=== PATIENT | female | born 1940 | race Caucasian/White ===

== ENCOUNTER → 2017-12-28 10:22 | Outpatient (CLI) | payer MEDICARE, OTHER, SELFPAY ==
[2017-12-28 10:35] VITALS: BP 131/82; PULSE 82; RESP 16; TEMP 36.4; O2SAT 94; BMI 23.0
[2017-12-28] MEDS: DENOSUMAB 60 MG/ML ML SQ (10:52)
== END ==
PROVIDERS: Family Provider Internal Medicine; PCP Internal Medicine; Visit Provider Internal Medicine
DX: M81.0 Age-related osteoporosis without current pathological fracture (principal)
CPT/HCPCS: 96372

== ENCOUNTER → 2018-03-17 06:08 | Outpatient (CLI) | payer MEDICARE, OTHER, SELFPAY ==
--- NOTE | 2018-03-17 06:12 | ECHOD_ITS ---
Reason For Study: CAD/ASHD Procedure This was a 2D Doppler, Color Flow transthoracic echocardiogram. The exam was of adequate technical quality. Exam performed in department. Left Ventricle Normal LV size. Left ventricular systolic function is normal. The estimated ejection fraction is 70 %. Normal diastology for age. No regional wall motion abnormalities noted. Right Ventricle Normal RV size. Normal systolic function. Atria Borderline to mildly enlarged left atrium. Normal right atrium. No doppler evidence for ASD. Mitral Valve There is mild mitral annular calcification. Normal mitral valve. Trivial mitral valve insufficiency. Tricuspid Valve Normal tricuspid valve. Trivial tricuspid valve insufficiency. Right ventricular systolic pressure estimated to be 29 mmHg. Aortic Valve Trisinus/trileaflet aortic valve. Mild focal aortic valve thickening. Pulmonic Valve The pulmonic valve is not well visualized. Great Vessels Normal sized aortic root. Pericardium/Pleural No pericardial effusion. MMode/2D Measurements & Calculations LVIDd: 3.6 cm IVSd: 0.97 cm Ao root diam: 3.0 cm LVIDs: 2.3 cm LVPWd: 0.93 cm LA dimension: 2.8 cm RVDd: 2.2 cm FS: 36.6 % LAV(MOD-bp): 38.2 ml EDV(MOD-sp4): 62.9 ml EDV(MOD-sp2): 64.9 ml LAV(MOD-bp) Indexed: 23.6 ml/m2 ESV(MOD-sp4): 28.2 ml EF(MOD-sp2): 63.6 % LAV(MOD-sp2): 40.3 ml EF(MOD-sp4): 55.1 % LAV(MOD-sp4): 35.1 ml SV(MOD-sp4): 34.7 ml SV(MOD-sp2): 41.3 ml LA A4 area: 14.3 cm2 RA A4 area: 10.1 cm2 Time Measurements MV dec time: 0.28 sec Doppler Measurements & Calculations MV E max arden: 93.7 cm/sec Lat Peak E' Arden: 7.5 cm/sec Med Peak E' Arden: 8.3 cm/sec MV A max arden: 110.7 cm/sec E/E' lat: 12.5 E/E' med: 11.3 MV E/A: 0.85 Ao V2 max: 151.8 cm/sec LV V1 max: 116.2 cm/sec PA V2 max: 95.1 cm/sec Ao max P.2 mmHg LV V1 max P.4 mmHg TR max arden: 255.6 cm/sec TR max P.2 mmHg Interpretation Summary Left ventricular systolic function is normal. The estimated ejection fraction is 70 %. Borderline to mildly enlarged left atrium. There is mild mitral annular calcification. Trivial mitral valve insufficiency. Trivial tricuspid valve insufficiency. Mild focal aortic valve thickening. Right ventricular systolic pressure estimated to be 29 mmHg. Normal diastology for age. Ordering Physician: Amol Lara Referring Physician: BHAVNA SANTAMARIA Performed By: Kira Noguera RDCS
--- NOTE | 2018-03-17 09:11 | STRESSREP ---
Stress Test Report Date: 03/17/2018 Procedure: Pharmacologic stress nuclear imaging study Indications: CAD Consent: Per the patient Procedure: The patient underwent pharmacologic (Regadenoson) evaluation with a peak heart rate of 96 beats per minute (68 predicted maximal heart rate) and a peak blood pressure of 142/100 mmHg. The baseline ECG demonstrated normal sinus rhythm. The peak pharmacologic ECG demonstrated no obvious ECG changes. [There were no cardiac dysrhythmias pretest, during pharmacologic infusion, or recovery]. [There was no complaint of chest discomfort during pharmacologic infusion or recovery]. The examination was discontinued secondary to completion of protocol. Impression: 1. Pharmacologic (Regadenoson) evaluation 2. Peak pharmacologic ECG with no obvious ECG changes. 3. There were no cardiac dysrhythmias pretest, during pharmacologic infusion, or recovery 4. Nuclear images pending Myocardial perfusion imaging study: Technique: The patient was injected with 11.6 millicuries of technetium 99m Cardiolite and subsequently rest SPECT Cardiolite nuclear imaging was obtained in the horizontal long, vertical long, and short axis views. The patient underwent pharmacologic (Regadenoson) evaluation with a peak heart rate of 96 beats per minute (68% percent predicted maximal heart rate) and a peak blood pressure of 142/100 mmHg. The patient was injected with 33.7 millicuries of technetium 99m Cardiolite and subsequently stress SPECT Cardiolite nuclear imaging was obtained in the horizontal long, vertical long, and short axis views. A gated Cardiolite study at peak stress was obtained. Interpretation: Rest and stress SPECT Cardiolite nuclear imaging status post realignment, normalization, and attenuation correction demonstrate relative uniform tracer uptake and myocardial perfusion appearing within normal limits. There is end systolic thickening and brightening. The gated Cardiolite study demonstrates myocardial thickening and inward wall motion. The reported LVEF is 83%. Impression: 1. Rest and stress SPECT Cardiolite nuclear imaging demonstrate relative uniform tracer uptake and myocardial perfusion appearing within normal limits. 2. The gated Cardiolite study reports an LVEF 83%. This note was generated with [employer] software. It may contain incorrect words, spelling, and punctuation that were not noted in checking the note before signing.
== END ==
PROVIDERS: Family Provider Internal Medicine; PCP Internal Medicine; Visit Provider Internal Medicine Cardiovascular Disease
DX: I25.10 Atherosclerotic heart disease of native coronary artery without angina pectoris (principal)
CPT/HCPCS: 78452; 93017; 93306; A9500; A4216; J2785

== ENCOUNTER → 2018-06-30 10:30 | Outpatient (CLI) | payer MEDICARE, OTHER, SELFPAY ==
[2018-06-30 10:36] VITALS: BP 130/80; PULSE 89; RESP 18; TEMP 36.3; O2SAT 95; BMI 23.0
[2018-06-30] MEDS: DENOSUMAB 60 MG/ML ML SQ (10:44)
== END ==
PROVIDERS: Family Provider Internal Medicine; PCP Internal Medicine; Visit Provider Internal Medicine
DX: M81.0 Age-related osteoporosis without current pathological fracture (principal)
CPT/HCPCS: 96372; J0897

== ENCOUNTER → 2018-09-13 15:27 | Outpatient (CLI) | payer MEDICARE, OTHER, SELFPAY ==
[2018-06-30 10:36] VITALS: BMI 23.0
--- NOTE | 2018-09-13 15:32 | BI_ITS ---
MAMMOGRAPHY - BILATERAL SCREENING REASON FOR EXAM: Female, 77 years old. Routine annual screening examination. PERTINENT HISTORY: Non-contributory. TECHNIQUE: Digital bilateral breast sinai (3D mammographic acquisition) in the CC and MLO projections. 2-D mediolateral oblique (MLO) and craniocaudad (CC) views of both breasts were obtained. CAD: Full Field Digital Mammography with Computer Added Detection was performed. COMPARISON: Comparison is made with prior study dated November 16, 2016 and November 14, 2015. FINDINGS: Breast Composition: There are scattered areas of fibroglandular density. There are no dominant masses or suspicious calcifications. No other significant abnormalities are identified. There has been no significant change since the prior study. BI/SCREENING MAMM (CAD), BILAT IMPRESSION: Stable bilateral screening mammogram. Yearly follow-up mammogram recommended. (A) ASSESSMENT CATEGORY: BIRADS Category 1: Negative. A letter regarding these results will be sent to the patient by the facility within 30 days. Approximately 10% of breast cancers are not detected by mammography. A normal mammogram should not delay biopsy of a clinically suspicious abnormality. [id number] Electronically Signed: Shreyas Westbrook MD at 9:34 EST Tel [phone], Service support ,
--- NOTE | 2018-09-13 15:36 | BD_ITS ---
STUDY: DUAL ENERGY X-RAY ABSORPTIOMETRY / DXA REASON FOR EXAM: Female, 77 years old. The patient is postmenopausal. Loss of height. TECHNIQUE: Bone Mineral Density (BMD) measurements of lumbar spine and bilateral hips were obtained. COMPARISON: Comparison is made with prior study dated November 14, 2015. FINDINGS: Lumbar Spine (L1-L4): g/cm2 (0.853) / T-score (-2.6) / Z-score (-0.8) Findings are suggestive of osteoporosis with a high fracture risk. Left Femur Total: g/cm2 (0.683) / T-score (-2.6) / Z-score (-0.6) Left Femoral Neck: g/cm2 (0.659) / T-score (-2.7) / Z-score (-0.6) Right Femur Total: g/cm2 (0.595) / T-score (-3.3) / Z-score (-1.3) Right Femoral Neck: g/cm2 (0.624) / T-score (-3.0) / Z-score (-0.8) The T-Scores on the most recent prior examination were: Lumbar Spine (L1-L4): There has been improvement of bone density since the previous examination. Left Femur Total: which represents an improvement of 1.8%. Right Femur Total: which represents an improvement of 5.7%. BD/Dexa Bone Density Study IMPRESSION: The patient is considered osteoporotic as outlined below according to World Ernesto Organization (WHO) criteria with a high fracture risk. There has been improvement of bone density since the previous examination. Reference Information: The T-score is the number of standard deviations above or below the standard which is normal for young adults at their peak bone mineral density. The World Health Organization (WHO) interprets the T-scores as follows: Above -1 Normal bone density Between -1 and -2.5 Osteopenia Equal to / or below -2.5 Osteoporosis As a practical clinical guideline, osteopenia may be graded as follows: Mild -1 through -1.5 Moderate -1.6 through -2.0 Severe -2.1 through -2.4 The Z-score is the number of standard deviations above or below age-matched controls. A Z-score of less than -1.5 would be considered abnormal. References: 1. NIH Osteoporosis and Related Bone Diseases http://www.osteo.org 2. International Society for Clinical Densitometry http://www.iscd.org 3. National Osteoporosis Foundation http://www.nof.org Electronically Signed: Shreyas Westbrook MD at 10:59 EST Tel [phone], Service support ,
== END ==
PROVIDERS: Family Provider Internal Medicine; PCP Internal Medicine; Referring Provider Internal Medicine; Visit Provider Internal Medicine
DX: Z12.31 Encounter for screening mammogram for malignant neoplasm of breast (principal); Z78.0 Asymptomatic menopausal state
CPT/HCPCS: 77063; 77067; 77080

== ENCOUNTER → 2018-10-18 11:24 | Outpatient (CLI) | payer MEDICARE, OTHER, SELFPAY ==
[2018-10-18 10:57] VITALS: BMI 23.0
--- NOTE | 2018-10-18 11:35 | RAD_ITS ---
STUDY: X-RAY CHEST REASON FOR EXAM: Female, 77 years old. Preprocedure chest radiograph TECHNIQUE: 2 views COMPARISON: None. FINDINGS: There are emphysematous changes in both upper lobes, flattening of the hemidiaphragms and blunting of the costophrenic angle. The heart is normal. There is colonic interposition between the right hemidiaphragm and the liver. Normal visualized thoracic spine. Normal visualized ribs, clavicles, and shoulders. There is no demonstrated abnormality of the visualized soft tissue structures of the upper abdomen. 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 No acute findings in the lungs Electronically Signed: Odell Soler MD at 3:45 EST Tel , Service support ,
[2018-10-18 12:29] LABS: Absolute Lymphocyte Count 1.67 X10^3/ul (0.83-4.51); Absolute Neutrophil Count 7.9 X10^3/uL (2.0-7.7); Basophil# 0.04 X10^3/uL; Basophil% 0.4 % (0-1); Eosinophil# 0.16 X10^3/uL; Eosinophils% 1.5 % (0-5); Hematocrit 38.7 % (37-47); Hemoglobin 12.5 g/dl (12.0-15.0); Lymphocyte # 1.67 X10^3/ul (4.0); Lymphocyte % 15.5 % (19-41); Mean Corp Hgb Conc 32.3 g/gl (32-36); Mean Corpuscular Hgb 33.5 pg (27.0-32.0); Mean Corpuscular Volume 103.8 fL (81-99); Mean Platelet Vol. 11.4 fl (6.2-12.0); Monocyte# 0.91 X10^3/uL; Monocyte% 8.5 % (0-10); Neutrophil # 7.94 X10^3/uL (2.7-7.7); Neutrophil % 73.8 % (47-70); Platelet Count 212 K/mm3 (150-450); RBC Distribution Width CV 13.3 % (11.6-14.6); RBC Distribution Width SD 49.2 fl (35.1-43.9); Red Blood Count 3.73 M/mm3 (4.2-5.4); White Blood Count 10.8 K/mm3 (4.4-11.0)
[2018-10-18 12:38] LABS: POSITIVE COUNT NO; POSITIVE DIFFERENTIAL NO; POSITIVE MORPHOLOGY NO; Prothrombin Time (Protime)PT. 13.3 SECONDS (11.7-14.9)
[2018-10-18 13:11] LABS: Anion Gap 5 (5-15); BUN 20 mg/dL (7-18); BUN/Creat Ratio 16.5 RATIO (10-20); Calcium,Total 9.9 mg/dL (8.5-10.1); Chloride 107 mmol/L (98-107); Creatinine, Serum 1.21 mg/dL (0.55-1.02); EST Glomerular Filtration Rate 46 mL/min (>60); Est Glom Filt Rate - Afr Amer 55 mL/min (>60); Glucose 94 mg/dL (74-106); Potassium 4.1 mmol/L (3.5-5.1); Sodium Level 141 mmol/L (136-145)
== END ==
PROVIDERS: Family Provider Internal Medicine; PCP Internal Medicine; Referring Provider Nurse Practitioner Family; Visit Provider Nurse Practitioner Family
DX: I25.10 Atherosclerotic heart disease of native coronary artery without angina pectoris (principal); R06.09 Other forms of dyspnea; I10 Essential (primary) hypertension; E78.5 Hyperlipidemia, unspecified; J44.9 Chronic obstructive pulmonary disease, unspecified
CPT/HCPCS: 36415; 71046; 80048; 85025; 85610

== ENCOUNTER 2018-10-25 07:42 | Day surgery (SDC) | payer MEDICARE, OTHER, SELFPAY ==
[2018-09-22 13:02] VITALS: BMI 22.8
[2018-10-18 10:57] VITALS: BMI 23.0
[2018-10-24 13:33] VITALS: BMI 23.0
--- NOTE | 2018-10-25 10:55 | CL.D_ITS ---
Patient Name: ZAHIDA FRYE Study Date: 10/25/2018 Performing: Amol Lara MD Ht: 62.99 inches 160 cm : 1940 Wt: 130.07 lbs 59 kg Age: 77 Gender: female BSA: 1.61 PROCEDURE(S) PERFORMED ZB30-VWB/LHC/COR/LV CLINICAL PROFILE AND INDICATIONS Indications: shortness of breath, Suspected CAD Heart Failure: None Stress/Imaging Date: 03/17/2018Stress Test with SPECT MPI: Negative Angina Classification Anginal Classification w/in 2 Weeks: No symptoms CAD Presentations: Other: shortness of breath CONCLUSIONS Elevated Left Ventricular End Diastolic Pressure (mild) Right heart pressures - Normal Intracardiac shunting: None Normal LV size, wall motion,and systolic function LVEF: by LV gram 65 % Triple vessel CAD of the LAD/LCX: mild luminal irregularities and DX1: proximal eccentric 25% stenosi s Mitral Valve Insufficiency Trace RECOMMENDATIONS Risk factor modification Medical therapy Consider pulmonology consult for shortness of breath DESCRIPTION OF PROCEDURE The patient arrived to the procedure lab. The risks and benefits of the procedure as well as a full d escription of our services here and current unavailability of surgical backup were fully explained to the patient and/or their significant other prior to the catheterization. The Timeout was completed, verifying the correct patient and procedure. The patient's procedural site was prepped and draped in the usual fashion. Local anesthetic was given subcutaneously to right groin region with Lidocaine 2%. Using a modified Seldinger technique, arterial access was obtained via the right femoral artery, a 4 Fr sheath was inserted Venous access was obtained via the right femoral vein, a 7Fr sheath was insert ed. A 7Fr thermal dilution catheter was inserted and right heart pressures were recorded, it was then advanced to PA position for cardiac outputs. Thermal dilution cardiac outputs were then recorded. O2 saturations were then obtained. Left Ventriculography was performed in PERRY projection using a 4 Fr. Pigtail catheter. Simultaneous pressures were then recorded. LV to AO pullback pressure s were then recorded. The Thermal dilution catheter was then removed. Left Coronary Artery selective angiography was performed in multiple views using a 4 Fr. JL5 catheter. Right Coronary Artery selecti ve angiography was then performed in multiple views using a 4 Fr. 3DRC catheter. CORONARY ANGIOGRAPHY DOMINANCE: Left Dominant LEFT HEART ASSESSMENT Left Ventricular Ejection Fraction: by LV Gram 65 % Normal LV wall motion Elevated Left Ventricular End Diastolic Pressure LVEDP: 15 mmHg RIGHT HEART ASSESSMENT Thermal CO: 4.09 Thermal CI: 2.54 [place] CO: 7 [place] CI: 4.35 PW: 17/16 14 PA: 28/8 16 RV: 26/0 4 RA: 5/3 2 PVR: 39 SVR: 2191 Right Heart pressures - normal Intracardiac shunting: None LEFT MAIN: Angiographically normal LEFT ANTERIOR DECENDING ARTERY: Mild luminal irregularities DIAGONAL 1: Proximal - Eccentric: 25 % Stenosis CIRCUMFLEX ARTERY: Mild luminal irregularities RIGHT CORONARY ARTERY: Angiographically normal VALVE FINDINGS: Normal Aortic Valve function Mitral Valve Insufficiency - Trace AORTIC ROOT: Angiographically normal COMPLICATIONS No Complications PROCEDURE MEDICATIONS Versed 1 mg IV Oxygen: 2 L/min via nasal cannula SUMMARY OF HEMODYNAMIC DATA Time AIR REST ECG 08:17:38 RA 5/3 (2) SV 10:03:31 RV 26/0, 4 10:04:05 PA 28/8 (16) PA 10:05:19 PW 17/16 (14) PV 10:06:33 LV 128/-1, 11 10:11:56 LV 160/-3, 15 10:12:05 LV 152/-3, 12 10:12:34 PW / (13) 10:12:34 LV 159/3, 23 10:13:44 PW 17/11 (13) 10:13:44 LVp 163/3, 23 10:14:02 AOp 160/80 (114) 10:14:07 PA 35/13 (23) 10:14:30 RV 34/0, 7 10:14:44 RA 7/6 (4) 10:14:58 AO 143/92 (114) SA 10:17:30 Type SV CO (l/m) CI (l/m/ HR Time AIR REST Thermal 52.40 4.09 2.54 78 08:17:38 [place] 89.70 7.00 4.35 78 08:17:38 Label % O2 Pres/Loc Time AIR REST IVC 81 SV 10:37:29 SVC 74 10:37:34 PA 75 PA 10:37:40 AO 99 PV 10:39:00 Signed By Amol Lara MD On 10/25/2018 10:54:03 AM Amol Lara MD
[2018-10-25 13:22] LABS: Base Excess 1 mmol/L (-2 to +2); Bicarbonate 25.8 mmol/L (22-26); Blood Gas Specimen Type ART; PO2 150 mmHG (75-100); SO2 99 % (95-99); Total Carbon Dioxide 27 mmol/L; pCO2 42.3 mmHg (35-45); pH 7.39 (7.35-7.45)
[2018-10-25 13:22] LABS: Blood Gas Specimen Type VEN; VBG BASE EXCESS 1 mmol/L (-1.0-3.5); VBG Bicarbonate 26 mmol/L (22-26); VBG Oxygen Content 28 mmol/L (23-33); VBG PO2 46 mmHg (25-40); VBG SO2 81 % (50-70); VBG pCO2 43.9 mmHg (41-51); VBG pH 7.39 (7.32-7.42)
[2018-10-25 13:22] LABS: Blood Gas Specimen Type VEN; VBG BASE EXCESS 2 mmol/L (-1.0-3.5); VBG Bicarbonate 27 mmol/L (22-26); VBG Oxygen Content 28 mmol/L (23-33); VBG PO2 41 mmHg (25-40); VBG SO2 74 % (50-70); VBG pCO2 45.8 mmHg (41-51); VBG pH 7.37 (7.32-7.42)
[2018-10-25 13:22] LABS: Blood Gas Specimen Type VEN; VBG BASE EXCESS 1 mmol/L (-1.0-3.5); VBG Bicarbonate 26 mmol/L (22-26); VBG Oxygen Content 27 mmol/L (23-33); VBG PO2 42 mmHg (25-40); VBG SO2 75 % (50-70); VBG pCO2 45.1 mmHg (41-51); VBG pH 7.37 (7.32-7.42)
== END 2018-10-25 15:43 | disposition home or self-care (01) ==
LOC: CLSP 07:43
PROVIDERS: Family Provider Internal Medicine; PCP Internal Medicine; Referring Provider Internal Medicine Cardiovascular Disease; Visit Provider Internal Medicine Cardiovascular Disease
DX: I25.10 Atherosclerotic heart disease of native coronary artery without angina pectoris (principal); I34.0 Nonrheumatic mitral (valve) insufficiency; I10 Essential (primary) hypertension; E78.00 Pure hypercholesterolemia, unspecified; J44.9 Chronic obstructive pulmonary disease, unspecified; F32.9 Major depressive disorder, single episode, unspecified; Z79.82 Long term (current) use of aspirin; Z79.899 Other long term (current) drug therapy; Z87.891 Personal history of nicotine dependence
CPT/HCPCS: 82803; 93460; 99152; 99153; J7040; C1751; C1769; C1894; Q9967

== ENCOUNTER → 2018-12-29 | Outpatient (CLI) | payer MEDICARE, OTHER, SELFPAY ==
[2018-10-24 13:33] VITALS: BMI 23.0
[2018-12-29 10:19] VITALS: BP 129/75; PULSE 78; RESP 16; TEMP 36.4; O2SAT 99; BMI 22.4
[2018-12-29] MEDS: DENOSUMAB 60 MG/ML ML SQ (10:22)
== END | disposition home or self-care (01) ==
PROVIDERS: Family Provider Internal Medicine; PCP Internal Medicine; Referring Provider Internal Medicine; Visit Provider Internal Medicine
DX: M81.0 Age-related osteoporosis without current pathological fracture (principal)
CPT/HCPCS: 96372; J0897

== ENCOUNTER → 2019-04-11 | Outpatient (CLI) | payer MEDICARE, OTHER, SELFPAY ==
[2019-03-15 10:34] VITALS: BMI 22.3
--- NOTE | 2019-04-11 12:53 | CDU_ITS ---
Reason For Study: word finding difficulty Rt. Velocities/BP Lt. Velocities/BP Prox CCA 63.0/14.7 cm/sec. Prox CCA 84.9/19.0 cm/sec. Mid CCA 42.1/10.8 cm/sec. Mid CCA 55.2/12.4 cm/sec. Dist CCA 49.9/13.4 cm/sec. Dist CCA 68.4/15.7 cm/sec. Prox ICA 45.4/11.3 cm/sec. Prox ICA 50.8/16.8 cm/sec. Mid ICA 26.5/9.1 cm/sec. Mid ICA 38.0/13.3 cm/sec. Dist ICA 56.4/20.1 cm/sec. Dist ICA 49.0/19.5 cm/sec. Rt. ICA/CCA = 1.3. Lt. ICA/CCA = .9. Prox ECA 63.0/13.4 cm/sec. Prox ECA 69.5/17.9 cm/sec. Rt. Vert. 36.6/10.2 cm/sec. Lt. Vert. 27.8/9.1 cm/sec. Right Extracranial There is homogeneous, smooth atherosclerotic plaque noted in the right common carotid artery. There is heterogeneous, irregular atherosclerotic plaque noted in the right internal carotid artery. The right internal carotid artery is very tortuous. There is homogeneous, smooth atherosclerotic plaque noted in the right external carotid artery. Antegrade flow is noted in the right vertebral artery. Left Extracranial There is heterogeneous, irregular atherosclerotic plaque noted in the left common carotid artery. There is heterogeneous, irregular atherosclerotic plaque noted in the left internal carotid artery. The left internal carotid artery is very tortuous. There is intimal thickening but no significant atherosclerotic plaque noted in the left external carotid artery. Antegrade flow is noted in the left vertebral artery. Procedure Carotid Duplex 43165. The exam was diagnostic. Exam performed in department. Interpretation Summary Mild (<50%) stenosis right extracranial internal carotid. Mild (<50%) stenosis left extracranial internal carotid. Flow within the vertebral arteries is antegrade bilaterally. Ordering Physician: Nicci King Performed By: Guevara Oneill RVT
--- NOTE | 2019-04-11 13:13 | CT_ITS ---
STUDY: CT BRAIN WITHOUT CONTRAST REASON FOR EXAM: Female, 78 years old. Difficulty speaking RADIATION DOSAGE (If Supplied By Facility): CTDIvol = ( 44.99 ) mGy, DLP = ( 779.24 ) mGycm TECHNIQUE: Transaxial CT imaging of the brain was performed without administration of intravenous contrast material. Individualized dose optimization techniques were used for this CT. COMPARISON: No relevant priors. FINDINGS: Normal soft tissue structures. Normal calvarium. Calcification of the cavernous carotids Normal size ventricles and extra-axial spaces for the patient's age. Mild periventricular white matter ischemic changes. Normal basal ganglia and thalami. Normal brainstem. Normal cerebellum. There is no intracranial hemorrhage. There are no findings of an acute ischemic infarction. Normal visualized paranasal sinuses. CT/Brain/Head without Contrast IMPRESSION: Mild periventricular white matter ischemic changes. No evidence for acute bleed. If concern for acute infarct MRI recommended. Electronically Signed: Rl Babcock MD at 17:06 EDT , Service support ,
== END | disposition home or self-care (01) ==
LOC: CVS 12:37
PROVIDERS: Family Provider Internal Medicine; PCP Internal Medicine; Referring Provider Internal Medicine; Visit Provider Internal Medicine
DX: R47.89 Other speech disturbances (principal)
CPT/HCPCS: 70450; 93880

== ENCOUNTER → 2019-07-03 11:43 | Outpatient (CLI) | payer MEDICARE, OTHER, SELFPAY ==
[2019-03-15 10:34] VITALS: BMI 22.3
--- NOTE | 2019-07-03 11:45 | CT_ITS ---
STUDY: CT ABDOMEN AND PELVIS WITHOUT CONTRAST REASON FOR EXAM: Female, 78 years old. Abdominal pain, hematuria RADIATION DOSAGE (If Supplied By Facility): CTDIvol = ( 6.38 ) mGy, DLP = ( 248.56 ) mGycm TECHNIQUE: Transaxial images were obtained from the dome of the diaphragm to the symphysis pubis without oral contrast, and without intravenous contrast. Sagittal and coronal images were reconstructed. Individualized dose optimization techniques were used for this CT. COMPARISON: None. FINDINGS: Moderate emphysematous changes. The visualized portions of the heart are within normal limits. Normal liver. There is non-visualization of the gallbladder, which may be secondary to either contraction or a prior cholecystectomy. Normal spleen. Normal pancreas. Normal bilateral adrenal glands. Normal right kidney. Normal left kidney. Normal visualized stomach. Normal small intestine. There are multiple colonic diverticula consistent with diverticulosis. The appendix is visualized and appears normal. There is diffuse atherosclerotic calcification of the abdominal aorta, without a demonstrated aneurysm. Normal inferior vena cava. Normal retroperitoneum. Normal urinary bladder. Normal abdominal wall. Normal osseous structures. CT/Abdomen/Pelvis without Cont IMPRESSION: No acute abnormality. Electronically Signed: Osmin Lind MD at 12:26 EDT Tel , Service support ,
== END ==
PROVIDERS: Family Provider Internal Medicine; PCP Internal Medicine; Referring Provider Nurse Practitioner; Visit Provider Nurse Practitioner
DX: R31.9 Hematuria, unspecified (principal)
CPT/HCPCS: 74176

== ENCOUNTER → 2019-09-08 11:07 | Outpatient (CLI) | payer MEDICARE, OTHER, SELFPAY ==
[2019-03-15 10:34] VITALS: BMI 22.3
--- NOTE | 2019-09-08 11:11 | RAD_ITS ---
STUDY: X-RAY - LUMBAR SPINE REASON FOR EXAM: Female, 78 years old. LBP TECHNIQUE: 5 view(s) of the lumbar spine were obtained. COMPARISON: None FINDINGS: Normal lumbar lordosis. There is a dextroscoliosis of the lumbar spine. There is grade 1 spinal listhesis of L3-L4 and L4-L5 likely due to facet arthropathy. There is diffuse demineralization with multi-level endplate spondylosis. Disc heights are relatively preserved. There is moderate facet arthropathy at multiple mid and lower lower levels. There is no demonstrated fracture. There is no demonstrated spondylolysis of the pars interarticulares. There is atherosclerotic calcification of the abdominal aorta without a demonstrated aneurysm. RAD/L/S Spine Min 4 Views IMPRESSION: 1. Facet degenerative changes, as above. Electronically Signed: Gonzalo Strauss MD ([place]) at 15:29 EST , Service support ,
== END ==
PROVIDERS: Family Provider Internal Medicine; PCP Internal Medicine; Referring Provider Internal Medicine; Visit Provider Internal Medicine
DX: M54.5 Low back pain (principal)
CPT/HCPCS: 72110

== ENCOUNTER 2020-05-13 17:00 | Emergency (ER) | payer MEDICARE, OTHER, SELFPAY ==
[2019-10-02 10:48] VITALS: BMI 22.3
[2020-05-13 17:00] VITALS: BP 141/75; PULSE 87; RESP 16; TEMP 36.2; O2SAT 94; BMI 20.7
--- NOTE | 2020-05-13 17:11 | ED.VIS.GEN ---
History of Present Illness Chief Complaint: Complaint Informant: Patient Onset: Today Current Severity: Moderate Maximum Severity: Moderate Narrative: Patient presents with what she believes is a bladder infection. Today she noted significant dysuria. She reports pain to the perineum. No discharge. No obvious blood with urination. She denies back pain, fever, or chills. 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 (2) Essential hypertension Status: Chronic (3) Pure hypercholesterolemia Status: Chronic Past Medical History - Allergies and Home Meds Allergies/Adverse Reactions: Allergies cefaclor [From Ceclor] Allergy (Verified 05/13/20 17:02) Hives Primary Care Physician: Nicci King DO [Primary Care Provider] - Prior records reviewed: Yes Smoking Status: Former smoker Review of Systems General: Denies: Chills, Fever Eyes: Denies: Visual changes - bilaterally ENT: Denies: Bilateral ear pain Cardiovascular: Denies: Chest pain Respiratory: Denies: Dyspnea, Cough Gastrointestinal: Denies: Abdominal pain, Nausea, Vomiting Genitourinary: Reports: Dysuria, Frequency, - - Perineal pain Musculoskeletal: Denies: Swelling, Extremity Pain Skin: Denies: Rash Hematologic: Denies: Easy bruising, Easy bleeding Allergy: Denies: Uticaria Physical Exam Vital Signs/Narrative: Vital Signs Temp Pulse Resp BP Pulse Ox 05/13/20 17:00 97.1 F L 87 16 141/75 H 94 Inital Vital Signs reviewed: Yes General: Well nourished, Well developed Head: Normocephalic ENT: Moist mucous membranes Neck: Supple Cardiovascular: Regular rate, Regular rhythm Respiratory: No distress, CTA bilaterally Abdomen: Soft, Nontender, Hypoactive bowel sounds Back: Negative for: CVA tenderness Extremities: Nontender Skin: Normal color, No rash Neurological: Alert, Oriented x3 Psychological: Normal affect Diagnostic/Tx/Re-eval Laboratory Results 05/13/20 17:00 Urine Color Yellow Urine Clarity Cloudy Urine pH 8.0 Ur Specific [place] 1.015 Urine Protein 30 H Urine Glucose (UA) Normal Urine Ketones Negative Urine Occult Blood 250 H Urine Nitrite Negative Urine Bilirubin Negative Urine Urobilinogen Normal Ur Leukocyte Esterase 500 H Urine RBC 50-100 SEEN Urine WBC 50-100 SEEN Ur Squamous Epith Cells 0 SEEN Amorphous Sediment 2+ Urine Bacteria 1+ Urine Mucus 0 SEEN - Medical Decision Making Urine culture was sent. Patient will be treated with a course of Macrobid. ED Disposition - Plan for ED Patient: Disposition: Home or Assisted Living Diagnosis: Cystitis Instructions: ED CYSTITIS Female Adult Prescriptions: Nitrofurantoin Macrocrystals [Macrobid] 100 mg PO Q12 #14 cap Transmission Status: Pending to [id number] Referrals: Nicci King DO [Primary Care Provider] - 3-5 Days if not improving
[2020-05-13 17:18] LABS: Mucous, Urine 0 SEEN /hpf (<or=2+); Squamous Epithelial Cells - UA 0 SEEN /hpf (5-10)
[2020-05-13 17:47] LABS: Color, Urine Yellow (Yellow); Glucose, Dipstick Normal (Normal); Ketone-Dipstick Negative (Negative); Leukocyte Esterase-Dipstick 500 /ul (Negative); Nitrite-Dipstick Negative (Negative); Occult Blood-Urine 250 /ul (Negative); Protein-Dipstick 30 mg/dl (Negative); Specific Gravity, Urine 1.015 (1.002-1.030); Urine Bilirubin Dipstick Negative (Negative); Urine Clarity Cloudy (Clear); Urine Urobilinogen Normal (Normal)
[2020-05-13 17:55] LABS: Amorphous Sediment 2+; Bacteria 1+ /hpf (None Seen); Red Blood Cells-Urine 50-100 SEEN /hpf (0-5); White Blood Cells 50-100 SEEN /hpf (0-5)
[2020-05-13] MEDS: Nitrofurantoin Macrocrystals 100 MG Capsule PO (18:04)
== END 2020-05-13 18:06 | disposition home or self-care (01) ==
PROVIDERS: Emergency Provider Emergency Medicine; PCP Internal Medicine
DX: N30.90 Cystitis, unspecified without hematuria (principal); I10 Essential (primary) hypertension; E78.00 Pure hypercholesterolemia, unspecified; I25.10 Atherosclerotic heart disease of native coronary artery without angina pectoris; Z79.82 Long term (current) use of aspirin; Z79.899 Other long term (current) drug therapy; Z87.891 Personal history of nicotine dependence
CPT/HCPCS: 81001; 87077; 87086; 87088; 87186; 99281; 99283

== ENCOUNTER → 2020-07-19 08:26 | Outpatient (CLI) | payer MEDICARE, OTHER, SELFPAY ==
--- NOTE | 2020-07-19 08:28 | BI_ITS ---
MAMMOGRAPHY - BILATERAL SCREENING REASON FOR EXAM: Female, 79 years old. Routine annual screening examination. PERTINENT HISTORY: Non-contributory. TECHNIQUE: Digital bilateral breast guero (3D mammographic acquisition) in the CC and MLO projections. 2-D mediolateral oblique (MLO) and craniocaudad (CC) views of both breasts were obtained. CAD: Full Field Digital Mammography with Computer Added Detection was performed. COMPARISON: Comparison is made with prior study dated 09/13/2018 and 11/16/2016. FINDINGS: Breast Composition: The breasts are heterogeneously dense, which may obscure small masses. There are no dominant masses or suspicious calcifications. No other significant abnormalities are identified. There has been no significant change since the prior study. BI/SCREEN MAMM (CAD) W/GUERO BILAT IMPRESSION: Stable bilateral screening mammogram. Yearly follow-up mammogram recommended. (A) ASSESSMENT CATEGORY: BIRADS Category 1: Negative. A letter regarding these results will be sent to the patient by the facility within 30 days. Approximately 10% of breast cancers are not detected by mammography. A normal mammogram should not delay biopsy of a clinically suspicious abnormality. [id number] Electronically Signed: Shreyas Westbrook, at 10:06 EST , Service support ,
== END ==
PROVIDERS: PCP Internal Medicine; Referring Provider Internal Medicine; Visit Provider Internal Medicine
DX: Z12.31 Encounter for screening mammogram for malignant neoplasm of breast (principal)
CPT/HCPCS: 77063; 77067

== ENCOUNTER 2020-09-07 17:36 | Inpatient (IN) | payer MEDICARE, OTHER, SELFPAY ==
[2020-09-07 17:37] VITALS: BP 160/92; PULSE 85; RESP 16; TEMP 36.5; O2SAT 95; BMI 20.9
--- NOTE | 2020-09-07 18:23 | ED.VISSUMM ---
- ER Visit Summary Date of Service: 09/07/20 Chief Complaint: Right hip and right buttock pain History of Present Illness: The patient is a 79 F she fell about a month ago. Injuring her right buttock and right hip. Had x-rays about 10 days ago which showed arthritis but no acute fracture. States the pain is getting worse. It appears now is more in her right posterior buttock going down her hamstring. She denies any other injuries. Physical Examination: Older female no acute distress. Vital signs stable afebrile. H EENT exam unremarkable atraumatic. Pupils round reactive light. No signs of trauma to his face or scalp. Neck nontender. Trachea midline. Lungs clear to auscultation bilaterally. Chest nontender. Heart regular rate and rhythm no murmur. Abdomen soft nontender normal bowel sounds no peritoneal signs. Pelvic girdle intact. Back spine nontender. Right SI tenderness. Left unremarkable. Hip minimal tenderness. She is able do flexion-extension of the right hip knee ankle and foot. Straight leg raise is positive on the right about 30 degrees. Normal dorsi plantarflexion. Left lower extremity unremarkable. There is no shortening or rotation of the right lower extremity. Neurologically she is awake alert with no focal motor deficits. Test Results: Right hip x-ray interpreted by myself 2 views shows a right femoral neck fracture. This is new from the prior film about 2 weeks ago. This was also read by the radiologist. Due to the hip fracture labs are being obtained for preop along with a chest x-ray and EKG. EKG done for preop purposes shows normal sinus rhythm rate of 73 with no acute abnormality. No PR or ischemia. No dysrhythmia. CBC white count of 13. Hemoglobin 11 previously was 12. Chemistries unremarkable potassium 3.2. Normal gap. Creatinine of 1. PT/INR normal. Preop chest x-ray portable 1 view read by myself shows no acute abnormality. Chronic changes. No infiltrate. Normal cardiac silhouette mediastinum. Covid rapid antigen pending. Emergency Department Course and Treatment: [place] for pain. Clinically this is not a dislocation she has range of motion. I will get a repeat x-ray due to the fall a month ago. Treatment Plan: I spoke to the hospitalist Dr. Fabienne Rosas to admit the patient. 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 Disposition: Discharge Impression: Status post fall Acute right hip femoral neck fracture History of hypertension and COPD. This note was generated with [employer] dictation software. It may contain incorrect words, spelling, and punctuation that were not noted in review of the chart prior to signing ED Disposition - Plan for ED Patient: Referrals: Nicci King DO [Primary Care Provider] -
[2020-09-07] MEDS: HYDROcodone Bitartrate/Apap 5/325 Tablet PO (18:29)
--- NOTE | 2020-09-07 18:36 | RAD_ITS ---
STUDY: X-RAY - PELVIS AND RIGHT HIP REASON FOR EXAM: Female, 79 years old. pt fell 4 weeks ago and c/o worsening pain in right hip. had xrays done that showed mild arthritis about 1.5weeks ago TECHNIQUE: 3 views of the pelvis and hip. COMPARISON: 08/22/2020 FINDINGS: There is a non-specific bowel gas pattern. Normal visualized soft tissue structures. There are atherosclerotic vascular calcifications. Normal bilateral iliac wings, sacroiliac joints and visualized sacrum. Normal bilateral superior and inferior pubic rami. Normal pubic symphysis. Normal bilateral ischial tuberosities. Right femoral neck fracture with proximal femoral subsidence and varus deformity. Normal acetabulum. Normal hip joint. RAD/HIP, UNI W/ Pelvis 2-3 Views IMPRESSION: Right femoral neck fracture (new). Electronically Signed: Gonzalo Strauss MD ([place]) at 18:52 EST , Service support ,
--- NOTE | 2020-09-07 20:19 | HP.PCM_ITS ---
Problem List (1) Closed right hip fracture Status: Acute Qualifiers: Encounter type: initial encounter Qualified Code(s): S72.001A - Fracture of unspecified part of neck of right femur, initial encounter for closed fracture (2) Former tobacco use Status: Chronic (3) COPD (chronic obstructive pulmonary disease) Status: Chronic Qualifiers: COPD type: unspecified COPD Qualified Code(s): J44.9 - Chronic obstructive pulmonary disease, unspecified (4) Anxiety and depression Status: Chronic (5) Pure hypercholesterolemia Status: Chronic (6) Essential hypertension Status: Chronic (7) Atherosclerotic heart disease of [place] coronary artery without angina pectoris Status: Chronic Qualifiers: [place] vs. 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 Patient notes pain ongoing, constant, worsening, severe to the right hip, worse with any ambulation or weightbearing status, currently rated 3-4 out of 10 in severity. Work-up in the ED included T 97.7, heart rate 85, BP 160/92, respiratory rate 16, 95% on room air, CBC with WC 13.3, hemoglobin 11.3, platelet 220 without shift performed, coags unremarkable, chemistry with potassium 3.2, BUN/creatinine 25/1.08 pending type and screen per ED, plain film of the hip and pelvis with evident right femoral neck fracture, chest x-ray with chronic interstitial changes with no acute cardiopulmonary findings, EKG with sinus rhythm with no acute evidence of ischemia. ED physician did discuss case with Dr. Arreaga, orthopedic surgeon. Dr. Arreaga did request CT of the hip as he noted findings on film suspicious despite recent plain film previously normal as noted possible pathologic fx. 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 Nonrheumatic mitral valve regurgitation (Chronic) Medical History: Medical History (Last Reviewed 10/02/19 @ 10:51 by Brianna Muñoz) Pure hypercholesterolemia (Chronic) E78.00 Essential hypertension (Chronic) I10 Atherosclerotic heart disease of [place] coronary artery without angina pectoris (Chronic) I25.10 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 Nonrheumatic mitral valve regurgitation (Chronic) I34.0 Depression F32.9 COPD (chronic obstructive pulmonary disease) J44.9 Allergies cefaclor [From Ceclor] Allergy (Verified 09/07/20 17:37) Hives Home Medications: Ambulatory Orders Medication Instructions Recorded Aspirin [Aspir-Low] 81 mg PO DAILY 12/28/17 Atorvastatin Calcium 40 mg PO DAILY 12/28/17 Cranberry Fruit Extract [Cranberry] 500 mg PO DAILY 12/28/17 Isosorbide Mononitrate [Imdur] 30 mg PO DAILY 12/28/17 Multivitamin [Daily Multiple 1 tab PO DAILY 12/28/17 Vitamin] Paroxetine HCl [Paxil Cr] 37.5 mg PO DAILY 12/28/17 Ramipril [Altace] 10 mg PO DAILY 12/28/17 calcium carbonate 600 mg calcium 600 mg PO QDAY tab 12/30/17 (1,500 mg) tablet cholecalciferol (vitamin D3) 10 400 unit PO QDAY 12/30/17 mcg (400 unit) capsule lactobacillus combination no.8 3 3,000 mmu cells PO QDAY 12/30/17 billion cell capsule magnesium oxide 400 mg (241.3 mg 400 mg PO QDAY tab 12/30/17 magnesium) tablet omega-3 fatty acids 1,000 mg 1,000 mg PO QDAY 12/30/17 capsule buspirone 15 mg tablet 15 mg PO DAILY 30 Days #60 tab 01/17/19 Fluticasone/Umeclidin/Vilanter 1 puff INHALATION DAILY 09/07/20 [Lamar Burt 100-62.5-25] Surgical History: Surgical History (Last Reviewed 10/02/19 @ 10:51 by Brianna Muñoz) History of cholecystectomy Z90.49 Surgical History: - - Cholecystectomy, tonsillectomy. Psychiatric History: Anxiety, Depression MANAGER SECURITY History: No pertinent MANAGER SECURITY history Lives: Alone Smoking Status: Former smoker - Patient quit cigarette tobacco usage in 1994 with prior to this approximately 3 pack/day starting when she was a teenager. Tobacco Use: Non-smoker Alcohol: Occasional Drugs: None - *Family History Maternal Family History: Family History (Last Reviewed 10/02/19 @ 10:51 by Brianna Muñoz) Father Myocardial infarction, Onset Age: 43 Brother Myocardial infarction, Onset Age: 52 Brother CAD (coronary artery disease) History Items: Cancer - Mother with history of pancreatic cancer. Paternal Family History: Family History (Last Reviewed 10/02/19 @ 10:51 by Brianna Muñoz) Father Myocardial infarction, Onset Age: 43 Brother Myocardial infarction, Onset Age: 52 Brother CAD (coronary artery disease) History Items: High Cholesterol, Heart Disease, Hypertension Review of Systems Constitutional: Reports: Malaise, Weakness, Fatigue. Denies: Chills, Fever, Weight Change HEENT: Denies: Head Aches, Sinus Congestion, Sinus Drainage Cardiovascular: Denies: Chest Pain, Palpitations Respiratory: Denies: Cough, Shortness of breath at rest, Sputum production Gastrointestinal: Denies: Abdominal Pain, Nausea, Vomiting Genitourinary: Denies: Dysuria Musculoskeletal: Reports: Joint Pain, Joint stiffness, Joint swelling, Joint Tenderness, Leg Pain Skin: Denies: Rash, Wounds Neurological: Denies: Numbness, Tingling, Focal weakness Psychiatric: Reports: Anxiety, Depression. Denies: Homicidal Ideations, Suicidal Ideations Hematologic/ Lymphatic: Reports: Easy Bruising, Easy Bleeding VTE Information - Inpt Only VTE Present on Admission: No VTE Mechan Device Prophylaxis: SCD's VTE Pharm Prophylaxis ordered?: No Reason prophylaxis not ordered:: Medical Contraindication Subjective: Patient laying in the ED bed, fatigued appearance, notes pain improved to the right hip. Objective: Physical Examination: General: awake, alert, oriented x 3 and cooperative, laying in the ED bed, fatigued, notes improved discomfort of the right hip. Skin: normal color, turgor, no icterus, cyanosis, staged ecchymoses otherwise normal. HEENT: AT/NC, EOMI, PERRLA, mildly dry MM, no carotid bruits or JVD noted. Lungs: Diminished breath sounds, greater bases, moderate effort, no rales, ronchi or wheezing. Heart: Regular rate and rhythm; no gallop, rub audible. Abdomen: soft, thin habitus, NTTP, ND, normal BS, no HSM. Extremities: no cyanosis or clubbing, no edema, peripheral pulses intact, no specific deformity or shortening of right lower extremity. Neurological: patient awake, alert, oriented x 3; cognitive function intact; pupils equally reactive to light and accomodation; cranial nerves II-XII grossly normal, moving all 4 extremities with pain elicited to the right lower extremity with any movement, no focal deficits, strength severely global decrease secondary to acute presentation. Psychiatric: affect appears fatigued, mildly uncomfortable otherwise normal, no acute evidence of depressive or anxiety feelings. 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 1. General debility, right hip pain s/p mechanical fall w/ right femoral neck fracture: Plain film noting right femoral neck fracture. Orthopedic surgery consulted from ED. Will admit to MS, maintain NPO after midnight in case of operative intervention in a.m., pending CT of the hip per discussion with orthopedic surgery, continue gentle IVFs, obtain TSH, Mag level, UA, UCx, jenkins placement, monitor I/Os, frequent positioning, fall precautions, type and screen pending per ED, pain, anti-emetic regimen. PT/OT following operative intervention. CM consulted for discharge planning. Per NSQIP patient to risk average therefore will plan admission to medical surgical floor, EKG with sinus rhythm with no acute evidence of ischemia, rest x-ray with chronic changes, awaiting CT hip per discussion with Orthopedic surgery otherwise agree with progression to OR. 2. Hypokalemia: Admission K+ 3.2, magnesium level requested, supplementation given, repeat level in AM. 3. Nonobstructive CAD: We will temporarily hold patient aspirin, resume once cleared, continue statin, not on beta-dixie therapy possibly secondary to underlying COPD, continue VIKY inhibitor. 4. Hypertension: Continue home regimen including ramipril, isosorbide, PRN hydralazine. 5. Hyperlipidemia: Continue home statin regimen. 6. Anxiety and depression: We will continue patient home BuSpar and paroxetine regimen. 7. Chronic COPD: We will continue patient home Trelegy with as needed albuterol, encourage head of bed, I-S. Chest x-ray as noted above. 8. Chronic Kidney Disease Stage III: Admission BUN/Cr 25/1.08, baseline renal function 1.0-1.2, repeat BMP in AM. 9. Anemia, macrocytic: Prior labs noted 12 range, current admission 09/07/2020 with hemoglobin 11.3, MCV elevated, will obtain vitamin B12, folic acid, iron panel. 10. DVT prophylaxis: SCDs, defer chemoprophylaxis for planned a.m. OR potentially as noted. 11. CODE status: Patient DENISE is her daughter Piper Peña and living will is currently in place. Discussed CODE status at length including difference between FULL code, DNR-CCA and DNR-CC status. Following discussions about the differences in these status, requested Full Code. Advanced Care Planning Face to Face Time: 16 minutes. Inpatient E&M: 52197 Init Hosp L3 Procedures: 98785 Advncd Care Plan 30 Min
--- NOTE | 2020-09-07 20:24 | EKG12_ITS ---
Test Reason : DYSRYTHMIA Blood Pressure : / mmHG Vent. Rate : 073 BPM Atrial Rate : 073 BPM P-R Int : 150 ms QRS Dur : 088 ms QT Int : 376 ms P-R-T Axes : 070 056 040 degrees QTc Int : 414 ms Normal sinus rhythm Normal ECG Confirmed by ROSETTA VALERO, LEANA ([id number]), deputy editor in chief ARIADNE GOLD ([id number]) on 09/09/2020 8:51:06 AM Referred By: YAAKOV Confirmed By:LEANA SARGENT MD
--- NOTE | 2020-09-07 20:40 | RAD_ITS ---
HISTORY: pre op EXAM: XR Chest 1 View COMPARISON: October 18, 2018 FINDINGS: LINES/DEVICES: None. LUNGS: There are chronic interstitial changes. No pneumothorax. No consolidation or effusion. MEDIASTINUM AND CARDIOVASCULAR STRUCTURES: Cardiac silhouette not enlarged. Central airways and mediastinal contour are unremarkable. Athersclerotic plaque within the aortic arch. BONES AND SOFT TISSUES: Thoracic spondylosis. RAD/Chest 1 View (Portable) IMPRESSION: Chronic interestitial changes. No radiographic evidence of acute cardiopulmonary disease. at 2118 Reported and signed by: Aneesh Green MD Electronically Signed: Aneesh Green MD at 21:17 EST Tel , Service support ,
[2020-09-07 20:43] LABS: Hematocrit 34.3 % (37-47); Hemoglobin 11.3 g/dL (12.0-15.0); Mean Corp Hgb Conc 32.9 g/dL (32-36); Mean Corpuscular Hgb 33.4 pg (27.0-32.0); Mean Corpuscular Volume 101.5 fL (81-99); Mean Platelet Vol. 11.1 fl (6.2-12.0); Platelet Count 220 K/mm3 (150-450); RBC Distribution Width CV 12.9 % (11.6-14.6); RBC Distribution Width SD 47.5 fl (35.1-43.9); Red Blood Count 3.38 M/mm3 (4.2-5.4); White Blood Count 13.3 K/mm3 (4.4-11.0)
[2020-09-07 20:55] LABS: International Normalized Ratio 1.1; Prothrombin Time (Protime)PT. 13.7 SECONDS (11.7-14.9)
[2020-09-07 21:01] LABS: Anion Gap 4 (5-15); BUN 25 mg/dL (7-18); BUN/Creat Ratio 23.1 RATIO (10-20); Calcium,Total 9.6 mg/dL (8.5-10.1); Chloride 106 mmol/L (98-107); Creatinine, Serum 1.08 mg/dL (0.55-1.02); EST Glomerular Filtration Rate 52 mL/min (>60); Est Glom Filt Rate - Afr Amer 63 mL/min (>60); Estimated Creatinine Clearance 33.79 ml/min; Glucose 96 mg/dL (74-106); Potassium 3.2 mmol/L (3.5-5.1); Sodium Level 142 mmol/L (136-145)
[2020-09-07 21:44] VITALS: BP 158/77; PULSE 76; RESP 18; TEMP 36.1; O2SAT 89; O2SAT 94
--- NOTE | 2020-09-07 21:54 | CT_ITS ---
HISTORY: Fell one month ago. Hip pain. Comparison studies are an x-ray from 3 hours earlier, and an x-ray from August 22, 2020 Technique: Contiguous helical images were obtained from above the iliac crest to below the lesser trochanters. 2-D reformats. 512 images. Findings: A right subcapital humeral neck fracture is present. A right hip effusion is present. No expansile lesions are perceived. No soft tissue masses are demonstrated. No additional fractures are perceived. Facet arthropathy within the lower lumbar spine. The bladder is adequately distended. Bowel gas pattern is normal. No hydronephrosis to the left kidney. Severe atherosclerosis of the abdominal aorta. This atherosclerotic disease continues into the iliac arteries. The uterus remains. Diverticulosis within the descending and sigmoid colon. No ascites. No adenopathy. CT/Pelvis without IV Contrast IMPRESSION: Right subcapital femoral neck fracture with right hip effusion. No associated soft tissue masses or osseous erosions. Individualized dose optimization techniques were used for this CT. at 2235 Reported and signed by: Aneesh Green MD Electronically Signed: Aneesh Green MD at 22:34 EST Tel , Service support ,
--- NOTE | 2020-09-07 22:36 | ED.RN ---
PT'S DAUGHTER, CYDNEY, WAS UPDATED THROUGHOUT PT'S STAY IN THE E.D. AND GIVEN TO PHONE NUMBER TO [facility] FOR UPDATES.
[2020-09-07 23:07] VITALS: BMI 20.6
[2020-09-07 23:23] LABS: Magnesium 2.2 mg/dL (1.6-2.6)
[2020-09-07 23:33] VITALS: RESP 18; O2SAT 98
[2020-09-07 23:49] VITALS: BP 129/71; PULSE 70; RESP 16; TEMP 36.8; O2SAT 99
[2020-09-07 23:50] VITALS: PULSE 70
[2020-09-08] VITALS (28 sets, daily range): BP systolic 102–163; BP diastolic 49–84; PULSE 77–109; RESP 12–26; TEMP 36.3–37.1; O2SAT 45–99; BMI 20.6
--- NOTE | 2020-09-08 | HIP_PTH ---
PATIENT: ZAHIDA FRYE LOC: [facility] U#:[id number] AGE/SX: 79/F ROOM: [facility] RE09/07/[address]: Dr. Rakesh Sol DO : 1940 BED: 1 DIS: 09/09/2020 SPEC #: [id number] RECD: 09/09/20 08:00 STATUS: BABAK REQ #: [id number] RANDY: 09/08/20 00:[address]: Agusto Arreaga DEPT: SURGICAL PATHOLOGY RECD BY: Clarke Bernard ENTERED: 09/09/20 08:00 SP TYPE: TOTAL HIP OTHR DR: MD Dr. Nicci Shelton DO Dr. Mark Tereletsky, DO Dr. Steven Widmer, MD Tissues: Hip, NOS Procedures: Decalcification bone/plaque Surgery Specimen Level IV Comments: @ Ordering doctor for DEC edited from to @ oralia FARRELL at 09/09/20 1242 @ Ordering doctor for SUIV edited from to @ by JAMI at 09/09/20 1242 @ Submitting doctor edited from to @ by JAMI at 09/09/20 1242 HEADER OPERATION: Total right hip, anterior approach PRE-OP DIAGNOSIS: Total right hip fracture TISSUE SUBMITTED: Femoral head MICROSCOPIC DIAGNOSIS Right hip, total hip resection: Consistent with organizing fracture site. AM:dulce maria 09/12/2020 MICROSCOPIC DESCRIPTION Slides are reviewed. GROSS DESCRIPTION Received is one container labeled with the patient's name and designated right femoral head. The specimen consists of a femoral head measuring 4 x 4 x 4.5 cm. A piece of soft tissue is attached on the top of femoral head measuring 3.5 x 0.5 x 0.3 cm. The articular surface of the femoral head is smooth. Resection margin is irregular and hemorrhagic. Also present in the specimen container are detached pieces of bone including bone reaming measuring in aggregate 8 x 8 x 3 cm. Sulfonation Equipment Operator sections are submitted in three cassettes as follows: 1 - soft tissue, 2 - detached pieces of bone, 3 - femoral head. Cassettes 2 & 3 are submitted after decalcification. / SJ:dulce maria 09/09/20 TC:5 CPT: 89486, 80153
[2020-09-08] MEDS: 0.9% Normal Saline 1,000 ML 100 ML IV ×3 (00:07→13:13)
[2020-09-08 01:01] LABS: Mucous, Urine 0 SEEN /hpf (<or=2+); Red Blood Cells-Urine 0 SEEN /hpf (0-5); Squamous Epithelial Cells - UA 0 SEEN /hpf (5-10)
[2020-09-08 01:15] LABS: Color, Urine Yellow (Yellow); Glucose, Dipstick Normal (Normal); Ketone-Dipstick Negative (Negative); Leukocyte Esterase-Dipstick Negative /ul (Negative); Nitrite-Dipstick Negative (Negative); Occult Blood-Urine Negative /ul (Negative); Protein-Dipstick 15 mg/dl (Negative); Specific Gravity, Urine 1.015 (1.002-1.030); Urine Bilirubin Dipstick Negative (Negative); Urine Clarity Clear (Clear); Urine Urobilinogen Normal (Normal); Urine pH 6.5 (5.0 - 8.0)
[2020-09-08 01:30] LABS: Amorphous Sediment RARE; Bacteria 1+ /hpf (None Seen); Hyaline Cast 0-5 SEEN /lpf (0-5); White Blood Cells 0-5 SEEN /hpf (0-5)
[2020-09-08] MEDS: hydrALAZINE 20 MG/ML Vial 10 MG IV (05:30)
[2020-09-08 06:30] LABS: Absolute Lymphocyte Count 1.37 X10^3/uL (0.83-4.51); Absolute Neutrophil Count 6.6 X10^3/uL (2.0-7.7); Basophil# 0.06 X10^3/uL; Basophil% 0.7 % (0-1); Eosinophil# 0.24 X10^3/uL; Eosinophils% 2.6 % (0-5); Hemoglobin 10.8 g/dL (12.0-15.0); Lymphocyte # 1.37 X10^3/ul (4.0); Mean Corp Hgb Conc 32.7 g/dL (32-36); Mean Corpuscular Hgb 33.3 pg (27.0-32.0); Mean Corpuscular Volume 101.9 fL (81-99); Mean Platelet Vol. 11.4 fl (6.2-12.0); Monocyte# 0.81 X10^3/uL; Monocyte% 8.9 % (0-10); NRBC Flagged by Analyzer 0 % (0-5); Neutrophil # 6.62 X10^3/uL (2.7-7.7); Neutrophil % 72.4 % (47-70); Platelet Count 213 K/mm3 (150-450); RBC Distribution Width CV 12.8 % (11.6-14.6); RBC Distribution Width SD 47.6 fl (35.1-43.9); Red Blood Count 3.24 M/mm3 (4.2-5.4); White Blood Count 9.1 K/mm3 (4.4-11.0)
--- NOTE | 2020-09-08 06:55 | PCM.CONS.GEN ---
Problem List (1) Former tobacco use Status: Chronic (2) COPD (chronic obstructive pulmonary disease) Status: Chronic Qualifiers: COPD type: unspecified COPD Qualified Code(s): J44.9 - Chronic obstructive pulmonary disease, unspecified (3) Anxiety and depression Status: Chronic (4) Pure hypercholesterolemia Status: Chronic (5) Essential hypertension Status: Chronic (6) Atherosclerotic heart disease of [place] coronary artery without angina pectoris Status: Chronic Qualifiers: [place] vs. transplanted heart: [place] heart Qualified Code(s): I25.10 - Atherosclerotic heart disease of [place] coronary artery without angina pectoris Comment: 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 (7) CKD (chronic kidney disease) Status: Chronic Qualifiers: Chronic kidney disease stage: stage 3 (moderate) Reason for Consult Date of Consultation: 09/08/20 Reason for Consultation: Right hip pain. Requested by Dr. Rosas History of Present Illness: The patient is a 79 year old F with history of previous tobacco use and associated COPD anxiety and depression hypercholesterolemia, hypertension and atherosclerotic heart disease presents today after a fall. She also has history of chronic kidney disease stage III. Patient reports a mechanical fall when she tripped over her cat 4 weeks ago she presented to her PCP on August 22 with a normal-appearing x-ray was treated symptomatically. She continued to have ongoing hip pain continued she is worsening pain brought her to the emergency department last evening. She has continued difficulty with bearing weight. Pain is worse with ambulation. Better with immobilization. Rated at a 4 out of 10. Denies any associated numbness and tingling. Patient lives at home independently with her cat. She does not use a walker or cane prior to her fall. She does not report previous history of hip pain. 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 Nonrheumatic mitral valve regurgitation (Chronic) Medical History: Medical History (Last Reviewed 10/02/19 @ 10:51 by Brianna Muñoz) Pure hypercholesterolemia (Chronic) E78.00 Essential hypertension (Chronic) I10 Atherosclerotic heart disease of [place] coronary artery without angina pectoris (Chronic) I25.10 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 Nonrheumatic mitral valve regurgitation (Chronic) I34.0 Depression F32.9 COPD (chronic obstructive pulmonary disease) J44.9 Allergies cefaclor [From Ceclor] Allergy (Verified 09/07/20 17:37) Hives Home Medications: Ambulatory Orders Medication Instructions Recorded Aspirin [Aspir-Low] 81 mg PO DAILY 12/28/17 Atorvastatin Calcium 40 mg PO DAILY 12/28/17 Cranberry Fruit Extract [Cranberry] 500 mg PO DAILY 12/28/17 Isosorbide Mononitrate [Imdur] 30 mg PO DAILY 12/28/17 Multivitamin [Daily Multiple 1 tab PO DAILY 12/28/17 Vitamin] Paroxetine HCl [Paxil Cr] 37.5 mg PO DAILY 12/28/17 Ramipril [Altace] 10 mg PO DAILY 12/28/17 calcium carbonate 600 mg calcium 600 mg PO BID tab 12/30/17 (1,500 mg) tablet cholecalciferol (vitamin D3) 10 400 unit PO QDAY 12/30/17 mcg (400 unit) capsule lactobacillus combination no.8 3 3,000 mmu cells PO QDAY 12/30/17 billion cell capsule magnesium oxide 400 mg (241.3 mg 400 mg PO QDAY tab 12/30/17 magnesium) tablet omega-3 fatty acids 1,000 mg 1,000 mg PO QDAY 12/30/17 capsule buspirone 15 mg tablet 15 mg PO DAILY 30 Days #60 tab 09/22/18 Fluticasone/Umeclidin/Vilanter 1 puff INHALATION DAILY 09/07/20 [Trelegy Ellipta 100-62.5-25] Surgical History: Surgical History (Last Reviewed 10/02/19 @ 10:51 by Brianna Muñoz) History of cholecystectomy Z90.49 Surgical History: - - Cholecystectomy, tonsillectomy. Psychiatric History: Anxiety, Depression [employer] History: No pertinent [employer] history Lives: Alone Smoking Status: Former smoker Tobacco Use: Cigarettes Alcohol: Occasional Drugs: None - *Family History Maternal Family History: Family History (Last Reviewed 10/02/19 @ 10:51 by Brianna Muñoz) Father Myocardial infarction, Onset Age: 43 Brother Myocardial infarction, Onset Age: 52 Brother CAD (coronary artery disease) History Items: Cancer - Mother with history of pancreatic cancer. Paternal Family History: Family History (Last Reviewed 10/02/19 @ 10:51 by Brianna Muñoz) Father Myocardial infarction, Onset Age: 43 Brother Myocardial infarction, Onset Age: 52 Brother CAD (coronary artery disease) History Items: High Cholesterol, Heart Disease, Hypertension Review of Systems Constitutional: Denies: Chills, Fever, Weight Change HEENT: Denies: Head Aches, Sinus Congestion, Sinus Drainage Cardiovascular: Denies: Chest Pain, Palpitations Respiratory: Reports: Shortness of breath upon exertion - Chronic due to COPD. Denies: Cough, Shortness of breath at rest, Sputum production Gastrointestinal: Denies: Abdominal Pain, Nausea, Vomiting Genitourinary: Denies: Dysuria Musculoskeletal: Reports: Joint Pain, Joint Tenderness Skin: Denies: Rash, Wounds Neurological: Denies: Numbness, Tingling, Focal weakness Psychiatric: Denies: Anxiety, Depression, Homicidal Ideations, Suicidal Ideations Hematologic/ Lymphatic: Denies: Easy Bruising, Easy Bleeding Patient Problems: Active and Suspected Problems (Last Reviewed 10/02/19 @ 10:51 by Brianna Muñoz) Closed right hip fracture (Acute) Objective: X-rays from August 22 were reviewed. There does not appear to be significant evidence of a fracture. X-rays from last evening were also reviewed showing a displaced femoral neck fracture. There was a lucency in the femoral neck and with the history of the fracture I did want to rule out a pathologic fracture. CT scan was performed did not reveal any pathology in the femoral neck but there is a displaced femoral neck fracture. There is also associated arthrosis of the joint with severe joint space narrowing in the weightbearing surface and subchondral cyst. - Physical Exam Vitals/I&O's: Vital Signs Temp Pulse Resp BP Pulse Ox 98.3 F 79 16 134/59 H 99 09/08/20 05:23 09/08/20 05:47 09/08/20 05:23 09/08/20 05:47 09/08/20 05:23 Oxygen Flow Rate (L/min) 3 Oxygen Delivery Method Nasal Cannula Weight: 116 lb 6.465 oz Body Mass Index (BMI) 20.6 Intake and Output for Last 24 Hours 09/06/20 09/07/20 09/08/20 23:59 23:59 23:59 Output Total 550 / 550 Balance -550 / -550 General: Alert, Oriented x3, Cooperative HEENT: Atraumatic Neck: No JVD Lungs: - - Nonlabored breathing Cardiovascular: - - Regular pulse Abdomen: Non-Distended Extremities: - - Right lower extremity: Skin clean, dry, and intact. Limb is shortened and externally rotated Motor is intact dorsiflexion, EHL and plantar flexion. Sensation is intact to light touch saphenous, jorge,l superficial peroneal, deep peroneal and tibial distributions. Calves are soft and supple. Neurological: Cranial nerves II-XII grossly intact Psych/Mental Status: Normal Affect Microbiology Past 72 Hours 09/07/20 21:40 Mucosa - Nose SARS-CoV-2 Antigen (Rapid) - Final Laboratory Results 09/07/20 20:32: WBC 13.3 H, RBC 3.38 L, Hgb 11.3 L, Hct 34.3 L, MCV 101.5 H, MCH 33.4 H, MCHC 32.9, RDW Std Deviation 47.5 H, RDW Coeff of [place] 12.9, Plt Count 220, MPV 11.1 09/07/20 20:32: PT 13.7, INR 1.1 09/07/20 20:32: Sodium 142, Potassium 3.2 L, Chloride 106, Carbon Dioxide 32.0, Anion Gap 4 L, BUN 25 H, Creatinine 1.08 H, Estim Creat Clear Calc 33.79, Est GFR (MDRD) Af Amer 63, Est GFR (MDRD) Non-Af 52 L, BUN/Creatinine Ratio 23.1 H, Glucose 96, Calcium 9.6 09/07/20 20:32: Blood Type B POSITIVE, Antibody Screen NEGATIVE 09/07/20 20:32: Magnesium 2.2 09/08/20 00:50: Urine Color Yellow, Urine Clarity Clear, Urine pH 6.5, Ur Specific [place] 1.015, Urine Protein 15 H, Urine Glucose (UA) Normal, Urine Ketones Negative, Urine Occult Blood Negative, Urine Nitrite Negative, Urine Bilirubin Negative, Urine Urobilinogen Normal, Ur Leukocyte Esterase Negative, Urine RBC 0 SEEN, Urine WBC 0-5 SEEN, Ur Squamous Epith Cells 0 SEEN, Amorphous Sediment RARE, Urine Bacteria 1+, Hyaline Casts 0-5 SEEN, Urine Mucus 0 SEEN 09/08/20 05:37: WBC 9.1, RBC 3.24 L, Hgb 10.8 L, Hct 33.0 L, MCV 101.9 H, MCH 33.3 H, MCHC 32.7, RDW Std Deviation 47.6 H, RDW Coeff of [place] 12.8, Plt Count 213, MPV 11.4, Immature Gran % (Auto) 0.400, Neut % (Auto) 72.4 H, Lymph % (Auto) 15.0 L, [place] % (Auto) 8.9, Eos % (Auto) 2.6, Baso % (Auto) 0.7, Absolute Neuts (auto) 6.6, Absolute Lymphs (auto) 1.37, Nucleated RBC % 0 09/08/20 05:37: Sodium Pending, Potassium Pending, Chloride Pending, Carbon Dioxide Pending, Anion Gap Pending, BUN Pending, Creatinine Pending, Est GFR (MDRD) Af Amer Pending, Est GFR (MDRD) Non-Af Pending, BUN/Creatinine Ratio Pending, Glucose Pending, Calcium Pending, Iron Pending, TIBC Pending, Iron Saturation Pending, Ferritin Pending, Total Bilirubin Pending, AST Pending, ALT Pending, Alkaline Phosphatase Pending, Total Protein Pending, Albumin Pending, Folate Pending, TSH Pending 09/08/20 05:37: Vitamin B12 Pending Current Medications Acetaminophen (Acetaminophen 325 Mg Tablet) 650 mg PO Q6H PRN PRN PRN Reason: Pain Score 1-10/Temp > 100.7 F Al Hydroxide/Mg Hydroxide (Mag Hydrox/Al Hydrox/Simeth 30 Ml Udc) 30 ml PO Q6H PRN PRN PRN Reason: Gastric Burning Albuterol Sulfate (Albuterol 2.5 Mg/3 Ml Vial.Neb.) 2.5 mg INHALATION Q2H PRN PRN PRN Reason: Dyspnea, wheezing Albuterol/Ipratropium (Ipratropium/Albuterol Sulfate 3 Ml Ampul.Neb) 3 ml INHALATION Q6HWA.RT HAN Atorvastatin Calcium (Atorvastatin Calcium 40 Mg Tablet) 40 mg PO QHS HAN Budesonide (Budesonide Respules 0.5 Mg/2 Ml Ampul.Neb.) 0.5 mg INHALATION Q12H.RT [facility] Buspirone HCl (Buspirone 15 Mg Tablet) 15 mg PO DAILY [facility] Calcium Carbonate (Calcium (Elemental) 500 Mg Tablet) 500 mg PO DAILY [facility] Calcium Carbonate (Calcium Carbonate 500 Mg Tablet) [facility] Famotidine (Famotidine 20 Mg Tablet) 20 mg PO BID [facility] Last Admin: 09/08/20 01:08 Dose: Not Given Documented by: Guaifenesin (Guaifenesin 10 Ml Udc (200mg/10ml)) 20 ml PO Q4H PRN PRN PRN Reason: COUGH Hydralazine HCl (Hydralazine 20 Mg/Ml Vial) 10 mg IV Q4H PRN PRN PRN Reason: SBP > 160 Last Admin: 09/08/20 05:30 Dose: 10 mg Documented by: Sodium Chloride () 1,000 mls @ 100 mls/hr IV .Q10H [facility] Last Admin: 09/08/20 00:07 Dose: 100 mls/hr Documented by: Cefazolin Sodium 2 gm/ Sodium (Chloride) 110 mls @ 150 mls/hr IV X1 ONE Stop: 09/08/20 07:43 Isosorbide Mononitrate (Isosorbide Mononitrate 30 Mg Tablet) 30 mg PO DAILY [facility] Lactobacillus Acidophilus (Lactobacillus Acidophilus) 1 tablet PO BID [facility] Last Admin: 09/08/20 00:27 Dose: Not Given Documented by: Magnesium Chloride (Magnesium Chloride 64 Mg Delay Rel.Tablet) 128 mg PO DAILY [facility] Magnesium Hydroxide (Magnesium Hydroxide 30 Ml Udc) 30 ml PO DAILY PRN PRN PRN Reason: Constipation Melatonin (Melatonin 3 Mg Tablet) 3 mg PO QHS PRN PRN PRN Reason: INSOMNIA Morphine Sulfate (Morphine 2 Mg/Ml Syringe) 2 mg IV Q3H PRN PRN PRN Reason: Pain Score 6-10 Multivitamins (Multivitamins,Therapeutic Tablet) [facility] Nitroglycerin (Nitroglycerin (Inpatient Use) 0.4 Mg Tab.Subl) 0.4 mg SUBLINGUAL Q5M PRN PRN Reason: CARDIAC/CHEST PAIN Ondansetron HCl (Ondansetron 4 Mg/2 Ml Vial) 4 mg IV Q8H PRN PRN PRN Reason: NAUSEA/VOMITING Oxycodone HCl (Oxycodone 5 Mg Tablet) 5 mg PO Q4H PRN PRN PRN Reason: Pain Score 4-5 Paroxetine HCl (Paroxetine Cr 12.5 Mg Tablet) 37.5 mg PO DAILY [facility] Prochlorperazine Edisylate (Prochlorperazine 10 Mg/2 Ml Vial) 5 mg IV Q4H PRN PRN PRN Reason: Breakthrough nausea/vomiting Psyllium Hydrophilic Mucilloid (Psyllium 1 Packet) 1 packet PO DAILY PRN PRN PRN Reason: Constipation Ramipril (Ramipril 10 Mg Capsule) 10 mg PO DAILY [facility] Senna/Docusate Sodium (Senna/Docusate Sodium 1 Tablet) 2 tablet PO BID PRN PRN PRN Reason: Constipation Sodium Chloride (0.9% Saline Lock 10 Ml Syringe) 10 - 40 ml IV UD PRN PRN Reason: SALINE FLUSH Throat Lozenges (Benzocaine/Menthol 1 Lozenge) 1 lozenge MUCOUS MEM Q2H PRN PRN PRN Reason: SORE THROAT Assessment/Plan All Active Problems (Last Reviewed 10/02/19 @ 10:51 by Brianna Muñoz) Closed right hip fracture (Acute) Patient has multiple medical comorbidities including chronic kidney disease, COPD, hypertension hyperlipidemia and depression and anxiety as well as atherosclerotic heart disease. Chronically she has evidence of right hip osteoarthritis, acutely she has a displaced right femoral neck fracture without evidence of pathologic fracture. Certainly this is a fragility fracture. Natural history of the disease process and treatment options were discussed the patient including close reduction percutaneous pinning, right hip hemiarthroplasty and right total hip replacement. Based on patient's health activity level and concurrent osteoarthritis of the hip we have elected to proceed with a right total hip replacement. Risks benefits of the procedure were discussed the patient including but not limited to blood loss, DVTs, PEs, nervous damage, infection, the risk of anesthesia, dislocations and leg length discrepancies. Patient demonstrates an understanding and does wish to proceed. Antibiotics ordered on-call to the operating room. Patient is currently n.p.o. We plan to proceed with surgery this morning. KHUSHI FreedmanAmb[facility] Office:
[2020-09-08] MEDS: Ipratropium/Albuterol Sulfate 3 ML AMPUL.NEB INHALATION ×2 (07:22→12:08)
[2020-09-08] MEDS: Budesonide Respules 0.5 MG/2 ML AMPUL.NEB. INHALATION (07:22)
--- NOTE | 2020-09-08 07:35 | PCM.PN.HOSP ---
Patient Problems: Active and Suspected Problems (Last Reviewed 10/02/19 @ 10:51 by Brianna Muñoz) Closed right hip fracture (Acute) Reason for Visit: Follow-up for right hip fracture. Objective: Seen and examined. Patient complained of pain over right hip joint. Had a fall yesterday when she stepped back, lost her control/balance and fell down. Heart rate and blood pressure are normal. Twelve-lead EKG reviewed normal sinus rhythm at [address] Lara for history of atherosclerotic heart disease moderate in nature. Physical exam General: Alert, Oriented x3, Cooperative HEENT: Atraumatic, PERRLA, EOMI, Normocephalic Oral: No Gingival or Mucosal Lesions/ Ulcerations Neck: Supple, No JVD, Negative Carotid Bruits Lungs: Air entry diminished in bilateral lung bases. No crepitation/rhonchi. No tachypnea or hypoxia Cardiovascular: Regular rate, Regular Rhythm, Normal S1, Normal S2, No murmurs Abdomen: Bowel Sounds Present, Soft, Non Tender, Non-Distended : No renal angle tenderness. No suprapubic tenderness. Extremities: Tenderness over right groin/hip joint. Right lower extremity is externally rotated. no edema, Capillary Refill Less than 3 Seconds Skin: No rashes, No breakdown Musculoskeletal: No Tenderness to Palpation of other joints or Extremities Neurological: Cranial nerves II-XII grossly intact, Deep Tendon Reflexes 2+/4 and Symmetrical, Neuro grossly intact Psych/Mental Status: Normal Affect, Appropriate. Vitals/I&O's: Vital Signs Temp Pulse Resp BP Pulse Ox 98.3 F 77 20 H 134/59 H 96 09/08/20 05:23 09/08/20 07:23 09/08/20 07:23 09/08/20 05:47 09/08/20 07:21 Oxygen Flow Rate (L/min) 3 Oxygen Delivery Method Nasal Cannula Weight: 116 lb 6.465 oz Body Mass Index (BMI) 20.6 Intake and Output for Last 24 Hours 09/06/20 09/07/20 09/08/20 23:59 23:59 23:59 Output Total 550 / 550 Balance -550 / -550 Microbiology Past 72 Hours 09/07/20 21:40 Mucosa - Nose SARS-CoV-2 Antigen (Rapid) - Final Laboratory Results 09/07/20 20:32: WBC 13.3 H, RBC 3.38 L, Hgb 11.3 L, Hct 34.3 L, MCV 101.5 H, MCH 33.4 H, MCHC 32.9, RDW Std Deviation 47.5 H, RDW Coeff of Linette 12.9, Plt Count 220, MPV 11.1 09/07/20 20:32: PT 13.7, INR 1.1 09/07/20 20:32: Sodium 142, Potassium 3.2 L, Chloride 106, Carbon Dioxide 32.0, Anion Gap 4 L, BUN 25 H, Creatinine 1.08 H, Estim Creat Clear Calc 33.79, Est GFR (MDRD) Af Amer 63, Est GFR (MDRD) Non-Af 52 L, BUN/Creatinine Ratio 23.1 H, Glucose 96, Calcium 9.6 09/07/20 20:32: Blood Type B POSITIVE, Antibody Screen NEGATIVE 09/07/20 20:32: Magnesium 2.2 09/08/20 00:50: Urine Color Yellow, Urine Clarity Clear, Urine pH 6.5, Ur Specific [place] 1.015, Urine Protein 15 H, Urine Glucose (UA) Normal, Urine Ketones Negative, Urine Occult Blood Negative, Urine Nitrite Negative, Urine Bilirubin Negative, Urine Urobilinogen Normal, Ur Leukocyte Esterase Negative, Urine RBC 0 SEEN, Urine WBC 0-5 SEEN, Ur Squamous Epith Cells 0 SEEN, Amorphous Sediment RARE, Urine Bacteria 1+, Hyaline Casts 0-5 SEEN, Urine Mucus 0 SEEN 09/08/20 05:37: WBC 9.1, RBC 3.24 L, Hgb 10.8 L, Hct 33.0 L, MCV 101.9 H, MCH 33.3 H, MCHC 32.7, RDW Std Deviation 47.6 H, RDW Coeff of Linette 12.8, Plt Count 213, MPV 11.4, Immature Gran % (Auto) 0.400, Neut % (Auto) 72.4 H, Lymph % (Auto) 15.0 L, [place] % (Auto) 8.9, Eos % (Auto) 2.6, Baso % (Auto) 0.7, Absolute Neuts (auto) 6.6, Absolute Lymphs (auto) 1.37, Nucleated RBC % 0 09/08/20 05:37: Sodium Pending, Potassium Pending, Chloride Pending, Carbon Dioxide Pending, Anion Gap Pending, BUN Pending, Creatinine Pending, Est GFR (MDRD) Af Amer Pending, Est GFR (MDRD) Non-Af Pending, BUN/Creatinine Ratio Pending, Glucose Pending, Calcium Pending, Iron Pending, TIBC Pending, Iron Saturation Pending, Ferritin Pending, Total Bilirubin Pending, AST Pending, ALT Pending, Alkaline Phosphatase Pending, Total Protein Pending, Albumin Pending, Folate Pending, TSH Pending 09/08/20 05:37: Vitamin B12 Pending Current Medications Acetaminophen (Acetaminophen 325 Mg Tablet) 650 mg PO Q6H PRN PRN PRN Reason: Pain Score 1-10/Temp > 100.7 F Al Hydroxide/Mg Hydroxide (Mag Hydrox/Al Hydrox/Simeth 30 Ml Udc) 30 ml PO Q6H PRN PRN PRN Reason: Gastric Burning Albuterol Sulfate (Albuterol 2.5 Mg/3 Ml Vial.Neb.) 2.5 mg INHALATION Q2H PRN PRN PRN Reason: Dyspnea, wheezing Albuterol/Ipratropium (Ipratropium/Albuterol Sulfate 3 Ml Ampul.Neb) 3 ml INHALATION Q6HWA.RT [facility] Last Admin: 09/08/20 07:22 Dose: 3 ml Documented by: Atorvastatin Calcium (Atorvastatin Calcium 40 Mg Tablet) 40 mg PO QHS [facility] Budesonide (Budesonide Respules 0.5 Mg/2 Ml Ampul.Neb.) 0.5 mg INHALATION Q12H.RT [facility] Last Admin: 09/08/20 07:22 Dose: 0.5 mg Documented by: Buspirone HCl (Buspirone 15 Mg Tablet) 15 mg PO DAILY [facility] Calcium Carbonate (Calcium (Elemental) 500 Mg Tablet) 500 mg PO DAILY [facility] Calcium Carbonate (Calcium Carbonate 500 Mg Tablet) 600 [facility] Famotidine (Famotidine 20 Mg Tablet) 20 mg PO BID [facility] Last Admin: 09/08/20 01:08 Dose: Not Given Documented by: Guaifenesin (Guaifenesin 10 Ml Udc (200mg/10ml)) 20 ml PO Q4H PRN PRN PRN Reason: COUGH Hydralazine HCl (Hydralazine 20 Mg/Ml Vial) 10 mg IV Q4H PRN PRN PRN Reason: SBP > 160 Last Admin: 09/08/20 05:30 Dose: 10 mg Documented by: Sodium Chloride () 1,000 mls @ 100 mls/hr IV .Q10H HAN Last Admin: 09/08/20 00:07 Dose: 100 mls/hr Documented by: Cefazolin Sodium 2 gm/ Sodium (Chloride) 110 mls @ 150 mls/hr IV X1 ONE Stop: 09/08/20 07:43 Isosorbide Mononitrate (Isosorbide Mononitrate 30 Mg Tablet) 30 mg PO DAILY [facility] Lactobacillus Acidophilus (Lactobacillus Acidophilus) 1 tablet PO BID [facility] Last Admin: 09/08/20 00:27 Dose: Not Given Documented by: Magnesium Chloride (Magnesium Chloride 64 Mg Delay Rel.Tablet) 128 mg PO DAILY [facility] Magnesium Hydroxide (Magnesium Hydroxide 30 Ml Udc) 30 ml PO DAILY PRN PRN PRN Reason: Constipation Melatonin (Melatonin 3 Mg Tablet) 3 mg PO QHS PRN PRN PRN Reason: INSOMNIA Morphine Sulfate (Morphine 2 Mg/Ml Syringe) 2 mg IV Q3H PRN PRN PRN Reason: Pain Score 6-10 Multivitamins (Multivitamins,Therapeutic Tablet) 1 tablet [facility] Nitroglycerin (Nitroglycerin (Inpatient Use) 0.4 Mg Tab.Subl) 0.4 mg SUBLINGUAL Q5M PRN PRN Reason: CARDIAC/CHEST PAIN Ondansetron HCl (Ondansetron 4 Mg/2 Ml Vial) 4 mg IV Q8H PRN PRN PRN Reason: NAUSEA/VOMITING Oxycodone HCl (Oxycodone 5 Mg Tablet) 5 mg PO Q4H PRN PRN PRN Reason: Pain Score 4-5 Paroxetine HCl (Paroxetine Cr 12.5 Mg Tablet) 37.5 mg PO DAILY [facility] Prochlorperazine Edisylate (Prochlorperazine 10 Mg/2 Ml Vial) 5 mg IV Q4H PRN PRN PRN Reason: Breakthrough nausea/vomiting Psyllium Hydrophilic Mucilloid (Psyllium 1 Packet) 1 packet PO DAILY PRN PRN PRN Reason: Constipation Ramipril (Ramipril 10 Mg Capsule) 10 mg PO DAILY [facility] Senna/Docusate Sodium (Senna/Docusate Sodium 1 Tablet) 2 tablet PO BID PRN PRN PRN Reason: Constipation Sodium Chloride (0.9% Saline Lock 10 Ml Syringe) 10 - 40 ml IV UD PRN PRN Reason: SALINE FLUSH Throat Lozenges (Benzocaine/Menthol 1 Lozenge) 1 lozenge MUCOUS MEM Q2H PRN PRN PRN Reason: SORE THROAT STROKE Vital Signs/Narrative: Vital Signs Temp Pulse Resp BP BP Pulse Ox 09/08/20 07:23 77 20 H 09/08/20 07:21 96 09/08/20 05:47 79 134/59 H 09/08/20 05:30 82 163/84 H 09/08/20 05:23 98.3 F 82 16 163/84 H 99 Medical Necessity - Tobacco Use Smoking Status: Former smoker Tobacco Use: Cigarettes Assessment/Plan All Active Problems (Last Reviewed 10/02/19 @ 10:51 by Brianna Muñoz) Closed right hip fracture (Acute) The patient is a 79 y/o F WITH HISTORY OF CKD stage III, Nonobstructive CAD, COPD, who presents to the [facility] ED on 09/07/20 with history of mechanical fall approximately 4 weeks prior to current presentation, excellently stepping backwards onto her cat with immediate fall onto her right hip with ongoing pain. 1. Debility secondary to right subcapital right femoral neck fracture with right hip effusion, traumatic fracture: Patient had right hip pelvis x-ray followed by pelvis CT which showed the above findings. No associated soft tissue mass or osseous erosion. Patient was seen by orthopedic surgeon Dr. Arreaga and taken for OR today. NSQIP calculated risk assessment found to be average. Twelve-lead EKG shows sinus rhythm with QTC 440 ms. Chest x-ray shows chronic interstitial changes but no acute cardiopulmonary disease. TSH normal. Folate high. Magnesium 2.2. BUN/creatinine 19/0.96. UA negative for pyuria or hematuria. Urine culture is pending. Patient has Cardona catheter 2. Hypokalemia: Potassium replaced. Repeat potassium 3.8. Magnesium level normal. 3. Nonobstructive mild triple-vessel CAD: Patient had cardiac cath, RHC, LHC in October 2018. Triple-vessel coronary artery disease of LAD, left circumflex mild and diagonal 1 eccentric 25%. Elevated LVEDP. Right heart pressure normal. continue statin, not on beta-dixie therapy possibly secondary to underlying COPD, continue VIKY inhibitor. 4. Hypertension: Continue home regimen including ramipril, isosorbide, PRN hydralazine. 5. Hyperlipidemia: Continue home statin regimen. 6. Anxiety and depression: \continue patient home BuSpar and paroxetine regimen. 7. COPD: continue patient home Trelegy with as needed albuterol. Incentive spirometry. 8. Chronic Kidney Disease Stage III: Admission BUN/Cr 25/1.08, baseline renal function 1.0-1.2, repeat BUN/creatinine 19/0.96 9. Tonic anemia, macrocytic: MCV is elevated 802. MCH 33. Folic acid high. Vitamin B12 pending. 10. DVT prophylaxis: SCDs, defer chemoprophylaxis for planned a.m. OR potentially as noted. 11. CODE status: Full code. Discussed with the patient's daughter near the bedside. Clinical Impression(s) from Imaging Studies Hip/Pelvis X-Ray 09/07/20 18:36 IMPRESSION: Right femoral neck fracture (new). Chest X-Ray 09/07/20 20:40 IMPRESSION: Chronic interestitial changes. No radiographic evidence of acute cardiopulmonary disease. Pelvis CT 09/07/20 21:54 IMPRESSION: Right subcapital femoral neck fracture with right hip effusion. No associated soft tissue masses or osseous erosions. Individualized dose optimization techniques were used for this CT. Inpatient E&M: 70036 [facility] Hosp L2
[2020-09-08] MEDS: Morphine 2 MG/ML Syringe IV (07:49)
[2020-09-08 08:14] LABS: ALB/GLOB Ratio 0.9 RATIO (0.9-2.4); AST(SGOT) 17 U/L (15-37); Alanine Aminotransfer ALT/SGPT 16 U/L (13-56); Albumin, Serum 2.9 g/dL (3.2-5.0); Alkaline Phosphatase 78 U/L (45-117); Anion Gap 4 (5-15); BUN 19 mg/dL (7-18); BUN/Creat Ratio 19.9 RATIO (10-20); Calcium,Total 8.4 mg/dL (8.5-10.1); Chloride 112 mmol/L (98-107); Creatinine, Serum 0.96 mg/dL (0.55-1.02); EST Glomerular Filtration Rate 60 mL/min (>60); Est Glom Filt Rate - Afr Amer 72 mL/min (>60); Estimated Creatinine Clearance 38.02 ml/min; Ferritin 153 ng/mL (8-252); Globulin 3.4 g/dL (2.2-4.2); Glucose 83 mg/dL (74-106); Iron 40 ug/dL (50-170); Iron Binding Capacity,Total 255 ug/dL (250-450); PERCENT IRON SATURATION 15.7 % (15.0-55.0); Potassium 3.8 mmol/L (3.5-5.1); Protein, Total 6.3 g/dL (6.4-8.2); Sodium Level 144 mmol/L (136-145)
--- NOTE | 2020-09-08 09:30 | RAD_ITS ---
STUDY: X-RAY - PELVIS AND RIGHT HIP REASON FOR EXAM: Female, 79 years old. RIGHT HIP REPLACEMENT D/T FRACTURE TECHNIQUE: 2 views of the pelvis and hip. Dose area product: 0.02 mGycm2 COMPARISON: Yesterday FINDINGS: Right hip replacement is in radiographic alignment. No periimplant fracture. RAD/Hip Min 2 Views (Portable) IMPRESSION: Fluoroscopic guidance for right hip replacement Electronically Signed: Gonzalo Strauss MD ([place]) at 14:00 EST , Service support ,
[2020-09-08] MEDS: Cefazolin 2 GM in 0.9% Normal Saline 100 ML IV (09:47)
--- NOTE | 2020-09-08 10:53 | NURSING ---
Patient off floor in surgery.
--- NOTE | 2020-09-08 10:55 | PCM.OPRPT ---
Problem List (1) Former tobacco use Status: Chronic (2) COPD (chronic obstructive pulmonary disease) Status: Chronic Qualifiers: COPD type: unspecified COPD Qualified Code(s): J44.9 - Chronic obstructive pulmonary disease, unspecified (3) Anxiety and depression Status: Chronic (4) Pure hypercholesterolemia Status: Chronic (5) Essential hypertension Status: Chronic (6) Atherosclerotic heart disease of [place] coronary artery without angina pectoris Status: Chronic Qualifiers: [place] vs. 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 Right hip primary osteoarthritis. 2. Right hip subcapital femoral neck fracture Post-Operative Diagnosis: 1. Right hip primary osteoarthritis. 2. Right hip subcapital femoral neck fracture Surgery/Procedure Performed:: Right direct anterior total hip replacement Description of Surgical Findings:: Stable hip with equal leg lengths. Acetabulum was inspected to have sclerotic bone with minimal residual cartilage. supervisor of guidance and testing: Yunior Siegel Type of Anesthesia:: General Anesthesiologist: Jean-Paul Henderson Special Medications: 2 g Ancef, joint cocktail (5 mg Duramorph, 30 mL of 0.5% Ropivicaine, 1000 units of epinephrine, 30 mg of Toradol) Specimen's removed: Femoral head and neck cut Estimated Blood Loss (mL): 400 Fluids Replaced: 700 mL crystalloid Description of Procedure: Components used: 1. [place] femoral stem size 3, 37.5 2. [place] trident 2 acetabular shell size 50 mm 3. [place] X3 polyethylene D 4. Jhonny Biolox delta 36mm, 0mm femoral head Brief history operative indications: 79 yo F who sustained a subcapital femoral neck fracture. X-rays were consistent with osteoarthritis including joint space narrowing, osteophyte formation and subchondral cysts as well as a displaced subcapital femoral neck fracture. Total hip replacement was discussed with the patient with risks and benefits including but not limited to blood loss, DVTs, PEs, neurovascular damage, dislocation, general risks of anesthesia including loss of life. Patient demonstrated an understanding medical clearance is obtained the patient was consented for surgery. Procedure: On the date of procedure the patient's R hip was marked in the preoperative area. Patient was then taken back to the operating room where anesthesia assumed control of the C-spine and airway and administered anesthetic. Patient was transferred to the operating table and placed in the supine position. The hips were placed at the break of the bed and a sacral bump was placed. The R lower extremity was then prepped out in a sterile fashion using chlorhexidine while the surgeon scrubbed. The PA was vital in the positioning of the patient. Upon reentering the room the R lower extremity was draped in the standard orthopedic fashion and the incision was marked. A timeout was called and everyone agreed upon the side, the site, the procedure be performed, antibody given, and patient's identity. At this time incision was made through skin, subcutaneous tissue, and fat down to fascia. The fascia was then incised and the TFL was retracted laterally. A retractor was placed on the lateral border of the femoral neck. Attention was directed to the inferior portion of the approach and all crossing vessels were identified and appropriately coagulated. A retractor was then placed on the medial portion of the femoral neck. The anterior capsule was then cleared of all soft tissue and then H shaped capsulotomy was made. The retractors were then placed inside the capsule. The femoral neck was identified and a cleanup cut was made. At this time a power corkscrew was used to remove the femoral head. Attention was then turned toward the acetabulum where the soft tissues were appropriately retracted and the acetabulum was sequentially reamed to 50 mm. A 50 mm cup was then selected and impacted into place. Acetabular liner was impacted into place and locking mechanism was verified. The position of the acetabular cup was then verified under live fluoroscopy. Attention was then turned to the femur. Soft tissue releases on the medial and lateral femoral neck were appropriately done, the leg was externally rotated and lateralized. A Avila retractor was placed medially and proximally to the greater trochanter this allowed appropriate visualization and exposure of the femoral canal. [place] was then used to remove excess lateral bone. A canal finder and entry broach were used to open the proximal canal. Once we verified we were down the femoral canal we subsequently broached up to a size 3, 37.5 [place] femur. The appropriate neck was placed in the previously selected head was trialed with a 0 mm neck. Traction was pulled and the hip was reduced with internal rotation. Once it was appropriately reduced and stability was checked. There was minimal shuck, equal leg lengths and appropriate stability with hyperextension and external rotation as well as with 90? flexion and internal rotation. Fluoroscopy was then also used to verify the position of the components and leg lengths using the contralateral side for comparison. The trial components were then dislocated the proximal femur was again exposed and the components were removed from the wound. The final components were verified and opened. The wound was copiously irrigated out with normal saline and the canal was prepped for cement. At this time the canal was pressurized after placing the cement restrictor. The stem was impacted into place. Once the cemented cured we again trialed a +0 and had appropriate leg lengths and offset based on x-rays as well as stability. The acetabulum was checked for any residual debris. The final components were placed and impacted. Traction and internal rotation were again used to reduce the hip. After adequate reduction the hip remained stable with appropriate leg lengths. The final components were once again checked with live fluoroscopy and were found to be satisfactory. The wound was then copiously irrigated with normal saline once more, and hemostasis was obtained. Closure was then done using #1 Vicryl runner to close the fascia. A 2-0 vicryl interuppted sutures were used to close the subcutaneous skin. A 3-0 Monocryl and Steri-Strips were used for final skin closure. A Silverlon dressing was placed. Patient was awakened by anesthesia and transferred to the [facility]. Patient was then transferred to the PACU for recovery. Postoperative plan: Patient will get 24 hours postop antibiotics. Patient will get in-house physical therapy and will be weight-bear as tolerated. Patient will follow up in office in 2 weeks for a wound check and x-rays. Aspirin 81 mg twice daily for 4 weeks. - Complications No intraoperative complications - Admit VTE Documentation VTE Present on Admission: No VTE Mechan Device Prophylaxis: SCD's, Thigh High FRAN Hose VTE Pharm Prophylaxis ordered?: Yes
--- NOTE | 2020-09-08 11:05 | RAD_ITS ---
STUDY: X-RAY - PELVIS AND RIGHT HIP REASON FOR EXAM: Female, 79 years old. POST OP HIP REPLACEMENT TECHNIQUE: 2 views of the pelvis and hip. COMPARISON: None. FINDINGS: There is a non-specific bowel gas pattern. Normal visualized soft tissue structures. Normal bilateral iliac wings, sacroiliac joints and visualized sacrum. Normal bilateral superior and inferior pubic rami. Normal pubic symphysis. Normal bilateral ischial tuberosities. Right hip replacement is in radiographic alignment with expected soft tissue swelling/air given recent surgery. RAD/Hip Min 2 Views (Portable) IMPRESSION: Right hip replacement in radiographic alignment. Electronically Signed: Gonzalo Strauss MD ([place]) at 14:04 EST , Service support ,
--- NOTE | 2020-09-08 14:25 | NURSING ---
Report given to PCU nurse about patient at this time. Was informed she will be going to room 103. Belongings sent.
--- NOTE | 2020-09-08 15:22 | CPS ---
TX given to patient in Pacu
[2020-09-08] MEDS: busPIRone 15 MG TABLET PO (16:37)
[2020-09-08] MEDS: Calcium (Elemental) 500 MG Tablet PO (16:38)
[2020-09-08] MEDS: PARoxetine CR 12.5 MG Tablet 37.5 MG PO (16:38)
[2020-09-08] MEDS: Magnesium Chloride 64 MG Delay Rel.Tablet 128 MG PO (16:38)
[2020-09-08] MEDS: Isosorbide Mononitrate 30 MG Tablet PO (16:38)
[2020-09-08] MEDS: Acetaminophen 500 MG Tablet 1000 MG PO ×2 (16:41→22:45)
[2020-09-08] MEDS: Lactated Ringers 1,000 ML 100 ML IV (16:44)
[2020-09-08] MEDS: Calcium Carbonate 500 MG Tablet 600 MG PO (19:05)
[2020-09-08] MEDS: Aspirin 81 MG TAB.CHEW PO (19:06)
[2020-09-08] MEDS: 0.9% Saline Lock 10 ML Syringe IV (19:07)
[2020-09-08 20:30] LABS: Hematocrit 29.5 % (37-47); Hemoglobin 9.4 g/dL (12.0-15.0)
[2020-09-08] MEDS: Cefazolin 1 GM/50 ML BAG IV (21:21)
[2020-09-08] MEDS: Atorvastatin Calcium 40 MG Tablet PO (21:27)
[2020-09-08] MEDS: Famotidine 20 MG Tablet PO (21:28)
[2020-09-09] VITALS (9 sets, daily range): BP systolic 97–118; BP diastolic 46–55; PULSE 80–92; RESP 12–18; TEMP 36.3–36.7; O2SAT 92–100
[2020-09-09] MEDS: Cefazolin 1 GM/50 ML BAG IV (03:10)
[2020-09-09 05:33] LABS: Hematocrit 26.1 % (37-47); Hemoglobin 8.3 g/dL (12.0-15.0); Mean Corp Hgb Conc 31.8 g/dL (32-36); Mean Corpuscular Hgb 33.7 pg (27.0-32.0); Mean Corpuscular Volume 106.1 fL (81-99); Mean Platelet Vol. 10.7 fl (6.2-12.0); Platelet Count 169 K/mm3 (150-450); RBC Distribution Width CV 13.2 % (11.6-14.6); RBC Distribution Width SD 51.2 fl (35.1-43.9); Red Blood Count 2.46 M/mm3 (4.2-5.4); White Blood Count 13.8 K/mm3 (4.4-11.0)
[2020-09-09] MEDS: Acetaminophen 500 MG Tablet 1000 MG PO ×2 (05:33→13:48)
[2020-09-09 05:54] LABS: Anion Gap 6 (5-15); BUN 25 mg/dL (7-18); BUN/Creat Ratio 20.5 RATIO (10-20); Calcium,Total 8.1 mg/dL (8.5-10.1); Chloride 107 mmol/L (98-107); Creatinine, Serum 1.22 mg/dL (0.55-1.02); EST Glomerular Filtration Rate 45 mL/min (>60); Est Glom Filt Rate - Afr Amer 54 mL/min (>60); Estimated Creatinine Clearance 29.92 ml/min; Glucose 104 mg/dL (74-106); Potassium 3.8 mmol/L (3.5-5.1); Sodium Level 138 mmol/L (136-145)
--- NOTE | 2020-09-09 07:01 | PCM.PN.ORT ---
Patient Problems: Active and Suspected Problems (Last Reviewed 10/02/19 @ 10:51 by Brianna Muñoz) Closed right hip fracture (Acute) Subjective: The patient was sitting in bed upon examination. Patient denies any chest pain, shortness of breath, dizziness, lightheadedness, nausea or vomiting, or calf pain. Pain is controlled on medications. No adverse overnight events. Patient states her right hip feels better today than prior to surgery. Objective: Patient has had some hypotension and afebrile. Currently using 5 L nasal O2 Patient is able to plantarflex and dorsiflex actively. Sensation is intact to light touch to saphenous, sural, superficial and deep peroneal, and tibial distribution. Dressing is clean dry and intact. Negative Homans bilaterally, negative signs and symptoms of DVT. - Physical Exam Vitals/I&O's: Vital Signs Temp Pulse Resp BP Pulse Ox 97.7 F L 80 16 103/48 L 96 09/09/20 05:30 09/09/20 05:30 09/09/20 05:30 09/09/20 05:30 09/09/20 05:30 Oxygen Flow Rate (L/min) 4 Oxygen Delivery Method Nasal Cannula Weight: 52.8 kg Body Mass Index (BMI) 20.6 Intake and Output for Last 24 Hours 09/07/20 09/08/20 09/09/20 23:59 23:59 23:59 Intake Total 3950.00 / 3950.00 838.33 / 838.33 Output Total 2450 / 2450 75 / 75 Balance 1500.00 / 1500.00 763.33 / 763.33 General: Alert, Oriented x3, Cooperative, No apparent distress Microbiology Past 72 Hours 09/07/20 21:40 Mucosa - Nose SARS-CoV-2 Antigen (Rapid) - Final Laboratory Results 09/08/20 05:37: Sodium 144, Potassium 3.8, Chloride 112 H, Carbon Dioxide 28.0, Anion Gap 4 L, BUN 19 H, Creatinine 0.96, Estim Creat Clear Calc 38.02, Est GFR (MDRD) Af Amer 72, Est GFR (MDRD) Non-Af 60, BUN/Creatinine Ratio 19.9, Glucose 83, Calcium 8.4 L, Iron 40 L, TIBC 255, Iron Saturation 15.7, Ferritin 153, Total Bilirubin 0.60, AST 17, ALT 16, Alkaline Phosphatase 78, Total Protein 6.3 L, Albumin 2.9 L, Globulin 3.4, Albumin/Globulin Ratio 0.9, Folate 57.50 H, TSH 2.70 09/08/20 20:22: Hgb 9.4 L, Hct 29.5 L 09/09/20 05:23: WBC 13.8 H, RBC 2.46 L, Hgb 8.3 L, Hct 26.1 L, MCV 106.1 H, MCH 33.7 H, MCHC 31.8 L, RDW Std Deviation 51.2 H, RDW Coeff of Linette 13.2, Plt Count 169, MPV 10.7 09/09/20 05:23: Sodium 138, Potassium 3.8, Chloride 107, Carbon Dioxide 25.0, Anion Gap 6, BUN 25 H, Creatinine 1.22 H, Estim Creat Clear Calc 29.92, Est GFR (MDRD) Af Amer 54 L, Est GFR (MDRD) Non-Af 45 L, BUN/Creatinine Ratio 20.5 H, Glucose 104, Calcium 8.1 L 09/09/20 05:23: Vitamin D 25-Hydroxy Pending Current Medications Acetaminophen (Acetaminophen 500 Mg Tablet) 1,000 mg PO Q8 [facility] Last Admin: 09/09/20 05:33 Dose: 1,000 mg Documented by: Al Hydroxide/Mg Hydroxide (Mag Hydrox/Al Hydrox/Simeth 30 Ml Udc) 30 ml PO Q6H PRN PRN PRN Reason: Gastric Burning Albuterol Sulfate (Albuterol 2.5 Mg/3 Ml Vial.Neb.) 2.5 mg INHALATION Q2H PRN PRN PRN Reason: Dyspnea, wheezing Aspirin (Aspirin 81 Mg Tab.Chew) 81 mg PO BIDCM [facility] Last Admin: 09/08/20 19:06 Dose: 81 mg Documented by: Atorvastatin Calcium (Atorvastatin Calcium 40 Mg Tablet) 40 mg PO QHS [facility] Last Admin: 09/08/20 21:27 Dose: 40 mg Documented by: Buspirone HCl (Buspirone 15 Mg Tablet) 15 mg PO DAILY [facility] Last Admin: 09/08/20 16:37 Dose: 15 mg Documented by: Calcium Carbonate (Calcium (Elemental) 500 Mg Tablet) 500 mg PO DAILY [facility] Last Admin: 09/08/20 16:38 Dose: 500 mg Documented by: Calcium Carbonate (Calcium Carbonate 500 Mg Tablet) 600 mg PO BIDCM [facility] Last Admin: 09/08/20 19:05 Dose: 600 mg Documented by: Enteral Nutritional Formula (Ensure Surgery 237 Ml Liquid) 237 ml PO TIDCM [facility] Last Admin: 09/08/20 18:21 Dose: Not Given Documented by: Famotidine (Famotidine 20 Mg Tablet) 20 mg PO BID [facility] Last Admin: 09/08/20 21:28 Dose: 20 mg Documented by: Guaifenesin (Guaifenesin 10 Ml Udc (200mg/10ml)) 20 ml PO Q4H PRN PRN PRN Reason: COUGH Hydralazine HCl (Hydralazine 20 Mg/Ml Vial) 10 mg IV Q4H PRN PRN PRN Reason: SBP > 160 Last Admin: 09/08/20 05:30 Dose: 10 mg Documented by: Isosorbide Mononitrate (Isosorbide Mononitrate 30 Mg Tablet) 30 mg PO DAILY [facility] Last Admin: 09/08/20 16:38 Dose: 30 mg Documented by: Lactobacillus Acidophilus (Lactobacillus Acidophilus) 1 tablet PO BID [facility] Last Admin: 09/08/20 21:27 Dose: 1 tablet Documented by: Magnesium Chloride (Magnesium Chloride 64 Mg Delay Rel.Tablet) 128 mg PO DAILY [facility] Last Admin: 09/08/20 16:38 Dose: 128 mg Documented by: Magnesium Hydroxide (Magnesium Hydroxide 30 Ml Udc) 30 ml PO DAILY PRN PRN PRN Reason: Constipation Melatonin (Melatonin 3 Mg Tablet) 3 mg PO QHS PRN PRN PRN Reason: INSOMNIA Morphine Sulfate (Morphine 2 Mg/Ml Syringe) 2 mg IV Q3H PRN PRN PRN Reason: Pain Score 6-10 Last Admin: 09/08/20 07:49 Dose: 2 mg Documented by: Multivitamins ([facility]ivitamins,Therapeutic Tablet) [facility] Last Admin: 09/08/20 09:06 Dose: Not Given Documented by: Nitroglycerin (Nitroglycerin (Inpatient Use) 0.4 Mg Tab.Subl) 0.4 mg SUBLINGUAL Q5M PRN PRN Reason: CARDIAC/CHEST PAIN Ondansetron HCl (Ondansetron 4 Mg/2 Ml Vial) 4 mg IV Q8H PRN PRN PRN Reason: NAUSEA/VOMITING Oxycodone HCl (Oxycodone 5 Mg Tablet) 5 mg PO Q4H PRN PRN PRN Reason: Pain Score 4-5 Paroxetine HCl (Paroxetine Cr 12.5 Mg Tablet) 37.5 mg PO DAILY [facility] Last Admin: 09/08/20 16:38 Dose: 37.5 mg Documented by: Prochlorperazine Edisylate (Prochlorperazine 10 Mg/2 Ml Vial) 5 mg IV Q4H PRN PRN PRN Reason: Breakthrough nausea/vomiting Psyllium Hydrophilic Mucilloid (Psyllium 1 Packet) 1 packet PO DAILY PRN PRN PRN Reason: Constipation Ramipril (Ramipril 10 Mg Capsule) 10 mg PO DAILY [facility] Last Admin: 09/08/20 16:37 Dose: Not Given Documented by: Senna/Docusate Sodium (Senna/Docusate Sodium 1 Tablet) 2 tablet PO BID PRN PRN PRN Reason: Constipation Sodium Chloride (0.9% Saline Lock 10 Ml Syringe) 10 - 40 ml IV UD PRN PRN Reason: SALINE FLUSH Last Admin: 09/08/20 19:07 Dose: 10 ml Documented by: Throat Lozenges (Benzocaine/Menthol 1 Lozenge) 1 lozenge MUCOUS MEM Q2H PRN PRN PRN Reason: SORE THROAT Medical Necessity - Tobacco Use Smoking Status: Former smoker Tobacco Use: Cigarettes Assessment/Plan All Active Problems (Last Reviewed 10/02/19 @ 10:51 by Brianna Muñoz) Closed right hip fracture (Acute) 1. S/P right direct anterior total hip replacement secondary to subcapital femoral neck fracture POD #1 2. Continue Pain Medications: Tylenol and oxycodone 3. DVT Prophylaxis: Take 81 mg aspirin twice daily for 4 weeks postoperatively for DVT prophylaxis 4. PT/OT: Weightbearing as tolerated with walker 5. H & H: 8.3/26.1, asymptomatic. Acute on chronic anemia with acute blood loss from surgery without any intra operative complications. Will need to closely monitor due to patient's cardiac history. She is currently asymptomatic on clinical exam 6. Encouraged Incentive Spirometry 7. Continue postoperative medical management per medicine 8. Disposition: Orthopedically stable, okay for discharge when medicine feels appropriate and patient is medically stable. Patient will require 2-week follow-up with [facility] [place] for incision check and x-rays. Continue with above pain medications primarily Tylenol with only oxycodone for breakthrough pain. Continue with aspirin 81 mg twice daily for DVT prophylaxis for 4 weeks. Patient will require outpatient formal physical therapy upon discharge and is weightbearing as tolerated with walker. Dressing can be removed on postoperative day #5. Patient can shower with this dressing. Do not submerge underwater for 6 weeks postoperatively. Continue with ice over the anterior thigh. Appreciate consult and please contact orthopedics with any concerns or questions. We will sign off on patient at this time. Postoperative instructions will be placed in chart from an orthopedic standpoint.
--- NOTE | 2020-09-09 07:06 | DCINST_ITS ---
Discharge Activity: May Not Drive - while taking narcotic pain medications. May shower in (days): 1 - Okay to shower if dressing is intact to skin. Turn dressing away from water. Do not submerge underwater for 6 weeks postoperatively. Ice area for (Minutes): 20 - Every 1-2 hours while awake Weight Bearing Status: Weight bearing as tolerated Elevate: Operative Extremity Additional Activity Instructions:: Wear elastic stockings for 2 weeks. DO NOT use alcohol with narcotic pain medication. DO NOT make important decisions while taking narcotic medication. If you have problems with taking your medication (rash, itching, nausea, etc.) call the office at once. Call your doctor if your incision/area has: Increased Pain/ Swelling, Increased Redness, Foul Smelling Discharge Call your doctor if you observe: Fever of 101 or Higher Remove Dressing in (days):: 4 - Okay to remove postoperative dressing on September 13, 2020 Additional Instructions: Once postoperative dressing has been removed only use gentle soap and water over the incision. Do not use any ointments, Neosporin, salves, alcohol pads over the incision for 6 weeks postoperatively. Do not submerge underwater for 6 weeks postoperatively. Allergies/Adverse Reactions: Allergies cefaclor [From Ceclor] Allergy (Verified 09/07/20 17:37) Hives Medications to take at Discharge Aspirin [Aspir-Low] 81 mg PO DAILY 12/28/17 Atorvastatin Calcium 40 mg PO DAILY 12/28/17 Cranberry Fruit Extract [Cranberry] 500 mg PO DAILY 12/28/17 Isosorbide Mononitrate [Imdur] 30 mg PO DAILY 12/28/17 Multivitamin [Daily Multiple Vitamin] 1 tab PO DAILY 12/28/17 Paroxetine HCl [Paxil Cr] 37.5 mg PO DAILY 12/28/17 Ramipril [Altace] 10 mg PO DAILY 12/28/17 calcium carbonate 600 mg calcium (1,500 mg) tablet 600 mg PO BID tab 12/30/17 cholecalciferol (vitamin D3) 10 mcg (400 unit) capsule 400 unit PO QDAY 12/30/17 lactobacillus combination no.8 3 billion cell capsule 3,000 mmu cells PO QDAY 12/30/17 magnesium oxide 400 mg (241.3 mg magnesium) tablet 400 mg PO QDAY tab 12/30/17 omega-3 fatty acids 1,000 mg capsule 1,000 mg PO QDAY 12/30/17 buspirone 15 mg tablet 15 mg PO DAILY 30 Days #60 tab 09/22/18 Fluticasone/Umeclidin/Vilanter [Trelegy Ellipta 100-62.5-25] 1 puff INHALATION DAILY 09/07/20 Primary Care Physician: Nicci King DO [Primary Care Provider] - Test Results: Test results from this visit will be discussed in further detail at your follow- up appointment, if applicable. Please Follow Up With: Yunior Siegel PASang When: please schedule 2 week follow up for xrays
[2020-09-09 07:48] LABS: Vitamin D,25 Hydroxy 95.3 ng/mL
[2020-09-09 08:13] LABS: Vitamin B12 823 pg/mL (211-911)
[2020-09-09] MEDS: Aspirin 81 MG TAB.CHEW PO (09:09)
[2020-09-09] MEDS: Calcium Carbonate 500 MG Tablet 600 MG PO (09:10)
[2020-09-09] MEDS: Multivitamins,Therapeutic Tablet 1 TABLET PO (09:10)
[2020-09-09] MEDS: busPIRone 15 MG TABLET PO (09:11)
[2020-09-09] MEDS: Isosorbide Mononitrate 30 MG Tablet PO (09:12)
[2020-09-09] MEDS: Magnesium Chloride 64 MG Delay Rel.Tablet 128 MG PO (09:12)
[2020-09-09] MEDS: Famotidine 20 MG Tablet PO (09:14)
[2020-09-09] MEDS: Calcium (Elemental) 500 MG Tablet PO (09:15)
[2020-09-09] MEDS: FLUTICASONE/UMECLIDIN/VILANTER 1 EACH BLST.W.DEV IH (09:17)
[2020-09-09] MEDS: PARoxetine CR 12.5 MG Tablet 37.5 MG PO (10:05)
--- NOTE | 2020-09-09 10:16 | CASEMGMT ---
Per Dr. Sol, he believes that pt can go to IP rehab at discharge. He placed a call to Dr. Malik to update and this RN CM placed call to therapy to notify and let CM know, if they believe pt can do 3 hours therapy daily. Melecio WHITTINGTON updated on all, voices understanding. Susan RN CM
[2020-09-09] MEDS: oxyCODONE 5 MG Tablet PO (11:39)
[2020-09-09] MEDS: Ensure Surgery 237 ML LIQUID PO (11:39)
--- NOTE | 2020-09-09 11:44 | CASEMGMT ---
Addendum entered by Paige Calderon 09/09/20 14:15: Pt is discharged to rehab today. TIMMY Hood Original Note: SW spoke w/pt in room in regard to prior level of care and discharge plan. SW was informed that physician has recommended rehab and rehab has already accepted. PCP: Dr. King Specialists. Dr. Joy, pulmonology Pharmacy: [facility] Insurance: Medicare/[employer] LNOK: Daughter Piper Braxton POA: Daughter Piper, papers on file Prior level of function: Pt was independent prior to the fall one month prior. She does not drive however, daughter takes her to appointments. DME/HHC/SNF: Pt was using a cane, walker and wheelchair for one month when home w/hip fracture. Before this no DME was needed. SW spoke w/pt in regard to discharge options, she is in agreement w/going to inpt rehab. SW will continue to follow, PT/OT are pending. TIMMY Hood
--- NOTE | 2020-09-09 13:15 | PCM.DC ---
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 Turn dressing away from water. Do not submerge underwater for 6 weeks postoperatively. Ice area for (Minutes): 20 - Every 1-2 hours while awake Weight Bearing Status: Weight bearing as tolerated - use walker Keep extremity elevated above heart level: Operative Extremity Additional Activity Instructions:: Wear elastic stockings for 2 weeks. DO NOT use alcohol with narcotic pain medication. DO NOT make important decisions while taking narcotic medication. If you have problems with taking your medication (rash, itching, nausea, etc.) call the office at once. Call your doctor if your incision/area has: Increased Pain/ Swelling, Increased Redness, Foul Smelling Discharge Call your doctor if you observe: Fever of 101 or Higher Remove Dressing in (days):: 4 - Okay to remove postoperative dressing on September 13, 2020 Allergies/Adverse Reactions: Allergies cefaclor [From Ceclor] Allergy (Verified 09/07/20 17:37) Hives Medications to take at Discharge Atorvastatin Calcium 40 mg PO DAILY 12/28/17 Isosorbide Mononitrate [Imdur] 30 mg PO DAILY 12/28/17 Multivitamin [Daily Multiple Vitamin] 1 tab PO DAILY 12/28/17 Paroxetine HCl [Paxil Cr] 37.5 mg PO DAILY 12/28/17 Ramipril [Altace] 10 mg PO DAILY 12/28/17 calcium carbonate 600 mg calcium (1,500 mg) tablet 600 mg PO BID tab 12/30/17 cholecalciferol (vitamin D3) 10 mcg (400 unit) capsule 400 unit PO QDAY 12/30/17 lactobacillus combination no.8 3 billion cell capsule 3,000 mmu cells PO QDAY 12/30/17 magnesium oxide 400 mg (241.3 mg magnesium) tablet 400 mg PO QDAY tab 12/30/17 omega-3 fatty acids 1,000 mg capsule 1,000 mg PO QDAY 12/30/17 buspirone 15 mg tablet 15 mg PO DAILY 30 Days #60 tab 09/22/18 Fluticasone/Umeclidin/Vilanter [Trelegy Ellipta 100-62.5-25] 1 puff INHALATION DAILY 09/07/20 Aspirin [Aspirin, Baby] 81 mg PO BIDCM tab.chew 09/09/20 Famotidine [Pepcid] 20 mg PO BID tab 09/09/20 Fluticasone/Umeclidin/Vilanter [Trelegy Ellipta 100-62.5-25] 1 ea IH DAILY blst.w.dev 09/09/20 Oxycodone [Oxyir] 5 mg PO Q4H PRN PRN 1 Days #1 tab 09/09/20 Primary Care Physician: Nicci King DO [Primary Care Provider] - Test Results: Test results from this visit will be discussed in further detail at your follow-up appointment, if applicable. Please Follow Up With: Yunior Siegel PA-C When: please schedule 2 week follow up for xrays Please Follow Up With: Nicci King DO
--- NOTE | 2020-09-09 14:08 | NURSING ---
report called to Yudith CONTRERAS
--- NOTE | 2020-09-09 19:30 | PCM.DC.SUM ---
Discharge Date and Diagnosis - Problem List Patient Problems: Active and Suspected Problems (Last Reviewed 10/02/19 @ 10:51 by Brianna Muñoz) Closed right hip fracture (Acute) Date of Admission: 09/07/20 Date of Discharge: 09/09/20 - Primary Discharge Diagnosis Acute Problems: Active Problems (Last Reviewed 10/02/19 @ 10:51 by Brianna Muñoz) #1 right hip subcapital femoral neck fracture-closed #2 right hip osteoarthritis #3 acute on chronic hypoxic respiratory failure #4 chronic obstructive pulmonary disease #5 chronic kidney disease stage III #6 atherosclerotic heart disease #7 essential hypertension #8 hypokalemia - Secondary Discharge Diagnosis Chronic Problems: Chronic Problems (Last Reviewed 10/02/19 @ 10:51 by Brianna Muñoz) Former tobacco use (Chronic) COPD (chronic obstructive pulmonary disease) (Chronic) Anxiety and depression (Chronic) CKD (chronic kidney disease) (Chronic) Pure hypercholesterolemia (Chronic) Essential hypertension (Chronic) Dyspnea on exertion (Chronic) Atherosclerotic heart disease of [place] coronary artery without angina pectoris (Chronic) 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 Work-up in the emergency room included a right hip x-ray that showed a right femoral neck fracture, the prior x-ray approximately 2 weeks ago did not show the hip fracture. Chemistries were remarkable for potassium of 3.2, patient was admitted to [place] [address], she was given potassium replacement, she was seen in consultation by orthopedic surgery and underwent a right total hip replacement. Postop patient was hypoxic and was transferred to PCU after surgery for close observation. Patient has a history of chronic hypoxic respiratory failure and is on oxygen at home. Patient is oxygen was able to be weaned on PCU. Patient was seen and examined on 09/09/2020: On examination she appeared in good health and spirits, she does not appear to be in any distress. Vital signs as documented. Skin warm and dry and without overt rashes. Neck without JVD, thyroid appears normal, trachea is midline, neck is supple. Lungs clear, normal air movement was noted. Heart exam notable for regular rhythm, normal sounds and absence of murmurs, rubs or gallops. Abdomen unremarkable and without evidence of organomegaly, masses, or abdominal aortic enlargement, bowel sounds are present in all 4 quadrants, no abdominal tenderness was noted. Extremities nonedematous, no cyanosis was noted, no clubbing was noted. Neuro: Cranial nerves II through XII are grossly intact, no focal motor deficits were noted, sensation to light touch and pinprick is intact, motor exam 5/5 throughout. Psych: Patient is alert and oriented x3, she does not appear anxious or depressed, she does not appear agitated. Patient agreed to go to the rehab unit at [facility] for inpatient rehab services, she was discharged in stable condition on 09/09/2020. Patient Problems: Active and Suspected Problems (Last Reviewed 10/02/19 @ 10:51 by Brianna Muñzo) Closed right hip fracture (Acute) - Physical Exam Vitals/I&O's: Vital Signs Temp Pulse Resp BP Pulse Ox 97.9 F 88 18 118/55 L 93 09/09/20 13:55 09/09/20 13:55 09/09/20 13:55 09/09/20 13:55 09/09/20 13:55 Oxygen Flow Rate (L/min) 3 Oxygen Delivery Method Nasal Cannula Weight: 52.8 kg Body Mass Index (BMI) 20.6 Intake and Output for Last 24 Hours 09/07/20 09/08/20 09/09/20 23:59 23:59 23:59 Intake Total 3950.00 / 3950.00 838.33 / 838.33 Output Total 2450 / 2450 275 / 275 Balance 1500.00 / 1500.00 563.33 / 563.33 Microbiology Past 72 Hours 09/08/20 00:50 Urine Catheter - Cardona Urine Culture - Preliminary Culture exhibits no growth. 09/07/20 21:40 Mucosa - Nose SARS-CoV-2 Antigen (Rapid) - Final Laboratory Results 09/08/20 05:37: Vitamin B12 823 09/08/20 20:22: Hgb 9.4 L, Hct 29.5 L 09/09/20 05:23: WBC 13.8 H, RBC 2.46 L, Hgb 8.3 L, Hct 26.1 L, MCV 106.1 H, MCH 33.7 H, MCHC 31.8 L, RDW Std Deviation 51.2 H, RDW Coeff of Linette 13.2, Plt Count 169, MPV 10.7 09/09/20 05:23: Sodium 138, Potassium 3.8, Chloride 107, Carbon Dioxide 25.0, Anion Gap 6, BUN 25 H, Creatinine 1.22 H, Estim Creat Clear Calc 29.92, Est GFR (MDRD) Af Amer 54 L, Est GFR (MDRD) Non-Af 45 L, BUN/Creatinine Ratio 20.5 H, Glucose 104, Calcium 8.1 L 09/09/20 05:23: Vitamin D 25-Hydroxy 95.3 Discharge Activity: May Not Drive - while taking narcotic pain medications., Use Walker May shower in (days): 1 - Okay to shower if dressing is intact to skin. Turn dressing away from water. Do not submerge underwater for 6 weeks postoperatively. Ice area for (Minutes): 20 - Every 1-2 hours while awake Weight Bearing Status: Weight bearing as tolerated - use walker Keep extremity elevated above heart level: Operative Extremity Additional Activity Instructions:: Wear elastic stockings for 2 weeks. DO NOT use alcohol with narcotic pain medication. DO NOT make important decisions while taking narcotic medication. If you have problems with taking your medication (rash, itching, nausea, etc.) call the office at once. Call your doctor if your incision/area has: Increased Pain/ Swelling, Increased Redness, Foul Smelling Discharge Call your doctor if you observe: Fever of 101 or Higher Remove Dressing in (days):: 4 - Okay to remove postoperative dressing on September 13, 2020 Home Medications: Medications to take at Discharge Atorvastatin Calcium 40 mg PO DAILY 12/28/17 Isosorbide Mononitrate [Imdur] 30 mg PO DAILY 12/28/17 Multivitamin [Daily Multiple Vitamin] 1 tab PO DAILY 12/28/17 Paroxetine HCl [Paxil Cr] 37.5 mg PO DAILY 12/28/17 Ramipril [Altace] 10 mg PO DAILY 12/28/17 calcium carbonate 600 mg calcium (1,500 mg) tablet 600 mg PO BID tab 12/30/17 cholecalciferol (vitamin D3) 10 mcg (400 unit) capsule 400 unit PO QDAY 12/30/17 lactobacillus combination no.8 3 billion cell capsule 3,000 mmu cells PO QDAY 12/30/17 magnesium oxide 400 mg (241.3 mg magnesium) tablet 400 mg PO QDAY tab 12/30/17 omega-3 fatty acids 1,000 mg capsule 1,000 mg PO QDAY 12/30/17 buspirone 15 mg tablet 15 mg PO DAILY 30 Days #60 tab 09/22/18 Fluticasone/Umeclidin/Vilanter [Trelegy Ellipta 100-62.5-25] 1 puff INHALATION DAILY 09/07/20 Aspirin [Aspirin, Baby] 81 mg PO BIDCM 09/09/20 Famotidine [Pepcid] 20 mg PO BID 09/09/20 Fluticasone/Umeclidin/Vilanter [Trelegy Ellipta 100-62.5-25] 1 ea IH DAILY 09/09/20 Oxycodone [Oxyir] 5 mg PO Q4H PRN PRN 09/09/20 Primary Care Physician: Nicci King DO [Primary Care Provider] - Please Follow Up With: Yunior Siegel PAAmadeoC When: please schedule 2 week follow up for xrays Please Follow Up With: Nicci King DO Additional Instructions: Once postoperative dressing has been removed only use gentle soap and water over the incision. Do not use any ointments, Neosporin, salves, alcohol pads over the incision for 6 weeks postoperatively. Do not submerge underwater for 6 weeks postoperatively. Disposition: Inpt Rehab Unit/Facility Minutes spent on discharge:: 31 Patient Condition:: Stable Medical Necessity - Tobacco Use Smoking Status: Former smoker Tobacco Use: Cigarettes Meaningful Use Info Meaningful Use Diagnoses (Choose all that apply): None applicable Inpatient E&M: 66781 Disch Hosp
== END 2020-09-09 14:31 | DRG 521 ==
LOC: ED 18:52 → MS3 22:11 → PCU 09-08 14:20
PROVIDERS: Internal Medicine; Specialist; Admitting Provider Family Medicine; Emergency Provider Emergency Medicine; PCP Internal Medicine; Visit Provider Internal Medicine
PROC: 0SRR039 Replacement of Right Hip Joint, Femoral Surface with Ceramic Synthetic Substitute, Cemented, Open Approach (ICD-10-PCS; CPT 27125; principal; 2020-09-08 09:00)
DX: S72.011A Unspecified intracapsular fracture of right femur, initial encounter for closed fracture (principal); J96.21 Acute and chronic respiratory failure with hypoxia; D62 Acute posthemorrhagic anemia; M16.11 Unilateral primary osteoarthritis, right hip; W19.XXXA Unspecified fall, initial encounter; Y93.9 Activity, unspecified; Y92.9 Unspecified place or not applicable; I12.9 Hypertensive chronic kidney disease with stage 1 through stage 4 chronic kidney disease, or unspecified chronic kidney disease; D53.9 Nutritional anemia, unspecified; E78.00 Pure hypercholesterolemia, unspecified; E78.5 Hyperlipidemia, unspecified; E87.6 Hypokalemia; F32.9 Major depressive disorder, single episode, unspecified; F41.9 Anxiety disorder, unspecified; I25.10 Atherosclerotic heart disease of native coronary artery without angina pectoris; I34.0 Nonrheumatic mitral (valve) insufficiency; J44.9 Chronic obstructive pulmonary disease, unspecified; N18.30 Chronic kidney disease, stage 3 unspecified; Z87.891 Personal history of nicotine dependence; Z79.82 Long term (current) use of aspirin; Z79.899 Other long term (current) drug therapy; Z90.49 Acquired absence of other specified parts of digestive tract; Z99.81 Dependence on supplemental oxygen
CPT/HCPCS: 36415; 71045; 72192; 73502; 76000; 80048; 80053; 81001; 82306; 82607; 82728; 82746; 83540; 83550; 83735; 84443; 85014; 85018; 85025; 85027; 85610; 86850; 86900; 86901; 87086; 87426; 88305; 88311; 93005; 94640; 97162; 97166; 99251; 99284; C1776; J7030; J7120; A4216; G0463; J2405

== ENCOUNTER 2020-09-09 14:45 | Inpatient (IN) | payer MEDICARE, OTHER, SELFPAY ==
[2020-09-08 09:06] VITALS: BMI 20.6
[2020-09-09 15:13] VITALS: BP 112/63; PULSE 70; RESP 17; TEMP 36.7; O2SAT 96; BMI 20.6; BMI 52.8
[2020-09-09] MEDS: Aspirin 81 MG TAB.CHEW PO (18:13)
[2020-09-09] MEDS: Calcium (Elemental) 500 MG Tablet PO (18:23)
[2020-09-09 20:00] VITALS: BP 124/71; PULSE 96; RESP 20; TEMP 37.1; O2SAT 96
[2020-09-09 20:09] VITALS: O2SAT 97
[2020-09-09] MEDS: Senna/Docusate Sodium 1 Tablet 2 TABLET PO (21:13)
[2020-09-09] MEDS: Famotidine 20 MG Tablet PO (21:13)
[2020-09-09] MEDS: Fluticasone/Salmeterol 232-14 Inhaler 1 PUFF IH (21:13)
--- NOTE | 2020-09-10 04:07 | NURSING ---
pt bed alarm going off and pt found on the side of the bed wanting to go for a walk, staff encourage pt to continue to rest at this time d/t therapy would be in a couple hours . pt returned to bed and positioned for comfort , alarms intact
[2020-09-10] MEDS: oxyCODONE 5 MG Tablet PO ×2 (05:36→14:39)
--- NOTE | 2020-09-10 05:38 | NURSING ---
Reviewed and agree with [employer] documentation and charting.
--- NOTE | 2020-09-10 07:17 | NURSING ---
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 information passed along to day shift ,and urine will need to be obtained again
[2020-09-10 07:19] VITALS: O2SAT 90
[2020-09-10 07:30] VITALS: BP 113/59; PULSE 103; RESP 16; TEMP 36.9; O2SAT 93
[2020-09-10] MEDS: Aspirin 81 MG TAB.CHEW PO ×2 (08:21→17:56)
[2020-09-10] MEDS: Multivitamins,Therapeutic Tablet 1 TABLET PO (08:21)
[2020-09-10] MEDS: Fluticasone/Salmeterol 232-14 Inhaler 1 PUFF IH ×2 (08:21→21:46)
[2020-09-10] MEDS: busPIRone 15 MG TABLET PO (08:21)
[2020-09-10] MEDS: Ramipril 10 MG Capsule PO (08:21)
[2020-09-10] MEDS: Calcium (Elemental) 500 MG Tablet PO ×2 (08:21→17:56)
[2020-09-10] MEDS: Isosorbide Mononitrate 30 MG Tablet PO (08:22)
[2020-09-10] MEDS: Magnesium Chloride 64 MG Delay Rel.Tablet 128 MG PO (08:22)
[2020-09-10] MEDS: Atorvastatin Calcium 40 MG Tablet PO (08:22)
[2020-09-10] MEDS: Famotidine 20 MG Tablet PO ×2 (08:23→21:47)
[2020-09-10] MEDS: Senna/Docusate Sodium 1 Tablet 2 TABLET PO ×2 (08:23→21:48)
[2020-09-10] MEDS: PARoxetine CR 12.5 MG Tablet 37.5 MG PO (08:23)
[2020-09-10] MEDS: Umeclidinium Bromide Inhaler 1 PUFF IH (08:27)
[2020-09-10 10:00] VITALS: PULSE 102
--- NOTE | 2020-09-10 12:45 | PCM.HP.STD ---
Problem List (1) Physical debility Status: Acute Comment: Secondary to recent right hip fracture and subsequent ORIF on 09/08/2020 (2) Acute blood loss anemia Status: Acute (3) Dehydration Status: Acute (4) Tachycardia Status: Acute (5) Chronic respiratory failure with hypoxia, on home O2 therapy Status: Chronic (6) Closed right hip fracture Status: Acute Qualifiers: Encounter type: subsequent encounter (7) Former tobacco use Status: Chronic Comment: She quit in 1994 (8) COPD (chronic obstructive pulmonary disease) Status: Chronic Qualifiers: COPD type: unspecified COPD Qualified Code(s): J44.9 - Chronic obstructive pulmonary disease, unspecified (9) Anxiety and depression Status: Chronic (10) CKD (chronic kidney disease) Status: Chronic Comment: ? unclear. The GFR came up to 86 with hydration. (11) Pure hypercholesterolemia Status: Chronic (12) Essential hypertension Status: Chronic (13) Dyspnea on exertion Status: Chronic (14) Atherosclerotic heart disease of [place] coronary artery without angina pectoris Status: Chronic Qualifiers: [place] vs. 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 Agusto Arreaga. Mehnaz is an 79-year-old female with a past medical history of nonobstructive coronary artery disease, COPD, depression/anxiety, hypertension, hyperlipidemia, tobacco dependence in remission, mild bilateral carotid artery stenosis (less than 50% bilaterally), chronic hypoxic respiratory failure on home O2, nonrheumatic trivial mitral regurgitation on an echocardiogram in March 2018 and chronic hypomagnesemia who presented to the emergency department at [facility] because an OP Hip XRAY showed a R femoral neck fracture. She gave a hx of having fallen over her cat about 4 weeks prior to having the XRAY. X-rays of the right hip and pelvis were done demonstrating the right femoral neck fracture with no pelvic fractures. She was admitted to [facility] and Dr. Agusto Arreaga was consulted for surgical repair. On 09/08/2020 she underwent a right anterior total hip replacement. Mehnaz lives alone and has 1 step to enter her house. There is a flight of stairs to the basement. She normally walks without an assistive device and is independent with all ADLs. Is a tub shower. She was transferred to the acute rehab unit on 09/09/2020 for greater than 3 hours of therapy daily to restore her at or near her prior level of independence/function. All Lab and documentation from the acute hospital admission was reviewed on the EMR. On the date of discharge from the hospital her white blood cell count was elevated at 13.8. Hemoglobin was 8.3, down from 11.8 at admission. MCV was elevated at 106.1. Platelets were within normal limits. The BUN was 25 and the creatinine had increased to 1.22 from 1.08 at presentation to the emergency department on 09/07/2020. Iron studies were done and the serum iron was low at 40 and the iron saturation was low at 15.7. Ferritin was 153. Folate and B12 for within normal limits and TSH was normal at 2.7. Vitamin D level was normal at 95.3. Calcium corrected for hypoalbuminemia was within normal limits. Cardiac catheterization in October 2018 showed a normal left ventricular ejection fraction and a normal right heart pressure. There was evidence of trivial triple-vessel disease. On ECHO in March of 2018 the L atrium may have mild enlargement. Past Medical History Past Medical History (Chronic Problems): Chronic Problems (Last Reviewed 09/10/20 @ 13:[address] Gisel Malik DO) Former tobacco use (Chronic) She quit in 1994 COPD (chronic obstructive pulmonary disease) (Chronic) Anxiety and depression (Chronic) CKD (chronic kidney disease) (Chronic) ? unclear. The GFR came up to 86 with hydration. 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 Nonrheumatic mitral valve regurgitation (Chronic) I34.0 Depression F32.9 COPD (chronic obstructive pulmonary disease) J44.9 Allergies cefaclor [From Ceclor] Allergy (Verified 09/07/20 17:37) Hives Home Medications: Ambulatory Orders Medication Instructions Recorded Atorvastatin Calcium 40 mg PO DAILY 12/28/17 Isosorbide Mononitrate [Imdur] 30 mg PO DAILY 12/28/17 Multivitamin [Daily Multiple 1 tab PO DAILY 12/28/17 Vitamin] Paroxetine HCl [Paxil Cr] 37.5 mg PO DAILY 12/28/17 Ramipril [Altace] 10 mg PO DAILY 12/28/17 calcium carbonate 600 mg calcium 600 mg PO BID tab 12/30/17 (1,500 mg) tablet cholecalciferol (vitamin D3) 10 400 unit PO QDAY 12/30/17 mcg (400 unit) capsule lactobacillus combination no.8 3 3,000 mmu cells PO QDAY 12/30/17 billion cell capsule magnesium oxide 400 mg (241.3 mg 400 mg PO QDAY tab 12/30/17 magnesium) tablet omega-3 fatty acids 1,000 mg 1,000 mg PO QDAY 12/30/17 capsule buspirone 15 mg tablet 15 mg PO DAILY 30 Days #60 tab 09/22/18 Fluticasone/Umeclidin/Vilanter 1 puff INHALATION DAILY 09/07/20 [Trelegy Ellipta 100-62.5-25] Aspirin [Aspirin, Baby] 81 mg PO BIDCM 09/09/20 Famotidine [Pepcid] 20 mg PO BID 09/09/20 Fluticasone/Umeclidin/Vilanter 1 ea IH DAILY 09/09/20 [Trelegy Ellipta 100-62.5-25] Oxycodone [Oxyir] 5 mg PO Q4H PRN PRN 09/09/20 Surgical History: Surgical History (Last Reviewed 09/10/20 @ 13:[address] Gisel Malik, DO) History of cholecystectomy Z90.49 Surgical History: - - Cholecystectomy, tonsillectomy. Right total hip replacement on 09/08/[address] Arreaga. 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 Gisel Malik DO) Father Myocardial infarction, Onset Age: 43 Brother Myocardial infarction, Onset Age: 52 Brother CAD (coronary artery disease) History Items: Cancer - Mother with history of pancreatic cancer. Paternal Family History: Family History (Last Reviewed 09/11/20 @ 10:[address] Gisel Malik DO) Father Myocardial infarction, Onset Age: 43 Brother Myocardial infarction, Onset Age: 52 Brother CAD (coronary artery disease) History Items: High Cholesterol, Heart Disease, Hypertension Review of Systems Constitutional: Reports: - - tells me that her appetitie is better today.. Denies: Chills, Fever, Weight Change Eyes: Denies: Blurred vision HEENT: Denies: Difficulty Swallowing, Head Aches, Nasal Congestion, Sinus Congestion, Sinus Drainage, Sore Throat Cardiovascular: Reports: Light Headedness - when she gets up. Denies: Chest Pain, Palpitations Respiratory: Reports: Cough - occasional .....nothing outside of her ordinary. Denies: Shortness of Breath, Shortness of breath at rest, Sputum production, Wheezing Gastrointestinal: Denies: Abdominal Pain, Constipation, Diarrhea, Nausea, Vomiting Genitourinary: Reports: Incontinence - urge incontinence. Denies: Dysuria Musculoskeletal: Reports: Joint Tenderness, Leg Pain, Muscle pain. Denies: Joint Pain Skin: Reports: Wounds - incision of the R hip due to recent ORIF. Denies: Jaundice, Rash Neurological: Denies: Double vision, Change in Speech, Slurred speech, Confusion, Focal weakness, Numbness, Tingling, Tremor, Seizures Psychiatric: Denies: Anxiety, Depression, Homicidal Ideations, Suicidal Ideations Endocrine: Denies: Change in Body Habitus Hematologic/ Lymphatic: Denies: Easy Bruising, Easy Bleeding, Hx of blood clot VTE Information - Inpt Only VTE Present on Admission: No VTE Mechan Device Prophylaxis: Thigh High FRAN Hose VTE Pharm Prophylaxis ordered?: Yes Patient Problems: Active and Suspected Problems (Last Reviewed 09/10/20 @ 13:[address] Gisel Malik, DO) Closed right hip fracture (Acute) Physical debility (Acute) Secondary to recent right hip fracture and subsequent ORIF on 09/08/2020 Acute blood loss anemia (Acute) Dehydration (Acute) Tachycardia (Acute) - Physical Exam Vitals/I&O's: Vital Signs Temp Pulse Resp BP Pulse Ox 98.4 F 102 H 16 113/59 L 93 09/10/20 07:30 09/10/20 10:00 09/10/20 07:30 09/10/20 07:30 09/10/20 07:30 Oxygen Flow Rate (L/min) 3 Oxygen Delivery Method Nasal Cannula Weight: 116 lb 6.465 oz Body Mass Index (BMI) 20.6 Intake and Output for Last 24 Hours 09/08/20 09/09/20 09/10/20 23:59 23:59 23:59 Intake Total 400 / 400 500 / 500 Output Total 125 / 125 450 / 450 Balance 275 / 275 50 / 50 General: Alert, Oriented x3, Cooperative, No apparent distress, Well developed, Well nourished, - - sitting in the recliner at bedside.....just finished all her lunch HEENT: Atraumatic, PERRLA, EOMI, Normocephalic Oral: No Gingival or Mucosal Lesions/ Ulcerations, Dry Mucosa Neck: Supple, Negative Carotid Bruits, No Nodes, Trachea Midline Lungs: No rhonchi, No wheeze, Diminished, Rales - in both bases......coarse, - - no conversational dyspnea Cardiovascular: Regular Rhythm, Normal S1, Normal S2, No murmurs, No Ectopic Activity, No Gallop, Tachycardic Abdomen: Bowel Sounds Present, Soft, Non Tender, Non-Distended Extremities: No clubbing, No cyanosis, Edema - she has some edema of the R thigh and the R calf with no significant ankle edema Skin: No rashes, No breakdown Musculoskeletal: Arthritic Changes Neurological: Cranial nerves II-XII grossly intact, Neuro grossly intact Psych/Mental Status: Normal Affect, Appropriate Current Medications Aspirin (Aspirin 81 Mg Tab.Chew) [facility] Admin: 09/10/20 08:21 Dose: 81 mg Documented by: Atorvastatin Calcium (Atorvastatin Calcium 40 Mg Tablet) 40 mg PO DAILY [facility] Last Admin: 09/10/20 08:22 Dose: 40 mg Documented by: Bisacodyl (Bisacodyl 10 Mg Suppository) 10 mg RECTAL .PRN X 1 PRN PRN Reason: Constipation Buspirone HCl (Buspirone 15 Mg Tablet) 15 mg PO DAILY [facility] Last Admin: 09/10/20 08:21 Dose: 15 mg Documented by: Calcium Carbonate (Calcium (Elemental) 500 Mg Tablet) [facility] [place] Last Admin: 09/10/20 08:21 Dose: 500 mg Documented by: Cholecalciferol (Cholecalciferol (Vit D3) 1,000 Unit (25mcg)) 500 unit PO DAILY [facility] Last Admin: 09/10/20 08:23 Dose: 500 unit Documented by: Famotidine (Famotidine 20 Mg Tablet) 20 mg PO BID [facility] Last Admin: 09/10/20 08:23 Dose: 20 mg Documented by: Isosorbide Mononitrate (Isosorbide Mononitrate 30 Mg Tablet) 30 mg PO DAILY [facility] Last Admin: 09/10/20 08:22 Dose: 30 mg Documented by: Lactobacillus Acidophilus (Lactobacillus Acidophilus) 1 tablet PO DAILY [facility] Last Admin: 09/10/20 08:21 Dose: 1 tablet Documented by: Magnesium Chloride (Magnesium Chloride 64 Mg Delay Rel.Tablet) 128 mg PO DAILY [facility] Last Admin: 09/10/20 08:22 Dose: 128 mg Documented by: Magnesium Hydroxide (Magnesium Hydroxide 30 Ml Udc) 30 ml PO .PRN X 1 PRN PRN Reason: Constipation Multivitamins (Multivitamins,Therapeutic Tablet) [facility] [place] [facility] Admin: 09/10/20 08:21 Dose: 1 tablet Documented by: Oxycodone HCl (Oxycodone 5 Mg Tablet) 5 mg PO Q4H PRN PRN PRN Reason: Pain Score 1-10 Last Admin: 09/10/20 05:36 Dose: 5 mg Documented by: Paroxetine HCl (Paroxetine Cr 12.5 Mg Tablet) 37.5 mg PO DAILY [facility] Last Admin: 09/10/20 08:23 Dose: 37.5 mg Documented by: Ramipril (Ramipril 10 Mg Capsule) 10 mg PO DAILY [facility] Last Admin: 09/10/20 08:21 Dose: 10 mg Documented by: Fluticasone/Salmeterol (Fluticasone/Salmeterol 232-14 Inhaler) 1 puff IH Q12 [facility] Last Admin: 09/10/20 08:21 Dose: 1 puff Documented by: Senna/Docusate Sodium (Senna/Docusate Sodium 1 Tablet) 2 tablet PO BID [facility] Last Admin: 09/10/20 08:23 Dose: 2 tablet Documented by: Umeclidinium [place] (Umeclidinium [place] Inhaler) 1 puff IH DAILY [facility] Last Admin: 09/10/20 08:27 Dose: 1 puff Documented by: Assessment/Plan All Active Problems (Last Reviewed 09/10/20 @ 13:[address] Gisel Malik, DO) Closed right hip fracture (Acute) Physical debility (Acute) Acute blood loss anemia (Acute) Dehydration (Acute) Tachycardia (Acute) Impressions 1. Physical debility secondary to right subcapital femoral neck fracture with total hip replacement by Dr. Agusto Arreaga on 09/08/2020. 2. Subsequent visit for fractured right hip/total hip replacement on the right. 3. Acute blood loss anemia 4. Dehydration with elevated creatinine at 1.22 5. Chronic hypoxic respiratory failure on home O2 at 3 L/min 6. History of COPD 7. Nonobstructive coronary artery disease 8. Osteoporosis 9. Hypertension 10. Hyperlipidemia 11. Trivial mitral regurgitation, nonrheumatic 12. Anxiety/depression 13. Iron insufficiency PLAN PT for gait stability OT for ADL's ST for evaluation Analgesics as needed Bowel protocol Fall precautions Assess for Anxiety/Depression GI prophylaxis with famotidine-decrease the dose to 20 mg once a day due to creatinine clearance between 30 and 60. DVT prophylaxis with aspirin 81 mg twice daily. This is being managed by orthopedics and this is their preference. Follow up with Dr. Arreaga, Dr. King and Dr. Lara following DC from [facility] 2L of today recheck lab in the AM Suspect she will need a transfusion. She has chronic lung disease and hypoxic respiratory failure. She has a resting tachycardia and is requiring more oxygen than normal. Inpatient E&M: 56544 Init Hosp L3
--- NOTE | 2020-09-10 13:03 | REHABEVAL_ITS ---
Admission Information Primary Diagnosis:: Physical debility due to a fall resulting in a right hip fracture. Patient had ORIF on 09/08/2020. She is admitted to rehab for PT/OT to restore her at or near her prior level of function. She lives alone but her daughter lives at the bottom of the driveway. Status Changes from Prescreening?: No changes Identified Actual Problem List:: Falls, Skin Intergrity, Pain, ALteration in Cmfrt, Depression, Alteration in Sleep, Mobility Impaired, Self Care Deficit, BP, Hypertension, Alteration/ Air Exchange, Fluid Change-Dehydration, Alteration- Leisure Activ. Potential Problem List:: DVT, Bleeding, Infection, UTI, Aspiration, Falls, Skin Integrity, Depression Risk of Complications DVT: FRAN Cochran, - - Aspirin 81 mg twice daily prescribed by orthopedics Bleeding: Monitor Lab Values, Nursing to Teach Precautions for anti-coagulation therapy., Wound, if applicable, to be assessed every shift., Stroke patients assessed for lethargy or change in status. Infection: Clinical Staff to Monitor for S/S of infection:, S/S of infection include fever, redness, warmth, etc. Urinary Tract Infection: Monitor for frequency, burning, discomfort, or incontinence., Nursing will obtain urine sample for urinalysis and C&S when ordered. Aspiration: Clinical staff will monitor for coughing, drooling, congestion., Speech will evaluate swallowing and dsyphasia., Nursing will monitor patient swallowing during meals. Falls: Patient will be evaluated for Fall Precautions, Patient will be placed on Fall Precautions as indicated per protocol. Skin Breakdown: Nursing will assess skin daily using assessment tool., Nursing will place on Skin Breakdown Precautions as indicated. Pain: Clinical staff will assess patient's pain level per protocol., Medications will be given, if needed, and the pain level reassessed., Other methods: Massage, distraction, decrease stimulus, etc. used PRN. Plan of Care Patient requires physician specializing in physical medicine and rehab oversight to provide close medical supervision of rehab issues including: Pain Management, Sleep Problems, Bowel and Bladder, Medical and co-morbidity Management, DVT prophylaxis, Rehabilitation Leadership, Coordination of treatment team Patient needs Physical Therapy: For a minimum of 1 hour, At least 5 out of 7 days Patient needs Physical Therapy to improve:: Mobility, Mobility, Mobility, Strengthening, Transfers, Stretching, ROM, Endurance, Stairs, Gait, Balance Patient needs Occupational Therapy: For a minimum of 1 hour, At least 5 out of 7 days Patient needs Occupational Therapy to improve ADL's incl.: Eating, Grooming, Bathing, Dressing, Toileting, Toilet transfers, Community Reintegration, Higher functioning activities, Household tasks, Adaptive Equipment, Splinting, Other activities as determined Patient requires speech therapy: - - Speech therapy for swallowing and cognitive evaluation. Patient requires 24/7 Rehabilitation Nursing for: Pain Issues, Identifying and preventing risk factors, Monitoring and reporting current medical conditions, As sisting with ambulation, transfer, and all ADL's, Teaching patients about disease process and medications, Family teaching, Providing safe environment, Bowel and Bladder Issues, Skin integrity, Medication Management Patient needs [employer]/ Case Management for: Discharge Planning, Arranging Home Equipment or Services, Family Interventions Patient needs Dietary and Nutrition Services for: Adequate Nutrition, Nutritional Supplements, Nutritional Education Goals Patient will remain: free from falls, or injury at time of discharge. Patient will perform bed mobility at: MOD I level of assist. Patient will complete transfers from bed to chair at: MOD I level of assist. Patient will ambulate: with MOD I assist, with LRD, - - 300 feet Patient will propel wheelchair: - - Not applicable Patient will complete upper body dressing at: MOD I level of assist. Patient will complete lower body dressing at: MOD I level of assist. Patient will complete toileting at: MOD I level of assist. Patient will perform bathing at: MOD I level of assist. Patient will complete grooming at: MOD I level of assist. Patient will complete home management skills at: MOD I level of assist. Patient will achieve: - - Ascend and descend 1 step with 1 rail and a straight cane at contact-guard assist to allow access to her home Patient will have pain level of: of 3 or less Patient's skin will: remain intact, free from infection. Patient will receive: adequate nutrition. Discharge Planning Pt Prognosis for Sig. Practical Improv. w/in Reasonable Time: Good Anticipated D/C Destination: Home with Home Health - she will need supervision at least part of the day for the first 1-2 weeks post DC Was Preadmission Assessment Accurate?: Yes
[2020-09-10 14:13] LABS: Bacteria 0 SEEN /hpf (None Seen); Mucous, Urine 0 SEEN /hpf (<or=2+); Squamous Epithelial Cells - UA 0 SEEN /hpf (5-10)
[2020-09-10 14:23] LABS: Glucose, Dipstick Normal (Normal); Ketone-Dipstick 15 mg/dl (Negative); Leukocyte Esterase-Dipstick 25 /ul (Negative); Nitrite-Dipstick Negative (Negative); Occult Blood-Urine 25 /ul (Negative); Protein-Dipstick 15 mg/dl (Negative); Urine Bilirubin Dipstick Negative (Negative); Urine Urobilinogen Normal (Normal)
[2020-09-10 14:24] LABS: Color, Urine Yellow (Yellow); Urine Clarity Clear (Clear)
[2020-09-10 14:36] LABS: Red Blood Cells-Urine 0-5 SEEN /hpf (0-5); White Blood Cells 0-5 SEEN /hpf (0-5)
[2020-09-10] MEDS: Acetaminophen 500 MG Tablet 1000 MG PO ×2 (14:39→21:47)
[2020-09-10 21:45] VITALS: PULSE 95; RESP 20
[2020-09-10] MEDS: Arthritis Pain Compound 60 CLICK TUBE TOPICAL (21:46)
[2020-09-10] MEDS: MELATONIN 3 MG TABLET PO (21:48)
[2020-09-10 22:00] VITALS: BP 101/57; PULSE 95; RESP 20; TEMP 36.9; O2SAT 94
[2020-09-11] VITALS (10 sets, daily range): BP systolic 121–141; BP diastolic 69–82; PULSE 84–94; RESP 16–18; TEMP 36.8–37.2; O2SAT 87–99
--- NOTE | 2020-09-11 04:25 | NURSING ---
Reviewed and agree with LUMITE INJECTOR documentation and charting.
--- NOTE | 2020-09-11 04:55 | NURSING ---
Pt stated IV fell out and pt was holding IV in hand. IV intact and disposed of. New IV started in Left wrist and running @ 75mL/hr.
[2020-09-11] MEDS: Acetaminophen 500 MG Tablet 1000 MG PO ×3 (05:00→20:52)
[2020-09-11] MEDS: Arthritis Pain Compound 60 CLICK TUBE TOPICAL ×3 (05:00→20:52)
[2020-09-11 05:12] LABS: Absolute Lymphocyte Count 0.88 X10^3/uL (0.83-4.51); Absolute Neutrophil Count 7.9 X10^3/uL (2.0-7.7); Basophil# 0.03 X10^3/uL; Basophil% 0.3 % (0-1); Eosinophil# 0.19 X10^3/uL; Eosinophils% 1.9 % (0-5); Hematocrit 23.3 % (37-47); Hemoglobin 7.5 g/dL (12.0-15.0); Lymphocyte # 0.88 X10^3/ul (4.0); Mean Corp Hgb Conc 32.2 g/dL (32-36); Mean Corpuscular Hgb 33.2 pg (27.0-32.0); Mean Corpuscular Volume 103.1 fL (81-99); Mean Platelet Vol. 10.8 fl (6.2-12.0); Monocyte# 0.68 X10^3/uL; NRBC Flagged by Analyzer 0 % (0-5); Neutrophil # 7.92 X10^3/uL (2.7-7.7); Neutrophil % 81.2 % (47-70); Platelet Count 170 K/mm3 (150-450); RBC Distribution Width CV 13.2 % (11.6-14.6); RBC Distribution Width SD 50.1 fl (35.1-43.9); Red Blood Count 2.26 M/mm3 (4.2-5.4); White Blood Count 9.8 K/mm3 (4.4-11.0)
[2020-09-11 05:34] LABS: Anion Gap 4 (5-15); BUN 20 mg/dL (7-18); BUN/Creat Ratio 28.9 RATIO (10-20); Calcium,Total 8.2 mg/dL (8.5-10.1); Chloride 111 mmol/L (98-107); Creatinine, Serum 0.69 mg/dL (0.55-1.02); EST Glomerular Filtration Rate 86 mL/min (>60); Est Glom Filt Rate - Afr Amer 105 mL/min (>60); Glucose 100 mg/dL (74-106); Magnesium 1.9 mg/dL (1.6-2.6); Phosphorus 1.3 mg/dL (2.5-4.9); Sodium Level 141 mmol/L (136-145)
[2020-09-11] MEDS: busPIRone 15 MG TABLET PO (09:12)
[2020-09-11] MEDS: Calcium (Elemental) 500 MG Tablet PO ×2 (09:12→17:00)
[2020-09-11] MEDS: Multivitamins,Therapeutic Tablet 1 TABLET PO (09:12)
[2020-09-11] MEDS: Ramipril 10 MG Capsule PO (09:12)
[2020-09-11] MEDS: Aspirin 81 MG TAB.CHEW PO (09:12)
[2020-09-11] MEDS: Umeclidinium Bromide Inhaler 1 PUFF IH (09:13)
[2020-09-11] MEDS: Fluticasone/Salmeterol 232-14 Inhaler 1 PUFF IH ×2 (09:13→20:53)
[2020-09-11] MEDS: Isosorbide Mononitrate 30 MG Tablet PO (09:13)
[2020-09-11] MEDS: Atorvastatin Calcium 40 MG Tablet PO (09:14)
[2020-09-11] MEDS: PARoxetine CR 12.5 MG Tablet 37.5 MG PO (09:14)
[2020-09-11] MEDS: Magnesium Chloride 64 MG Delay Rel.Tablet 128 MG PO (09:14)
[2020-09-11] MEDS: Senna/Docusate Sodium 1 Tablet 2 TABLET PO ×2 (09:14→20:53)
[2020-09-11] MEDS: Famotidine 20 MG Tablet PO (09:14)
--- NOTE | 2020-09-11 09:59 | PN_ITS ---
Progress Note Afebrile VSS and resting heart rate is increased in the 90s and low 100s. Blood pressure this morning is 121/72. O2 sat dropped to 78% just talking with the speech therapist today. Oral intake is fair Last bowel movement 09/11/2020 Discussed with nursing - She slept well last night. She is c/o increased work of breathing and the O2 had to be increased to 5 L and she is still only 87%. Reviewed the PT/OT/ST notes Medication list reviewed. All lab was personally reviewed. The white blood cell count today is 9.8, down from 13.8 on 09/09/2020. She has 81% neutrophils. Hemoglobin today is 7.5, down from 10.8 on 09/08/2020. MCV is 103.1. Platelets are within normal limits. With hydration the creatinine is 0.69 today, down from 1.22 yesterday. The BUN is down to 20. Potassium is 4. Phosphorus is low at 1.3 and the magnesium is 1.9. The urine on 09/10/2020 had 0- 5 RBCs, 0-5 WBCs and 0 bacteria. Was negative for nitrites. Stool is Hemoccult negative. Urine culture from 09/08/2020 (taken from a Cardona catheter) had no growth. Mehnaz is complaining of a cough today and it is sometimes productive but she cannot expectorate. And I asked her if this is her normal cough she says she thought so. She denies chest pain. She is having dyspnea even at rest today. She is also complaining of a dry mouth. She denies calf pain. General: Alert, oriented ?3, cooperative, pleasant and appropriate, she is tachypneic at rest today. Neck: Supple, trachea midline, no enlarged cervical nodes, no enlarged supraclavicular nodes Lungs: Breath sounds are diminished and there are coarse crackles in the left base posterior lateral that are louder than yesterday., symmetric chest expansion, she is tachypneic, mild conversational dyspnea, no accessory muscle use Heart: regular but tachycardic, normal S1, normal S2, no murmur, no gallop, no rub Abdomen: Soft, NT, ND, bowel sounds present Extremities: No clubbing, no peripheral edema, no cyanosis, no calf tenderness non-focal neuro exam Impressions 1. Physical debility secondary to recent right hip fracture secondary to a fall. 2. Status post ORIF of right hip fracture on 09/08/[address] Agusto Arreaga. 3. Severe anemia in a patient with chronic lung disease and chronic hypoxic respiratory failure. 4. Cough with increased oxygen requirement. SARS COV rapid antigen was negative on 09/07/2020. The discharge summary documents clear lungs at DC from the hospital. She had crackles on the left posterolateral yesterday and they are worse today. The WBC is normal and she is afebrile but, she has a left shift. 5. Hypophosphatemia 6. Dehydration - improved. 7. iron deficiency - transferrin saturation is <20 at 15.7 supplement phosphorous Transfuse 2 units of PRBC's today PA and Lat CXR today limit therapy to low level in her room High flow oxygen if needed to keep the O2 sat > 89%. Rechek lab in the AM STROKE Vital Signs/Narrative: Vital Signs Temp Pulse Resp BP Pulse Ox 09/11/20 09:44 99.0 F 87 18 121/72 H 87 09/11/20 07:00 93 Inpatient E&M: 50114 Subs Hosp L3
--- NOTE | 2020-09-11 11:10 | RAD_ITS ---
STUDY: X-RAY CHEST REASON FOR EXAM: Female, 79 years old. DYSPNEA COARSE CRACKLES IN THE LEFT BASE. TECHNIQUE: PA and lateral views of the chest. COMPARISON: Comparison is made with prior study dated 09/07/2020. FINDINGS: Hyperinflation and emphysematous changes worse in the upper lobes. There now is evidence of the left perihilar and left lower lobe infiltrates as well as right lower lobe infiltrate. There is blunting of both costophrenic angles. Normal size heart. Normal mediastinum and roger. Normal visualized pulmonary arteries. There is atherosclerotic calcification of the aortic arch with tortuosity. There are diffuse degenerative changes of the visualized thoracic spine. Normal visualized ribs, clavicles, and shoulders. There is no demonstrated abnormality of the visualized soft tissue structures of the upper abdomen. RAD/Chest PA and Lateral IMPRESSION: Bilateral infiltrates as described superimposed on hyperinflation and emphysematous changes worse in the upper lobes. Electronically Signed: Shreyas Westbrook, at 11:27 EST , Service support ,
[2020-09-11 14:03] LABS: BNP,B-Type NATRIURETIC PEPTIDE 470.4 pg/mL (0-100)
[2020-09-11 14:06] LABS: CPK Total, Creatine Kinase 222 U/L (26-192); LDH 267 U/L (84-246)
[2020-09-11] MEDS: dexAMETHasone 10 MG/ML Vial 6 MG IV (14:13)
--- NOTE | 2020-09-11 14:19 | EKG12_ITS ---
Test Reason : ABNL LABS Blood Pressure : / mmHG Vent. Rate : 092 BPM Atrial Rate : 092 BPM P-R Int : 132 ms QRS Dur : 086 ms QT Int : 358 ms P-R-T Axes : 085 078 045 degrees QTc Int : 442 ms Sinus rhythm with Premature supraventricular complexes Nonspecific ST abnormality Abnormal ECG Confirmed by NORAH VALERO, ADAM ([id number]), primer expeditor and drier ARIADNE GOLD ([id number]) on 09/16/2020 9:54:07 AM Referred By: KADEN Confirmed By:ADAM ALMAZAN MD
[2020-09-11] MEDS: levoFLOXacin IV 750 MG/150 ML BAG 100 MG IV (14:25)
[2020-09-11 14:43] LABS: Fibrinogen 592 mg/dl (203-444); International Normalized Ratio 1.1; Prothrombin Time (Protime)PT. 13.9 SECONDS (11.7-14.9)
[2020-09-11 14:52] LABS: D-Dimer Quantitative (DVT/PE) 1.71 FEU/ug/m (0.27-0.49)
--- NOTE | 2020-09-11 14:56 | CT_ITS ---
STUDY: CTA CHEST REASON FOR EXAM: Female, 79 years old. ELEVATED D-DIMER RADIATION DOSAGE (If Supplied By Facility): CTDIvol = ( 11.32 ) mGy, DLP = ( 289.90 ) mGycm TECHNIQUE: The examination was performed with the intravenous administration of IV 100mL Isovue-370. Post-processing of the angiographic images was performed, with multiplanar reformation and 3D reconstruction. Individualized dose optimization techniques were used for this CT. COMPARISON: Comparison is made with prior examination dated 11/06/2010. Comparison is also made with prior chest radiograph done earlier in the day. FINDINGS: Normal enhancement of the main pulmonary artery and right and left pulmonary arteries. Normal enhancement of the bilateral peripheral pulmonary arteries. There is no demonstrated pulmonary embolism. Normal thoracic aorta and visualized great vessels. There is no demonstrated aortic dissection. Normal heart and pericardium. Normal mediastinum. Normal hilar regions. Normal visualized trachea and bronchi. Hyperinflation. Emphysematous changes worse in the upper lobes and more pronounced in the right upper lobe. There is a 1.5 cm x 0.7 cm stellate density in the posterior aspect of the left upper lobe suggestive of possible scar. This was not present on prior examination. There now is evidence of a progressive scarring and bullous changes in the lower lobes worse on the left side suggestive of progressive interstitial fibrosis with bronchiectasis and honeycombing. There is evidence of superimposed infiltrate in the posterior medial segment of the left lower lung. Follow-up is recommended. Normal pleura. Normal chest wall structures. There are degenerative changes of thoracic spine. Normal visualized upper abdomen. CT/CTA Chest W/WO Contrast IMPRESSION: Diffuse emphysematous changes with scarring at the lung bases and bronchiectasis worse in the left lower lobe with findings suggestive of a superimposed infiltrate in the posteromedial segment of the left lower lobe. There is no evidence of pulmonary embolism. Electronically Signed: Shreyas Westbrook, at 15:50 EST , Service support ,
[2020-09-11 15:05] LABS: Lactic Acid 2.3 mmol/L (0.4-1.9)
--- NOTE | 2020-09-11 16:19 | CON.PCM_ITS ---
Problem List (1) Closed right hip fracture Status: Acute Qualifiers: Encounter type: subsequent encounter (2) Former tobacco use Status: Chronic Comment: She quit in 1994 (3) COPD (chronic obstructive pulmonary disease) Status: Chronic Qualifiers: COPD type: unspecified COPD Qualified Code(s): J44.9 - Chronic obstructive pulmonary disease, unspecified (4) Anxiety and depression Status: Chronic (5) CKD (chronic kidney disease) Status: Chronic Comment: ? unclear. The GFR came up to 86 with hydration. (6) Physical debility Status: Acute Comment: Secondary to recent right hip fracture and subsequent ORIF on 09/08/2020 (7) Chronic respiratory failure with hypoxia, on home O2 therapy Status: Chronic (8) Essential hypertension Status: Chronic (9) Atherosclerotic heart disease of [place] coronary artery without angina pectoris Status: Chronic Qualifiers: [place] vs. 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 Patient reportedly has a history of COPD and is on 3 L nasal cannula at baseline. Patient reportedly follows with Dr. Joy and Dr. Lara in the [place] area. Patient states that she has had a comprehensive cardiac work-up but required no intervention. Patient reportedly had fallen and presented to [facility]. Patient had a ORIF with reported no complications. Patient reports that she had been feeling that her respiratory status was getting worse over the last 2 to 3 days. Patient knows that she has a history of COPD, but is unable to give any quantification or clarification of lung function. Patient states that she was typically on 2 L nasal cannula, but had increased it to 3 L nasal cannula with some improvement in symptoms. Patient did also reported some increased swelling of her lower extremities. Patient does have a cough that can be paroxysmal, but rarely makes much production. Patient has had some bloody noses recently, but denies any yohana hemoptysis. Patient reports she is compliant with her Trelegy at baseline. Patient is not on Lasix normally, but has received it intermittently in the past by cardiology. Review of systems otherwise negative from a constitutional, HEENT, respiratory, cardiovascular, GI, genitourinary, musculoskeletal, skin, neurologic, psychiatric and hematologic system unless stated above. Past Medical History Past Medical History (Chronic Problems): Chronic Problems (Last Reviewed 09/10/20 @ 13:[address] Gisel Malik DO) Former tobacco use (Chronic) She quit in 1994 COPD (chronic obstructive pulmonary disease) (Chronic) Anxiety and depression (Chronic) CKD (chronic kidney disease) (Chronic) ? unclear. The GFR came up to 86 with hydration. 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 Gisel Malik DO) Pure hypercholesterolemia (Chronic) E78.00 Essential hypertension (Chronic) I10 Atherosclerotic heart disease of [place] coronary artery without angina pectoris (Chronic) I25.10 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 Nonrheumatic mitral valve regurgitation (Chronic) I34.0 trivial on ECHO done 03/17/2018 Depression F32.9 COPD (chronic obstructive pulmonary disease) J44.9 Allergies cefaclor [From Ceclor] Allergy (Verified 09/07/20 17:37) Hives Home Medications: Ambulatory Orders Medication Instructions Recorded Atorvastatin Calcium 40 mg PO DAILY 12/28/17 Isosorbide Mononitrate [Imdur] 30 mg PO DAILY 12/28/17 Multivitamin [Daily Multiple 1 tab PO DAILY 12/28/17 Vitamin] Paroxetine HCl [Paxil Cr] 37.5 mg PO DAILY 12/28/17 Ramipril [Altace] 10 mg PO DAILY 12/28/17 calcium carbonate 600 mg calcium 600 mg PO BID tab 12/30/17 (1,500 mg) tablet cholecalciferol (vitamin D3) 10 400 unit PO QDAY 12/30/17 mcg (400 unit) capsule lactobacillus combination no.8 3 3,000 mmu cells PO QDAY 12/30/17 billion cell capsule magnesium oxide 400 mg (241.3 mg 400 mg PO QDAY tab 12/30/17 magnesium) tablet omega-3 fatty acids 1,000 mg 1,000 mg PO QDAY 12/30/17 capsule buspirone 15 mg tablet 15 mg PO DAILY 30 Days #60 tab 09/22/18 Fluticasone/Umeclidin/Vilanter 1 puff INHALATION DAILY 09/07/20 [Trelegy Ellipta 100-62.5-25] Aspirin [Aspirin, Baby] 81 mg PO BIDCM 09/09/20 Famotidine [Pepcid] 20 mg PO BID 09/09/20 Fluticasone/Umeclidin/Vilanter 1 ea IH DAILY 09/09/20 [Trelegy Ellipta 100-62.5-25] Oxycodone [Oxyir] 5 mg PO Q4H PRN PRN 09/09/20 Surgical History: Surgical History (Last Reviewed 09/10/20 @ 13:[address] Gisel Malik DO) History of cholecystectomy Z90.49 Surgical History: - - Cholecystectomy, tonsillectomy. Right total hip replacement on 09/08/[address] Arreaga. 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 Gisel Malik DO) Father Myocardial infarction, Onset Age: 43 Brother Myocardial infarction, Onset Age: 52 Brother CAD (coronary artery disease) History Items: Cancer - Mother with history of pancreatic cancer. Paternal Family History: Family History (Last Reviewed 09/11/20 @ 10:[address] Gisel Malik DO) Father Myocardial infarction, Onset Age: 43 Brother Myocardial infarction, Onset Age: 52 Brother CAD (coronary artery disease) History Items: High Cholesterol, Heart Disease, Hypertension Review of Systems Comment: See HPI Patient Problems: Active and Suspected Problems (Last Reviewed 09/10/20 @ 13:[address] Gisel Malik, DO) Closed right hip fracture (Acute) Physical debility (Acute) Secondary to recent right hip fracture and subsequent ORIF on 09/08/2020 Acute blood loss anemia (Acute) Dehydration (Acute) Tachycardia (Acute) Objective: All imaging was personally reviewed. Chest x-ray shows increasing infiltrates in bilateral midlung zones. Patient does have hyperinflation. CT of the chest was personally reviewed showing significant emphysematous changes, but no pulmonary embolism. Patient has had a cardiac catheterization completed in October 2018. Patient did have an elevated left ventricular end-diastolic pressure, but EF was preserved at 65%. Patient had some mild intraluminal abnormalities, but no stents were required. - Physical Exam Vitals/I&O's: Vital Signs Temp Pulse Resp BP Pulse Ox 37.2 C 87 18 121/72 H 87 09/11/20 09:44 09/11/20 09:44 09/11/20 09:44 09/11/20 09:44 09/11/20 09:44 Oxygen Flow Rate (L/min) 6 Oxygen Delivery Method Nasal Cannula Weight: 55.61 kg Body Mass Index (BMI) 20.6 Intake and Output for Last 24 Hours 09/09/20 09/10/20 09/11/20 23:59 23:59 23:59 Intake Total 400 / 400 1250 / 1250 2625.63 / 2625.63 Output Total 125 / 125 700 / 700 200 / 200 Balance 275 / 275 550 / 550 2425.63 / 2425.63 General: Alert, Oriented x3, Cooperative, - - Mild conversational dyspnea. Thin build. HEENT: Atraumatic, PERRLA, EOMI, Normocephalic, - - No scleral icterus or injection noted Oral: Moist Mucosa, No Gingival or Mucosal Lesions/ Ulcerations Neck: Supple, No Nodes, Trachea Midline, JVD, Right Lungs: No rhonchi, No wheeze, Diminished, Rales - Right greater than left Cardiovascular: Regular rate, Regular Rhythm, Normal S1, No murmurs, No rub noted, No Gallop, - - Accentuated S2 Abdomen: Bowel Sounds Present, Soft, Non Tender, Non-Distended Extremities: No clubbing, No cyanosis, Edema - Trace pedal edema Skin: No rashes, No breakdown, Incision - Clean, dry and intact Musculoskeletal: No Tenderness to Palpation of Joints or Extremities Lymphatic: No Cervical, Supraclavicular, or Inguinal Adenopathy Neurological: Cranial nerves II-XII grossly intact, Neuro grossly intact, Motor Exam 5/5 strength throughout Psych/Mental Status: Alert and oriented to time, place, person, mood and affect Microbiology Past 72 Hours 09/10/20 14:12 Urine, Catheterized Urine Culture - Preliminary Culture exhibits no growth. 09/11/20 13:25 Mucosa - Nose SARS-CoV-2 Antigen (Rapid) - Final 09/11/20 08:45 Stool Stool Occult Blood (CAIT) - Final Laboratory Results 09/11/20 04:58: WBC 9.8, RBC 2.26 L, Hgb 7.5 L, Hct 23.3 L, MCV 103.1 H, MCH 33.2 H, MCHC 32.2, RDW Std Deviation 50.1 H, RDW Coeff of Linette 13.2, Plt Count 170, MPV 10.8, Immature Gran % (Auto) 0.600, Neut % (Auto) 81.2 H, Lymph % (Auto) 9.0 L, [place] % (Auto) 7.0, Eos % (Auto) 1.9, Baso % (Auto) 0.3, Absolute Neuts (auto) 7.9 H, Absolute Lymphs (auto) 0.88, Nucleated RBC % 0 09/11/20 04:58: Sodium 141, Potassium 4.0, Chloride 111 H, Carbon Dioxide 26.0, Anion Gap 4 L, BUN 20 H, Creatinine 0.69, Estim Creat Clear Calc 36.50, Est GFR (MDRD) Af Amer 105, Est GFR (MDRD) Non-Af 86, BUN/Creatinine Ratio 28.9 H, Glucose 100, Calcium 8.2 L, Phosphorus 1.3 L, Magnesium 1.9 09/11/20 04:58: Lactate Dehydrogenase 267 H, Total Creatine Kinase 222 H, Troponin I 0.053 H 09/11/20 04:58: B-Natriuretic Peptide 470.4 H 09/11/20 10:57: Blood Type B POSITIVE, Antibody Screen NEGATIVE, Crossmatch See Detail 09/11/20 14:05: PT 13.9, INR 1.1, Fibrinogen 592 H, D-Dimer Quant (PE/DVT) 1.71 H* 09/11/20 14:05: Lactic Acid 2.3 H* 09/11/20 14:05: Procalcitonin Pending Current Medications Acetaminophen (Acetaminophen 500 Mg Tablet) 1,000 mg PO Q8 [facility] Last Admin: 09/11/20 14:30 Dose: 1,000 mg Documented by: Albuterol Sulfate (Albuterol 2.5 Mg/3 Ml Vial.Neb.) 2.5 mg INHALATION Q2H PRN PRN PRN Reason: WHEEZING Aspirin (Aspirin 81 Mg Tab.Chew) 81 mg PO BIDCM [facility] Last Admin: 09/11/20 09:12 Dose: 81 mg Documented by: Atorvastatin Calcium (Atorvastatin Calcium 40 Mg Tablet) 40 mg PO DAILY [facility] Last Admin: 09/11/20 09:14 Dose: 40 mg Documented by: Bisacodyl (Bisacodyl 10 Mg Suppository) 10 mg RECTAL .PRN X 1 PRN PRN Reason: Constipation Buspirone HCl (Buspirone 15 Mg Tablet) 15 mg PO DAILY [facility] Last Admin: 09/11/20 09:12 Dose: 15 mg Documented by: Calcium Carbonate (Calcium (Elemental) 500 Mg [facility]t) [facility] Admin: 09/11/20 09:12 Dose: 500 mg Documented by: Cholecalciferol (Cholecalciferol (Vit D3) 1,000 Unit (25mcg)) 500 unit PO DAILY [facility] Last Admin: 09/11/20 09:15 Dose: 500 unit Documented by: Compound Med (Arthritis Pain Compound 60 Click Tube) 0 click TOPICAL TID [facility]; Protocol Last Admin: 09/11/20 14:31 Dose: 3 click Documented by: Dexamethasone Sodium Phosphate (Dexamethasone 10 Mg/Ml Vial) 6 mg IV DAILY [facility] Last Admin: 09/11/20 14:13 Dose: 6 mg Documented by: Enoxaparin Sodium (Enoxaparin 30 Mg/0.3 Ml Syringe) 30 mg SC DAILY [facility] Famotidine (Famotidine 20 Mg Tablet) 20 mg PO DAILY [facility] Sodium Phosphate 40 mm/ Sodium (Chloride) 513.3333 mls @ 62.5 mls/hr IV X1 ONE Stop: 09/11/20 18:42 Last Infusion: 09/11/20 13:51 Dose: 0 mls/hr Documented by: Levofloxacin (Levaquin Iv) 750 mg in 150 mls @ 100 mls/hr IV Q48 [facility] [place] Last Admin: 09/11/20 14:25 Dose: 100 mls/hr Documented by: Vancomycin IV Pharmacy to Dose (1 ea/ Sodium Chloride) 500 mls @ 250 mls/hr IV X1 PRN; Protocol PRN Reason: Rx to Dose Sodium Chloride () 500 mls @ 30 mls/hr IV .[id number] [facility] Last Admin: 09/11/20 14:28 Dose: 30 mls/hr Documented by: Isosorbide Mononitrate (Isosorbide Mononitrate 30 Mg Tablet) 30 mg PO DAILY [facility] [place] Last Admin: 09/11/20 09:13 Dose: 30 mg Documented by: Lactobacillus Acidophilus (Lactobacillus Acidophilus) 1 tablet PO DAILY [facility] [place] Last Admin: 09/11/20 09:12 Dose: 1 tablet Documented by: Magnesium Chloride (Magnesium Chloride 64 Mg Delay Rel.Tablet) 128 mg PO DAILY [facility] [place] Last Admin: 09/11/20 09:14 Dose: 128 mg Documented by: Magnesium Hydroxide (Magnesium Hydroxide 30 Ml Udc) 30 ml PO .PRN X 1 PRN PRN Reason: Constipation Melatonin (Melatonin 3 Mg Tablet) 3 mg PO QHS [facility] Last Admin: 09/10/20 21:48 Dose: 3 mg Documented by: Multivitamins (Multivitamins,Therapeutic Tablet) [facility] Last Admin: 09/11/20 09:12 Dose: 1 tablet Documented by: Oxycodone HCl (Oxycodone 5 Mg Tablet) 5 mg PO Q4H PRN PRN PRN Reason: Pain Score 1-10 Last Admin: 09/10/20 14:39 Dose: 5 mg Documented by: Paroxetine HCl (Paroxetine Cr 12.5 Mg Tablet) 37.5 mg PO DAILY [facility] Last Admin: 09/11/20 09:14 Dose: 37.5 mg Documented by: Ramipril (Ramipril 10 Mg Capsule) 10 mg PO DAILY [facility] [place] Last Admin: 09/11/20 09:12 Dose: 10 mg Documented by: Fluticasone/Salmeterol (Fluticasone/Salmeterol 232-14 Inhaler) 1 puff IH Q12 [facility] Last Admin: 09/11/20 09:13 Dose: 1 puff Documented by: Senna/Docusate Sodium (Senna/Docusate Sodium 1 Tablet) 2 tablet PO BID [facility] Last Admin: 09/11/20 09:14 Dose: 2 tablet Documented by: Sodium Chloride (0.9% Saline Lock 10 Ml Syringe) 10 - 30 ml IV BID [facility] [place] Last Admin: 09/11/20 09:12 Dose: Not Given Documented by: Umeclidinium [place] (Umeclidinium [place] Inhaler) 1 puff IH DAILY [facility] [place] Last Admin: 09/11/20 09:13 Dose: 1 puff Documented by: Clinical Impression(s) from Imaging Studies Chest X-Ray 09/11/20 11:10 IMPRESSION: Bilateral infiltrates as described superimposed on hyperinflation and emphysematous changes worse in the upper lobes. Electronically Signed: Shreyas Westbrook, at 11:27 EST , Service support , Chest CTA 09/11/20 14:56 IMPRESSION: Diffuse emphysematous changes with scarring at the lung bases and bronchiectasis worse in the left lower lobe with findings suggestive of a superimposed infiltrate in the posteromedial segment of the left lower lobe. There is no evidence of pulmonary embolism. Electronically Signed: Shreyas Westbrook, at 15:50 EST , Service support , Assessment/Plan All Active Problems (Last Reviewed 09/10/20 @ 13:[address] Gisel Malik, DO) Closed right hip fracture (Acute) Physical debility (Acute) Acute blood loss anemia (Acute) Dehydration (Acute) Tachycardia (Acute) RECOMMENDATIONS: 1. Diuretic challenge. May need additional dose following blood transfusion if given 2. Continue bronchodilators and steroids for now 3. Wean oxygen as tolerated 4. Attempt to obtain old PFT from Dr. Joy's office IMPRESSIONS: 1. Acute on chronic hypoxic respiratory failure Unclear etiology. Patient does not have any pulmonary embolism on CTA of the chest, but does have extensive emphysematous changes. Patient also has dependent alveolar groundglass opacity suggestive of possible pulmonary edema. Patient did recently have surgery, so an element of congestive heart failure would be a consideration. Patient is not reporting significant change in sputum or cough frequency to suggest a COPD exacerbation, but patient is already on an inhaler and IV steroids. Recommend a challenge of diuretic therapy. If patient is significantly improved by tomorrow, steroids can likely be discontinued and continued on inhalers only. Await results of the viral panel. Respiratory status is likely exacerbated by anemia. Patient also likely has an element of pulmonary hypertension as pulmonary artery diameter is that of the aorta. Likely not necessary to obtain an echocardiogram as treatment would still be diuresis. 2. Acute blood loss anemia status post ORIF traumatic hip fracture/physical debility/hypertension/hyperlipidemia/anxiety/depression/advanced age Complicates care, management, recovery and prognosis. Patient is scheduled to get a blood transfusion. Patient may require an additional dose of Lasix following transfusion. Defer to rehab staff. Okay to continue baseline medications from my perspective. Inpatient E&M: 26414 Init Hosp L2
[2020-09-11] MEDS: Furosemide 20 MG/2 ML VIAL IV (16:55)
[2020-09-11 17:04] LABS: Procalcitonin 0.29 ng/mL (0.00-0.09)
--- NOTE | 2020-09-11 17:08 | PCM.RX.CS ---
Consult Pharmacy has been consulted to manage selected antiobiotic: Vancomycin Type of Consult: New start Labs: Sodium 141 mmol/L (136-145) 09/11/20 04:58 Potassium 4.0 mmol/L (3.5-5.1) 09/11/20 04:58 Chloride 111 mmol/L (98-107) H 09/11/20 04:58 Carbon Dioxide 26.0 mmol/L (21.0-32.0) 09/11/20 04:58 Anion Gap 4 (5-15) L 09/11/20 04:58 BUN 20 mg/dL (7-18) H 09/11/20 04:58 Creatinine 0.69 mg/dL (0.55-1.02) 09/11/20 04:58 Est GFR (MDRD) Af Amer 105 mL/min (>60) 09/11/20 04:58 Est GFR (MDRD) Non-Af 86 mL/min (>60) 09/11/20 04:58 BUN/Creatinine Ratio 28.9 RATIO (10-20) H 09/11/20 04:58 Glucose 100 mg/dL (74-106) 09/11/20 04:58 Microbiology: Microbiology 09/10/20 14:12 Urine, Catheterized Urine Culture - Preliminary Culture exhibits no growth. 09/11/20 13:25 Mucosa - Nose SARS-CoV-2 Antigen (Rapid) - Final 09/11/20 08:45 Stool Stool Occult Blood (CAIT) - Final Goal Trough: 15-20 mcg/mL Pharmacy Plan for Drug Dosing: NEW START IV VANCOMYCIN Consulting Physician: Dr. Malik Indication: Respiratory failure/ developing PNA? per progress note Goal Trough: 15-20 SrCr:0.69 (used 0.8 for CrCl) CrCl: 45.6mL/min Comments: initial dose 750mg IV x1 given 09/11/20 @1646. Vancomcyin Dose: 500mg IV Q12hr to start 09/12/20 @0500 Pending Level: 09/13/20 @0430 (Prior to 4th total dose per protocol) Pharmacy Service will continue to monitor and adjust dosing as required.
[2020-09-11 18:25] LABS: Reflex Lactate? Y
[2020-09-11 19:24] LABS: Lactic Acid 1.1 mmol/L (0.4-1.9)
[2020-09-11] MEDS: MELATONIN 3 MG TABLET PO (20:53)
[2020-09-12 00:15] VITALS: BP 137/72; PULSE 87; RESP 16; TEMP 37; O2SAT 95
[2020-09-12] MEDS: Acetaminophen 500 MG Tablet 1000 MG PO ×3 (05:17→19:55)
[2020-09-12] MEDS: Arthritis Pain Compound 60 CLICK TUBE TOPICAL ×3 (05:18→19:53)
[2020-09-12] MEDS: Vancomycin IV 500 MG/100 ML BAG 100 MG IV ×2 (05:18→18:01)
[2020-09-12 06:07] VITALS: O2SAT 93
[2020-09-12 06:51] LABS: Absolute Neutrophil Count 11.3 X10^3/uL (2.0-7.7); Basophil# 0.02 X10^3/uL; Basophil% 0.2 % (0-1); Hematocrit 30.6 % (37-47); Hemoglobin 10.2 g/dL (12.0-15.0); Lymphocyte % 6.8 % (19-41); Mean Corp Hgb Conc 33.3 g/dL (32-36); Mean Corpuscular Hgb 32.3 pg (27.0-32.0); Mean Corpuscular Volume 96.8 fL (81-99); Mean Platelet Vol. 11.4 fl (6.2-12.0); Monocyte# 0.86 X10^3/uL; Monocyte% 6.5 % (0-10); NRBC Flagged by Analyzer 0 % (0-5); Neutrophil # 11.29 X10^3/uL (2.7-7.7); Platelet Count 226 K/mm3 (150-450); RBC Distribution Width CV 15.1 % (11.6-14.6); Red Blood Count 3.16 M/mm3 (4.2-5.4); White Blood Count 13.1 K/mm3 (4.4-11.0)
[2020-09-12 07:19] LABS: AST(SGOT) 25 U/L (15-37); Alanine Aminotransfer ALT/SGPT 17 U/L (13-56); Albumin, Serum 2.4 g/dL (3.2-5.0); Alkaline Phosphatase 70 U/L (45-117); Anion Gap 5 (5-15); BUN 13 mg/dL (7-18); Bilirubin, Direct 0.22 mg/dL (0.00-0.30); Calcium,Total 8.1 mg/dL (8.5-10.1); Chloride 109 mmol/L (98-107); Creatinine, Serum 0.76 mg/dL (0.55-1.02); EST Glomerular Filtration Rate 77 mL/min (>60); Est Glom Filt Rate - Afr Amer 93 mL/min (>60); Globulin 3.7 g/dL (2.2-4.2); Glucose 136 mg/dL (74-106); Phosphorus 1.8 mg/dL (2.5-4.9); Potassium 3.9 mmol/L (3.5-5.1); Protein, Total 6.1 g/dL (6.4-8.2); Sodium Level 141 mmol/L (136-145)
--- NOTE | 2020-09-12 08:54 | PCM.PN.BLA ---
Progress Note Day #2 vancomycin and Levaquin Mehnaz was seen on team rounds today. Her daughter Piper participated by phone. Remains afebrile. Heart rate is improved and last night at midnight was down to 87. She is currently 93% on a 4 L nasal cannula. Fluid balance on 09/11/2020 was +[phone]. She had 1300 cc of urine out after 20 mg of IV Lasix. All lab was personally reviewed. Hemoglobin today is 10.2, up from 7.5 after 2 units of packed red blood cells. White blood cell count today is elevated at 13.1 however this may be due to the intravenous Decadron. Platelets are within normal limits. D-dimer yesterday was elevated at 1.71 but CTA of the chest was negative for pulmonary emboli. It is positive for evidence of interstitial fibrosis and extensive emphysematous changes. She also was found to have pneumonia on the left side. Creatinine is stable at 0.76 today and the BUN is 13. Potassium is 3.9. Glucose is elevated at 136 but this is likely secondary to steroids. Lactic acid yesterday was 2.3 but the follow-up was normal at 1.1. Phosphorus is still low at 1.8 today, but up from 1.3 following supplementation. Calcium corrected for hypoalbuminemia is within normal limits. Her calcitonin yesterday was increased at 0.29. Troponin was elevated at 0.053 yesterday but today is within normal limits at 0.021. The EKG showed no significant ST elevation or depression. I reviewed Dr. Maguire's consult and appreciate his input. Mehnaz tells me that she is feeling better today. Cough is less and she is not SOB sitting in the chair. She denies CP. No calf pain. She was able to ambulate 112 feet today.....much improved over the preceding 2 days. Alert and oriented X 3, pleasant and in no apparent distress sitting in the recliner at the bedside. she has pursed lip breathing and mild conversational dyspnea with long sentences. There is no accessory muscle use today. there is improved air exchange today and the crackles in the Left base are minimal today. No wheezes. she has not had to have an Albuterol aerosol. H-RRR today and the HR is in the 80's. She has better color in her face today and is no longer pale Better cap refill today no peripheral edema, no calf tenderness no rashes, incision is intact with no purulent DC and no significant apolonia-wound erythema Impressions 1. POD # 4 - S/P R VIK for fx of the R femoral neck with severe OA of the hip 2. Sepsis due to HAP - could be due to aspiration post operatively when she had AMS? W/U for COVID negative 3. NSTEMI type II 4. Acute CHF due to NSTEMI which was due to increased oxygen demand in pt with severe hypoxic respiratory failure, severe anemia and PNA. Resolved today. CHF not due to volume OL.....due to ischemia 5. severe emphysema and interstitial fibrosis 6. Acute on chronic hypoxic respiratory failure secondary to pneumonia and high-output congestive heart failure 7. Hypophosphatemia Check an MRSA nasal swab and if it is negative will discontinue the VAnco and continue with Levaquin and add Doxy or Azithromycin. Started oral phosphorus supplement and recheck phosphorus on Wednesday. Supplement potassium to keep the potassium around 4 Consider a pharmacologic stress test at some point to evaluate the coronaries? Will defer this decision to Dr. Lara..... Cardiac catheterization done in October 2018 showed no significant coronary artery disease. Continue therapy. May need to increase the O2 when she is exerting herself. She will follow up with Dr. Joy post DC STROKE Vital Signs/Narrative: Vital Signs Pulse Ox 09/12/20 06:07 93 Inpatient E&M: 43160 Subs Hosp L2
[2020-09-12 09:10] VITALS: BP 151/83; PULSE 95; RESP 18; TEMP 36.8; O2SAT 94
[2020-09-12] MEDS: Multivitamins,Therapeutic Tablet 1 TABLET PO (09:15)
[2020-09-12] MEDS: Aspirin 81 MG TAB.CHEW PO (09:15)
[2020-09-12] MEDS: Calcium (Elemental) 500 MG Tablet PO (09:16)
[2020-09-12] MEDS: Ramipril 10 MG Capsule PO (09:17)
[2020-09-12] MEDS: Atorvastatin Calcium 40 MG Tablet PO ×2 (09:18→19:54)
[2020-09-12] MEDS: Isosorbide Mononitrate 30 MG Tablet PO (09:18)
[2020-09-12] MEDS: Fluticasone/Salmeterol 232-14 Inhaler 1 PUFF IH ×2 (09:18→19:53)
[2020-09-12] MEDS: Umeclidinium Bromide Inhaler 1 PUFF IH (09:18)
[2020-09-12] MEDS: busPIRone 15 MG TABLET PO (09:18)
[2020-09-12] MEDS: Enoxaparin 30 MG/0.3 ML Syringe SC (09:18)
[2020-09-12] MEDS: PARoxetine CR 12.5 MG Tablet 37.5 MG PO (09:19)
[2020-09-12] MEDS: Famotidine 20 MG Tablet PO (09:19)
[2020-09-12] MEDS: Magnesium Chloride 64 MG Delay Rel.Tablet 128 MG PO (09:19)
[2020-09-12] MEDS: Senna/Docusate Sodium 1 Tablet 2 TABLET PO ×2 (09:19→19:55)
[2020-09-12] MEDS: dexAMETHasone 10 MG/ML Vial 6 MG IV (11:42)
--- NOTE | 2020-09-12 11:43 | CASEMGMT ---
Social Work IDT met with patient and dtr via conference call for Team meeting. Discussed patient's progress in therapy. Pt is ambulating 117ft at her farthest using more natural gait pattern with FWW. Pt is mod for bed mobility, CGA for tx, completed 2 small steps. Pt is min for bathing, set up for UE dressing, min for LE dressing. ST is working on swallowing. Pt is on IV steroids and fluids, monitoring pain, pt using purewick, sleeping okay. Pt's dressing will be removed tomorrow. Explained Medicare approved 15 days with EDC 09/24. Will ReTeam next week. Will continue to follow. Colleen Prince AGRONOMIST VOTING MACHINE REPAIRER
[2020-09-12] MEDS: Na Biphos/Potassium Phosphate PACKET 1 PACKET PO ×2 (14:03→19:54)
--- NOTE | 2020-09-12 15:49 | PN_ITS ---
Patient Problems: Active and Suspected Problems (Last Reviewed 09/10/20 @ 13:[address] Gisel Malik, DO) Closed right hip fracture (Acute) Physical debility (Acute) Secondary to recent right hip fracture and subsequent ORIF on 09/08/2020 Acute blood loss anemia (Acute) Dehydration (Acute) Tachycardia (Acute) Subjective: Patient did well overnight. No acute issues were reported. Patient felt subjectively improved today during my examination. Patient was able to participate with therapy. Cough was improved. No significant production was reported. - Physical Exam Vitals/I&O's: Vital Signs Temp Pulse Resp BP Pulse Ox 36.8 C 95 18 151/83 H 94 09/12/20 09:10 09/12/20 09:10 09/12/20 09:10 09/12/20 09:10 09/12/20 09:10 Oxygen Flow Rate (L/min) 4 Oxygen Delivery Method Nasal Cannula Weight: 55.7 kg Body Mass Index (BMI) 20.6 Intake and Output for Last 24 Hours 09/10/20 09/11/20 09/12/20 23:59 23:59 23:59 Intake Total 1250 / 1250 4151.63 / 4151.63 846.7033 / 846.7033 Output Total 700 / 700 1300 / 1300 Balance 550 / 550 2851.63 / 2851.63 846.7033 / 846.7033 General: Alert, Oriented x3, Cooperative, - - No conversational dyspnea HEENT: Atraumatic, PERRLA, EOMI, Normocephalic, - - No scleral icterus or injection noted Oral: Moist Mucosa, No Gingival or Mucosal Lesions/ Ulcerations Neck: Supple, No JVD, No Nodes, Trachea Midline Lungs: No rhonchi, No wheeze, No rales, Diminished, - - Symmetric expansion. Increased AP diameter. Cardiovascular: Regular rate, Regular Rhythm, Normal S1, Normal S2, No murmurs, No rub noted, No Gallop Abdomen: Bowel Sounds Present, Soft, Non Tender, Non-Distended Extremities: No clubbing, No cyanosis, No edema, - - Ecchymosis in right AC Skin: - - Dermal atrophy noted Musculoskeletal: No Tenderness to Palpation of Joints or Extremities Lymphatic: No Cervical, Supraclavicular, or Inguinal Adenopathy Neurological: Cranial nerves II-XII grossly intact, Neuro grossly intact Psych/Mental Status: Alert and oriented to time, place, person, mood and affect Microbiology Past 72 Hours 09/10/20 14:05 Urine, Random Streptococcus pneumoniae Antigen (M - Final 09/10/20 14:05 Urine Catheter - Catheter Legionella Antigen - Final 09/11/20 14:30 Mucosa - Nasopharyngeal Respiratory Panel (PCR) - Final 09/10/20 14:12 Urine, Catheterized Urine Culture - Preliminary Culture exhibits no growth. 09/11/20 13:25 Mucosa - Nose SARS-CoV-2 Antigen (Rapid) - Final 09/11/20 08:45 Stool Stool Occult Blood (CAIT) - Final Laboratory Results 09/11/20 10:57: Blood Type B POSITIVE, Antibody Screen NEGATIVE, Crossmatch See Detail 09/11/20 14:05: Procalcitonin 0.29 H 09/11/20 18:47: Lactic Acid 1.1 09/12/20 06:30: WBC 13.1 H, RBC 3.16 L, Hgb 10.2 L, Hct 30.6 L, MCV 96.8 D, MCH 32.3 H, MCHC 33.3, RDW Std Deviation 53.0 H, RDW Coeff of Linette 15.1 H, Plt Count 226, MPV 11.4, Immature Gran % (Auto) 0.500, Neut % (Auto) 86.0 H, Lymph % (Auto) 6.8 L, [place] % (Auto) 6.5, Eos % (Auto) 0.0, Baso % (Auto) 0.2, Absolute Neuts (auto) 11.3 H, Absolute Lymphs (auto) 0.90, Nucleated RBC % 0 09/12/20 06:30: Sodium 141, Potassium 3.9, Chloride 109 H, Carbon Dioxide 27.0, Anion Gap 5, BUN 13, Creatinine 0.76, Estim Creat Clear Calc 36.50, Est GFR (MDRD) Af Amer 93, Est GFR (MDRD) Non-Af 77, BUN/Creatinine Ratio 17.0, Glucose 136 H, Calcium 8.1 L, Phosphorus 1.8 L, Total Bilirubin 0.70, Direct Bilirubin 0.22, AST 25, ALT 17, Alkaline Phosphatase 70, Total Protein 6.1 L, Albumin 2.4 L, Globulin 3.7 09/12/20 06:30: Troponin I 0.021 Current Medications Acetaminophen (Acetaminophen 500 Mg Tablet) 1,000 mg PO Q8 [facility] Last Admin: 09/12/20 13:24 Dose: 1,000 mg Documented by: Albuterol Sulfate (Albuterol 2.5 Mg/3 Ml Vial.Neb.) 2.5 mg INHALATION Q2H PRN PRN PRN Reason: WHEEZING Aspirin (Aspirin 81 Mg Tab.Chew) 81 mg PO DAILY@0800 [facility] Last Admin: 09/12/20 09:15 Dose: 81 mg Documented by: Atorvastatin Calcium (Atorvastatin Calcium 40 Mg Tablet) 40 mg PO DAILY [facility] Last Admin: 09/12/20 09:18 Dose: 40 mg Documented by: Bisacodyl (Bisacodyl 10 Mg Suppository) 10 mg RECTAL .PRN X 1 PRN PRN Reason: Constipation Buspirone HCl (Buspirone 15 Mg Tablet) 15 mg PO DAILY [facility] Last Admin: 09/12/20 09:18 Dose: 15 mg Documented by: Calcium Carbonate (Calcium (Elemental) 500 Mg Tablet) 500 mg PO BIDCM [facility] Last Admin: 09/12/20 09:16 Dose: 500 mg Documented by: Cholecalciferol (Cholecalciferol (Vit D3) 1,000 Unit (25mcg)) 500 unit PO DAILY [facility] Last Admin: 09/12/20 09:20 Dose: 500 unit Documented by: Compound Med (Arthritis Pain Compound 60 Click Tube) 0 click TOPICAL TID [facility]; Protocol Last Admin: 09/12/20 13:24 Dose: 2 click Documented by: Enoxaparin Sodium (Enoxaparin 30 Mg/0.3 Ml Syringe) 30 mg SC DAILY [facility] Last Admin: 09/12/20 09:18 Dose: 30 mg Documented by: Famotidine (Famotidine 20 Mg Tablet) 20 mg PO DAILY [facility] Last Admin: 09/12/20 09:19 Dose: 20 mg Documented by: Furosemide (Furosemide 20 Mg/2 Ml Vial) 20 mg IV X1 ONE Stop: 09/12/20 15:45 Levofloxacin (Levaquin Iv) 750 mg in 150 mls @ 100 mls/hr IV Q48 [facility] Last Infusion: 09/11/20 16:46 Dose: Infused Documented by: Vancomycin IV Pharmacy to Dose (1 ea/ Sodium Chloride) 500 mls @ 250 mls/hr IV PRN PRN; Protocol PRN Reason: Rx to Dose Vancomycin HCl () 500 mg in 100 mls @ 100 mls/hr IV Q12H [facility] Last Infusion: 09/12/20 07:22 Dose: Infused Documented by: Isosorbide Mononitrate (Isosorbide Mononitrate 30 Mg Tablet) 30 mg PO DAILY [facility] Last Admin: 09/12/20 09:18 Dose: 30 mg Documented by: Lactobacillus Acidophilus (Lactobacillus Acidophilus) 1 tablet PO DAILY [facility] Last Admin: 09/12/20 10:34 Dose: 1 tablet Documented by: Magnesium Chloride (Magnesium Chloride 64 Mg Delay Rel.Tablet) 128 mg PO DAILY [facility] Last Admin: 09/12/20 09:19 Dose: 128 mg Documented by: Magnesium Hydroxide (Magnesium Hydroxide 30 Ml Udc) 30 ml PO .PRN X 1 PRN PRN Reason: Constipation Melatonin (Melatonin 3 Mg Tablet) 3 mg PO QHS [facility] Last Admin: 09/11/20 20:53 Dose: 3 mg Documented by: Methylprednisolone (Methylprednisolone Dosepak 4 Mg Box) 16 mg PO 1700 [facility]; Taper Stop: 09/17/20 08:59 Multivitamins (Multivitamins,Therapeutic Tablet) [facility] Last Admin: 09/12/20 09:15 Dose: 1 tablet Documented by: Oxycodone HCl (Oxycodone 5 Mg Tablet) 5 mg PO Q4H PRN PRN PRN Reason: Pain Score 1-10 Last Admin: 09/10/20 14:39 Dose: 5 mg Documented by: Paroxetine HCl (Paroxetine Cr 12.5 Mg Tablet) 37.5 mg PO DAILY [facility] Last Admin: 09/12/20 09:19 Dose: 37.5 mg Documented by: Potassium Chloride (Potassium Chloride 20 Meq Tablet) 20 meq PO Q6H [facility] Stop: 09/12/20 18:16 Last Admin: 09/12/20 13:24 Dose: 20 meq Documented by: Potassium Phos/Sodium Phos (Na Biphos/Potassium Phosphate Packet) 1 packet PO TID [facility] Stop: 09/16/20 06:01 Last Admin: 09/12/20 14:03 Dose: 1 packet Documented by: Ramipril (Ramipril 10 Mg Capsule) 10 mg PO DAILY [facility] Last Admin: 09/12/20 09:17 Dose: 10 mg Documented by: Fluticasone/Salmeterol (Fluticasone/Salmeterol 232-14 Inhaler) 1 puff IH Q12 [facility] Last Admin: 09/12/20 09:18 Dose: 1 puff Documented by: Senna/Docusate Sodium (Senna/Docusate Sodium 1 Tablet) 2 tablet PO BID [facility] Last Admin: 09/12/20 09:19 Dose: 2 tablet Documented by: Sodium Chloride (0.9% Saline Lock 10 Ml Syringe) 10 - 30 ml IV BID PRN PRN Reason: flush Umeclidinium [place] (Umeclidinium [place] Inhaler) 1 puff IH DAILY [facility] Last Admin: 09/12/20 09:18 Dose: 1 puff Documented by: Clinical Impression(s) from Imaging Studies Chest CTA 09/11/20 14:56 IMPRESSION: Diffuse emphysematous changes with scarring at the lung bases and bronchiectasis worse in the left lower lobe with findings suggestive of a superimposed infiltrate in the posteromedial segment of the left lower lobe. There is no evidence of pulmonary embolism. Electronically Signed: Shreyas Westbrook, at 15:50 EST , Service support , Medical Necessity - Tobacco Use Smoking Status: Former smoker - She quit in 1994 Tobacco Use: Non-smoker Assessment/Plan All Active Problems (Last Reviewed 09/10/20 @ 13:[address] Gisel Malik, DO) Closed right hip fracture (Acute) Physical debility (Acute) Acute blood loss anemia (Acute) Dehydration (Acute) Tachycardia (Acute) RECOMMENDATIONS: 1. Consider continued diuretic therapy for another 24 hours 2. Continue bronchodilators 3. Wean oxygen as tolerated 4. Discontinue antibiotics and steroids by tomorrow if patient continues to improve and has no fever IMPRESSIONS: 1. Acute on chronic hypoxic respiratory failure Unclear etiology. Rapid improvement following diuretic therapy would be suggestive of an element of fluid overload. It is unclear if this is secondary to a type II NSTEMI secondary to anemia versus volume associated with surgical intervention. Reasonable to continue antibiotics and steroids for another 24 hours. However, patient has not had any fever. Clinical suspicion for leukocytosis secondary to steroids. Patient should likely have a walking oximetry prior to discharge from rehab. Patient can follow-up with Dr. Joy as an outpatient. Please call with any further complications while in rehab. We will follow peripherally. 2. Acute blood loss anemia status post ORIF traumatic hip fracture/physical debility/hypertension/hyperlipidemia/anxiety/depression/advanced age Complicates care, management, recovery and prognosis. Patient is scheduled to get a blood transfusion. Patient may require an additional dose of Lasix following transfusion. Defer to rehab staff. Okay to continue baseline medications from my perspective. Inpatient E&M: [id number] Subs Hosp L2
--- NOTE | 2020-09-12 15:54 | NURSING ---
Spoke with Kathy mcmnaus if pt is still here she will need xrays of hip on 09/23 and will need to f/u at office on 10/21
[2020-09-12] MEDS: Furosemide 20 MG/2 ML VIAL IV (16:13)
[2020-09-12] MEDS: 0.9% Saline Lock 10 ML Syringe IV ×2 (16:13→17:53)
[2020-09-12] MEDS: MethylPREDNISolone DosePak 4 MG BOX PO ×2 (16:14→19:54)
[2020-09-12] MEDS: MELATONIN 3 MG TABLET PO (19:54)
[2020-09-12 20:06] VITALS: BP 138/73; PULSE 91; RESP 18; TEMP 37.1; O2SAT 94
[2020-09-13 04:45] LABS: Anion Gap 4 (5-15); BUN 19 mg/dL (7-18); BUN/Creat Ratio 23.1 RATIO (10-20); Calcium,Total 8.2 mg/dL (8.5-10.1); Chloride 110 mmol/L (98-107); Creatinine, Serum 0.82 mg/dL (0.55-1.02); EST Glomerular Filtration Rate 71 mL/min (>60); Est Glom Filt Rate - Afr Amer 85 mL/min (>60); Estimated Creatinine Clearance 44.51 ml/min; Glucose 136 mg/dL (74-106); Magnesium 2.1 mg/dL (1.6-2.6); Phosphorus 2.4 mg/dL (2.5-4.9); Potassium 4.3 mmol/L (3.5-5.1); Sodium Level 143 mmol/L (136-145)
[2020-09-13 04:47] LABS: Vancomycin, Trough Level 9.9 ug/mL (5.0-15.0)
[2020-09-13] MEDS: Na Biphos/Potassium Phosphate PACKET 1 PACKET PO ×3 (05:01→20:10)
[2020-09-13] MEDS: Vancomycin IV 500 MG/100 ML BAG 100 MG IV (05:01)
[2020-09-13] MEDS: Acetaminophen 500 MG Tablet 1000 MG PO ×3 (05:01→20:10)
[2020-09-13] MEDS: Arthritis Pain Compound 60 CLICK TUBE TOPICAL ×3 (05:02→20:13)
[2020-09-13] MEDS: 0.9% Saline Lock 10 ML Syringe IV ×3 (05:06→17:08)
--- NOTE | 2020-09-13 05:14 | PCM.RX.CS ---
Consult Pharmacy has been consulted to manage selected antiobiotic: Vancomycin Type of Consult: Follow-up Suspected Infection: Pneumonia Prior Doses of Antibiotics Received/Current Regimen: Medications Vancomycin HCl 750 mg/ Sodium (Chloride) 265 mls @ 250 mls/hr IV Q12H [facility]AN Vancomycin HCl () 500 mg in 100 mls @ 100 mls/hr IV Q12H [facility]AN Stop: 09/13/20 06:02 Last Admin: 09/13/20 05:01 Dose: 100 mls/hr Labs: Sodium 143 mmol/L (136-145) 09/13/20 04:22 Potassium 4.3 mmol/L (3.5-5.1) 09/13/20 04:22 Chloride 110 mmol/L (98-107) H 09/13/20 04:22 Carbon Dioxide 29.0 mmol/L (21.0-32.0) 09/13/20 04:22 Anion Gap 4 (5-15) L 09/13/20 04:22 BUN 19 mg/dL (7-18) H 09/13/20 04:22 Creatinine 0.82 mg/dL (0.55-1.02) 09/13/20 04:22 Est GFR (MDRD) Af Amer 85 mL/min (>60) 09/13/20 04:22 Est GFR (MDRD) Non-Af 71 mL/min (>60) 09/13/20 04:22 BUN/Creatinine Ratio 23.1 RATIO (10-20) H 09/13/20 04:22 Glucose 136 mg/dL (74-106) H 09/13/20 04:22 Vancomycin Trough 9.9 ug/mL (5.0-15.0) 09/13/20 04:22 Microbiology: Microbiology 09/10/20 14:05 Urine, Random Streptococcus pneumoniae Antigen (M - Final 09/10/20 14:05 Urine Catheter - Catheter Legionella Antigen - Final 09/11/20 14:30 Mucosa - Nasopharyngeal Respiratory Panel (PCR) - Final 09/10/20 14:12 Urine, Catheterized Urine Culture - Preliminary Culture exhibits no growth. 09/11/20 13:25 Mucosa - Nose SARS-CoV-2 Antigen (Rapid) - Final 09/11/20 08:45 Stool Stool Occult Blood (CAIT) - Final Weight used for dosin.7 kg Estimated Creatinine Clearance: 44.5 Goal Trough: 15-20 mcg/mL Pharmacy Plan for Drug Dosing: Vancomycin trough level of 9.9 was below target range of 15-20. Will increase dose to 750mg q12h and re-draw trough prior to 4th dose of new regimen. Pharmacy Service will continue to monitor and adjust dosing as required. Follow-Up Labs: Trough Vancomycin Labs to be done on [date and time ordered]: 09-15-20 @6104
[2020-09-13 07:13] VITALS: O2SAT 96
[2020-09-13] MEDS: Fluticasone/Salmeterol 232-14 Inhaler 1 PUFF IH ×2 (08:10→20:12)
[2020-09-13] MEDS: Isosorbide Mononitrate 30 MG Tablet PO (08:11)
[2020-09-13] MEDS: Famotidine 20 MG Tablet PO (08:11)
[2020-09-13] MEDS: Enoxaparin 30 MG/0.3 ML Syringe SC (08:11)
[2020-09-13] MEDS: Magnesium Chloride 64 MG Delay Rel.Tablet 128 MG PO (08:11)
[2020-09-13] MEDS: Ramipril 10 MG Capsule PO (08:11)
[2020-09-13] MEDS: MethylPREDNISolone DosePak 4 MG BOX PO ×4 (08:11→20:10)
[2020-09-13] MEDS: Multivitamins,Therapeutic Tablet 1 TABLET PO (08:11)
[2020-09-13] MEDS: Senna/Docusate Sodium 1 Tablet 2 TABLET PO ×2 (08:11→20:10)
[2020-09-13] MEDS: PARoxetine CR 12.5 MG Tablet 37.5 MG PO (08:11)
[2020-09-13] MEDS: Aspirin 81 MG TAB.CHEW PO (08:11)
[2020-09-13] MEDS: busPIRone 15 MG TABLET PO (08:12)
[2020-09-13] MEDS: Umeclidinium Bromide Inhaler 1 PUFF IH (08:17)
[2020-09-13 09:42] VITALS: RESP 18; O2SAT 95
--- NOTE | 2020-09-13 09:46 | NURSING ---
Dressing removed to right hip per orders, pt tolerated well. steri strips present, most still intact. No drainage present.
[2020-09-13 10:00] VITALS: BP 149/83; PULSE 92; RESP 18; TEMP 36.5; O2SAT 95
[2020-09-13] MEDS: levoFLOXacin IV 750 MG/150 ML BAG 100 MG IV (10:00)
--- NOTE | 2020-09-13 10:00 | PCM.PN.BLA ---
Progress Note Day #3 Levaquin and Vancomycin Afebrile Blood pressure and heart rate are within normal limits. She is maintaining a pulse ox of 94 to 96% on 4 L nasal cannula. Respiratory rate is 18 and she has nonlabored breathing. No urine output was recorded on 09/12/2020 She had 20 mg of Lasix yesterday. She did not have a weight today. No problems reported by nursing PT/OT notes were reviewed. Medication list was reviewed. She was transitioned from IV steroid to a Medrol dosepak yesterday for acute exacerbation of COPD due to PNA. All lab was personally reviewed today. Vanco trough is 9.9. the lab set up a MRSA sputum culture rather than doing the rapid PCR. It has been ordered for today. Sodium is 143 today and the potassium is 4.3. Serum bicarb is 29. The BUN is 19 and the creatinine is 0.82 which is up from 0.69 on 09/11/2020. Phosphorus is 2.4 today, up from 1.8 yesterday. She is on a Neutra-Phos supplement now. alert and appropriate Still with crackles on the left posteriorly, no wheezes, Less tachypneic, no conversational dyspnea HRRR, no gallop abd - soft and NT no edema no tremor Incision is without erythema and without DC Impressions 1. acute on chronic hypoxic respiratory failure due to PNA + volume OL 2. chronic hypoxic respiratory failure 3. PNA - hospital acquired....suspect due to aspiration 4. hypophosphatemia 5. fall with R hip fx - S/P VIK on the R by Dr. Arreaga 6. debility due to above 7. NSTEMI type II due to stress of Acute respiratory failure daily weights Rapid MRSA PCR - DC the VAnco if the PCR is negative HH, BMP, Phos on Wednesday. Continue therapy. Convert to PO Levaquin 750 mg Q48H. Continue the Medrol Dosepak STROKE Vital Signs/Narrative: Vital Signs Resp Pulse Ox 09/13/20 09:42 18 95 09/13/20 07:13 96 Inpatient E&M: [id number] Subs Hosp L2
[2020-09-13 11:16] VITALS: O2SAT 94
[2020-09-13 12:13] LABS: M R Staph aureus DNA By PCR Negative (Negative); Probe Check PASS; Specimen Processing Control PASS
[2020-09-13 19:29] VITALS: BP 133/79; PULSE 90; RESP 18; TEMP 37.2; O2SAT 96
[2020-09-13] MEDS: MELATONIN 3 MG TABLET PO (20:10)
[2020-09-14 06:50] VITALS: O2SAT 96
[2020-09-14 07:00] VITALS: TEMP 37.8
[2020-09-14] MEDS: Acetaminophen 500 MG Tablet 1000 MG PO ×3 (07:02→22:05)
[2020-09-14] MEDS: Na Biphos/Potassium Phosphate PACKET 1 PACKET PO ×3 (07:02→22:05)
[2020-09-14] MEDS: Arthritis Pain Compound 60 CLICK TUBE TOPICAL ×3 (07:02→22:02)
[2020-09-14] MEDS: 0.9% Saline Lock 10 ML Syringe IV (07:03)
[2020-09-14] MEDS: Aspirin 81 MG TAB.CHEW PO (08:04)
[2020-09-14] MEDS: Multivitamins,Therapeutic Tablet 1 TABLET PO (08:04)
[2020-09-14] MEDS: MethylPREDNISolone DosePak 4 MG BOX PO ×4 (08:04→22:03)
[2020-09-14] MEDS: Isosorbide Mononitrate 30 MG Tablet PO (08:05)
[2020-09-14] MEDS: Ramipril 10 MG Capsule PO (08:05)
[2020-09-14] MEDS: Famotidine 20 MG Tablet PO (08:05)
[2020-09-14] MEDS: busPIRone 15 MG TABLET PO (08:06)
[2020-09-14] MEDS: Umeclidinium Bromide Inhaler 1 PUFF IH (08:06)
[2020-09-14] MEDS: Atorvastatin Calcium 40 MG Tablet PO (08:08)
[2020-09-14] MEDS: Magnesium Chloride 64 MG Delay Rel.Tablet 128 MG PO (08:08)
[2020-09-14] MEDS: Enoxaparin 30 MG/0.3 ML Syringe SC (08:09)
[2020-09-14] MEDS: PARoxetine CR 12.5 MG Tablet 37.5 MG PO (08:09)
[2020-09-14] MEDS: Fluticasone/Salmeterol 232-14 Inhaler 1 PUFF IH ×2 (08:12→22:05)
[2020-09-14 08:44] VITALS: BP 153/81; PULSE 82; RESP 20; TEMP 36.2; O2SAT 98
[2020-09-14 19:47] VITALS: BP 137/68; PULSE 91; RESP 16; TEMP 37.2; O2SAT 92
[2020-09-14 22:00] VITALS: PULSE 91; RESP 17; O2SAT 94
[2020-09-14] MEDS: MELATONIN 3 MG TABLET PO (22:05)
[2020-09-15] MEDS: Arthritis Pain Compound 60 CLICK TUBE TOPICAL ×3 (05:57→21:53)
[2020-09-15] MEDS: levoFLOXacin 750 MG Tablet PO (05:59)
[2020-09-15] MEDS: Acetaminophen 500 MG Tablet 1000 MG PO ×3 (06:00→22:01)
[2020-09-15] MEDS: Na Biphos/Potassium Phosphate PACKET 1 PACKET PO ×3 (06:13→21:55)
[2020-09-15 06:46] VITALS: O2SAT 97
[2020-09-15] MEDS: MethylPREDNISolone DosePak 4 MG BOX PO ×3 (08:02→21:54)
[2020-09-15] MEDS: Fluticasone/Salmeterol 232-14 Inhaler 1 PUFF IH ×2 (08:02→21:54)
[2020-09-15] MEDS: busPIRone 15 MG TABLET PO (08:03)
[2020-09-15] MEDS: Aspirin 81 MG TAB.CHEW PO (08:03)
[2020-09-15] MEDS: Magnesium Chloride 64 MG Delay Rel.Tablet 128 MG PO (08:03)
[2020-09-15] MEDS: Atorvastatin Calcium 40 MG Tablet PO (08:03)
[2020-09-15] MEDS: Ramipril 10 MG Capsule PO (08:03)
[2020-09-15] MEDS: Multivitamins,Therapeutic Tablet 1 TABLET PO (08:03)
[2020-09-15] MEDS: Famotidine 20 MG Tablet PO (08:05)
[2020-09-15] MEDS: Enoxaparin 30 MG/0.3 ML Syringe SC (08:06)
[2020-09-15] MEDS: PARoxetine CR 12.5 MG Tablet 37.5 MG PO (08:07)
[2020-09-15] MEDS: Isosorbide Mononitrate 30 MG Tablet PO (08:08)
[2020-09-15] MEDS: Umeclidinium Bromide Inhaler 1 PUFF IH (08:11)
[2020-09-15 08:30] VITALS: BP 155/85; PULSE 86; RESP 18; TEMP 36.6; O2SAT 96
--- NOTE | 2020-09-15 17:42 | NURSING ---
Patient very pleasant. Refused to get OOB today. Enjoyed reading book and watching football on TV.
[2020-09-15 19:36] VITALS: BP 130/75; PULSE 82; RESP 17; TEMP 36.6; O2SAT 94
[2020-09-15] MEDS: Senna/Docusate Sodium 1 Tablet 2 TABLET PO (21:56)
[2020-09-15 22:00] VITALS: PULSE 82; RESP 17; O2SAT 94
[2020-09-15] MEDS: MELATONIN 3 MG TABLET PO (22:02)
[2020-09-16 05:52] LABS: Hematocrit 41.2 % (37-47); Hemoglobin 13.2 g/dL (12.0-15.0)
[2020-09-16] MEDS: Na Biphos/Potassium Phosphate PACKET 1 PACKET PO (06:12)
[2020-09-16] MEDS: Acetaminophen 500 MG Tablet 1000 MG PO ×3 (06:12→20:44)
[2020-09-16] MEDS: Arthritis Pain Compound 60 CLICK TUBE TOPICAL ×3 (06:14→20:37)
[2020-09-16 06:19] LABS: Anion Gap 5 (5-15); BUN 22 mg/dL (7-18); Chloride 105 mmol/L (98-107); Creatinine, Serum 0.84 mg/dL (0.55-1.02); EST Glomerular Filtration Rate 69 mL/min (>60); Est Glom Filt Rate - Afr Amer 83 mL/min (>60); Estimated Creatinine Clearance 43.45 ml/min; Glucose 88 mg/dL (74-106); Phosphorus 4.2 mg/dL (2.5-4.9); Sodium Level 140 mmol/L (136-145)
[2020-09-16 07:30] VITALS: O2SAT 93
[2020-09-16] MEDS: Magnesium Chloride 64 MG Delay Rel.Tablet 128 MG PO (08:17)
[2020-09-16] MEDS: Atorvastatin Calcium 40 MG Tablet PO (08:17)
[2020-09-16] MEDS: MethylPREDNISolone DosePak 4 MG BOX PO ×2 (08:17→20:37)
[2020-09-16] MEDS: Calcium (Elemental) 500 MG Tablet PO ×2 (08:17→16:37)
[2020-09-16] MEDS: Famotidine 20 MG Tablet PO (08:17)
[2020-09-16] MEDS: busPIRone 15 MG TABLET PO (08:17)
[2020-09-16] MEDS: Enoxaparin 30 MG/0.3 ML Syringe SC (08:18)
[2020-09-16] MEDS: Aspirin 81 MG TAB.CHEW PO (08:18)
[2020-09-16] MEDS: Fluticasone/Salmeterol 232-14 Inhaler 1 PUFF IH ×2 (08:18→20:37)
[2020-09-16] MEDS: Umeclidinium Bromide Inhaler 1 PUFF IH (08:18)
[2020-09-16] MEDS: Ramipril 10 MG Capsule PO (08:18)
[2020-09-16] MEDS: Multivitamins,Therapeutic Tablet 1 TABLET PO (08:18)
[2020-09-16] MEDS: Isosorbide Mononitrate 30 MG Tablet PO (08:18)
[2020-09-16] MEDS: PARoxetine CR 12.5 MG Tablet 37.5 MG PO (08:27)
[2020-09-16 09:23] VITALS: BP 159/68; PULSE 80; RESP 16; TEMP 36.4; O2SAT 92
[2020-09-16 20:00] VITALS: BP 102/63; PULSE 89; RESP 16; TEMP 37.2; O2SAT 94
[2020-09-16] MEDS: 0.9% Saline Lock 10 ML Syringe IV (20:35)
[2020-09-16] MEDS: MELATONIN 3 MG TABLET PO (20:36)
[2020-09-16] MEDS: Senna/Docusate Sodium 1 Tablet 2 TABLET PO (20:36)
[2020-09-16 22:00] VITALS: PULSE 89; RESP 16; O2SAT 94
[2020-09-17] MEDS: Acetaminophen 500 MG Tablet 1000 MG PO ×3 (06:39→22:27)
[2020-09-17] MEDS: Arthritis Pain Compound 60 CLICK TUBE TOPICAL ×3 (06:42→22:28)
[2020-09-17] MEDS: Senna/Docusate Sodium 1 Tablet 2 TABLET PO (08:00)
[2020-09-17] MEDS: Ramipril 10 MG Capsule PO (08:00)
[2020-09-17] MEDS: Magnesium Chloride 64 MG Delay Rel.Tablet 128 MG PO (08:00)
[2020-09-17] MEDS: PARoxetine CR 12.5 MG Tablet 37.5 MG PO (08:01)
[2020-09-17] MEDS: busPIRone 15 MG TABLET PO (08:01)
[2020-09-17] MEDS: Multivitamins,Therapeutic Tablet 1 TABLET PO (08:01)
[2020-09-17] MEDS: Isosorbide Mononitrate 30 MG Tablet PO (08:01)
[2020-09-17] MEDS: Aspirin 81 MG TAB.CHEW PO (08:01)
[2020-09-17] MEDS: Famotidine 20 MG Tablet PO (08:01)
[2020-09-17] MEDS: Calcium (Elemental) 500 MG Tablet PO ×2 (08:01→16:12)
[2020-09-17] MEDS: Fluticasone/Salmeterol 232-14 Inhaler 1 PUFF IH ×2 (08:02→22:27)
[2020-09-17] MEDS: Umeclidinium Bromide Inhaler 1 PUFF IH (08:02)
[2020-09-17] MEDS: levoFLOXacin 750 MG Tablet PO (08:02)
[2020-09-17] MEDS: Enoxaparin 30 MG/0.3 ML Syringe SC (08:02)
[2020-09-17] MEDS: MethylPREDNISolone DosePak 4 MG BOX PO (08:02)
[2020-09-17] MEDS: Atorvastatin Calcium 40 MG Tablet PO (08:03)
[2020-09-17 08:43] VITALS: BP 132/78; PULSE 65; RESP 17; TEMP 36.8; O2SAT 95
[2020-09-17 19:20] VITALS: BP 92/59; PULSE 91; RESP 16; TEMP 36.4; O2SAT 97
[2020-09-17] MEDS: MELATONIN 3 MG TABLET PO (22:27)
[2020-09-18] MEDS: Arthritis Pain Compound 60 CLICK TUBE TOPICAL ×2 (05:26→20:30)
[2020-09-18] MEDS: Acetaminophen 500 MG Tablet 1000 MG PO ×3 (05:26→20:29)
[2020-09-18] MEDS: 0.9% Saline Lock 10 ML Syringe IV ×2 (05:38→20:31)
[2020-09-18 07:11] VITALS: O2SAT 96
[2020-09-18 07:30] VITALS: BP 126/76; PULSE 81; RESP 16; TEMP 36.2; O2SAT 95
[2020-09-18] MEDS: Multivitamins,Therapeutic Tablet 1 TABLET PO (07:59)
[2020-09-18] MEDS: Senna/Docusate Sodium 1 Tablet 2 TABLET PO ×2 (08:01→20:29)
[2020-09-18] MEDS: Famotidine 20 MG Tablet PO (08:02)
[2020-09-18] MEDS: Calcium (Elemental) 500 MG Tablet PO ×2 (08:02→16:30)
[2020-09-18] MEDS: busPIRone 15 MG TABLET PO (08:03)
[2020-09-18] MEDS: Aspirin 81 MG TAB.CHEW PO (08:03)
[2020-09-18] MEDS: PARoxetine CR 12.5 MG Tablet 37.5 MG PO (08:06)
[2020-09-18] MEDS: Magnesium Chloride 64 MG Delay Rel.Tablet 128 MG PO (08:08)
[2020-09-18] MEDS: Enoxaparin 30 MG/0.3 ML Syringe SC (08:08)
[2020-09-18] MEDS: Atorvastatin Calcium 40 MG Tablet PO (08:09)
[2020-09-18] MEDS: Fluticasone/Salmeterol 232-14 Inhaler 1 PUFF IH ×2 (08:09→20:30)
[2020-09-18] MEDS: Umeclidinium Bromide Inhaler 1 PUFF IH (08:09)
[2020-09-18] MEDS: Isosorbide Mononitrate 30 MG Tablet PO (08:09)
[2020-09-18] MEDS: Ramipril 10 MG Capsule PO (08:10)
--- NOTE | 2020-09-18 12:11 | PCM.PN.BLA ---
Progress Note Afebrile VSS Maintaining appropriate oxygen saturation on RA Oral intake is good Discussed with nursing - no problems that need addressed Reviewed the PT/OT/ST notes Medication list reviewed. The weight today is 117 pounds and 11-1/2 ounces which is down from a max of 125 pounds on 09/12/2020. she was 118 when she entered the hospital on 09/07/20 No complaints. She is wondering when she will be able to go home Alert and oriented X 3 Lungs are diminished but CTA, no tachypnea, no conversational dyspnea, tells me that she is not SOB with exertion.....this has been chronic at home and she gets hypoxic on 3 LPM at home with exertion.........when this happens she sits down and waits for the O2 to come back up.....sometimes it takes a while HRRR abd - soft and NT no calf tenderness and no edema Impressions 1. acute on chronic hypoxic respiratory failure due to PNA + volume OL.....she was diureses and the weight is down 8 lbs. 2. chronic hypoxic respiratory failure 3. PNA - hospital acquired....suspect due to aspiration. She received a 7 day course of antibiotics 4. hypophosphatemia-resolved 5. fall with R hip fx - S/P VIK on the R by Dr. Arreaga 6. debility due to above 7. NSTEMI type II due to stress of Acute respiratory failure 8. acute pulmonary edema due to volume OL Continue therapy Will discuss on TEAM rounds tomorrow.....I suspect she may be able to go home this weekend Inpatient E&M: [id number] [facility] Hosp L1
[2020-09-18 19:34] VITALS: BP 110/63; PULSE 84; RESP 18; TEMP 36.4; O2SAT 95
[2020-09-18] MEDS: MELATONIN 3 MG TABLET PO (20:30)
[2020-09-19] MEDS: Acetaminophen 500 MG Tablet 1000 MG PO ×3 (06:39→21:16)
[2020-09-19] MEDS: Arthritis Pain Compound 60 CLICK TUBE TOPICAL ×3 (06:40→21:06)
[2020-09-19 07:30] VITALS: BP 138/74; PULSE 90; RESP 18; TEMP 36.8; O2SAT 97
[2020-09-19] MEDS: Famotidine 20 MG Tablet PO (07:56)
[2020-09-19] MEDS: Fluticasone/Salmeterol 232-14 Inhaler 1 PUFF IH ×2 (07:56→21:16)
[2020-09-19] MEDS: Isosorbide Mononitrate 30 MG Tablet PO (07:56)
[2020-09-19] MEDS: Multivitamins,Therapeutic Tablet 1 TABLET PO (07:57)
[2020-09-19] MEDS: busPIRone 15 MG TABLET PO (07:57)
[2020-09-19] MEDS: Ramipril 10 MG Capsule PO (07:57)
[2020-09-19] MEDS: Magnesium Chloride 64 MG Delay Rel.Tablet 128 MG PO (07:57)
[2020-09-19] MEDS: PARoxetine CR 12.5 MG Tablet 37.5 MG PO (07:57)
[2020-09-19] MEDS: Aspirin 81 MG TAB.CHEW PO (07:57)
[2020-09-19] MEDS: Enoxaparin 30 MG/0.3 ML Syringe SC (07:58)
[2020-09-19] MEDS: Calcium (Elemental) 500 MG Tablet PO ×2 (07:58→15:39)
[2020-09-19] MEDS: Atorvastatin Calcium 40 MG Tablet PO (08:00)
[2020-09-19] MEDS: Umeclidinium Bromide Inhaler 1 PUFF IH (08:01)
--- NOTE | 2020-09-19 08:55 | PN_ITS ---
Progress Note Mehnaz was seen on TEAM rounds today. Her daughter Piper participated by phone. Afebrile VSS Maintaining appropriate oxygen saturation on a 4 LPM NC. She tells me that she is no longer short of breath with exertion since we increased the oxygen flow. She was chronically short of breath at home on 3 L/min and desaturated. Mehnaz denies chest pain, palpitations, nausea/vomiting/abdominal pain, dysuria, calf pain. She has a mild cough and describes it is her usual. It is not productive. She denies sore throat, rhinitis, sinus pain. Alert and oriented x3, appropriate, no apparent distress, sitting in the recliner watching TV. Lungs-diminished throughout...... no wheezing, no rales heard today. Heart-regular rate and rhythm, no gallop Abdomen-soft, nontender, nondistended, normal bowel sounds heard, no guarding with palpation No peripheral edema, no calf tenderness No rashes The incision is intact with no periincisional erythema and no discharge. Impression's 1. Physical debility secondary to recent right total hip replacement due to right femoral neck fracture sustained in a fall. 2. sepsis due to PNA - resolved 3. HAP - resolved. I suspect she may have aspirated when under the effects of anesthesia and pain medications 4. cognitive dysfunction with trouble word finding 5. severe COPD 6. Chronic hypoxic respiratory failure 7. Hypophosphatemia-resolved 8. NSTEMI type II due to stress associated with acute on chronic resp failure. Plan on DC for Wednesday She was made MOD I today Will order a follow up CXR in about 1 month to re-evaluate lungs after the PNA changes have completely resolved [facility] at [place] I have advised her to complete the form for the [facility] so that she can receive the COVID vaccine if we can not give her the initial injection at the hospital prior to DC STROKE Vital Signs/Narrative: Vital Signs Temp Pulse Resp BP Pulse Ox 09/19/20 07:30 98.3 F 90 18 138/74 H 97 Inpatient E&M: [id number] Subs Hosp L2
[2020-09-19 10:10] VITALS: O2SAT 96
--- NOTE | 2020-09-19 14:58 | CASEMGMT ---
Social Work IDT met with patient and dtr via conference call for Team meeting. Discussed patient's progress in therapy. Pt is SBA for tx, ambulating over 300ft on multiple surfaces with FWW at SBA, completed 5 steps SBA 2HR, walking pattern has improved. Pt is supervised for all ADLS, endurance has improved. ST is working on swallowing, memory and word finding. Pt is on a regular, soft bite sized textures, small bites/sips, distant supervision. Pt is using external memory strategies, but recommending dtr supervise finances and meds at [place]. Dtr agreeable. IDT agreeable to [place] 09/21. Pt requesting outpatient therapy at [facility]. Referral made for PT/OT/ST. Pt requesting 3-in-1 commode. Referral made to [facility]. Dtr to transport. 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
[2020-09-19 19:31] VITALS: BP 102/59; PULSE 75; RESP 17; TEMP 36.6; O2SAT 97
[2020-09-19] MEDS: MELATONIN 3 MG TABLET PO (21:18)
[2020-09-19] MEDS: Senna/Docusate Sodium 1 Tablet 2 TABLET PO (21:19)
[2020-09-19 22:00] VITALS: PULSE 75; RESP 18
[2020-09-20] MEDS: Arthritis Pain Compound 60 CLICK TUBE TOPICAL ×3 (06:45→21:46)
[2020-09-20] MEDS: Enoxaparin 30 MG/0.3 ML Syringe SC (06:46)
[2020-09-20] MEDS: Acetaminophen 500 MG Tablet 1000 MG PO ×3 (06:47→21:50)
[2020-09-20 07:06] VITALS: BP 149/73; PULSE 78; RESP 16; TEMP 36.8; O2SAT 96
[2020-09-20] MEDS: Aspirin 81 MG TAB.CHEW PO (10:38)
[2020-09-20] MEDS: Calcium (Elemental) 500 MG Tablet PO ×2 (10:38→17:16)
[2020-09-20] MEDS: Multivitamins,Therapeutic Tablet 1 TABLET PO (10:38)
[2020-09-20] MEDS: Isosorbide Mononitrate 30 MG Tablet PO (10:39)
[2020-09-20] MEDS: busPIRone 15 MG TABLET PO (10:39)
[2020-09-20] MEDS: Umeclidinium Bromide Inhaler 1 PUFF IH (10:39)
[2020-09-20] MEDS: Ramipril 10 MG Capsule PO (10:39)
[2020-09-20] MEDS: Fluticasone/Salmeterol 232-14 Inhaler 1 PUFF IH ×2 (10:39→21:50)
[2020-09-20] MEDS: Atorvastatin Calcium 40 MG Tablet PO (10:39)
[2020-09-20] MEDS: Famotidine 20 MG Tablet PO (10:40)
[2020-09-20] MEDS: PARoxetine CR 12.5 MG Tablet 37.5 MG PO (10:40)
[2020-09-20] MEDS: Magnesium Chloride 64 MG Delay Rel.Tablet 128 MG PO (10:40)
[2020-09-20] MEDS: Senna/Docusate Sodium 1 Tablet 2 TABLET PO ×2 (10:40→21:51)
[2020-09-20 20:23] VITALS: BP 111/56; PULSE 81; RESP 18; TEMP 36.7; O2SAT 96
[2020-09-20] MEDS: MELATONIN 3 MG TABLET PO (21:50)
[2020-09-21] MEDS: Acetaminophen 500 MG Tablet 1000 MG PO (06:28)
[2020-09-21 07:00] VITALS: BP 108/72; PULSE 84; RESP 20; TEMP 36.9; O2SAT 93
[2020-09-21] MEDS: Arthritis Pain Compound 60 CLICK TUBE TOPICAL (08:09)
[2020-09-21] MEDS: Multivitamins,Therapeutic Tablet 1 TABLET PO (09:01)
[2020-09-21] MEDS: Calcium (Elemental) 500 MG Tablet PO (09:01)
[2020-09-21] MEDS: Aspirin 81 MG TAB.CHEW PO (09:01)
[2020-09-21] MEDS: Fluticasone/Salmeterol 232-14 Inhaler 1 PUFF IH (09:02)
[2020-09-21] MEDS: busPIRone 15 MG TABLET PO (09:02)
[2020-09-21] MEDS: Ramipril 10 MG Capsule PO (09:02)
[2020-09-21] MEDS: Isosorbide Mononitrate 30 MG Tablet PO (09:03)
[2020-09-21] MEDS: Umeclidinium Bromide Inhaler 1 PUFF IH (09:04)
[2020-09-21] MEDS: Atorvastatin Calcium 40 MG Tablet PO (09:04)
[2020-09-21] MEDS: PARoxetine CR 12.5 MG Tablet 37.5 MG PO (09:05)
[2020-09-21] MEDS: Famotidine 20 MG Tablet PO (09:06)
[2020-09-21] MEDS: Senna/Docusate Sodium 1 Tablet 2 TABLET PO (09:06)
--- NOTE | 2020-09-21 10:15 | PCM.DC ---
- Discharge Diagnoses Current Active Problems: Current Active and Chronic Problems (Last Reviewed 09/10/20 @ 13:[address] Gisel Malik, DO) Closed right hip fracture (Acute) Former tobacco use (Chronic) She quit in 1994 COPD (chronic obstructive pulmonary disease) (Chronic) Anxiety and depression (Chronic) CKD (chronic kidney disease) (Chronic) ? unclear. The GFR came up to 86 with hydration. 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 Arreaga and physical therapy, May Shower, Use Walker Weight Bearing Status: Full weight bearing Call your doctor if your incision/area has: Increased Pain/ Swelling, Increased Redness, Foul Smelling Discharge, Swelling at the incision site Call your doctor if you observe: Fever of 101 or Higher, Inability to urinate, Inability to have a bowel movement, Shortness of breath, Dizziness, Fainting spells, Chest pain, Calf discomfort, Uncontrolled pain Suture Line Care: Avoid Pulling/Pushing, Avoid Pinching/Bending Cleanse incision/area with: Soap & Water Instructions: Hip Precautions Additional Instructions: 1. Remember the precautions for hip replacement. Do not cross your legs. Do not bend at the hip more than 90 degrees. No twisting. 2. Do the exercises given to you by the therapists at least once daily.........twice if you can. 3. There is a form online to fill out to get the COVID vaccine. Look up [facility] and it will direct you to the form. I discussed this with the pharmacist at the hospital and he is going to try and get you on the list to be vaccinated at the hospital the end of next week so you may be getting a call. 4. ALWAYS keep your oxygen saturation greater than 89%. If you need to turn the oxygen up with exercise that is OK. 5. Stay away from anyone who is sick! Always wear a mask when you are out in public and when you have visitors at home also Over 50% of people with COVID got it from an asymptomatic person so BE SAFE. 6. You will need to take a baby aspirin twice a day for 2 more weeks. This is to help prevent blood clots in the legs post hip replacement. After the next 2 weeks you can decrease the aspirin to once a day to prevent heart attacks and strokes. 7. If you have a change in cough, fever, chills, sweats or you are needing to turn the oxygen up go to the doctor........sooner rather than later. In patients with chronic lung disease getting treated as soon as possible when you are sick may prevent a hospital admission. 8. It has been a pleasure getting to know you Mehnaz. I love your spunk. If you have questions after you get home please do not hesitate to call me. My cell phone number is [phone]. My office number is [phone] and the number for the rehab unit is [phone]. Stay well Mehnaz! Allergies/Adverse Reactions: Allergies cefaclor [From Ceclor] Allergy (Verified 09/07/20 17:37) Hives Medications to take at Discharge Atorvastatin Calcium 40 mg PO DAILY 12/28/17 Isosorbide Mononitrate [Imdur] 30 mg PO DAILY 12/28/17 Multivitamin [Daily Multiple Vitamin] 1 tab PO DAILY 12/28/17 Paroxetine HCl [Paxil Cr] 37.5 mg PO DAILY 12/28/17 Ramipril [Altace] 10 mg PO DAILY 12/28/17 calcium carbonate 600 mg calcium (1,500 mg) tablet 600 mg PO BID tab 12/30/17 cholecalciferol (vitamin D3) 10 mcg (400 unit) capsule 400 unit PO QDAY 12/30/17 lactobacillus combination no.8 3 billion cell capsule 3,000 mmu cells PO QDAY 12/30/17 omega-3 fatty acids 1,000 mg capsule 1,000 mg PO QDAY 12/30/17 buspirone 15 mg tablet 15 mg PO DAILY 30 Days #60 tab 09/22/18 Fluticasone/Umeclidin/Vilanter [Trelegy Ellipta 100-62.5-25] 1 puff INHALATION DAILY 09/07/20 Famotidine [Pepcid] 20 mg PO BID 09/09/20 Fluticasone/Umeclidin/Vilanter [Trelegy Ellipta 100-62.5-25] 1 ea IH DAILY 09/09/20 Acetaminophen [Tylenol] 1,000 mg PO Q8 PRN #1 tab 09/21/20 Arthritis Pain Compound 0 click TOPICAL TID gm 09/21/20 Aspirin [Aspirin, Baby] 81 mg PO BIDCM #1 09/21/20 Magnesium Chloride [Slow-Mag] 71.5 mg PO BID #60 tablet. 09/21/20 The following prescriptions were given: Magnesium Chloride [Slow-Mag] 71.5 mg PO BID #60 tablet. Transmission Status: Received by [id number] Primary Care Physician: Nicci King DO [Primary Care Provider] - Test Results: Test results from this visit will be discussed in further detail at your follow-up appointment, if applicable. Please Follow Up With: Dr. Nicci King-PCP When: Wednesday Please Follow Up With: Dr. Agusto Arreaga-ortho When: Wednesday Please Follow Up With: Yohana Mckeon-UGIDO When: Wednesday Proposed Discharge Date: 09/21/20
[2020-09-21 10:34] VITALS: BP 108/72; PULSE 84; RESP 20; TEMP 36.9; O2SAT 93
--- NOTE | 2020-09-21 10:35 | DS.PCM_ITS ---
Discharge Date and Diagnosis - Problem List Patient Problems: Active and Suspected Problems (Last Reviewed 09/27/20 @ 13:[address] Ean Chirinos DO) Physical debility (Acute) Secondary to recent right hip fracture and subsequent ORIF on 09/08/2020 Dehydration (Acute) Tachycardia (Acute) Date of Admission: 09/11/20 Date of Discharge: 09/21/20 - Primary Discharge Diagnosis Acute Problems: Active Problems (Last Reviewed 09/10/20 @ 13:[address] Gisel Malik DO) Closed right hip fracture (Acute) Physical debility (Acute) Secondary to recent right hip fracture and subsequent Total ip replacement on 09/08/[address] Arreaga Acute blood loss anemia (Acute) Dehydration (Acute) Tachycardia (Acute) Hospital acquired anemia Hypomagnesemia Pulmonary edema due to volume overload - Secondary Discharge Diagnosis Chronic Problems: Chronic Problems (Last Reviewed 09/10/20 @ 13:[address] Gisel Malik DO) Former tobacco use (Chronic) She quit in 1994 COPD (chronic obstructive pulmonary disease) (Chronic) Anxiety and depression (Chronic) CKD (chronic kidney disease) (Chronic) ? unclear. The GFR came up to 86 with hydration. 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 Electronically Signed: Shreyas Westbrook, at 11:27 EST , Service support , Chest CTA 09/11/20 14:56 IMPRESSION: Diffuse emphysematous changes with scarring at the lung bases and bronchiectasis worse in the left lower lobe with findings suggestive of a superimposed infiltrate in the posteromedial segment of the left lower lobe. There is no evidence of pulmonary embolism. Electronically Signed: Shreyas Westbrook, at 15:50 EST , Service support , Laboratory Last Values WBC 13.1 K/mm3 (4.4-11.0) H 09/12/20 06:30 RBC 3.16 M/mm3 (4.2-5.4) L 09/12/20 06:30 Hgb 13.2 g/dL (12.0-15.0) 09/16/20 05:33 Hct 41.2 % (37-47) 09/16/20 05:33 MCV 96.8 fL (81-99) D 09/12/20 06:30 MCH 32.3 pg (27.0-32.0) H 09/12/20 06:30 MCHC 33.3 g/dL (32-36) 09/12/20 06:30 RDW Std Deviation 53.0 fl (35.1-43.9) H 09/12/20 06:30 RDW Coeff of [place] 15.1 % (11.6-14.6) H 09/12/20 06:30 Plt Count 226 K/mm3 (150-450) 09/12/20 06:30 MPV 11.4 fl (6.2-12.0) 09/12/20 06:30 Immature Gran % (Auto) 0.500 % (0.0-0.9) 09/12/20 06:30 Neut % (Auto) 86.0 % (47-70) H 09/12/20 06:30 Lymph % (Auto) 6.8 % (19-41) L 09/12/20 06:30 [place] % (Auto) 6.5 % (0-10) 09/12/20 06:30 Eos % (Auto) 0.0 % (0-5) 09/12/20 06:30 Baso % (Auto) 0.2 % (0-1) 09/12/20 06:30 Absolute Neuts (auto) 11.3 X10^3/uL (2.0-7.7) H 09/12/20 06:30 Absolute Lymphs (auto) 0.90 X10^3/uL (0.83-4.51) 09/12/20 06:30 Nucleated RBC % 0 % (0-5) 09/12/20 06:30 PT 13.9 SECONDS (11.7-14.9) 09/11/20 14:05 INR 1.1 09/11/20 14:05 Fibrinogen 592 mg/dl (203-444) H 09/11/20 14:05 D-Dimer Quant (PE/DVT) 1.71 FEU/ug/m (0.27-0.49) H* 09/11/20 14:05 Sodium 140 mmol/L (136-145) 09/16/20 05:33 Potassium 4.0 mmol/L (3.5-5.1) 09/16/20 05:33 Chloride 105 mmol/L (98-107) 09/16/20 05:33 Carbon Dioxide 30.0 mmol/L (21.0-32.0) 09/16/20 05:33 Anion Gap 5 (5-15) 09/16/20 05:33 BUN 22 mg/dL (7-18) H 09/16/20 05:33 Creatinine 0.84 mg/dL (0.55-1.02) 09/16/20 05:33 Estim Creat Clear Calc 43.45 ml/min 09/16/20 05:33 Est GFR (MDRD) Af Amer 83 mL/min (>60) 09/16/20 05:33 Est GFR (MDRD) Non-Af 69 mL/min (>60) 09/16/20 05:33 BUN/Creatinine Ratio 26.0 RATIO (10-20) H 09/16/20 05:33 Glucose 88 mg/dL (74-106) 09/16/20 05:33 Lactic Acid 1.1 mmol/L (0.4-1.9) 09/11/20 18:47 Calcium 9.0 mg/dL (8.5-10.1) 09/16/20 05:33 Phosphorus 4.2 mg/dL (2.5-4.9) 09/16/20 05:33 Magnesium 2.1 mg/dL (1.6-2.6) 09/13/20 04:22 Total Bilirubin 0.70 mg/dL (0.20-1.00) 09/12/20 06:30 Direct Bilirubin 0.22 mg/dL (0.00-0.30) 09/12/20 06:30 AST 25 U/L (15-37) 09/12/20 06:30 ALT 17 U/L (13-56) 09/12/20 06:30 Alkaline Phosphatase 70 U/L (45-117) 09/12/20 06:30 Lactate Dehydrogenase 267 U/L (84-246) H 09/11/20 04:58 Total Creatine Kinase 222 U/L (26-192) H 09/11/20 04:58 Troponin I 0.021 ng/mL (<0.045) 09/12/20 06:30 B-Natriuretic Peptide 470.4 pg/mL (0-100) H 09/11/20 04:58 Total Protein 6.1 g/dL (6.4-8.2) L 09/12/20 06:30 Albumin 2.4 g/dL (3.2-5.0) L 09/12/20 06:30 Globulin 3.7 g/dL (2.2-4.2) 09/12/20 06:30 Procalcitonin 0.29 ng/mL (0.00-0.09) H 09/11/20 14:05 Urine Color Yellow (Yellow) 09/10/20 14:12 Urine Clarity Clear (Clear) 09/10/20 14:12 Urine pH 6.0 (5.0 - 8.0) 09/10/20 14:12 Ur Specific [place] 1.020 (1.002-1.030) 09/10/20 14:12 Urine Protein 15 mg/dl (Negative) H 09/10/20 14:12 Urine Glucose (UA) Normal mg/dl (Normal) 09/10/20 14:12 Urine Ketones 15 mg/dl (Negative) H 09/10/20 14:12 Urine Occult Blood 25 /ul (Negative) H 09/10/20 14:12 Urine Nitrite Negative (Negative) 09/10/20 14:12 Urine Bilirubin Negative mg/dL (Negative) 09/10/20 14:12 Urine Urobilinogen Normal mg/dl (Normal) 09/10/20 14:12 Ur Leukocyte Esterase 25 /ul (Negative) H 09/10/20 14:12 Urine RBC 0-5 SEEN /hpf (0-5) 09/10/20 14:12 Urine WBC 0-5 SEEN /hpf (0-5) 09/10/20 14:12 Ur Squamous Epith Cells 0 SEEN /hpf (5-10) 09/10/20 14:12 Urine Bacteria 0 SEEN /hpf (None Seen) 09/10/20 14:12 Urine Mucus 0 SEEN /hpf (<or=2+) 09/10/20 14:12 Vancomycin Trough 9.9 ug/mL (5.0-15.0) 09/13/20 04:22 MRSA (PCR) Negative (Negative) 09/12/20 15:12 Blood Type B POSITIVE 09/11/20 10:57 Antibody Screen NEGATIVE 09/11/20 10:57 Crossmatch See Detail 09/11/20 10:57 Microbiology 09/11/20 14:05 Blood Culture (Wb) - Anticubital Left Blood Culture - Final No growth in 5 days. 09/11/20 14:20 Blood Culture (Wb) - Anticubital Left Blood Culture - Final No growth in 5 days. 09/13/20 10:30 Interface Orders Gram Stain - Final 09/13/20 10:30 Interface Orders Respiratory Culture - Final 09/12/20 15:12 Nasal Secretion Nasal Screen MRSA/MSSA - Final 09/10/20 14:12 Urine, Catheterized Urine Culture - Final Culture exhibits no growth. 09/10/20 14:05 Urine, Random Streptococcus pneumoniae Antigen (M - Final 09/10/20 14:05 Urine Catheter - Catheter Legionella Antigen - Final 09/11/20 14:30 Mucosa - Nasopharyngeal Respiratory Panel (PCR) - Final 09/11/20 13:25 Mucosa - Nose SARS-CoV-2 Antigen (Rapid) - Final 09/11/20 08:45 Stool Stool Occult Blood (CAIT) - Final Dr. Ez Maguire-pulmonary medicine Operations: None, - - Right direct anterior total hip replacement 09/08/2020 Procedures: None Summary of Care Provided: Mehnaz Fox is an 79-year-old female with a past medical history of nonobstructive coronary artery disease, COPD, bronchiectasis, depression/anxiety, hypertension, hyperlipidemia, tobacco dependence in remission, mild bilateral carotid artery stenosis (less than 50% bilaterally), chronic hypoxic respiratory failure on home O2, nonrheumatic trivial mitral regurgitation on an echocardiogram in March 2018 and chronic hypomagnesemia who presented to the emergency department at [facility] because an OP Hip XRAY showed a R femoral neck fracture. She gave a hx of having fallen over her cat about 4 weeks prior to having the XRAY. X-rays of the right hip and pelvis were done demonstrating the right femoral neck fracture with no pelvic fractures. She was admitted to [facility] and Dr. Agusto Arreaga was consulted for surgical repair. On 09/08/2020 she underwent a right anterior total hip replacement. Mehnaz lives alone and has 1 step to enter her house. There is a flight of stairs to the basement. She normally walks without an assistive device and is independent with all ADLs. Is a tub shower. She was transferred to the acute rehab unit on 09/09/2020 for greater than 3 hours of therapy daily to restore her at or near her prior level of independence/function. All Lab and documentation from the acute hospital admission was reviewed on the EMR. On the date of discharge from the hospital her white blood cell count was elevated at 13.8. Hemoglobin was 8.3, down from 11.8 at admission. MCV was elevated at 106.1. Platelets were within normal limits. The BUN was 25 and the creatinine had increased to 1.22 from 1.08 at presentation to the emergency department on 09/07/2020. Iron studies were done and the serum iron was low at 40 and the iron saturation was low at 15.7. Ferritin was 153. The transferrin saturation was 15.7 and this is consistent with iron deficiency. Folate and B12 for within normal limits and TSH was normal at 2.7. Vitamin D level was normal at 95.3. Calcium corrected for hypoalbuminemia was within normal limits. Cardiac catheterization in October 2018 showed a normal left ventricular ejection fraction and a normal right heart pressure. There was evidence of trivial triple-vessel disease. On ECHO in March of 2018 the L atrium may have mild enlargement. Lab on 09/11/2020 showed a hemoglobin of 7.5. The white blood cell count was down to 9.8 but there was a left shift with 81% neutrophils. Creatinine had decreased from 1.222 0.69 with hydration. She was ordered 2 units of PRBC's. She developed a cough and dyspnea at rest. On physical examination she had coarse crackles in the left base posterior and lateral. She was tachypneic and had mild conversational dyspnea but no accessory muscle use. Chest x-ray showed bilateral infiltrates superimposed on hyperinflation and emphysematous changes worse in the upper lobes. Covid rapid antigen was negative. Lactic acid was elevated at 2.3. The D-dimer was elevated at 1.7 but a CTA of the lungs revealed no evidence of pulmonary emboli. She was started on Vancomycin and Levaquin for sepsis due to HAP. The BNP was elevated at 470 however the patient's creatinine clearance is only 36 and this BNP is not bad. Procalcitonin was elevated at 0.29. Blood cultures were drawn and had no growth in 5 days. The respiratory panel was negative for viral infections. Nasal MRSA was negative. Sputum culture grew normal respiratory liz. 1 day after antibiotics were started her oxygen requirement was 4 LPM and her baseline is 3 LPM. She told me she felt much better and the Fluid balance was +[id number] so I do not think that CHF played a part in the sudden decompensation. Vanco was discontinued when the MRSA swab was negative and she received 7 days of Levaquin. The remainder of the stay in rehab was unremarkable. She was discharged home with [facility] on 09/21/20 and referred to [facility]. she was instructed to follow-up with her PCP, Dr. Nicci King, with Dr. Agusto Arreaga and with Yohana Jacobs, GUIDO. Alert and oriented x3, appropriate, no apparent distress, sitting in the recliner watching TV. Lungs-diminished throughout...... no wheezing, no rales heard today. Heart-regular rate and rhythm, no gallop Abdomen-soft, nontender, nondistended, normal bowel sounds heard, no guarding with palpation No peripheral edema, no calf tenderness No rashes The incision is intact with no apolonia-incisional erythema and no discharge. This note was generated with [employer] software. It may contain incorrect words, spelling, and punctuation that were not noted in checking the note before signing. Patient Problems: Active and Suspected Problems (Last Reviewed 09/27/20 @ 13:[address] Ean moore DO) Physical debility (Acute) Secondary to recent right hip fracture and subsequent ORIF on 09/08/2020 Dehydration (Acute) Tachycardia (Acute) - Physical Exam Vitals/I&O's: Vital Signs Temp Pulse Resp BP Pulse Ox 98.5 F 84 20 H 108/72 93 09/21/20 07:00 09/21/20 07:00 09/21/20 07:00 09/21/20 07:00 09/21/20 07:00 Oxygen Flow Rate (L/min) 3 Oxygen Delivery Method Nasal Cannula Weight: 118 lb 2.684 oz Body Mass Index (BMI) 20.6 Intake and Output for Last 24 Hours 09/19/20 09/20/20 09/21/20 23:59 23:59 23:59 Intake Total 1220 / 1220 2079 / 2079 Balance 1220 / 1220 2079 / 2079 Current Medications Acetaminophen (Acetaminophen 500 Mg Tablet) 1,000 mg PO Q8 [facility] Last Admin: 09/21/20 06:28 Dose: 1,000 mg Documented by: Albuterol Sulfate (Albuterol 2.5 Mg/3 Ml Vial.Neb.) 2.5 mg INHALATION Q2H PRN PRN PRN Reason: WHEEZING Aspirin (Aspirin 81 Mg Tab.Chew) 81 mg PO DAILY@0800 [facility] Last Admin: 09/21/20 09:01 Dose: 81 mg Documented by: Atorvastatin Calcium (Atorvastatin Calcium 40 Mg Tablet) 40 mg PO DAILY [facility] Last Admin: 09/21/20 09:04 Dose: 40 mg Documented by: Bisacodyl (Bisacodyl 10 Mg Suppository) 10 mg RECTAL .PRN X 1 PRN PRN Reason: Constipation Buspirone HCl (Buspirone 15 Mg Tablet) 15 mg PO DAILY [facility] Last Admin: 09/21/20 09:02 Dose: 15 mg Documented by: Calcium Carbonate (Calcium (Elemental) 500 Mg Tablet) 500 mg PO BIDCM [facility] Last Admin: 09/21/20 09:01 Dose: 500 mg Documented by: Cholecalciferol (Cholecalciferol (Vit D3) 1,000 Unit (25mcg)) 500 unit PO DAILY [facility] Last Admin: 09/21/20 09:07 Dose: 500 unit Documented by: Compound Med (Arthritis Pain Compound 60 Click Tube) 0 click TOPICAL TID [facility]; Protocol Last Admin: 09/21/20 08:09 Dose: 3 click Documented by: Enoxaparin Sodium (Enoxaparin 30 Mg/0.3 Ml Syringe) 30 mg SC DAILY@0600 [facility] Last Admin: 09/21/20 06:28 Dose: Not Given Documented by: Famotidine (Famotidine 20 Mg Tablet) 20 mg PO DAILY [facility] Last Admin: 09/21/20 09:06 Dose: 20 mg Documented by: Isosorbide Mononitrate (Isosorbide Mononitrate 30 Mg Tablet) 30 mg PO DAILY [facility] Last Admin: 09/21/20 09:03 Dose: 30 mg Documented by: Lactobacillus Acidophilus (Lactobacillus Acidophilus) 1 tablet PO DAILY [facility] Last Admin: 09/21/20 09:01 Dose: 1 tablet Documented by: Magnesium Chloride (Magnesium Chloride 64 Mg Delay Rel.Tablet) 128 mg PO DAILY [facility] Last Admin: 09/20/20 10:40 Dose: 128 mg Documented by: Magnesium Hydroxide (Magnesium Hydroxide 30 Ml Udc) 30 ml PO .PRN X 1 PRN PRN Reason: Constipation Melatonin (Melatonin 3 Mg Tablet) 3 mg PO QHS [facility] Last Admin: 09/20/20 21:50 Dose: 3 mg Documented by: Multivitamins (Multivitamins,Therapeutic Tablet) 1 tablet PO DAILYCM [facility] Last Admin: 09/21/20 09:01 Dose: 1 tablet Documented by: Oxycodone HCl (Oxycodone 5 Mg Tablet) 5 mg PO Q4H PRN PRN PRN Reason: Pain Score 1-10 Last Admin: 09/10/20 14:39 Dose: 5 mg Documented by: Paroxetine HCl (Paroxetine Cr 12.5 Mg Tablet) 37.5 mg PO DAILY [facility] Last Admin: 09/21/20 09:05 Dose: 37.5 mg Documented by: Ramipril (Ramipril 10 Mg Capsule) 10 mg PO DAILY [facility] Last Admin: 09/21/20 09:02 Dose: 10 mg Documented by: Fluticasone/Salmeterol (Fluticasone/Salmeterol 232-14 Inhaler) 1 puff IH Q12 [facility] Last Admin: 09/21/20 09:02 Dose: 1 puff Documented by: Senna/Docusate Sodium (Senna/Docusate Sodium 1 Tablet) 2 tablet PO BID [facility] Last Admin: 09/21/20 09:06 Dose: 2 tablet Documented by: Sodium Chloride (0.9% Saline Lock 10 Ml Syringe) 10 - 30 ml IV BID PRN PRN Reason: flush Last Admin: 09/18/20 20:31 Dose: 10 ml Documented by: Umeclidinium [place] (Umeclidinium [place] Inhaler) 1 puff IH DAILY [facility] Last Admin: 09/21/20 09:04 Dose: 1 puff Documented by: Discharge Activity: May Not Drive - until released by Dr. Arreaga and physical therapy, May Shower, Use Walker Weight Bearing Status: Full weight bearing Call your doctor if your incision/area has: Increased Pain/ Swelling, Increased Redness, Foul Smelling Discharge, Swelling at the incision site Call your doctor if you observe: Fever of 101 or Higher, Inability to urinate, Inability to have a bowel movement, Shortness of breath, Dizziness, Fainting spells, Chest pain, Calf discomfort, Uncontrolled pain Suture Line Care: Avoid Pulling/Pushing, Avoid Pinching/Bending Cleanse incision/area with: Soap & Water Home Medications: Medications to take at Discharge Atorvastatin Calcium 40 mg PO DAILY 12/28/17 Isosorbide Mononitrate [Imdur] 30 mg PO DAILY 12/28/17 Multivitamin [Daily Multiple Vitamin] 1 tab PO DAILY 12/28/17 Paroxetine HCl [Paxil Cr] 37.5 mg PO DAILY 12/28/17 Ramipril [Altace] 10 mg PO DAILY 12/28/17 calcium carbonate 600 mg calcium (1,500 mg) tablet 600 mg PO BID tab 12/30/17 cholecalciferol (vitamin D3) 10 mcg (400 unit) capsule 400 unit PO QDAY 12/30/17 lactobacillus combination no.8 3 billion cell capsule 3,000 mmu cells PO QDAY 12/30/17 omega-3 fatty acids 1,000 mg capsule 1,000 mg PO QDAY 12/30/17 buspirone 15 mg tablet 15 mg PO DAILY 30 Days #60 tab 09/22/18 Fluticasone/Umeclidin/Vilanter [Trelegy Ellipta 100-62.5-25] 1 puff INHALATION DAILY 09/07/20 Famotidine [Pepcid] 20 mg PO BID 09/09/20 Fluticasone/Umeclidin/Vilanter [Trelegy Ellipta 100-62.5-25] 1 ea IH DAILY 09/09/20 Acetaminophen [Tylenol] 1,000 mg PO Q8 PRN #1 tab 09/21/20 Arthritis Pain Compound 0 click TOPICAL TID gm 09/21/20 Aspirin [Aspirin, Baby] 81 mg PO BIDCM #1 09/21/20 Magnesium Chloride [Slow-Mag] 71.5 mg PO BID #60 tablet. 09/21/20 Following Prescriptions Were Given to Patient: Magnesium Chloride [Slow-Mag] 71.5 mg PO BID #60 tablet. Transmission Status: Received by [id number] Primary Care Physician: Nicci King DO [Primary Care Provider] - Please Follow Up With: Dr. Nicci King-PCP When: Wednesday Please Follow Up With: Dr. Agusto Arreaga-ortho When: Wednesday Please Follow Up With: Yohana Mckeon-GUIDO When: Wednesday Patient Instructions: Hip Precautions Disposition: Home Minutes spent on discharge:: 40 Patient Condition:: Good Medical Necessity - Tobacco Use Smoking Status: Former smoker - She quit in 1994 Tobacco Use: Non-smoker Meaningful Use Info Meaningful Use Diagnoses (Choose all that apply): None applicable Inpatient E&M: 12642 Disch Hosp
[2020-09-21] MEDS: Magnesium Chloride 64 MG Delay Rel.Tablet 128 MG PO (11:31)
== END 2020-09-21 13:14 | disposition home or self-care (01) | DRG 559 ==
PROVIDERS: Admitting Provider Internal Medicine; PCP Internal Medicine; Visit Provider Internal Medicine
DX: S72.001D Fracture of unspecified part of neck of right femur, subsequent encounter for closed fracture with routine healing (principal); J18.9 Pneumonia, unspecified organism; I21.A1 Myocardial infarction type 2; J96.21 Acute and chronic respiratory failure with hypoxia; I13.0 Hypertensive heart and chronic kidney disease with heart failure and stage 1 through stage 4 chronic kidney disease, or unspecified chronic kidney disease; J44.0 Chronic obstructive pulmonary disease with (acute) lower respiratory infection; W01.0XXD Fall on same level from slipping, tripping and stumbling without subsequent striking against object, subsequent encounter; I25.10 Atherosclerotic heart disease of native coronary artery without angina pectoris; N18.9 Chronic kidney disease, unspecified; I50.9 Heart failure, unspecified; Z87.891 Personal history of nicotine dependence; F32.9 Major depressive disorder, single episode, unspecified; F41.9 Anxiety disorder, unspecified; E78.5 Hyperlipidemia, unspecified; Z99.81 Dependence on supplemental oxygen; E86.0 Dehydration; E61.1 Iron deficiency
CPT/HCPCS: 36415; 71046; 71275; 80048; 80076; 80202; 81001; 82274; 82550; 83605; 83615; 83735; 83880; 84100; 84145; 84484; 85014; 85018; 85025; 85379; 85384; 85610; 86850; 86900; 86901; 86920; 86922; 87040; 87070; 87081; 87086; 87205; 87426; 87449; 87633; 87641; 92507; 92523; 92526; 92610; 93005; 97110; 97116; 97129; 97130; 97162; 97166; 97530; 97535; 97802; 97803; 99251; J7030; J7040; J7050; P9016; Q9967; A4216; G0463; J1940

== ENCOUNTER 2020-09-27 09:08 | Inpatient (IN) | payer MEDICARE, OTHER, SELFPAY ==
[2020-09-09 15:13] VITALS: BMI 20.6
[2020-09-27] VITALS (12 sets, daily range): BP systolic 98–115; BP diastolic 51–83; PULSE 78–105; RESP 14–24; TEMP 36.4–37.3; O2SAT 84–96; BMI 21.2; BMI 19.7
--- NOTE | 2020-09-27 09:28 | EKG12_ITS ---
Test Reason : SOB Blood Pressure : / mmHG Vent. Rate : 088 BPM Atrial Rate : 088 BPM P-R Int : 134 ms QRS Dur : 084 ms QT Int : 378 ms P-R-T Axes : 067 069 055 degrees QTc Int : 457 ms Normal sinus rhythm Normal ECG Confirmed by ROSETTA VALERO, LEANA ([id number]), medical editor PACO ROSARIO ([id number]) on 10/01/2020 10:48:21 AM Referred By: DRAKE Confirmed By:LEANA SARGENT MD
--- NOTE | 2020-09-27 09:29 | ED.DCSUM_ITS ---
History of Present Illness Chief Complaint: Shortness of Breath Informant: Patient Narrative: 79-year-old female with a history of COPD on 3 L nasal cannula chronically presents for the evaluation of fever. Patient states that she was recently admitted to the hospital due to a broken right hip and underwent a total hip replacement. Recovery was complicated with pneumonia and she completed a course of Levaquin. She was discharged home approximately 1 week ago. She states that yesterday she felt somewhat dizzy and a little confused. She got her first Covid vaccination. She tells me she woke this morning was more dizzy more confused and had 102 fever. She states that she was up most of the night with body aches and urinated 7 times. No dysuria or hematuria. The patient states that she had a cough yesterday. This morning she states she was 83%. Fever was relieved at home with anti-inflammatories. No nausea vomiting diarrhea. Patient states that she feels much better now that her fever is gone. - Past Medical History (1) Acute blood loss anemia Status: Chronic (2) Closed right hip fracture Status: Chronic (3) Anxiety and depression Status: Chronic (4) Atherosclerotic heart disease of [place] coronary artery without angina pectoris Status: Chronic Comment: 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 (5) CKD (chronic kidney disease) Status: Chronic Comment: ? unclear. The GFR came up to 86 with hydration. (6) COPD (chronic obstructive pulmonary disease) Status: Chronic (7) Essential hypertension Status: Chronic (8) Former tobacco use Status: Chronic Comment: She quit in 1994 (9) Nonrheumatic mitral valve regurgitation Status: Chronic Comment: trivial on ECHO done 03/17/2018 (10) Pure hypercholesterolemia Status: Chronic (11) Pneumonia Status: Resolved (12) Pulmonary edema Status: Resolved Past Medical History - Allergies and Home Meds Allergies/Adverse Reactions: Allergies cefaclor [From Ceclor] Allergy (Verified 09/27/20 09:09) Hives Primary Care Physician: Nicci King DO [Primary Care Provider] - Surgical History: - - Cholecystectomy, tonsillectomy. Right total hip repl acement on 09/08/[address] Arreaga. Lives: With Family Smoking Status: Former smoker Drugs: None - Family History Maternal Family History: Family History (Last Reviewed 09/11/20 @ 10:[address] Gisel Malik DO) Father Myocardial infarction, Onset Age: 43 Brother Myocardial infarction, Onset Age: 52 Brother CAD (coronary artery disease) Family History: Reports: Cancer - Mother with history of pancreatic cancer. Paternal Family History: Family History (Last Reviewed 09/11/20 @ 10:[address] Gisel Malik DO) Father Myocardial infarction, Onset Age: 43 Brother Myocardial infarction, Onset Age: 52 Brother CAD (coronary artery disease) Family History: Reports: High Cholesterol, Heart Disease, Hypertension Review of Systems General: Reports: Chills, Fever, Malaise. Denies: Sweats Eyes: Denies: Visual changes - bilaterally, Diplopia ENT: Denies: Rhinorrhea, Sore throat Cardiovascular: Denies: Chest pain, Palpitations Respiratory: Reports: Dyspnea, Cough, Dyspnea on exertion Gastrointestinal: Denies: Abdominal pain, Nausea, Vomiting, Diarrhea, Melena, Hematochezia Genitourinary: Denies: Dysuria, Hematuria, Frequency Musculoskeletal: Reports: Myalgias. Denies: Back pain, Extremity Pain Skin: Denies: Rash, Wounds Neurological: Reports: - - Lightheadedness (AKA dizziness per patient). Denies: Headache, Weakness, Numbness Physical Exam Vital Signs/Narrative: Vital Signs Temp Pulse Resp BP Pulse Ox 09/27/20 09:11 97.5 F L 105 H 24 H 110/57 L 84 09/27/20 09:09 97.5 F L 105 H 24 H 110/57 L 84 Inital Vital Signs reviewed: Yes General: Well nourished, Well developed, No Acute Distress Head: Normocephalic, Atraumatic Eyes: Perrl, EOMI ENT: Moist mucous membranes, No rhinorrhea Neck: Supple, Nontender Cardiovascular: Regular rate, No murmurs, Tachycardia Respiratory: No distress, CTA bilaterally, Chest nontender Abdomen: Soft, Nontender, Nondistended, Normal bowel sounds Back: Nontender, Normal Inspection Extremities: Nontender, No edema Skin: Normal color, No rash Neurological: Alert, Oriented x3, Cranial nerves II-XII grossly intact, Normal Strength, Normal Sensation Psychological: Normal affect, Normal Mood Diagnostic/Tx/Re-eval Clinical Impression(s) from Imaging Studies Chest X-Ray 09/27/20 10:30 IMPRESSION: Persistent bibasilar infiltrates worse on the left side although there has been moderate clearing as compared to prior study. This is superimposed on emphysematous changes and pulmonary scarring. Electronically Signed: Shreyas Westbrook MD at 10:52 EST , Service support , Chest CTA 09/27/20 10:36 IMPRESSION: No evidence of pulmonary embolism. Improved aeration of both lungs as compared to prior study with residual changes present superimposed on emphysematous changes and bronchiectasis. Electronically Signed: Shreyas Westbrook MD at 11:13 EST , Service support , Laboratory Last Values WBC 13.4 K/mm3 (4.4-11.0) H 09/27/20 09:40 RBC 3.34 M/mm3 (4.2-5.4) L 09/27/20 09:40 Hgb 11.1 g/dL (12.0-15.0) L 09/27/20 09:40 Hct 33.9 % (37-47) L 09/27/20 09:40 MCV 101.5 fL (81-99) H 09/27/20 09:40 MCH 33.2 pg (27.0-32.0) H 09/27/20 09:40 MCHC 32.7 g/dL (32-36) 09/27/20 09:40 RDW Std Deviation 52.4 fl (35.1-43.9) H 09/27/20 09:40 RDW Coeff of Linette 14.2 % (11.6-14.6) 09/27/20 09:40 Plt Count 308 K/mm3 (150-450) 09/27/20 09:40 MPV 10.7 fl (6.2-12.0) 09/27/20 09:40 Immature Gran % (Auto) 0.400 % (0.0-0.9) 09/27/20 09:40 Neut % (Auto) 92.6 % (47-70) H 09/27/20 09:40 Lymph % (Auto) 1.5 % (19-41) L 09/27/20 09:40 Grayson % (Auto) 5.0 % (0-10) 09/27/20 09:40 Eos % (Auto) 0.3 % (0-5) 09/27/20 09:40 Baso % (Auto) 0.2 % (0-1) 09/27/20 09:40 Absolute Neuts (auto) 12.4 X10^3/uL (2.0-7.7) H 09/27/20 09:40 Absolute Lymphs (auto) 0.20 X10^3/uL (0.83-4.51) L 09/27/20 09:40 Nucleated RBC % 0 % (0-5) 09/27/20 09:40 PT 13.9 SECONDS (11.7-14.9) 09/27/20 09:40 INR 1.1 09/27/20 09:40 APTT 30.1 Seconds (24.1-36.2) 09/27/20 09:40 Sodium 135 mmol/L (136-145) L 09/27/20 09:40 Potassium 3.6 mmol/L (3.5-5.1) 09/27/20 09:40 Chloride 102 mmol/L (98-107) 09/27/20 09:40 Carbon Dioxide 29.0 mmol/L (21.0-32.0) 09/27/20 09:40 Anion Gap 4 (5-15) L 09/27/20 09:40 BUN 19 mg/dL (7-18) H 09/27/20 09:40 Creatinine 0.83 mg/dL (0.55-1.02) 09/27/20 09:40 Estim Creat Clear Calc 43.97 ml/min 09/27/20 09:40 Est GFR (MDRD) Af Amer 85 mL/min (>60) 09/27/20 09:40 Est GFR (MDRD) Non-Af 70 mL/min (>60) 09/27/20 09:40 BUN/Creatinine Ratio 22.9 RATIO (10-20) H 09/27/20 09:40 Glucose 107 mg/dL (74-106) H 09/27/20 09:40 Lactic Acid 1.8 mmol/L (0.4-1.9) 09/27/20 09:50 Calcium 8.4 mg/dL (8.5-10.1) L 09/27/20 09:40 Total Bilirubin 0.70 mg/dL (0.20-1.00) 09/27/20 09:40 AST 28 U/L (15-37) 09/27/20 09:40 ALT 24 U/L (13-56) 09/27/20 09:40 Alkaline Phosphatase 73 U/L (45-117) 09/27/20 09:40 Troponin I < 0.015 ng/mL (<0.045) 09/27/20 09:40 Total Protein 7.1 g/dL (6.4-8.2) 09/27/20 09:40 Albumin 3.0 g/dL (3.2-5.0) L 09/27/20 09:40 Globulin 4.1 g/dL (2.2-4.2) 09/27/20 09:40 Albumin/Globulin Ratio 0.7 RATIO (0.9-2.4) L 09/27/20 09:40 - EKG Initial EKG Interpretation: Sinus Rhythm - EKG demonstrates a normal sinus rhythm at a rate of 88 with no concerning features of ACS. This is compared to EKG dated 09/11/2020 with no significant changes. - Medical Decision Making His blood work shows a leukocytosis of 13.4. Lactic acid and troponin normal. CMP negative. Covid antigen test is positive. My interpretation of the single view portable chest x-ray is emphysema with bibasilar atelectasis versus infiltrates. Patient underwent CTA which shows improving left lower lobe infiltrate but new right lower lobe infiltrate. No pulmonary embolisms noted. Ambulating around the room on 3 L the patient quickly drops to 88% and is quite labored. I spoke with our infectious disease doctor. He recommends starting with community-acquired pneumonia antibiotics. Originally wish to give ceftriaxone azithromycin but due to her cephalosporin allergy went with Levaquin. She also received a dose of Decadron. ID has requested a D-dimer. Plan is going to be admission into the hospital. ED Disposition - Plan for ED Patient: Disposition: Acute Care Hospital [facility] Diagnosis: COVID-19, COPD (chronic obstructive pulmonary disease), Pneumonia Referrals: Nicci King DO [Primary Care Provider] -
[2020-09-27 10:03] LABS: Absolute Neutrophil Count 12.4 X10^3/uL (2.0-7.7); Basophil# 0.03 X10^3/uL; Basophil% 0.2 % (0-1); Eosinophil# 0.04 X10^3/uL; Eosinophils% 0.3 % (0-5); Hematocrit 33.9 % (37-47); Hemoglobin 11.1 g/dL (12.0-15.0); Lymphocyte % 1.5 % (19-41); Mean Corp Hgb Conc 32.7 g/dL (32-36); Mean Corpuscular Hgb 33.2 pg (27.0-32.0); Mean Corpuscular Volume 101.5 fL (81-99); Mean Platelet Vol. 10.7 fl (6.2-12.0); Monocyte# 0.67 X10^3/uL; NRBC Flagged by Analyzer 0 % (0-5); Neutrophil # 12.43 X10^3/uL (2.7-7.7); Neutrophil % 92.6 % (47-70); POSITIVE DIFFERENTIAL YES; Platelet Count 308 K/mm3 (150-450); RBC Distribution Width CV 14.2 % (11.6-14.6); RBC Distribution Width SD 52.4 fl (35.1-43.9); Red Blood Count 3.34 M/mm3 (4.2-5.4); White Blood Count 13.4 K/mm3 (4.4-11.0)
[2020-09-27 10:04] LABS: Differential Indicated SCAN CRITERIA MET
[2020-09-27 10:21] LABS: ALB/GLOB Ratio 0.7 RATIO (0.9-2.4); AST(SGOT) 28 U/L (15-37); Alanine Aminotransfer ALT/SGPT 24 U/L (13-56); Alkaline Phosphatase 73 U/L (45-117); Anion Gap 4 (5-15); BUN 19 mg/dL (7-18); BUN/Creat Ratio 22.9 RATIO (10-20); Calcium,Total 8.4 mg/dL (8.5-10.1); Chloride 102 mmol/L (98-107); Creatinine, Serum 0.83 mg/dL (0.55-1.02); EST Glomerular Filtration Rate 70 mL/min (>60); Est Glom Filt Rate - Afr Amer 85 mL/min (>60); Estimated Creatinine Clearance 43.97 ml/min; Globulin 4.1 g/dL (2.2-4.2); Glucose 107 mg/dL (74-106); Potassium 3.6 mmol/L (3.5-5.1); Protein, Total 7.1 g/dL (6.4-8.2); Sodium Level 135 mmol/L (136-145)
[2020-09-27 10:22] LABS: International Normalized Ratio 1.1; Prothrombin Time (Protime)PT. 13.9 SECONDS (11.7-14.9)
[2020-09-27 10:23] LABS: Partial Thromboplast Time 30.1 Seconds (24.1-36.2)
--- NOTE | 2020-09-27 10:30 | RAD_ITS ---
STUDY: X-RAY CHEST REASON FOR EXAM: Female, 79 years old. Fever, Hx COPD, patient is s/p recent hip replacement and pneumonia, received COVID vaccine yesterday, now low 02, cough, shortness of breath, fever TECHNIQUE: Single AP portable view of the chest. COMPARISON: Comparison is made with prior study dated 03/11/2021. FINDINGS: EKG electrodes are seen. Hyperinflation. Emphysematous changes with decreased bronchovascular markings in the upper lobes worse on the right side persistent bibasilar infiltrates although there is been improvement as compared to prior study. This is superimposed on chronic scarring. Blunting of both costophrenic angles. Normal size heart. Normal mediastinum and roger. Normal visualized pulmonary arteries. There is atherosclerotic calcification of the aortic arch with tortuosity. There are diffuse degenerative changes of the visualized thoracic spine. Normal visualized ribs, clavicles, and shoulders. There is no demonstrated abnormality of the visualized soft tissue structures of the upper abdomen. RAD/Chest 1 View (Portable) IMPRESSION: Persistent bibasilar infiltrates worse on the left side although there has been moderate clearing as compared to prior study. This is superimposed on emphysematous changes and pulmonary scarring. Electronically Signed: Shreyas Westbrook MD at 10:52 EST , Service support ,
[2020-09-27 10:36] LABS: Lactic Acid 1.8 mmol/L (0.4-1.9)
--- NOTE | 2020-09-27 10:36 | CT_ITS ---
STUDY: CTA CHEST REASON FOR EXAM: Female, 79 years old. Hypoxia, COVID RADIATION DOSAGE (If Supplied By Facility): CTDIvol = ( 5.80 ) mGy, DLP = ( 145.99 ) mGycm TECHNIQUE: The examination was performed with the intravenous administration of IV 75mL Isovue-370. Post-processing of the angiographic images was performed, with multiplanar reformation and 3D reconstruction. Individualized dose optimization techniques were used for this CT. COMPARISON: Comparison is made with prior examination dated 09/11/2020. FINDINGS: Normal enhancement of the main pulmonary artery and right and left pulmonary arteries. Normal enhancement of the bilateral peripheral pulmonary arteries. There is no demonstrated pulmonary embolism. There is atherosclerotic calcification of the aortic arch with tortuosity. There is no demonstrated aortic dissection. Normal heart and pericardium. Normal mediastinum. Normal hilar regions. Normal visualized trachea and bronchi. Hyperinflation. Emphysematous changes worse in the upper lobes more prominent on the right side. Persistent infiltrate in the left lower lobe. Mild residual changes persist. Persistent scarring and bronchiectasis in both lower lobes worse on the right side. New focal infiltrate in the right lower lobe. Normal pleura. Normal chest wall structures. There are degenerative changes of thoracic spine. Normal visualized upper abdomen. CT/CTA Chest W/WO Contrast IMPRESSION: No evidence of pulmonary embolism. Improved aeration of both lungs as compared to prior study with residual changes present superimposed on emphysematous changes and bronchiectasis. Electronically Signed: Shreyas Westbrook MD at 11:13 EST , Service support ,
[2020-09-27] MEDS: dexAMETHasone 4 MG Tablet 6 MG PO (11:25)
[2020-09-27] MEDS: Acetaminophen 500 MG Tablet 1000 MG PO (11:25)
--- NOTE | 2020-09-27 11:41 | ED.RN ---
ambulated back and forth in room on 3l o3 per home. pt sats dropped to 88% after a few passes back and forth.
--- NOTE | 2020-09-27 11:45 | NURSING ---
DR ESPARZA PAGED THROUGH ANSWERING SERVICE
[2020-09-27] MEDS: levoFLOXacin IV 750 MG/150 ML BAG 100 MG IV (12:13)
--- NOTE | 2020-09-27 12:14 | ED.RN ---
talked with pt daughter caitlin. discussed results and plan. answered questions. pt updated with plan and agreeable. waiting on hospitalist.
[2020-09-27 12:28] LABS: D-Dimer Quantitative (DVT/PE) 3.03 FEU/ug/m (0.27-0.49)
--- NOTE | 2020-09-27 12:53 | NURSING ---
215 esther covid 19
--- NOTE | 2020-09-27 13:04 | HP.PCM_ITS ---
History of Present Illness Date of Admission: 09/27/20 Chief Complaint: confusion The patient is a 79 year old F developed dizziness yesterday which she describes as confusion. Was occurring while she was sitting not necessarily exacerbated by change in position. Yesterday, after she had felt dizzy she did get her first Covid vaccination. Afterwards, patient did develop a fever of 102 Fahrenheit. Today family brought her to the hospital for evaluation. Patient was seen in the emergency room and patient had a rapid Covid antigen. CAT scan was concerning for pneumonia patient did receive levofloxacin. The hospital service was contacted for admission. Patient was checked for hypoxia and she was in her 80s, however patient is on 3 L of oxygen at home. Patient denies any new shortness of breath. Patient has chronic anosmia that has been evaluated without unclear diagnosis. [] Past Medical History Past Medical History (Chronic Problems): Chronic Problems (Last Reviewed 09/10/20 @ 13:[address] Gisel Malik DO) Closed right hip fracture (Chronic) Former tobacco use (Chronic) She quit in 1994 COPD (chronic obstructive pulmonary disease) (Chronic) Anxiety and depression (Chronic) CKD (chronic kidney disease) (Chronic) ? unclear. The GFR came up to 86 with hydration. Acute blood loss anemia (Chronic) Chronic respiratory failure with hypoxia, on home O2 therapy (Chronic) Pure hypercholesterolemia (Chronic) Essential hypertension (Chronic) Dyspnea on exertion (Chronic) Atherosclerotic heart disease of [place] coronary artery without angina pectoris (Chronic) 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 Nonrheumatic mitral valve regurgitation (Chronic) trivial on ECHO done 03/17/2018 Medical History: Medical History (Last Reviewed 09/27/20 @ 13:[address] Ean Chirinos, DO) Pure hypercholesterolemia (Chronic) E78.00 Essential hypertension (Chronic) I10 Atherosclerotic heart disease of [place] coronary artery without angina pectoris (Chronic) I25.10 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 Nonrheumatic mitral valve regurgitation (Chronic) I34.0 trivial on ECHO done 03/17/2018 Depression F32.9 COPD (chronic obstructive pulmonary disease) J44.9 Allergies cefaclor [From Ceclor] Allergy (Verified 09/27/20 09:09) Hives Home Medications: Ambulatory Orders Medication Instructions Recorded Atorvastatin Calcium 40 mg PO DAILY 12/28/17 Isosorbide Mononitrate [Imdur] 30 mg PO DAILY 12/28/17 Multivitamin [Daily Multiple 1 tab PO DAILY 12/28/17 Vitamin] Paroxetine HCl [Paxil Cr] 37.5 mg PO DAILY 12/28/17 Ramipril [Altace] 10 mg PO DAILY 12/28/17 calcium carbonate 600 mg calcium 600 mg PO BID tab 12/30/17 (1,500 mg) tablet cholecalciferol (vitamin D3) 10 400 unit PO QDAY 12/30/17 mcg (400 unit) capsule lactobacillus combination no.8 3 3,000 mmu cells PO QDAY 12/30/17 billion cell capsule omega-3 fatty acids 1,000 mg 1,000 mg PO QDAY 12/30/17 capsule buspirone 15 mg tablet 15 mg PO DAILY 30 Days #60 tab 09/22/18 Fluticasone/Umeclidin/Vilanter 1 puff INHALATION DAILY 09/07/20 [Trelegy Ellipta 100-62.5-25] Famotidine [Pepcid] 20 mg PO BID 09/09/20 Fluticasone/Umeclidin/Vilanter 1 ea IH DAILY 09/09/20 [Trelegy Ellipta 100-62.5-25] Acetaminophen [Tylenol] 1,000 mg PO Q8 PRN #1 tab 09/21/20 Arthritis Pain Compound 0 click TOPICAL TID gm 09/21/20 Aspirin [Aspirin, Baby] 81 mg PO BIDCM #1 09/21/20 Magnesium Chloride [Slow-Mag] 71.5 mg PO BID #60 tablet. 09/21/20 Surgical History: Surgical History (Last Reviewed 09/27/20 @ 13:[address] Ean Chirinos DO) History of cholecystectomy Z90.49 Surgical History: - - Cholecystectomy, tonsillectomy. Right total hip replacement on 09/08/[address] Arreaga. 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 Ean Chirinos DO) Father Myocardial infarction, Onset Age: 43 Brother Myocardial infarction, Onset Age: 52 Brother CAD (coronary artery disease) History Items: Cancer - Mother with history of pancreatic cancer. Paternal Family History: Family History (Last Reviewed 09/27/20 @ 13:[address] Ean Chirinos ) Father Myocardial infarction, Onset Age: 43 Brother Myocardial infarction, Onset Age: 52 Brother CAD (coronary artery disease) History Items: High Cholesterol, Heart Disease, Hypertension Review of Systems Constitutional: Reports: Fever. Denies: Anorexia, Chills Eyes: Denies: Blurred vision, Double vision HEENT: Denies: Difficulty Hearing, Dysphasia Cardiovascular: Denies: Chest Pain, Palpitations Respiratory: Reports: Shortness of Breath. Denies: Cough Gastrointestinal: Denies: Abdominal Pain, Nausea, Vomiting Genitourinary: Denies: Dysuria Musculoskeletal: Denies: Joint Pain, Joint Tenderness Skin: Denies: Dryness, Jaundice Neurological: Denies: Numbness, Tingling, Focal weakness Psychiatric: Denies: Anxiety, Depression Hematologic/ Lymphatic: Denies: Easy Bruising, Easy Bleeding, Hx of blood clot Comment: All review of systems were negative except as mentioned above in the history of present illness and the other review of systems. VTE Information - Inpt Only VTE Present on Admission: No VTE Mechan Device Prophylaxis: None VTE Pharm Prophylaxis ordered?: Yes Patient Problems: Active and Suspected Problems (Last Reviewed 09/10/20 @ 13:[address] Gisel Malik ) COVID-19 (Acute) Pneumonia (Acute) - Physical Exam Vitals/I&O's: Vital Signs Temp Pulse Resp BP Pulse Ox 37.2 C 88 17 100/51 L 96 09/27/20 12:46 09/27/20 12:46 09/27/20 12:46 09/27/20 12:46 09/27/20 12:46 Oxygen Flow Rate (L/min) 3 Oxygen Delivery Method Nasal Cannula Weight: 54.431 kg Body Mass Index (BMI) 21.2 General: Alert, No apparent distress HEENT: Atraumatic, Normocephalic Oral: Moist Mucosa, No Gingival or Mucosal Lesions/ Ulcerations Neck: No Nodes, Thyroid Normal Size and Texture Lungs: Clear to auscultation, Normal air movement, No rhonchi, No wheeze, No rales Cardiovascular: Regular rate, Regular Rhythm, Normal S1, Normal S2, No murmurs Abdomen: Bowel Sounds Present, Soft, Non Tender, Non-Distended, No Hepato- splenomegaly Extremities: No edema, No Calf Tenderness Skin: No rashes, No breakdown Psych/Mental Status: Normal Affect, Appropriate Microbiology Past 72 Hours 09/27/20 09:50 Mucosa - Nose SARS-CoV-2 Antigen (Rapid) - Final SARS-CoV-2 (COVID 19) 09/27/20 09:50 Mucosa - Nose Influenza Types A,B Direct FA (CAIT) - Final Laboratory Results 09/27/20 09:40: WBC 13.4 H, RBC 3.34 L, Hgb 11.1 L, Hct 33.9 L, MCV 101.5 H, MCH 33.2 H, MCHC 32.7, RDW Std Deviation 52.4 H, RDW Coeff of Linette 14.2, Plt Count 308, MPV 10.7, Immature Gran % (Auto) 0.400, Neut % (Auto) 92.6 H, Lymph % (Auto) 1.5 L, Carter % (Auto) 5.0, Eos % (Auto) 0.3, Baso % (Auto) 0.2, Absolute Neuts (auto) 12.4 H, Absolute Lymphs (auto) 0.20 L, Nucleated RBC % 0 09/27/20 09:40: PT 13.9, INR 1.1, APTT 30.1 09/27/20 09:40: Sodium 135 L, Potassium 3.6, Chloride 102, Carbon Dioxide 29.0, Anion Gap 4 L, BUN 19 H, Creatinine 0.83, Estim Creat Clear Calc 43.97, Est GFR (MDRD) Af Amer 85, Est GFR (MDRD) Non-Af 70, BUN/Creatinine Ratio 22.9 H, Glucose 107 H, Calcium 8.4 L, Total Bilirubin 0.70, AST 28, ALT 24, Alkaline Phosphatase 73, Troponin I < 0.015, Total Protein 7.1, Albumin 3.0 L, Globulin 4.1, Albumin/Globulin Ratio 0.7 L 09/27/20 09:40: D-Dimer Quant (PE/DVT) 3.03 H* 09/27/20 09:50: Lactic Acid 1.8 CTA of the chest was personally reviewed and showed diffuse severe emphysematous changes. Right lower lobe infiltrate versus atelectasis. Chronic scarring in the bilateral lower lobes. Current Medications Levofloxacin (Levaquin Iv) 750 mg in 150 mls @ 100 mls/hr IV X1 ONE Stop: 09/27/20 13:21 Last Admin: 09/27/20 12:13 Dose: 100 mls/hr Documented by: Assessment/Plan All Active Problems (Last Reviewed 09/10/20 @ 13:[address] Gisel Malik, DO) COVID-19 (Acute) Pneumonia (Acute) Pulmonary edema (Resolved) Pneumonia (Resolved) Physical debility (Acute) Dehydration (Acute) Tachycardia (Acute) 1. Dizziness: Patient currently feeling fine at this time. Question the patient had some vertigo previously. 2. Chronic hypoxic respiratory failure: Patient has advanced COPD. Patient checked her oxygen on room air which was in the 80s which is to be expected. 3. Positive rapid COVID-19 antigen: Unclear if this is true infection. Patient does not have findings consistent with COVID-19 on her imaging. Will check a PCR and if that is negative then would discontinue COVID-19 isolation. If positive then would initiate treatment with dexamethasone and remdesivir. Patient did have the vaccination yesterday. Unclear if that would cause an antigen being positive falsely. Patient denies any sick contacts at home. 4. Recent right hip femoral neck fracture: Status post hip replacement on third. Follow-up with orthopedics as outpatient. 5. VTE prophylaxis with low molecular weight heparin. Refer to NIH guidelines (https://www.pctke24bknhbfgpkomirjzxgxz.nih.gov/adjunctive-therapy/antithromboti c-therapy/) and Chest guidelines (CHEST 2020; 158(3): 4326-0231). 6. [place] care planning: Discussed with the patient. Patient wishes to be DNR Comfort Care arrest with intubation if necessary. Form the patient that with her severe COPD that she would be very difficult to get off of ventilator if she were ever intubated. OBSV E&M: 18101 Initial observation care L2
--- NOTE | 2020-09-27 13:07 | ED.RN ---
Updated daughter Piper over the phone on patients admission.
[2020-09-27] MEDS: Calcium (Elemental) 500 MG Tablet PO (16:57)
[2020-09-27 17:55] LABS: Alkaline Phosphatase 72 U/L (45-117)
[2020-09-27] MEDS: Ipratropium/Albuterol Sulfate 3 ML AMPUL.NEB INHALATION (19:56)
[2020-09-27] MEDS: Budesonide Respules 0.5 MG/2 ML AMPUL.NEB. INHALATION (19:57)
[2020-09-27] MEDS: Famotidine 20 MG Tablet PO (20:39)
[2020-09-27] MEDS: Magnesium Chloride 64 MG Delay Rel.Tablet PO (20:39)
[2020-09-27] MEDS: Atorvastatin Calcium 40 MG Tablet PO (20:39)
[2020-09-27] MEDS: 0.9% Saline Lock 10 ML Syringe IV (20:56)
[2020-09-28] VITALS (16 sets, daily range): BP systolic 79–131; BP diastolic 49–89; PULSE 78–105; RESP 12–23; TEMP 36.5–38.4; O2SAT 85–97
[2020-09-28 06:04] LABS: Absolute Neutrophil Count 13.2 X10^3/uL (2.0-7.7); Basophil# 0.02 X10^3/uL; Basophil% 0.1 % (0-1); Hematocrit 32.4 % (37-47); Hemoglobin 10.4 g/dL (12.0-15.0); Lymphocyte % 2.1 % (19-41); Mean Corp Hgb Conc 32.1 g/dL (32-36); Mean Corpuscular Hgb 32.7 pg (27.0-32.0); Mean Corpuscular Volume 101.9 fL (81-99); Mean Platelet Vol. 10.7 fl (6.2-12.0); Monocyte# 0.54 X10^3/uL; Monocyte% 3.8 % (0-10); NRBC Flagged by Analyzer 0 % (0-5); Neutrophil # 13.18 X10^3/uL (2.7-7.7); Neutrophil % 93.6 % (47-70); POSITIVE DIFFERENTIAL YES; Platelet Count 291 K/mm3 (150-450); RBC Distribution Width SD 52.6 fl (35.1-43.9); Red Blood Count 3.18 M/mm3 (4.2-5.4); White Blood Count 14.1 K/mm3 (4.4-11.0)
[2020-09-28 06:06] LABS: Differential Indicated SCAN CRITERIA MET
[2020-09-28 06:25] LABS: Differential Comment SCANNED
[2020-09-28 06:41] LABS: ALB/GLOB Ratio 0.7 RATIO (0.9-2.4); AST(SGOT) 29 U/L (15-37); Alanine Aminotransfer ALT/SGPT 20 U/L (13-56); Albumin, Serum 2.6 g/dL (3.2-5.0); Alkaline Phosphatase 66 U/L (45-117); Anion Gap 5 (5-15); BUN 26 mg/dL (7-18); BUN/Creat Ratio 30.8 RATIO (10-20); Calcium,Total 8.3 mg/dL (8.5-10.1); Chloride 103 mmol/L (98-107); Creatinine, Serum 0.84 mg/dL (0.55-1.02); EST Glomerular Filtration Rate 69 mL/min (>60); Est Glom Filt Rate - Afr Amer 83 mL/min (>60); Estimated Creatinine Clearance 41.87 ml/min; Globulin 3.8 g/dL (2.2-4.2); Glucose 116 mg/dL (74-106); Potassium 3.4 mmol/L (3.5-5.1); Protein, Total 6.4 g/dL (6.4-8.2); Sodium Level 136 mmol/L (136-145)
[2020-09-28] MEDS: Ipratropium/Albuterol Sulfate 3 ML AMPUL.NEB INHALATION (07:17)
[2020-09-28] MEDS: Budesonide Respules 0.5 MG/2 ML AMPUL.NEB. INHALATION ×2 (07:17→19:53)
[2020-09-28] MEDS: dexAMETHasone 4 MG Tablet 6 MG PO (09:59)
[2020-09-28] MEDS: Enoxaparin 40 MG/0.4 ML Syringe SC (09:59)
[2020-09-28] MEDS: PARoxetine CR 12.5 MG Tablet 37.5 MG PO (09:59)
[2020-09-28] MEDS: Magnesium Chloride 64 MG Delay Rel.Tablet PO ×2 (10:00→20:10)
[2020-09-28] MEDS: Calcium (Elemental) 500 MG Tablet PO ×2 (10:01→18:45)
[2020-09-28] MEDS: Isosorbide Mononitrate 30 MG Tablet PO (10:02)
[2020-09-28] MEDS: Ramipril 10 MG Capsule PO (10:02)
[2020-09-28] MEDS: busPIRone 15 MG TABLET PO (10:02)
[2020-09-28] MEDS: Famotidine 20 MG Tablet PO ×2 (10:03→20:10)
[2020-09-28] MEDS: 0.9% Saline Lock 10 ML Syringe IV (10:03)
[2020-09-28] MEDS: Multivitamins,Therapeutic Tablet 1 TABLET PO (10:03)
[2020-09-28] MEDS: Aspirin 81 MG TAB.CHEW PO (10:03)
--- NOTE | 2020-09-28 11:16 | PCM.PN.HOSP ---
Patient Problems: Active and Suspected Problems (Last Reviewed 09/27/20 @ 13:[address] Ean Chirinos, DO) COVID-19 (Acute) Pneumonia (Acute) Reason for Visit: COVID 19 Subjective: Feels worse today Vitals/I&O's: Vital Signs Temp Pulse Resp BP Pulse Ox 37.0 C 101 H 22 H 131/89 H 96 09/28/20 09:38 09/28/20 10:05 09/28/20 09:38 09/28/20 09:38 09/28/20 09:38 Oxygen Flow Rate (L/min) 4 Oxygen Delivery Method Nasal Cannula Weight: 50.5 kg Body Mass Index (BMI) 19.7 Intake and Output for Last 24 Hours 09/26/20 09/27/20 09/28/20 23:59 23:59 23:59 Intake Total 400 / 400 Balance 400 / 400 General: Alert, No apparent distress HEENT: Atraumatic, Normocephalic Oral: Moist Mucosa, No Gingival or Mucosal Lesions/ Ulcerations Neck: No Nodes, Thyroid Normal Size and Texture Lungs: Clear to auscultation, Diminished Cardiovascular: Regular rate, Regular Rhythm, Normal S1, Normal S2, No murmurs Abdomen: Bowel Sounds Present, Soft, Non Tender, Non-Distended, No Hepato-splenomegaly Extremities: No edema, No Calf Tenderness Psych/Mental Status: Appropriate, Anxious Microbiology Past 72 Hours 09/27/20 09:50 Mucosa - Nose SARS-CoV-2 Antigen (Rapid) - Final SARS-CoV-2 (COVID 19) 09/27/20 09:50 Mucosa - Nose Influenza Types A,B Direct FA (CAIT) - Final Laboratory Results 09/27/20 09:40: D-Dimer Quant (PE/DVT) 3.03 H* 09/27/20 09:40: Alkaline Phosphatase 72 09/27/20 14:32: COVID-19 (YANNICK) Detected 09/28/20 05:46: WBC 14.1 H, RBC 3.18 L, Hgb 10.4 L, Hct 32.4 L, MCV 101.9 H, MCH 32.7 H, MCHC 32.1, RDW Std Deviation 52.6 H, RDW Coeff of Linette 14.0, Plt Count 291, MPV 10.7, Immature Gran % (Auto) 0.400, Neut % (Auto) 93.6 H, Lymph % (Auto) 2.1 L, [place] % (Auto) 3.8, Eos % (Auto) 0.0, Baso % (Auto) 0.1, Absolute Neuts (auto) 13.2 H, Absolute Lymphs (auto) 0.30 L, Nucleated RBC % 0, Differential Comment SCANNED 09/28/20 05:46: Sodium 136, Potassium 3.4 L, Chloride 103, Carbon Dioxide 28.0, Anion Gap 5, BUN 26 H, Creatinine 0.84, Estim Creat Clear Calc 41.87, Est GFR (MDRD) Af Amer 83, Est GFR (MDRD) Non-Af 69, BUN/Creatinine Ratio 30.8 H, Glucose 116 H, Calcium 8.3 L, Total Bilirubin 0.50, AST 29, ALT 20, Alkaline Phosphatase 66, Total Protein 6.4, Albumin 2.6 L, Globulin 3.8, Albumin/Globulin Ratio 0.7 L Current Medications Acetaminophen (Acetaminophen 500 Mg Tablet) 1,000 mg PO Q8H PRN PRN Reason: Pain 1-10 or Fever Albuterol/Ipratropium (Ipratropium/Albuterol Sulfate 3 Ml Ampul.Neb) 3 ml INHALATION Q6HWA.RT [facility] Last Admin: 09/28/20 07:17 Dose: 3 ml Documented by: Aspirin (Aspirin 81 Mg Tab.Chew) 81 mg PO DAILY [facility] Last Admin: 09/28/20 10:03 Dose: 81 mg Documented by: Atorvastatin Calcium (Atorvastatin Calcium 40 Mg Tablet) 40 mg PO DAILY@2200 [facility] Last Admin: 09/27/20 20:39 Dose: 40 mg Documented by: Budesonide (Budesonide Respules 0.5 Mg/2 Ml Ampul.Neb.) 0.5 mg INHALATION Q12H.RT [facility] Last Admin: 09/28/20 07:17 Dose: 0.5 mg Documented by: Buspirone HCl (Buspirone 15 Mg Tablet) 15 mg PO DAILY [facility] Last Admin: 09/28/20 10:02 Dose: 15 mg Documented by: Calcium Carbonate (Calcium (Elemental) 500 Mg Tablet) 500 mg PO BIDCM [facility] Last Admin: 09/28/20 10:01 Dose: 500 mg Documented by: Dexamethasone (Dexamethasone 4 Mg Tablet) 6 mg PO DAILY [facility] Last Admin: 09/28/20 09:59 Dose: 6 mg Documented by: Enoxaparin Sodium (Enoxaparin 40 Mg/0.4 Ml Syringe) 40 mg SC DAILY [facility] Last Admin: 09/28/20 09:59 Dose: 40 mg Documented by: Famotidine (Famotidine 20 Mg Tablet) 20 mg PO BID [facility] Last Admin: 09/28/20 10:03 Dose: 20 mg Documented by: Sodium Chloride () 250 mls @ 15 mls/hr IV .[id number] PRN PRN Reason: Saline Flush Sodium Chloride () 250 mls @ 15 mls/hr IV .[id number] PRN PRN Reason: Additional IVPB Infusion Remdesivir 100 mg/ Sodium (Chloride) 250 mls @ 125 mls/hr IV DAILY [facility] Stop: 10/01/20 11:59 Last Admin: 09/28/20 09:58 Dose: 125 mls/hr Documented by: Isosorbide Mononitrate (Isosorbide Mononitrate 30 Mg Tablet) 30 mg PO DAILY [facility] Last Admin: 09/28/20 10:02 Dose: 30 mg Documented by: Lactobacillus Acidophilus (Lactobacillus Acidophilus) 1 tablet PO DAILY [facility] Last Admin: 09/28/20 10:02 Dose: 1 tablet Documented by: Magnesium Chloride (Magnesium Chloride 64 Mg Delay Rel.Tablet) 64 mg PO BID [facility] Last Admin: 09/28/20 10:00 Dose: 64 mg Documented by: Multivitamins (Multivitamins,Therapeutic Tablet) [facility] Admin: 09/28/20 10:03 Dose: 1 tablet Documented by: Paroxetine HCl (Paroxetine Cr 12.5 Mg Tablet) 37.5 mg PO DAILY [facility] Last Admin: 09/28/20 09:59 Dose: 37.5 mg Documented by: Ramipril (Ramipril 10 Mg Capsule) 10 mg PO DAILY [facility] Last Admin: 09/28/20 10:02 Dose: 10 mg Documented by: Sodium Chloride (0.9% Saline Lock 10 Ml Syringe) 10 - 40 ml IV UD PRN PRN Reason: SALINE FLUSH Last Admin: 09/28/20 10:03 Dose: 10 ml Documented by: STROKE Vital Signs/Narrative: Vital Signs Temp Pulse Resp BP Pulse Ox 09/28/20 10:05 101 H 09/28/20 09:38 37.0 C 101 H 22 H 131/89 H 96 Medical Necessity - Tobacco Use Smoking Status: Former smoker Assessment/Plan All Active Problems (Last Reviewed 09/27/20 @ 13:[address] Ean Chirinos, DO) COVID-19 (Acute) Pneumonia (Acute) Pulmonary edema (Resolved) Pneumonia (Resolved) Physical debility (Acute) Dehydration (Acute) Tachycardia (Acute) 1. Acute COVID 19 pneumonia did receive 1st COVID 19 vaccination on 09/26 when developed fever. Rapid and PCR negative, doubt false positive given lymphopenia and elevated D-dimer. Additionally, given advanced COPD, low threshold to treat 09/27: started dexamethasone (through 10/07) and remdisivir (through ) cannot rule bacterial pneumonia, so will treat with broad spectrum abx (HCAP since hospitalized in last 3 months) 2. Dizziness: Patient currently feeling fine at this time. i suspect the patient had some vertigo previously. 3. Chronic hypoxic respiratory failure: subjectively worse, but on 4 liters currently Patient has advanced COPD. Patient checked her oxygen on room air which was in the 80s which is to be expected. 4. Recent right hip femoral neck fracture: Status post hip replacement on . Follow-up with orthopedics as outpatient. 5. VTE prophylaxis with low molecular weight heparin. IMPROVE VTE score 1%, therefore will not require VTE prophylaxis as outpt. Refer to NIH guidelines (https://www.kywbm06ppdqvgrxkdbloflkaym.nih.gov/adjunctive-therapy/antithrombotic-therapy/) and Chest guidelines (CHEST 2020; 158(3): 3041-2374). 6. Advanced care planning: Discussed with the patient. Patient wishes to be DNR Comfort Care arrest with intubation if necessary. Form the patient that with her severe COPD that she would be very difficult to get off of ventilator if she were ever intubated. Inpatient E&M: 13674 Subs Hosp L2
--- NOTE | 2020-09-28 11:37 | NURSING ---
This nurse in with pt. Pt feels like she is less SOB then she was this morning but this nurse doing vitals and pt only 87% on 4L NC so this nurse incresaed her to 5L NC and no improvement, then increased to 6L NC and had Nathaly from [facility] come up and talk to this nurse. Pt is on a step down monitor at this time. pt also anxious. will consult Dr. Chirinos for something for anxiety.
[2020-09-28] MEDS: Acetaminophen 500 MG Tablet 1000 MG PO (12:01)
[2020-09-28 13:47] LABS: Bacteria 0 SEEN /hpf (None Seen); Mucous, Urine 0 SEEN /hpf (<or=2+); Red Blood Cells-Urine 0 SEEN /hpf (0-5); Squamous Epithelial Cells - UA 0 SEEN /hpf (5-10)
--- NOTE | 2020-09-28 14:01 | CM.UR ---
RN CM Assessment Called patient in her room d/t + Covid Introduced role of RN CM to patient.? Patient is alert, oriented and able?to participate in RN CM Assessment. ?Care providers, pharmacy, and demographics verified. Presentation: Shortness of breath Admit Dx: + covid, + COPD Re-Admit: Yes Barriers/Issues: none PCP: Dr. King Specialists: Heidi Riojas Preferred [facility]acy: [facility] Insurance: MCR with [employer] Supplement Rx Benefit:? [employer] LNOK: Daughter, Piper LW/HPOA: Daughter Piper is HCPOA, scanned into chart Living Arrangements:? Lives alone but daughter lives at end of drive [address]. ADL?s: previously was independent until fall almost a month ago. Has been to rehab unit. States doing most everything by herself but sometimes prefers to have daughter present for safety, for example --bathing. States she will be going to daughter's house to shower. Transportation: Daughter takes her to appointments. DME: cne, walker, wheelchair. Also is on 3 liters O2 from [employer] HHC: None SNF: Been to rehab unit Goal: Wants to go back home and resume OP therapy, if possible. DC PLAN: Home. Discussed OP therapy vs HHC. Alerted patient that case management will continue to follow her for resumption of therapy-->home care therapy vs OP. Verb understanding. Shaniqua Sanchez, DIANE, [facility].
[2020-09-28 14:02] LABS: Color, Urine Yellow (Yellow); Glucose, Dipstick Normal (Normal); Ketone-Dipstick Negative (Negative); Leukocyte Esterase-Dipstick 25 /ul (Negative); Nitrite-Dipstick Negative (Negative); Occult Blood-Urine 10 /ul (Negative); Protein-Dipstick 30 mg/dl (Negative); Specific Gravity, Urine 1.025 (1.002-1.030); Urine Bilirubin Dipstick Negative (Negative); Urine Clarity Clear (Clear); Urine Urobilinogen Normal (Normal)
[2020-09-28 14:21] LABS: Amorphous Sediment 2+; White Blood Cells 0-5 SEEN /hpf (0-5)
--- NOTE | 2020-09-28 15:58 | NURSING ---
Sat in chair for 3hrs. pt being using Incentive Spirometer today, reminded pt twice today that she needs to use it Q1hr and do 10 reps, pt understands.
--- NOTE | 2020-09-28 18:21 | PCM.RX.CS ---
Consult Pharmacy has been consulted to manage selected antiobiotic: Vancomycin Type of Consult: New start Prior Doses of Antibiotics Received/Current Regimen: Medications Discontinued Medications Vancomycin HCl 1,250 mg/ (Sodium Chloride) 275 mls @ 167 mls/hr IV X1 ONE Stop: 09/28/20 14:08 Last Admin: 09/28/20 16:01 Dose: Infused Documented by: Labs: Sodium 136 mmol/L (136-145) 09/28/20 05:46 Potassium 3.4 mmol/L (3.5-5.1) L 09/28/20 05:46 Chloride 103 mmol/L (98-107) 09/28/20 05:46 Carbon Dioxide 28.0 mmol/L (21.0-32.0) 09/28/20 05:46 Anion Gap 5 (5-15) 09/28/20 05:46 BUN 26 mg/dL (7-18) H 09/28/20 05:46 Creatinine 0.84 mg/dL (0.55-1.02) 09/28/20 05:46 Est GFR (MDRD) Af Amer 83 mL/min (>60) 09/28/20 05:46 Est GFR (MDRD) Non-Af 69 mL/min (>60) 09/28/20 05:46 BUN/Creatinine Ratio 30.8 RATIO (10-20) H 09/28/20 05:46 Glucose 116 mg/dL (74-106) H 09/28/20 05:46 Microbiology: Microbiology 09/28/20 12:30 Urine Catheter - Cardona Legionella Antigen - Final 09/28/20 12:30 Urine Catheter - Cardona Streptococcus pneumoniae Antigen (M - Final 09/27/20 09:50 Mucosa - Nose SARS-CoV-2 Antigen (Rapid) - Final SARS-CoV-2 (COVID 19) 09/27/20 09:50 Mucosa - Nose Influenza Types A,B Direct FA (CAIT) - Final Weight used for dosin kg Estimated Creatinine Clearance: 42 mL/min Goal Trough: 15-20 mcg/mL Pharmacy Plan for Drug Dosing: Vancomycin 1250mg IV x1 followed by 1g q24h with trough prior to 3rd dose per policy. Pharmacy Service will continue to monitor and adjust dosing as required. Follow-Up Labs: Trough Vancomycin - 09/30 @ 1530
--- NOTE | 2020-09-28 18:44 | NURSING ---
Pt has not voided the last 8hrs, this nurse st. cathed for 50cc at 1230 today. Bladder scanned at this time for 106ml. BP low, see intervention. pt not dizzy or lightheaded. This nurse will contact Dr. santana.
[2020-09-28] MEDS: Atorvastatin Calcium 40 MG Tablet PO (20:10)
[2020-09-29] VITALS (15 sets, daily range): BP systolic 98–138; BP diastolic 55–93; PULSE 75–92; RESP 17–24; TEMP 36.6–36.8; O2SAT 84–97
--- NOTE | 2020-09-29 02:24 | NURSING ---
Was told in report that pt was to receive 500ml NS as a bolus at a rate of 150ml/hr. There was no stop time on NOV, so pt was given 500ml more, then order was d/c'd. Pt urine output has been sufficient and BP has stabilized. Lung sounds are clear diminished.
[2020-09-29 06:44] LABS: Absolute Lymphocyte Count 0.51 X10^3/uL (0.83-4.51); Absolute Neutrophil Count 11.1 X10^3/uL (2.0-7.7); Basophil# 0.02 X10^3/uL; Basophil% 0.2 % (0-1); Hematocrit 28.4 % (37-47); Hemoglobin 9.2 g/dL (12.0-15.0); Lymphocyte # 0.51 X10^3/ul (4.0); Lymphocyte % 4.1 % (19-41); Mean Corp Hgb Conc 32.4 g/dL (32-36); Mean Corpuscular Hgb 33.1 pg (27.0-32.0); Mean Corpuscular Volume 102.2 fL (81-99); Monocyte# 0.64 X10^3/uL; Monocyte% 5.2 % (0-10); NRBC Flagged by Analyzer 0 % (0-5); Neutrophil % 90.1 % (47-70); POSITIVE DIFFERENTIAL YES; Platelet Count 278 K/mm3 (150-450); RBC Distribution Width CV 14.4 % (11.6-14.6); RBC Distribution Width SD 54.2 fl (35.1-43.9); Red Blood Count 2.78 M/mm3 (4.2-5.4); White Blood Count 12.3 K/mm3 (4.4-11.0)
[2020-09-29 06:53] LABS: Differential Indicated SCAN CRITERIA MET
[2020-09-29 07:09] LABS: ALB/GLOB Ratio 0.6 RATIO (0.9-2.4); AST(SGOT) 30 U/L (15-37); Alanine Aminotransfer ALT/SGPT 20 U/L (13-56); Albumin, Serum 2.2 g/dL (3.2-5.0); Alkaline Phosphatase 54 U/L (45-117); Anion Gap 3 (5-15); BUN 27 mg/dL (7-18); BUN/Creat Ratio 37.5 RATIO (10-20); Calcium,Total 7.8 mg/dL (8.5-10.1); Chloride 112 mmol/L (98-107); Creatinine, Serum 0.72 mg/dL (0.55-1.02); EST Glomerular Filtration Rate 83 mL/min (>60); Est Glom Filt Rate - Afr Amer 100 mL/min (>60); Estimated Creatinine Clearance 35.17 ml/min; Globulin 3.6 g/dL (2.2-4.2); Glucose 121 mg/dL (74-106); Potassium 3.9 mmol/L (3.5-5.1); Protein, Total 5.8 g/dL (6.4-8.2); Sodium Level 142 mmol/L (136-145)
[2020-09-29 07:13] LABS: Anisocytosis RARE; Differential Comment SCANNED; Macrocytosis RARE
[2020-09-29] MEDS: Budesonide Respules 0.5 MG/2 ML AMPUL.NEB. INHALATION ×2 (07:28→18:55)
[2020-09-29] MEDS: Magnesium Chloride 64 MG Delay Rel.Tablet PO ×2 (08:52→19:54)
[2020-09-29] MEDS: Famotidine 20 MG Tablet PO ×2 (08:52→19:53)
[2020-09-29] MEDS: Ramipril 10 MG Capsule PO (08:52)
[2020-09-29] MEDS: Calcium (Elemental) 500 MG Tablet PO ×2 (08:53→19:53)
[2020-09-29] MEDS: busPIRone 15 MG TABLET PO (08:53)
[2020-09-29] MEDS: Multivitamins,Therapeutic Tablet 1 TABLET PO (08:53)
[2020-09-29] MEDS: Isosorbide Mononitrate 30 MG Tablet PO (08:53)
[2020-09-29] MEDS: Aspirin 81 MG TAB.CHEW PO (08:53)
[2020-09-29] MEDS: PARoxetine CR 12.5 MG Tablet 37.5 MG PO (08:54)
[2020-09-29] MEDS: dexAMETHasone 4 MG Tablet 6 MG PO (08:54)
[2020-09-29] MEDS: Enoxaparin 40 MG/0.4 ML Syringe SC (08:54)
--- NOTE | 2020-09-29 10:11 | PN_ITS ---
Patient Problems: Active and Suspected Problems (Last Reviewed 09/27/20 @ 13:[address] Ean Chirinos, DO) COVID-19 (Acute) Pneumonia (Acute) Reason for Visit: COVID 19 Subjective: Had increased shortness of breath yesterday, feeling better, but oxygen requirements have gone up. Vitals/I&O's: Vital Signs Temp Pulse Resp BP Pulse Ox 36.8 C 85 17 129/71 H 84 09/29/20 08:18 09/29/20 08:18 09/29/20 08:18 09/29/20 08:18 09/29/20 08:18 Oxygen Flow Rate (L/min) 4 Oxygen Delivery Method Nasal Cannula Weight: 50.5 kg Body Mass Index (BMI) 19.7 Intake and Output for Last 24 Hours 09/27/20 09/28/20 09/29/20 23:59 23:59 23:59 Intake Total 400 / 400 1302.5 / 1302.5 793.25 / 793.25 Output Total 50 / 200 700 / 700 Balance 400 / 400 1252.5 / 1102.5 93.25 / 93.25 General: Alert, No apparent distress HEENT: Atraumatic, Normocephalic Oral: Moist Mucosa, No Gingival or Mucosal Lesions/ Ulcerations Neck: No Nodes, Thyroid Normal Size and Texture Lungs: Diminished, - - bibasilar crackles. Cardiovascular: Regular rate, Regular Rhythm, Normal S1, Normal S2, No murmurs Abdomen: Bowel Sounds Present, Soft, Non Tender, Non-Distended, No Hepato- splenomegaly Extremities: No edema, No Calf Tenderness Skin: No rashes, No breakdown Musculoskeletal: No Tenderness to Palpation of Joints or Extremities, No Muscle Wasting Psych/Mental Status: Normal Affect, Appropriate Microbiology Past 72 Hours 09/27/20 09:40 Blood Culture (Wb) - Right Forearm Blood Culture - Preliminary No growth in 48 hours. 09/27/20 09:40 Blood Culture (Wb) - Anticubital Left Blood Culture - Preliminary No growth in 48 hours. 09/28/20 12:30 Urine Catheter - Cardona Legionella Antigen - Final 09/28/20 12:30 Urine Catheter - Cardona Streptococcus pneumoniae Antigen (M - Final 09/27/20 09:50 Mucosa - Nose SARS-CoV-2 Antigen (Rapid) - Final SARS-CoV-2 (COVID 19) 09/27/20 09:50 Mucosa - Nose Influenza Types A,B Direct FA (CAIT) - Final Laboratory Results 09/27/20 12:30: Urine Color Yellow, Urine Clarity Clear, Urine pH 5.0, Ur Specific [place] 1.025, Urine Protein 30 H, Urine Glucose (UA) Normal, Urine Ketones Negative, Urine Occult Blood 10 H, Urine Nitrite Negative, Urine Bilirubin Negative, Urine Urobilinogen Normal, Ur Leukocyte Esterase 25 H, Urine RBC 0 SEEN, Urine WBC 0-5 SEEN, Ur Squamous Epith Cells 0 SEEN, Amorphous Sediment 2+, Urine Bacteria 0 SEEN, Urine Mucus 0 SEEN 09/29/20 06:20: WBC 12.3 H, RBC 2.78 L, Hgb 9.2 L, Hct 28.4 L, MCV 102.2 H, MCH 33.1 H, MCHC 32.4, RDW Std Deviation 54.2 H, RDW Coeff of Linette 14.4, Plt Count 278, MPV 11.0, Immature Gran % (Auto) 0.400, Neut % (Auto) 90.1 H, Lymph % (Auto) 4.1 L, [place] % (Auto) 5.2, Eos % (Auto) 0.0, Baso % (Auto) 0.2, Absolute Neuts (auto) 11.1 H, Absolute Lymphs (auto) 0.51 L, Nucleated RBC % 0, Differential Comment SCANNED, Anisocytosis RARE, Macrocytosis RARE 09/29/20 06:20: Sodium 142, Potassium 3.9, Chloride 112 H, Carbon Dioxide 27.0, Anion Gap 3 L, BUN 27 H, Creatinine 0.72, Estim Creat Clear Calc 35.17, Est GFR (MDRD) Af Amer 100, Est GFR (MDRD) Non-Af 83, BUN/Creatinine Ratio 37.5 H, Glucose 121 H, Calcium 7.8 L, Total Bilirubin 0.40, AST 30, ALT 20, Alkaline Phosphatase 54, Total Protein 5.8 L, Albumin 2.2 L, Globulin 3.6, Albumin/Globulin Ratio 0.6 L Current Medications Acetaminophen (Acetaminophen 500 Mg Tablet) 1,000 mg PO Q8H PRN PRN Reason: Pain 1-10 or Fever Last Admin: 09/28/20 12:01 Dose: 1,000 mg Documented by: Albuterol Sulfate (Albuterol Sulfate 8 Gm Inhaler (60 Puffs)) 2 puff INHALATION Q4H PRN PRN PRN Reason: SHORTNESS OF BREATH Aspirin (Aspirin 81 Mg Tab.Chew) 81 mg PO DAILY [facility] Last Admin: 09/29/20 08:53 Dose: 81 mg Documented by: Atorvastatin Calcium (Atorvastatin Calcium 40 Mg Tablet) 40 mg PO DAILY@2200 [facility] Last Admin: 09/28/20 20:10 Dose: 40 mg Documented by: Budesonide (Budesonide Respules 0.5 Mg/2 Ml Ampul.Neb.) 0.5 mg INHALATION Q12H.RT [facility] Last Admin: 09/29/20 07:28 Dose: 0.5 mg Documented by: Buspirone HCl (Buspirone 15 Mg Tablet) 15 mg PO DAILY [facility] Last Admin: 09/29/20 08:53 Dose: 15 mg Documented by: Calcium Carbonate (Calcium (Elemental) 500 Mg Tablet) 500 mg PO BID [facility] Last Admin: 09/29/20 08:53 Dose: 500 mg Documented by: Dexamethasone (Dexamethasone 4 Mg Tablet) 6 mg PO DAILY [facility] Last Admin: 09/29/20 08:54 Dose: 6 mg Documented by: Enoxaparin Sodium (Enoxaparin 40 Mg/0.4 Ml Syringe) 40 mg SC DAILY [facility] Last Admin: 09/29/20 08:54 Dose: 40 mg Documented by: Famotidine (Famotidine 20 Mg Tablet) 20 mg PO BID [facility] Last Admin: 09/29/20 08:52 Dose: 20 mg Documented by: Sodium Chloride () 250 mls @ 15 mls/hr IV .[id number] PRN PRN Reason: Saline Flush Last Infusion: 09/29/20 04:54 Dose: 0 mls/hr Documented by: Sodium Chloride () 250 mls @ 15 mls/hr IV .[id number] PRN PRN Reason: Additional IVPB Infusion Remdesivir 100 mg/ Sodium (Chloride) 250 mls @ 125 mls/hr IV DAILY [facility] Stop: 10/01/20 11:59 Last Admin: 09/29/20 09:56 Dose: 125 mls/hr Documented by: Piperacillin Sod/Tazobactam (Sod 3.375 gm/ Sodium Chloride) 50 mls @ 12.5 mls/hr IV Q8 [facility] Last Infusion: 09/29/20 09:10 Dose: Infused Documented by: Vancomycin IV Pharmacy to Dose (1 ea/ Sodium Chloride) 500 mls @ 250 mls/hr IV X1 PRN; Protocol PRN Reason: Rx to Dose Vancomycin HCl (Vancomycin) 1,000 mg in 200 mls @ 200 mls/hr IV Q24H [facility] Isosorbide Mononitrate (Isosorbide Mononitrate 30 Mg Tablet) 30 mg PO DAILY [facility] Last Admin: 09/29/20 08:53 Dose: 30 mg Documented by: Lactobacillus Acidophilus (Lactobacillus Acidophilus) 1 tablet PO DAILY [facility] Last Admin: 09/29/20 08:52 Dose: 1 tablet Documented by: Lorazepam (Lorazepam 0.5 Mg Tablet) 0.5 mg PO Q6H PRN PRN PRN Reason: ANXIETY Magnesium Chloride (Magnesium Chloride 64 Mg Delay Rel.Tablet) 64 mg PO BID [facility] Last Admin: 09/29/20 08:52 Dose: 64 mg Documented by: Miscellaneous Information (Inhaler, Assist Devices 1 Each Spacer) 0 each INHALATION PRN PRN PRN Reason: WITH INHALER Multivitamins (Multivitamins,Therapeutic Tablet) 1 tablet PO DAILY [facility] Last Admin: 09/29/20 08:53 Dose: 1 tablet Documented by: Paroxetine HCl (Paroxetine Cr 12.5 Mg Tablet) 37.5 mg PO DAILY [facility] Last Admin: 09/29/20 08:54 Dose: 37.5 mg Documented by: Ramipril (Ramipril 10 Mg Capsule) 10 mg PO DAILY [facility] Last Admin: 09/29/20 08:52 Dose: 10 mg Documented by: Sodium Chloride (0.9% Saline Lock 10 Ml Syringe) 10 - 40 ml IV UD PRN PRN Reason: SALINE FLUSH Last Admin: 09/28/20 10:03 Dose: 10 ml Documented by: STROKE Vital Signs/Narrative: Vital Signs Temp Pulse Resp BP Pulse Ox 09/29/20 08:18 36.8 C 85 17 129/71 H 84 09/29/20 07:29 89 20 H 09/29/20 07:28 91 09/29/20 07:00 83 Medical Necessity - Tobacco Use Smoking Status: Former smoker Assessment/Plan All Active Problems (Last Reviewed 09/27/20 @ 13:[address] Ean Chirinos DO) COVID-19 (Acute) Pneumonia (Acute) Pulmonary edema (Resolved) Pneumonia (Resolved) Physical debility (Acute) Dehydration (Acute) Tachycardia (Acute) 1. Acute COVID 19 pneumonia * did receive 1st COVID 19 vaccination on 09/26 when developed fever. * Rapid and PCR negative, doubt false positive given lymphopenia and elevated D- dimer. Additionally, given advanced COPD, low threshold to treat * 09/27: started dexamethasone (through 10/07) and remdisivir (through ) * cannot rule bacterial pneumonia, so will treat with broad spectrum abx (HCAP since hospitalized in last 3 months) * symptoms began 09/26. patient will need to quarantine through 10/17/2020 2. Dizziness: * Patient currently feeling fine at this time. i suspect the patient had some vertigo (BPPV). 3. Chronic hypoxic respiratory failure: * COPD + bronchiectasis * subjectively improved, but increased O2 requirements * Given extensive CT evidence of emphysema, pt with higher likelihood of decompensation * Patient has advanced COPD. Unknown GOLD Classification, but suspect III or IV. * Check records from Dr. Joy's office. Follow up with Dr. Joy as outpt. 4. Possible Gram negative pneumonia * RLL infiltrate v bronchiectasis v chronic changes * Low threshold to treat given advanced COPD * Legionella and strep antigen negative * SCx not collected yet * If infectious work up negative, consider discontinuing antibiotics 5. Recent right hip femoral neck fracture: * Status post hip replacement on third. Follow-up with orthopedics as outpatient. * PT OT * weight-bearing as tolerated 6. VTE prophylaxis * with low molecular weight heparin. * IMPROVE VTE score 1%, therefore will not require VTE prophylaxis as outpt. * Refer to NIH guidelines (https://www.fpegb46qagacjengykiwnmpinh.nih.gov/adjunctive-therapy/antithrombo tic-therapy/) and Chest guidelines (CHEST 2020; 158(3): 9611-3032). 7. Advanced care planning: Discussed with the patient. Patient wishes to be DNR Comfort Care arrest with intubation if necessary. Informed the patient that with her severe COPD that she would be very difficult to get off of ventilator if she were ever intubated. Inpatient E&M: 30521 [facility] Hosp L2
--- NOTE | 2020-09-29 13:48 | NURSING ---
Spo2 at 0818 was increased to 6L NC d/t saturations dropping on the current 4L of NC. Pt was fine on this until about 0940. Spo2 kept dropping to 81-82% on 6L NC. At that time this nurse, took pt off regular Nasal Canula and put on Highflow Nasal Canula at 12L. This nurse informed Nathaly from Respiratory and that pt spo2 now around 89-91%. If pt talks, spo2 tends to drop into the mid 80's. Will continue to monitor as pt is on a step down monitor.
[2020-09-29] MEDS: Vancomycin IV 1,000 MG/200 ML BAG 200 MG IV (17:38)
--- NOTE | 2020-09-29 18:55 | CPS ---
decreased liter flow to 14
[2020-09-29 19:16] LABS: Base Excess 1 mmol/L (-2 to +2); Bicarbonate 25.3 mmol/L (22-26); Blood Gas Specimen Type ART; O2 Delivery Device HFNC; PO2 54 mmHG (75-100); SITE L Radial; SO2 89 % (95-99); Total Carbon Dioxide 26 mmol/L; pCO2 37.4 mmHg (35-45); pH 7.44 (7.35-7.45)
[2020-09-29] MEDS: Atorvastatin Calcium 40 MG Tablet PO (19:53)
--- NOTE | 2020-09-29 20:37 | PCS.PANDOC ---
PANDEMIC DOCUMENTATION INITIATED: Date: 09/28/20 Time:
--- NOTE | 2020-09-29 23:01 | CPS ---
O2 decreased to 11 LPM
[2020-09-30] VITALS (17 sets, daily range): BP systolic 143–170; BP diastolic 79–95; PULSE 75–102; RESP 12–26; TEMP 36.3–36.6; O2SAT 78–99
[2020-09-30 06:12] LABS: Absolute Lymphocyte Count 0.96 X10^3/uL (0.83-4.51); Absolute Neutrophil Count 10.8 X10^3/uL (2.0-7.7); Basophil# 0.01 X10^3/uL; Basophil% 0.1 % (0-1); Hematocrit 31.3 % (37-47); Hemoglobin 9.9 g/dL (12.0-15.0); Lymphocyte # 0.96 X10^3/ul (4.0); Lymphocyte % 7.5 % (19-41); Mean Corp Hgb Conc 31.6 g/dL (32-36); Mean Corpuscular Hgb 32.7 pg (27.0-32.0); Mean Corpuscular Volume 103.3 fL (81-99); Mean Platelet Vol. 11.4 fl (6.2-12.0); Monocyte# 0.93 X10^3/uL; Monocyte% 7.3 % (0-10); NRBC Flagged by Analyzer 0 % (0-5); Neutrophil # 10.84 X10^3/uL (2.7-7.7); Neutrophil % 84.5 % (47-70); Platelet Count 299 K/mm3 (150-450); RBC Distribution Width CV 14.5 % (11.6-14.6); RBC Distribution Width SD 55.2 fl (35.1-43.9); Red Blood Count 3.03 M/mm3 (4.2-5.4); White Blood Count 12.8 K/mm3 (4.4-11.0)
[2020-09-30 06:44] LABS: ALB/GLOB Ratio 0.7 RATIO (0.9-2.4); AST(SGOT) 37 U/L (15-37); Alanine Aminotransfer ALT/SGPT 23 U/L (13-56); Albumin, Serum 2.3 g/dL (3.2-5.0); Alkaline Phosphatase 62 U/L (45-117); Anion Gap 4 (5-15); BUN 25 mg/dL (7-18); BUN/Creat Ratio 31.2 RATIO (10-20); Chloride 108 mmol/L (98-107); EST Glomerular Filtration Rate 73 mL/min (>60); Est Glom Filt Rate - Afr Amer 88 mL/min (>60); Estimated Creatinine Clearance 43.97 ml/min; Globulin 3.5 g/dL (2.2-4.2); Glucose 101 mg/dL (74-106); Potassium 4.1 mmol/L (3.5-5.1); Protein, Total 5.8 g/dL (6.4-8.2); Sodium Level 140 mmol/L (136-145)
[2020-09-30] MEDS: Budesonide Respules 0.5 MG/2 ML AMPUL.NEB. INHALATION ×2 (06:52→19:37)
--- NOTE | 2020-09-30 07:50 | PCM.PN.HOSP ---
Patient Problems: Active and Suspected Problems (Last Reviewed 09/27/20 @ 13:[address] Ean Chirinos, DO) COVID-19 (Acute) Pneumonia (Acute) Reason for Visit: Follow-up for acute hypoxic respiratory failure secondary to COVID-19 pneumonia and COPD exacerbation. Objective: Patient is still short of breath. No wheezing. On BiPAP in the morning. Denies chest pain or pressure. No significant sputum production or wheezing. Physical exam General: Alert, Oriented x3, Cooperative HEENT: Atraumatic, PERRLA, EOMI, Normocephalic Oral: No Gingival or Mucosal Lesions/ Ulcerations Neck: Supple, No JVD, Negative Carotid Bruits Lungs: Air entry severely diminished in both lungs. On BiPAP no crepitation/rhonchi Cardiovascular: Regular rate, Regular Rhythm, Normal S1, Normal S2, No murmurs Abdomen: Bowel Sounds Present, Soft, Non Tender, Non-Distended : No renal angle tenderness. No suprapubic tenderness. Extremities: No edema, Capillary Refill Less than 3 Seconds Skin: No rashes, No breakdown Musculoskeletal: No Tenderness to Palpation of Joints or Extremities Neurological: Cranial nerves II-XII grossly intact, Deep Tendon Reflexes 2+/4 and Symmetrical, Neuro grossly intact Psych/Mental Status: Normal Affect, Appropriate. Vitals/I&O's: Vital Signs Temp Pulse Resp BP Pulse Ox 98 F 78 21 H 138/89 H 92 09/29/20 22:15 09/30/20 07:12 09/30/20 07:12 09/29/20 22:15 09/30/20 07:12 Oxygen Flow Rate (L/min) 10 Oxygen Delivery Method Nasal Cannula Weight: 111 lb 5.335 oz Body Mass Index (BMI) 19.7 Intake and Output for Last 24 Hours 09/28/20 09/29/20 09/30/20 23:59 23:59 23:59 Intake Total 1302.5 / 1302.5 1893.25 / 1893.25 150 / 150 Output Total 50 / 200 1300 / 1300 Balance 1252.5 / 1102.5 593.25 / 593.25 150 / 150 Microbiology Past 72 Hours 09/27/20 09:40 Blood Culture (Wb) - Right Forearm Blood Culture - Preliminary No growth in 48 hours. 09/27/20 09:40 Blood Culture (Wb) - Anticubital Left Blood Culture - Preliminary No growth in 48 hours. 09/28/20 12:30 Urine Catheter - Cardona Legionella Antigen - Final 09/28/20 12:30 Urine Catheter - Cardona Streptococcus pneumoniae Antigen (M - Final 09/27/20 09:50 Mucosa - Nose SARS-CoV-2 Antigen (Rapid) - Final SARS-CoV-2 (COVID 19) 09/27/20 09:50 Mucosa - Nose Influenza Types A,B Direct FA (CAIT) - Final Laboratory Results 09/29/20 19:09: Specimen Type ART, Sample Site L Radial, pH 7.44, Bicarbonate Actual 25.3, Total CO2 26, Base Excess 1, O2 Saturation 89 L, ABG pCO2 37.4, ABG pO2 54 L, O2 Delivery Device HFNC, Liter Flow 15.0 09/30/20 05:20: WBC 12.8 H, RBC 3.03 L, Hgb 9.9 L, Hct 31.3 L, MCV 103.3 H, MCH 32.7 H, MCHC 31.6 L, RDW Std Deviation 55.2 H, RDW Coeff of Linette 14.5, Plt Count 299, MPV 11.4, Immature Gran % (Auto) 0.600, Neut % (Auto) 84.5 H, Lymph % (Auto) 7.5 L, [place] % (Auto) 7.3, Eos % (Auto) 0.0, Baso % (Auto) 0.1, Absolute Neuts (auto) 10.8 H, Absolute Lymphs (auto) 0.96, Nucleated RBC % 0 09/30/20 05:20: Sodium 140, Potassium 4.1, Chloride 108 H, Carbon Dioxide 28.0, Anion Gap 4 L, BUN 25 H, Creatinine 0.80, Estim Creat Clear Calc 43.97, Est GFR (MDRD) Af Amer 88, Est GFR (MDRD) Non-Af 73, BUN/Creatinine Ratio 31.2 H, Glucose 101, Calcium 8.0 L, Total Bilirubin 0.40, AST 37, ALT 23, Alkaline Phosphatase 62, Total Protein 5.8 L, Albumin 2.3 L, Globulin 3.5, Albumin/Globulin Ratio 0.7 L Current Medications Acetaminophen (Acetaminophen 500 Mg Tablet) 1,000 mg PO Q8H PRN PRN Reason: Pain 1-10 or Fever Last Admin: 09/28/20 12:01 Dose: 1,000 mg Documented by: Albuterol Sulfate (Albuterol Sulfate 8 Gm Inhaler (60 Puffs)) 2 puff INHALATION Q4H PRN PRN PRN Reason: SHORTNESS OF BREATH Aspirin (Aspirin 81 Mg Tab.Chew) 81 mg PO DAILY [facility] Last Admin: 09/29/20 08:53 Dose: 81 mg Documented by: Atorvastatin Calcium (Atorvastatin Calcium 40 Mg Tablet) 40 mg PO DAILY@2200 [facility] Last Admin: 09/29/20 19:53 Dose: 40 mg Documented by: Budesonide (Budesonide Respules 0.5 Mg/2 Ml Ampul.Neb.) 0.5 mg INHALATION Q12H.RT [facility] Last Admin: 09/30/20 06:52 Dose: 0.5 mg Documented by: Buspirone HCl (Buspirone 15 Mg Tablet) 15 mg PO DAILY [facility] Last Admin: 09/29/20 08:53 Dose: 15 mg Documented by: Calcium Carbonate (Calcium (Elemental) 500 Mg Tablet) 500 mg PO BID [facility] Last Admin: 09/29/20 19:53 Dose: 500 mg Documented by: Dexamethasone (Dexamethasone 4 Mg Tablet) 6 mg PO DAILY [facility] Stop: 10/05/20 23:59 Last Admin: 09/29/20 08:54 Dose: 6 mg Documented by: Enoxaparin Sodium (Enoxaparin 40 Mg/0.4 Ml Syringe) 40 mg SC DAILY [facility] Last Admin: 09/29/20 08:54 Dose: 40 mg Documented by: Famotidine (Famotidine 20 Mg Tablet) 20 mg PO BID [facility] Last Admin: 09/29/20 19:53 Dose: 20 mg Documented by: Sodium Chloride () 250 mls @ 15 mls/hr IV .[id number] PRN PRN Reason: Saline Flush Last Infusion: 09/29/20 04:54 Dose: 0 mls/hr Documented by: Sodium Chloride () 250 mls @ 15 mls/hr IV .[id number] PRN PRN Reason: Additional IVPB Infusion Remdesivir 100 mg/ Sodium (Chloride) 250 mls @ 125 mls/hr IV DAILY [facility] Stop: 10/01/20 11:59 Last Infusion: 09/29/20 11:56 Dose: Infused Documented by: Piperacillin Sod/Tazobactam (Sod 3.375 gm/ Sodium Chloride) 50 mls @ 12.5 mls/hr IV Q8 [facility] Last Admin: 09/30/20 06:18 Dose: 12.5 mls/hr Documented by: Vancomycin IV Pharmacy to Dose (1 ea/ Sodium Chloride) 500 mls @ 250 mls/hr IV X1 PRN; Protocol PRN Reason: Rx to Dose Vancomycin HCl (Vancomycin) 1,000 mg in 200 mls @ 200 mls/hr IV Q24H [facility] Last Infusion: 09/29/20 19:21 Dose: Infused Documented by: Isosorbide Mononitrate (Isosorbide Mononitrate 30 Mg Tablet) 30 mg PO DAILY [facility] Last Admin: 09/29/20 08:53 Dose: 30 mg Documented by: Lactobacillus Acidophilus (Lactobacillus Acidophilus) 1 tablet PO DAILY [facility] Last Admin: 09/29/20 08:52 Dose: 1 tablet Documented by: Lorazepam (Lorazepam 0.5 Mg Tablet) 0.5 mg PO Q6H PRN PRN PRN Reason: ANXIETY Magnesium Chloride (Magnesium Chloride 64 Mg Delay Rel.Tablet) 64 mg PO BID [facility] Last Admin: 09/29/20 19:54 Dose: 64 mg Documented by: Miscellaneous Information (Inhaler, Assist Devices 1 Each Spacer) 0 each INHALATION PRN PRN PRN Reason: WITH INHALER Multivitamins (Multivitamins,Therapeutic Tablet) 1 tablet PO DAILY [facility] Last Admin: 09/29/20 08:53 Dose: 1 tablet Documented by: Paroxetine HCl (Paroxetine Cr 12.5 Mg Tablet) 37.5 mg PO DAILY [facility] Last Admin: 09/29/20 08:54 Dose: 37.5 mg Documented by: Ramipril (Ramipril 10 Mg Capsule) 10 mg PO DAILY [facility] Last Admin: 09/29/20 08:52 Dose: 10 mg Documented by: Sodium Chloride (0.9% Saline Lock 10 Ml Syringe) 10 - 40 ml IV UD PRN PRN Reason: SALINE FLUSH Last Admin: 09/28/20 10:03 Dose: 10 ml Documented by: STROKE Vital Signs/Narrative: Vital Signs Pulse Resp Pulse Ox 09/30/20 07:12 78 21 H 92 09/30/20 04:00 88 21 H Medical Necessity - Tobacco Use Smoking Status: Former smoker Assessment/Plan All Active Problems (Last Reviewed 09/27/20 @ 13:[address] Ean Chirinos, DO) COVID-19 (Acute) Pneumonia (Acute) Pulmonary edema (Resolved) Pneumonia (Resolved) Physical debility (Acute) Dehydration (Acute) Tachycardia (Acute) This 79-year-old female with history of COPD on 3 L of home oxygen was admitted with fever 102 Fahrenheit, hypoxia, dizziness on 09/26 after she had COVID-19 vaccination. Patient had Levaquin in ED. 1. Acute COVID 19 pneumonia: Chest CT scan showed no evidence of PE but emphysematous changes the right upper lobe and bronchiectasis in both lower lobes, worse on RLL and new focal infiltrate in RLL. Patient had first COVID-19 vaccination on 09/26 and developed fever. COVID-19 rapid antigen is positive and patient has fever, lymphopenia and elevated D-dimer. On dexamethasone and remdesivir, through 10/01. On broad-spectrum antibiotic with suspicion of HCAP as patient was hospitalized last 3 months. ID has been consulted. On IV Zosyn. Urinary antigens are negative. Blood cultures x2 are negative for more than 48 hours. Urine culture pending. 2. Dizziness: Probably due to BPPV, vertigo: Resolved. 3. Chronic hypoxic respiratory failure due to COPD and bronchiectasis as mentioned above. Patient follows Dr. Joy. 4. Possible Gram negative pneumonia: CT findings as mentioned above. 5. Recent right hip femoral neck fracture: Patient had recent right total hip replacement by Dr. Arreaga on 09/08. PT and OT to continue 6. VTE prophylaxis: On enoxaparin 40 mg subcu daily. 7. Advanced care planning: Patient wishes to be DNR Comfort Care arrest with intubation if necessary. Clinical Impression(s) from Imaging Studies Chest X-Ray 09/27/20 10:30 IMPRESSION: Persistent bibasilar infiltrates worse on the left side although there has been moderate clearing as compared to prior study. This is superimposed on emphysematous changes and pulmonary scarring. Chest CTA 09/27/20 10:36 IMPRESSION: No evidence of pulmonary embolism. Improved aeration of both lungs as compared to prior study with residual changes present superimposed on emphysematous changes and bronchiectasis. Inpatient E&M: [id number] [facility] Hosp L2
[2020-09-30] MEDS: Enoxaparin 40 MG/0.4 ML Syringe SC (09:08)
[2020-09-30] MEDS: busPIRone 15 MG TABLET PO (09:08)
[2020-09-30] MEDS: Calcium (Elemental) 500 MG Tablet PO ×2 (09:08→22:37)
[2020-09-30] MEDS: Ramipril 10 MG Capsule PO (09:08)
[2020-09-30] MEDS: dexAMETHasone 4 MG Tablet 6 MG PO (09:08)
[2020-09-30] MEDS: Aspirin 81 MG TAB.CHEW PO (09:08)
[2020-09-30] MEDS: Multivitamins,Therapeutic Tablet 1 TABLET PO (09:08)
[2020-09-30] MEDS: Magnesium Chloride 64 MG Delay Rel.Tablet PO ×2 (09:08→22:38)
[2020-09-30] MEDS: Famotidine 20 MG Tablet PO (09:08)
[2020-09-30] MEDS: Isosorbide Mononitrate 30 MG Tablet PO (09:08)
[2020-09-30] MEDS: PARoxetine CR 12.5 MG Tablet 37.5 MG PO (09:08)
--- NOTE | 2020-09-30 15:04 | PCM.HP.ID ---
Problem List (1) COVID-19 Status: Acute Reason for Consult: covedwina Consulted by: Dr. Almaraz History of Present Illness: The patient is a 79 year old F with COPD, on 3L home O2, follows with Dr. Joy, got covid shot 09/26, afterwards with fever, chills, headache, cough, aches. Came to ED, covid Ag and pcr (+), admitted on remdesivir and dex. Vanc/zosyn started. Feeling better, no sputum, on 80% bipap. Full ROS performed and neg except as noted above. - Medical History Past Medical History (Chronic Problems): Chronic Problems (Last Reviewed 09/27/20 @ 13:[address] Ean Chirinos, DO) Closed right hip fracture (Chronic) Former tobacco use (Chronic) She quit in 1994 COPD (chronic obstructive pulmonary disease) (Chronic) Anxiety and depression (Chronic) CKD (chronic kidney disease) (Chronic) ? unclear. The GFR came up to 86 with hydration. 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 mitral valve regurgitation (Chronic) trivial on ECHO done 03/17/2018 Allergies/Adverse Reactions: Allergies cefaclor [From Ceclor] Allergy (Verified 09/27/20 09:09) Hives Home Medications: Ambulatory Orders Medication Instructions Recorded Atorvastatin Calcium 40 mg PO DAILY 12/28/17 Isosorbide Mononitrate [Imdur] 30 mg PO DAILY 12/28/17 Multivitamin [Daily Multiple 1 tab PO DAILY 12/28/17 Vitamin] Paroxetine HCl [Paxil Cr] 37.5 mg PO DAILY 12/28/17 Ramipril [Altace] 10 mg PO DAILY 12/28/17 calcium carbonate 600 mg calcium 600 mg PO BID tab 12/30/17 (1,500 mg) tablet cholecalciferol (vitamin D3) 10 400 unit PO QDAY 12/30/17 mcg (400 unit) capsule lactobacillus combination no.8 3 3,000 mmu cells PO QDAY 12/30/17 billion cell capsule omega-3 fatty acids 1,000 mg 1,000 mg PO QDAY 12/30/17 capsule buspirone 15 mg tablet 15 mg PO DAILY 30 Days #60 tab 09/22/18 Fluticasone/Umeclidin/Vilanter 1 puff INHALATION DAILY 09/07/20 [Trelegy Ellipta 100-62.5-25] Famotidine [Pepcid] 20 mg PO BID 09/09/20 Fluticasone/Umeclidin/Vilanter 1 ea IH DAILY 09/09/20 [Trelegy Ellipta 100-62.5-25] Acetaminophen [Tylenol] 1,000 mg PO Q8 PRN #1 tab 09/21/20 Arthritis Pain Compound 0 click TOPICAL TID gm 09/21/20 Aspirin [Aspirin, Baby] 81 mg PO BIDCM #1 09/21/20 Magnesium Chloride [Slow-Mag] 71.5 mg PO BID #60 tablet. 09/21/20 - Social History SMOKING STATUS:: Former smoker Vital Signs Temp Pulse Resp BP Pulse Ox 98 F 81 22 H 138/89 H 97 09/29/20 22:15 09/30/20 13:40 09/30/20 13:40 09/29/20 22:15 09/30/20 13:40 Oxygen Flow Rate (L/min) 15 Oxygen Delivery Method Nasal Cannula Weight: 50.5 kg Body Mass Index (BMI) 19.7 Microbiology Past 72 Hours 09/27/20 12:30 Urine Culture - Preliminary Urine, Clean Catch Culture exhibits no growth. 09/27/20 09:40 Blood Culture - Preliminary Blood Culture (Wb) - Right Forearm No growth in 48 hours. 09/27/20 09:40 Blood Culture - Preliminary Blood Culture (Wb) - Anticubital Left No growth in 48 hours. 09/28/20 12:30 Legionella Antigen - Final Urine Catheter - Cardona Streptococcus pneumoniae Antigen (M - Final 09/27/20 09:50 SARS-CoV-2 Antigen (Rapid) - Final Mucosa - Nose SARS-CoV-2 (COVID 19) Influenza Types A,B Direct FA (CAIT) - Final Laboratory Tests Past 24 Hrs 09/29/20 09/30/20 09/30/20 19:09 05:20 05:20 WBC 12.8 H RBC 3.03 L Hgb 9.9 L Hct 31.3 L MCV 103.3 H MCH 32.7 H MCHC 31.6 L RDW Std Deviation 55.2 H RDW Coeff of Linette 14.5 Plt Count 299 MPV 11.4 Immature Gran % (Auto) 0.600 Neut % (Auto) 84.5 H Lymph % (Auto) 7.5 L [place] % (Auto) 7.3 Eos % (Auto) 0.0 Baso % (Auto) 0.1 Absolute Neuts (auto) 10.8 H Absolute Lymphs (auto) 0.96 Nucleated RBC % 0 Specimen Type ART Sample Site L Radial pH 7.44 Bicarbonate Actual 25.3 Total CO2 26 Base Excess 1 O2 Saturation 89 L ABG pCO2 37.4 ABG pO2 54 L O2 Delivery Device HFNC Liter Flow 15.0 Sodium 140 Potassium 4.1 Chloride 108 H Carbon Dioxide 28.0 Anion Gap 4 L BUN 25 H Creatinine 0.80 Estim Creat Clear Calc 43.97 Est GFR (MDRD) Af Amer 88 Est GFR (MDRD) Non-Af 73 BUN/Creatinine Ratio 31.2 H Glucose 101 Calcium 8.0 L Total Bilirubin 0.40 AST 37 ALT 23 Alkaline Phosphatase 62 Total Protein 5.8 L Albumin 2.3 L Globulin 3.5 Albumin/Globulin Ratio 0.7 L - Other Studies Radiology: [] reviewed Other Studies: [] Route of nutrition/ use of supplements: [] Nutritional Intake: [] IV Site: [] Cardona Catheter: [] - Physical Exam General: Alert, Cooperative, No apparent distress HEENT: Atraumatic, PERRLA, EOMI Neck: Supple, No Nodes Lungs: Diminished Cardiovascular: Regular rate, Regular Rhythm Abdomen: Soft, Non Tender, Non-Distended Extremities: No edema Skin: No rashes IV Site: Peripheral, without redness Musculoskeletal: No Tenderness to Palpation of Joints or Extremities Neurological: Cranial nerves II-XII grossly intact - Assessment/Plan Antibiotics: [] Assessment/Plan: [] Active and Suspected Problems (Last Reviewed 09/27/20 @ 13:[address] Ean Chirions, DO) COVID-19 (Acute) Pneumonia (Acute) covid with hypoxia, underlying copd on 3L home o2 - sx started around 09/26. on 80% O2, will consult pulm. No clear evidence of bacterial infection. D/w Dr. Chirinos, and she was started on remdesivir on 09/27. Will stop vanc. Cont zosyn for now, will check BNP, PCT, and sputum cx. Will follow, thank you
--- NOTE | 2020-09-30 15:21 | CASEMGMT ---
Power of Packing Shed Supervisor for Health Care and Business in [facility] printed and placed on paper chart to be scanned into summary tab at time of discharge. TIMMY Hood
[2020-09-30 16:33] LABS: Vancomycin, Trough Level 8.1 ug/mL (5.0-15.0)
[2020-09-30] MEDS: Atorvastatin Calcium 40 MG Tablet PO (22:38)
[2020-09-30] MEDS: LORazepam 0.5 MG Tablet PO (23:05)
--- NOTE | 2020-09-30 23:40 | NURSING ---
PT WOKE, PANICKED AND STARTED DESATTING, TO THE XU 70s, PLACED ON BIPAP, TOOK HER A LONG TIME TO RECOVER, 93% ON THE BIPAP, PRN ATIVAN GIVEN. RESP IN AND SET HER UP FOR AIRVO ONCE THE BIPAP IS OFF.
[2020-10-01] VITALS (21 sets, daily range): BP systolic 119–150; BP diastolic 77–94; PULSE 79–96; RESP 12–27; TEMP 36.5–37; O2SAT 90–350
[2020-10-01 05:25] LABS: Absolute Neutrophil Count 10.1 X10^3/uL (2.0-7.7); Basophil# 0.02 X10^3/uL; Basophil% 0.2 % (0-1); Eosinophil# 0.01 X10^3/uL; Eosinophils% 0.1 % (0-5); Hematocrit 30.9 % (37-47); Lymphocyte % 10.3 % (19-41); Mean Corp Hgb Conc 32.4 g/dL (32-36); Mean Corpuscular Hgb 32.7 pg (27.0-32.0); Monocyte# 1.11 X10^3/uL; Monocyte% 8.8 % (0-10); NRBC Flagged by Analyzer 0 % (0-5); Neutrophil # 10.14 X10^3/uL (2.7-7.7); Neutrophil % 79.9 % (47-70); Platelet Count 311 K/mm3 (150-450); RBC Distribution Width CV 14.3 % (11.6-14.6); RBC Distribution Width SD 52.1 fl (35.1-43.9); Red Blood Count 3.06 M/mm3 (4.2-5.4); White Blood Count 12.7 K/mm3 (4.4-11.0)
[2020-10-01 05:49] LABS: BNP,B-Type NATRIURETIC PEPTIDE 297.2 pg/mL (0-100)
[2020-10-01 05:53] LABS: ALB/GLOB Ratio 0.7 RATIO (0.9-2.4); AST(SGOT) 33 U/L (15-37); Alanine Aminotransfer ALT/SGPT 26 U/L (13-56); Albumin, Serum 2.4 g/dL (3.2-5.0); Alkaline Phosphatase 61 U/L (45-117); Anion Gap 4 (5-15); BUN 24 mg/dL (7-18); BUN/Creat Ratio 30.6 RATIO (10-20); Chloride 108 mmol/L (98-107); Creatinine, Serum 0.78 mg/dL (0.55-1.02); EST Glomerular Filtration Rate 75 mL/min (>60); Est Glom Filt Rate - Afr Amer 90 mL/min (>60); Estimated Creatinine Clearance 35.17 ml/min; Globulin 3.6 g/dL (2.2-4.2); Glucose 86 mg/dL (74-106); Potassium 3.9 mmol/L (3.5-5.1); Sodium Level 141 mmol/L (136-145)
[2020-10-01] MEDS: Budesonide Respules 0.5 MG/2 ML AMPUL.NEB. INHALATION ×2 (07:14→19:14)
--- NOTE | 2020-10-01 09:10 | CON.PCM_ITS ---
Reason for Consult Date of Consultation: 10/01/20 Reason for Consultation: Acute hypoxemic respiratory failure secondary to COVID- 19 pneumonia History of Present Illness: The patient is an 79-year-old female, with a history as outlined below, who initially presented to the emergency department on September 27 with complaints of fever, shortness of breath and nonproductive cough. The patient is currently followed by Dr. Rey of pulmonary medicine due to a history of COPD with PFTs last completed in March 2020 revealing a severe obstructive ventilatory impairment and severe reduction in diffusing capacity. The patient is apparently supposed to be utilizing 2 L/min of supplemental oxygen at her baseline. On presentation to the emergency department, the patient was noted to be afebrile and hemodynamically stable. She was, nevertheless, saturating 84% on room air. Laboratory evaluation revealed a elevated white blood cell count to 13,000. Coagulation profile revealed an elevated D-dimer to 3.03. Chemistry profile was largely unrevealing. Liver function was within normal limits. Troponin was negative. Lactic acid was within normal limits. Coronavirus PCR was positive on September 27. CTA chest showed no evidence for pulmonary embolism. Hyperinflated lung payne were noted along with bilateral emphysematous changes. An infiltrate was noted in the left lower lobe along with bibasilar bronchiectasis. The patient was started on antimicrobials, remdesivir and Decadron. She was subsequently admitted to the coronavirus cohort unit for further management. To date, the patient has had increasing oxygen requirements. She is currently being maintained on BiPAP with an FiO2 of 50%. She remains on remdesivir and Decadron. Past Medical History Past Medical History (Chronic Problems): Chronic Problems (Last Reviewed 09/27/20 @ 13:[address] Ean Chirinos, DO) Closed right hip fracture (Chronic) Former tobacco use (Chronic) She quit in 1994 COPD (chronic obstructive pulmonary disease) (Chronic) Anxiety and depression (Chronic) CKD (chronic kidney disease) (Chronic) ? unclear. The GFR came up to 86 with hydration. 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 Nonrheumatic mitral valve regurgitation (Chronic) I34.0 trivial on ECHO done 03/17/2018 Depression F32.9 COPD (chronic obstructive pulmonary disease) J44.9 Allergies cefaclor [From Ceclor] Allergy (Verified 09/27/20 09:09) Hives Home Medications: Ambulatory Orders Medication Instructions Recorded Atorvastatin Calcium 40 mg PO DAILY 12/28/17 Isosorbide Mononitrate [Imdur] 30 mg PO DAILY 12/28/17 Multivitamin [Daily Multiple 1 tab PO DAILY 12/28/17 Vitamin] Paroxetine HCl [Paxil Cr] 37.5 mg PO DAILY 12/28/17 Ramipril [Altace] 10 mg PO DAILY 12/28/17 calcium carbonate 600 mg calcium 600 mg PO BID tab 12/30/17 (1,500 mg) tablet cholecalciferol (vitamin D3) 10 400 unit PO QDAY 12/30/17 mcg (400 unit) capsule lactobacillus combination no.8 3 3,000 mmu cells PO QDAY 12/30/17 billion cell capsule omega-3 fatty acids 1,000 mg 1,000 mg PO QDAY 12/30/17 capsule buspirone 15 mg tablet 15 mg PO DAILY 30 Days #60 tab 09/22/18 Fluticasone/Umeclidin/Vilanter 1 puff INHALATION DAILY 09/07/20 [Trelegy Ellipta 100-62.5-25] Famotidine [Pepcid] 20 mg PO BID 09/09/20 Fluticasone/Umeclidin/Vilanter 1 ea IH DAILY 09/09/20 [Trelegy Ellipta 100-62.5-25] Acetaminophen [Tylenol] 1,000 mg PO Q8 PRN #1 tab 09/21/20 Arthritis Pain Compound 0 click TOPICAL TID gm 09/21/20 Aspirin [Aspirin, Baby] 81 mg PO BIDCM #1 09/21/20 Magnesium Chloride [Slow-Mag] 71.5 mg PO BID #60 tablet. 09/21/20 Surgical History: Surgical History (Last Reviewed 09/27/20 @ 13:[address] Ean Chirinos DO) History of cholecystectomy Z90.49 Surgical History: - - Cholecystectomy, tonsillectomy. Right total hip replacement on 09/08/[address] Arreaga. 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 Ean Chirinos DO) Father Myocardial infarction, Onset Age: 43 Brother Myocardial infarction, Onset Age: 52 Brother CAD (coronary artery disease) History Items: Cancer - Mother with history of pancreatic cancer. Paternal Family History: Family History (Last Reviewed 09/27/20 @ 13:[address] Ean Chirinos DO) Father Myocardial infarction, Onset Age: 43 Brother Myocardial infarction, Onset Age: 52 Brother CAD (coronary artery disease) History Items: High Cholesterol, Heart Disease, Hypertension Review of Systems Constitutional: Reports: Chills, Fever Eyes: Denies: Blurred vision, Double vision HEENT: Denies: Head Aches, Sinus Congestion, Sinus Drainage Cardiovascular: Denies: Chest Pain, Palpitations Respiratory: Reports: Cough, Shortness of Breath Gastrointestinal: Denies: Abdominal Pain, Nausea, Vomiting Genitourinary: Denies: Dysuria Musculoskeletal: Denies: Joint Pain, Joint Tenderness Skin: Denies: Rash, Wounds Neurological: Denies: Numbness, Tingling, Focal weakness Psychiatric: Reports: Anxiety Hematologic/ Lymphatic: Denies: Easy Bruising, Easy Bleeding Patient Problems: Active and Suspected Problems (Last Reviewed 09/27/20 @ 13:[address] Ean Chirinos DO) COVID-19 (Acute) Pneumonia (Acute) Objective: The patient's most recent lab work, culture data and imaging studies have all been personally reviewed. Coronavirus PCR was positive on September 27. - Physical Exam Vitals/I&O's: Vital Signs Temp Pulse Resp BP Pulse Ox 97.8 F 79 22 H 134/93 H 99 10/01/20 04:00 10/01/20 08:00 10/01/20 07:15 10/01/20 04:00 10/01/20 07:15 Oxygen Flow Rate (L/min) 70 Oxygen Delivery Method Bi-pap Weight: 111 lb 5.335 oz Body Mass Index (BMI) 19.7 Intake and Output for Last 24 Hours 09/29/20 09/30/20 10/01/20 23:59 23:59 23:59 Intake Total 1893.25 / 1893.25 970 / 970 50 / 50 Output Total 1300 / 1300 1300 / 1300 100 / 100 Balance 593.25 / 593.25 -330 / -330 -50 / -50 General: Alert, Cooperative, No apparent distress HEENT: Atraumatic, Normocephalic Oral: Dry Mucosa Neck: Supple, No Nodes, Trachea Midline Lungs: No rhonchi, No wheeze, No rales, Diminished Cardiovascular: Regular rate, Regular Rhythm Abdomen: Bowel Sounds Present, Soft, Non Tender Extremities: No clubbing, No cyanosis, No edema Skin: No breakdown Musculoskeletal: No Tenderness to Palpation of Joints or Extremities Lymphatic: No Cervical, Supraclavicular, or Inguinal Adenopathy Neurological: Cranial nerves II-XII grossly intact, Neuro grossly intact Psych/Mental Status: Normal Affect Labs (Last 48 Hours) 09/29/20 09/30/20 09/30/20 19:09 05:20 05:20 WBC 12.8 H RBC 3.03 L Hgb 9.9 L Hct 31.3 L MCV 103.3 H MCH 32.7 H MCHC 31.6 L RDW Std Deviation 55.2 H RDW Coeff of Linette 14.5 Plt Count 299 MPV 11.4 Immature Gran % (Auto) 0.600 Neut % (Auto) 84.5 H Lymph % (Auto) 7.5 L Wise % (Auto) 7.3 Eos % (Auto) 0.0 Baso % (Auto) 0.1 Absolute Neuts (auto) 10.8 H Absolute Lymphs (auto) 0.96 Nucleated RBC % 0 Specimen Type ART Sample Site L Radial pH 7.44 Bicarbonate Actual 25.3 Total CO2 26 Base Excess 1 O2 Saturation 89 L ABG pCO2 37.4 ABG pO2 54 L O2 Delivery Device HFNC Liter Flow 15.0 Sodium 140 Potassium 4.1 Chloride 108 H Carbon Dioxide 28.0 Anion Gap 4 L BUN 25 H Creatinine 0.80 Estim Creat Clear Calc 43.97 Est GFR (MDRD) Af Amer 88 Est GFR (MDRD) Non-Af 73 BUN/Creatinine Ratio 31.2 H Glucose 101 Calcium 8.0 L Total Bilirubin 0.40 AST 37 ALT 23 Alkaline Phosphatase 62 B-Natriuretic Peptide Total Protein 5.8 L Albumin 2.3 L Globulin 3.5 Albumin/Globulin Ratio 0.7 L Procalcitonin Vancomycin Trough 09/30/20 10/01/20 10/01/20 15:31 05:12 05:12 WBC 12.7 H RBC 3.06 L Hgb 10.0 L Hct 30.9 L MCV 101.0 H MCH 32.7 H MCHC 32.4 RDW Std Deviation 52.1 H RDW Coeff of Linette 14.3 Plt Count 311 MPV 11.0 Immature Gran % (Auto) 0.700 Neut % (Auto) 79.9 H Lymph % (Auto) 10.3 L Wise % (Auto) 8.8 Eos % (Auto) 0.1 Baso % (Auto) 0.2 Absolute Neuts (auto) 10.1 H Absolute Lymphs (auto) 1.30 Nucleated RBC % 0 Specimen Type Sample Site pH Bicarbonate Actual Total CO2 Base Excess O2 Saturation ABG pCO2 ABG pO2 O2 Delivery Device Liter Flow Sodium 141 Potassium 3.9 Chloride 108 H Carbon Dioxide 29.0 Anion Gap 4 L BUN 24 H Creatinine 0.78 Estim Creat Clear Calc 35.17 Est GFR (MDRD) Af Amer 90 Est GFR (MDRD) Non-Af 75 BUN/Creatinine Ratio 30.6 H Glucose 86 Calcium 8.0 L Total Bilirubin 0.50 AST 33 ALT 26 Alkaline Phosphatase 61 B-Natriuretic Peptide Total Protein 6.0 L Albumin 2.4 L Globulin 3.6 Albumin/Globulin Ratio 0.7 L Procalcitonin Vancomycin Trough 8.1 10/01/20 10/01/20 05:12 05:12 WBC RBC Hgb Hct MCV MCH MCHC RDW Std Deviation RDW Coeff of Linette Plt Count MPV Immature Gran % (Auto) Neut % (Auto) Lymph % (Auto) Wise % (Auto) Eos % (Auto) Baso % (Auto) Absolute Neuts (auto) Absolute Lymphs (auto) Nucleated RBC % Specimen Type Sample Site pH Bicarbonate Actual Total CO2 Base Excess O2 Saturation ABG pCO2 ABG pO2 O2 Delivery Device Liter Flow Sodium Potassium Chloride Carbon Dioxide Anion Gap BUN Creatinine Estim Creat Clear Calc Est GFR (MDRD) Af Amer Est GFR (MDRD) Non-Af BUN/Creatinine Ratio Glucose Calcium Total Bilirubin AST ALT Alkaline Phosphatase B-Natriuretic Peptide 297.2 H Total Protein Albumin Globulin Albumin/Globulin Ratio Procalcitonin 0.10 H Vancomycin Trough Microbiology 09/27/20 12:30 Urine, Clean Catch Urine Culture - Final Culture exhibits no growth. 09/27/20 09:40 Blood Culture (Wb) - Right Forearm Blood Culture - Preliminary No growth in 48 hours. 09/27/20 09:40 Blood Culture (Wb) - Anticubital Left Blood Culture - Preliminary No growth in 48 hours. Clinical Impression(s) from Imaging Studies Chest X-Ray 09/27/20 10:30 IMPRESSION: Persistent bibasilar infiltrates worse on the left side although there has been moderate clearing as compared to prior study. This is superimposed on emphysematous changes and pulmonary scarring. Electronically Signed: Shreyas Westbrook MD at 10:52 EST , Service support , Chest CTA 09/27/20 10:36 IMPRESSION: No evidence of pulmonary embolism. Improved aeration of both lungs as compared to prior study with residual changes present superimposed on emphysematous changes and bronchiectasis. Electronically Signed: Shreyas Westbrook MD at 11:13 EST , Service support , Current Medications Acetaminophen (Acetaminophen 500 Mg Tablet) 1,000 mg PO Q8H PRN PRN Reason: Pain 1-10 or Fever Last Admin: 09/28/20 12:01 Dose: 1,000 mg Documented by: Albuterol Sulfate (Albuterol Sulfate 18 Gm Inhaler (200 Puffs)) 2 puff IH Q4H PRN PRN PRN Reason: SHORTNESS OF BREATH Aspirin (Aspirin 81 Mg Tab.Chew) 81 mg PO DAILY [facility] Last Admin: 09/30/20 09:08 Dose: 81 mg Documented by: Atorvastatin Calcium (Atorvastatin Calcium 40 Mg Tablet) 40 mg PO DAILY@2200 [facility] Last Admin: 09/30/20 22:38 Dose: 40 mg Documented by: Budesonide (Budesonide Respules 0.5 Mg/2 Ml Ampul.Neb.) 0.5 mg INHALATION Q12H.RT [facility] Last Admin: 10/01/20 07:14 Dose: 0.5 mg Documented by: Buspirone HCl (Buspirone 15 Mg Tablet) 15 mg PO DAILY [facility] Last Admin: 09/30/20 09:08 Dose: 15 mg Documented by: Calcium Carbonate (Calcium (Elemental) 500 Mg Tablet) 500 mg PO BID [facility] Last Admin: 09/30/20 22:37 Dose: 500 mg Documented by: Dexamethasone (Dexamethasone 4 Mg Tablet) 6 mg PO DAILY [facility] Stop: 10/05/20 23:59 Last Admin: 09/30/20 09:08 Dose: 6 mg Documented by: Enoxaparin Sodium (Enoxaparin 40 Mg/0.4 Ml Syringe) 40 mg SC DAILY [facility] Last Admin: 09/30/20 09:08 Dose: 40 mg Documented by: Famotidine (Famotidine 20 Mg Tablet) 20 mg PO DAILY [facility] Sodium Chloride () 250 mls @ 15 mls/hr IV .[id number] PRN PRN Reason: Saline Flush Last Infusion: 09/29/20 04:54 Dose: 0 mls/hr Documented by: Sodium Chloride () 250 mls @ 15 mls/hr IV .[id number] PRN PRN Reason: Additional IVPB Infusion Remdesivir 100 mg/ Sodium (Chloride) 250 mls @ 125 mls/hr IV DAILY [facility] Stop: 10/01/20 11:59 Last Infusion: 09/30/20 12:56 Dose: Infused Documented by: Piperacillin Sod/Tazobactam (Sod 3.375 gm/ Sodium Chloride) 50 mls @ 12.5 mls/hr IV Q8 [facility] Last Admin: 10/01/20 05:44 Dose: 12.5 mls/hr Documented by: Isosorbide Mononitrate (Isosorbide Mononitrate 30 Mg Tablet) 30 mg PO DAILY [facility] Last Admin: 09/30/20 09:08 Dose: 30 mg Documented by: Lactobacillus Acidophilus (Lactobacillus Acidophilus) 1 tablet PO DAILY [facility] Last Admin: 09/30/20 09:07 Dose: 1 tablet Documented by: Lorazepam (Lorazepam 0.5 Mg Tablet) 0.5 mg PO Q6H PRN PRN PRN Reason: ANXIETY Last Admin: 09/30/20 23:05 Dose: 0.5 mg Documented by: Magnesium Chloride (Magnesium Chloride 64 Mg Delay Rel.Tablet) 64 mg PO BID [facility] Last Admin: 09/30/20 22:38 Dose: 64 mg Documented by: Miscellaneous Information (Inhaler, Assist Devices 1 Each Spacer) 0 each INHALATION PRN PRN PRN Reason: WITH INHALER Multivitamins (Multivitamins,Therapeutic Tablet) 1 tablet PO DAILY [facility] Last Admin: 09/30/20 09:08 Dose: 1 tablet Documented by: Paroxetine HCl (Paroxetine Cr 12.5 Mg Tablet) 37.5 mg PO DAILY [facility] Last Admin: 09/30/20 09:08 Dose: 37.5 mg Documented by: Ramipril (Ramipril 10 Mg Capsule) 10 mg PO DAILY [facility] Last Admin: 09/30/20 09:08 Dose: 10 mg Documented by: Sodium Chloride (0.9% Saline Lock 10 Ml Syringe) 10 - 40 ml IV UD PRN PRN Reason: SALINE FLUSH Last Admin: 09/28/20 10:03 Dose: 10 ml Documented by: Assessment/Plan All Active Problems (Last Reviewed 09/27/20 @ 13:[address] Ean Chirinos, DO) COVID-19 (Acute) Pneumonia (Acute) Pulmonary edema (Resolved) Pneumonia (Resolved) Physical debility (Acute) Dehydration (Acute) Tachycardia (Acute) RECOMMENDATIONS: 1. Transition from BiPAP to either heated high flow or nasal cannula supplemental O2. Goal to maintain oxygen saturations at or above 90%. 2. Complete course of remdesivir. 3. Continue Decadron to complete 10-day treatment course. 4. Continue scheduled bronchodilator therapy. Resume triple therapy inhaler regimen at discharge. 5. Encourage incentive spirometer use and mobilize patient as tolerated. 6. Follow-up with primary diesel engine erector after discharge from hospital. IMPRESSIONS: 1. Acute on chronic hypoxemic respiratory failure secondary to COVID-19 pneumonia The patient does have baseline severe COPD based upon pulmonary function studies from March 2020. She has nearly completed her treatment course of remdesivir and remains on Decadron. I would also advise continuing scheduled bronchodilator therapy as ordered. The patient can likely be transition from BiPAP to either heated high flow or nasal cannula supplemental oxygen this morning. Goal to maintain oxygen saturations at or above 90%. Encourage incentive spirometer use and mobilize patient as tolerated. There is no evidence of pulmonary embolism identified on CTA chest. Recommend close outpatient follow-up with the patient's primary diesel engine erector. 2. Recent hip surgery/advanced age/hypertension/hyperlipidemia/anxiety Complicates care, management, recovery and prognosis. Continue home medications as indicated. This note was generated with [employer] dictation software. It may contain incorrect words, spelling, and punctuation that were not noted in checking the note before signing. Inpatient E&M: 91605 Init Hosp L3
[2020-10-01] MEDS: busPIRone 15 MG TABLET PO (09:38)
[2020-10-01] MEDS: Famotidine 20 MG Tablet PO (09:38)
[2020-10-01] MEDS: Multivitamins,Therapeutic Tablet 1 TABLET PO (09:38)
[2020-10-01] MEDS: Isosorbide Mononitrate 30 MG Tablet PO (09:38)
[2020-10-01] MEDS: PARoxetine CR 12.5 MG Tablet 37.5 MG PO (09:38)
[2020-10-01] MEDS: dexAMETHasone 4 MG Tablet 6 MG PO (09:39)
[2020-10-01] MEDS: Ramipril 10 MG Capsule PO (09:39)
[2020-10-01] MEDS: Magnesium Chloride 64 MG Delay Rel.Tablet PO ×2 (09:39→20:44)
[2020-10-01] MEDS: Calcium (Elemental) 500 MG Tablet PO ×2 (09:39→20:44)
[2020-10-01] MEDS: Aspirin 81 MG TAB.CHEW PO (09:39)
[2020-10-01] MEDS: Enoxaparin 40 MG/0.4 ML Syringe SC (09:39)
[2020-10-01] MEDS: LORazepam 0.5 MG Tablet PO ×2 (10:02→20:47)
--- NOTE | 2020-10-01 11:51 | PN_ITS ---
Patient Problems: Active and Suspected Problems (Last Reviewed 09/27/20 @ 13:[address] Ean Chirinos, DO) COVID-19 (Acute) Pneumonia (Acute) Objective: Patient on BiPAP 60% FiO2 pulse ox 93 to 94%. Afebrile. Patient short of breath on BiPAP. Mild cough mainly dry. Physical exam General: Alert, Oriented x3, Cooperative, BMI 19.7 kg/m? HEENT: Atraumatic, PERRLA, EOMI, Normocephalic Oral: No Gingival or Mucosal Lesions/ Ulcerations Neck: Supple, No JVD, Negative Carotid Bruits Lungs: Air entry severely diminished in both lungs. On BiPAP. No crepitation/rhonchi Cardiovascular: Regular rate, Regular Rhythm, Normal S1, Normal S2, No murmurs Abdomen: Bowel Sounds Present, Soft, Non Tender, Non-Distended : No renal angle tenderness. No suprapubic tenderness. Extremities: No edema, Capillary Refill Less than 3 Seconds Skin: No rashes, No breakdown Musculoskeletal: No Tenderness to Palpation of Joints or Extremities. Mild to moderate loss of muscle mass and subcutaneous loss of fat. Neurological: Cranial nerves II-XII grossly intact, Deep Tendon Reflexes 2+/4 and Symmetrical, Neuro grossly intact Psych/Mental Status: Normal Affect, Appropriate. Vitals/I&O's: Vital Signs Temp Pulse Resp BP Pulse Ox 98.4 F 89 19 H 134/88 H 94 10/01/20 09:48 10/01/20 11:11 10/01/20 11:11 10/01/20 09:48 10/01/20 11:11 Oxygen Flow Rate (L/min) 70 Oxygen Delivery Method Bi-pap Weight: 111 lb 5.335 oz Body Mass Index (BMI) 19.7 Intake and Output for Last 24 Hours 09/29/20 09/30/20 10/01/20 23:59 23:59 23:59 Intake Total 1893.25 / 1893.25 970 / 970 100 / 100 Output Total 1300 / 1300 1300 / 1300 100 / 100 Balance 593.25 / 593.25 -330 / -330 0 / 0 Microbiology Past 72 Hours 09/27/20 12:30 Urine, Clean Catch Urine Culture - Final Culture exhibits no growth. 09/27/20 09:40 Blood Culture (Wb) - Right Forearm Blood Culture - Preliminary No growth in 48 hours. 09/27/20 09:40 Blood Culture (Wb) - Anticubital Left Blood Culture - Preliminary No growth in 48 hours. 09/28/20 12:30 Urine Catheter - Cardona Legionella Antigen - Final 09/28/20 12:30 Urine Catheter - Cardona Streptococcus pneumoniae Antigen (M - Final Laboratory Results 09/30/20 15:31: Vancomycin Trough 8.1 10/01/20 05:12: WBC 12.7 H, RBC 3.06 L, Hgb 10.0 L, Hct 30.9 L, MCV 101.0 H, MCH 32.7 H, MCHC 32.4, RDW Std Deviation 52.1 H, RDW Coeff of Linette 14.3, Plt Count 311, MPV 11.0, Immature Gran % (Auto) 0.700, Neut % (Auto) 79.9 H, Lymph % (Auto) 10.3 L, Curry % (Auto) 8.8, Eos % (Auto) 0.1, Baso % (Auto) 0.2, Absolute Neuts (auto) 10.1 H, Absolute Lymphs (auto) 1.30, Nucleated RBC % 0 10/01/20 05:12: Sodium 141, Potassium 3.9, Chloride 108 H, Carbon Dioxide 29.0, Anion Gap 4 L, BUN 24 H, Creatinine 0.78, Estim Creat Clear Calc 35.17, Est GFR (MDRD) Af Amer 90, Est GFR (MDRD) Non-Af 75, BUN/Creatinine Ratio 30.6 H, Glucose 86, Calcium 8.0 L, Total Bilirubin 0.50, AST 33, ALT 26, Alkaline Phosphatase 61, Total Protein 6.0 L, Albumin 2.4 L, Globulin 3.6, Albumin/Globulin Ratio 0.7 L 10/01/20 05:12: B-Natriuretic Peptide 297.2 H 10/01/20 05:12: Procalcitonin 0.10 H Current Medications Acetaminophen (Acetaminophen 500 Mg Tablet) 1,000 mg PO Q8H PRN PRN Reason: Pain 1-10 or Fever Last Admin: 09/28/20 12:01 Dose: 1,000 mg Documented by: Albuterol Sulfate (Albuterol Sulfate 18 Gm Inhaler (200 Puffs)) 2 puff IH Q4H PRN PRN PRN Reason: SHORTNESS OF BREATH Aspirin (Aspirin 81 Mg Tab.Chew) 81 mg PO DAILY [facility] Last Admin: 10/01/20 09:39 Dose: 81 mg Documented by: Atorvastatin Calcium (Atorvastatin Calcium 40 Mg Tablet) 40 mg PO DAILY@2200 [facility] Last Admin: 09/30/20 22:38 Dose: 40 mg Documented by: Budesonide (Budesonide Respules 0.5 Mg/2 Ml Ampul.Neb.) 0.5 mg INHALATION Q12H.RT [facility] Last Admin: 10/01/20 07:14 Dose: 0.5 mg Documented by: Buspirone HCl (Buspirone 15 Mg Tablet) 15 mg PO DAILY [facility] Last Admin: 10/01/20 09:38 Dose: 15 mg Documented by: Calcium Carbonate (Calcium (Elemental) 500 Mg Tablet) 500 mg PO BID [facility] Last Admin: 10/01/20 09:39 Dose: 500 mg Documented by: Dexamethasone (Dexamethasone 4 Mg Tablet) 6 mg PO DAILY [facility] Stop: 10/05/20 23:59 Last Admin: 10/01/20 09:39 Dose: 6 mg Documented by: Enoxaparin Sodium (Enoxaparin 40 Mg/0.4 Ml Syringe) 40 mg SC DAILY [facility] Last Admin: 10/01/20 09:39 Dose: 40 mg Documented by: Famotidine (Famotidine 20 Mg Tablet) 20 mg PO DAILY [facility] Last Admin: 10/01/20 09:38 Dose: 20 mg Documented by: Sodium Chloride () 250 mls @ 15 mls/hr IV .[id number] PRN PRN Reason: Saline Flush Last Infusion: 09/29/20 04:54 Dose: 0 mls/hr Documented by: Sodium Chloride () 250 mls @ 15 mls/hr IV .[id number] PRN PRN Reason: Additional IVPB Infusion Remdesivir 100 mg/ Sodium (Chloride) 250 mls @ 125 mls/hr IV DAILY [facility] Stop: 10/01/20 11:59 Last Admin: 10/01/20 10:04 Dose: 125 mls/hr Documented by: Isosorbide Mononitrate (Isosorbide Mononitrate 30 Mg Tablet) 30 mg PO DAILY [facility] Last Admin: 10/01/20 09:38 Dose: 30 mg Documented by: Lactobacillus Acidophilus (Lactobacillus Acidophilus) 1 tablet PO DAILY [facility] Last Admin: 10/01/20 09:38 Dose: 1 tablet Documented by: Lorazepam (Lorazepam 0.5 Mg Tablet) 0.5 mg PO Q6H PRN PRN PRN Reason: ANXIETY Last Admin: 10/01/20 10:02 Dose: 0.5 mg Documented by: Magnesium Chloride (Magnesium Chloride 64 Mg Delay Rel.Tablet) 64 mg PO BID [facility] Last Admin: 10/01/20 09:39 Dose: 64 mg Documented by: Miscellaneous Information (Inhaler, Assist Devices 1 Each Spacer) 0 each INHALATION PRN PRN PRN Reason: WITH INHALER Multivitamins (Multivitamins,Therapeutic Tablet) 1 tablet PO DAILY [facility] Last Admin: 10/01/20 09:38 Dose: 1 tablet Documented by: Paroxetine HCl (Paroxetine Cr 12.5 Mg Tablet) 37.5 mg PO DAILY [facility] Last Admin: 10/01/20 09:38 Dose: 37.5 mg Documented by: Ramipril (Ramipril 10 Mg Capsule) 10 mg PO DAILY [facility] Last Admin: 10/01/20 09:39 Dose: 10 mg Documented by: Sodium Chloride (0.9% Saline Lock 10 Ml Syringe) 10 - 40 ml IV UD PRN PRN Reason: SALINE FLUSH Last Admin: 09/28/20 10:03 Dose: 10 ml Documented by: STROKE Vital Signs/Narrative: Vital Signs Temp Pulse Resp BP Pulse Ox 10/01/20 11:11 89 19 H 94 10/01/20 09:48 98.4 F 89 20 H 134/88 H 93 10/01/20 08:00 79 Medical Necessity - Tobacco Use Smoking Status: Former smoker Assessment/Plan All Active Problems (Last Reviewed 09/27/20 @ 13:[address] Ean Chirinos, DO) COVID-19 (Acute) Pneumonia (Acute) Pulmonary edema (Resolved) Pneumonia (Resolved) Physical debility (Acute) Dehydration (Acute) Tachycardia (Acute) This 79-year-old female with history of COPD on 3 L of home oxygen was admitted with fever 102 Fahrenheit, hypoxia, dizziness on 09/26 after she had COVID-19 vaccination. Patient had Levaquin in ED. 1. Acute COVID 19 pneumonia: Chest CT scan showed no evidence of PE but emphysematous changes the right upper lobe and bronchiectasis in both lower lobes, worse on RLL and new focal infiltrate in RLL. Patient had first COVID-19 vaccination on 09/26 and developed fever. COVID-19 rapid antigen is positive and patient has fever, lymphopenia and elevated D-dimer. On dexamethasone and remdesivir, through 10/01. On broad-spectrum antibiotic with suspicion of HCAP as patient was hospitalized last 3 months. ID has been consulted. On IV Zosyn. Urinary antigens are negative. Blood cultures x2 are negative for more than 48 hours. 10/01: Urine culture shows no growth. Seen by surgical garment fitter. No fever in last 72 hours. Still requires high FiO2. Mild leukocytosis. Inflammatory markers BNP and D-dimer are elevated. Procalcitonin 0.1. 2. Dizziness: Probably due to BPPV, vertigo: Resolved. 3. Acute on chronic hypoxic respiratory failure due to COPD and bronchiectasis as mentioned above. Patient follows Dr. Joy. As mentioned above patient on BiPAP. Cargo Router consulted. 4. Possible Gram negative pneumonia: CT findings as mentioned above. 5. Recent right hip femoral neck fracture: Patient had recent right total hip replacement by Dr. Arreaga on 09/08. PT and OT to continue 6. VTE prophylaxis: On enoxaparin 40 mg subcu daily. 7. Advanced care planning: Patient wishes to be DNR Comfort Care arrest with intubation if necessary. Clinical Impression(s) from Imaging Studies Chest X-Ray 09/27/20 10:30 IMPRESSION: Persistent bibasilar infiltrates worse on the left side although there has been moderate clearing as compared to prior study. This is superimposed on emphysematous changes and pulmonary scarring. Chest CTA 09/27/20 10:36 IMPRESSION: No evidence of pulmonary embolism. Improved aeration of both lungs as compared to prior study with residual changes present superimposed on emphysematous changes and bronchiectasis. Inpatient E&M: 11425 Subs Hosp L2
[2020-10-01] MEDS: Atorvastatin Calcium 40 MG Tablet PO (20:44)
[2020-10-02] VITALS (19 sets, daily range): BP systolic 113–134; BP diastolic 64–83; PULSE 79–95; RESP 12–23; TEMP 36.6–37.1; O2SAT 83–96
[2020-10-02] MEDS: Budesonide Respules 0.5 MG/2 ML AMPUL.NEB. INHALATION ×2 (06:48→19:00)
--- NOTE | 2020-10-02 08:19 | PN_ITS ---
Patient Problems: Active and Suspected Problems (Last Reviewed 09/27/20 @ 13:[address] Ean Chirinos, DO) COVID-19 (Acute) Pneumonia (Acute) Objective: On 45% FiO2. No fever or chills. Hemodynamically blood pressure and heart rate in acceptable limit Vitals/I&O's: Vital Signs Temp Pulse Resp BP Pulse Ox 98.4 F 88 19 H 134/75 H 95 10/02/20 04:00 10/02/20 06:49 10/02/20 06:49 10/02/20 04:00 10/02/20 06:49 Oxygen Flow Rate (L/min) 70 Oxygen Delivery Method Bi-pap Weight: 111 lb 5.335 oz Body Mass Index (BMI) 19.7 Intake and Output for Last 24 Hours 09/30/20 10/01/20 10/02/20 23:59 23:59 23:59 Intake Total 970 / 970 350 / 350 Output Total 1300 / 1300 750 / 750 Balance -330 / -330 -400 / -400 Microbiology Past 72 Hours 09/27/20 09:40 Blood Culture (Wb) - Right Forearm Blood Culture - Final No growth in 5 days. 09/27/20 12:30 Urine, Clean Catch Urine Culture - Final Culture exhibits no growth. 09/27/20 09:40 Blood Culture (Wb) - Anticubital Left Blood Culture - Preliminary No growth in 48 hours. Current Medications Acetaminophen (Acetaminophen 500 Mg Tablet) 1,000 mg PO Q8H PRN PRN Reason: Pain 1-10 or Fever Last Admin: 09/28/20 12:01 Dose: 1,000 mg Documented by: Albuterol Sulfate (Albuterol Sulfate 18 Gm Inhaler (200 Puffs)) 2 puff IH Q4H PRN PRN PRN Reason: SHORTNESS OF BREATH Last Admin: 10/01/20 20:44 Dose: 2 puff Documented by: Aspirin (Aspirin 81 Mg Tab.Chew) 81 mg PO DAILY [facility] Last Admin: 10/01/20 09:39 Dose: 81 mg Documented by: Atorvastatin Calcium (Atorvastatin Calcium 40 Mg Tablet) 40 mg PO DAILY@2200 [facility] Last Admin: 10/01/20 20:44 Dose: 40 mg Documented by: Budesonide (Budesonide Respules 0.5 Mg/2 Ml Ampul.Neb.) 0.5 mg INHALATION Q12H. RT [facility] Last Admin: 10/02/20 06:48 Dose: 0.5 mg Documented by: Buspirone HCl (Buspirone 15 Mg Tablet) 15 mg PO DAILY [facility] Last Admin: 10/01/20 09:38 Dose: 15 mg Documented by: Calcium Carbonate (Calcium (Elemental) 500 Mg Tablet) 500 mg PO BID [facility] Last Admin: 10/01/20 20:44 Dose: 500 mg Documented by: Dexamethasone (Dexamethasone 4 Mg Tablet) 6 mg PO DAILY [facility] Stop: 10/05/20 23:59 Last Admin: 10/01/20 09:39 Dose: 6 mg Documented by: Enoxaparin Sodium (Enoxaparin 40 Mg/0.4 Ml Syringe) 40 mg SC DAILY [facility] Last Admin: 10/01/20 09:39 Dose: 40 mg Documented by: Famotidine (Famotidine 20 Mg Tablet) 20 mg PO DAILY [facility] Last Admin: 10/01/20 09:38 Dose: 20 mg Documented by: Sodium Chloride () 250 mls @ 15 mls/hr IV .[id number] PRN PRN Reason: Saline Flush Last Infusion: 09/29/20 04:54 Dose: 0 mls/hr Documented by: Sodium Chloride () 250 mls @ 15 mls/hr IV .[id number] PRN PRN Reason: Additional IVPB Infusion Isosorbide Mononitrate (Isosorbide Mononitrate 30 Mg Tablet) 30 mg PO DAILY [facility] Last Admin: 10/01/20 09:38 Dose: 30 mg Documented by: Lactobacillus Acidophilus (Lactobacillus Acidophilus) 1 tablet PO DAILY [facility] Last Admin: 10/01/20 09:38 Dose: 1 tablet Documented by: Lorazepam (Lorazepam 0.5 Mg Tablet) 0.5 mg PO Q6H PRN PRN PRN Reason: ANXIETY Last Admin: 10/01/20 20:47 Dose: 0.5 mg Documented by: Magnesium Chloride (Magnesium Chloride 64 Mg Delay Rel.Tablet) 64 mg PO BID [facility] Last Admin: 10/01/20 20:44 Dose: 64 mg Documented by: Miscellaneous Information (Inhaler, Assist Devices 1 Each Spacer) 0 each INHALATION PRN PRN PRN Reason: WITH INHALER Multivitamins (Multivitamins,Therapeutic Tablet) 1 tablet PO DAILY [facility] Last Admin: 10/01/20 09:38 Dose: 1 tablet Documented by: Paroxetine HCl (Paroxetine Cr 12.5 Mg Tablet) 37.5 mg PO DAILY [facility] Last Admin: 10/01/20 09:38 Dose: 37.5 mg Documented by: Ramipril (Ramipril 10 Mg Capsule) 10 mg PO DAILY [facility] Last Admin: 10/01/20 09:39 Dose: 10 mg Documented by: Sodium Chloride (0.9% Saline Lock 10 Ml Syringe) 10 - 40 ml IV UD PRN PRN Reason: SALINE FLUSH Last Admin: 09/28/20 10:03 Dose: 10 ml Documented by: STROKE Vital Signs/Narrative: Vital Signs Pulse Resp Pulse Ox 10/02/20 06:49 88 19 H 95 10/02/20 05:28 84 23 H 95 Medical Necessity - Tobacco Use Smoking Status: Former smoker Assessment/Plan All Active Problems (Last Reviewed 09/27/20 @ 13:[address] Ean Chirinos, DO) COVID-19 (Acute) Pneumonia (Acute) Pulmonary edema (Resolved) Pneumonia (Resolved) Physical debility (Acute) Dehydration (Acute) Tachycardia (Acute)
--- NOTE | 2020-10-02 08:22 | DCINST_ITS ---
- Discharge Diagnoses Current Active Problems: Current Active and Chronic Problems (Last Reviewed 09/27/20 @ 13:[address] Ean Chirinos, DO) COVID-19 (Acute) Pneumonia (Acute) Closed right hip fracture (Chronic) Former tobacco use (Chronic) She quit in 1994 COPD (chronic obstructive pulmonary disease) (Chronic) Anxiety and depression (Chronic) CKD (chronic kidney disease) (Chronic) ? unclear. The GFR came up to 86 with hydration. 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 Nonrheumatic mitral valve regurgitation (Chronic) trivial on ECHO done 03/17/2018 You will use the following diet at home:: Regular Your food should be the consistency of: Regular Discharge Activity: May Not Drive Call your doctor if you observe: Fever of 101 or Higher, Numbness or Tingling, Inability to urinate, Inability to have a bowel movement, Using more than one pad per hour, Shortness of breath, Dizziness, Fainting spells, Swelling in the ankles, Chest pain, Prolonged hiccoughing, Increased palpitations (irregular heartbeat), Calf discomfort, Uncontrolled pain Additional Instructions: Advised self quarantine for 20 days from 09/26/2020. Allergies/Adverse Reactions: Allergies cefaclor [From Ceclor] Allergy (Verified 09/27/20 09:09) Hives Medications to take at Discharge Atorvastatin Calcium 40 mg PO DAILY 12/28/17 Isosorbide Mononitrate [Imdur] 30 mg PO DAILY 12/28/17 Multivitamin [Daily Multiple Vitamin] 1 tab PO DAILY 12/28/17 Paroxetine HCl [Paxil Cr] 37.5 mg PO DAILY 12/28/17 Ramipril [Altace] 10 mg PO DAILY 12/28/17 calcium carbonate 600 mg calcium (1,500 mg) tablet 600 mg PO BID tab 12/30/17 cholecalciferol (vitamin D3) 10 mcg (400 unit) capsule 400 unit PO QDAY 12/30/17 lactobacillus combination no.8 3 billion cell capsule 3,000 mmu cells PO QDAY 12/30/17 omega-3 fatty acids 1,000 mg capsule 1,000 mg PO QDAY 12/30/17 buspirone 15 mg tablet 15 mg PO DAILY 30 Days #60 tab 09/22/18 Fluticasone/Umeclidin/Vilanter [Trelegy Ellipta 100-62.5-25] 1 puff INHALATION DAILY 09/07/20 Famotidine [Pepcid] 20 mg PO BID 09/09/20 Fluticasone/Umeclidin/Vilanter [Trelegy Ellipta 100-62.5-25] 1 ea IH DAILY 09/09/20 Acetaminophen [Tylenol] 1,000 mg PO Q8 PRN #1 tab 09/21/20 Arthritis Pain Compound 0 click TOPICAL TID gm 09/21/20 Aspirin [Aspirin, Baby] 81 mg PO BIDCM #1 09/21/20 Magnesium Chloride [Slow-Mag] 71.5 mg PO BID #60 tablet. 09/21/20 Primary Care Physician: Nicci King DO [Primary Care Provider] - Test Results: Test results from this visit will be discussed in further detail at your follow- up appointment, if applicable.
--- NOTE | 2020-10-02 08:24 | DS.PCM_ITS ---
Discharge Date and Diagnosis - Problem List Patient Problems: Active and Suspected Problems (Last Reviewed 09/27/20 @ 13:[address] Ean Chirinos DO) COVID-19 (Acute) Pneumonia (Acute) Date of Admission: 09/27/20 Date of Discharge: 10/02/20 - Primary Discharge Diagnosis Acute Problems: Active Problems (Last Reviewed 09/27/20 @ 13:[address] Ean Chirinos DO) COVID-19 (Acute) Pneumonia (Acute) - Secondary Discharge Diagnosis Chronic Problems: Chronic Problems (Last Reviewed 09/27/20 @ 13:[address] Ean Chirinos DO) Closed right hip fracture (Chronic) Former tobacco use (Chronic) She quit in 1994 COPD (chronic obstructive pulmonary disease) (Chronic) Anxiety and depression (Chronic) CKD (chronic kidney disease) (Chronic) ? unclear. The GFR came up to 86 with hydration. 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 Ean Chirinos DO) COVID-19 (Acute) Pneumonia (Acute) - Physical Exam Vitals/I&O's: Vital Signs Temp Pulse Resp BP Pulse Ox 98.4 F 88 19 H 134/75 H 95 10/02/20 04:00 10/02/20 06:49 10/02/20 06:49 10/02/20 04:00 10/02/20 06:49 Oxygen Flow Rate (L/min) 70 Oxygen Delivery Method Bi-pap Weight: 111 lb 5.335 oz Body Mass Index (BMI) 19.7 Intake and Output for Last 24 Hours 09/30/20 10/01/20 10/02/20 23:59 23:59 23:59 Intake Total 970 / 970 350 / 350 Output Total 1300 / 1300 750 / 750 Balance -330 / -330 -400 / -400 Microbiology Past 72 Hours 09/27/20 09:40 Blood Culture (Wb) - Right Forearm Blood Culture - Final No growth in 5 days. 09/27/20 12:30 Urine, Clean Catch Urine Culture - Final Culture exhibits no growth. 09/27/20 09:40 Blood Culture (Wb) - Anticubital Left Blood Culture - Preliminary No growth in 48 hours. Current Medications Acetaminophen (Acetaminophen 500 Mg Tablet) 1,000 mg PO Q8H PRN PRN Reason: Pain 1-10 or Fever Last Admin: 09/28/20 12:01 Dose: 1,000 mg Documented by: Albuterol Sulfate (Albuterol Sulfate 18 Gm Inhaler (200 Puffs)) 2 puff IH Q4H PRN PRN PRN Reason: SHORTNESS OF BREATH Last Admin: 10/01/20 20:44 Dose: 2 puff Documented by: Aspirin (Aspirin 81 Mg Tab.Chew) 81 mg PO DAILY [facility] Last Admin: 10/01/20 09:39 Dose: 81 mg Documented by: Atorvastatin Calcium (Atorvastatin Calcium 40 Mg Tablet) 40 mg PO DAILY@2200 [facility] Last Admin: 10/01/20 20:44 Dose: 40 mg Documented by: Budesonide (Budesonide Respules 0.5 Mg/2 Ml Ampul.Neb.) 0.5 mg INHALATION Q12H.RT [facility] Last Admin: 10/02/20 06:48 Dose: 0.5 mg Documented by: Buspirone HCl (Buspirone 15 Mg Tablet) 15 mg PO DAILY [facility] Last Admin: 10/01/20 09:38 Dose: 15 mg Documented by: Calcium Carbonate (Calcium (Elemental) 500 Mg Tablet) 500 mg PO BID [facility] Last Admin: 10/01/20 20:44 Dose: 500 mg Documented by: Dexamethasone (Dexamethasone 4 Mg Tablet) 6 mg PO DAILY [facility] Stop: 10/05/20 23:59 Last Admin: 10/01/20 09:39 Dose: 6 mg Documented by: Enoxaparin Sodium (Enoxaparin 40 Mg/0.4 Ml Syringe) 40 mg SC DAILY [facility] Last Admin: 10/01/20 09:39 Dose: 40 mg Documented by: Famotidine (Famotidine 20 Mg Tablet) 20 mg PO DAILY [facility] Last Admin: 10/01/20 09:38 Dose: 20 mg Documented by: Sodium Chloride () 250 mls @ 15 mls/hr IV .[id number] PRN PRN Reason: Saline Flush Last Infusion: 09/29/20 04:54 Dose: 0 mls/hr Documented by: Sodium Chloride () 250 mls @ 15 mls/hr IV .[id number] PRN PRN Reason: Additional IVPB Infusion Isosorbide Mononitrate (Isosorbide Mononitrate 30 Mg Tablet) 30 mg PO DAILY [facility] Last Admin: 10/01/20 09:38 Dose: 30 mg Documented by: Lactobacillus Acidophilus (Lactobacillus Acidophilus) 1 tablet PO DAILY [facility] Last Admin: 10/01/20 09:38 Dose: 1 tablet Documented by: Lorazepam (Lorazepam 0.5 Mg Tablet) 0.5 mg PO Q6H PRN PRN PRN Reason: ANXIETY Last Admin: 10/01/20 20:47 Dose: 0.5 mg Documented by: Magnesium Chloride (Magnesium Chloride 64 Mg Delay Rel.Tablet) 64 mg PO BID [facility] Last Admin: 10/01/20 20:44 Dose: 64 mg Documented by: Miscellaneous Information (Inhaler, Assist Devices 1 Each Spacer) 0 each INHALATION PRN PRN PRN Reason: WITH INHALER Multivitamins (Multivitamins,Therapeutic Tablet) 1 tablet PO DAILY [facility] Last Admin: 10/01/20 09:38 Dose: 1 tablet Documented by: Paroxetine HCl (Paroxetine Cr 12.5 Mg Tablet) 37.5 mg PO DAILY [facility] Last Admin: 10/01/20 09:38 Dose: 37.5 mg Documented by: Ramipril (Ramipril 10 Mg Capsule) 10 mg PO DAILY [facility] Last Admin: 10/01/20 09:39 Dose: 10 mg Documented by: Sodium Chloride (0.9% Saline Lock 10 Ml Syringe) 10 - 40 ml IV UD PRN PRN Reason: SALINE FLUSH Last Admin: 09/28/20 10:03 Dose: 10 ml Documented by: Discharge Activity: May Not Drive Call your doctor if you observe: Fever of 101 or Higher, Numbness or Tingling, Inability to urinate, Inability to have a bowel movement, Using more than one pad per hour, Shortness of breath, Dizziness, Fainting spells, Swelling in the ankles, Chest pain, Prolonged hiccoughing, Increased palpitations (irregular heartbeat), Calf discomfort, Uncontrolled pain Home Medications: Medications to take at Discharge Atorvastatin Calcium 40 mg PO DAILY 12/28/17 Isosorbide Mononitrate [Imdur] 30 mg PO DAILY 12/28/17 Multivitamin [Daily Multiple Vitamin] 1 tab PO DAILY 12/28/17 Paroxetine HCl [Paxil Cr] 37.5 mg PO DAILY 12/28/17 Ramipril [Altace] 10 mg PO DAILY 12/28/17 calcium carbonate 600 mg calcium (1,500 mg) tablet 600 mg PO BID tab 12/30/17 cholecalciferol (vitamin D3) 10 mcg (400 unit) capsule 400 unit PO QDAY 12/30/17 lactobacillus combination no.8 3 billion cell capsule 3,000 mmu cells PO QDAY 12/30/17 omega-3 fatty acids 1,000 mg capsule 1,000 mg PO QDAY 12/30/17 buspirone 15 mg tablet 15 mg PO DAILY 30 Days #60 tab 09/22/18 Fluticasone/Umeclidin/Vilanter [Trelegy Ellipta 100-62.5-25] 1 puff INHALATION DAILY 09/07/20 Famotidine [Pepcid] 20 mg PO BID 09/09/20 Fluticasone/Umeclidin/Vilanter [Trelegy Ellipta 100-62.5-25] 1 ea IH DAILY 09/09/20 Acetaminophen [Tylenol] 1,000 mg PO Q8 PRN #1 tab 09/21/20 Arthritis Pain Compound 0 click TOPICAL TID gm 09/21/20 Aspirin [Aspirin, Baby] 81 mg PO BIDCM #1 09/21/20 Magnesium Chloride [Slow-Mag] 71.5 mg PO BID #60 tablet. 09/21/20 Primary Care Physician: Nicci King DO [Primary Care Provider] - Medical Necessity - Tobacco Use Smoking Status: Former smoker
[2020-10-02] MEDS: Enoxaparin 40 MG/0.4 ML Syringe SC (09:58)
[2020-10-02] MEDS: dexAMETHasone 4 MG Tablet 6 MG PO (09:58)
[2020-10-02] MEDS: busPIRone 15 MG TABLET PO (09:59)
[2020-10-02] MEDS: Isosorbide Mononitrate 30 MG Tablet PO (09:59)
[2020-10-02] MEDS: Multivitamins,Therapeutic Tablet 1 TABLET PO (09:59)
[2020-10-02] MEDS: Magnesium Chloride 64 MG Delay Rel.Tablet PO ×2 (09:59→20:17)
[2020-10-02] MEDS: Ramipril 10 MG Capsule PO (09:59)
[2020-10-02] MEDS: PARoxetine CR 12.5 MG Tablet 37.5 MG PO (09:59)
[2020-10-02] MEDS: Aspirin 81 MG TAB.CHEW PO (09:59)
[2020-10-02] MEDS: Famotidine 20 MG Tablet PO (09:59)
[2020-10-02] MEDS: Calcium (Elemental) 500 MG Tablet PO ×2 (10:00→20:17)
--- NOTE | 2020-10-02 10:08 | PN_ITS ---
Patient Problems: Active and Suspected Problems (Last Reviewed 09/27/20 @ 13:[address] Ean Chirinos, DO) COVID-19 (Acute) Pneumonia (Acute) Reason for Visit: Follow-up for acute hypoxic respiratory failure secondary to COVID-19 pneumonia Objective: Patient on BiPAP and humidified high airflow. Still short of breath. Has mild dry cough. Denies hemoptysis. No chest pain or pressure. Has not moved bowel for last 2 days Physical exam General: Alert, Oriented x3, Cooperative, BMI 19.7 kg/m? HEENT: Atraumatic, PERRLA, EOMI, Normocephalic Oral: No Gingival or Mucosal Lesions/ Ulcerations Neck: Supple, No JVD, Negative Carotid Bruits Lungs: Air entry severely diminished in bilateral lung bases. No crepitation/rhonchi Cardiovascular: Regular rate, Regular Rhythm, Normal S1, Normal S2, No murmurs Abdomen: Bowel Sounds Present, Soft, Non Tender, Non-Distended : No renal angle tenderness. No suprapubic tenderness. Extremities: No edema, Capillary Refill Less than 3 Seconds Skin: No rashes, No breakdown Musculoskeletal: Mild to moderate atrophy of extremity muscles. Loss of subcutaneous fat. No Tenderness to Palpation of Joints or Extremities Neurological: Cranial nerves II-XII grossly intact, Deep Tendon Reflexes 2+/4 and Symmetrical, Neuro grossly intact Psych/Mental Status: Normal Affect, Appropriate. Vitals/I&O's: Vital Signs Temp Pulse Resp BP Pulse Ox 98.4 F 91 16 134/75 H 90 10/02/20 04:00 10/02/20 09:16 10/02/20 09:16 10/02/20 04:00 10/02/20 09:18 Oxygen Flow Rate (L/min) 60 Oxygen Delivery Method Airvo Weight: 111 lb 5.335 oz Body Mass Index (BMI) 19.7 Intake and Output for Last 24 Hours 09/30/20 10/01/20 10/02/20 23:59 23:59 23:59 Intake Total 970 / 970 350 / 350 Output Total 1300 / 1300 750 / 750 Balance -330 / -330 -400 / -400 Microbiology Past 72 Hours 09/27/20 09:40 Blood Culture (Wb) - Right Forearm Blood Culture - Final No growth in 5 days. 09/27/20 12:30 Urine, Clean Catch Urine Culture - Final Culture exhibits no growth. 09/27/20 09:40 Blood Culture (Wb) - Anticubital Left Blood Culture - Preliminary No growth in 48 hours. Current Medications Acetaminophen (Acetaminophen 500 Mg Tablet) 1,000 mg PO Q8H PRN PRN Reason: Pain 1-10 or Fever Last Admin: 09/28/20 12:01 Dose: 1,000 mg Documented by: Albuterol Sulfate (Albuterol Sulfate 18 Gm Inhaler (200 Puffs)) 2 puff IH Q4H PRN PRN PRN Reason: SHORTNESS OF BREATH Last Admin: 10/01/20 20:44 Dose: 2 puff Documented by: Aspirin (Aspirin 81 Mg Tab.Chew) 81 mg PO DAILY [facility] Last Admin: 10/02/20 09:59 Dose: 81 mg Documented by: Atorvastatin Calcium (Atorvastatin Calcium 40 Mg Tablet) 40 mg PO DAILY@2200 [facility] Last Admin: 10/01/20 20:44 Dose: 40 mg Documented by: Budesonide (Budesonide Respules 0.5 Mg/2 Ml Ampul.Neb.) 0.5 mg INHALATION Q12H.RT [facility] Last Admin: 10/02/20 06:48 Dose: 0.5 mg Documented by: Buspirone HCl (Buspirone 15 Mg Tablet) 15 mg PO DAILY [facility] Last Admin: 10/02/20 09:59 Dose: 15 mg Documented by: Calcium Carbonate (Calcium (Elemental) 500 Mg Tablet) 500 mg PO BID [facility] Last Admin: 10/02/20 10:00 Dose: 500 mg Documented by: Dexamethasone (Dexamethasone 4 Mg Tablet) 6 mg PO DAILY [facility] Stop: 10/05/20 23:59 Last Admin: 10/02/20 09:58 Dose: 6 mg Documented by: Enoxaparin Sodium (Enoxaparin 40 Mg/0.4 Ml Syringe) 40 mg SC DAILY [facility] Last Admin: 10/02/20 09:58 Dose: 40 mg Documented by: Famotidine (Famotidine 20 Mg Tablet) 20 mg PO DAILY [facility] Last Admin: 10/02/20 09:59 Dose: 20 mg Documented by: Sodium Chloride () 250 mls @ 15 mls/hr IV .[id number] PRN PRN Reason: Saline Flush Last Infusion: 09/29/20 04:54 Dose: 0 mls/hr Documented by: Sodium Chloride () 250 mls @ 15 mls/hr IV .[id number] PRN PRN Reason: Additional IVPB Infusion Isosorbide Mononitrate (Isosorbide Mononitrate 30 Mg Tablet) 30 mg PO DAILY [facility] Last Admin: 10/02/20 09:59 Dose: 30 mg Documented by: Lactobacillus Acidophilus (Lactobacillus Acidophilus) 1 tablet PO DAILY [facility] Last Admin: 10/02/20 09:59 Dose: 1 tablet Documented by: Lorazepam (Lorazepam 0.5 Mg Tablet) 0.5 mg PO Q6H PRN PRN PRN Reason: ANXIETY Last Admin: 10/01/20 20:47 Dose: 0.5 mg Documented by: Magnesium Chloride (Magnesium Chloride 64 Mg Delay Rel.Tablet) 64 mg PO BID [facility] Last Admin: 10/02/20 09:59 Dose: 64 mg Documented by: Miscellaneous Information (Inhaler, Assist Devices 1 Each Spacer) 0 each INHALATION PRN PRN PRN Reason: WITH INHALER Multivitamins (Multivitamins,Therapeutic Tablet) 1 tablet PO DAILY [facility] Last Admin: 10/02/20 09:59 Dose: 1 tablet Documented by: Paroxetine HCl (Paroxetine Cr 12.5 Mg Tablet) 37.5 mg PO DAILY [facility] Last Admin: 10/02/20 09:59 Dose: 37.5 mg Documented by: Ramipril (Ramipril 10 Mg Capsule) 10 mg PO DAILY [facility] Last Admin: 10/02/20 09:59 Dose: 10 mg Documented by: Sodium Chloride (0.9% Saline Lock 10 Ml Syringe) 10 - 40 ml IV UD PRN PRN Reason: SALINE FLUSH Last Admin: 09/28/20 10:03 Dose: 10 ml Documented by: STROKE Vital Signs/Narrative: Vital Signs Pulse Resp Pulse Ox 10/02/20 09:18 90 10/02/20 09:16 91 16 90 10/02/20 06:49 88 19 H 95 Medical Necessity - Tobacco Use Smoking Status: Former smoker Assessment/Plan All Active Problems (Last Reviewed 09/27/20 @ 13:[address] Ean Chirinos, DO) COVID-19 (Acute) Pneumonia (Acute) Pulmonary edema (Resolved) Pneumonia (Resolved) Physical debility (Acute) Dehydration (Acute) Tachycardia (Acute) This 79-year-old female with history of COPD on 3 L of home oxygen was admitted with fever 102 Fahrenheit, hypoxia, dizziness on 09/26 after she had COVID-19 vaccination. Patient had Levaquin in ED. 1. Acute COVID 19 pneumonia: Chest CT scan showed no evidence of PE but emphysematous changes the right upper lobe and bronchiectasis in both lower lobes, worse on RLL and new focal infiltrate in RLL. Patient had first COVID-19 vaccination on 09/26 and developed fever. COVID-19 rapid antigen is positive and patient has fever, lymphopenia and elevated D-dimer. On dexamethasone and remdesivir, through 10/01. On broad-spectrum antibiotic with suspicion of HCAP as patient was hospitalized last 3 months. ID has been consulted. On IV Zosyn. Urinary antigens are negative. Blood cultures x2 are negative for more than 48 hours. 10/01: Urine culture shows no growth. Seen by ebd special education teacher. No fever in last 72 hours. Still requires high FiO2. Mild leukocytosis. Inflammatory markers BNP and D-dimer are elevated. Procalcitonin 0.1. 10/02: Work-up for bacterial infection is negative therefore Zosyn was discontinued yesterday. 2. Dizziness: Probably due to BPPV, vertigo: Resolved. 3. Acute on chronic hypoxic respiratory failure due to COPD and bronchiectasis as mentioned above. Patient follows Dr. Joy. As mentioned above patient on BiPAP. [employer] Charging [employer] consulted. 10/02: Patient is still on BiPAP high flow oxygen. Complains of secretions on BiPAP. 4. Possible Gram negative pneumonia: CT findings as mentioned above. 5. Recent right hip femoral neck fracture: Patient had recent right total hip replacement by Dr. Arreaga on 09/08. PT and OT to continue 6. VTE prophylaxis: On enoxaparin 40 mg subcu daily. 7. Advanced care planning: Patient wishes to be DNR Comfort Care arrest with intubation if necessary. Clinical Impression(s) from Imaging Studies Chest X-Ray 09/27/20 10:30 IMPRESSION: Persistent bibasilar infiltrates worse on the left side although there has been moderate clearing as compared to prior study. This is superimposed on emphysematous changes and pulmonary scarring. Chest CTA 09/27/20 10:36 IMPRESSION: No evidence of pulmonary embolism. Improved aeration of both lungs as compared to prior study with residual changes present superimposed on emphysematous changes and bronchiectasis. Microbiology Past 72 Hours 09/27/20 09:40 Blood Culture (Wb) - Anticubital Left Blood Culture - Final No growth in 5 days. 09/27/20 09:40 Blood Culture (Wb) - Right Forearm Blood Culture - Final No growth in 5 days. 09/27/20 12:30 Urine, Clean Catch Urine Culture - Final Culture exhibits no growth. Inpatient E&M: 34487 Subs Hosp L2
--- NOTE | 2020-10-02 13:59 | PCM.PN.ID ---
Patient Problems: Active and Suspected Problems (Last Reviewed 09/27/20 @ 13:[address] Ean Chirinos, DO) COVID-19 (Acute) Pneumonia (Acute) Subjective: Feeling better, breathing improved, no fever - Physical Exam Vitals/I&O's: Vital Signs Temp Pulse Resp BP Pulse Ox 98.0 F 92 16 124/64 H 83 10/02/20 12:00 10/02/20 12:00 10/02/20 12:00 10/02/20 12:00 10/02/20 12:39 Oxygen Flow Rate (L/min) 92 Oxygen Delivery Method Airvo Weight: 50.5 kg Body Mass Index (BMI) 19.7 Intake and Output for Last 24 Hours 09/30/20 10/01/20 10/02/20 23:59 23:59 23:59 Intake Total 970 / 970 350 / 350 Output Total 1300 / 1300 750 / 750 600 / 600 Balance -330 / -330 -400 / -400 -600 / -600 General: Alert, Cooperative, No apparent distress Lungs: Clear to auscultation, Diminished Cardiovascular: Regular rate, Regular Rhythm Abdomen: Soft, Non Tender, Non-Distended Skin: No rashes Microbiology Past 72 Hours 09/27/20 09:40 Blood Culture (Wb) - Anticubital Left Blood Culture - Final No growth in 5 days. 09/27/20 09:40 Blood Culture (Wb) - Right Forearm Blood Culture - Final No growth in 5 days. 09/27/20 12:30 Urine, Clean Catch Urine Culture - Final Culture exhibits no growth. Current Medications Acetaminophen (Acetaminophen 500 Mg Tablet) 1,000 mg PO Q8H PRN PRN Reason: Pain 1-10 or Fever Last Admin: 09/28/20 12:01 Dose: 1,000 mg Documented by: Albuterol Sulfate (Albuterol Sulfate 18 Gm Inhaler (200 Puffs)) 2 puff IH Q4H PRN PRN PRN Reason: SHORTNESS OF BREATH Last Admin: 10/01/20 20:44 Dose: 2 puff Documented by: Aspirin (Aspirin 81 Mg Tab.Chew) 81 mg PO DAILY [facility] Last Admin: 10/02/20 09:59 Dose: 81 mg Documented by: Atorvastatin Calcium (Atorvastatin Calcium 40 Mg Tablet) 40 mg PO DAILY@2200 [facility] Last Admin: 10/01/20 20:44 Dose: 40 mg Documented by: Budesonide (Budesonide Respules 0.5 Mg/2 Ml Ampul.Neb.) 0.5 mg INHALATION Q12H.RT [facility] Last Admin: 10/02/20 06:48 Dose: 0.5 mg Documented by: Buspirone HCl (Buspirone 15 Mg Tablet) 15 mg PO DAILY [facility] Last Admin: 10/02/20 09:59 Dose: 15 mg Documented by: Calcium Carbonate (Calcium (Elemental) 500 Mg Tablet) 500 mg PO BID [facility] Last Admin: 10/02/20 10:00 Dose: 500 mg Documented by: Dexamethasone (Dexamethasone 4 Mg Tablet) 6 mg PO DAILY [facility] Stop: 10/05/20 23:59 Last Admin: 10/02/20 09:58 Dose: 6 mg Documented by: Enoxaparin Sodium (Enoxaparin 40 Mg/0.4 Ml Syringe) 40 mg SC DAILY [facility] Last Admin: 10/02/20 09:58 Dose: 40 mg Documented by: Famotidine (Famotidine 20 Mg Tablet) 20 mg PO DAILY [facility] Last Admin: 10/02/20 09:59 Dose: 20 mg Documented by: Fluticasone Propionate (Fluticasone 0.05% 1 [place] Nasal.Sry) 1 spray NASAL BID [facility] Sodium Chloride () 250 mls @ 15 mls/hr IV .[id number] PRN PRN Reason: Saline Flush Last Infusion: 09/29/20 04:54 Dose: 0 mls/hr Documented by: Sodium Chloride () 250 mls @ 15 mls/hr IV .[id number] PRN PRN Reason: Additional IVPB Infusion Isosorbide Mononitrate (Isosorbide Mononitrate 30 Mg Tablet) 30 mg PO DAILY [facility] Last Admin: 10/02/20 09:59 Dose: 30 mg Documented by: Lactobacillus Acidophilus (Lactobacillus Acidophilus) 1 tablet PO DAILY [facility] Last Admin: 10/02/20 09:59 Dose: 1 tablet Documented by: Lorazepam (Lorazepam 0.5 Mg Tablet) 0.5 mg PO Q6H PRN PRN PRN Reason: ANXIETY Last Admin: 10/01/20 20:47 Dose: 0.5 mg Documented by: Magnesium Chloride (Magnesium Chloride 64 Mg Delay Rel.Tablet) 64 mg PO BID [facility] Last Admin: 10/02/20 09:59 Dose: 64 mg Documented by: Miscellaneous Information (Inhaler, Assist Devices 1 Each Spacer) 0 each INHALATION PRN PRN PRN Reason: WITH INHALER Multivitamins (Multivitamins,Therapeutic Tablet) 1 tablet PO DAILY [facility] Last Admin: 10/02/20 09:59 Dose: 1 tablet Documented by: Paroxetine HCl (Paroxetine Cr 12.5 Mg Tablet) 37.5 mg PO DAILY [facility] Last Admin: 10/02/20 09:59 Dose: 37.5 mg Documented by: Polyethylene Glycol (Polyethylene Glycol 3350 17 Gm Packet) 17 gm PO DAILY [facility] Ramipril (Ramipril 10 Mg Capsule) 10 mg PO DAILY [facility] Last Admin: 10/02/20 09:59 Dose: 10 mg Documented by: Senna/Docusate Sodium (Senna/Docusate Sodium 1 Tablet) 2 tablet PO BID [facility] Stop: 10/04/20 22:01 Sodium Chloride (0.9% Saline Lock 10 Ml Syringe) 10 - 40 ml IV UD PRN PRN Reason: SALINE FLUSH Last Admin: 09/28/20 10:03 Dose: 10 ml Documented by: Sodium Chloride (Sodium Chloride 0.65% 1 [place].Btl) 2 spray NASAL BID PRN PRN PRN Reason: NASAL DRYNESS Medical Necessity - Tobacco Use Smoking Status: Former smoker Route of nutrition/ use of supplements: [] Nutritional Intake: [] IV Site: [] Cardona Catheter: [] - Assessment/Plan Antibiotics: [] Assessment/Plan: [] Active and Suspected Problems (Last Reviewed 09/27/20 @ 13:[address] Ean Chirinos, DO) COVID-19 (Acute) Pneumonia (Acute) covid with hypoxia, underlying copd on 3L home o2 - sx started around 09/26. She was started on remdesivir on 09/27. Off vanc/zosyn. O2 much improved. Plan on 20 days of quarantine from 09/26, 10 days of dex total. D-dimer was 3. Will follow
[2020-10-02] MEDS: Polyethylene Glycol 3350 17 GM PACKET PO (14:28)
[2020-10-02] MEDS: Ipratropium/Albuterol Sulfate 3 ML AMPUL.NEB INHALATION (19:00)
[2020-10-02] MEDS: Atorvastatin Calcium 40 MG Tablet PO (20:17)
[2020-10-02] MEDS: Fluticasone 0.05% 1 SPRAY NASAL.SRY NASAL (20:17)
[2020-10-02] MEDS: Senna/Docusate Sodium 1 Tablet 2 TABLET PO (20:18)
[2020-10-03] VITALS (16 sets, daily range): BP systolic 104–134; BP diastolic 58–87; PULSE 77–98; RESP 12–23; TEMP 36.2–37; O2SAT 91–100
[2020-10-03] MEDS: Acetaminophen 500 MG Tablet 1000 MG PO ×2 (00:53→16:36)
[2020-10-03 05:56] LABS: Absolute Lymphocyte Count 1.28 X10^3/uL (0.83-4.51); Absolute Neutrophil Count 9.9 X10^3/uL (2.0-7.7); Basophil# 0.01 X10^3/uL; Basophil% 0.1 % (0-1); Eosinophil# 0.04 X10^3/uL; Eosinophils% 0.3 % (0-5); Hematocrit 31.7 % (37-47); Hemoglobin 10.2 g/dL (12.0-15.0); Lymphocyte # 1.28 X10^3/ul (4.0); Lymphocyte % 10.2 % (19-41); Mean Corp Hgb Conc 32.2 g/dL (32-36); Mean Corpuscular Hgb 32.6 pg (27.0-32.0); Mean Corpuscular Volume 101.3 fL (81-99); Mean Platelet Vol. 10.8 fl (6.2-12.0); Monocyte# 1.22 X10^3/uL; Monocyte% 9.7 % (0-10); NRBC Flagged by Analyzer 0 % (0-5); Neutrophil # 9.85 X10^3/uL (2.7-7.7); Neutrophil % 78.6 % (47-70); Platelet Count 302 K/mm3 (150-450); RBC Distribution Width CV 14.6 % (11.6-14.6); RBC Distribution Width SD 52.8 fl (35.1-43.9); Red Blood Count 3.13 M/mm3 (4.2-5.4); White Blood Count 12.5 K/mm3 (4.4-11.0)
[2020-10-03 06:45] LABS: D-Dimer Quantitative (DVT/PE) 1.51 FEU/ug/m (0.27-0.49)
[2020-10-03 07:31] LABS: ALB/GLOB Ratio 0.7 RATIO (0.9-2.4); AST(SGOT) 27 U/L (15-37); Alanine Aminotransfer ALT/SGPT 27 U/L (13-56); Albumin, Serum 2.5 g/dL (3.2-5.0); Alkaline Phosphatase 63 U/L (45-117); Anion Gap 6 (5-15); BUN 22 mg/dL (7-18); BUN/Creat Ratio 26.9 RATIO (10-20); Calcium,Total 8.7 mg/dL (8.5-10.1); Chloride 109 mmol/L (98-107); Creatinine, Serum 0.82 mg/dL (0.55-1.02); EST Glomerular Filtration Rate 71 mL/min (>60); Est Glom Filt Rate - Afr Amer 86 mL/min (>60); Globulin 3.5 g/dL (2.2-4.2); Glucose 94 mg/dL (74-106); Potassium 3.9 mmol/L (3.5-5.1); Sodium Level 145 mmol/L (136-145)
--- NOTE | 2020-10-03 07:42 | PN_ITS ---
Patient Problems: Active and Suspected Problems (Last Reviewed 09/27/20 @ 13:[address] Ean Chirinos, DO) COVID-19 (Acute) Pneumonia (Acute) Reason for Visit: Follow-up for acute hypoxic respiratory failure secondary to COVID-19 pneumonia with baseline emphysema and bronchiectasis Objective: On BiPAP alternating with high flow humidified oxygen. No fever. Heart rate and blood pressure are in acceptable limit. Physical exam General: Alert, Oriented x3, Cooperative, BMI 19.7 kg/m? HEENT: Atraumatic, PERRLA, EOMI, Normocephalic Oral: No Gingival or Mucosal Lesions/ Ulcerations Neck: Supple, No JVD, Negative Carotid Bruits Lungs: Air entry diminished in bilateral lung bases. No crepitation/rhonchi. Patient on BiPAP. Cardiovascular: Regular rate, Regular Rhythm, Normal S1, Normal S2, No murmurs Abdomen: Bowel Sounds Present, Soft, Non Tender, Non-Distended : No renal angle tenderness. No suprapubic tenderness. Extremities: No edema, Capillary Refill Less than 3 Seconds Skin: No rashes, No breakdown Musculoskeletal: No Tenderness to Palpation of Joints or Extremities. Mild to moderate muscle atrophy of extremities and loss of subcutaneous fat. Neurological: Cranial nerves II-XII grossly intact, Deep Tendon Reflexes 2+/4 and Symmetrical, Neuro grossly intact Psych/Mental Status: Normal Affect, Appropriate. Vitals/I&O's: Vital Signs Temp Pulse Resp BP Pulse Ox 98.2 F 88 23 H 130/87 H 100 10/03/20 03:00 10/03/20 04:43 10/03/20 04:43 10/03/20 03:00 10/03/20 04:43 Oxygen Flow Rate (L/min) 60 Oxygen Delivery Method Bi-pap Weight: 111 lb 5.335 oz Body Mass Index (BMI) 19.7 Intake and Output for Last 24 Hours 10/01/20 10/02/20 10/03/20 23:59 23:59 23:59 Intake Total 350 / 350 Output Total 750 / 750 600 / 800 450 / 450 Balance -400 / -400 -600 / -800 -450 / -450 Microbiology Past 72 Hours 09/27/20 09:40 Blood Culture (Wb) - Anticubital Left Blood Culture - Final No growth in 5 days. 09/27/20 09:40 Blood Culture (Wb) - Right Forearm Blood Culture - Final No growth in 5 days. 09/27/20 12:30 Urine, Clean Catch Urine Culture - Final Culture exhibits no growth. Laboratory Results 10/03/20 05:42: WBC 12.5 H, RBC 3.13 L, Hgb 10.2 L, Hct 31.7 L, MCV 101.3 H, MCH 32.6 H, MCHC 32.2, RDW Std Deviation 52.8 H, RDW Coeff of Linette 14.6, Plt Count 302, MPV 10.8, Immature Gran % (Auto) 1.100 H, Neut % (Auto) 78.6 H, Lymph % (Auto) 10.2 L, Antelope % (Auto) 9.7, Eos % (Auto) 0.3, Baso % (Auto) 0.1, Absolute Neuts (auto) 9.9 H, Absolute Lymphs (auto) 1.28, Nucleated RBC % 0 10/03/20 05:42: Sodium 145, Potassium 3.9, Chloride 109 H, Carbon Dioxide 30.0, Anion Gap 6, BUN 22 H, Creatinine 0.82, Estim Creat Clear Calc 42.90, Est GFR (MDRD) Af Amer 86, Est GFR (MDRD) Non-Af 71, BUN/Creatinine Ratio 26.9 H, Glucose 94, Calcium 8.7, Total Bilirubin 0.50, AST 27, ALT 27, Alkaline Phosphatase 63, Total Protein 6.0 L, Albumin 2.5 L, Globulin 3.5, Albumin/Globulin Ratio 0.7 L 10/03/20 05:42: D-Dimer Quant (PE/DVT) 1.51 H* Current Medications Acetaminophen (Acetaminophen 500 Mg Tablet) 1,000 mg PO Q8H PRN PRN Reason: Pain 1-10 or Fever Last Admin: 10/03/20 00:53 Dose: 1,000 mg Documented by: Albuterol Sulfate (Albuterol Sulfate 18 Gm Inhaler (200 Puffs)) 2 puff IH Q4H PRN PRN PRN Reason: SHORTNESS OF BREATH Last Admin: 10/01/20 20:44 Dose: 2 puff Documented by: Albuterol/Ipratropium (Ipratropium/Albuterol Sulfate 3 Ml Ampul.Neb) 3 ml INHALATION Q4HWA.RT [facility] Last Admin: 10/02/20 19:00 Dose: 3 ml Documented by: Aspirin (Aspirin 81 Mg Tab.Chew) 81 mg PO DAILY [facility] Last Admin: 10/02/20 09:59 Dose: 81 mg Documented by: Atorvastatin Calcium (Atorvastatin Calcium 40 Mg Tablet) 40 mg PO DAILY@2200 [facility] Last Admin: 10/02/20 20:17 Dose: 40 mg Documented by: Budesonide (Budesonide Respules 0.5 Mg/2 Ml Ampul.Neb.) 0.5 mg INHALATION Q12H.RT [facility] Last Admin: 10/02/20 19:00 Dose: 0.5 mg Documented by: Buspirone HCl (Buspirone 15 Mg Tablet) 15 mg PO DAILY [facility] Last Admin: 10/02/20 09:59 Dose: 15 mg Documented by: Calcium Carbonate (Calcium (Elemental) 500 Mg Tablet) 500 mg PO BID [facility] Last Admin: 10/02/20 20:17 Dose: 500 mg Documented by: Dexamethasone (Dexamethasone 4 Mg Tablet) 6 mg PO DAILY [facility] Stop: 10/05/20 23:59 Last Admin: 10/02/20 09:58 Dose: 6 mg Documented by: Enoxaparin Sodium (Enoxaparin 40 Mg/0.4 Ml Syringe) 40 mg SC DAILY [facility] Last Admin: 10/02/20 09:58 Dose: 40 mg Documented by: Famotidine (Famotidine 20 Mg Tablet) 20 mg PO DAILY [facility] Last Admin: 10/02/20 09:59 Dose: 20 mg Documented by: Fluticasone Propionate (Fluticasone 0.05% 1 [place] Nasal.Sry) 1 spray NASAL BID [facility] Last Admin: 10/02/20 20:17 Dose: 1 spray Documented by: Furosemide (Furosemide 40 Mg/4 Ml Vial) 40 mg IV BID@1000,1800 [facility] Sodium Chloride () 250 mls @ 15 mls/hr IV .[id number] PRN PRN Reason: Saline Flush Last Infusion: 09/29/20 04:54 Dose: 0 mls/hr Documented by: Sodium Chloride () 250 mls @ 15 mls/hr IV .[id number] PRN PRN Reason: Additional IVPB Infusion Isosorbide Mononitrate (Isosorbide Mononitrate 30 Mg Tablet) 30 mg PO DAILY [facility] Last Admin: 10/02/20 09:59 Dose: 30 mg Documented by: Lactobacillus Acidophilus (Lactobacillus Acidophilus) 1 tablet PO DAILY [facility] Last Admin: 10/02/20 09:59 Dose: 1 tablet Documented by: Lorazepam (Lorazepam 0.5 Mg Tablet) 0.5 mg PO Q6H PRN PRN PRN Reason: ANXIETY Last Admin: 10/01/20 20:47 Dose: 0.5 mg Documented by: Magnesium Chloride (Magnesium Chloride 64 Mg Delay Rel.Tablet) 64 mg PO BID [facility] Last Admin: 10/02/20 20:17 Dose: 64 mg Documented by: Miscellaneous Information (Inhaler, Assist Devices 1 Each Spacer) 0 each INHALATION PRN PRN PRN Reason: WITH INHALER Multivitamins (Multivitamins,Therapeutic Tablet) 1 tablet PO DAILY [facility] Last Admin: 10/02/20 09:59 Dose: 1 tablet Documented by: Paroxetine HCl (Paroxetine Cr 12.5 Mg Tablet) 37.5 mg PO DAILY [facility] Last Admin: 10/02/20 09:59 Dose: 37.5 mg Documented by: Polyethylene Glycol (Polyethylene Glycol 3350 17 Gm Packet) 17 gm PO DAILY [facility] Last Admin: 10/02/20 14:28 Dose: 17 gm Documented by: Ramipril (Ramipril 10 Mg Capsule) 10 mg PO DAILY [facility] Last Admin: 10/02/20 09:59 Dose: 10 mg Documented by: Senna/Docusate Sodium (Senna/Docusate Sodium 1 Tablet) 2 tablet PO BID [facility] Stop: 10/04/20 22:01 Last Admin: 10/02/20 20:18 Dose: 2 tablet Documented by: Sodium Chloride (0.9% Saline Lock 10 Ml Syringe) 10 - 40 ml IV UD PRN PRN Reason: SALINE FLUSH Last Admin: 09/28/20 10:03 Dose: 10 ml Documented by: Sodium Chloride (Sodium Chloride 0.65% 1 [place].Btl) 2 spray NASAL BID PRN PRN PRN Reason: NASAL DRYNESS STROKE Vital Signs/Narrative: Vital Signs Pulse Resp Pulse Ox 10/03/20 04:43 88 23 H 100 10/03/20 04:00 77 Medical Necessity - Tobacco Use Smoking Status: Former smoker Assessment/Plan All Active Problems (Last Reviewed 09/27/20 @ 13:[address] Ean Chirinos, DO) COVID-19 (Acute) Pneumonia (Acute) Pulmonary edema (Resolved) Pneumonia (Resolved) Physical debility (Acute) Dehydration (Acute) Tachycardia (Acute) This 79-year-old female with history of COPD on 3 L of home oxygen was admitted with fever 102 Fahrenheit, hypoxia, dizziness on 09/26 after she had COVID-19 vaccination. Patient had Levaquin in ED. 1. Acute COVID 19 pneumonia: Chest CT scan showed no evidence of PE but emphysematous changes the right upper lobe and bronchiectasis in both lower lobes, worse on RLL and new focal infiltrate in RLL. Patient had first COVID-19 vaccination on 09/26 and developed fever. COVID-19 rapid antigen is positive and patient has fever, lymphopenia and elevated D-dimer. On dexamethasone and remdesivir, through 10/01. On broad-spectrum antibiotic with suspicion of HCAP as patient was hospitalized last 3 months. ID has been consulted. On IV Zosyn. Urinary antigens are negative. Blood cultures x2 are negative for more than 48 hours. 10/01: Urine culture shows no growth. Seen by soil sort worker. No fever in last 72 hours. Still requires high FiO2. Mild leukocytosis. Inflammatory markers BNP and D-dimer are elevated. Procalcitonin 0.1. 10/02: Work-up for bacterial infection is negative therefore Zosyn was discontinued yesterday. 10/03: Patient is still dyspnea at rest and hypoxic and on Bipap 2. Dizziness: Probably due to BPPV, vertigo: Resolved. 3. Acute on chronic hypoxic respiratory failure due to COPD and bronchiectasis as mentioned above. Patient follows Dr. Joy. As mentioned above patient on BiPAP. Manager Rfid consulted. 10/02: Patient is still on BiPAP high flow oxygen. Complains of secretions on BiPAP. 4. Gram negative pneumonia ruled out 5. Recent right hip femoral neck fracture: Patient had recent right total hip replacement by Dr. Arreaga on 09/08. PT and OT to continue 6. VTE prophylaxis: On enoxaparin 40 mg subcu daily. 7. Advanced care planning: Patient wishes to be DNR Comfort Care arrest with intubation if necessary. Clinical Impression(s) from Imaging Studies Chest X-Ray 09/27/20 10:30 IMPRESSION: Persistent bibasilar infiltrates worse on the left side although there has been moderate clearing as compared to prior study. This is superimposed on emphysematous changes and pulmonary scarring. Chest CTA 09/27/20 10:36 IMPRESSION: No evidence of pulmonary embolism. Improved aeration of both lungs as compared to prior study with residual changes present superimposed on emphysematous changes and bronchiectasis. Microbiology Past 72 Hours 09/27/20 09:40 Blood Culture (Wb) - Anticubital Left Blood Culture - Final No growth in 5 days. 09/27/20 09:40 Blood Culture (Wb) - Right Forearm Blood Culture - Final No growth in 5 days. 09/27/20 12:30 Urine, Clean Catch Urine Culture - Final Culture exhibits no growth. Laboratory Results 10/03/20 05:42: WBC 12.5 H, RBC 3.13 L, Hgb 10.2 L, Hct 31.7 L, MCV 101.3 H, MCH 32.6 H, MCHC 32.2, RDW Std Deviation 52.8 H, RDW Coeff of Linette 14.6, Plt Count 302, MPV 10.8, Immature Gran % (Auto) 1.100 H, Neut % (Auto) 78.6 H, Lymph % (Auto) 10.2 L, Antelope % (Auto) 9.7, Eos % (Auto) 0.3, Baso % (Auto) 0.1, Absolute Neuts (auto) 9.9 H, Absolute Lymphs (auto) 1.28, Nucleated RBC % 0 10/03/20 05:42: Sodium 145, Potassium 3.9, Chloride 109 H, Carbon Dioxide 30.0, Anion Gap 6, BUN 22 H, Creatinine 0.82, Estim Creat Clear Calc 42.90, Est GFR (MDRD) Af Amer 86, Est GFR (MDRD) Non-Af 71, BUN/Creatinine Ratio 26.9 H, Glucose 94, Calcium 8.7, Total Bilirubin 0.50, AST 27, ALT 27, Alkaline Phosphatase 63, Total Protein 6.0 L, Albumin 2.5 L, Globulin 3.5, Albumin/ Globulin Ratio 0.7 L 10/03/20 05:42: D-Dimer Quant (PE/DVT) 1.51 H* Inpatient E&M: 17098 Subs Hosp L2
[2020-10-03] MEDS: Budesonide Respules 0.5 MG/2 ML AMPUL.NEB. INHALATION ×2 (07:43→20:05)
[2020-10-03] MEDS: Ipratropium/Albuterol Sulfate 3 ML AMPUL.NEB INHALATION ×4 (07:43→20:05)
--- NOTE | 2020-10-03 08:21 | PN_ITS ---
Patient Problems: Active and Suspected Problems (Last Reviewed 09/27/20 @ 13:[address] Ean Chirinos, DO) COVID-19 (Acute) Pneumonia (Acute) Subjective: The patient was seen and examined at the bedside this morning. Events from the last 24 hours have been reviewed. The patient is currently afebrile, hemodynamically stable and maintaining appropriate oxygen saturations on BiPAP with an FiO2 requirement of 50%. The patient has completed her treatment course of remdesivir and remains on scheduled bronchodilators and Decadron. Scheduled diuretic therapy was ordered this morning. Recheck of the patient's D-dimer was noted to be 1.5, previously 3.03 on September 27. Objective: The patient's most recent lab work, culture data and imaging studies have all been personally reviewed. Coronavirus PCR was positive on September 27. - Physical Exam Vitals/I&O's: Vital Signs Temp Pulse Resp BP Pulse Ox 98.2 F 81 16 130/87 H 93 10/03/20 03:00 10/03/20 07:44 10/03/20 07:44 10/03/20 03:00 10/03/20 07:44 Oxygen Flow Rate (L/min) 60 Oxygen Delivery Method Bi-pap Weight: 111 lb 5.335 oz Body Mass Index (BMI) 19.7 Intake and Output for Last 24 Hours 10/01/20 10/02/20 10/03/20 23:59 23:59 23:59 Intake Total 350 / 350 Output Total 750 / 750 600 / 800 450 / 450 Balance -400 / -400 -600 / -800 -450 / -450 General: Alert, Cooperative, No apparent distress, - - BiPAP mask in place HEENT: Atraumatic, Normocephalic Oral: Dry Mucosa Neck: Supple, No Nodes, Trachea Midline Lungs: No rhonchi, No wheeze, No rales, Diminished Cardiovascular: Regular rate, Regular Rhythm Abdomen: Bowel Sounds Present, Soft, Non Tender Extremities: No clubbing, No cyanosis, No edema Skin: No breakdown Musculoskeletal: No Tenderness to Palpation of Joints or Extremities Lymphatic: No Cervical, Supraclavicular, or Inguinal Adenopathy Neurological: Cranial nerves II-XII grossly intact, Neuro grossly intact Psych/Mental Status: Normal Affect, Appropriate Labs (Last 48 Hours) 10/03/20 10/03/2021 05:42 05:42 05:42 WBC 12.5 H RBC 3.13 L Hgb 10.2 L Hct 31.7 L MCV 101.3 H MCH 32.6 H MCHC 32.2 RDW Std Deviation 52.8 H RDW Coeff of Linette 14.6 Plt Count 302 MPV 10.8 Immature Gran % (Auto) 1.100 H Neut % (Auto) 78.6 H Lymph % (Auto) 10.2 L [place] % (Auto) 9.7 Eos % (Auto) 0.3 Baso % (Auto) 0.1 Absolute Neuts (auto) 9.9 H Absolute Lymphs (auto) 1.28 Nucleated RBC % 0 D-Dimer Quant (PE/DVT) 1.51 H* Sodium 145 Potassium 3.9 Chloride 109 H Carbon Dioxide 30.0 Anion Gap 6 BUN 22 H Creatinine 0.82 Estim Creat Clear Calc 42.90 Est GFR (MDRD) Af Amer 86 Est GFR (MDRD) Non-Af 71 BUN/Creatinine Ratio 26.9 H Glucose 94 Calcium 8.7 Total Bilirubin 0.50 AST 27 ALT 27 Alkaline Phosphatase 63 Total Protein 6.0 L Albumin 2.5 L Globulin 3.5 Albumin/Globulin Ratio 0.7 L Microbiology 09/27/20 09:40 Blood Culture (Wb) - Anticubital Left Blood Culture - Final No growth in 5 days. 09/27/20 09:40 Blood Culture (Wb) - Right Forearm Blood Culture - Final No growth in 5 days. 09/27/20 12:30 Urine, Clean Catch Urine Culture - Final Culture exhibits no growth. Clinical Impression(s) from Imaging Studies Chest X-Ray 09/27/20 10:30 IMPRESSION: Persistent bibasilar infiltrates worse on the left side although there has been moderate clearing as compared to prior study. This is superimposed on emphysematous changes and pulmonary scarring. Electronically Signed: Shreyas Westbrook MD at 10:52 EST , Service support , Chest CTA 09/27/20 10:36 IMPRESSION: No evidence of pulmonary embolism. Improved aeration of both lungs as compared to prior study with residual changes present superimposed on emphysematous changes and bronchiectasis. Electronically Signed: Shreyas Westbrook MD at 11:13 EST , Service support , Current Medications Acetaminophen (Acetaminophen 500 Mg Tablet) 1,000 mg PO Q8H PRN PRN Reason: Pain 1-10 or Fever Last Admin: 10/03/20 00:53 Dose: 1,000 mg Documented by: Albuterol Sulfate (Albuterol Sulfate 18 Gm Inhaler (200 Puffs)) 2 puff IH Q4H PRN PRN PRN Reason: SHORTNESS OF BREATH Last Admin: 10/01/20 20:44 Dose: 2 puff Documented by: Albuterol/Ipratropium (Ipratropium/Albuterol Sulfate 3 Ml Ampul.Neb) 3 ml INHALATION Q4HWA.RT [facility] Last Admin: 10/03/20 07:43 Dose: 3 ml Documented by: Aspirin (Aspirin 81 Mg Tab.Chew) 81 mg PO DAILY [facility] Last Admin: 10/02/20 09:59 Dose: 81 mg Documented by: Atorvastatin Calcium (Atorvastatin Calcium 40 Mg Tablet) 40 mg PO DAILY@2200 [facility] Last Admin: 10/02/20 20:17 Dose: 40 mg Documented by: Budesonide (Budesonide Respules 0.5 Mg/2 Ml Ampul.Neb.) 0.5 mg INHALATION Q12H.RT [facility] Last Admin: 10/03/20 07:43 Dose: 0.5 mg Documented by: Buspirone HCl (Buspirone 15 Mg Tablet) 15 mg PO DAILY [facility] Last Admin: 10/02/20 09:59 Dose: 15 mg Documented by: Calcium Carbonate (Calcium (Elemental) 500 Mg Tablet) 500 mg PO BID [facility] Last Admin: 10/02/20 20:17 Dose: 500 mg Documented by: Dexamethasone (Dexamethasone 4 Mg Tablet) 6 mg PO DAILY [facility] Stop: 10/05/20 23:59 Last Admin: 10/02/20 09:58 Dose: 6 mg Documented by: Enoxaparin Sodium (Enoxaparin 40 Mg/0.4 Ml Syringe) 40 mg SC DAILY [facility] Last Admin: 10/02/20 09:58 Dose: 40 mg Documented by: Famotidine (Famotidine 20 Mg Tablet) 20 mg PO DAILY [facility] Last Admin: 10/02/20 09:59 Dose: 20 mg Documented by: Fluticasone Propionate (Fluticasone 0.05% 1 [place] Nasal.Sry) 1 spray NASAL BID [facility] Last Admin: 10/02/20 20:17 Dose: 1 spray Documented by: Furosemide (Furosemide 40 Mg/4 Ml Vial) 40 mg IV BID@1000,1800 [facility] Sodium Chloride () 250 mls @ 15 mls/hr IV .[id number] PRN PRN Reason: Saline Flush Last Infusion: 09/29/20 04:54 Dose: 0 mls/hr Documented by: Sodium Chloride () 250 mls @ 15 mls/hr IV .[id number] PRN PRN Reason: Additional IVPB Infusion Isosorbide Mononitrate (Isosorbide Mononitrate 30 Mg Tablet) 30 mg PO DAILY [facility] Last Admin: 10/02/20 09:59 Dose: 30 mg Documented by: Lactobacillus Acidophilus (Lactobacillus Acidophilus) 1 tablet PO DAILY [facility] Last Admin: 10/02/20 09:59 Dose: 1 tablet Documented by: Lorazepam (Lorazepam 0.5 Mg Tablet) 0.5 mg PO Q6H PRN PRN PRN Reason: ANXIETY Last Admin: 10/01/20 20:47 Dose: 0.5 mg Documented by: Magnesium Chloride (Magnesium Chloride 64 Mg Delay Rel.Tablet) 64 mg PO BID [facility] Last Admin: 10/02/20 20:17 Dose: 64 mg Documented by: Miscellaneous Information (Inhaler, Assist Devices 1 Each Spacer) 0 each INHALATION PRN PRN PRN Reason: WITH INHALER Multivitamins (Multivitamins,Therapeutic Tablet) 1 tablet PO DAILY [facility] Last Admin: 10/02/20 09:59 Dose: 1 tablet Documented by: Paroxetine HCl (Paroxetine Cr 12.5 Mg Tablet) 37.5 mg PO DAILY [facility] Last Admin: 10/02/20 09:59 Dose: 37.5 mg Documented by: Polyethylene Glycol (Polyethylene Glycol 3350 17 Gm Packet) 17 gm PO DAILY [facility] Last Admin: 10/02/20 14:28 Dose: 17 gm Documented by: Ramipril (Ramipril 10 Mg Capsule) 10 mg PO DAILY [facility] Last Admin: 10/02/20 09:59 Dose: 10 mg Documented by: Senna/Docusate Sodium (Senna/Docusate Sodium 1 Tablet) 2 tablet PO BID [facility] Stop: 10/04/20 22:01 Last Admin: 10/02/20 20:18 Dose: 2 tablet Documented by: Sodium Chloride (0.9% Saline Lock 10 Ml Syringe) 10 - 40 ml IV UD PRN PRN Reason: SALINE FLUSH Last Admin: 09/28/20 10:03 Dose: 10 ml Documented by: Sodium Chloride (Sodium Chloride 0.65% 1 [place].Btl) 2 spray NASAL BID PRN PRN PRN Reason: NASAL DRYNESS Medical Necessity - Tobacco Use Smoking Status: Former smoker Assessment/Plan All Active Problems (Last Reviewed 09/27/20 @ 13:[address] Ean Chirinos, DO) COVID-19 (Acute) Pneumonia (Acute) Pulmonary edema (Resolved) Pneumonia (Resolved) Physical debility (Acute) Dehydration (Acute) Tachycardia (Acute) RECOMMENDATIONS: 1. Transition from BiPAP to either heated high flow or nasal cannula supplemental O2. Goal to maintain oxygen saturations at or above 90%. 2. Continue Decadron to complete 10-day treatment course. 3. Continue scheduled bronchodilator therapy. Resume triple therapy inhaler regimen at discharge. 4. Encourage incentive spirometer use and mobilize patient as tolerated. 5. Start scheduled diuretic therapy today. IMPRESSIONS: 1. Acute on chronic hypoxemic respiratory failure secondary to COVID-19 pneumonia The patient does have baseline severe COPD based upon pulmonary function studies from March 2020. She has nearly completed her treatment course of remdesivir and remains on Decadron. I would also advise continuing scheduled bronchodilator therapy as ordered. The patient can likely be transition from BiPAP to either heated high flow or nasal cannula supplemental oxygen. Goal to maintain oxygen saturations at or above 90%. Encourage incentive spirometer use and mobilize patient as tolerated. There is no evidence of pulmonary embolism identified on CTA chest. The patient will also be started on scheduled IV diuretic therapy as tolerated by hemodynamics and renal function. Recommend close outpatient follow-up with the patient's primary lecturer of portuguese. 2. Recent hip surgery/advanced age/hypertension/hyperlipidemia/anxiety Complicates care, management, recovery and prognosis. Continue home medications as indicated. This note was generated with [employer] software. It may contain incorrect words, spelling, and punctuation that were not noted in checking the note before signing. Inpatient E&M: 72357 Subs Hosp L3
[2020-10-03] MEDS: Furosemide 40 MG/4 ML Vial IV ×2 (10:05→16:36)
[2020-10-03] MEDS: Isosorbide Mononitrate 30 MG Tablet PO (10:06)
[2020-10-03] MEDS: Aspirin 81 MG TAB.CHEW PO (10:06)
[2020-10-03] MEDS: busPIRone 15 MG TABLET PO (10:06)
[2020-10-03] MEDS: Ramipril 10 MG Capsule PO (10:06)
[2020-10-03] MEDS: Multivitamins,Therapeutic Tablet 1 TABLET PO (10:07)
[2020-10-03] MEDS: Calcium (Elemental) 500 MG Tablet PO ×2 (10:07→20:55)
[2020-10-03] MEDS: Magnesium Chloride 64 MG Delay Rel.Tablet PO ×2 (10:07→20:55)
[2020-10-03] MEDS: Enoxaparin 40 MG/0.4 ML Syringe SC (10:07)
[2020-10-03] MEDS: Senna/Docusate Sodium 1 Tablet 2 TABLET PO ×2 (10:07→20:55)
[2020-10-03] MEDS: PARoxetine CR 12.5 MG Tablet 37.5 MG PO (10:07)
[2020-10-03] MEDS: dexAMETHasone 4 MG Tablet 6 MG PO (10:07)
[2020-10-03] MEDS: Polyethylene Glycol 3350 17 GM PACKET PO (10:08)
[2020-10-03] MEDS: Famotidine 20 MG Tablet PO (10:08)
[2020-10-03] MEDS: Fluticasone 0.05% 1 SPRAY NASAL.SRY NASAL ×2 (10:18→20:54)
[2020-10-03] MEDS: 0.9% Saline Lock 10 ML Syringe IV (16:39)
[2020-10-03] MEDS: Sodium Chloride 0.65% 1 SPRAY SPRAY.BTL 2 SPRAY NASAL (20:53)
[2020-10-03] MEDS: Atorvastatin Calcium 40 MG Tablet PO (20:55)
[2020-10-04] VITALS (19 sets, daily range): BP systolic 92–146; BP diastolic 60–84; PULSE 82–106; RESP 12–26; TEMP 36.1–37.1; O2SAT 91–99
--- NOTE | 2020-10-04 06:40 | PCM.PN.PUL ---
Patient Problems: Active and Suspected Problems (Last Reviewed 09/27/20 @ 13:[address] Ean Chirinos, DO) COVID-19 (Acute) Pneumonia (Acute) Subjective: The patient was seen and examined at the bedside this morning. Events from the last 24 hours have been reviewed. The patient is currently afebrile, hemodynamically stable and maintaining appropriate oxygen saturations on Airvo heated high flow oxygen with an FiO2 requirement of 82%. The patient has completed her treatment course of remdesivir and remains on scheduled bronchodilators, Decadron and scheduled IV Lasix. The patient is currently documented to be overall net +1 L for the hospital admission. Objective: The patient's most recent lab work, culture data and imaging studies have all been personally reviewed. Coronavirus PCR was positive on September 27. - Physical Exam Vitals/I&O's: Vital Signs Temp Pulse Resp BP Pulse Ox 98.8 F 82 16 144/84 H 93 10/04/20 03:00 10/04/20 04:24 10/04/20 04:24 10/04/20 03:00 10/04/20 04:24 Oxygen Flow Rate (L/min) 60 Oxygen Delivery Method Airvo Weight: 111 lb 5.335 oz Body Mass Index (BMI) 19.7 Intake and Output for Last 24 Hours 10/02/20 10/03/20 10/04/20 23:59 23:59 23:59 Intake Total 540 / 780 240 / 240 Output Total 600 / 800 450 / 750 300 / 300 Balance -600 / -800 90 / 30 -60 / -60 General: Alert, Cooperative HEENT: Atraumatic, PERRLA, Normocephalic Oral: No Gingival or Mucosal Lesions/ Ulcerations Neck: Supple, No Nodes, Trachea Midline Lungs: No rhonchi, No wheeze, No rales, Diminished Cardiovascular: Regular rate, Regular Rhythm Abdomen: Bowel Sounds Present, Soft, Non Tender Extremities: No clubbing, No cyanosis, No edema Skin: No breakdown Musculoskeletal: No Tenderness to Palpation of Joints or Extremities Lymphatic: No Cervical, Supraclavicular, or Inguinal Adenopathy Neurological: Cranial nerves II-XII grossly intact, Neuro grossly intact Psych/Mental Status: Normal Affect, Appropriate Labs (Last 48 Hours) 01/28/21 01/28/21 01/28/21 05:42 05:42 05:42 WBC 12.5 H RBC 3.13 L Hgb 10.2 L Hct 31.7 L MCV 101.3 H MCH 32.6 H MCHC 32.2 RDW Std Deviation 52.8 H RDW Coeff of Linette 14.6 Plt Count 302 MPV 10.8 Immature Gran % (Auto) 1.100 H Neut % (Auto) 78.6 H Lymph % (Auto) 10.2 L Cooke % (Auto) 9.7 Eos % (Auto) 0.3 Baso % (Auto) 0.1 Absolute Neuts (auto) 9.9 H Absolute Lymphs (auto) 1.28 Nucleated RBC % 0 D-Dimer Quant (PE/DVT) 1.51 H* Sodium 145 Potassium 3.9 Chloride 109 H Carbon Dioxide 30.0 Anion Gap 6 BUN 22 H Creatinine 0.82 Estim Creat Clear Calc 42.90 Est GFR (MDRD) Af Amer 86 Est GFR (MDRD) Non-Af 71 BUN/Creatinine Ratio 26.9 H Glucose 94 Calcium 8.7 Total Bilirubin 0.50 AST 27 ALT 27 Alkaline Phosphatase 63 Total Protein 6.0 L Albumin 2.5 L Globulin 3.5 Albumin/Globulin Ratio 0.7 L Microbiology 09/27/20 09:40 Blood Culture (Wb) - Anticubital Left Blood Culture - Final No growth in 5 days. 09/27/20 09:40 Blood Culture (Wb) - Right Forearm Blood Culture - Final No growth in 5 days. Clinical Impression(s) from Imaging Studies Chest X-Ray 09/27/20 10:30 IMPRESSION: Persistent bibasilar infiltrates worse on the left side although there has been moderate clearing as compared to prior study. This is superimposed on emphysematous changes and pulmonary scarring. Electronically Signed: Shreyas Westbrook MD at 10:52 EST , Service support , Chest CTA 09/27/20 10:36 IMPRESSION: No evidence of pulmonary embolism. Improved aeration of both lungs as compared to prior study with residual changes present superimposed on emphysematous changes and bronchiectasis. Electronically Signed: Shreyas Westbrook MD at 11:13 EST , Service support , Current Medications Acetaminophen (Acetaminophen 500 Mg Tablet) 1,000 mg PO Q8H PRN PRN Reason: Pain 1-10 or Fever Last Admin: 10/03/20 16:36 Dose: 1,000 mg Documented by: Albuterol Sulfate (Albuterol Sulfate 18 Gm Inhaler (200 Puffs)) 2 puff IH Q4H PRN PRN PRN Reason: SHORTNESS OF BREATH Last Admin: 10/01/20 20:44 Dose: 2 puff Documented by: Albuterol/Ipratropium (Ipratropium/Albuterol Sulfate 3 Ml Ampul.Neb) 3 ml INHALATION Q4HWA.RT [facility] Last Admin: 10/03/20 20:05 Dose: 3 ml Documented by: Aspirin (Aspirin 81 Mg Tab.Chew) 81 mg PO DAILY [facility] Last Admin: 10/03/20 10:06 Dose: 81 mg Documented by: Atorvastatin Calcium (Atorvastatin Calcium 40 Mg Tablet) 40 mg PO DAILY@2200 [facility] Last Admin: 10/03/20 20:55 Dose: 40 mg Documented by: Budesonide (Budesonide Respules 0.5 Mg/2 Ml Ampul.Neb.) 0.5 mg INHALATION Q12H.RT [facility] Last Admin: 10/03/20 20:05 Dose: 0.5 mg Documented by: Buspirone HCl (Buspirone 15 Mg Tablet) 15 mg PO DAILY [facility] Last Admin: 10/03/20 10:06 Dose: 15 mg Documented by: Calcium Carbonate (Calcium (Elemental) 500 Mg Tablet) 500 mg PO BID [facility] Last Admin: 10/03/20 20:55 Dose: 500 mg Documented by: Dexamethasone (Dexamethasone 4 Mg Tablet) 6 mg PO DAILY [facility] Stop: 10/05/20 23:59 Last Admin: 10/03/20 10:07 Dose: 6 mg Documented by: Enoxaparin Sodium (Enoxaparin 40 Mg/0.4 Ml Syringe) 40 mg SC DAILY [facility] Last Admin: 10/03/20 10:07 Dose: 40 mg Documented by: Famotidine (Famotidine 20 Mg Tablet) 20 mg PO DAILY [facility] Last Admin: 10/03/20 10:08 Dose: 20 mg Documented by: Fluticasone Propionate (Fluticasone 0.05% 1 [place] Nasal.Sry) 1 spray NASAL BID [facility] Last Admin: 10/03/20 20:54 Dose: 1 spray Documented by: Furosemide (Furosemide 40 Mg/4 Ml Vial) 40 mg IV BID@1000,1800 [facility] Last Admin: 10/03/20 16:36 Dose: 40 mg Documented by: Sodium Chloride () 250 mls @ 15 mls/hr IV .[id number] PRN PRN Reason: Saline Flush Last Infusion: 09/29/20 04:54 Dose: 0 mls/hr Documented by: Sodium Chloride () 250 mls @ 15 mls/hr IV .[id number] PRN PRN Reason: Additional IVPB Infusion Isosorbide Mononitrate (Isosorbide Mononitrate 30 Mg Tablet) 30 mg PO DAILY [facility] Last Admin: 10/03/20 10:06 Dose: 30 mg Documented by: Lactobacillus Acidophilus (Lactobacillus Acidophilus) 1 tablet PO DAILY [facility] Last Admin: 10/03/20 10:06 Dose: 1 tablet Documented by: Lorazepam (Lorazepam 0.5 Mg Tablet) 0.5 mg PO Q6H PRN PRN PRN Reason: ANXIETY Last Admin: 10/01/20 20:47 Dose: 0.5 mg Documented by: Magnesium Chloride (Magnesium Chloride 64 Mg Delay Rel.Tablet) 64 mg PO BID [facility] Last Admin: 10/03/20 20:55 Dose: 64 mg Documented by: Miscellaneous Information (Inhaler, Assist Devices 1 Each Spacer) 0 each INHALATION PRN PRN PRN Reason: WITH INHALER Multivitamins (Multivitamins,Therapeutic Tablet) 1 tablet PO DAILY [facility] Last Admin: 10/03/20 10:07 Dose: 1 tablet Documented by: Paroxetine HCl (Paroxetine Cr 12.5 Mg Tablet) 37.5 mg PO DAILY [facility] Last Admin: 10/03/20 10:07 Dose: 37.5 mg Documented by: Polyethylene Glycol (Polyethylene Glycol 3350 17 Gm Packet) 17 gm PO DAILY [facility] Last Admin: 10/03/20 10:08 Dose: 17 gm Documented by: Ramipril (Ramipril 10 Mg Capsule) 10 mg PO DAILY [facility] Last Admin: 10/03/20 10:06 Dose: 10 mg Documented by: Senna/Docusate Sodium (Senna/Docusate Sodium 1 Tablet) 2 tablet PO BID [facility] Stop: 10/04/20 22:01 Last Admin: 10/03/20 20:55 Dose: 2 tablet Documented by: Sodium Chloride (0.9% Saline Lock 10 Ml Syringe) 10 - 40 ml IV UD PRN PRN Reason: SALINE FLUSH Last Admin: 10/03/20 16:39 Dose: 20 ml Documented by: Sodium Chloride (Sodium Chloride 0.65% 1 [place].Btl) 2 spray NASAL BID PRN PRN PRN Reason: NASAL DRYNESS Last Admin: 10/03/20 20:53 Dose: 2 spray Documented by: Medical Necessity - Tobacco Use Smoking Status: Former smoker Assessment/Plan All Active Problems (Last Reviewed 09/27/20 @ 13:[address] Ean Chirinos, DO) COVID-19 (Acute) Pneumonia (Acute) Pulmonary edema (Resolved) Pneumonia (Resolved) Physical debility (Acute) Dehydration (Acute) Tachycardia (Acute) RECOMMENDATIONS: 1. Continue heated high flow oxygen and wean FiO2 to maintain saturations at or above 90%. 2. Continue Decadron to complete 10-day treatment course. 3. Continue scheduled bronchodilator therapy. Resume triple therapy inhaler regimen at discharge. 4. Encourage incentive spirometer use and mobilize patient as tolerated. 5. Continue diuretic regimen as tolerated by hemodynamics and renal function. Recheck BMP in the morning. IMPRESSIONS: 1. Acute on chronic hypoxemic respiratory failure secondary to COVID-19 pneumonia The patient does have baseline severe COPD based upon pulmonary function studies from March 2020. She has completed her treatment course of remdesivir and remains on Decadron. I would also advise continuing scheduled bronchodilator therapy as ordered. The patient will be continued on Airvo heated high flow oxygen with plans to wean FiO2 to maintain saturations at or above 90%. Encourage incentive spirometer use and mobilize patient as tolerated. There is no evidence of pulmonary embolism identified on CTA chest. The patient will also be continued on scheduled IV diuretic therapy as tolerated by hemodynamics and renal function. 2. Recent hip surgery/advanced age/hypertension/hyperlipidemia/anxiety Complicates care, management, recovery and prognosis. Continue home medications as indicated. This note was generated with [employer]ation software. It may contain incorrect words, spelling, and punctuation that were not noted in checking the note before signing. Inpatient E&M: 25390 [facility] L3
[2020-10-04] MEDS: Budesonide Respules 0.5 MG/2 ML AMPUL.NEB. INHALATION ×2 (07:00→18:51)
[2020-10-04] MEDS: Ipratropium/Albuterol Sulfate 3 ML AMPUL.NEB INHALATION ×4 (07:00→18:51)
[2020-10-04] MEDS: Enoxaparin 40 MG/0.4 ML Syringe SC (09:08)
[2020-10-04] MEDS: Aspirin 81 MG TAB.CHEW PO (09:09)
[2020-10-04] MEDS: Ramipril 10 MG Capsule PO (09:09)
[2020-10-04] MEDS: busPIRone 15 MG TABLET PO (09:09)
[2020-10-04] MEDS: Famotidine 20 MG Tablet PO (09:09)
[2020-10-04] MEDS: Calcium (Elemental) 500 MG Tablet PO ×2 (09:10→20:55)
[2020-10-04] MEDS: Magnesium Chloride 64 MG Delay Rel.Tablet PO ×2 (09:10→20:55)
[2020-10-04] MEDS: Multivitamins,Therapeutic Tablet 1 TABLET PO (09:10)
[2020-10-04] MEDS: Senna/Docusate Sodium 1 Tablet 2 TABLET PO ×2 (09:10→20:55)
[2020-10-04] MEDS: Isosorbide Mononitrate 30 MG Tablet PO (09:10)
[2020-10-04] MEDS: dexAMETHasone 4 MG Tablet 6 MG PO (09:11)
[2020-10-04] MEDS: PARoxetine CR 12.5 MG Tablet 37.5 MG PO (09:11)
[2020-10-04] MEDS: Polyethylene Glycol 3350 17 GM PACKET PO (09:12)
[2020-10-04] MEDS: Furosemide 40 MG/4 ML Vial IV ×2 (09:13→17:25)
[2020-10-04] MEDS: Fluticasone 0.05% 1 SPRAY NASAL.SRY NASAL ×2 (09:13→20:54)
--- NOTE | 2020-10-04 13:37 | PN_ITS ---
Patient Problems: Active and Suspected Problems (Last Reviewed 09/27/20 @ 13:[address] Ean Chirinos, DO) COVID-19 (Acute) Pneumonia (Acute) Reason for Visit: Follow-up for acute hypoxic respiratory failure secondary to pneumonia with chronic lung disease Objective: No fever or chills. Patient is still mild short of breath at rest and dyspnea on exertion. On 80% FiO2 high flow humidified oxygen. Pulse ox 93% Physical exam general: Alert, Oriented x3, Cooperative HEENT: Atraumatic, PERRLA, EOMI, Normocephalic Oral: No Gingival or Mucosal Lesions/ Ulcerations Neck: Supple, No JVD, Negative Carotid Bruits Lungs: Air entry diminished in bilateral lung bases. Mild expiratory rhonchi. Cardiovascular: Regular rate, Regular Rhythm, Normal S1, Normal S2, No murmurs Abdomen: Bowel Sounds Present, Soft, Non Tender, Non-Distended : No renal angle tenderness. No suprapubic tenderness. Extremities: No edema, Capillary Refill Less than 3 Seconds Skin: No rashes, No breakdown Musculoskeletal: No Tenderness to Palpation of Joints or Extremities. Low body mass. Neurological: Cranial nerves II-XII grossly intact, Deep Tendon Reflexes 2+/4 and Symmetrical, Neuro grossly intact Psych/Mental Status: Normal Affect, Appropriate. Vitals/I&O's: Vital Signs Temp Pulse Resp BP Pulse Ox 97.0 F L 93 19 H 146/70 H 95 10/04/20 09:00 10/04/20 09:00 10/04/20 09:00 10/04/20 09:00 10/04/20 09:00 Oxygen Flow Rate (L/min) 60 Oxygen Delivery Method Airvo Weight: 111 lb 5.335 oz Body Mass Index (BMI) 19.7 Intake and Output for Last 24 Hours 10/02/20 10/03/20 10/04/20 23:59 23:59 23:59 Intake Total 540 / 780 840 / 840 Output Total 600 / 800 450 / 750 1175 / 1175 Balance -600 / -800 90 / 30 -335 / -335 Microbiology Past 72 Hours 09/27/20 09:40 Blood Culture (Wb) - Anticubital Left Blood Culture - Final No growth in 5 days. 09/27/20 09:40 Blood Culture (Wb) - Right Forearm Blood Culture - Final No growth in 5 days. Current Medications Acetaminophen (Acetaminophen 500 Mg Tablet) 1,000 mg PO Q8H PRN PRN Reason: Pain 1-10 or Fever Last Admin: 10/03/20 16:36 Dose: 1,000 mg Documented by: Albuterol Sulfate (Albuterol Sulfate 18 Gm Inhaler (200 Puffs)) 2 puff IH Q4H PRN PRN PRN Reason: SHORTNESS OF BREATH Last Admin: 10/01/20 20:44 Dose: 2 puff Documented by: Albuterol/Ipratropium (Ipratropium/Albuterol Sulfate 3 Ml Ampul.Neb) 3 ml INHALATION Q4HWA.RT [facility] Last Admin: 10/04/20 11:42 Dose: 3 ml Documented by: Aspirin (Aspirin 81 Mg Tab.Chew) 81 mg PO DAILY [facility] Last Admin: 10/04/20 09:09 Dose: 81 mg Documented by: Atorvastatin Calcium (Atorvastatin Calcium 40 Mg Tablet) 40 mg PO DAILY@2200 [facility] Last Admin: 10/03/20 20:55 Dose: 40 mg Documented by: Budesonide (Budesonide Respules 0.5 Mg/2 Ml Ampul.Neb.) 0.5 mg INHALATION Q12H.RT [facility] Last Admin: 10/04/20 07:00 Dose: 0.5 mg Documented by: Buspirone HCl (Buspirone 15 Mg Tablet) 15 mg PO DAILY [facility] Last Admin: 10/04/20 09:09 Dose: 15 mg Documented by: Calcium Carbonate (Calcium (Elemental) 500 Mg Tablet) 500 mg PO BID [facility] Last Admin: 10/04/20 09:10 Dose: 500 mg Documented by: Dexamethasone (Dexamethasone 4 Mg Tablet) 6 mg PO DAILY [facility] Stop: 10/05/20 23:59 Last Admin: 10/04/20 09:11 Dose: 6 mg Documented by: Enoxaparin Sodium (Enoxaparin 40 Mg/0.4 Ml Syringe) 40 mg SC DAILY [facility] Last Admin: 10/04/20 09:08 Dose: 40 mg Documented by: Famotidine (Famotidine 20 Mg Tablet) 20 mg PO DAILY [facility] Last Admin: 10/04/20 09:09 Dose: 20 mg Documented by: Fluticasone Propionate (Fluticasone 0.05% 1 [place] Nasal.Sry) 1 spray NASAL BID [facility] Last Admin: 10/04/20 09:13 Dose: 1 spray Documented by: Furosemide (Furosemide 40 Mg/4 Ml Vial) 40 mg IV BID@1000,1800 [facility] Last Admin: 10/04/20 09:13 Dose: 40 mg Documented by: Sodium Chloride () 250 mls @ 15 mls/hr IV .[id number] PRN PRN Reason: Saline Flush Last Infusion: 09/29/20 04:54 Dose: 0 mls/hr Documented by: Sodium Chloride () 250 mls @ 15 mls/hr IV .[id number] PRN PRN Reason: Additional IVPB Infusion Isosorbide Mononitrate (Isosorbide Mononitrate 30 Mg Tablet) 30 mg PO DAILY [facility] Last Admin: 10/04/20 09:10 Dose: 30 mg Documented by: Lactobacillus Acidophilus (Lactobacillus Acidophilus) 1 tablet PO DAILY [facility] Last Admin: 10/04/20 09:09 Dose: 1 tablet Documented by: Lorazepam (Lorazepam 0.5 Mg Tablet) 0.5 mg PO Q6H PRN PRN PRN Reason: ANXIETY Last Admin: 10/01/20 20:47 Dose: 0.5 mg Documented by: Magnesium Chloride (Magnesium Chloride 64 Mg Delay Rel.Tablet) 64 mg PO BID [facility] Last Admin: 10/04/20 09:10 Dose: 64 mg Documented by: Miscellaneous Information (Inhaler, Assist Devices 1 Each Spacer) 0 each INHALATION PRN PRN PRN Reason: WITH INHALER Multivitamins (Multivitamins,Therapeutic Tablet) 1 tablet PO DAILY [facility] Last Admin: 10/04/20 09:10 Dose: 1 tablet Documented by: Paroxetine HCl (Paroxetine Cr 12.5 Mg Tablet) 37.5 mg PO DAILY [facility] Last Admin: 10/04/20 09:11 Dose: 37.5 mg Documented by: Polyethylene Glycol (Polyethylene Glycol 3350 17 Gm Packet) 17 gm PO DAILY [facility] Last Admin: 10/04/20 09:12 Dose: 17 gm Documented by: Ramipril (Ramipril 10 Mg Capsule) 10 mg PO DAILY [facility] Last Admin: 10/04/20 09:09 Dose: 10 mg Documented by: Senna/Docusate Sodium (Senna/Docusate Sodium 1 Tablet) 2 tablet PO BID [facility] Stop: 10/04/20 22:01 Last Admin: 10/04/20 09:10 Dose: 2 tablet Documented by: Sodium Chloride (0.9% Saline Lock 10 Ml Syringe) 10 - 40 ml IV UD PRN PRN Reason: SALINE FLUSH Last Admin: 10/03/20 16:39 Dose: 20 ml Documented by: Sodium Chloride (Sodium Chloride 0.65% 1 [place].Btl) 2 spray NASAL BID PRN PRN PRN Reason: NASAL DRYNESS Last Admin: 10/03/20 20:53 Dose: 2 spray Documented by: Medical Necessity - Tobacco Use Smoking Status: Former smoker Assessment/Plan All Active Problems (Last Reviewed 09/27/20 @ 13:[address] Ean Chirinos, DO) COVID-19 (Acute) Pneumonia (Acute) Pulmonary edema (Resolved) Pneumonia (Resolved) Physical debility (Acute) Dehydration (Acute) Tachycardia (Acute) This 79-year-old female with history of COPD on 3 L of home oxygen was admitted with fever 102 Fahrenheit, hypoxia, dizziness on 09/26 after she had COVID-19 vaccination. Patient had Levaquin in ED. 1. Acute COVID 19 pneumonia: Chest CT scan showed no evidence of PE but emphysematous changes the right upper lobe and bronchiectasis in both lower lobes, worse on RLL and new focal infiltrate in RLL. Patient had first COVID-19 vaccination on 09/26 and developed fever. COVID-19 rapid antigen is positive and patient has fever, lymphopenia and elevated D-dimer. On dexamethasone and remdesivir, through 10/01. On broad-spectrum antibiotic with suspicion of HCAP as patient was hospitalized last 3 months. ID has been consulted. On IV Zosyn. Urinary antigens are negative. Blood cultures x2 are negative for more than 48 hours. 10/01: Urine culture shows no growth. Seen by contracts representative. No fever in last 72 hours. Still requires high FiO2. Mild leukocytosis. Inflammatory markers BNP and D-dimer are elevated. Procalcitonin 0.1. 10/02: Work-up for bacterial infection is negative therefore Zosyn was discontinued yesterday. 10/03: Patient is still dyspnea at rest and hypoxic and on Bipap 10/04: On high flow oxygen alternating with BiPAP at night/nap. Patient completed remdesivir on 10/01. On Decadron scheduled bronchodilator. Incentive spirometry. Pulmonary consult reviewed. 2. Dizziness: Probably due to BPPV, vertigo: Resolved. 3. Acute on chronic hypoxic respiratory failure due to COPD and bronchiectasis as mentioned above. Patient follows Dr. Joy. As mentioned above patient on BiPAP. Log Carrier Operator consulted. 10/02: Patient is still on BiPAP high flow oxygen. Complains of secretions on BiPAP. 4. Gram negative pneumonia ruled out 5. Recent right hip femoral neck fracture: Patient had recent right total hip replacement by Dr. Arreaga on 09/08. PT and OT to continue 6. VTE prophylaxis: On enoxaparin 40 mg subcu daily. 7. Advanced care planning: Patient wishes to be DNR Comfort Care arrest with intubation if necessary. Clinical Impression(s) from Imaging Studies Chest X-Ray 09/27/20 10:30 IMPRESSION: Persistent bibasilar infiltrates worse on the left side although there has been moderate clearing as compared to prior study. This is superimposed on emphysematous changes and pulmonary scarring. Chest CTA 09/27/20 10:36 IMPRESSION: No evidence of pulmonary embolism. Improved aeration of both lungs as compared to prior study with residual changes present superimposed on emphysematous changes and bronchiectasis. Microbiology Past 72 Hours 09/27/20 09:40 Blood Culture (Wb) - Anticubital Left Blood Culture - Final No growth in 5 days. 09/27/20 09:40 Blood Culture (Wb) - Right Forearm Blood Culture - Final No growth in 5 days. Inpatient E&M: 62354 [facility] L2
--- NOTE | 2020-10-04 15:56 | PCM.PN.ID ---
Patient Problems: Active and Suspected Problems (Last Reviewed 09/27/20 @ 13:[address] Ean Chirinos, DO) COVID-19 (Acute) Pneumonia (Acute) Subjective: Feeling better, breathing improved, no n/v/d - Physical Exam Vitals/I&O's: Vital Signs Temp Pulse Resp BP Pulse Ox 97.0 F L 106 H 18 146/70 H 93 10/04/20 09:00 10/04/20 11:45 10/04/20 11:45 10/04/20 09:00 10/04/20 15:38 Oxygen Flow Rate (L/min) 60 Oxygen Delivery Method Airvo Weight: 50.5 kg Body Mass Index (BMI) 19.7 Intake and Output for Last 24 Hours 10/02/20 10/03/20 10/04/20 23:59 23:59 23:59 Intake Total 540 / 780 840 / 840 Output Total 600 / 800 450 / 750 1175 / 1175 Balance -600 / -800 90 / 30 -335 / -335 General: Alert, Cooperative, No apparent distress Lungs: Diminished Cardiovascular: Regular rate, Regular Rhythm Abdomen: Soft, Non Tender, Non-Distended Skin: No rashes Microbiology Past 72 Hours 09/27/20 09:40 Blood Culture (Wb) - Anticubital Left Blood Culture - Final No growth in 5 days. 09/27/20 09:40 Blood Culture (Wb) - Right Forearm Blood Culture - Final No growth in 5 days. Current Medications Acetaminophen (Acetaminophen 500 Mg Tablet) 1,000 mg PO Q8H PRN PRN Reason: Pain 1-10 or Fever Last Admin: 10/03/20 16:36 Dose: 1,000 mg Documented by: Albuterol Sulfate (Albuterol Sulfate 18 Gm Inhaler (200 Puffs)) 2 puff IH Q4H PRN PRN PRN Reason: SHORTNESS OF BREATH Last Admin: 10/01/20 20:44 Dose: 2 puff Documented by: Albuterol/Ipratropium (Ipratropium/Albuterol Sulfate 3 Ml Ampul.Neb) 3 ml INHALATION Q4HWA.RT HAN Last Admin: 10/04/20 15:35 Dose: 3 ml Documented by: Aspirin (Aspirin 81 Mg Tab.Chew) 81 mg PO DAILY HAN Last Admin: 10/04/20 09:09 Dose: 81 mg Documented by: Atorvastatin Calcium (Atorvastatin Calcium 40 Mg Tablet) 40 mg PO DAILY@2200 [facility] Last Admin: 10/03/20 20:55 Dose: 40 mg Documented by: Budesonide (Budesonide Respules 0.5 Mg/2 Ml Ampul.Neb.) 0.5 mg INHALATION Q12H.RT [facility] Last Admin: 10/04/20 07:00 Dose: 0.5 mg Documented by: Buspirone HCl (Buspirone 15 Mg Tablet) 15 mg PO DAILY [facility] Last Admin: 10/04/20 09:09 Dose: 15 mg Documented by: Calcium Carbonate (Calcium (Elemental) 500 Mg Tablet) 500 mg PO BID [facility] Last Admin: 10/04/20 09:10 Dose: 500 mg Documented by: Dexamethasone (Dexamethasone 4 Mg Tablet) 6 mg PO DAILY [facility] Stop: 10/05/20 23:59 Last Admin: 10/04/20 09:11 Dose: 6 mg Documented by: Enoxaparin Sodium (Enoxaparin 40 Mg/0.4 Ml Syringe) 40 mg SC DAILY [facility] Last Admin: 10/04/20 09:08 Dose: 40 mg Documented by: Famotidine (Famotidine 20 Mg Tablet) 20 mg PO DAILY [facility] Last Admin: 10/04/20 09:09 Dose: 20 mg Documented by: Fluticasone Propionate (Fluticasone 0.05% 1 [place] Nasal.Sry) 1 spray NASAL BID [facility] Last Admin: 10/04/20 09:13 Dose: 1 spray Documented by: Furosemide (Furosemide 40 Mg/4 Ml Vial) 40 mg IV BID@1000,1800 [facility] Last Admin: 10/04/20 09:13 Dose: 40 mg Documented by: Sodium Chloride () 250 mls @ 15 mls/hr IV .[id number] PRN PRN Reason: Saline Flush Last Infusion: 09/29/20 04:54 Dose: 0 mls/hr Documented by: Sodium Chloride () 250 mls @ 15 mls/hr IV .[id number] PRN PRN Reason: Additional IVPB Infusion Isosorbide Mononitrate (Isosorbide Mononitrate 30 Mg Tablet) 30 mg PO DAILY [facility] Last Admin: 10/04/20 09:10 Dose: 30 mg Documented by: Lactobacillus Acidophilus (Lactobacillus Acidophilus) 1 tablet PO DAILY [facility] Last Admin: 10/04/20 09:09 Dose: 1 tablet Documented by: Lorazepam (Lorazepam 0.5 Mg Tablet) 0.5 mg PO Q6H PRN PRN PRN Reason: ANXIETY Last Admin: 10/01/20 20:47 Dose: 0.5 mg Documented by: Magnesium Chloride (Magnesium Chloride 64 Mg Delay Rel.Tablet) 64 mg PO BID [facility] Last Admin: 10/04/20 09:10 Dose: 64 mg Documented by: Miscellaneous Information (Inhaler, Assist Devices 1 Each Spacer) 0 each INHALATION PRN PRN PRN Reason: WITH INHALER Multivitamins (Multivitamins,Therapeutic Tablet) 1 tablet PO DAILY [facility] Last Admin: 10/04/20 09:10 Dose: 1 tablet Documented by: Paroxetine HCl (Paroxetine Cr 12.5 Mg Tablet) 37.5 mg PO DAILY [facility] Last Admin: 10/04/20 09:11 Dose: 37.5 mg Documented by: Polyethylene Glycol (Polyethylene Glycol 3350 17 Gm Packet) 17 gm PO DAILY [facility] Last Admin: 10/04/20 09:12 Dose: 17 gm Documented by: Ramipril (Ramipril 10 Mg Capsule) 10 mg PO DAILY [facility] Last Admin: 10/04/20 09:09 Dose: 10 mg Documented by: Senna/Docusate Sodium (Senna/Docusate Sodium 1 Tablet) 2 tablet PO BID [facility] Stop: 10/04/20 22:01 Last Admin: 10/04/20 09:10 Dose: 2 tablet Documented by: Sodium Chloride (0.9% Saline Lock 10 Ml Syringe) 10 - 40 ml IV UD PRN PRN Reason: SALINE FLUSH Last Admin: 10/03/20 16:39 Dose: 20 ml Documented by: Sodium Chloride (Sodium Chloride 0.65% 1 [place].Btl) 2 spray NASAL BID PRN PRN PRN Reason: NASAL DRYNESS Last Admin: 10/03/20 20:53 Dose: 2 spray Documented by: Medical Necessity - Tobacco Use Smoking Status: Former smoker Route of nutrition/ use of supplements: [] Nutritional Intake: [] IV Site: [] Cardona Catheter: [] - Assessment/Plan Antibiotics: [] Assessment/Plan: [] Active and Suspected Problems (Last Reviewed 09/27/20 @ 13:[address] Ean Chirinos, DO) COVID-19 (Acute) Pneumonia (Acute) covid with hypoxia, underlying copd on 3L home o2 - sx started around 09/26. She was started on remdesivir on 09/27. Off vanc/zosyn. O2 reqs remain high. Plan on 20 days of quarantine from 09/26, 10 days of dex total. D-dimer was 3. On lovenox 40mg daily. With high d-dimer, may benefit from 2 weeks of low dose factor xa inhibitor at discharge. Will follow
[2020-10-04] MEDS: 0.9% Saline Lock 10 ML Syringe IV (20:55)
[2020-10-04] MEDS: Atorvastatin Calcium 40 MG Tablet PO (20:55)
[2020-10-05] VITALS (24 sets, daily range): BP systolic 101–138; BP diastolic 48–75; PULSE 82–105; RESP 10–23; TEMP 36.2–37.2; O2SAT 85–99
--- NOTE | 2020-10-05 05:59 | PN_ITS ---
Patient Problems: Active and Suspected Problems (Last Reviewed 09/27/20 @ 13:[address] Ean Chirinos, DO) COVID-19 (Acute) Pneumonia (Acute) Subjective: The patient was seen and examined at the bedside this morning. Events from the last 24 hours have been reviewed. The patient is currently afebrile, hemodynamically stable and maintaining appropriate oxygen saturations on Airvo heated high flow with an FiO2 requirement of 67% and flow rate of 60 L/min. The patient did tolerate BiPAP overnight. The patient has completed her treatment course of remdesivir and remains on scheduled bronchodilators, Decadron and scheduled IV Lasix. Objective: The patient's most recent lab work, culture data and imaging studies have all been personally reviewed. Coronavirus PCR was positive on September 27. - Physical Exam Vitals/I&O's: Vital Signs Temp Pulse Resp BP Pulse Ox 99 F 96 20 H 138/75 H 96 10/05/20 03:59 10/05/20 05:09 10/05/20 05:09 10/05/20 03:59 10/05/20 05:09 Oxygen Flow Rate (L/min) 60 Oxygen Delivery Method Bi-pap Weight: 111 lb 5.335 oz Body Mass Index (BMI) 19.7 Intake and Output for Last 24 Hours 10/03/20 10/04/20 10/05/20 23:59 23:59 23:59 Intake Total 540 / 780 1290 / 1440 150 / 150 Output Total 450 / 750 2175 / 2175 Balance 90 / 30 -885 / -735 150 / 150 General: Alert, Cooperative, No apparent distress HEENT: Atraumatic, Normocephalic Oral: No Gingival or Mucosal Lesions/ Ulcerations Neck: Supple, No Nodes, Trachea Midline Lungs: - - Globally diminished air movement bilaterally. Cardiovascular: Regular rate, Regular Rhythm Abdomen: Bowel Sounds Present, Soft, Non Tender Extremities: No clubbing, No cyanosis, No edema Skin: No breakdown Musculoskeletal: No Tenderness to Palpation of Joints or Extremities Lymphatic: No Cervical, Supraclavicular, or Inguinal Adenopathy Neurological: Cranial nerves II-XII grossly intact, Neuro grossly intact Psych/Mental Status: Normal Affect Labs (Last 48 Hours) 10/03/20 10/03/20 05:42 05:42 D-Dimer Quant (PE/DVT) 1.51 H* Sodium 145 Potassium 3.9 Chloride 109 H Carbon Dioxide 30.0 Anion Gap 6 BUN 22 H Creatinine 0.82 Estim Creat Clear Calc 42.90 Est GFR (MDRD) Af Amer 86 Est GFR (MDRD) Non-Af 71 BUN/Creatinine Ratio 26.9 H Glucose 94 Calcium 8.7 Total Bilirubin 0.50 AST 27 ALT 27 Alkaline Phosphatase 63 Total Protein 6.0 L Albumin 2.5 L Globulin 3.5 Albumin/Globulin Ratio 0.7 L Clinical Impression(s) from Imaging Studies Chest X-Ray 09/27/20 10:30 IMPRESSION: Persistent bibasilar infiltrates worse on the left side although there has been moderate clearing as compared to prior study. This is superimposed on emphysematous changes and pulmonary scarring. Electronically Signed: Shreyas Westbrook MD at 10:52 EST , Service support , Chest CTA 09/27/20 10:36 IMPRESSION: No evidence of pulmonary embolism. Improved aeration of both lungs as compared to prior study with residual changes present superimposed on emphysematous changes and bronchiectasis. Electronically Signed: Shreyas Westbrook MD at 11:13 EST , Service support , Current Medications Acetaminophen (Acetaminophen 500 Mg Tablet) 1,000 mg PO Q8H PRN PRN Reason: Pain 1-10 or Fever Last Admin: 10/03/20 16:36 Dose: 1,000 mg Documented by: Albuterol Sulfate (Albuterol Sulfate 18 Gm Inhaler (200 Puffs)) 2 puff IH Q4H PRN PRN PRN Reason: SHORTNESS OF BREATH Last Admin: 10/01/20 20:44 Dose: 2 puff Documented by: Albuterol/Ipratropium (Ipratropium/Albuterol Sulfate 3 Ml Ampul.Neb) 3 ml INHALATION Q4HWA.RT HAN Last Admin: 10/04/20 18:51 Dose: 3 ml Documented by: Aspirin (Aspirin 81 Mg Tab.Chew) 81 mg PO DAILY HAN Last Admin: 10/04/20 09:09 Dose: 81 mg Documented by: Atorvastatin Calcium (Atorvastatin Calcium 40 Mg Tablet) 40 mg PO DAILY@2200 [facility] Last Admin: 10/04/20 20:55 Dose: 40 mg Documented by: Budesonide (Budesonide Respules 0.5 Mg/2 Ml Ampul.Neb.) 0.5 mg INHALATION Q12H.RT [facility] Last Admin: 10/04/20 18:51 Dose: 0.5 mg Documented by: Buspirone HCl (Buspirone 15 Mg Tablet) 15 mg PO DAILY [facility] Last Admin: 10/04/20 09:09 Dose: 15 mg Documented by: Calcium Carbonate (Calcium (Elemental) 500 Mg Tablet) 500 mg PO BID [facility] Last Admin: 10/04/20 20:55 Dose: 500 mg Documented by: Dexamethasone (Dexamethasone 4 Mg Tablet) 6 mg PO DAILY [facility] Stop: 10/05/20 23:59 Last Admin: 10/04/20 09:11 Dose: 6 mg Documented by: Enoxaparin Sodium (Enoxaparin 40 Mg/0.4 Ml Syringe) 40 mg SC DAILY [facility] Last Admin: 10/04/20 09:08 Dose: 40 mg Documented by: Famotidine (Famotidine 20 Mg Tablet) 20 mg PO DAILY [facility] Last Admin: 10/04/20 09:09 Dose: 20 mg Documented by: Fluticasone Propionate (Fluticasone 0.05% 1 [place] Nasal.Sry) 1 spray NASAL BID [facility] Last Admin: 10/04/20 20:54 Dose: 1 spray Documented by: Furosemide (Furosemide 40 Mg/4 Ml Vial) 40 mg IV BID@1000,1800 [facility] Last Admin: 10/04/20 17:25 Dose: 40 mg Documented by: Sodium Chloride () 250 mls @ 15 mls/hr IV .[id number] PRN PRN Reason: Saline Flush Last Infusion: 09/29/20 04:54 Dose: 0 mls/hr Documented by: Sodium Chloride () 250 mls @ 15 mls/hr IV .[id number] PRN PRN Reason: Additional IVPB Infusion Isosorbide Mononitrate (Isosorbide Mononitrate 30 Mg Tablet) 30 mg PO DAILY [facility] Last Admin: 10/04/20 09:10 Dose: 30 mg Documented by: Lactobacillus Acidophilus (Lactobacillus Acidophilus) 1 tablet PO DAILY [facility] Last Admin: 10/04/20 09:09 Dose: 1 tablet Documented by: Lorazepam (Lorazepam 0.5 Mg Tablet) 0.5 mg PO Q6H PRN PRN PRN Reason: ANXIETY Last Admin: 10/01/20 20:47 Dose: 0.5 mg Documented by: Magnesium Chloride (Magnesium Chloride 64 Mg Delay Rel.Tablet) 64 mg PO BID [facility] Last Admin: 10/04/20 20:55 Dose: 64 mg Documented by: Miscellaneous Information (Inhaler, Assist Devices 1 Each Spacer) 0 each INHALATION PRN PRN PRN Reason: WITH INHALER Multivitamins (Multivitamins,Therapeutic Tablet) 1 tablet PO DAILY [facility] Last Admin: 10/04/20 09:10 Dose: 1 tablet Documented by: Paroxetine HCl (Paroxetine Cr 12.5 Mg Tablet) 37.5 mg PO DAILY [facility] Last Admin: 10/04/20 09:11 Dose: 37.5 mg Documented by: Polyethylene Glycol (Polyethylene Glycol 3350 17 Gm Packet) 17 gm PO DAILY [facility] Last Admin: 10/04/20 09:12 Dose: 17 gm Documented by: Ramipril (Ramipril 10 Mg Capsule) 10 mg PO DAILY [facility] Last Admin: 10/04/20 09:09 Dose: 10 mg Documented by: Sodium Chloride (0.9% Saline Lock 10 Ml Syringe) 10 - 40 ml IV UD PRN PRN Reason: SALINE FLUSH Last Admin: 10/04/20 20:55 Dose: 10 ml Documented by: Sodium Chloride (Sodium Chloride 0.65% 1 [place] Douglas.Btl) 2 spray NASAL BID PRN PRN PRN Reason: NASAL DRYNESS Last Admin: 10/03/20 20:53 Dose: 2 spray Documented by: Medical Necessity - Tobacco Use Smoking Status: Former smoker Assessment/Plan All Active Problems (Last Reviewed 09/27/20 @ 13:[address] aEn Chirinos, DO) COVID-19 (Acute) Pneumonia (Acute) Pulmonary edema (Resolved) Pneumonia (Resolved) Physical debility (Acute) Dehydration (Acute) Tachycardia (Acute) RECOMMENDATIONS: 1. Continue heated high flow oxygen and wean FiO2 to maintain saturations at or above 90%. 2. Continue Decadron to complete 10-day treatment course. 3. Continue scheduled bronchodilator therapy. Resume triple therapy inhaler regimen at discharge. 4. Encourage incentive spirometer use and mobilize patient as tolerated. 5. Continue diuretic regimen as tolerated by hemodynamics and renal function. IMPRESSIONS: 1. Acute on chronic hypoxemic respiratory failure secondary to COVID-19 pneumonia The patient does have baseline severe COPD based upon pulmonary function studies from March 2020. She has completed her treatment course of remdesivir and remains on Decadron. I would also advise continuing scheduled bronchodilator therapy as ordered. The patient will be continued on Airvo heated high flow oxygen with plans to wean FiO2 to maintain saturations at or above 90%. Encourage incentive spirometer use and mobilize patient as tolerated. There is no evidence of pulmonary embolism identified on CTA chest. The patient will also be continued on scheduled IV diuretic therapy as tolerated by hemodynamics and renal function. 2. Recent hip surgery/advanced age/hypertension/hyperlipidemia/anxiety Complicates care, management, recovery and prognosis. Continue home medications as indicated. This note was generated with [employer] dictation software. It may contain incorrect words, spelling, and punctuation that were not noted in checking the note before signing. Inpatient E&M: [id number] [facility] L[facility]
[2020-10-05 06:37] LABS: Absolute Neutrophil Count 11.4 X10^3/uL (2.0-7.7); Basophil# 0.02 X10^3/uL; Basophil% 0.1 % (0-1); Eosinophil# 0.29 X10^3/uL; Hematocrit 35.5 % (37-47); Hemoglobin 11.2 g/dL (12.0-15.0); Lymphocyte % 11.5 % (19-41); Mean Corp Hgb Conc 31.5 g/dL (32-36); Mean Corpuscular Hgb 32.5 pg (27.0-32.0); Mean Corpuscular Volume 102.9 fL (81-99); Mean Platelet Vol. 10.7 fl (6.2-12.0); Monocyte% 6.8 % (0-10); NRBC Flagged by Analyzer 0 % (0-5); Neutrophil # 11.42 X10^3/uL (2.7-7.7); Platelet Count 319 K/mm3 (150-450); RBC Distribution Width CV 15.1 % (11.6-14.6); RBC Distribution Width SD 54.9 fl (35.1-43.9); Red Blood Count 3.45 M/mm3 (4.2-5.4); White Blood Count 14.8 K/mm3 (4.4-11.0)
[2020-10-05] MEDS: Budesonide Respules 0.5 MG/2 ML AMPUL.NEB. INHALATION ×2 (06:56→19:04)
[2020-10-05] MEDS: Ipratropium/Albuterol Sulfate 3 ML AMPUL.NEB INHALATION ×4 (06:56→19:03)
[2020-10-05 07:00] LABS: ALB/GLOB Ratio 0.6 RATIO (0.9-2.4); AST(SGOT) 22 U/L (15-37); Alanine Aminotransfer ALT/SGPT 23 U/L (13-56); Albumin, Serum 2.4 g/dL (3.2-5.0); Alkaline Phosphatase 71 U/L (45-117); Anion Gap 4 (5-15); BUN 30 mg/dL (7-18); BUN/Creat Ratio 31.2 RATIO (10-20); Calcium,Total 10.1 mg/dL (8.5-10.1); Chloride 99 mmol/L (98-107); Creatinine, Serum 0.96 mg/dL (0.55-1.02); EST Glomerular Filtration Rate 59 mL/min (>60); Est Glom Filt Rate - Afr Amer 71 mL/min (>60); Estimated Creatinine Clearance 36.64 ml/min; Globulin 3.9 g/dL (2.2-4.2); Glucose 90 mg/dL (74-106); Potassium 3.8 mmol/L (3.5-5.1); Protein, Total 6.3 g/dL (6.4-8.2); Sodium Level 139 mmol/L (136-145)
--- NOTE | 2020-10-05 07:01 | CPS ---
patient on Airvo
[2020-10-05] MEDS: Furosemide 40 MG/4 ML Vial IV ×2 (08:26→17:06)
[2020-10-05] MEDS: 0.9% Saline Lock 10 ML Syringe IV ×2 (08:27→17:07)
[2020-10-05] MEDS: Aspirin 81 MG TAB.CHEW PO (10:15)
[2020-10-05] MEDS: Enoxaparin 40 MG/0.4 ML Syringe SC (10:15)
[2020-10-05] MEDS: Magnesium Chloride 64 MG Delay Rel.Tablet PO ×2 (10:16→21:18)
[2020-10-05] MEDS: Ramipril 10 MG Capsule PO (10:16)
[2020-10-05] MEDS: PARoxetine CR 12.5 MG Tablet 37.5 MG PO (10:16)
[2020-10-05] MEDS: Isosorbide Mononitrate 30 MG Tablet PO (10:16)
[2020-10-05] MEDS: dexAMETHasone 4 MG Tablet 6 MG PO (10:16)
[2020-10-05] MEDS: Multivitamins,Therapeutic Tablet 1 TABLET PO (10:17)
[2020-10-05] MEDS: busPIRone 15 MG TABLET PO (10:17)
[2020-10-05] MEDS: Calcium (Elemental) 500 MG Tablet PO ×2 (10:17→21:18)
[2020-10-05] MEDS: Fluticasone 0.05% 1 SPRAY NASAL.SRY NASAL ×2 (10:19→21:17)
[2020-10-05] MEDS: Famotidine 20 MG Tablet PO (10:27)
--- NOTE | 2020-10-05 13:17 | PCM.PN.HOSP ---
Patient Problems: Active and Suspected Problems (Last Reviewed 09/27/20 @ 13:[address] Ean Chirinos, DO) COVID-19 (Acute) Pneumonia (Acute) Reason for Visit: Follow-up for acute hypoxic respiratory failure secondary to bilateral COVID-19 pneumonia on baseline COPD and bronchiectasis Objective: Patient is still on high flow modified oxygen. Sometimes he gets tachypneic heart rate in the upper 90s to low 100s. Physical exam General: Alert, Oriented x3, Cooperative HEENT: Atraumatic, PERRLA, EOMI, Normocephalic Oral: No Gingival or Mucosal Lesions/ Ulcerations Neck: Supple, No JVD, Negative Carotid Bruits Lungs: Air entry diminished in bilateral lung bases. Bilateral fine expiratory rhonchi. Cardiovascular: Regular rate, Regular Rhythm, Normal S1, Normal S2, No murmurs Abdomen: Bowel Sounds Present, Soft, Non Tender, Non-Distended : No renal angle tenderness. No suprapubic tenderness. Extremities: No edema, Capillary Refill Less than 3 Seconds Skin: No rashes, No breakdown Musculoskeletal: No Tenderness to Palpation of Joints or Extremities. Low body mass. Loss of subcutaneous fat. Neurological: Cranial nerves II-XII grossly intact, Deep Tendon Reflexes 2+/4 and Symmetrical, Neuro grossly intact Psych/Mental Status: Normal Affect, Appropriate. Vitals/I&O's: Vital Signs Temp Pulse Resp BP Pulse Ox 98.9 F 105 H 21 H 112/65 92 10/05/20 11:15 10/05/20 11:38 10/05/20 11:38 10/05/20 11:15 10/05/20 11:15 Oxygen Flow Rate (L/min) 64 Oxygen Delivery Method Airvo Weight: 111 lb 5.335 oz Body Mass Index (BMI) 19.7 Intake and Output for Last 24 Hours 10/03/20 10/04/20 10/05/20 23:59 23:59 23:59 Intake Total 540 / 780 1290 / 1440 300 / 300 Output Total 450 / 750 2175 / 2175 200 / 200 Balance -885 / -735 100 / 100 Microbiology Past 72 Hours 09/27/20 09:40 Blood Culture (Wb) - Anticubital Left Blood Culture - Final No growth in 5 days. Laboratory Results 10/05/20 06:04: WBC 14.8 H, RBC 3.45 L, Hgb 11.2 L, Hct 35.5 L, MCV 102.9 H, MCH 32.5 H, MCHC 31.5 L, RDW Std Deviation 54.9 H, RDW Coeff of Linette 15.1 H, Plt Count 319, MPV 10.7, Immature Gran % (Auto) 2.600 H, Neut % (Auto) 77.0 H, Lymph % (Auto) 11.5 L, [place] % (Auto) 6.8, Eos % (Auto) 2.0, Baso % (Auto) 0.1, Absolute Neuts (auto) 11.4 H, Absolute Lymphs (auto) 1.70, Nucleated RBC % 0 10/05/20 06:04: Sodium 139, Potassium 3.8, Chloride 99, Carbon Dioxide 36.0 H, Anion Gap 4 L, BUN 30 H, Creatinine 0.96, Estim Creat Clear Calc 36.64, Est GFR (MDRD) Af Amer 71, Est GFR (MDRD) Non-Af 59 L, BUN/Creatinine Ratio 31.2 H, Glucose 90, Calcium 10.1, Total Bilirubin 0.50, AST 22, ALT 23, Alkaline Phosphatase 71, Total Protein 6.3 L, Albumin 2.4 L, Globulin 3.9, Albumin/Globulin Ratio 0.6 L Current Medications Acetaminophen (Acetaminophen 500 Mg Tablet) 1,000 mg PO Q8H PRN PRN Reason: Pain 1-10 or Fever Last Admin: 10/03/20 16:36 Dose: 1,000 mg Documented by: Albuterol Sulfate (Albuterol Sulfate 18 Gm Inhaler (200 Puffs)) 2 puff IH Q4H PRN PRN PRN Reason: SHORTNESS OF BREATH Last Admin: 10/01/20 20:44 Dose: 2 puff Documented by: Albuterol/Ipratropium (Ipratropium/Albuterol Sulfate 3 Ml Ampul.Neb) 3 ml INHALATION Q4HWA.RT [facility] Last Admin: 10/05/20 11:37 Dose: 3 ml Documented by: Aspirin (Aspirin 81 Mg Tab.Chew) 81 mg PO DAILY [facility] Last Admin: 10/05/20 10:15 Dose: 81 mg Documented by: Atorvastatin Calcium (Atorvastatin Calcium 40 Mg Tablet) 40 mg PO DAILY@2200 [facility] Last Admin: 10/04/20 20:55 Dose: 40 mg Documented by: Budesonide (Budesonide Respules 0.5 Mg/2 Ml Ampul.Neb.) 0.5 mg INHALATION Q12H.RT [facility] Last Admin: 10/05/20 06:56 Dose: 0.5 mg Documented by: Buspirone HCl (Buspirone 15 Mg Tablet) 15 mg PO DAILY [facility] Last Admin: 10/05/20 10:17 Dose: 15 mg Documented by: Calcium Carbonate (Calcium (Elemental) 500 Mg Tablet) 500 mg PO BID [facility] Last Admin: 10/05/20 10:17 Dose: 500 mg Documented by: Dexamethasone (Dexamethasone 4 Mg Tablet) 6 mg PO DAILY [facility] Stop: 10/05/20 23:59 Last Admin: 10/05/20 10:16 Dose: 6 mg Documented by: Enoxaparin Sodium (Enoxaparin 40 Mg/0.4 Ml Syringe) 40 mg SC DAILY [facility] Last Admin: 10/05/20 10:15 Dose: 40 mg Documented by: Famotidine (Famotidine 20 Mg Tablet) 20 mg PO DAILY [facility] Last Admin: 10/05/20 10:27 Dose: 20 mg Documented by: Fluticasone Propionate (Fluticasone 0.05% 1 [place] Nasal.Sry) 1 spray NASAL BID [facility] Last Admin: 10/05/20 10:19 Dose: 1 spray Documented by: Furosemide (Furosemide 40 Mg/4 Ml Vial) 40 mg IV BID@1000,1800 [facility] Last Admin: 10/05/20 08:26 Dose: 40 mg Documented by: Sodium Chloride () 250 mls @ 15 mls/hr IV .[id number] PRN PRN Reason: Saline Flush Last Infusion: 09/29/20 04:54 Dose: 0 mls/hr Documented by: Sodium Chloride () 250 mls @ 15 mls/hr IV .[id number] PRN PRN Reason: Additional IVPB Infusion Isosorbide Mononitrate (Isosorbide Mononitrate 30 Mg Tablet) 30 mg PO DAILY [facility] Last Admin: 10/05/20 10:16 Dose: 30 mg Documented by: Lactobacillus Acidophilus (Lactobacillus Acidophilus) 1 tablet PO DAILY [facility] Last Admin: 10/05/20 10:16 Dose: 1 tablet Documented by: Lorazepam (Lorazepam 0.5 Mg Tablet) 0.5 mg PO Q6H PRN PRN PRN Reason: ANXIETY Last Admin: 10/01/20 20:47 Dose: 0.5 mg Documented by: Magnesium Chloride (Magnesium Chloride 64 Mg Delay Rel.Tablet) 64 mg PO BID [facility] Last Admin: 10/05/20 10:16 Dose: 64 mg Documented by: Miscellaneous Information (Inhaler, Assist Devices 1 Each Spacer) 0 each INHALATION PRN PRN PRN Reason: WITH INHALER Multivitamins (Multivitamins,Therapeutic Tablet) 1 tablet PO DAILY [facility] Last Admin: 10/05/20 10:17 Dose: 1 tablet Documented by: Paroxetine HCl (Paroxetine Cr 12.5 Mg Tablet) 37.5 mg PO DAILY [facility] Last Admin: 10/05/20 10:16 Dose: 37.5 mg Documented by: Polyethylene Glycol (Polyethylene Glycol 3350 17 Gm Packet) 17 gm PO DAILY [facility] Last Admin: 10/05/20 10:18 Dose: Not Given Documented by: Ramipril (Ramipril 10 Mg Capsule) 10 mg PO DAILY [facility] Last Admin: 10/05/20 10:16 Dose: 10 mg Documented by: Sodium Chloride (0.9% Saline Lock 10 Ml Syringe) 10 - 40 ml IV UD PRN PRN Reason: SALINE FLUSH Last Admin: 10/05/20 08:27 Dose: 10 ml Documented by: Sodium Chloride (Sodium Chloride 0.65% 1 [place].Btl) 2 spray NASAL BID PRN PRN PRN Reason: NASAL DRYNESS Last Admin: 10/03/20 20:53 Dose: 2 spray Documented by: STROKE Vital Signs/Narrative: Vital Signs Temp Pulse Resp BP Pulse Ox 10/05/20 11:38 105 H 21 H 10/05/20 11:15 98.9 F 99 16 112/65 92 10/05/20 10:13 104 H 10/05/20 10:12 99.0 F 100 16 109/55 L 94 Medical Necessity - Tobacco Use Smoking Status: Former smoker Assessment/Plan All Active Problems (Last Reviewed 09/27/20 @ 13:[address] Ean Chirinos, DO) COVID-19 (Acute) Pneumonia (Acute) Pulmonary edema (Resolved) Pneumonia (Resolved) Physical debility (Acute) Dehydration (Acute) Tachycardia (Acute) This 79-year-old female with history of COPD on 3 L of home oxygen was admitted with fever 102 Fahrenheit, hypoxia, dizziness on 09/26 after she had COVID-19 vaccination. Patient had Levaquin in ED. 1. Acute COVID 19 pneumonia: Chest CT scan showed no evidence of PE but emphysematous changes the right upper lobe and bronchiectasis in both lower lobes, worse on RLL and new focal infiltrate in RLL. Patient had first COVID-19 vaccination on 09/26 and developed fever. COVID-19 rapid antigen is positive and patient has fever, lymphopenia and elevated D-dimer. On dexamethasone and remdesivir, through 10/01. On broad-spectrum antibiotic with suspicion of HCAP as patient was hospitalized last 3 months. ID has been consulted. On IV Zosyn. Urinary antigens are negative. Blood cultures x2 are negative for more than 48 hours. 10/01: Urine culture shows no growth. Seen by wire stretcher. No fever in last 72 hours. Still requires high FiO2. Mild leukocytosis. Inflammatory markers BNP and D-dimer are elevated. Procalcitonin 0.1. 10/02: Work-up for bacterial infection is negative therefore Zosyn was discontinued yesterday. 10/03: Patient is still dyspnea at rest and hypoxic and on Bipap 10/04: On high flow oxygen alternating with BiPAP at night/nap. Patient completed remdesivir on 10/01. On Decadron scheduled bronchodilator. Incentive spirometry. Pulmonary consult reviewed. 10/05: Patient respiratory status is not much changed. On scheduled bronchodilator. Bronchopulmonary hygiene. 2. Dizziness: Probably due to BPPV, vertigo: Resolved. 3. Acute on chronic hypoxic respiratory failure due to COPD and bronchiectasis as mentioned above. Patient follows Dr. Joy. As mentioned above patient on BiPAP. [employer] consulted. 10/02: Patient is still on BiPAP high flow oxygen. Complains of secretions on BiPAP. 4. Gram negative pneumonia ruled out 5. Recent right hip femoral neck fracture: Patient had recent right total hip replacement by Dr. Arreaga on 09/08. PT and OT to continue 6. VTE prophylaxis: On enoxaparin 40 mg subcu daily. 7. Advanced care planning: Patient wishes to be DNR Comfort Care arrest with intubation if necessary. Moderate protein calorie malnutrition, chronic, present on admission: Patient is on Ensure Enlive. Clinical Impression(s) from Imaging Studies Chest X-Ray 09/27/20 10:30 IMPRESSION: Persistent bibasilar infiltrates worse on the left side although there has been moderate clearing as compared to prior study. This is superimposed on emphysematous changes and pulmonary scarring. Chest CTA 09/27/20 10:36 IMPRESSION: No evidence of pulmonary embolism. Improved aeration of both lungs as compared to prior study with residual changes present superimposed on emphysematous changes and bronchiectasis. Microbiology Past 72 Hours 09/27/20 09:40 Blood Culture (Wb) - Anticubital Left Blood Culture - Final No growth in 5 days. 09/27/20 09:40 Blood Culture (Wb) - Right Forearm Blood Culture - Final No growth in 5 days. Inpatient E&M: 82199 Subs Hosp L2
[2020-10-05] MEDS: Atorvastatin Calcium 40 MG Tablet PO (21:18)
[2020-10-06] VITALS (15 sets, daily range): BP systolic 107–142; BP diastolic 61–72; PULSE 72–104; RESP 12–24; TEMP 36.5–36.8; O2SAT 88–96
--- NOTE | 2020-10-06 05:54 | PCM.PN.PUL ---
Patient Problems: Active and Suspected Problems (Last Reviewed 09/27/20 @ 13:[address] Ean Chirinos, DO) COVID-19 (Acute) Pneumonia (Acute) Subjective: The patient was seen and examined at the bedside this morning. Events from the last 24 hours have been reviewed. The patient is currently afebrile, hemodynamically stable and maintaining appropriate oxygen saturations on BiPAP with an FiO2 requirement of 60%. The patient has completed her treatment course of remdesivir and remains on scheduled bronchodilators, Decadron and scheduled IV Lasix. Objective: The patient's most recent lab work, culture data and imaging studies have all been personally reviewed. Coronavirus PCR was positive on September 27. - Physical Exam Vitals/I&O's: Vital Signs Temp Pulse Resp BP Pulse Ox 97.8 F 80 15 126/67 H 94 10/06/20 04:24 10/06/20 04:54 10/06/20 04:54 10/06/20 04:24 10/06/20 04:54 Oxygen Flow Rate (L/min) 64 Oxygen Delivery Method Bi-pap Weight: 111 lb 5.335 oz Body Mass Index (BMI) 19.7 Intake and Output for Last 24 Hours 10/04/20 10/05/20 10/06/20 23:59 23:59 23:59 Intake Total 1290 / 1440 540 / 540 Output Total 2175 / 2175 900 / 900 Balance -885 / -735 -360 / -360 General: Alert, Cooperative, No apparent distress HEENT: Atraumatic, Normocephalic Oral: No Gingival or Mucosal Lesions/ Ulcerations Neck: Supple, No Nodes, Trachea Midline Lungs: No rhonchi, No wheeze, No rales, Diminished Cardiovascular: Regular rate, Regular Rhythm Abdomen: Bowel Sounds Present, Soft, Non Tender Extremities: No clubbing, No cyanosis, No edema Skin: No breakdown Musculoskeletal: No Tenderness to Palpation of Joints or Extremities Lymphatic: No Cervical, Supraclavicular, or Inguinal Adenopathy Neurological: Cranial nerves II-XII grossly intact, Neuro grossly intact Psych/Mental Status: Normal Affect, Appropriate Labs (Last 48 Hours) 10/05/20 10/05/20 06:04 06:04 WBC 14.8 H RBC 3.45 L Hgb 11.2 L Hct 35.5 L MCV 102.9 H MCH 32.5 H MCHC 31.5 L RDW Std Deviation 54.9 H RDW Coeff of Linette 15.1 H Plt Count 319 MPV 10.7 Immature Gran % (Auto) 2.600 H Neut % (Auto) 77.0 H Lymph % (Auto) 11.5 L [place] % (Auto) 6.8 Eos % (Auto) 2.0 Baso % (Auto) 0.1 Absolute Neuts (auto) 11.4 H Absolute Lymphs (auto) 1.70 Nucleated RBC % 0 Sodium 139 Potassium 3.8 Chloride 99 Carbon Dioxide 36.0 H Anion Gap 4 L BUN 30 H Creatinine 0.96 Estim Creat Clear Calc 36.64 Est GFR (MDRD) Af Amer 71 Est GFR (MDRD) Non-Af 59 L BUN/Creatinine Ratio 31.2 H Glucose 90 Calcium 10.1 Total Bilirubin 0.50 AST 22 ALT 23 Alkaline Phosphatase 71 Total Protein 6.3 L Albumin 2.4 L Globulin 3.9 Albumin/Globulin Ratio 0.6 L Clinical Impression(s) from Imaging Studies Chest X-Ray 09/27/20 10:30 IMPRESSION: Persistent bibasilar infiltrates worse on the left side although there has been moderate clearing as compared to prior study. This is superimposed on emphysematous changes and pulmonary scarring. Electronically Signed: Shreyas Westbrook MD at 10:52 EST , Service support , Chest CTA 09/27/20 10:36 IMPRESSION: No evidence of pulmonary embolism. Improved aeration of both lungs as compared to prior study with residual changes present superimposed on emphysematous changes and bronchiectasis. Electronically Signed: Shreyas Westbrook MD at 11:13 EST , Service support , Current Medications Acetaminophen (Acetaminophen 500 Mg Tablet) 1,000 mg PO Q8H PRN PRN Reason: Pain 1-10 or Fever Last Admin: 10/03/20 16:36 Dose: 1,000 mg Documented by: Albuterol Sulfate (Albuterol Sulfate 18 Gm Inhaler (200 Puffs)) 2 puff IH Q4H PRN PRN PRN Reason: SHORTNESS OF BREATH Last Admin: 10/01/20 20:44 Dose: 2 puff Documented by: Albuterol/Ipratropium (Ipratropium/Albuterol Sulfate 3 Ml Ampul.Neb) 3 ml INHALATION Q4HWA.RT [facility] Last Admin: 10/05/20 19:03 Dose: 3 ml Documented by: Aspirin (Aspirin 81 Mg Tab.Chew) 81 mg PO DAILY [facility] Last Admin: 10/05/20 10:15 Dose: 81 mg Documented by: Atorvastatin Calcium (Atorvastatin Calcium 40 Mg Tablet) 40 mg PO DAILY@2200 [facility] Last Admin: 10/05/20 21:18 Dose: 40 mg Documented by: Budesonide (Budesonide Respules 0.5 Mg/2 Ml Ampul.Neb.) 0.5 mg INHALATION Q12H.RT [facility] Last Admin: 10/05/20 19:04 Dose: 0.5 mg Documented by: Buspirone HCl (Buspirone 15 Mg Tablet) 15 mg PO DAILY [facility] Last Admin: 10/05/20 10:17 Dose: 15 mg Documented by: Calcium Carbonate (Calcium (Elemental) 500 Mg Tablet) 500 mg PO BID [facility] Last Admin: 10/05/20 21:18 Dose: 500 mg Documented by: Enoxaparin Sodium (Enoxaparin 40 Mg/0.4 Ml Syringe) 40 mg SC DAILY [facility] Last Admin: 10/05/20 10:15 Dose: 40 mg Documented by: Famotidine (Famotidine 20 Mg Tablet) 20 mg PO DAILY [facility] Last Admin: 10/05/20 10:27 Dose: 20 mg Documented by: Fluticasone Propionate (Fluticasone 0.05% 1 [place] Nasal.Sry) 1 spray NASAL BID [facility] Last Admin: 10/05/20 21:17 Dose: 1 spray Documented by: Furosemide (Furosemide 40 Mg/4 Ml Vial) 40 mg IV BID@1000,1800 [facility] Last Admin: 10/05/20 17:06 Dose: 40 mg Documented by: Sodium Chloride () 250 mls @ 15 mls/hr IV .[id number] PRN PRN Reason: Saline Flush Last Infusion: 09/29/20 04:54 Dose: 0 mls/hr Documented by: Sodium Chloride () 250 mls @ 15 mls/hr IV .[id number] PRN PRN Reason: Additional IVPB Infusion Isosorbide Mononitrate (Isosorbide Mononitrate 30 Mg Tablet) 30 mg PO DAILY [facility] Last Admin: 10/05/20 10:16 Dose: 30 mg Documented by: Lactobacillus Acidophilus (Lactobacillus Acidophilus) 1 tablet PO DAILY [facility] Last Admin: 10/05/20 10:16 Dose: 1 tablet Documented by: Lorazepam (Lorazepam 0.5 Mg Tablet) 0.5 mg PO Q6H PRN PRN PRN Reason: ANXIETY Last Admin: 10/01/20 20:47 Dose: 0.5 mg Documented by: Magnesium Chloride (Magnesium Chloride 64 Mg Delay Rel.Tablet) 64 mg PO BID [facility] Last Admin: 10/05/20 21:18 Dose: 64 mg Documented by: Miscellaneous Information (Inhaler, Assist Devices 1 Each Spacer) 0 each INHALATION PRN PRN PRN Reason: WITH INHALER Multivitamins (Multivitamins,Therapeutic Tablet) 1 tablet PO DAILY [facility] Last Admin: 10/05/20 10:17 Dose: 1 tablet Documented by: Paroxetine HCl (Paroxetine Cr 12.5 Mg Tablet) 37.5 mg PO DAILY [facility] Last Admin: 10/05/20 10:16 Dose: 37.5 mg Documented by: Polyethylene Glycol (Polyethylene Glycol 3350 17 Gm Packet) 17 gm PO DAILY [facility] Last Admin: 10/05/20 10:18 Dose: Not Given Documented by: Ramipril (Ramipril 10 Mg Capsule) 10 mg PO DAILY [facility] Last Admin: 10/05/20 10:16 Dose: 10 mg Documented by: Sodium Chloride (0.9% Saline Lock 10 Ml Syringe) 10 - 40 ml IV UD PRN PRN Reason: SALINE FLUSH Last Admin: 10/05/20 17:07 Dose: 10 ml Documented by: Sodium Chloride (Sodium Chloride 0.65% 1 [place].Btl) 2 spray NASAL BID PRN PRN PRN Reason: NASAL DRYNESS Last Admin: 10/03/20 20:53 Dose: 2 spray Documented by: Medical Necessity - Tobacco Use Smoking Status: Former smoker Assessment/Plan All Active Problems (Last Reviewed 09/27/20 @ 13:[address] Ean Chirinos, DO) COVID-19 (Acute) Pneumonia (Acute) Pulmonary edema (Resolved) Pneumonia (Resolved) Physical debility (Acute) Dehydration (Acute) Tachycardia (Acute) RECOMMENDATIONS: 1. Continue supplemental oxygen and wean FiO2 to maintain saturations at or above 90%. 2. Continue Decadron to complete 10-day treatment course. 3. Continue scheduled bronchodilator therapy. Resume triple therapy inhaler regimen at discharge. 4. Encourage incentive spirometer use and mobilize patient as tolerated. 5. Continue diuretic regimen as tolerated by hemodynamics and renal function. Given increase in creatinine, will change Lasix dosing to once daily. IMPRESSIONS: 1. Acute on chronic hypoxemic respiratory failure secondary to COVID-19 pneumonia The patient does have baseline severe COPD based upon pulmonary function studies from March 2020. She has completed her treatment course of remdesivir and remains on Decadron. I would also advise continuing scheduled bronchodilator therapy as ordered. The patient will be continued on Airvo heated high flow oxygen with plans to wean FiO2 to maintain saturations at or above 90%. Encourage incentive spirometer use and mobilize patient as tolerated. There is no evidence of pulmonary embolism identified on CTA chest. The patient will also be continued on scheduled IV diuretic therapy as tolerated by hemodynamics and renal function. 2. Recent hip surgery/advanced age/hypertension/hyperlipidemia/anxiety Complicates care, management, recovery and prognosis. Continue home medications as indicated. This note was generated with [employer] dictation software. It may contain incorrect words, spelling, and punctuation that were not noted in checking the note before signing. Inpatient E&M: 04705 [facility] L3
[2020-10-06 06:43] LABS: Anion Gap 3 (5-15); BUN 37 mg/dL (7-18); BUN/Creat Ratio 35.2 RATIO (10-20); Calcium,Total 10.1 mg/dL (8.5-10.1); Chloride 101 mmol/L (98-107); Creatinine, Serum 1.05 mg/dL (0.55-1.02); EST Glomerular Filtration Rate 53 mL/min (>60); Est Glom Filt Rate - Afr Amer 65 mL/min (>60); Glucose 110 mg/dL (74-106); Potassium 4.4 mmol/L (3.5-5.1); Sodium Level 141 mmol/L (136-145)
[2020-10-06] MEDS: Ipratropium/Albuterol Sulfate 3 ML AMPUL.NEB INHALATION ×3 (06:59→19:47)
[2020-10-06] MEDS: Budesonide Respules 0.5 MG/2 ML AMPUL.NEB. INHALATION ×2 (06:59→19:47)
--- NOTE | 2020-10-06 08:26 | PCM.PN.HOSP ---
Patient Problems: Active and Suspected Problems (Last Reviewed 09/27/20 @ 13:[address] Ean Chirinos, DO) COVID-19 (Acute) Pneumonia (Acute) Reason for Visit: Follow-up for acute hypoxic respiratory failure secondary to Covid pneumonia with chronic lung disease, bronchiectasis and COPD Objective: No fever. 60% FiO2, BiPAP alternating with high flow modified oxygen Exam: General: Alert, Oriented x3, Cooperative, low body mass, BMI 19.7 kg/m? HEENT: Atraumatic, PERRLA, EOMI, Normocephalic Oral: Oral whitish thrush present in palate, tongue base and lateral pharyngeal wall. Neck: Supple, No JVD, Negative Carotid Bruits Lungs: Air entry diminished in bilateral lung bases. Bilateral expiratory rhonchi present. No tachypnea Cardiovascular: Regular rate, Regular Rhythm, Normal S1, Normal S2, No murmurs Abdomen: Bowel Sounds Present, Soft, Non Tender, Non-Distended : No renal angle tenderness. No suprapubic tenderness. Extremities: No edema, Capillary Refill Less than 3 Seconds Skin: No rashes, No breakdown Musculoskeletal: No Tenderness to Palpation of Joints or Extremities. Neurological: Cranial nerves II-XII grossly intact, Deep Tendon Reflexes 2+/4 and Symmetrical, Neuro grossly intact Psych/Mental Status: Normal Affect, Appropriate. Vitals/I&O's: Vital Signs Temp Pulse Resp BP Pulse Ox 97.8 F 84 16 126/67 H 96 10/06/20 04:24 10/06/20 07:29 10/06/20 07:01 10/06/20 04:24 10/06/20 07:01 Oxygen Flow Rate (L/min) 64 Oxygen Delivery Method Bi-pap Weight: 111 lb 5.335 oz Body Mass Index (BMI) 19.7 Intake and Output for Last 24 Hours 10/04/20 10/05/20 10/06/20 23:59 23:59 23:59 Intake Total 1290 / 1440 540 / 540 300 / 300 Output Total 2175 / 2175 900 / 900 225 / 225 Balance -885 / -735 -360 / -360 75 / 75 Laboratory Results 10/06/20 06:06: Sodium 141, Potassium 4.4, Chloride 101, Carbon Dioxide 37.0 H, Anion Gap 3 L, BUN 37 H, Creatinine 1.05 H, Estim Creat Clear Calc 33.50, Est GFR (MDRD) Af Amer 65, Est GFR (MDRD) Non-Af 53 L, BUN/Creatinine Ratio 35.2 H, Glucose 110 H, Calcium 10.1 Current Medications Acetaminophen (Acetaminophen 500 Mg Tablet) 1,000 mg PO Q8H PRN PRN Reason: Pain 1-10 or Fever Last Admin: 10/03/20 16:36 Dose: 1,000 mg Documented by: Albuterol Sulfate (Albuterol Sulfate 18 Gm Inhaler (200 Puffs)) 2 puff IH Q4H PRN PRN PRN Reason: SHORTNESS OF BREATH Last Admin: 10/01/20 20:44 Dose: 2 puff Documented by: Albuterol/Ipratropium (Ipratropium/Albuterol Sulfate 3 Ml Ampul.Neb) 3 ml INHALATION Q4HWA.RT [facility] Last Admin: 10/06/20 06:59 Dose: 3 ml Documented by: Aspirin (Aspirin 81 Mg Tab.Chew) 81 mg PO DAILY [facility] Last Admin: 10/05/20 10:15 Dose: 81 mg Documented by: Atorvastatin Calcium (Atorvastatin Calcium 40 Mg Tablet) 40 mg PO DAILY@2200 [facility] Last Admin: 10/05/20 21:18 Dose: 40 mg Documented by: Budesonide (Budesonide Respules 0.5 Mg/2 Ml Ampul.Neb.) 0.5 mg INHALATION Q12H.RT [facility] Last Admin: 10/06/20 06:59 Dose: 0.5 mg Documented by: Buspirone HCl (Buspirone 15 Mg Tablet) 15 mg PO DAILY [facility] Last Admin: 10/05/20 10:17 Dose: 15 mg Documented by: Calcium Carbonate (Calcium (Elemental) 500 Mg Tablet) 500 mg PO BID [facility] Last Admin: 10/05/20 21:18 Dose: 500 mg Documented by: Enoxaparin Sodium (Enoxaparin 40 Mg/0.4 Ml Syringe) 40 mg SC DAILY [facility] Last Admin: 10/05/20 10:15 Dose: 40 mg Documented by: Famotidine (Famotidine 20 Mg Tablet) 20 mg PO DAILY [facility] Last Admin: 10/05/20 10:27 Dose: 20 mg Documented by: Fluticasone Propionate (Fluticasone 0.05% 1 [place] Nasal.Sry) 1 spray NASAL BID [facility] Last Admin: 10/05/20 21:17 Dose: 1 spray Documented by: Furosemide (Furosemide 40 Mg/4 Ml Vial) 40 mg IV DAILY [facility] Sodium Chloride () 250 mls @ 15 mls/hr IV .[id number] PRN PRN Reason: Saline Flush Last Infusion: 09/29/20 04:54 Dose: 0 mls/hr Documented by: Sodium Chloride () 250 mls @ 15 mls/hr IV .[id number] PRN PRN Reason: Additional IVPB Infusion Isosorbide Mononitrate (Isosorbide Mononitrate 30 Mg Tablet) 30 mg PO DAILY [facility] Last Admin: 10/05/20 10:16 Dose: 30 mg Documented by: Lactobacillus Acidophilus (Lactobacillus Acidophilus) 1 tablet PO DAILY [facility] Last Admin: 10/05/20 10:16 Dose: 1 tablet Documented by: Lorazepam (Lorazepam 0.5 Mg Tablet) 0.5 mg PO Q6H PRN PRN PRN Reason: ANXIETY Last Admin: 10/01/20 20:47 Dose: 0.5 mg Documented by: Magnesium Chloride (Magnesium Chloride 64 Mg Delay Rel.Tablet) 64 mg PO BID [facility] Last Admin: 10/05/20 21:18 Dose: 64 mg Documented by: Miscellaneous Information (Inhaler, Assist Devices 1 Each Spacer) 0 each INHALATION PRN PRN PRN Reason: WITH INHALER Multivitamins (Multivitamins,Therapeutic Tablet) 1 tablet PO DAILY [facility] Last Admin: 10/05/20 10:17 Dose: 1 tablet Documented by: Paroxetine HCl (Paroxetine Cr 12.5 Mg Tablet) 37.5 mg PO DAILY [facility] Last Admin: 10/05/20 10:16 Dose: 37.5 mg Documented by: Polyethylene Glycol (Polyethylene Glycol 3350 17 Gm Packet) 17 gm PO DAILY [facility] Last Admin: 10/05/20 10:18 Dose: Not Given Documented by: Ramipril (Ramipril 10 Mg Capsule) 10 mg PO DAILY [facility] Last Admin: 10/05/20 10:16 Dose: 10 mg Documented by: Sodium Chloride (0.9% Saline Lock 10 Ml Syringe) 10 - 40 ml IV UD PRN PRN Reason: SALINE FLUSH Last Admin: 10/05/20 17:07 Dose: 10 ml Documented by: Sodium Chloride (Sodium Chloride 0.65% 1 [place].Btl) 2 spray NASAL BID PRN PRN PRN Reason: NASAL DRYNESS Last Admin: 10/03/20 20:53 Dose: 2 spray Documented by: STROKE Vital Signs/Narrative: Vital Signs Pulse Resp Pulse Ox 10/06/20 07:29 84 10/06/20 07:01 89 16 96 10/06/20 04:54 80 15 94 Medical Necessity - Tobacco Use Smoking Status: Former smoker Assessment/Plan All Active Problems (Last Reviewed 09/27/20 @ 13:[address] Ean Chirinos, DO) COVID-19 (Acute) Pneumonia (Acute) Pulmonary edema (Resolved) Pneumonia (Resolved) Physical debility (Acute) Dehydration (Acute) Tachycardia (Acute) This 79-year-old female with history of COPD on 3 L of home oxygen was admitted with fever 102 Fahrenheit, hypoxia, dizziness on 09/26 after she had COVID-19 vaccination. Patient had Levaquin in ED. 1. Acute COVID 19 pneumonia: Chest CT scan showed no evidence of PE but emphysematous changes the right upper lobe and bronchiectasis in both lower lobes, worse on RLL and new focal infiltrate in RLL. Patient had first COVID-19 vaccination on 09/26 and developed fever. COVID-19 rapid antigen is positive and patient has fever, lymphopenia and elevated D-dimer. On dexamethasone and remdesivir, through 10/01. On broad-spectrum antibiotic with suspicion of HCAP as patient was hospitalized last 3 months. ID has been consulted. On IV Zosyn. Urinary antigens are negative. Blood cultures x2 are negative for more than 48 hours. 10/01: Urine culture shows no growth. Seen by race and sports book writer. No fever in last 72 hours. Still requires high FiO2. Mild leukocytosis. Inflammatory markers BNP and D-dimer are elevated. Procalcitonin 0.1. 10/02: Work-up for bacterial infection is negative therefore Zosyn was discontinued yesterday. 10/03: Patient is still dyspnea at rest and hypoxic and on Bipap 10/04: On high flow oxygen alternating with BiPAP at night/nap. Patient completed remdesivir on 10/01. On Decadron scheduled bronchodilator. Incentive spirometry. Pulmonary consult reviewed. 10/05: Patient respiratory status is not much changed. On scheduled bronchodilator. Bronchopulmonary hygiene. 10/06: Oropharyngeal thrush, started on nystatin swish and swallow. NIPPV to continue. Encouraged incentive spirometry and PEP 2. Dizziness: Probably due to BPPV, vertigo: Resolved. 3. Acute on chronic hypoxic respiratory failure due to COPD and bronchiectasis as mentioned above. Patient follows Dr. Joy. As mentioned above patient on BiPAP. Rewinder Operator consulted. 10/02: Patient is still on BiPAP high flow oxygen. Complains of secretions on BiPAP. 4. Gram negative pneumonia ruled out 5. Recent right hip femoral neck fracture: Patient had recent right total hip replacement by Dr. Arreaga on 09/08. PT and OT to continue 6. VTE prophylaxis: On enoxaparin 40 mg subcu daily. 7. Advanced care planning: Patient wishes to be DNR Comfort Care arrest with intubation if necessary. Moderate protein calorie malnutrition, chronic, present on admission: Patient is on Ensure Enlive. Clinical Impression(s) from Imaging Studies Chest X-Ray 09/27/20 10:30 IMPRESSION: Persistent bibasilar infiltrates worse on the left side although there has been moderate clearing as compared to prior study. This is superimposed on emphysematous changes and pulmonary scarring. Chest CTA 09/27/20 10:36 IMPRESSION: No evidence of pulmonary embolism. Improved aeration of both lungs as compared to prior study with residual changes present superimposed on emphysematous changes and bronchiectasis. Microbiology Past 72 Hours 09/27/20 09:40 Blood Culture (Wb) - Anticubital Left Blood Culture - Final No growth in 5 days. 09/27/20 09:40 Blood Culture (Wb) - Right Forearm Blood Culture - Final No growth in 5 days. Inpatient E&M: [id number] Subs Hosp L2
[2020-10-06] MEDS: Magnesium Chloride 64 MG Delay Rel.Tablet PO ×2 (09:04→20:57)
[2020-10-06] MEDS: PARoxetine CR 12.5 MG Tablet 37.5 MG PO (09:04)
[2020-10-06] MEDS: Enoxaparin 40 MG/0.4 ML Syringe SC (09:04)
[2020-10-06] MEDS: Multivitamins,Therapeutic Tablet 1 TABLET PO (09:04)
[2020-10-06] MEDS: Famotidine 20 MG Tablet PO (09:04)
[2020-10-06] MEDS: Calcium (Elemental) 500 MG Tablet PO ×2 (09:04→20:57)
[2020-10-06] MEDS: Aspirin 81 MG TAB.CHEW PO (09:05)
[2020-10-06] MEDS: Ramipril 10 MG Capsule PO (09:05)
[2020-10-06] MEDS: busPIRone 15 MG TABLET PO (09:05)
[2020-10-06] MEDS: Fluticasone 0.05% 1 SPRAY NASAL.SRY NASAL ×2 (09:05→20:56)
[2020-10-06] MEDS: Isosorbide Mononitrate 30 MG Tablet PO (09:05)
[2020-10-06] MEDS: Furosemide 40 MG/4 ML Vial IV (09:06)
[2020-10-06] MEDS: 0.9% Saline Lock 10 ML Syringe IV (09:06)
[2020-10-06] MEDS: Polyethylene Glycol 3350 17 GM PACKET PO (09:17)
[2020-10-06] MEDS: NYSTATIN 500,000 UNIT/5 ML UDC 500000 UNIT PO ×4 (11:02→20:57)
[2020-10-06] MEDS: Acetaminophen 500 MG Tablet 1000 MG PO (14:30)
[2020-10-06] MEDS: Atorvastatin Calcium 40 MG Tablet PO (20:57)
[2020-10-07] VITALS (23 sets, daily range): BP systolic 94–153; BP diastolic 54–75; PULSE 88–116; RESP 12–23; TEMP 36.6–37.1; O2SAT 90–96
[2020-10-07 06:51] LABS: Absolute Lymphocyte Count 1.01 X10^3/uL (0.83-4.51); Absolute Neutrophil Count 10.5 X10^3/uL (2.0-7.7); Basophil# 0.08 X10^3/uL; Basophil% 0.6 % (0-1); Eosinophil# 0.35 X10^3/uL; Eosinophils% 2.7 % (0-5); Hematocrit 37.2 % (37-47); Hemoglobin 11.6 g/dL (12.0-15.0); Lymphocyte # 1.01 X10^3/ul (4.0); Lymphocyte % 7.7 % (19-41); Mean Corp Hgb Conc 31.2 g/dL (32-36); Mean Corpuscular Hgb 32.2 pg (27.0-32.0); Mean Corpuscular Volume 103.3 fL (81-99); Mean Platelet Vol. 10.6 fl (6.2-12.0); Monocyte# 0.94 X10^3/uL; Monocyte% 7.1 % (0-10); NRBC Flagged by Analyzer 0 % (0-5); Neutrophil % 79.5 % (47-70); Platelet Count 309 K/mm3 (150-450); RBC Distribution Width CV 15.1 % (11.6-14.6); RBC Distribution Width SD 57.1 fl (35.1-43.9); White Blood Count 13.2 K/mm3 (4.4-11.0)
[2020-10-07 07:19] LABS: ALB/GLOB Ratio 0.6 RATIO (0.9-2.4); AST(SGOT) 19 U/L (15-37); Alanine Aminotransfer ALT/SGPT 20 U/L (13-56); Albumin, Serum 2.4 g/dL (3.2-5.0); Alkaline Phosphatase 72 U/L (45-117); Anion Gap 4 (5-15); BUN 39 mg/dL (7-18); BUN/Creat Ratio 33.1 RATIO (10-20); Calcium,Total 10.5 mg/dL (8.5-10.1); Chloride 100 mmol/L (98-107); Creatinine, Serum 1.18 mg/dL (0.55-1.02); EST Glomerular Filtration Rate 47 mL/min (>60); Est Glom Filt Rate - Afr Amer 56 mL/min (>60); Estimated Creatinine Clearance 29.81 ml/min; Globulin 4.1 g/dL (2.2-4.2); Glucose 104 mg/dL (74-106); Potassium 4.4 mmol/L (3.5-5.1); Protein, Total 6.5 g/dL (6.4-8.2); Sodium Level 141 mmol/L (136-145)
--- NOTE | 2020-10-07 07:49 | PN_ITS ---
Patient Problems: Active and Suspected Problems (Last Reviewed 09/27/20 @ 13:[address] Ean Chirinos, DO) COVID-19 (Acute) Pneumonia (Acute) Reason for Visit: Follow up on respiratory failure/acute COVID-19 pneumonia/COPD Subjective: Patient was seen and examined. Denied any new complaint. Still remains on significantly high amounts of oxygen -on Airvo alternating with BiPAP. Objective: Physical exam: General: Alert, Cooperative, No apparent distress, on BiPAP HEENT: Atraumatic, Normocephalic Oral: No Gingival or Mucosal Lesions/ Ulcerations Neck: Supple, No Nodes, Trachea Midline Lungs: Diminished Cardiovascular: Regular rate, Regular Rhythm Abdomen: Bowel Sounds Present, Soft, Non Tender Extremities: No clubbing, No cyanosis, No edema Skin: No breakdown Musculoskeletal: No Tenderness to Palpation of Joints or Extremities Lymphatic: No Cervical, Supraclavicular, or Inguinal Adenopathy Neurological: Cranial nerves II-XII grossly intact, Neuro grossly intact Psych/Mental Status: Normal Affect, Appropriate Vitals/I&O's: Vital Signs Temp Pulse Resp BP Pulse Ox 97.9 F 94 17 153/75 H 96 10/07/20 03:24 10/07/20 04:32 10/07/20 04:32 10/07/20 03:24 10/07/20 04:32 Oxygen Flow Rate (L/min) 64 Oxygen Delivery Method Bi-pap Weight: 50.5 kg Body Mass Index (BMI) 19.7 Intake and Output for Last 24 Hours 10/05/20 10/06/20 10/07/20 23:59 23:59 23:59 Intake Total 540 / 540 540 / 540 250 / 250 Output Total 900 / 900 625 / 625 200 / 200 Balance -360 / -360 -85 / -85 50 / 50 Laboratory Results 10/07/20 06:10: WBC 13.2 H, RBC 3.60 L, Hgb 11.6 L, Hct 37.2, MCV 103.3 H, MCH 32.2 H, MCHC 31.2 L, RDW Std Deviation 57.1 H, RDW Coeff of Linette 15.1 H, Plt Count 309, MPV 10.6, Immature Gran % (Auto) 2.400 H, Neut % (Auto) 79.5 H, Lymph % (Auto) 7.7 L, [place] % (Auto) 7.1, Eos % (Auto) 2.7, Baso % (Auto) 0.6, Absolute Neuts (auto) 10.5 H, Absolute Lymphs (auto) 1.01, Nucleated RBC % 0 10/07/20 06:10: Sodium 141, Potassium 4.4, Chloride 100, Carbon Dioxide 37.0 H, Anion Gap 4 L, BUN 39 H, Creatinine 1.18 H, Estim Creat Clear Calc 29.81, Est GFR (MDRD) Af Amer 56 L, Est GFR (MDRD) Non-Af 47 L, BUN/Creatinine Ratio 33.1 H , Glucose 104, Calcium 10.5 H, Total Bilirubin 0.50, AST 19, ALT 20, Alkaline Phosphatase 72, Total Protein 6.5, Albumin 2.4 L, Globulin 4.1, Albumin/Globulin Ratio 0.6 L Current Medications Acetaminophen (Acetaminophen 500 Mg Tablet) 1,000 mg PO Q8H PRN PRN Reason: Pain 1-10 or Fever Last Admin: 10/06/20 14:30 Dose: 1,000 mg Documented by: Albuterol Sulfate (Albuterol Sulfate 18 Gm Inhaler (200 Puffs)) 2 puff IH Q4H PRN PRN PRN Reason: SHORTNESS OF BREATH Last Admin: 10/06/20 14:00 Dose: 2 puff Documented by: Albuterol/Ipratropium (Ipratropium/Albuterol Sulfate 3 Ml Ampul.Neb) 3 ml INHALATION Q4HWA.RT [facility] Last Admin: 10/06/20 19:47 Dose: 3 ml Documented by: Aspirin (Aspirin 81 Mg Tab.Chew) 81 mg PO DAILY [facility] Last Admin: 10/06/20 09:05 Dose: 81 mg Documented by: Atorvastatin Calcium (Atorvastatin Calcium 40 Mg Tablet) 40 mg PO DAILY@2200 [facility] Last Admin: 10/06/20 20:57 Dose: 40 mg Documented by: Budesonide (Budesonide Respules 0.5 Mg/2 Ml Ampul.Neb.) 0.5 mg INHALATION Q12H.RT [facility] Last Admin: 10/06/20 19:47 Dose: 0.5 mg Documented by: Buspirone HCl (Buspirone 15 Mg Tablet) 15 mg PO DAILY [facility] Last Admin: 10/06/20 09:05 Dose: 15 mg Documented by: Calcium Carbonate (Calcium (Elemental) 500 Mg Tablet) 500 mg PO BID [facility] Last Admin: 10/06/20 20:57 Dose: 500 mg Documented by: Enoxaparin Sodium (Enoxaparin 40 Mg/0.4 Ml Syringe) 40 mg SC DAILY [facility] Last Admin: 10/06/20 09:04 Dose: 40 mg Documented by: Famotidine (Famotidine 20 Mg Tablet) 20 mg PO DAILY [facility] Last Admin: 10/06/20 09:04 Dose: 20 mg Documented by: Fluticasone Propionate (Fluticasone 0.05% 1 [place] Nasal.Sry) 1 spray NASAL BID [facility] Last Admin: 10/06/20 20:56 Dose: 1 spray Documented by: Furosemide (Furosemide 40 Mg/4 Ml Vial) 40 mg IV DAILY [facility] Last Admin: 10/06/20 09:06 Dose: 40 mg Documented by: Sodium Chloride () 250 mls @ 15 mls/hr IV .[id number] PRN PRN Reason: Saline Flush Last Infusion: 09/29/20 04:54 Dose: 0 mls/hr Documented by: Sodium Chloride () 250 mls @ 15 mls/hr IV .[id number] PRN PRN Reason: Additional IVPB Infusion Isosorbide Mononitrate (Isosorbide Mononitrate 30 Mg Tablet) 30 mg PO DAILY [facility] Last Admin: 10/06/20 09:05 Dose: 30 mg Documented by: Lactobacillus Acidophilus (Lactobacillus Acidophilus) 1 tablet PO DAILY [facility] Last Admin: 10/06/20 09:05 Dose: 1 tablet Documented by: Lorazepam (Lorazepam 0.5 Mg Tablet) 0.5 mg PO Q6H PRN PRN PRN Reason: ANXIETY Last Admin: 10/01/20 20:47 Dose: 0.5 mg Documented by: Magnesium Chloride (Magnesium Chloride 64 Mg Delay Rel.Tablet) 64 mg PO BID [facility] Last Admin: 10/06/20 20:57 Dose: 64 mg Documented by: Miscellaneous Information (Inhaler, Assist Devices 1 Each Spacer) 0 each INHALATION PRN PRN PRN Reason: WITH INHALER Multivitamins (Multivitamins,Therapeutic Tablet) 1 tablet PO DAILY [facility] Last Admin: 10/06/20 09:04 Dose: 1 tablet Documented by: Nystatin (Nystatin 500,000 Unit/5 Ml Udc) 500,000 unit PO 4X/DAY [facility] Last Admin: 10/06/20 20:57 Dose: 500,000 unit Documented by: Paroxetine HCl (Paroxetine Cr 12.5 Mg Tablet) 37.5 mg PO DAILY [facility] Last Admin: 10/06/20 09:04 Dose: 37.5 mg Documented by: Polyethylene Glycol (Polyethylene Glycol 3350 17 Gm Packet) 17 gm PO DAILY [facility] Last Admin: 10/06/20 09:17 Dose: 17 gm Documented by: Ramipril (Ramipril 10 Mg Capsule) 10 mg PO DAILY [facility] Last Admin: 10/06/20 09:05 Dose: 10 mg Documented by: Sodium Chloride (0.9% Saline Lock 10 Ml Syringe) 10 - 40 ml IV UD PRN PRN Reason: SALINE FLUSH Last Admin: 10/06/20 09:06 Dose: 10 ml Documented by: Sodium Chloride (Sodium Chloride 0.65% 1 [place].Btl) 2 spray NASAL BID PRN PRN PRN Reason: NASAL DRYNESS Last Admin: 10/03/20 20:53 Dose: 2 spray Documented by: STROKE Vital Signs/Narrative: Vital Signs Pulse Resp Pulse Ox 10/07/20 04:32 94 17 96 Medical Necessity - Tobacco Use Smoking Status: Former smoker Assessment/Plan All Active Problems (Last Reviewed 09/27/20 @ 13:[address] Ean Chirinos, ) COVID-19 (Acute) Pneumonia (Acute) Pulmonary edema (Resolved) Pneumonia (Resolved) Physical debility (Acute) Dehydration (Acute) Tachycardia (Acute) 1. Acute hypoxic respiratory failure secondary to acute Covid- 19 pneumonia, remains almost the same, Continue with breathing treatments, po steroids, encourage use of incentive spirometer. Wean off oxygen for SPO2 more than 94% 2. Acute COVID-19 pneumonia with hypoxia CTA of the chest was negative for acute PE On dexamethasone, breathing treatments Continue on Lasix 40 mg IV daily 3. Acute COPD/bronchiectasis exacerbation, improved Continue management as in #1, continue on Decadron, breathing treatments 4. Hypertension/hyperlipidemia, all remain stable Continue on atorvastatin, isosorbide, ramipril 5. 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 DVT prophylaxis with Lovenox subcu Inpatient E&M: [id number] [facility] L3
[2020-10-07] MEDS: Ipratropium/Albuterol Sulfate 3 ML AMPUL.NEB INHALATION ×4 (07:55→19:13)
[2020-10-07] MEDS: Budesonide Respules 0.5 MG/2 ML AMPUL.NEB. INHALATION ×2 (07:55→19:13)
--- NOTE | 2020-10-07 10:01 | PN_ITS ---
Patient Problems: Active and Suspected Problems (Last Reviewed 09/27/20 @ 13:[address] Ean Chirinos, DO) COVID-19 (Acute) Pneumonia (Acute) Subjective: Patient did okay overnight. No acute issues were reported. Patient was tolerating BiPAP on my evaluation and felt subjectively unchanged compared to previous. Patient was subsequently taken off to Airvo to facilitate eating breakfast and lasted only an hour before she started to desaturate again. - Physical Exam Vitals/I&O's: Vital Signs Temp Pulse Resp BP Pulse Ox 36.6 C 97 23 H 153/75 H 94 10/07/20 03:24 10/07/20 07:55 10/07/20 07:55 10/07/20 03:24 10/07/20 07:55 Oxygen Flow Rate (L/min) 64 Oxygen Delivery Method Bi-pap Weight: 50.5 kg Body Mass Index (BMI) 19.7 Intake and Output for Last 24 Hours 10/05/20 10/06/20 10/07/20 23:59 23:59 23:59 Intake Total 540 / 540 540 / 540 250 / 250 Output Total 900 / 900 625 / 625 200 / 200 Balance -360 / -360 -85 / -85 50 / 50 General: Alert, Oriented x3, Cooperative, No apparent distress - While on BiPAP, - - Thin build. HEENT: Atraumatic, PERRLA, EOMI, Normocephalic, - - No scleral icterus or injection noted Oral: Moist Mucosa, No Gingival or Mucosal Lesions/ Ulcerations Neck: Supple, No JVD, No Nodes, Trachea Midline Lungs: No rhonchi, No wheeze, No rales, Diminished, - - Symmetric expansion. No dullness to percussion Cardiovascular: Regular rate, Regular Rhythm, Normal S1, Normal S2, No murmurs, No rub noted, No Gallop Abdomen: Bowel Sounds Present, Soft, Non Tender, Non-Distended Extremities: No clubbing, No cyanosis, No edema Skin: No rashes, No breakdown Musculoskeletal: No Tenderness to Palpation of Joints or Extremities Lymphatic: No Cervical, Supraclavicular, or Inguinal Adenopathy Neurological: Cranial nerves II-XII grossly intact, Neuro grossly intact, Motor Exam 5/5 strength throughout Psych/Mental Status: Normal Affect, Appropriate Laboratory Results 10/07/20 06:10: WBC 13.2 H, RBC 3.60 L, Hgb 11.6 L, Hct 37.2, MCV 103.3 H, MCH 32.2 H, MCHC 31.2 L, RDW Std Deviation 57.1 H, RDW Coeff of Linette 15.1 H, Plt Count 309, MPV 10.6, Immature Gran % (Auto) 2.400 H, Neut % (Auto) 79.5 H, Lymph % (Auto) 7.7 L, [place] % (Auto) 7.1, Eos % (Auto) 2.7, Baso % (Auto) 0.6, Absolute Neuts (auto) 10.5 H, Absolute Lymphs (auto) 1.01, Nucleated RBC % 0 10/07/20 06:10: Sodium 141, Potassium 4.4, Chloride 100, Carbon Dioxide 37.0 H, Anion Gap 4 L, BUN 39 H, Creatinine 1.18 H, Estim Creat Clear Calc 29.81, Est GFR (MDRD) Af Amer 56 L, Est GFR (MDRD) Non-Af 47 L, BUN/Creatinine Ratio 33.1 H , Glucose 104, Calcium 10.5 H, Total Bilirubin 0.50, AST 19, ALT 20, Alkaline Phosphatase 72, Total Protein 6.5, Albumin 2.4 L, Globulin 4.1, Albumin/Globulin Ratio 0.6 L Current Medications Acetaminophen (Acetaminophen 500 Mg Tablet) 1,000 mg PO Q8H PRN PRN Reason: Pain 1-10 or Fever Last Admin: 10/06/20 14:30 Dose: 1,000 mg Documented by: Albuterol Sulfate (Albuterol Sulfate 18 Gm Inhaler (200 Puffs)) 2 puff IH Q4H PRN PRN PRN Reason: SHORTNESS OF BREATH Last Admin: 10/06/20 14:00 Dose: 2 puff Documented by: Albuterol/Ipratropium (Ipratropium/Albuterol Sulfate 3 Ml Ampul.Neb) 3 ml INHALATION Q4HWA.RT [facility] Last Admin: 10/07/20 07:55 Dose: 3 ml Documented by: Aspirin (Aspirin 81 Mg Tab.Chew) 81 mg PO DAILY [facility] Last Admin: 10/06/20 09:05 Dose: 81 mg Documented by: Atorvastatin Calcium (Atorvastatin Calcium 40 Mg Tablet) 40 mg PO DAILY@2200 [facility] Last Admin: 10/06/20 20:57 Dose: 40 mg Documented by: Budesonide (Budesonide Respules 0.5 Mg/2 Ml Ampul.Neb.) 0.5 mg INHALATION Q12H.RT [facility] Last Admin: 10/07/20 07:55 Dose: 0.5 mg Documented by: Buspirone HCl (Buspirone 15 Mg Tablet) 15 mg PO DAILY [facility] Last Admin: 10/06/20 09:05 Dose: 15 mg Documented by: Calcium Carbonate (Calcium (Elemental) 500 Mg Tablet) 500 mg PO BID [facility] Last Admin: 10/06/20 20:57 Dose: 500 mg Documented by: Enoxaparin Sodium (Enoxaparin 40 Mg/0.4 Ml Syringe) 40 mg SC DAILY [facility] Last Admin: 10/06/20 09:04 Dose: 40 mg Documented by: Famotidine (Famotidine 20 Mg Tablet) 20 mg PO DAILY [facility] Last Admin: 10/06/20 09:04 Dose: 20 mg Documented by: Fluticasone Propionate (Fluticasone 0.05% 1 [place] Nasal.Sry) 1 spray NASAL BID [facility] Last Admin: 10/06/20 20:56 Dose: 1 spray Documented by: Furosemide (Furosemide 40 Mg/4 Ml Vial) 40 mg IV DAILY [facility] Last Admin: 10/06/20 09:06 Dose: 40 mg Documented by: Sodium Chloride () 250 mls @ 15 mls/hr IV .[id number] PRN PRN Reason: Saline Flush Last Infusion: 09/29/20 04:54 Dose: 0 mls/hr Documented by: Sodium Chloride () 250 mls @ 15 mls/hr IV .[id number] PRN PRN Reason: Additional IVPB Infusion Isosorbide Mononitrate (Isosorbide Mononitrate 30 Mg Tablet) 30 mg PO DAILY [facility] Last Admin: 10/06/20 09:05 Dose: 30 mg Documented by: Lactobacillus Acidophilus (Lactobacillus Acidophilus) 1 tablet PO DAILY [facility] Last Admin: 10/06/20 09:05 Dose: 1 tablet Documented by: Lorazepam (Lorazepam 0.5 Mg Tablet) 0.5 mg PO Q6H PRN PRN PRN Reason: ANXIETY Last Admin: 10/01/20 20:47 Dose: 0.5 mg Documented by: Magnesium Chloride (Magnesium Chloride 64 Mg Delay Rel.Tablet) 64 mg PO BID [facility] Last Admin: 10/06/20 20:57 Dose: 64 mg Documented by: Miscellaneous Information (Inhaler, Assist Devices 1 Each Spacer) 0 each INHALATION PRN PRN PRN Reason: WITH INHALER Multivitamins (Multivitamins,Therapeutic Tablet) 1 tablet PO DAILY [facility] Last Admin: 10/06/20 09:04 Dose: 1 tablet Documented by: Nystatin (Nystatin 500,000 Unit/5 Ml Udc) 500,000 unit PO 4X/DAY [facility] Last Admin: 10/06/20 20:57 Dose: 500,000 unit Documented by: Paroxetine HCl (Paroxetine Cr 12.5 Mg Tablet) 37.5 mg PO DAILY [facility] Last Admin: 10/06/20 09:04 Dose: 37.5 mg Documented by: Polyethylene Glycol (Polyethylene Glycol 3350 17 Gm Packet) 17 gm PO DAILY [facility] Last Admin: 10/06/20 09:17 Dose: 17 gm Documented by: Ramipril (Ramipril 10 Mg Capsule) 10 mg PO DAILY [facility] Last Admin: 10/06/20 09:05 Dose: 10 mg Documented by: Sodium Chloride (0.9% Saline Lock 10 Ml Syringe) 10 - 40 ml IV UD PRN PRN Reason: SALINE FLUSH Last Admin: 10/06/20 09:06 Dose: 10 ml Documented by: Sodium Chloride (Sodium Chloride 0.65% 1 [place].Btl) 2 spray NASAL BID PRN PRN PRN Reason: NASAL DRYNESS Last Admin: 10/03/20 20:53 Dose: 2 spray Documented by: Medical Necessity - Tobacco Use Smoking Status: Former smoker Assessment/Plan All Active Problems (Last Reviewed 09/27/20 @ 13:[address] Ean Chirinos, DO) COVID-19 (Acute) Pneumonia (Acute) Pulmonary edema (Resolved) Pneumonia (Resolved) Physical debility (Acute) Dehydration (Acute) Tachycardia (Acute) RECOMMENDATIONS: 1. Continue supplemental oxygen and wean FiO2 to maintain saturations at or above 90%. 2. Continue Decadron to complete 10-day treatment course. 3. Continue scheduled bronchodilator therapy. Resume triple therapy inhaler regimen at discharge. 4. Encourage incentive spirometer use and mobilize patient as tolerated. 5. Continue diuretic regimen as tolerated by hemodynamics and renal function. Given increase in creatinine, will continue Lasix dosing at daily. IMPRESSIONS: 1. Acute on chronic hypoxemic respiratory failure secondary to COVID-19 pneumonia The patient does have baseline severe COPD based upon pulmonary function studies from March 2020. She has completed her treatment course of remdesivir and remains on Decadron. I would also advise continuing scheduled bronchodilator therapy as ordered. The patient will be continued on Airvo heated high flow oxygen with plans to wean FiO2 to maintain saturations at or above 90%. Encourage incentive spirometer use and mobilize patient as tolerated. There is no evidence of pulmonary embolism identified on CTA chest. The patient will also be continued on scheduled IV diuretic therapy as tolerated by hemodynamics and renal function. This has to be assessed on a daily basis. Unclear how well patient will tolerate diuretic therapy to achieve better oxygenation. Anticipate protracted course and may require LTAC evaluation. 2. Recent hip surgery/advanced age/hypertension/hyperlipidemia/anxiety Complicates care, management, recovery and prognosis. Continue home medications as indicated. Inpatient E&M: 72311 Subs Hosp L2
[2020-10-07] MEDS: Ramipril 10 MG Capsule PO (10:18)
[2020-10-07] MEDS: Aspirin 81 MG TAB.CHEW PO (10:18)
[2020-10-07] MEDS: busPIRone 15 MG TABLET PO (10:18)
[2020-10-07] MEDS: Isosorbide Mononitrate 30 MG Tablet PO (10:18)
[2020-10-07] MEDS: PARoxetine CR 12.5 MG Tablet 37.5 MG PO (10:18)
[2020-10-07] MEDS: Multivitamins,Therapeutic Tablet 1 TABLET PO (10:19)
[2020-10-07] MEDS: Calcium (Elemental) 500 MG Tablet PO ×2 (10:19→21:09)
[2020-10-07] MEDS: Magnesium Chloride 64 MG Delay Rel.Tablet PO ×2 (10:19→21:10)
[2020-10-07] MEDS: Furosemide 40 MG/4 ML Vial IV (10:19)
[2020-10-07] MEDS: Fluticasone 0.05% 1 SPRAY NASAL.SRY NASAL ×2 (10:19→21:11)
[2020-10-07] MEDS: Famotidine 20 MG Tablet PO (10:19)
[2020-10-07] MEDS: 0.9% Saline Lock 10 ML Syringe IV ×2 (10:20→21:12)
[2020-10-07] MEDS: Enoxaparin 40 MG/0.4 ML Syringe SC (10:21)
[2020-10-07] MEDS: NYSTATIN 500,000 UNIT/5 ML UDC 500000 UNIT PO ×4 (10:21→21:10)
--- NOTE | 2020-10-07 13:00 | CASEMGMT ---
DIANE SAUL Note: Per Dr. Maguire, may begin considering LTACH referral for patient. RN DORYS spoke with daughter Piper on phone and had long conversation explaining LTACH and area list- including [facility] in [facility] and [facility] in [place]. discussed that bed availability may dictate openings for these facilities. Daughter is agreeable and suggested physician speak with her mother re: LTACH as she currently speaks about returning home. -Spoke with Dr. Maguire who will speak with pt tomorrow re: LTACH stay on dc. -Referral faxed to Mariia @ [facility]. Kaylee MCRAE RN ACM
[2020-10-07] MEDS: Atorvastatin Calcium 40 MG Tablet PO (21:10)
[2020-10-08] VITALS (23 sets, daily range): BP systolic 102–134; BP diastolic 52–75; PULSE 80–108; RESP 12–26; TEMP 36.3–37.3; O2SAT 85–100
[2020-10-08] MEDS: Budesonide Respules 0.5 MG/2 ML AMPUL.NEB. INHALATION ×2 (06:50→19:09)
[2020-10-08] MEDS: Ipratropium/Albuterol Sulfate 3 ML AMPUL.NEB INHALATION ×4 (06:50→19:09)
--- NOTE | 2020-10-08 07:28 | PN_ITS ---
Patient Problems: Active and Suspected Problems (Last Reviewed 09/27/20 @ 13:[address] Ean Chirinos, DO) COVID-19 (Acute) Pneumonia (Acute) Reason for Visit: Follow up on respiratory failure/acute COVID-19 pneumonia/COPD Subjective: Patient seen and examined. She remain still on high amounts of oxygen al ternating and forward BiPAP. Objective: Physical exam: General: Alert, Cooperative, No apparent distress, on BiPAP HEENT: Atraumatic, Normocephalic Oral: No Gingival or Mucosal Lesions/ Ulcerations Neck: Supple, No Nodes, Trachea Midline Lungs: Diminished Cardiovascular: Regular rate, Regular Rhythm Abdomen: Bowel Sounds Present, Soft, Non Tender Extremities: No clubbing, No cyanosis, No edema Skin: No breakdown Musculoskeletal: No Tenderness to Palpation of Joints or Extremities Lymphatic: No Cervical, Supraclavicular, or Inguinal Adenopathy Neurological: Cranial nerves II-XII grossly intact, Neuro grossly intact Psych/Mental Status: Normal Affect, Appropriate Vitals/I&O's: Vital Signs Temp Pulse Resp BP Pulse Ox 97.4 F L 91 19 H 117/60 93 10/08/20 02:12 10/08/20 06:52 10/08/20 06:52 10/08/20 05:59 10/08/20 06:52 Oxygen Flow Rate (L/min) 60 Oxygen Delivery Method Bi-pap Weight: 50.5 kg Body Mass Index (BMI) 19.7 Intake and Output for Last 24 Hours 10/06/20 10/07/20 10/08/20 23:59 23:59 23:59 Intake Total 540 / 540 550 / 550 Output Total 625 / 625 375 / 675 350 / 350 Balance -85 / -85 175 / -125 -350 / -350 Current Medications Acetaminophen (Acetaminophen 500 Mg Tablet) 1,000 mg PO Q8H PRN PRN Reason: Pain 1-10 or Fever Last Admin: 10/06/20 14:30 Dose: 1,000 mg Documented by: Albuterol Sulfate (Albuterol Sulfate 18 Gm Inhaler (200 Puffs)) 2 puff IH Q2H PRN PRN PRN Reason: SHORTNESS OF BREATH Albuterol/Ipratropium (Ipratropium/Albuterol Sulfate 3 Ml Ampul.Neb) 3 ml INHALATION Q4HWA.RT [facility] Last Admin: 10/08/20 06:50 Dose: 3 ml Documented by: Aspirin (Aspirin 81 Mg Tab.Chew) 81 mg PO DAILY [facility] Last Admin: 10/07/20 10:18 Dose: 81 mg Documented by: Atorvastatin Calcium (Atorvastatin Calcium 40 Mg Tablet) 40 mg PO DAILY@2200 [facility] Last Admin: 10/07/20 21:10 Dose: 40 mg Documented by: Budesonide (Budesonide Respules 0.5 Mg/2 Ml Ampul.Neb.) 0.5 mg INHALATION Q12H.RT [facility] Last Admin: 10/08/20 06:50 Dose: 0.5 mg Documented by: Buspirone HCl (Buspirone 15 Mg Tablet) 15 mg PO DAILY [facility] Last Admin: 10/07/20 10:18 Dose: 15 mg Documented by: Calcium Carbonate (Calcium (Elemental) 500 Mg Tablet) 500 mg PO BID [facility] Last Admin: 10/07/20 21:09 Dose: 500 mg Documented by: Enoxaparin Sodium (Enoxaparin 40 Mg/0.4 Ml Syringe) 40 mg SC DAILY [facility] Last Admin: 10/07/20 10:21 Dose: 40 mg Documented by: Famotidine (Famotidine 20 Mg Tablet) 20 mg PO DAILY [facility] Last Admin: 10/07/20 10:19 Dose: 20 mg Documented by: Fluticasone Propionate (Fluticasone 0.05% 1 [place] Nasal.Sry) 1 spray NASAL BID [facility] Last Admin: 10/07/20 21:11 Dose: 1 spray Documented by: Sodium Chloride () 250 mls @ 15 mls/hr IV .[id number] PRN PRN Reason: Saline Flush Last Infusion: 09/29/20 04:54 Dose: 0 mls/hr Documented by: Sodium Chloride () 250 mls @ 15 mls/hr IV .[id number] PRN PRN Reason: Additional IVPB Infusion Isosorbide Mononitrate (Isosorbide Mononitrate 30 Mg Tablet) 30 mg PO DAILY [facility] Last Admin: 10/07/20 10:18 Dose: 30 mg Documented by: Lactobacillus Acidophilus (Lactobacillus Acidophilus) 1 tablet PO DAILY [facility] Last Admin: 10/07/20 10:18 Dose: 1 tablet Documented by: Lorazepam (Lorazepam 0.5 Mg Tablet) 0.5 mg PO Q6H PRN PRN PRN Reason: ANXIETY Last Admin: 10/01/20 20:47 Dose: 0.5 mg Documented by: Magnesium Chloride (Magnesium Chloride 64 Mg Delay Rel.Tablet) 64 mg PO BID [facility] Last Admin: 10/07/20 21:10 Dose: 64 mg Documented by: Miscellaneous Information (Inhaler, Assist Devices 1 Each Spacer) 0 each INHALATION PRN PRN PRN Reason: WITH INHALER Multivitamins (Multivitamins,Therapeutic Tablet) 1 tablet PO DAILY [facility] Last Admin: 10/07/20 10:19 Dose: 1 tablet Documented by: Nystatin (Nystatin 500,000 Unit/5 Ml Udc) 500,000 unit PO 4X/DAY [facility] Last Admin: 10/07/20 21:10 Dose: 500,000 unit Documented by: Paroxetine HCl (Paroxetine Cr 12.5 Mg Tablet) 37.5 mg PO DAILY [facility] Last Admin: 10/07/20 10:18 Dose: 37.5 mg Documented by: Polyethylene Glycol (Polyethylene Glycol 3350 17 Gm Packet) 17 gm PO DAILY [facility] Last Admin: 10/07/20 10:21 Dose: Not Given Documented by: Ramipril (Ramipril 10 Mg Capsule) 10 mg PO DAILY [facility] Last Admin: 10/07/20 10:18 Dose: 10 mg Documented by: Sodium Chloride (0.9% Saline Lock 10 Ml Syringe) 10 - 40 ml IV UD PRN PRN Reason: SALINE FLUSH Last Admin: 10/07/20 21:12 Dose: 10 ml Documented by: Sodium Chloride (Sodium Chloride 0.65% 1 [place].Btl) 2 spray NASAL BID PRN PRN PRN Reason: NASAL DRYNESS Last Admin: 10/03/20 20:53 Dose: 2 spray Documented by: STROKE Vital Signs/Narrative: Vital Signs Pulse Resp BP Pulse Ox 10/08/20 06:52 89 19 H 93 10/08/20 06:00 89 10/08/20 05:59 89 17 117/60 100 10/08/20 03:32 108 H 96 Medical Necessity - Tobacco Use Smoking Status: Former smoker Assessment/Plan All Active Problems (Last Reviewed 09/27/20 @ 13:[address] Ean Chirinos, DO) COVID-19 (Acute) Pneumonia (Acute) Pulmonary edema (Resolved) Pneumonia (Resolved) Physical debility (Acute) Dehydration (Acute) Tachycardia (Acute) 1. Acute hypoxic respiratory failure secondary to acute Covid- 19 pneumonia, remains still on high amounts of oxygen Continue with breathing treatments, po steroids, encourage use of incentive spirometer. Wean off oxygen for SPO2 more than 94% 2. Acute COVID-19 pneumonia with hypoxia CTA of the chest was negative for acute PE On dexamethasone, breathing treatments Hold Lasix for now 3. Acute COPD/bronchiectasis exacerbation, improved Continue management as in #1, continue on Decadron, breathing treatments 4. Hypertension/hyperlipidemia, all remain stable Continue on atorvastatin, isosorbide, ramipril 5. 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 DVT prophylaxis with Lovenox subcu Inpatient E&M: [id number] [facility] Hosp L3
--- NOTE | 2020-10-08 09:27 | NURSING ---
spoke with Peter in lab regarding no labs yet drawn- states someone will be up to draw them.
[2020-10-08] MEDS: Isosorbide Mononitrate 30 MG Tablet PO (10:21)
[2020-10-08] MEDS: Ramipril 10 MG Capsule PO (10:21)
[2020-10-08] MEDS: Calcium (Elemental) 500 MG Tablet PO ×2 (10:21→20:10)
[2020-10-08] MEDS: Aspirin 81 MG TAB.CHEW PO (10:21)
[2020-10-08] MEDS: busPIRone 15 MG TABLET PO (10:21)
[2020-10-08] MEDS: Magnesium Chloride 64 MG Delay Rel.Tablet PO ×2 (10:21→20:10)
[2020-10-08] MEDS: Furosemide 40 MG Tablet PO (10:21)
[2020-10-08] MEDS: Famotidine 20 MG Tablet PO (10:21)
[2020-10-08] MEDS: Fluticasone 0.05% 1 SPRAY NASAL.SRY NASAL ×2 (10:21→20:16)
[2020-10-08] MEDS: Multivitamins,Therapeutic Tablet 1 TABLET PO (10:21)
[2020-10-08] MEDS: PARoxetine CR 12.5 MG Tablet 37.5 MG PO (10:21)
--- NOTE | 2020-10-08 10:21 | CASEMGMT ---
DIANE CM Note: call to Gab Pedersen for [facility]. they do not have bed availability currently and per their telemarketing sales representative, they are currently not accepting patients with high oxygen Bipap as the transfer to their facility. They can accept patient once she is stable on Airvo and can tolerate the ambulance ride. Will review towards the end of the week if patient is able to tolerate Airvo. Kaylee MCRAE RN ACM
[2020-10-08] MEDS: Enoxaparin 40 MG/0.4 ML Syringe SC (10:22)
[2020-10-08] MEDS: NYSTATIN 500,000 UNIT/5 ML UDC 500000 UNIT PO ×4 (10:22→20:09)
[2020-10-08] MEDS: Polyethylene Glycol 3350 17 GM PACKET PO (10:22)
--- NOTE | 2020-10-08 12:18 | PCM.PN.PUL ---
Patient Problems: Active and Suspected Problems (Last Reviewed 09/27/20 @ 13:[address] Ean Chirinos, DO) COVID-19 (Acute) Pneumonia (Acute) Subjective: Patient did okay overnight. Patient has not tolerated BiPAP breaks very frequently. Patient states she feels subjectively improved and has been able to be weaned to 60% FiO2. However, patient gets very short of breath shortly after BiPAP breaks. Objective: Morning labs have been ordered, but have not resulted yet. - Physical Exam Vitals/I&O's: Vital Signs Temp Pulse Resp BP Pulse Ox 36.6 C 83 22 H 115/62 93 10/08/20 10:35 10/08/20 10:56 10/08/20 10:56 10/08/20 10:35 10/08/20 10:56 Oxygen Flow Rate (L/min) 60 Oxygen Delivery Method Airvo Weight: 50.5 kg Body Mass Index (BMI) 19.7 Intake and Output for Last 24 Hours 10/06/20 10/07/20 10/08/20 23:59 23:59 23:59 Intake Total 540 / 540 550 / 550 Output Total 625 / 625 375 / 675 350 / 350 Balance -85 / -85 175 / -125 -350 / -350 General: Alert, Oriented x3, Cooperative, No apparent distress - While on BiPAP, - - Frail appearance HEENT: Atraumatic, PERRLA, EOMI, Normocephalic, - - No scleral icterus or injection noted Oral: Moist Mucosa, No Gingival or Mucosal Lesions/ Ulcerations Neck: Supple, No JVD, No Nodes, Trachea Midline Lungs: No rhonchi, No wheeze, No rales, Diminished Cardiovascular: Normal S1, Normal S2, No murmurs, No rub noted, No Gallop, Tachycardic Abdomen: Bowel Sounds Present, Soft, Non Tender, Non-Distended Extremities: No clubbing, No cyanosis Skin: - - No change from previous Musculoskeletal: No Tenderness to Palpation of Joints or Extremities Lymphatic: No Cervical, Supraclavicular, or Inguinal Adenopathy Neurological: Cranial nerves II-XII grossly intact, Neuro grossly intact, Motor Exam 5/5 strength throughout Psych/Mental Status: Normal Affect, Appropriate Current Medications Acetaminophen (Acetaminophen 500 Mg Tablet) 1,000 mg PO Q8H PRN PRN Reason: Pain 1-10 or Fever Last Admin: 10/06/20 14:30 Dose: 1,000 mg Documented by: Albuterol Sulfate (Albuterol Sulfate 18 Gm Inhaler (200 Puffs)) 2 puff IH Q2H PRN PRN PRN Reason: SHORTNESS OF BREATH Albuterol/Ipratropium (Ipratropium/Albuterol Sulfate 3 Ml Ampul.Neb) 3 ml INHALATION Q4HWA.RT [facility] Last Admin: 10/08/20 10:56 Dose: 3 ml Documented by: Aspirin (Aspirin 81 Mg Tab.Chew) 81 mg PO DAILY [facility] Last Admin: 10/08/20 10:21 Dose: 81 mg Documented by: Atorvastatin Calcium (Atorvastatin Calcium 40 Mg Tablet) 40 mg PO DAILY@2200 [facility] Last Admin: 10/07/20 21:10 Dose: 40 mg Documented by: Budesonide (Budesonide Respules 0.5 Mg/2 Ml Ampul.Neb.) 0.5 mg INHALATION Q12H.RT [facility] Last Admin: 10/08/20 06:50 Dose: 0.5 mg Documented by: Buspirone HCl (Buspirone 15 Mg Tablet) 15 mg PO DAILY [facility] Last Admin: 10/08/20 10:21 Dose: 15 mg Documented by: Calcium Carbonate (Calcium (Elemental) 500 Mg Tablet) 500 mg PO BID [facility] Last Admin: 10/08/20 10:21 Dose: 500 mg Documented by: Enoxaparin Sodium (Enoxaparin 40 Mg/0.4 Ml Syringe) 40 mg SC DAILY [facility] Last Admin: 10/08/20 10:22 Dose: 40 mg Documented by: Famotidine (Famotidine 20 Mg Tablet) 20 mg PO DAILY [facility] Last Admin: 10/08/20 10:21 Dose: 20 mg Documented by: Fluticasone Propionate (Fluticasone 0.05% 1 [place] Nasal.Sry) 1 spray NASAL BID [facility] Last Admin: 10/08/20 10:21 Dose: 1 spray Documented by: Furosemide (Furosemide 40 Mg Tablet) 40 mg PO DAILY [facility] Last Admin: 10/08/20 10:21 Dose: 40 mg Documented by: Sodium Chloride () 250 mls @ 15 mls/hr IV .[id number] PRN PRN Reason: Saline Flush Last Infusion: 09/29/20 04:54 Dose: 0 mls/hr Documented by: Sodium Chloride () 250 mls @ 15 mls/hr IV .[id number] PRN PRN Reason: Additional IVPB Infusion Isosorbide Mononitrate (Isosorbide Mononitrate 30 Mg Tablet) 30 mg PO DAILY [facility] Last Admin: 10/08/20 10:21 Dose: 30 mg Documented by: Lactobacillus Acidophilus (Lactobacillus Acidophilus) 1 tablet PO DAILY [facility] Last Admin: 10/08/20 10:20 Dose: 1 tablet Documented by: Lorazepam (Lorazepam 0.5 Mg Tablet) 0.5 mg PO Q6H PRN PRN PRN Reason: ANXIETY Last Admin: 10/01/20 20:47 Dose: 0.5 mg Documented by: Magnesium Chloride (Magnesium Chloride 64 Mg Delay Rel.Tablet) 64 mg PO BID [facility] Last Admin: 10/08/20 10:21 Dose: 64 mg Documented by: Miscellaneous Information (Inhaler, Assist Devices 1 Each Spacer) 0 each INHALATION PRN PRN PRN Reason: WITH INHALER Multivitamins (Multivitamins,Therapeutic Tablet) 1 tablet PO DAILY [facility] Last Admin: 10/08/20 10:21 Dose: 1 tablet Documented by: Nystatin (Nystatin 500,000 Unit/5 Ml Udc) 500,000 unit PO 4X/DAY [facility] Last Admin: 10/08/20 10:22 Dose: 500,000 unit Documented by: Paroxetine HCl (Paroxetine Cr 12.5 Mg Tablet) 37.5 mg PO DAILY [facility] Last Admin: 10/08/20 10:21 Dose: 37.5 mg Documented by: Polyethylene Glycol (Polyethylene Glycol 3350 17 Gm Packet) 17 gm PO DAILY [facility] Last Admin: 10/08/20 10:22 Dose: 17 gm Documented by: Ramipril (Ramipril 10 Mg Capsule) 10 mg PO DAILY [facility] Last Admin: 10/08/20 10:21 Dose: 10 mg Documented by: Sodium Chloride (0.9% Saline Lock 10 Ml Syringe) 10 - 40 ml IV UD PRN PRN Reason: SALINE FLUSH Last Admin: 10/07/20 21:12 Dose: 10 ml Documented by: Sodium Chloride (Sodium Chloride 0.65% 1 [place].Btl) 2 spray NASAL BID PRN PRN PRN Reason: NASAL DRYNESS Last Admin: 10/03/20 20:53 Dose: 2 spray Documented by: Medical Necessity - Tobacco Use Smoking Status: Former smoker Assessment/Plan All Active Problems (Last Reviewed 09/27/20 @ 13:[address] Ean Chirinos, DO) COVID-19 (Acute) Pneumonia (Acute) Pulmonary edema (Resolved) Pneumonia (Resolved) Physical debility (Acute) Dehydration (Acute) Tachycardia (Acute) RECOMMENDATIONS: 1. Continue supplemental oxygen and wean FiO2 to maintain saturations at or above 90%. 2. Continue Decadron to complete 10-day treatment course. 3. Continue scheduled bronchodilator therapy. Resume triple therapy inhaler regimen at discharge. 4. Encourage incentive spirometer use and mobilize patient as tolerated. 5. Continue diuretic regimen as tolerated by hemodynamics and renal function. Given increase in creatinine, will continue Lasix dosing at daily. 6. Follow-up on morning labs 7. Okay to proceed with LTAC evaluation from my perspective IMPRESSIONS: 1. Acute on chronic hypoxemic respiratory failure secondary to COVID-19 pneumonia The patient does have baseline severe COPD based upon pulmonary function studies from March 2020. She has completed her treatment course of remdesivir and remains on Decadron. I would also advise continuing scheduled bronchodilator therapy as ordered. The patient will be continued on Airvo heated high flow oxygen with plans to wean FiO2 to maintain saturations at or above 90%. Encourage incentive spirometer use and mobilize patient as tolerated. There is no evidence of pulmonary embolism identified on CTA chest. The patient will also be continued on scheduled IV diuretic therapy as tolerated by hemodynamics and renal function. This has to be assessed on a daily basis. We will need to follow-up on morning labs when available. Unclear how well patient will tolerate diuretic therapy to achieve better oxygenation. Anticipate protracted course and did discuss with the patient about a possible LTAC transfer. Patient appears to be relatively open to this option if deemed necessary. 2. Recent hip surgery/advanced age/hypertension/hyperlipidemia/anxiety Complicates care, management, recovery and prognosis. Continue home medications as indicated. Inpatient E&M: 24618 Subs Hosp L2
[2020-10-08 14:04] LABS: Absolute Lymphocyte Count 1.08 X10^3/uL (0.83-4.51); Absolute Neutrophil Count 13.1 X10^3/uL (2.0-7.7); Basophil# 0.05 X10^3/uL; Basophil% 0.3 % (0-1); Eosinophil# 0.31 X10^3/uL; Hematocrit 37.2 % (37-47); Hemoglobin 11.5 g/dL (12.0-15.0); Lymphocyte # 1.08 X10^3/ul (4.0); Lymphocyte % 6.9 % (19-41); Mean Corp Hgb Conc 30.9 g/dL (32-36); Mean Corpuscular Volume 103.6 fL (81-99); Mean Platelet Vol. 10.8 fl (6.2-12.0); Monocyte# 0.93 X10^3/uL; Monocyte% 5.9 % (0-10); NRBC Flagged by Analyzer 0 % (0-5); Neutrophil # 13.08 X10^3/uL (2.7-7.7); Neutrophil % 83.1 % (47-70); Platelet Count 313 K/mm3 (150-450); RBC Distribution Width CV 14.9 % (11.6-14.6); RBC Distribution Width SD 56.3 fl (35.1-43.9); Red Blood Count 3.59 M/mm3 (4.2-5.4); White Blood Count 15.7 K/mm3 (4.4-11.0)
[2020-10-08 14:34] LABS: ALB/GLOB Ratio 0.6 RATIO (0.9-2.4); AST(SGOT) 19 U/L (15-37); Alanine Aminotransfer ALT/SGPT 20 U/L (13-56); Albumin, Serum 2.5 g/dL (3.2-5.0); Alkaline Phosphatase 68 U/L (45-117); Anion Gap 4 (5-15); BUN 42 mg/dL (7-18); BUN/Creat Ratio 27.5 RATIO (10-20); Calcium,Total 10.8 mg/dL (8.5-10.1); Chloride 98 mmol/L (98-107); Creatinine, Serum 1.53 mg/dL (0.55-1.02); EST Glomerular Filtration Rate 35 mL/min (>60); Est Glom Filt Rate - Afr Amer 42 mL/min (>60); Estimated Creatinine Clearance 22.99 ml/min; Globulin 4.4 g/dL (2.2-4.2); Glucose 146 mg/dL (74-106); Potassium 3.7 mmol/L (3.5-5.1); Protein, Total 6.9 g/dL (6.4-8.2); Sodium Level 138 mmol/L (136-145)
[2020-10-08] MEDS: Atorvastatin Calcium 40 MG Tablet PO (20:09)
[2020-10-09] VITALS (16 sets, daily range): BP systolic 91–133; BP diastolic 49–94; PULSE 81–100; RESP 12–20; TEMP 36.6–37.3; O2SAT 89–98
[2020-10-09 06:46] LABS: Absolute Lymphocyte Count 1.01 X10^3/uL (0.83-4.51); Absolute Neutrophil Count 11.7 X10^3/uL (2.0-7.7); Basophil# 0.06 X10^3/uL; Basophil% 0.4 % (0-1); Eosinophil# 0.33 X10^3/uL; Eosinophils% 2.3 % (0-5); Hematocrit 35.1 % (37-47); Lymphocyte # 1.01 X10^3/ul (4.0); Lymphocyte % 7.1 % (19-41); Mean Corp Hgb Conc 31.3 g/dL (32-36); Mean Corpuscular Hgb 32.4 pg (27.0-32.0); Mean Corpuscular Volume 103.2 fL (81-99); Mean Platelet Vol. 11.2 fl (6.2-12.0); Monocyte# 0.96 X10^3/uL; Monocyte% 6.7 % (0-10); NRBC Flagged by Analyzer 0 % (0-5); Neutrophil # 11.73 X10^3/uL (2.7-7.7); Neutrophil % 81.9 % (47-70); Platelet Count 278 K/mm3 (150-450); RBC Distribution Width CV 14.7 % (11.6-14.6); RBC Distribution Width SD 55.8 fl (35.1-43.9); White Blood Count 14.3 K/mm3 (4.4-11.0)
[2020-10-09] MEDS: Ipratropium/Albuterol Sulfate 3 ML AMPUL.NEB INHALATION ×3 (07:14→19:27)
[2020-10-09] MEDS: Budesonide Respules 0.5 MG/2 ML AMPUL.NEB. INHALATION ×2 (07:14→19:27)
[2020-10-09 07:22] LABS: ALB/GLOB Ratio 0.6 RATIO (0.9-2.4); AST(SGOT) 17 U/L (15-37); Alanine Aminotransfer ALT/SGPT 17 U/L (13-56); Albumin, Serum 2.4 g/dL (3.2-5.0); Alkaline Phosphatase 66 U/L (45-117); Anion Gap 2 (5-15); BUN 38 mg/dL (7-18); BUN/Creat Ratio 24.5 RATIO (10-20); Calcium,Total 10.9 mg/dL (8.5-10.1); Chloride 100 mmol/L (98-107); Creatinine, Serum 1.55 mg/dL (0.55-1.02); EST Glomerular Filtration Rate 34 mL/min (>60); Est Glom Filt Rate - Afr Amer 41 mL/min (>60); Estimated Creatinine Clearance 22.69 ml/min; Globulin 4.1 g/dL (2.2-4.2); Glucose 110 mg/dL (74-106); Protein, Total 6.5 g/dL (6.4-8.2); Sodium Level 139 mmol/L (136-145)
--- NOTE | 2020-10-09 07:27 | PCM.PN.HOSP ---
Patient Problems: Active and Suspected Problems (Last Reviewed 09/27/20 @ 13:[address] Ean Chirinos, DO) COVID-19 (Acute) Pneumonia (Acute) Reason for Visit: Follow up on respiratory failure/acute COVID-19 pneumonia/COPD Subjective: Patient was seen and examined. She remains on Airvo. Still hypoxic. No other acute events overnight. Objective: Physical exam: General: Alert, Cooperative, No apparent distress, on Airvo HEENT: Atraumatic, Normocephalic Oral: No Gingival or Mucosal Lesions/ Ulcerations Neck: Supple, No Nodes, Trachea Midline Lungs: Diminished Cardiovascular: Regular rate, Regular Rhythm Abdomen: Bowel Sounds Present, Soft, Non Tender Extremities: No clubbing, No cyanosis, No edema Skin: No breakdown Musculoskeletal: No Tenderness to Palpation of Joints or Extremities Lymphatic: No Cervical, Supraclavicular, or Inguinal Adenopathy Neurological: Cranial nerves II-XII grossly intact, Neuro grossly intact Psych/Mental Status: Normal Affect, Appropriate Vitals/I&O's: Vital Signs Temp Pulse Resp BP Pulse Ox 98.3 F 83 19 H 107/94 H 96 10/09/20 04:00 10/09/20 05:02 10/09/20 05:02 10/09/20 04:00 10/09/20 05:02 Oxygen Flow Rate (L/min) 60 Oxygen Delivery Method Bi-pap Weight: 50.5 kg Body Mass Index (BMI) 19.7 Intake and Output for Last 24 Hours 10/07/20 10/08/20 10/09/20 23:59 23:59 23:59 Intake Total 550 / 550 240 / 240 0 / 0 Output Total 375 / 675 500 / 925 425 / 425 Balance 175 / -125 -260 / -685 -425 / -425 Laboratory Results 10/08/20 13:50: WBC 15.7 H, RBC 3.59 L, Hgb 11.5 L, Hct 37.2, MCV 103.6 H, MCH 32.0, MCHC 30.9 L, RDW Std Deviation 56.3 H, RDW Coeff of Linette 14.9 H, Plt Count 313, MPV 10.8, Immature Gran % (Auto) 1.800 H, Neut % (Auto) 83.1 H, Lymph % (Auto) 6.9 L, [place] % (Auto) 5.9, Eos % (Auto) 2.0, Baso % (Auto) 0.3, Absolute Neuts (auto) 13.1 H, Absolute Lymphs (auto) 1.08, Nucleated RBC % 0 10/08/20 13:50: Sodium 138, Potassium 3.7, Chloride 98, Carbon Dioxide 36.0 H, Anion Gap 4 L, BUN 42 H, Creatinine 1.53 H, Estim Creat Clear Calc 22.99, Est GFR (MDRD) Af Amer 42 L, Est GFR (MDRD) Non-Af 35 L, BUN/Creatinine Ratio 27.5 H, Glucose 146 H, Calcium 10.8 H, Total Bilirubin 0.40, AST 19, ALT 20, Alkaline Phosphatase 68, Total Protein 6.9, Albumin 2.5 L, Globulin 4.4 H, Albumin/Globulin Ratio 0.6 L 10/09/20 05:35: WBC 14.3 H, RBC 3.40 L, Hgb 11.0 L, Hct 35.1 L, MCV 103.2 H, MCH 32.4 H, MCHC 31.3 L, RDW Std Deviation 55.8 H, RDW Coeff of Linette 14.7 H, Plt Count 278, MPV 11.2, Immature Gran % (Auto) 1.600 H, Neut % (Auto) 81.9 H, Lymph % (Auto) 7.1 L, [place] % (Auto) 6.7, Eos % (Auto) 2.3, Baso % (Auto) 0.4, Absolute Neuts (auto) 11.7 H, Absolute Lymphs (auto) 1.01, Nucleated RBC % 0 10/09/20 05:35: Sodium 139, Potassium 4.0, Chloride 100, Carbon Dioxide 37.0 H, Anion Gap 2 L, BUN 38 H, Creatinine 1.55 H, Estim Creat Clear Calc 22.69, Est GFR (MDRD) Af Amer 41 L, Est GFR (MDRD) Non-Af 34 L, BUN/Creatinine Ratio 24.5 H, Glucose 110 H, Calcium 10.9 H, Total Bilirubin 0.60, AST 17, ALT 17, Alkaline Phosphatase 66, Total Protein 6.5, Albumin 2.4 L, Globulin 4.1, Albumin/Globulin Ratio 0.6 L Current Medications Acetaminophen (Acetaminophen 500 Mg Tablet) 1,000 mg PO Q8H PRN PRN Reason: Pain 1-10 or Fever Last Admin: 10/06/20 14:30 Dose: 1,000 mg Documented by: Albuterol Sulfate (Albuterol Sulfate 18 Gm Inhaler (200 Puffs)) 2 puff IH Q2H PRN PRN PRN Reason: SHORTNESS OF BREATH Albuterol/Ipratropium (Ipratropium/Albuterol Sulfate 3 Ml Ampul.Neb) 3 ml INHALATION Q4HWA.RT [facility] Last Admin: 10/09/20 07:14 Dose: 3 ml Documented by: Aspirin (Aspirin 81 Mg Tab.Chew) 81 mg PO DAILY [facility] Last Admin: 10/08/20 10:21 Dose: 81 mg Documented by: Atorvastatin Calcium (Atorvastatin Calcium 40 Mg Tablet) 40 mg PO DAILY@2200 [facility] Last Admin: 10/08/20 20:09 Dose: 40 mg Documented by: Budesonide (Budesonide Respules 0.5 Mg/2 Ml Ampul.Neb.) 0.5 mg INHALATION Q12H.RT [facility] Last Admin: 10/09/20 07:14 Dose: 0.5 mg Documented by: Buspirone HCl (Buspirone 15 Mg Tablet) 15 mg PO DAILY [facility] Last Admin: 10/08/20 10:21 Dose: 15 mg Documented by: Calcium Carbonate (Calcium (Elemental) 500 Mg Tablet) 500 mg PO BID [facility] Last Admin: 10/08/20 20:10 Dose: 500 mg Documented by: Enoxaparin Sodium (Enoxaparin 30 Mg/0.3 Ml Syringe) 30 mg SC DAILY [facility] Famotidine (Famotidine 20 Mg Tablet) 20 mg PO DAILY [facility] Last Admin: 10/08/20 10:21 Dose: 20 mg Documented by: Fluticasone Propionate (Fluticasone 0.05% 1 [place] Nasal.Sry) 1 spray NASAL BID [facility] Last Admin: 10/08/20 20:16 Dose: 1 spray Documented by: Sodium Chloride () 250 mls @ 15 mls/hr IV .[id number] PRN PRN Reason: Saline Flush Last Infusion: 10/09/20 07:24 Dose: Infused Documented by: Sodium Chloride () 250 mls @ 15 mls/hr IV .[id number] PRN PRN Reason: Additional IVPB Infusion Isosorbide Mononitrate (Isosorbide Mononitrate 30 Mg Tablet) 30 mg PO DAILY [facility] Last Admin: 10/08/20 10:21 Dose: 30 mg Documented by: Lactobacillus Acidophilus (Lactobacillus Acidophilus) 1 tablet PO DAILY [facility] Last Admin: 10/08/20 10:20 Dose: 1 tablet Documented by: Lorazepam (Lorazepam 0.5 Mg Tablet) 0.5 mg PO Q6H PRN PRN PRN Reason: ANXIETY Last Admin: 10/01/20 20:47 Dose: 0.5 mg Documented by: Magnesium Chloride (Magnesium Chloride 64 Mg Delay Rel.Tablet) 64 mg PO BID [facility] Last Admin: 10/08/20 20:10 Dose: 64 mg Documented by: Miscellaneous Information (Inhaler, Assist Devices 1 Each Spacer) 0 each INHALATION PRN PRN PRN Reason: WITH INHALER Multivitamins (Multivitamins,Therapeutic Tablet) 1 tablet PO DAILY [facility] Last Admin: 10/08/20 10:21 Dose: 1 tablet Documented by: Nystatin (Nystatin 500,000 Unit/5 Ml Udc) 500,000 unit PO 4X/DAY [facility] Last Admin: 10/08/20 20:09 Dose: 500,000 unit Documented by: Paroxetine HCl (Paroxetine Cr 12.5 Mg Tablet) 37.5 mg PO DAILY [facility] Last Admin: 10/08/20 10:21 Dose: 37.5 mg Documented by: Polyethylene Glycol (Polyethylene Glycol 3350 17 Gm Packet) 17 gm PO DAILY [facility] Last Admin: 10/08/20 10:22 Dose: 17 gm Documented by: Ramipril (Ramipril 10 Mg Capsule) 10 mg PO DAILY [facility] Last Admin: 10/08/20 10:21 Dose: 10 mg Documented by: Sodium Chloride (0.9% Saline Lock 10 Ml Syringe) 10 - 40 ml IV UD PRN PRN Reason: SALINE FLUSH Last Admin: 10/07/20 21:12 Dose: 10 ml Documented by: Sodium Chloride (Sodium Chloride 0.65% 1 [place].Btl) 2 spray NASAL BID PRN PRN PRN Reason: NASAL DRYNESS Last Admin: 10/03/20 20:53 Dose: 2 spray Documented by: STROKE Vital Signs/Narrative: Vital Signs Temp Pulse Resp BP Pulse Ox 10/09/20 05:02 83 19 H 96 10/09/20 04:00 98.3 F 81 18 107/94 H 95 Medical Necessity - Tobacco Use Smoking Status: Former smoker Assessment/Plan All Active Problems (Last Reviewed 09/27/20 @ 13:[address] Ean Chirinos, DO) COVID-19 (Acute) Pneumonia (Acute) Pulmonary edema (Resolved) Pneumonia (Resolved) Physical debility (Acute) Dehydration (Acute) Tachycardia (Acute) 1. Acute hypoxic respiratory failure secondary to acute Covid- 19 pneumonia, remains still on high amounts of oxygen Continue with breathing treatments, encourage use of incentive spirometer. Wean off oxygen for SPO2 more than 94% 2. Acute COVID-19 pneumonia with hypoxia CTA of the chest was negative for acute PE Off dexamethasone, breathing treatments Continue to hold Lasix for now 3. Acute COPD/bronchiectasis exacerbation, improved Continue management as in #1, Continue on Decadron, breathing treatments 4. Hypertension/hyperlipidemia, all remain stable Continue on atorvastatin, isosorbide, ramipril 5. 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 DVT prophylaxis with Lovenox subcu Inpatient E&M: 76226 Subs Hosp L3
[2020-10-09] MEDS: Magnesium Chloride 64 MG Delay Rel.Tablet PO ×2 (09:23→22:14)
[2020-10-09] MEDS: PARoxetine CR 12.5 MG Tablet 37.5 MG PO (09:23)
[2020-10-09] MEDS: Polyethylene Glycol 3350 17 GM PACKET PO (09:23)
[2020-10-09] MEDS: Multivitamins,Therapeutic Tablet 1 TABLET PO (09:23)
[2020-10-09] MEDS: Isosorbide Mononitrate 30 MG Tablet PO (09:23)
[2020-10-09] MEDS: Aspirin 81 MG TAB.CHEW PO (09:23)
[2020-10-09] MEDS: Ramipril 10 MG Capsule PO (09:23)
[2020-10-09] MEDS: busPIRone 15 MG TABLET PO (09:23)
[2020-10-09] MEDS: Calcium (Elemental) 500 MG Tablet PO ×2 (09:23→22:14)
[2020-10-09] MEDS: NYSTATIN 500,000 UNIT/5 ML UDC 500000 UNIT PO ×4 (09:23→22:14)
[2020-10-09] MEDS: Enoxaparin 30 MG/0.3 ML Syringe SC (09:23)
[2020-10-09] MEDS: Famotidine 20 MG Tablet PO (09:23)
[2020-10-09] MEDS: Fluticasone 0.05% 1 SPRAY NASAL.SRY NASAL ×2 (09:24→22:13)
--- NOTE | 2020-10-09 10:12 | PCM.PN.PUL ---
Patient Problems: Active and Suspected Problems (Last Reviewed 09/27/20 @ 13:[address] Ean Chirinos, DO) COVID-19 (Acute) Pneumonia (Acute) Subjective: Patient did well overnight. Patient was able to be on Airvo this morning during my evaluation. Patient slept on BiPAP and tolerated well. Patient states she feels subjectively unchanged compared to previous. - Physical Exam Vitals/I&O's: Vital Signs Temp Pulse Resp BP Pulse Ox 36.6 C 87 18 107/63 90 10/09/20 09:18 10/09/20 09:18 10/09/20 09:18 10/09/20 09:18 10/09/20 09:18 Oxygen Flow Rate (L/min) 60 Oxygen Delivery Method Airvo Weight: 50.5 kg Body Mass Index (BMI) 19.7 Intake and Output for Last 24 Hours 10/07/20 10/08/20 10/09/20 23:59 23:59 23:59 Intake Total 550 / 550 240 / 240 0 / 0 Output Total 375 / 675 500 / 925 425 / 425 Balance 175 / -125 -260 / -685 -425 / -425 General: Alert, Oriented x3, Cooperative, - - Mild conversational dyspnea. Frail-appearing. HEENT: Atraumatic, PERRLA, EOMI, Normocephalic, - - No scleral icterus or injection noted Oral: Moist Mucosa, No Gingival or Mucosal Lesions/ Ulcerations Neck: Supple, No JVD, No Nodes, Trachea Midline Lungs: No rhonchi, No wheeze, No rales, Diminished Cardiovascular: Regular rate, Regular Rhythm, Normal S1, Normal S2, No murmurs, No rub noted, No Gallop Abdomen: Bowel Sounds Present, Soft, Non Tender, Non-Distended Extremities: No clubbing, No cyanosis Skin: - - No change from previous. No signs of breakdown related to BiPAP Musculoskeletal: No Tenderness to Palpation of Joints or Extremities Lymphatic: No Cervical, Supraclavicular, or Inguinal Adenopathy Neurological: Cranial nerves II-XII grossly intact, Neuro grossly intact, Motor Exam 5/5 strength throughout Psych/Mental Status: Normal Affect, Appropriate Laboratory Results 10/08/20 13:50: WBC 15.7 H, RBC 3.59 L, Hgb 11.5 L, Hct 37.2, MCV 103.6 H, MCH 32.0, MCHC 30.9 L, RDW Std Deviation 56.3 H, RDW Coeff of Linette 14.9 H, Plt Count 313, MPV 10.8, Immature Gran % (Auto) 1.800 H, Neut % (Auto) 83.1 H, Lymph % (Auto) 6.9 L, Harney % (Auto) 5.9, Eos % (Auto) 2.0, Baso % (Auto) 0.3, Absolute Neuts (auto) 13.1 H, Absolute Lymphs (auto) 1.08, Nucleated RBC % 0 10/08/20 13:50: Sodium 138, Potassium 3.7, Chloride 98, Carbon Dioxide 36.0 H, Anion Gap 4 L, BUN 42 H, Creatinine 1.53 H, Estim Creat Clear Calc 22.99, Est GFR (MDRD) Af Amer 42 L, Est GFR (MDRD) Non-Af 35 L, BUN/Creatinine Ratio 27.5 H, Glucose 146 H, Calcium 10.8 H, Total Bilirubin 0.40, AST 19, ALT 20, Alkaline Phosphatase 68, Total Protein 6.9, Albumin 2.5 L, Globulin 4.4 H, Albumin/Globulin Ratio 0.6 L 10/09/20 05:35: WBC 14.3 H, RBC 3.40 L, Hgb 11.0 L, Hct 35.1 L, MCV 103.2 H, MCH 32.4 H, MCHC 31.3 L, RDW Std Deviation 55.8 H, RDW Coeff of Linette 14.7 H, Plt Count 278, MPV 11.2, Immature Gran % (Auto) 1.600 H, Neut % (Auto) 81.9 H, Lymph % (Auto) 7.1 L, Harney % (Auto) 6.7, Eos % (Auto) 2.3, Baso % (Auto) 0.4, Absolute Neuts (auto) 11.7 H, Absolute Lymphs (auto) 1.01, Nucleated RBC % 0 10/09/20 05:35: Sodium 139, Potassium 4.0, Chloride 100, Carbon Dioxide 37.0 H, Anion Gap 2 L, BUN 38 H, Creatinine 1.55 H, Estim Creat Clear Calc 22.69, Est GFR (MDRD) Af Amer 41 L, Est GFR (MDRD) Non-Af 34 L, BUN/Creatinine Ratio 24.5 H, Glucose 110 H, Calcium 10.9 H, Total Bilirubin 0.60, AST 17, ALT 17, Alkaline Phosphatase 66, Total Protein 6.5, Albumin 2.4 L, Globulin 4.1, Albumin/Globulin Ratio 0.6 L Current Medications Acetaminophen (Acetaminophen 500 Mg Tablet) 1,000 mg PO Q8H PRN PRN Reason: Pain 1-10 or Fever Last Admin: 10/06/20 14:30 Dose: 1,000 mg Documented by: Albuterol Sulfate (Albuterol Sulfate 18 Gm Inhaler (200 Puffs)) 2 puff IH Q2H PRN PRN PRN Reason: SHORTNESS OF BREATH Albuterol/Ipratropium (Ipratropium/Albuterol Sulfate 3 Ml Ampul.Neb) 3 ml INHALATION Q4HWA.RT [facility] Last Admin: 10/09/20 07:14 Dose: 3 ml Documented by: Aspirin (Aspirin 81 Mg Tab.Chew) 81 mg PO DAILY [facility] Last Admin: 10/09/20 09:23 Dose: 81 mg Documented by: Atorvastatin Calcium (Atorvastatin Calcium 40 Mg Tablet) 40 mg PO DAILY@2200 [facility] Last Admin: 10/08/20 20:09 Dose: 40 mg Documented by: Budesonide (Budesonide Respules 0.5 Mg/2 Ml Ampul.Neb.) 0.5 mg INHALATION Q12H.RT [facility] Last Admin: 10/09/20 07:14 Dose: 0.5 mg Documented by: Buspirone HCl (Buspirone 15 Mg Tablet) 15 mg PO DAILY [facility] Last Admin: 10/09/20 09:23 Dose: 15 mg Documented by: Calcium Carbonate (Calcium (Elemental) 500 Mg Tablet) 500 mg PO BID [facility] Last Admin: 10/09/20 09:23 Dose: 500 mg Documented by: Enoxaparin Sodium (Enoxaparin 30 Mg/0.3 Ml Syringe) 30 mg SC DAILY [facility] Last Admin: 10/09/20 09:23 Dose: 30 mg Documented by: Famotidine (Famotidine 20 Mg Tablet) 20 mg PO DAILY [facility] Last Admin: 10/09/20 09:23 Dose: 20 mg Documented by: Fluticasone Propionate (Fluticasone 0.05% 1 [place] Nasal.Sry) 1 spray NASAL BID [facility] Last Admin: 10/09/20 09:24 Dose: 1 spray Documented by: Sodium Chloride () 250 mls @ 15 mls/hr IV .[id number] PRN PRN Reason: Saline Flush Last Infusion: 10/09/20 07:24 Dose: Infused Documented by: Sodium Chloride () 250 mls @ 15 mls/hr IV .[id number] PRN PRN Reason: Additional IVPB Infusion Isosorbide Mononitrate (Isosorbide Mononitrate 30 Mg Tablet) 30 mg PO DAILY [facility] Last Admin: 10/09/20 09:23 Dose: 30 mg Documented by: Lactobacillus Acidophilus (Lactobacillus Acidophilus) 1 tablet PO DAILY [facility] Last Admin: 10/09/20 09:23 Dose: 1 tablet Documented by: Lorazepam (Lorazepam 0.5 Mg Tablet) 0.5 mg PO Q6H PRN PRN PRN Reason: ANXIETY Last Admin: 10/01/20 20:47 Dose: 0.5 mg Documented by: Magnesium Chloride (Magnesium Chloride 64 Mg Delay Rel.Tablet) 64 mg PO BID [facility] Last Admin: 10/09/20 09:23 Dose: 64 mg Documented by: Miscellaneous Information (Inhaler, Assist Devices 1 Each Spacer) 0 each INHALATION PRN PRN PRN Reason: WITH INHALER Multivitamins (Multivitamins,Therapeutic Tablet) 1 tablet PO DAILY [facility] Last Admin: 10/09/20 09:23 Dose: 1 tablet Documented by: Nystatin (Nystatin 500,000 Unit/5 Ml Udc) 500,000 unit PO 4X/DAY [facility] Last Admin: 10/09/20 09:23 Dose: 500,000 unit Documented by: Paroxetine HCl (Paroxetine Cr 12.5 Mg Tablet) 37.5 mg PO DAILY [facility] Last Admin: 10/09/20 09:23 Dose: 37.5 mg Documented by: Polyethylene Glycol (Polyethylene Glycol 3350 17 Gm Packet) 17 gm PO DAILY [facility] Last Admin: 10/09/20 09:23 Dose: 17 gm Documented by: Ramipril (Ramipril 10 Mg Capsule) 10 mg PO DAILY [facility] Last Admin: 10/09/20 09:23 Dose: 10 mg Documented by: Sodium Chloride (0.9% Saline Lock 10 Ml Syringe) 10 - 40 ml IV UD PRN PRN Reason: SALINE FLUSH Last Admin: 10/07/20 21:12 Dose: 10 ml Documented by: Sodium Chloride (Sodium Chloride 0.65% 1 [place].Btl) 2 spray NASAL BID PRN PRN PRN Reason: NASAL DRYNESS Last Admin: 10/03/20 20:53 Dose: 2 spray Documented by: Medical Necessity - Tobacco Use Smoking Status: Former smoker Assessment/Plan All Active Problems (Last Reviewed 09/27/20 @ 13:[address] Ean Chirinos, DO) COVID-19 (Acute) Pneumonia (Acute) Pulmonary edema (Resolved) Pneumonia (Resolved) Physical debility (Acute) Dehydration (Acute) Tachycardia (Acute) RECOMMENDATIONS: 1. Continue supplemental oxygen and wean FiO2 to maintain saturations at or above 90%. 2. Continue Decadron to complete 10-day treatment course. 3. Continue scheduled bronchodilator and inhaled corticosteroid therapy. Resume triple therapy inhaler regimen at discharge. 4. Encourage incentive spirometer use and mobilize patient as tolerated. 5. Continue diuretic regimen as tolerated by hemodynamics and renal function. Given increase in creatinine, will continue to hold Lasix. 6. Continue to monitor renal function closely 7. Okay to proceed with LTAC evaluation from my perspective IMPRESSIONS: 1. Acute on chronic hypoxemic respiratory failure secondary to COVID-19 pneumonia The patient does have baseline severe COPD based upon pulmonary function studies from March 2020. She has completed her treatment course of remdesivir and remains on Decadron. I would also advise continuing scheduled bronchodilator therapy as ordered. The patient will be continued on Airvo heated high flow oxygen with plans to wean FiO2 to maintain saturations at or above 90%. Encourage incentive spirometer use and mobilize patient as tolerated. There is no evidence of pulmonary embolism identified on CTA chest. Diuretics will be held secondary to renal function. This has to be assessed on a daily basis. We will need to follow-up on morning labs when available. Unclear how well patient will tolerate diuretic therapy to achieve better oxygenation. Anticipate protracted course and did discuss with the patient about a possible LTAC transfer. Patient appears to be relatively open to this option if deemed necessary. 2. Recent hip surgery/advanced age/hypertension/hyperlipidemia/anxiety Complicates care, management, recovery and prognosis. Continue home medications as indicated. Inpatient E&M: [id number] [facility] [[email or web address]] Hosp L2
--- NOTE | 2020-10-09 14:35 | CASEMGMT ---
Addendum entered by Miladys Garza 10/09/20 16:30: 1520: DIANE SAUL NOTE: Call received from pt's daughter, Piper, to inquire about LTAC/Bed availability. She was made aware [facility] may have a bed available in the next couple of days and that pt is on the waiting list. Kyleigh MCRAE RN, CM Original Note: DIANE SAUL NOTE; Spoke w/Annie @ [facility]. She states they may have a bed available in the next couple of days. She was made aware pt is currently tolerating Airvo w/O2 @ 60. Kyleigh MCRAE RN, CM
[2020-10-09] MEDS: Atorvastatin Calcium 40 MG Tablet PO (22:14)
[2020-10-10] VITALS (20 sets, daily range): BP systolic 82–134; BP diastolic 46–75; PULSE 83–115; RESP 12–29; TEMP 36.2–36.9; O2SAT 79–97
[2020-10-10] MEDS: Budesonide Respules 0.5 MG/2 ML AMPUL.NEB. INHALATION (07:45)
[2020-10-10] MEDS: Ipratropium/Albuterol Sulfate 3 ML AMPUL.NEB INHALATION ×4 (07:45→19:47)
[2020-10-10] MEDS: busPIRone 15 MG TABLET PO (09:02)
[2020-10-10] MEDS: Multivitamins,Therapeutic Tablet 1 TABLET PO (09:02)
[2020-10-10] MEDS: Famotidine 20 MG Tablet PO (09:02)
[2020-10-10] MEDS: Calcium (Elemental) 500 MG Tablet PO (09:02)
[2020-10-10] MEDS: NYSTATIN 500,000 UNIT/5 ML UDC 500000 UNIT PO (09:02)
[2020-10-10] MEDS: Polyethylene Glycol 3350 17 GM PACKET PO (09:02)
[2020-10-10] MEDS: Isosorbide Mononitrate 30 MG Tablet PO (09:02)
[2020-10-10] MEDS: Enoxaparin 30 MG/0.3 ML Syringe SC (09:02)
[2020-10-10] MEDS: Fluticasone 0.05% 1 SPRAY NASAL.SRY NASAL ×2 (09:03→20:14)
[2020-10-10] MEDS: Magnesium Chloride 64 MG Delay Rel.Tablet PO (09:03)
[2020-10-10] MEDS: Ramipril 10 MG Capsule PO (09:03)
[2020-10-10] MEDS: Aspirin 81 MG TAB.CHEW PO (09:03)
[2020-10-10] MEDS: PARoxetine CR 12.5 MG Tablet 37.5 MG PO (09:04)
[2020-10-10] MEDS: LORazepam 0.5 MG Tablet PO (12:27)
[2020-10-10 12:44] LABS: Anion Gap 3 (5-15); BUN 37 mg/dL (7-18); BUN/Creat Ratio 22.4 RATIO (10-20); Calcium,Total 10.7 mg/dL (8.5-10.1); Chloride 99 mmol/L (98-107); Creatinine, Serum 1.65 mg/dL (0.55-1.02); EST Glomerular Filtration Rate 32 mL/min (>60); Est Glom Filt Rate - Afr Amer 39 mL/min (>60); Estimated Creatinine Clearance 21.32 ml/min; Glucose 124 mg/dL (74-106); Magnesium 2.7 mg/dL (1.6-2.6); Potassium 3.7 mmol/L (3.5-5.1); Sodium Level 139 mmol/L (136-145)
--- NOTE | 2020-10-10 13:09 | PN_ITS ---
Patient Problems: Active and Suspected Problems (Last Reviewed 09/27/20 @ 13:[address] Ean Chirinos, DO) COVID-19 (Acute) Pneumonia (Acute) Subjective: Patient with worsening hypoxia over the last 24 to 48 hours. Patient is reporting more dyspnea also. Patient is not reporting any significant cough production. No chest pain is reported. - Physical Exam Vitals/I&O's: Vital Signs Temp Pulse Resp BP Pulse Ox 36.2 C L 108 H 16 134/67 H 79 10/10/20 12:03 10/10/20 12:33 10/10/20 12:03 10/10/20 12:03 10/10/20 12:33 Oxygen Flow Rate (L/min) 50 Oxygen Delivery Method Airvo Weight: 50.5 kg Body Mass Index (BMI) 19.7 Intake and Output for Last 24 Hours 10/08/20 10/09/20 10/10/20 23:59 23:59 23:59 Intake Total 240 / 240 700 / 700 Output Total 500 / 925 775 / 775 400 / 400 Balance -260 / -685 -75 / -75 -400 / -400 General: Alert, Oriented x3, Cooperative, - - Moderate distress on BiPAP therapy. Frail appearance. HEENT: Atraumatic, PERRLA, EOMI, Normocephalic, - - No scleral icterus or injection noted Oral: Moist Mucosa, No Gingival or Mucosal Lesions/ Ulcerations Neck: Supple, No JVD, No Nodes, Trachea Midline Lungs: No rhonchi, No wheeze, No rales, Diminished Cardiovascular: Normal S1, Normal S2, No murmurs, No rub noted, No Gallop, Tachycardic Abdomen: Bowel Sounds Present, Soft, Non Tender, Non-Distended Extremities: No clubbing, No cyanosis, Edema Skin: - - No change compared to previous Musculoskeletal: No Tenderness to Palpation of Joints or Extremities, No Muscle Wasting Lymphatic: No Cervical, Supraclavicular, or Inguinal Adenopathy Neurological: Cranial nerves II-XII grossly intact, Neuro grossly intact Psych/Mental Status: Alert and oriented to time, place, person, mood and affect Laboratory Results 10/10/20 09:20: Sodium 139, Potassium 3.7, Chloride 99, Carbon Dioxide 37.0 H, Anion Gap 3 L, BUN 37 H, Creatinine 1.65 H, Estim Creat Clear Calc 21.32, Est GFR (MDRD) Af Amer 39 L, Est GFR (MDRD) Non-Af 32 L, BUN/Creatinine Ratio 22.4 H , Glucose 124 H, Calcium 10.7 H, Magnesium 2.7 H Current Medications Acetaminophen (Acetaminophen 500 Mg Tablet) 1,000 mg PO Q8H PRN PRN Reason: Pain 1-10 or Fever Last Admin: 10/06/20 14:30 Dose: 1,000 mg Documented by: Albuterol Sulfate (Albuterol Sulfate 18 Gm Inhaler (200 Puffs)) 2 puff IH Q2H PRN PRN PRN Reason: SHORTNESS OF BREATH Albuterol/Ipratropium (Ipratropium/Albuterol Sulfate 3 Ml Ampul.Neb) 3 ml INHALATION Q4HWA.RT [facility] Last Admin: 10/10/20 11:00 Dose: 3 ml Documented by: Aspirin (Aspirin 81 Mg Tab.Chew) 81 mg PO DAILY [facility] Last Admin: 10/10/20 09:03 Dose: 81 mg Documented by: Atorvastatin Calcium (Atorvastatin Calcium 40 Mg Tablet) 40 mg PO DAILY@2200 [facility] Last Admin: 10/09/20 22:14 Dose: 40 mg Documented by: Budesonide (Budesonide Respules 0.5 Mg/2 Ml Ampul.Neb.) 0.5 mg INHALATION Q12H.RT [facility] Last Admin: 10/10/20 07:45 Dose: 0.5 mg Documented by: Buspirone HCl (Buspirone 15 Mg Tablet) 15 mg PO DAILY [facility] Last Admin: 10/10/20 09:02 Dose: 15 mg Documented by: Calcium Carbonate (Calcium (Elemental) 500 Mg Tablet) 500 mg PO BID [facility] Last Admin: 10/10/20 09:02 Dose: 500 mg Documented by: Enoxaparin Sodium (Enoxaparin 30 Mg/0.3 Ml Syringe) 30 mg SC DAILY [facility] Last Admin: 10/10/20 09:02 Dose: 30 mg Documented by: Famotidine (Famotidine 20 Mg Tablet) 20 mg PO DAILY [facility] Last Admin: 10/10/20 09:02 Dose: 20 mg Documented by: Fluticasone Propionate (Fluticasone 0.05% 1 [place] Nasal.Sry) 1 spray NASAL BID [facility] Last Admin: 10/10/20 09:03 Dose: 1 spray Documented by: Sodium Chloride () 250 mls @ 15 mls/hr IV .[id number] PRN PRN Reason: Saline Flush Last Infusion: 10/09/20 07:24 Dose: Infused Documented by: Sodium Chloride () 250 mls @ 15 mls/hr IV .[id number] PRN PRN Reason: Additional IVPB Infusion Isosorbide Mononitrate (Isosorbide Mononitrate 30 Mg Tablet) 30 mg PO DAILY [facility] Last Admin: 10/10/20 09:02 Dose: 30 mg Documented by: Lactobacillus Acidophilus (Lactobacillus Acidophilus) 1 tablet PO DAILY [facility] Last Admin: 10/10/20 09:03 Dose: 1 tablet Documented by: Lorazepam (Lorazepam 0.5 Mg Tablet) 0.5 mg PO Q6H PRN PRN PRN Reason: ANXIETY Last Admin: 10/10/20 12:27 Dose: 0.5 mg Documented by: Magnesium Chloride (Magnesium Chloride 64 Mg Delay Rel.Tablet) 64 mg PO BID [facility] Last Admin: 10/10/20 09:03 Dose: 64 mg Documented by: Miscellaneous Information (Inhaler, Assist Devices 1 Each Spacer) 0 each INHALATION PRN PRN PRN Reason: WITH INHALER Multivitamins (Multivitamins,Therapeutic Tablet) 1 tablet PO DAILY [facility] Last Admin: 10/10/20 09:02 Dose: 1 tablet Documented by: Nystatin (Nystatin 500,000 Unit/5 Ml Udc) 500,000 unit PO 4X/DAY [facility] Last Admin: 10/10/20 09:02 Dose: 500,000 unit Documented by: Paroxetine HCl (Paroxetine Cr 12.5 Mg Tablet) 37.5 mg PO DAILY [facility] Last Admin: 10/10/20 09:04 Dose: 37.5 mg Documented by: Polyethylene Glycol (Polyethylene Glycol 3350 17 Gm Packet) 17 gm PO DAILY [facility] Last Admin: 10/10/20 09:02 Dose: 17 gm Documented by: Ramipril (Ramipril 10 Mg Capsule) 10 mg PO DAILY [facility] Last Admin: 10/10/20 09:03 Dose: 10 mg Documented by: Sodium Chloride (0.9% Saline Lock 10 Ml Syringe) 10 - 40 ml IV UD PRN PRN Reason: SALINE FLUSH Last Admin: 10/07/20 21:12 Dose: 10 ml Documented by: Sodium Chloride (Sodium Chloride 0.65% 1 [place].Btl) 2 spray NASAL BID PRN PRN PRN Reason: NASAL DRYNESS Last Admin: 10/03/20 20:53 Dose: 2 spray Documented by: Medical Necessity - Tobacco Use Smoking Status: Former smoker Assessment/Plan All Active Problems (Last Reviewed 09/27/20 @ 13:[address] Ean Chirinos, DO) COVID-19 (Acute) Pneumonia (Acute) Pulmonary edema (Resolved) Pneumonia (Resolved) Physical debility (Acute) Dehydration (Acute) Tachycardia (Acute) RECOMMENDATIONS: 1. Continue supplemental oxygen and wean FiO2 to maintain saturations at or above 90%. 2. Continue Decadron to complete 10-day treatment course. 3. Continue scheduled bronchodilator and inhaled corticosteroid therapy. Resume triple therapy inhaler regimen at discharge. 4. Encourage incentive spirometer use and mobilize patient as tolerated. 5. Continue diuretic regimen as tolerated by hemodynamics and renal function. Given increase in creatinine, will continue to hold Lasix. 6. Obtain chest x-ray 7. Okay to proceed with LTAC evaluation from my perspective IMPRESSIONS: 1. Acute on chronic hypoxemic respiratory failure secondary to COVID-19 pneumonia The patient does have baseline severe COPD based upon pulmonary function studies from March 2020. She has completed her treatment course of remdesivir and remains on Decadron. I would also advise continuing scheduled bron chodilator therapy as ordered. The patient will be continued on Airvo heated high flow oxygen with plans to wean FiO2 to maintain saturations at or above 90%. Encourage incentive spirometer use and mobilize patient as tolerated. There is no evidence of pulmonary embolism identified on CTA chest. Patient's renal function continues to deteriorate despite holding Lasix. Given hypoxia and increased oxygen demands, mucous plug would be a concern. Will obtain a chest x-ray for evaluation of lobar collapse. 2. Recent hip surgery/advanced age/hypertension/hyperlipidemia/anxiety Complicates care, management, recovery and prognosis. Continue home medications as indicated. Inpatient E&M: [id number] [facility] Hosp L3
--- NOTE | 2020-10-10 13:37 | PCM.PN.HOSP ---
Patient Problems: Active and Suspected Problems (Last Reviewed 09/27/20 @ 13:[address] Ean Chirinos, DO) COVID-19 (Acute) Pneumonia (Acute) Subjective: Remains on Airvo and BiPAP at significantly elevated levels of oxygen- current FiO2 is 80%. Worsening oxygenation status over the last 24 hours. Patient is currently on BiPAP and looks like she is struggling a bit she is and saturations are stable on 80% at 95 to 96%. Vitals/I&O's: Vital Signs Temp Pulse Resp BP Pulse Ox 97.2 F L 108 H 16 134/67 H 79 10/10/20 12:03 10/10/20 12:33 10/10/20 12:03 10/10/20 12:03 10/10/20 12:33 Oxygen Flow Rate (L/min) 50 Oxygen Delivery Method Airvo Weight: 50.5 kg Body Mass Index (BMI) 19.7 Intake and Output for Last 24 Hours 10/08/20 10/09/20 10/10/20 23:59 23:59 23:59 Intake Total 240 / 240 700 / 700 Output Total 500 / 925 775 / 775 400 / 400 Balance -260 / -685 -75 / -75 -400 / -400 General: Alert, Cooperative, - - Mild respiratory distress on noninvasive ventilation, thin elderly woman appears older than stated age HEENT: Atraumatic, PERRLA, EOMI, Normocephalic, EAC Clear Oral: No Gingival or Mucosal Lesions/ Ulcerations, Dry Mucosa, - - Dentulous Neck: Supple, No Nodes, Trachea Midline, Thyroid Normal Size and Texture Lungs: No rhonchi, No wheeze, Diminished - Diffusely, Rales - Lateral bases Cardiovascular: Regular rate, Regular Rhythm, Normal S1, Normal S2, No murmurs, No Ectopic Activity, No rub noted, No Gallop, - - Stent Abdomen: Bowel Sounds Present, Soft, Non Tender, Non-Distended, - - Thin Extremities: No clubbing, No cyanosis, No edema, Capillary Refill Less than 3 Seconds, No Calf Tenderness, Peripheral Pulses Normal Skin: No rashes, No breakdown, - - Pale Musculoskeletal: Arthritic Changes, Cachexia, - - Decrease lean body mass Lymphatic: No Cervical, Supraclavicular, or Inguinal Adenopathy Neurological: Cranial nerves II-XII grossly intact, Neuro grossly intact Psych/Mental Status: Normal Affect, Appropriate Laboratory Results 10/10/20 09:20: Sodium 139, Potassium 3.7, Chloride 99, Carbon Dioxide 37.0 H, Anion Gap 3 L, BUN 37 H, Creatinine 1.65 H, Estim Creat Clear Calc 21.32, Est GFR (MDRD) Af Amer 39 L, Est GFR (MDRD) Non-Af 32 L, BUN/Creatinine Ratio 22.4 H, Glucose 124 H, Calcium 10.7 H, Magnesium 2.7 H Current Medications Acetaminophen (Acetaminophen 500 Mg Tablet) 1,000 mg PO Q8H PRN PRN Reason: Pain 1-10 or Fever Last Admin: 10/06/20 14:30 Dose: 1,000 mg Documented by: Albuterol Sulfate (Albuterol Sulfate 18 Gm Inhaler (200 Puffs)) 2 puff IH Q2H PRN PRN PRN Reason: SHORTNESS OF BREATH Albuterol/Ipratropium (Ipratropium/Albuterol Sulfate 3 Ml Ampul.Neb) 3 ml INHALATION Q4HWA.RT [facility] Last Admin: 10/10/20 11:00 Dose: 3 ml Documented by: Aspirin (Aspirin 81 Mg Tab.Chew) 81 mg PO DAILY [facility] Last Admin: 10/10/20 09:03 Dose: 81 mg Documented by: Atorvastatin Calcium (Atorvastatin Calcium 40 Mg Tablet) 40 mg PO DAILY@2200 [facility] Last Admin: 10/09/20 22:14 Dose: 40 mg Documented by: Budesonide (Budesonide Respules 0.5 Mg/2 Ml Ampul.Neb.) 0.5 mg INHALATION Q12H.RT [facility] Last Admin: 10/10/20 07:45 Dose: 0.5 mg Documented by: Buspirone HCl (Buspirone 15 Mg Tablet) 15 mg PO DAILY [facility] Last Admin: 10/10/20 09:02 Dose: 15 mg Documented by: Calcium Carbonate (Calcium (Elemental) 500 Mg Tablet) 500 mg PO BID [facility] Last Admin: 10/10/20 09:02 Dose: 500 mg Documented by: Enoxaparin Sodium (Enoxaparin 30 Mg/0.3 Ml Syringe) 30 mg SC DAILY [facility] Last Admin: 10/10/20 09:02 Dose: 30 mg Documented by: Famotidine (Famotidine 20 Mg Tablet) 20 mg PO DAILY [facility] Last Admin: 10/10/20 09:02 Dose: 20 mg Documented by: Fluticasone Propionate (Fluticasone 0.05% 1 [place] Nasal.Sry) 1 spray NASAL BID [facility] Last Admin: 10/10/20 09:03 Dose: 1 spray Documented by: Sodium Chloride () 250 mls @ 15 mls/hr IV .[id number] PRN PRN Reason: Saline Flush Last Infusion: 10/09/20 07:24 Dose: Infused Documented by: Sodium Chloride () 250 mls @ 15 mls/hr IV .[id number] PRN PRN Reason: Additional IVPB Infusion Isosorbide Mononitrate (Isosorbide Mononitrate 30 Mg Tablet) 30 mg PO DAILY [facility] Last Admin: 10/10/20 09:02 Dose: 30 mg Documented by: Lactobacillus Acidophilus (Lactobacillus Acidophilus) 1 tablet PO DAILY [facility] Last Admin: 10/10/20 09:03 Dose: 1 tablet Documented by: Lorazepam (Lorazepam 0.5 Mg Tablet) 0.5 mg PO Q6H PRN PRN PRN Reason: ANXIETY Last Admin: 10/10/20 12:27 Dose: 0.5 mg Documented by: Magnesium Chloride (Magnesium Chloride 64 Mg Delay Rel.Tablet) 64 mg PO BID [facility] Last Admin: 10/10/20 09:03 Dose: 64 mg Documented by: Miscellaneous Information (Inhaler, Assist Devices 1 Each Spacer) 0 each INHALATION PRN PRN PRN Reason: WITH INHALER Multivitamins (Multivitamins,Therapeutic Tablet) 1 tablet PO DAILY [facility] Last Admin: 10/10/20 09:02 Dose: 1 tablet Documented by: Nystatin (Nystatin 500,000 Unit/5 Ml Udc) 500,000 unit PO 4X/DAY [facility] Last Admin: 10/10/20 09:02 Dose: 500,000 unit Documented by: Paroxetine HCl (Paroxetine Cr 12.5 Mg Tablet) 37.5 mg PO DAILY [facility] Last Admin: 10/10/20 09:04 Dose: 37.5 mg Documented by: Polyethylene Glycol (Polyethylene Glycol 3350 17 Gm Packet) 17 gm PO DAILY [facility] Last Admin: 10/10/20 09:02 Dose: 17 gm Documented by: Ramipril (Ramipril 10 Mg Capsule) 10 mg PO DAILY [facility] Last Admin: 10/10/20 09:03 Dose: 10 mg Documented by: Sodium Chloride (0.9% Saline Lock 10 Ml Syringe) 10 - 40 ml IV UD PRN PRN Reason: SALINE FLUSH Last Admin: 10/07/20 21:12 Dose: 10 ml Documented by: Sodium Chloride (Sodium Chloride 0.65% 1 [place].Btl) 2 spray NASAL BID PRN PRN PRN Reason: NASAL DRYNESS Last Admin: 10/03/20 20:53 Dose: 2 spray Documented by: STROKE Vital Signs/Narrative: Vital Signs Temp Pulse Resp BP Pulse Ox 10/10/20 12:33 108 H 79 10/10/20 12:03 97.2 F L 115 H 16 134/67 H 93 10/10/20 11:06 90 22 H Medical Necessity - Tobacco Use Smoking Status: Former smoker Assessment/Plan All Active Problems (Last Reviewed 09/27/20 @ 13:[address] Ean Chirinos, DO) COVID-19 (Acute) Pneumonia (Acute) Pulmonary edema (Resolved) Pneumonia (Resolved) Physical debility (Acute) Dehydration (Acute) Tachycardia (Acute) Acute on chronic hypoxic respiratory failure secondary to COVID-19 pneumonia -Patient is COPD at baseline -Patient's completed her courses remdesivir and Decadron -Wean oxygen as able patient is currently on Airvo with an FiO2 of 80% -Continue pulmonary toilet -Continue DVT prophylaxis -Chest x-ray shows worsening bibasilar infiltrates left is greater than right overlapping chronic scarring -Appreciate pulmonary input MARCOS -Serum creatinine has slowly risen over the past several days -Discontinue ramipril -Check UA -add some IV fluids for gentle hydration over the next 24 hours--> normal saline at 50 cc an hour -Repeat BMP in a.m. -avoid nephrotoxins Hypercalcemia -Patient is on calcium supplementation--> discontinue -If does not trend down would consider hypercalcemia work-up -Obtain ionized calcium Hyperlipidemia -Continue atorvastatin COPD -Continue oxygen supplementation as above -Continue Pulmicort -Continue pulmonary toilet Hypertension -Continue isosorbide mononitrate -Monitor with discontinuation of ramipril Depression -Continue Paxil DVT prophylaxis -Enoxaparin daily CODE STATUS -DNR CCA okay for short-term intubation Dispo -Possible LTAC discharge in the next 1 to 2 days if patient stabilizes -Patient does not stabilize may need intubation versus discussion regarding end-of-life Inpatient E&M: [id number] Subs Hosp L3
--- NOTE | 2020-10-10 13:45 | RAD_ITS ---
STUDY: X-RAY CHEST REASON FOR EXAM: Female, 79 years old. Shortness of breath, Hx COPD, hypoxia TECHNIQUE: Single AP portable view of the chest. COMPARISON: Comparison is made with prior examination dated 09/27/2020. FINDINGS: Hyperinflation. Decreased bronchovascular markings in the upper lobes worse on the right side in keeping with emphysematous change. Since prior study, there has been progressive infiltrates in both lower lobes superimposed on chronic interstitial scarring. There is blunting of the right costophrenic angle. Normal size heart. Normal mediastinum and roger. Normal visualized pulmonary arteries. There is atherosclerotic calcification of the aortic arch with tortuosity. There are degenerative changes of the visualized thoracic spine. Normal visualized ribs, clavicles, and shoulders. There is no demonstrated abnormality of the visualized soft tissue structures of the upper abdomen. RAD/Chest 1 View (Portable) IMPRESSION: Progressive bibasilar infiltrates worse on the left side superimposed on chronic scarring. Electronically Signed: Shreyas Westbrook MD at 14:12 EST , Service support ,
[2020-10-10] MEDS: 0.9% Normal Saline 1,000 ML 50 ML IV (15:20)
[2020-10-10 18:19] LABS: Color, Urine Yellow (Yellow); Glucose, Dipstick Normal (Normal); Ketone-Dipstick Negative (Negative); Leukocyte Esterase-Dipstick Negative /ul (Negative); Nitrite-Dipstick Negative (Negative); Occult Blood-Urine Negative /ul (Negative); Protein-Dipstick Negative (Negative); Specific Gravity, Urine 1.015 (1.002-1.030); Urine Bilirubin Dipstick Negative (Negative); Urine Clarity Clear (Clear); Urine Urobilinogen Normal (Normal); Urine pH 6.5 (5.0 - 8.0)
[2020-10-10] MEDS: Atorvastatin Calcium 40 MG Tablet PO (20:14)
[2020-10-11] VITALS (12 sets, daily range): BP systolic 106–115; BP diastolic 54–66; PULSE 80–98; RESP 12–29; TEMP 36.5–36.8; O2SAT 89–96
[2020-10-11 06:09] LABS: Absolute Lymphocyte Count 0.95 X10^3/uL (0.83-4.51); Absolute Neutrophil Count 11.2 X10^3/uL (2.0-7.7); Basophil# 0.05 X10^3/uL; Basophil% 0.4 % (0-1); Eosinophil# 0.19 X10^3/uL; Eosinophils% 1.4 % (0-5); Hematocrit 30.8 % (37-47); Hemoglobin 9.6 g/dL (12.0-15.0); Lymphocyte # 0.95 X10^3/ul (4.0); Mean Corp Hgb Conc 31.2 g/dL (32-36); Mean Corpuscular Hgb 32.5 pg (27.0-32.0); Mean Corpuscular Volume 104.4 fL (81-99); Mean Platelet Vol. 10.7 fl (6.2-12.0); Monocyte# 0.99 X10^3/uL; Monocyte% 7.3 % (0-10); NRBC Flagged by Analyzer 0 % (0-5); Neutrophil # 11.21 X10^3/uL (2.7-7.7); Neutrophil % 83.1 % (47-70); Platelet Count 238 K/mm3 (150-450); RBC Distribution Width CV 14.6 % (11.6-14.6); RBC Distribution Width SD 55.5 fl (35.1-43.9); Red Blood Count 2.95 M/mm3 (4.2-5.4); White Blood Count 13.5 K/mm3 (4.4-11.0)
[2020-10-11 06:39] LABS: ALB/GLOB Ratio 0.6 RATIO (0.9-2.4); AST(SGOT) 17 U/L (15-37); Alanine Aminotransfer ALT/SGPT 14 U/L (13-56); Albumin, Serum 2.2 g/dL (3.2-5.0); Alkaline Phosphatase 61 U/L (45-117); Anion Gap 4 (5-15); BUN 39 mg/dL (7-18); BUN/Creat Ratio 25.8 RATIO (10-20); Calcium,Total 9.9 mg/dL (8.5-10.1); Chloride 104 mmol/L (98-107); Creatinine, Serum 1.51 mg/dL (0.55-1.02); EST Glomerular Filtration Rate 35 mL/min (>60); Est Glom Filt Rate - Afr Amer 42 mL/min (>60); Estimated Creatinine Clearance 23.29 ml/min; Glucose 92 mg/dL (74-106); Potassium 3.8 mmol/L (3.5-5.1); Protein, Total 6.2 g/dL (6.4-8.2); Sodium Level 142 mmol/L (136-145)
[2020-10-11] MEDS: Budesonide Respules 0.5 MG/2 ML AMPUL.NEB. INHALATION ×2 (06:59→19:30)
[2020-10-11] MEDS: Ipratropium/Albuterol Sulfate 3 ML AMPUL.NEB INHALATION ×4 (06:59→19:30)
--- NOTE | 2020-10-11 07:35 | PN_ITS ---
Patient Problems: Active and Suspected Problems (Last Reviewed 09/27/20 @ 13:[address] Ean Chirinos, DO) COVID-19 (Acute) Pneumonia (Acute) Reason for Visit: Follow up on respiratory failure/acute COVID-19 pneumonia/COPD Subjective: Patient was seen and examined. Oxygen requirements remain very high and tenuous. No other acute events overnight. She completed 1 L of gentle IV fluids overnight. Objective: Physical exam: General: Alert, Cooperative, No apparent distress, on Airvo HEENT: Atraumatic, Normocephalic Oral: No Gingival or Mucosal Lesions/ Ulcerations Neck: Supple, No Nodes, Trachea Midline Lungs: Diminished Cardiovascular: Regular rate, Regular Rhythm Abdomen: Bowel Sounds Present, Soft, Non Tender Extremities: No clubbing, No cyanosis, No edema Skin: No breakdown Musculoskeletal: No Tenderness to Palpation of Joints or Extremities Lymphatic: No Cervical, Supraclavicular, or Inguinal Adenopathy Neurological: Cranial nerves II-XII grossly intact, Neuro grossly intact Psych/Mental Status: Normal Affect, Appropriate Vitals/I&O's: Vital Signs Temp Pulse Resp BP Pulse Ox 97.7 F L 89 21 H 106/66 92 10/11/20 05:00 10/11/20 06:59 10/11/20 06:59 10/11/20 05:00 10/11/20 06:59 Oxygen Flow Rate (L/min) 50 Oxygen Delivery Method Bi-pap Weight: 50.5 kg Body Mass Index (BMI) 19.7 Intake and Output for Last 24 Hours 10/09/20 10/10/20 10/11/20 23:59 23:59 23:59 Intake Total 700 / 700 240 / 240 120 / 120 Output Total 775 / 775 850 / 850 Balance -75 / -75 -610 / -610 120 / 120 Laboratory Results 10/10/20 09:20: Sodium 139, Potassium 3.7, Chloride 99, Carbon Dioxide 37.0 H, Anion Gap 3 L, BUN 37 H, Creatinine 1.65 H, Estim Creat Clear Calc 21.32, Est GFR (MDRD) Af Amer 39 L, Est GFR (MDRD) Non-Af 32 L, BUN/Creatinine Ratio 22.4 H , Glucose 124 H, Calcium 10.7 H, Magnesium 2.7 H 10/10/20 17:55: Urine Color Yellow, Urine Clarity Clear, Urine pH 6.5, Ur Specific [place] 1.015, Urine Protein Negative, Urine Glucose (UA) Normal, Urine Ketones Negative, Urine Occult Blood Negative, Urine Nitrite Negative, Urine Bilirubin Negative, Urine Urobilinogen Normal, Ur Leukocyte Esterase Negative 10/11/20 05:50: WBC 13.5 H, RBC 2.95 L, Hgb 9.6 L, Hct 30.8 L, MCV 104.4 H, MCH 32.5 H, MCHC 31.2 L, RDW Std Deviation 55.5 H, RDW Coeff of Linette 14.6, Plt Count 238, MPV 10.7, Immature Gran % (Auto) 0.800, Neut % (Auto) 83.1 H, Lymph % (Auto) 7.0 L, Andrew % (Auto) 7.3, Eos % (Auto) 1.4, Baso % (Auto) 0.4, Absolute Neuts (auto) 11.2 H, Absolute Lymphs (auto) 0.95, Nucleated RBC % 0 10/11/20 05:50: Sodium 142, Potassium 3.8, Chloride 104, Carbon Dioxide 34.0 H, Anion Gap 4 L, BUN 39 H, Creatinine 1.51 H, Estim Creat Clear Calc 23.29, Est GFR (MDRD) Af Amer 42 L, Est GFR (MDRD) Non-Af 35 L, BUN/Creatinine Ratio 25.8 H , Glucose 92, Calcium 9.9, Total Bilirubin 0.50, AST 17, ALT 14, Alkaline Phosphatase 61, Total Protein 6.2 L, Albumin 2.2 L, Globulin 4.0, Albumin/G lobulin Ratio 0.6 L 10/11/20 05:50: Ionized Calcium Pending Current Medications Acetaminophen (Acetaminophen 500 Mg Tablet) 1,000 mg PO Q8H PRN PRN Reason: Pain 1-10 or Fever Last Admin: 10/06/20 14:30 Dose: 1,000 mg Documented by: Albuterol Sulfate (Albuterol Sulfate 18 Gm Inhaler (200 Puffs)) 2 puff IH Q2H PRN PRN PRN Reason: SHORTNESS OF BREATH Albuterol/Ipratropium (Ipratropium/Albuterol Sulfate 3 Ml Ampul.Neb) 3 ml INHALATION Q4HWA.RT [facility] Last Admin: 10/11/20 06:59 Dose: 3 ml Documented by: Aspirin (Aspirin 81 Mg Tab.Chew) 81 mg PO DAILY [facility] Last Admin: 10/10/20 09:03 Dose: 81 mg Documented by: Atorvastatin Calcium (Atorvastatin Calcium 40 Mg Tablet) 40 mg PO DAILY@2200 [facility] Last Admin: 10/10/20 20:14 Dose: 40 mg Documented by: Budesonide (Budesonide Respules 0.5 Mg/2 Ml Ampul.Neb.) 0.5 mg INHALATION Q12H.RT [facility] Last Admin: 10/11/20 06:59 Dose: 0.5 mg Documented by: Buspirone HCl (Buspirone 15 Mg Tablet) 15 mg PO DAILY [facility] Last Admin: 10/10/20 09:02 Dose: 15 mg Documented by: Enoxaparin Sodium (Enoxaparin 30 Mg/0.3 Ml Syringe) 30 mg SC DAILY [facility] Last Admin: 10/10/20 09:02 Dose: 30 mg Documented by: Famotidine (Famotidine 20 Mg Tablet) 20 mg PO DAILY [facility] Last Admin: 10/10/20 09:02 Dose: 20 mg Documented by: Fluticasone Propionate (Fluticasone 0.05% 1 [place] Nasal.Sry) 1 spray NASAL BID [facility] Last Admin: 10/10/20 20:14 Dose: 1 spray Documented by: Sodium Chloride () 250 mls @ 15 mls/hr IV .[id number] PRN PRN Reason: Saline Flush Last Infusion: 10/09/20 07:24 Dose: Infused Documented by: Sodium Chloride () 250 mls @ 15 mls/hr IV .[id number] PRN PRN Reason: Additional IVPB Infusion Sodium Chloride () 1,000 mls @ 50 mls/hr IV .Q20H [facility] Stop: 10/11/20 09:59 Last Admin: 10/10/20 15:20 Dose: 50 mls/hr Documented by: Isosorbide Mononitrate (Isosorbide Mononitrate 30 Mg Tablet) 30 mg PO DAILY [facility] Last Admin: 10/10/20 09:02 Dose: 30 mg Documented by: Lactobacillus Acidophilus (Lactobacillus Acidophilus) 1 tablet PO DAILY [facility] Last Admin: 10/10/20 09:03 Dose: 1 tablet Documented by: Lorazepam (Lorazepam 0.5 Mg Tablet) 0.5 mg PO Q6H PRN PRN PRN Reason: ANXIETY Last Admin: 10/10/20 12:27 Dose: 0.5 mg Documented by: Miscellaneous Information (Inhaler, Assist Devices 1 Each Spacer) 0 each INHALATION PRN PRN PRN Reason: WITH INHALER Multivitamins (Multivitamins,Therapeutic Tablet) 1 tablet PO DAILY [facility] Last Admin: 10/10/20 09:02 Dose: 1 tablet Documented by: Nystatin (Nystatin 500,000 Unit/5 Ml Udc) 500,000 unit PO 4X/DAY [facility] Last Admin: 10/10/20 20:17 Dose: Not Given Documented by: Paroxetine HCl (Paroxetine Cr 12.5 Mg Tablet) 37.5 mg PO DAILY [facility] Last Admin: 10/10/20 09:04 Dose: 37.5 mg Documented by: Polyethylene Glycol (Polyethylene Glycol 3350 17 Gm Packet) 17 gm PO DAILY [facility] Last Admin: 10/10/20 09:02 Dose: 17 gm Documented by: Sodium Chloride (0.9% Saline Lock 10 Ml Syringe) 10 - 40 ml IV UD PRN PRN Reason: SALINE FLUSH Last Admin: 10/07/20 21:12 Dose: 10 ml Documented by: Sodium Chloride (Sodium Chloride 0.65% 1 [place].Btl) 2 spray NASAL BID PRN PRN PRN Reason: NASAL DRYNESS Last Admin: 10/03/20 20:53 Dose: 2 spray Documented by: STROKE Vital Signs/Narrative: Vital Signs Temp Pulse Resp BP Pulse Ox 10/11/20 06:59 86 29 H 92 10/11/20 05:46 87 26 H 96 10/11/20 05:00 97.7 F L 82 19 H 106/66 95 Medical Necessity - Tobacco Use Smoking Status: Former smoker Assessment/Plan All Active Problems (Last Reviewed 09/27/20 @ 13:[address] Ean Chirinos, DO) COVID-19 (Acute) Pneumonia (Acute) Pulmonary edema (Resolved) Pneumonia (Resolved) Physical debility (Acute) Dehydration (Acute) Tachycardia (Acute) 1. Acute hypoxic respiratory failure secondary to acute Covid- 19 pneumonia, remains still on high amounts of oxygen Continue with breathing treatments, encourage use of incentive spirometer. Wean off oxygen for SPO2 more than 94% 2. Acute COVID-19 pneumonia with hypoxia, remains worse, in the setting of chronic lung disease CTA of the chest was negative for acute PE Repeat chest x-ray on 10/10/20 showed progressive bibasilar infiltrates, worse on the left side superimposed on chronic scarring Off dexamethasone, breathing treatments Continue to hold Lasix 3. MARCOS, prerenal, likely secondary to dehydration/overdiuresis Remains fairly the same Off Lasix and ramipril; received gentle fluids yesterday with some improvement in Cr Will repeat IVF 75mls/hr for 500mls 4. Hypercalcemia secondaryto supplements Off calcium and magnesium supplements 5. Acute COPD/bronchiectasis exacerbation, improved Continue management as in #1, Continue on Decadron, breathing treatments 6. Hypertension/hyperlipidemia, all remain stable Continue on atorvastatin, isosorbide, ramipril 7. Recent hip replacement for right hip femoral neck fracture, on 09/08/20 8. DVT prophylaxis with Lovenox subcu Inpatient E&M: [id number] [facility] Hosp L3
--- NOTE | 2020-10-11 07:51 | PN_ITS ---
Patient Problems: Active and Suspected Problems (Last Reviewed 09/27/20 @ 13:[address] Ena Chirinos, DO) COVID-19 (Acute) Pneumonia (Acute) Subjective: Patient did okay overnight. Patient subjectively feels improved, but has not been able to tolerate off of BiPAP very long. No bleeding has been reported by the patient or nursing. Patient was initiated on IV fluids yesterday and appears to be tolerating well with no change in FiO2. Objective: Chest x-ray shows bilateral infiltrates inferiorly, but does not appear to be secondary to collapse or fluid. - Physical Exam Vitals/I&O's: Vital Signs Temp Pulse Resp BP Pulse Ox 36.5 C L 89 21 H 106/66 92 10/11/20 05:00 10/11/20 06:59 10/11/20 06:59 10/11/20 05:00 10/11/20 06:59 Oxygen Flow Rate (L/min) 50 Oxygen Delivery Method Bi-pap Weight: 50.5 kg Body Mass Index (BMI) 19.7 Intake and Output for Last 24 Hours 10/09/20 10/10/20 10/11/20 23:59 23:59 23:59 Intake Total 700 / 700 240 / 240 120 / 120 Output Total 775 / 775 850 / 850 Balance -75 / -75 -610 / -610 120 / 120 General: Alert, Cooperative, No apparent distress - On BiPAP, - - Frail appearance HEENT: Atraumatic, PERRLA, EOMI, Normocephalic, - - Slight scleral injection without icterus Oral: Moist Mucosa, No Gingival or Mucosal Lesions/ Ulcerations Neck: Supple, No JVD, No Nodes, Trachea Midline Lungs: No rhonchi, No wheeze, No rales, Diminished, - - Symmetric expansion. Cardiovascular: Regular rate, Regular Rhythm, Normal S1, Normal S2, No murmurs, No rub noted, No Gallop Abdomen: Bowel Sounds Present, Soft, Non Tender, Non-Distended Extremities: No clubbing, No cyanosis, No edema, Capillary Refill Less than 3 Seconds Skin: - - No change compared to previous Musculoskeletal: No Tenderness to Palpation of Joints or Extremities Lymphatic: No Cervical, Supraclavicular, or Inguinal Adenopathy Neurological: Cranial nerves II-XII grossly intact, Neuro grossly intact, Motor Exam 5/5 strength throughout Psych/Mental Status: Appropriate, Flat Affect Laboratory Results 10/10/20 09:20: Sodium 139, Potassium 3.7, Chloride 99, Carbon Dioxide 37.0 H, Anion Gap 3 L, BUN 37 H, Creatinine 1.65 H, Estim Creat Clear Calc 21.32, Est GFR (MDRD) Af Amer 39 L, Est GFR (MDRD) Non-Af 32 L, BUN/Creatinine Ratio 22.4 H , Glucose 124 H, Calcium 10.7 H, Magnesium 2.7 H 10/10/20 17:55: Urine Color Yellow, Urine Clarity Clear, Urine pH 6.5, Ur Specific [place] 1.015, Urine Protein Negative, Urine Glucose (UA) Normal, Urine Ketones Negative, Urine Occult Blood Negative, Urine Nitrite Negative, Urine Bilirubin Negative, Urine Urobilinogen Normal, Ur Leukocyte Esterase Negative 10/11/20 05:50: WBC 13.5 H, RBC 2.95 L, Hgb 9.6 L, Hct 30.8 L, MCV 104.4 H, MCH 32.5 H, MCHC 31.2 L, RDW Std Deviation 55.5 H, RDW Coeff of Linette 14.6, Plt Count 238, MPV 10.7, Immature Gran % (Auto) 0.800, Neut % (Auto) 83.1 H, Lymph % (Auto) 7.0 L, [place] % (Auto) 7.3, Eos % (Auto) 1.4, Baso % (Auto) 0.4, Absolute Neuts (auto) 11.2 H, Absolute Lymphs (auto) 0.95, Nucleated RBC % 0 10/11/20 05:50: Sodium 142, Potassium 3.8, Chloride 104, Carbon Dioxide 34.0 H, Anion Gap 4 L, BUN 39 H, Creatinine 1.51 H, Estim Creat Clear Calc 23.29, Est GFR (MDRD) Af Amer 42 L, Est GFR (MDRD) Non-Af 35 L, BUN/Creatinine Ratio 25.8 H , Glucose 92, Calcium 9.9, Total Bilirubin 0.50, AST 17, ALT 14, Alkaline Phosphatase 61, Total Protein 6.2 L, Albumin 2.2 L, Globulin 4.0, Albumin/Globulin Ratio 0.6 L 10/11/20 05:50: Ionized Calcium Pending Current Medications Acetaminophen (Acetaminophen 500 Mg Tablet) 1,000 mg PO Q8H PRN PRN Reason: Pain 1-10 or Fever Last Admin: 10/06/20 14:30 Dose: 1,000 mg Documented by: Albuterol Sulfate (Albuterol Sulfate 18 Gm Inhaler (200 Puffs)) 2 puff IH Q2H PRN PRN PRN Reason: SHORTNESS OF BREATH Albuterol/Ipratropium (Ipratropium/Albuterol Sulfate 3 Ml Ampul.Neb) 3 ml INHALATION Q4HWA.RT [facility] Last Admin: 10/11/20 06:59 Dose: 3 ml Documented by: Aspirin (Aspirin 81 Mg Tab.Chew) 81 mg PO DAILY [facility] Last Admin: 10/10/20 09:03 Dose: 81 mg Documented by: Atorvastatin Calcium (Atorvastatin Calcium 40 Mg Tablet) 40 mg PO DAILY@2200 [facility] Last Admin: 10/10/20 20:14 Dose: 40 mg Documented by: Budesonide (Budesonide Respules 0.5 Mg/2 Ml Ampul.Neb.) 0.5 mg INHALATION Q12H.RT [facility] Last Admin: 10/11/20 06:59 Dose: 0.5 mg Documented by: Buspirone HCl (Buspirone 15 Mg Tablet) 15 mg PO DAILY [facility] Last Admin: 10/10/20 09:02 Dose: 15 mg Documented by: Enoxaparin Sodium (Enoxaparin 30 Mg/0.3 Ml Syringe) 30 mg SC DAILY [facility] Last Admin: 10/10/20 09:02 Dose: 30 mg Documented by: Famotidine (Famotidine 20 Mg Tablet) 20 mg PO DAILY [facility] Last Admin: 10/10/20 09:02 Dose: 20 mg Documented by: Fluticasone Propionate (Fluticasone 0.05% 1 [place] Nasal.Sry) 1 spray NASAL BID [facility] Last Admin: 10/10/20 20:14 Dose: 1 spray Documented by: Sodium Chloride () 250 mls @ 15 mls/hr IV .[id number] PRN PRN Reason: Saline Flush Last Infusion: 10/09/20 07:24 Dose: Infused Documented by: Sodium Chloride () 250 mls @ 15 mls/hr IV .[id number] PRN PRN Reason: Additional IVPB Infusion Sodium Chloride () 1,000 mls @ 50 mls/hr IV .Q20H [facility] Stop: 10/11/20 09:59 Last Admin: 10/10/20 15:20 Dose: 50 mls/hr Documented by: Isosorbide Mononitrate (Isosorbide Mononitrate 30 Mg Tablet) 30 mg PO DAILY [facility] Last Admin: 10/10/20 09:02 Dose: 30 mg Documented by: Lactobacillus Acidophilus (Lactobacillus Acidophilus) 1 tablet PO DAILY [facility] Last Admin: 10/10/20 09:03 Dose: 1 tablet Documented by: Lorazepam (Lorazepam 0.5 Mg Tablet) 0.5 mg PO Q6H PRN PRN PRN Reason: ANXIETY Last Admin: 10/10/20 12:27 Dose: 0.5 mg Documented by: Miscellaneous Information (Inhaler, Assist Devices 1 Each Spacer) 0 each INHALATION PRN PRN PRN Reason: WITH INHALER Multivitamins (Multivitamins,Therapeutic Tablet) 1 tablet PO DAILY [facility] Last Admin: 10/10/20 09:02 Dose: 1 tablet Documented by: Nystatin (Nystatin 500,000 Unit/5 Ml Udc) 500,000 unit PO 4X/DAY [facility] Last Admin: 10/10/20 20:17 Dose: Not Given Documented by: Paroxetine HCl (Paroxetine Cr 12.5 Mg Tablet) 37.5 mg PO DAILY [facility] Last Admin: 10/10/20 09:04 Dose: 37.5 mg Documented by: Polyethylene Glycol (Polyethylene Glycol 3350 17 Gm Packet) 17 gm PO DAILY [facility] Last Admin: 10/10/20 09:02 Dose: 17 gm Documented by: Sodium Chloride (0.9% Saline Lock 10 Ml Syringe) 10 - 40 ml IV UD PRN PRN Reason: SALINE FLUSH Last Admin: 10/07/20 21:12 Dose: 10 ml Documented by: Sodium Chloride (Sodium Chloride 0.65% 1 [place].Btl) 2 spray NASAL BID PRN PRN PRN Reason: NASAL DRYNESS Last Admin: 10/03/20 20:53 Dose: 2 spray Documented by: Clinical Impression(s) from Imaging Studies Chest X-Ray 10/10/20 13:45 IMPRESSION: Progressive bibasilar infiltrates worse on the left side superimposed on chronic scarring. Electronically Signed: Shreyas Westbrook MD at 14:12 EST , Service support , Medical Necessity - Tobacco Use Smoking Status: Former smoker Assessment/Plan All Active Problems (Last Reviewed 09/27/20 @ 13:[address] Ean Chirinos, DO) COVID-19 (Acute) Pneumonia (Acute) Pulmonary edema (Resolved) Pneumonia (Resolved) Physical debility (Acute) Dehydration (Acute) Tachycardia (Acute) RECOMMENDATIONS: 1. Continue supplemental oxygen and wean FiO2 to maintain saturations at or above 90%. 2. Continue Decadron to complete 10-day treatment course. 3. Continue scheduled bronchodilator and inhaled corticosteroid therapy. Resume triple therapy inhaler regimen at discharge. 4. Encourage incentive spirometer use and mobilize patient as tolerated. 5. Agree with slow hydration 6. Attempt BiPAP breaks as tolerated 7. Okay to proceed with LTAC evaluation from my perspective if patient continues to request aggressive measures IMPRESSIONS: 1. Acute on chronic hypoxemic respiratory failure secondary to COVID-19 pneumonia The patient does have baseline severe COPD based upon pulmonary function studies from March 2020. She has completed her treatment course of remdesivir and remains on Decadron. I would also advise continuing scheduled bronchodilator therapy as ordered. The patient will be continued on Airvo heated high flow oxygen with plans to wean FiO2 to maintain saturations at or above 90%. Encourage incentive spirometer use and mobilize patient as tolerated. There is no evidence of pulmonary embolism identified on CTA chest. Patient with some improvement in renal status following IV fluids. This may help with respiratory demand. We will continue for another 24 hours. Attempt BiPAP breaks as tolerated. Do need to clarify CODE STATUS moving forward. Patient may be entering a fibrotic stage that is not readily reversible. 2. Recent hip surgery/advanced age/hypertension/hyperlipidemia/anxiety Complicates care, management, recovery and prognosis. Continue home medications as indicated. Inpatient E&M: 35597 [facility] L[facility]
--- NOTE | 2020-10-11 09:02 | CASEMGMT ---
Addendum entered by Miladys Garza 10/11/20 14:36: Per Annie, pt will need to be able to tolerate Airvo during the day x 24 hrs (okay for BIPAP @ [facility]) in order for them to accept pt. She states then, pt's chart will go for review of clinical documentation and Airvo O2 requirements to determine acceptance as well. Annie was made aware that pt has tolerated Airvo since this AM. She states she will call [facility] charge nurse daily over the weekend to inquire about pt's condition/status, and if pt tolerating Airvo, then they will review for final determination of acceptance. Dr Oconnell, inspector clip on sunglasses, Davey and RN, Geoff, made aware of above. Call placed to pt's daughter, Tony, and she was notified of possibility of pt discharging to [facility] over the weekend, dependent up on the above conditions. She voices understanding and appreciation of the update. Green sheet placed on chart w/instructions for transfer to [facility] if bed available and pt medically ready for discharge. [facility] phone number for nurse to nurse report: [phone] Staff may also call intake liaison @ [facility], Annie, @ [phone] for any questions. Original Note: DIANE SAUL NOTE: Call placed to marsha Valencia @ [facility]. She was made aware pt is not medically ready for discharge as she was not tolerating Airvo and has been back on BIPAP since yesterday. Pt will remain on their waiting list. DIANE SAUL to update Annie @ [facility] on Wednesday on pt condition. Kyleigh MCRAE RN, CM
[2020-10-11] MEDS: Fluticasone 0.05% 1 SPRAY NASAL.SRY NASAL ×2 (09:20→20:56)
[2020-10-11] MEDS: Enoxaparin 30 MG/0.3 ML Syringe SC (09:21)
[2020-10-11] MEDS: Multivitamins,Therapeutic Tablet 1 TABLET PO (09:22)
[2020-10-11] MEDS: Famotidine 20 MG Tablet PO (09:22)
[2020-10-11] MEDS: busPIRone 15 MG TABLET PO (09:22)
[2020-10-11] MEDS: Isosorbide Mononitrate 30 MG Tablet PO (09:22)
[2020-10-11] MEDS: PARoxetine CR 12.5 MG Tablet 37.5 MG PO (09:22)
[2020-10-11] MEDS: Aspirin 81 MG TAB.CHEW PO (09:23)
[2020-10-11] MEDS: NYSTATIN 500,000 UNIT/5 ML UDC 500000 UNIT PO ×4 (09:23→20:58)
[2020-10-11] MEDS: Acetaminophen 500 MG Tablet 1000 MG PO ×2 (13:18→21:15)
[2020-10-11] MEDS: 0.9% Normal Saline 1,000 ML 75 ML IV (13:25)
[2020-10-11] MEDS: 0.9% Saline Lock 10 ML Syringe IV (13:26)
[2020-10-11] MEDS: Sodium Chloride 0.65% 1 SPRAY SPRAY.BTL 2 SPRAY NASAL (17:50)
[2020-10-11] MEDS: Atorvastatin Calcium 40 MG Tablet PO (20:56)
[2020-10-11] MEDS: LORazepam 0.5 MG Tablet PO (21:15)
[2020-10-12] VITALS (13 sets, daily range): BP systolic 99–116; BP diastolic 59–78; PULSE 79–105; RESP 12–24; TEMP 36.4–36.8; O2SAT 85–98
[2020-10-12] MEDS: Budesonide Respules 0.5 MG/2 ML AMPUL.NEB. INHALATION ×2 (07:24→19:01)
[2020-10-12] MEDS: Ipratropium/Albuterol Sulfate 3 ML AMPUL.NEB INHALATION ×4 (07:24→19:01)
--- NOTE | 2020-10-12 07:56 | PN_ITS ---
Patient Problems: Active and Suspected Problems (Last Reviewed 09/27/20 @ 13:[address] Ean Chirinos, DO) COVID-19 (Acute) Pneumonia (Acute) Reason for Visit: Follow up on respiratory failure/acute COVID-19 pneumonia/COPD Subjective: Patient was seen and examined. No other acute events overnight. Been on Airvo during the day and Bipap at night Objective: Physical exam: General: Alert, Cooperative, No apparent distress, on Airvo HEENT: Atraumatic, Normocephalic Oral: No Gingival or Mucosal Lesions/ Ulcerations Neck: Supple, No Nodes, Trachea Midline Lungs: Diminished Cardiovascular: Regular rate, Regular Rhythm Abdomen: Bowel Sounds Present, Soft, Non Tender Extremities: No clubbing, No cyanosis, No edema Skin: No breakdown Musculoskeletal: No Tenderness to Palpation of Joints or Extremities Lymphatic: No Cervical, Supraclavicular, or Inguinal Adenopathy Neurological: Cranial nerves II-XII grossly intact, Neuro grossly intact Psych/Mental Status: Normal Affect, Appropriate Vitals/I&O's: Vital Signs Temp Pulse Resp BP Pulse Ox 97.8 F 81 19 H 105/59 L 97 10/12/20 02:46 10/12/20 04:20 10/12/20 04:20 10/12/20 02:46 10/12/20 04:20 Oxygen Flow Rate (L/min) 50 Oxygen Delivery Method Airvo Weight: 50.5 kg Body Mass Index (BMI) 19.7 Intake and Output for Last 24 Hours 10/10/20 10/11/20 10/12/20 23:59 23:59 23:59 Intake Total 240 / 240 1651.25 / 1711.25 60 / 60 Output Total 850 / 850 Balance -610 / -610 1651.25 / 1711.25 60 / 60 Current Medications Acetaminophen (Acetaminophen 500 Mg Tablet) 1,000 mg PO Q8H PRN PRN Reason: Pain 1-10 or Fever Last Admin: 10/11/20 21:15 Dose: 1,000 mg Documented by: Albuterol Sulfate (Albuterol Sulfate 18 Gm Inhaler (200 Puffs)) 2 puff IH Q2H PRN PRN PRN Reason: SHORTNESS OF BREATH Albuterol/Ipratropium (Ipratropium/Albuterol Sulfate 3 Ml Ampul.Neb) 3 ml INHALATION Q4HWA.RT [facility] Last Admin: 10/12/20 07:24 Dose: 3 ml Documented by: Aspirin (Aspirin 81 Mg Tab.Chew) 81 mg PO DAILY [facility] Last Admin: 10/11/20 09:23 Dose: 81 mg Documented by: Atorvastatin Calcium (Atorvastatin Calcium 40 Mg Tablet) 40 mg PO DAILY@2200 [facility] Last Admin: 10/11/20 20:56 Dose: 40 mg Documented by: Budesonide (Budesonide Respules 0.5 Mg/2 Ml Ampul.Neb.) 0.5 mg INHALATION Q12H.RT [facility] Last Admin: 10/12/20 07:24 Dose: 0.5 mg Documented by: Buspirone HCl (Buspirone 15 Mg Tablet) 15 mg PO DAILY [facility] Last Admin: 10/11/20 09:22 Dose: 15 mg Documented by: Enoxaparin Sodium (Enoxaparin 30 Mg/0.3 Ml Syringe) 30 mg SC DAILY [facility] Last Admin: 10/11/20 09:21 Dose: 30 mg Documented by: Famotidine (Famotidine 20 Mg Tablet) 20 mg PO DAILY [facility] Last Admin: 10/11/20 09:22 Dose: 20 mg Documented by: Fluticasone Propionate (Fluticasone 0.05% 1 [place] Nasal.Sry) 1 spray NASAL BID [facility] Last Admin: 10/11/20 20:56 Dose: 1 spray Documented by: Sodium Chloride () 250 mls @ 15 mls/hr IV .[id number] PRN PRN Reason: Saline Flush Last Infusion: 10/09/20 07:24 Dose: Infused Documented by: Sodium Chloride () 250 mls @ 15 mls/hr IV .[id number] PRN PRN Reason: Additional IVPB Infusion Isosorbide Mononitrate (Isosorbide Mononitrate 30 Mg Tablet) 30 mg PO DAILY [facility] Last Admin: 10/11/20 09:22 Dose: 30 mg Documented by: Lactobacillus Acidophilus (Lactobacillus Acidophilus) 1 tablet PO DAILY [facility] Last Admin: 10/11/20 09:22 Dose: 1 tablet Documented by: Lorazepam (Lorazepam 0.5 Mg Tablet) 0.5 mg PO Q6H PRN PRN PRN Reason: ANXIETY Last Admin: 10/11/20 21:15 Dose: 0.5 mg Documented by: Miscellaneous Information (Inhaler, Assist Devices 1 Each Spacer) 0 each INHALATION PRN PRN PRN Reason: WITH INHALER Multivitamins (Multivitamins,Therapeutic Tablet) 1 tablet PO DAILY [facility] Last Admin: 10/11/20 09:22 Dose: 1 tablet Documented by: Nystatin (Nystatin 500,000 Unit/5 Ml Udc) 500,000 unit PO 4X/DAY [facility] Last Admin: 10/11/20 20:58 Dose: 500,000 unit Documented by: Paroxetine HCl (Paroxetine Cr 12.5 Mg Tablet) 37.5 mg PO DAILY [facility] Last Admin: 10/11/20 09:22 Dose: 37.5 mg Documented by: Polyethylene Glycol (Polyethylene Glycol 3350 17 Gm Packet) 17 gm PO DAILY [facility] Last Admin: 10/11/20 09:24 Dose: Not Given Documented by: Sodium Chloride (0.9% Saline Lock 10 Ml Syringe) 10 - 40 ml IV UD PRN PRN Reason: SALINE FLUSH Last Admin: 10/11/20 13:26 Dose: 10 ml Documented by: Sodium Chloride (Sodium Chloride 0.65% 1 [place].Btl) 2 spray NASAL BID PRN PRN PRN Reason: NASAL DRYNESS Last Admin: 10/11/20 17:50 Dose: 2 spray Documented by: STROKE Vital Signs/Narrative: Vital Signs Pulse Resp Pulse Ox 10/12/20 04:20 81 19 H 97 Medical Necessity - Tobacco Use Smoking Status: Former smoker Assessment/Plan All Active Problems (Last Reviewed 09/27/20 @ 13:[address] Ean Chirinos, DO) COVID-19 (Acute) Pneumonia (Acute) Pulmonary edema (Resolved) Pneumonia (Resolved) Physical debility (Acute) Dehydration (Acute) Tachycardia (Acute) 1. Acute hypoxic respiratory failure secondary to acute Covid- 19 pneumonia, remains still on high amounts of oxygen Continue with breathing treatments, encourage use of incentive spirometer. Wean off oxygen for SPO2 more than 94% 2. Acute COVID-19 pneumonia with hypoxia, remains worse, in the setting of chronic lung disease CTA of the chest was negative for acute PE Repeat chest x-ray on 10/10/20 showed progressive bibasilar infiltrates, worse on the left side superimposed on chronic scarring Off dexamethasone, breathing treatments Continue to hold Lasix 3. MARCOS, prerenal, likely secondary to dehydration/overdiuresis Cr improved to 1.29 from 1.55 Off Lasix and ramipril; received gentle fluids yesterday with some improvement in Cr 4. Hypercalcemia secondary to supplements Off calcium and magnesium supplements 5. Acute COPD/bronchiectasis exacerbation, improved Continue management as in #1, Continue on Decadron, breathing treatments 6. Hypertension/hyperlipidemia, all remain stable Continue on atorvastatin, isosorbide, ramipril 7. Recent hip replacement for right hip femoral neck fracture, on 09/08/20 8. DVT prophylaxis with Lovenox subcu Inpatient E&M: 94709 [facility] Hosp L3
[2020-10-12 08:27] LABS: Hematocrit 30.3 % (37-47); Hemoglobin 9.6 g/dL (12.0-15.0); Mean Corp Hgb Conc 31.7 g/dL (32-36); Mean Corpuscular Hgb 32.7 pg (27.0-32.0); Mean Corpuscular Volume 103.1 fL (81-99); Mean Platelet Vol. 11.5 fl (6.2-12.0); Platelet Count 236 K/mm3 (150-450); RBC Distribution Width CV 14.4 % (11.6-14.6); RBC Distribution Width SD 54.4 fl (35.1-43.9); Red Blood Count 2.94 M/mm3 (4.2-5.4); White Blood Count 10.7 K/mm3 (4.4-11.0)
[2020-10-12 08:55] LABS: Anion Gap 3 (5-15); BUN 33 mg/dL (7-18); BUN/Creat Ratio 25.6 RATIO (10-20); Calcium,Total 9.2 mg/dL (8.5-10.1); Chloride 105 mmol/L (98-107); Creatinine, Serum 1.29 mg/dL (0.55-1.02); EST Glomerular Filtration Rate 42 mL/min (>60); Est Glom Filt Rate - Afr Amer 51 mL/min (>60); Estimated Creatinine Clearance 27.27 ml/min; Glucose 87 mg/dL (74-106); Potassium 3.7 mmol/L (3.5-5.1); Sodium Level 142 mmol/L (136-145)
--- NOTE | 2020-10-12 08:56 | PCM.PN.PUL ---
Patient Problems: Active and Suspected Problems (Last Reviewed 09/27/20 @ 13:[address] Ean Chirinos, DO) COVID-19 (Acute) Pneumonia (Acute) Subjective: Patient did okay overnight. No acute issues were reported. Patient overall feels subjectively unchanged compared to previous. Oxygen status has not really deteriorated despite IV fluids. - Physical Exam Vitals/I&O's: Vital Signs Temp Pulse Resp BP Pulse Ox 36.6 C 86 12 105/59 L 93 10/12/20 02:46 10/12/20 07:24 10/12/20 07:24 10/12/20 02:46 10/12/20 07:24 Oxygen Flow Rate (L/min) 50 Oxygen Delivery Method Airvo Weight: 50.5 kg Body Mass Index (BMI) 19.7 Intake and Output for Last 24 Hours 10/10/20 10/11/20 10/12/20 23:59 23:59 23:59 Intake Total 240 / 240 1651.25 / 1711.25 60 / 60 Output Total 850 / 850 Balance -610 / -610 1651.25 / 1711.25 60 / 60 General: Alert, Oriented x3, Cooperative, No apparent distress - On BiPAP, - - Frail appearance HEENT: Atraumatic, PERRLA, EOMI, Normocephalic, - - No scleral icterus or injection noted Oral: No Gingival or Mucosal Lesions/ Ulcerations, Dry Mucosa Neck: Supple, No JVD, No Nodes, Trachea Midline Lungs: No rhonchi, No wheeze, No rales, Diminished Cardiovascular: Regular rate, Regular Rhythm, Normal S1, Normal S2, No murmurs, No rub noted, No Gallop Abdomen: Bowel Sounds Present, Soft, Non Tender, Non-Distended Extremities: No clubbing, No cyanosis, No edema Skin: - - No change from previous Musculoskeletal: No Tenderness to Palpation of Joints or Extremities Lymphatic: No Cervical, Supraclavicular, or Inguinal Adenopathy Neurological: Cranial nerves II-XII grossly intact, Neuro grossly intact, Motor Exam 5/5 strength throughout Psych/Mental Status: Alert and oriented to time, place, person, mood and affect Laboratory Results 10/12/20 07:57: WBC 10.7, RBC 2.94 L, Hgb 9.6 L, Hct 30.3 L, MCV 103.1 H, MCH 32.7 H, MCHC 31.7 L, RDW Std Deviation 54.4 H, RDW Coeff of Linette 14.4, Plt Count 236, MPV 11.5 10/12/20 07:57: Sodium 142, Potassium 3.7, Chloride 105, Carbon Dioxide 34.0 H, Anion Gap 3 L, BUN 33 H, Creatinine 1.29 H, Estim Creat Clear Calc 27.27, Est GFR (MDRD) Af Amer 51 L, Est GFR (MDRD) Non-Af 42 L, BUN/Creatinine Ratio 25.6 H, Glucose 87, Calcium 9.2 Current Medications Acetaminophen (Acetaminophen 500 Mg Tablet) 1,000 mg PO Q8H PRN PRN Reason: Pain 1-10 or Fever Last Admin: 10/11/20 21:15 Dose: 1,000 mg Documented by: Albuterol Sulfate (Albuterol Sulfate 18 Gm Inhaler (200 Puffs)) 2 puff IH Q2H PRN PRN PRN Reason: SHORTNESS OF BREATH Albuterol/Ipratropium (Ipratropium/Albuterol Sulfate 3 Ml Ampul.Neb) 3 ml INHALATION Q4HWA.RT [facility] Last Admin: 10/12/20 07:24 Dose: 3 ml Documented by: Aspirin (Aspirin 81 Mg Tab.Chew) 81 mg PO DAILY [facility] Last Admin: 10/11/20 09:23 Dose: 81 mg Documented by: Atorvastatin Calcium (Atorvastatin Calcium 40 Mg Tablet) 40 mg PO DAILY@2200 [facility] Last Admin: 10/11/20 20:56 Dose: 40 mg Documented by: Budesonide (Budesonide Respules 0.5 Mg/2 Ml Ampul.Neb.) 0.5 mg INHALATION Q12H.RT [facility] Last Admin: 10/12/20 07:24 Dose: 0.5 mg Documented by: Buspirone HCl (Buspirone 15 Mg Tablet) 15 mg PO DAILY [facility] Last Admin: 10/11/20 09:22 Dose: 15 mg Documented by: Enoxaparin Sodium (Enoxaparin 30 Mg/0.3 Ml Syringe) 30 mg SC DAILY [facility] Last Admin: 10/11/20 09:21 Dose: 30 mg Documented by: Famotidine (Famotidine 20 Mg Tablet) 20 mg PO DAILY [facility] Last Admin: 10/11/20 09:22 Dose: 20 mg Documented by: Fluticasone Propionate (Fluticasone 0.05% 1 [place] Nasal.Sry) 1 spray NASAL BID [facility] Last Admin: 10/11/20 20:56 Dose: 1 spray Documented by: Sodium Chloride () 250 mls @ 15 mls/hr IV .[id number] PRN PRN Reason: Saline Flush Last Infusion: 10/09/20 07:24 Dose: Infused Documented by: Sodium Chloride () 250 mls @ 15 mls/hr IV .[id number] PRN PRN Reason: Additional IVPB Infusion Isosorbide Mononitrate (Isosorbide Mononitrate 30 Mg Tablet) 30 mg PO DAILY [facility] Last Admin: 10/11/20 09:22 Dose: 30 mg Documented by: Lactobacillus Acidophilus (Lactobacillus Acidophilus) 1 tablet PO DAILY [facility] Last Admin: 10/11/20 09:22 Dose: 1 tablet Documented by: Lorazepam (Lorazepam 0.5 Mg Tablet) 0.5 mg PO Q6H PRN PRN PRN Reason: ANXIETY Last Admin: 10/11/20 21:15 Dose: 0.5 mg Documented by: Miscellaneous Information (Inhaler, Assist Devices 1 Each Spacer) 0 each INHALATION PRN PRN PRN Reason: WITH INHALER Multivitamins (Multivitamins,Therapeutic Tablet) 1 tablet PO DAILY [facility] Last Admin: 10/11/20 09:22 Dose: 1 tablet Documented by: Nystatin (Nystatin 500,000 Unit/5 Ml Udc) 500,000 unit PO 4X/DAY [facility] Last Admin: 10/11/20 20:58 Dose: 500,000 unit Documented by: Paroxetine HCl (Paroxetine Cr 12.5 Mg Tablet) 37.5 mg PO DAILY [facility] Last Admin: 10/11/20 09:22 Dose: 37.5 mg Documented by: Polyethylene Glycol (Polyethylene Glycol 3350 17 Gm Packet) 17 gm PO DAILY [facility] Last Admin: 10/11/20 09:24 Dose: Not Given Documented by: Sodium Chloride (0.9% Saline Lock 10 Ml Syringe) 10 - 40 ml IV UD PRN PRN Reason: SALINE FLUSH Last Admin: 10/11/20 13:26 Dose: 10 ml Documented by: Sodium Chloride (Sodium Chloride 0.65% 1 [place].Btl) 2 spray NASAL BID PRN PRN PRN Reason: NASAL DRYNESS Last Admin: 10/11/20 17:50 Dose: 2 spray Documented by: Medical Necessity - Tobacco Use Smoking Status: Former smoker Assessment/Plan All Active Problems (Last Reviewed 09/27/20 @ 13:[address] Ean Chirinos, DO) COVID-19 (Acute) Pneumonia (Acute) Pulmonary edema (Resolved) Pneumonia (Resolved) Physical debility (Acute) Dehydration (Acute) Tachycardia (Acute) RECOMMENDATIONS: 1. Continue supplemental oxygen and wean FiO2 to maintain saturations at or above 90%. 2. Completed Decadron and remdesivir 3. Continue scheduled bronchodilator and inhaled corticosteroid therapy. Resume triple therapy inhaler regimen at discharge. 4. Encourage incentive spirometer use and mobilize patient as tolerated. 5. Agree with slow hydration. Oxygenation appears to be tolerating well 6. Attempt Airvo during the day with BiPAP at night 7. Okay to proceed with LTAC evaluation from my perspective if patient able to tolerate Airvo during the day IMPRESSIONS: 1. Acute on chronic hypoxemic respiratory failure secondary to COVID-19 pneumonia The patient does have baseline severe COPD based upon pulmonary function studies from March 2020. She has completed her treatment course of remdesivir and remains on Decadron. I would also advise continuing scheduled bronchodilator therapy as ordered. The patient will be continued on Airvo heated high flow oxygen with plans to wean FiO2 to maintain saturations at or above 90%. Encourage incentive spirometer use and mobilize patient as tolerated. There is no evidence of pulmonary embolism identified on CTA chest. Patient appears to be improving with gentle diuresis. Likely secondary to improve renal function. If patient is able to tolerate Airvo during the day with BiPAP at night, LTAC disposition would be a consideration. 2. Recent hip surgery/advanced age/hypertension/hyperlipidemia/anxiety Complicates care, management, recovery and prognosis. Continue home medications as indicated. Inpatient E&M: 09475 Subs Hosp L3
[2020-10-12] MEDS: Polyethylene Glycol 3350 17 GM PACKET PO (09:02)
[2020-10-12] MEDS: busPIRone 15 MG TABLET PO (09:03)
[2020-10-12] MEDS: Multivitamins,Therapeutic Tablet 1 TABLET PO (09:03)
[2020-10-12] MEDS: Enoxaparin 30 MG/0.3 ML Syringe SC (09:03)
[2020-10-12] MEDS: Aspirin 81 MG TAB.CHEW PO (09:03)
[2020-10-12] MEDS: Isosorbide Mononitrate 30 MG Tablet PO (09:03)
[2020-10-12] MEDS: Famotidine 20 MG Tablet PO (09:03)
[2020-10-12] MEDS: NYSTATIN 500,000 UNIT/5 ML UDC 500000 UNIT PO ×4 (09:12→20:41)
[2020-10-12] MEDS: PARoxetine CR 12.5 MG Tablet 37.5 MG PO (09:12)
--- NOTE | 2020-10-12 19:00 | CPS ---
FiO2 on AIRVO increased to 90%
[2020-10-12] MEDS: Atorvastatin Calcium 40 MG Tablet PO (20:41)
[2020-10-12] MEDS: LORazepam 0.5 MG Tablet PO (20:42)
[2020-10-12] MEDS: Fluticasone 0.05% 1 SPRAY NASAL.SRY NASAL (20:43)
[2020-10-13] VITALS (21 sets, daily range): BP systolic 100–133; BP diastolic 65–85; PULSE 77–97; RESP 12–25; TEMP 36.6–37.1; O2SAT 81–98
[2020-10-13] MEDS: LORazepam 0.5 MG Tablet PO ×2 (06:45→13:06)
[2020-10-13] MEDS: Ipratropium/Albuterol Sulfate 3 ML AMPUL.NEB INHALATION ×4 (07:30→18:49)
[2020-10-13 07:37] LABS: Absolute Lymphocyte Count 0.73 X10^3/uL (0.83-4.51); Absolute Neutrophil Count 10.1 X10^3/uL (2.0-7.7); Basophil# 0.05 X10^3/uL; Basophil% 0.4 % (0-1); Eosinophil# 0.15 X10^3/uL; Eosinophils% 1.3 % (0-5); Hematocrit 32.8 % (37-47); Hemoglobin 10.3 g/dL (12.0-15.0); Lymphocyte # 0.73 X10^3/ul (4.0); Lymphocyte % 6.2 % (19-41); Mean Corp Hgb Conc 31.4 g/dL (32-36); Mean Corpuscular Hgb 32.7 pg (27.0-32.0); Mean Corpuscular Volume 104.1 fL (81-99); Mean Platelet Vol. 11.4 fl (6.2-12.0); Monocyte# 0.77 X10^3/uL; Monocyte% 6.5 % (0-10); NRBC Flagged by Analyzer 0 % (0-5); Neutrophil # 10.06 X10^3/uL (2.7-7.7); Neutrophil % 85.2 % (47-70); Platelet Count 245 K/mm3 (150-450); RBC Distribution Width CV 14.5 % (11.6-14.6); RBC Distribution Width SD 54.9 fl (35.1-43.9); Red Blood Count 3.15 M/mm3 (4.2-5.4); White Blood Count 11.8 K/mm3 (4.4-11.0)
[2020-10-13 08:17] LABS: ALB/GLOB Ratio 0.5 RATIO (0.9-2.4); AST(SGOT) 21 U/L (15-37); Alanine Aminotransfer ALT/SGPT 15 U/L (13-56); Albumin, Serum 2.3 g/dL (3.2-5.0); Alkaline Phosphatase 68 U/L (45-117); Anion Gap 4 (5-15); BUN 24 mg/dL (7-18); BUN/Creat Ratio 20.7 RATIO (10-20); Calcium,Total 9.3 mg/dL (8.5-10.1); Chloride 106 mmol/L (98-107); Creatinine, Serum 1.16 mg/dL (0.55-1.02); EST Glomerular Filtration Rate 48 mL/min (>60); Est Glom Filt Rate - Afr Amer 58 mL/min (>60); Estimated Creatinine Clearance 30.32 ml/min; Globulin 4.3 g/dL (2.2-4.2); Glucose 106 mg/dL (74-106); Potassium 3.5 mmol/L (3.5-5.1); Protein, Total 6.6 g/dL (6.4-8.2); Sodium Level 143 mmol/L (136-145)
--- NOTE | 2020-10-13 08:21 | PCM.PN.PUL ---
Patient Problems: Active and Suspected Problems (Last Reviewed 09/27/20 @ 13:[address] Ean Chirinos, DO) COVID-19 (Acute) Pneumonia (Acute) Subjective: Patient did okay overnight. Patient continues to require significant amounts of oxygen to maintain saturations. Patient was started on IPPV yesterday and is having some production of sputum. Patient reports no subjective change in overall condition. - Physical Exam Vitals/I&O's: Vital Signs Temp Pulse Resp BP Pulse Ox 36.8 C 97 25 H 123/81 H 97 10/13/20 06:00 10/13/20 07:30 10/13/20 07:30 10/13/20 06:00 10/13/20 07:30 Oxygen Flow Rate (L/min) 50 Oxygen Delivery Method Airvo Weight: 50.5 kg Body Mass Index (BMI) 19.7 Intake and Output for Last 24 Hours 10/11/20 10/12/20 10/13/20 23:59 23:59 23:59 Intake Total 1651.25 / 1711.25 1020 / 1260 420 / 420 Balance 1651.25 / 1711.25 1020 / 1260 420 / 420 General: Alert, Oriented x3, Cooperative, No apparent distress - On BiPAP, - - Frail appearance. HEENT: Atraumatic, PERRLA, EOMI, Normocephalic, - - No scleral icterus or injection noted Oral: Moist Mucosa, No Gingival or Mucosal Lesions/ Ulcerations Neck: Supple, No JVD, No Nodes, Trachea Midline Lungs: No rhonchi, No wheeze, No rales, Diminished, - - Symmetric expansion Cardiovascular: Regular rate, Regular Rhythm, Normal S1, Normal S2, No murmurs, No rub noted, No Gallop Abdomen: Bowel Sounds Present, Soft, Non Tender, Non-Distended Extremities: No clubbing, No cyanosis, No edema Skin: No rashes, No breakdown Musculoskeletal: No Tenderness to Palpation of Joints or Extremities Lymphatic: No Cervical, Supraclavicular, or Inguinal Adenopathy Neurological: Cranial nerves II-XII grossly intact, Neuro grossly intact, Motor Exam 5/5 strength throughout Psych/Mental Status: Flat Affect Laboratory Results 10/12/20 07:57: WBC 10.7, RBC 2.94 L, Hgb 9.6 L, Hct 30.3 L, MCV 103.1 H, MCH 32.7 H, MCHC 31.7 L, RDW Std Deviation 54.4 H, RDW Coeff of Linette 14.4, Plt Count 236, MPV 11.5 10/12/20 07:57: Sodium 142, Potassium 3.7, Chloride 105, Carbon Dioxide 34.0 H, Anion Gap 3 L, BUN 33 H, Creatinine 1.29 H, Estim Creat Clear Calc 27.27, Est GFR (MDRD) Af Amer 51 L, Est GFR (MDRD) Non-Af 42 L, BUN/Creatinine Ratio 25.6 H, Glucose 87, Calcium 9.2 10/13/20 07:13: WBC 11.8 H, RBC 3.15 L, Hgb 10.3 L, Hct 32.8 L, MCV 104.1 H, MCH 32.7 H, MCHC 31.4 L, RDW Std Deviation 54.9 H, RDW Coeff of Linette 14.5, Plt Count 245, MPV 11.4, Immature Gran % (Auto) 0.400, Neut % (Auto) 85.2 H, Lymph % (Auto) 6.2 L, [facility] % (Auto) 6.5, Eos % (Auto) 1.3, Baso % (Auto) 0.4, Absolute Neuts (auto) 10.1 H, Absolute Lymphs (auto) 0.73 L, Nucleated RBC % 0 10/13/20 07:13: Sodium 143, Potassium 3.5, Chloride 106, Carbon Dioxide 33.0 H, Anion Gap 4 L, BUN 24 H, Creatinine 1.16 H, Estim Creat Clear Calc 30.32, Est GFR (MDRD) Af Amer 58 L, Est GFR (MDRD) Non-Af 48 L, BUN/Creatinine Ratio 20.7 H, Glucose 106, Calcium 9.3, Total Bilirubin 0.40, AST 21, ALT 15, Alkaline Phosphatase 68, Total Protein 6.6, Albumin 2.3 L, Globulin 4.3 H, Albumin/Globulin Ratio 0.5 L Current Medications Acetaminophen (Acetaminophen 500 Mg Tablet) 1,000 mg PO Q8H PRN PRN Reason: Pain 1-10 or Fever Last Admin: 10/11/20 21:15 Dose: 1,000 mg Documented by: Albuterol Sulfate (Albuterol Sulfate 18 Gm Inhaler (200 Puffs)) 2 puff IH Q2H PRN PRN PRN Reason: SHORTNESS OF BREATH Albuterol/Ipratropium (Ipratropium/Albuterol Sulfate 3 Ml Ampul.Neb) 3 ml INHALATION Q4HWA.RT [facility] Last Admin: 10/13/20 07:30 Dose: 3 ml Documented by: Aspirin (Aspirin 81 Mg Tab.Chew) 81 mg PO DAILY [facility] Last Admin: 10/12/20 09:03 Dose: 81 mg Documented by: Atorvastatin Calcium (Atorvastatin Calcium 40 Mg Tablet) 40 mg PO DAILY@2200 [facility] Last Admin: 10/12/20 20:41 Dose: 40 mg Documented by: Budesonide (Budesonide Respules 0.5 Mg/2 Ml Ampul.Neb.) 0.5 mg INHALATION Q12H.RT [facility] Last Admin: 10/12/20 19:01 Dose: 0.5 mg Documented by: Buspirone HCl (Buspirone 15 Mg Tablet) 15 mg PO DAILY [facility] Last Admin: 10/12/20 09:03 Dose: 15 mg Documented by: Enoxaparin Sodium (Enoxaparin 30 Mg/0.3 Ml Syringe) 30 mg SC DAILY [facility] Last Admin: 10/12/20 09:03 Dose: 30 mg Documented by: Famotidine (Famotidine 20 Mg Tablet) 20 mg PO DAILY [facility] Last Admin: 10/12/20 09:03 Dose: 20 mg Documented by: Fluticasone Propionate (Fluticasone 0.05% 1 [place] Nasal.Sry) 1 spray NASAL BID [facility] Last Admin: 10/12/20 20:43 Dose: 1 spray Documented by: Sodium Chloride () 250 mls @ 15 mls/hr IV .[id number] PRN PRN Reason: Saline Flush Last Infusion: 10/09/20 07:24 Dose: Infused Documented by: Sodium Chloride () 250 mls @ 15 mls/hr IV .[id number] PRN PRN Reason: Additional IVPB Infusion Isosorbide Mononitrate (Isosorbide Mononitrate 30 Mg Tablet) 30 mg PO DAILY [facility] Last Admin: 10/12/20 09:03 Dose: 30 mg Documented by: Lactobacillus Acidophilus (Lactobacillus Acidophilus) 1 tablet PO DAILY [facility] Last Admin: 10/12/20 09:03 Dose: 1 tablet Documented by: Lorazepam (Lorazepam 0.5 Mg Tablet) 0.5 mg PO Q6H PRN PRN PRN Reason: ANXIETY Last Admin: 10/13/20 06:45 Dose: 0.5 mg Documented by: Miscellaneous Information (Inhaler, Assist Devices 1 Each Spacer) 0 each INHALATION PRN PRN PRN Reason: WITH INHALER Multivitamins (Multivitamins,Therapeutic Tablet) 1 tablet PO DAILY [facility] Last Admin: 10/12/20 09:03 Dose: 1 tablet Documented by: Nystatin (Nystatin 500,000 Unit/5 Ml Udc) 500,000 unit PO 4X/DAY [facility] Last Admin: 10/12/20 20:41 Dose: 500,000 unit Documented by: Paroxetine HCl (Paroxetine Cr 12.5 Mg Tablet) 37.5 mg PO DAILY [facility] Last Admin: 10/12/20 09:12 Dose: 37.5 mg Documented by: Polyethylene Glycol (Polyethylene Glycol 3350 17 Gm Packet) 17 gm PO DAILY [facility] Last Admin: 10/12/20 09:02 Dose: 17 gm Documented by: Sodium Chloride (0.9% Saline Lock 10 Ml Syringe) 10 - 40 ml IV UD PRN PRN Reason: SALINE FLUSH Last Admin: 10/11/20 13:26 Dose: 10 ml Documented by: Sodium Chloride (Sodium Chloride 0.65% 1 [place].Btl) 2 spray NASAL BID PRN PRN PRN Reason: NASAL DRYNESS Last Admin: 10/11/20 17:50 Dose: 2 spray Documented by: Medical Necessity - Tobacco Use Smoking Status: Former smoker Assessment/Plan All Active Problems (Last Reviewed 09/27/20 @ 13:[address] Ean Chirinos, DO) COVID-19 (Acute) Pneumonia (Acute) Pulmonary edema (Resolved) Pneumonia (Resolved) Physical debility (Acute) Dehydration (Acute) Tachycardia (Acute) RECOMMENDATIONS: 1. Continue supplemental oxygen and wean FiO2 to maintain saturations at or above 90%. 2. Completed Decadron and remdesivir 3. Continue scheduled bronchodilator and inhaled corticosteroid therapy. Resume triple therapy inhaler regimen at discharge. 4. Continue aggressive pulmonary toileting 5. Agree with slow hydration. Oxygenation appears to be tolerating well 6. Attempt Airvo during the day with BiPAP at night 7. Okay to proceed with LTAC evaluation from my perspective if patient able to tolerate Airvo during the day IMPRESSIONS: 1. Acute on chronic hypoxemic respiratory failure secondary to COVID-19 pneumonia The patient does have baseline severe COPD based upon pulmonary function studies from March 2020. She has completed her treatment course of remdesivir and remains on Decadron. I would also advise continuing scheduled bronchodilator therapy as ordered. The patient will be continued on Airvo heated high flow oxygen with plans to wean FiO2 to maintain saturations at or above 90%. Encourage incentive spirometer use and mobilize patient as tolerated. There is no evidence of pulmonary embolism identified on CTA chest. Patient appears to be improving with discontinuation of diuretic therapy and aggressive pulmonary toileting. If patient is able to tolerate Airvo during the day with BiPAP at night, LTAC disposition would be a consideration early next week. 2. Recent hip surgery/advanced age/hypertension/hyperlipidemia/anxiety Complicates care, management, recovery and prognosis. Continue home medications as indicated. Inpatient E&M: 13513 [facility] Hosp L3
[2020-10-13] MEDS: PARoxetine CR 12.5 MG Tablet 37.5 MG PO (08:40)
[2020-10-13] MEDS: NYSTATIN 500,000 UNIT/5 ML UDC 500000 UNIT PO ×4 (08:40→20:35)
[2020-10-13] MEDS: Enoxaparin 30 MG/0.3 ML Syringe SC (08:40)
[2020-10-13] MEDS: Isosorbide Mononitrate 30 MG Tablet PO (08:41)
[2020-10-13] MEDS: Multivitamins,Therapeutic Tablet 1 TABLET PO (08:41)
[2020-10-13] MEDS: Polyethylene Glycol 3350 17 GM PACKET PO (08:41)
[2020-10-13] MEDS: Aspirin 81 MG TAB.CHEW PO (08:41)
[2020-10-13] MEDS: Famotidine 20 MG Tablet PO (08:41)
[2020-10-13] MEDS: busPIRone 15 MG TABLET PO (08:41)
[2020-10-13] MEDS: Fluticasone 0.05% 1 SPRAY NASAL.SRY NASAL ×2 (08:41→20:35)
--- NOTE | 2020-10-13 11:19 | PN_ITS ---
Patient Problems: Active and Suspected Problems (Last Reviewed 09/27/20 @ 13:[address] Ean Chirinos, DO) COVID-19 (Acute) Pneumonia (Acute) Reason for Visit: Follow up on respiratory failure/acute COVID-19 pneumonia/COPD Subjective: Patient was seen and examined. No other acute events overnight. She was started on vest therapy with some improvement Objective: Physical exam: General: Alert, Cooperative, No apparent distress, on Airvo HEENT: Atraumatic, Normocephalic Oral: No Gingival or Mucosal Lesions/ Ulcerations Neck: Supple, No Nodes, Trachea Midline Lungs: Diminished Cardiovascular: Regular rate, Regular Rhythm Abdomen: Bowel Sounds Present, Soft, Non Tender Extremities: No clubbing, No cyanosis, No edema Skin: No breakdown Musculoskeletal: No Tenderness to Palpation of Joints or Extremities Lymphatic: No Cervical, Supraclavicular, or Inguinal Adenopathy Neurological: Cranial nerves II-XII grossly intact, Neuro grossly intact Psych/Mental Status: Normal Affect, Appropriate Vitals/I&O's: Vital Signs Temp Pulse Resp BP Pulse Ox 98.3 F 95 25 H 118/72 96 10/13/20 10:30 10/13/20 11:05 10/13/20 11:05 10/13/20 10:30 10/13/20 11:05 Oxygen Flow Rate (L/min) 50 Oxygen Delivery Method Airvo Weight: 50.5 kg Body Mass Index (BMI) 19.7 Intake and Output for Last 24 Hours 10/11/20 10/12/20 10/13/20 23:59 23:59 23:59 Intake Total 1651.25 / 1711.25 1020 / 1260 420 / 420 Balance 1651.25 / 1711.25 1020 / 1260 420 / 420 Laboratory Results 10/11/20 05:50: Ionized Calcium 6.4 H 10/13/20 07:13: WBC 11.8 H, RBC 3.15 L, Hgb 10.3 L, Hct 32.8 L, MCV 104.1 H, MCH 32.7 H, MCHC 31.4 L, RDW Std Deviation 54.9 H, RDW Coeff of Linette 14.5, Plt Count 245, MPV 11.4, Immature Gran % (Auto) 0.400, Neut % (Auto) 85.2 H, Lymph % (Auto) 6.2 L, [place] % (Auto) 6.5, Eos % (Auto) 1.3, Baso % (Auto) 0.4, Absolute Neuts (auto) 10.1 H, Absolute Lymphs (auto) 0.73 L, Nucleated RBC % 0 10/13/20 07:13: Sodium 143, Potassium 3.5, Chloride 106, Carbon Dioxide 33.0 H, Anion Gap 4 L, BUN 24 H, Creatinine 1.16 H, Estim Creat Clear Calc 30.32, Est GFR (MDRD) Af Amer 58 L, Est GFR (MDRD) Non-Af 48 L, BUN/Creatinine Ratio 20.7 H , Glucose 106, Calcium 9.3, Total Bilirubin 0.40, AST 21, ALT 15, Alkaline Phosphatase 68, Total Protein 6.6, Albumin 2.3 L, Globulin 4.3 H, Albumin/Globulin Ratio 0.5 L Current Medications Acetaminophen (Acetaminophen 500 Mg Tablet) 1,000 mg PO Q8H PRN PRN Reason: Pain 1-10 or Fever Last Admin: 10/11/20 21:15 Dose: 1,000 mg Documented by: Albuterol Sulfate (Albuterol Sulfate 18 Gm Inhaler (200 Puffs)) 2 puff IH Q2H PRN PRN PRN Reason: SHORTNESS OF BREATH Albuterol/Ipratropium (Ipratropium/Albuterol Sulfate 3 Ml Ampul.Neb) 3 ml INHALATION Q4HWA.RT [facility] Last Admin: 10/13/20 11:04 Dose: 3 ml Documented by: Aspirin (Aspirin 81 Mg Tab.Chew) 81 mg PO DAILY [facility] Last Admin: 10/13/20 08:41 Dose: 81 mg Documented by: Atorvastatin Calcium (Atorvastatin Calcium 40 Mg Tablet) 40 mg PO DAILY@2200 [facility] Last Admin: 10/12/20 20:41 Dose: 40 mg Documented by: Budesonide (Budesonide Respules 0.5 Mg/2 Ml Ampul.Neb.) 0.5 mg INHALATION Q12H.RT [facility] Last Admin: 10/12/20 19:01 Dose: 0.5 mg Documented by: Buspirone HCl (Buspirone 15 Mg Tablet) 15 mg PO DAILY [facility] Last Admin: 10/13/20 08:41 Dose: 15 mg Documented by: Enoxaparin Sodium (Enoxaparin 30 Mg/0.3 Ml Syringe) 30 mg SC DAILY [facility] Last Admin: 10/13/20 08:40 Dose: 30 mg Documented by: Famotidine (Famotidine 20 Mg Tablet) 20 mg PO DAILY [facility] Last Admin: 10/13/20 08:41 Dose: 20 mg Documented by: Fluticasone Propionate (Fluticasone 0.05% 1 [place] Nasal.Sry) 1 spray NASAL BID [facility] Last Admin: 10/13/20 08:41 Dose: 1 spray Documented by: Sodium Chloride () 250 mls @ 15 mls/hr IV .[id number] PRN PRN Reason: Saline Flush Last Infusion: 10/09/20 07:24 Dose: Infused Documented by: Sodium Chloride () 250 mls @ 15 mls/hr IV .[id number] PRN PRN Reason: Additional IVPB Infusion Isosorbide Mononitrate (Isosorbide Mononitrate 30 Mg Tablet) 30 mg PO DAILY [facility] Last Admin: 10/13/20 08:41 Dose: 30 mg Documented by: Lactobacillus Acidophilus (Lactobacillus Acidophilus) 1 tablet PO DAILY [facility] Last Admin: 10/12/20 09:03 Dose: 1 tablet Documented by: Lorazepam (Lorazepam 0.5 Mg Tablet) 0.5 mg PO Q6H PRN PRN PRN Reason: ANXIETY Last Admin: 10/13/20 06:45 Dose: 0.5 mg Documented by: Miscellaneous Information (Inhaler, Assist Devices 1 Each Spacer) 0 each INHALATION PRN PRN PRN Reason: WITH INHALER Multivitamins (Multivitamins,Therapeutic Tablet) 1 tablet PO DAILY [facility] Last Admin: 10/13/20 08:41 Dose: 1 tablet Documented by: Nystatin (Nystatin 500,000 Unit/5 Ml Udc) 500,000 unit PO 4X/DAY [facility] Last Admin: 10/13/20 08:40 Dose: 500,000 unit Documented by: Paroxetine HCl (Paroxetine Cr 12.5 Mg Tablet) 37.5 mg PO DAILY [facility] Last Admin: 10/13/20 08:40 Dose: 37.5 mg Documented by: Polyethylene Glycol (Polyethylene Glycol 3350 17 Gm Packet) 17 gm PO DAILY [facility] Last Admin: 10/13/20 08:41 Dose: 17 gm Documented by: Sodium Chloride (0.9% Saline Lock 10 Ml Syringe) 10 - 40 ml IV UD PRN PRN Reason: SALINE FLUSH Last Admin: 10/11/20 13:26 Dose: 10 ml Documented by: Sodium Chloride (Sodium Chloride 0.65% 1 [place].Btl) 2 spray NASAL BID PRN PRN PRN Reason: NASAL DRYNESS Last Admin: 10/11/20 17:50 Dose: 2 spray Documented by: STROKE Vital Signs/Narrative: Vital Signs Temp Pulse Resp BP Pulse Ox 10/13/20 11:05 95 25 H 96 10/13/20 10:30 98.3 F 92 16 118/72 94 10/13/20 08:48 20 H 10/13/20 08:30 98.5 F 97 18 105/66 93 10/13/20 07:30 97 25 H 97 Medical Necessity - Tobacco Use Smoking Status: Former smoker Assessment/Plan All Active Problems (Last Reviewed 09/27/20 @ 13:[address] Ean Chirinos, DO) COVID-19 (Acute) Pneumonia (Acute) Pulmonary edema (Resolved) Pneumonia (Resolved) Physical debility (Acute) Dehydration (Acute) Tachycardia (Acute) 1. Acute hypoxic respiratory failure secondary to acute Covid- 19 pneumonia, remains still on high amounts of oxygen Continue with breathing treatments, encourage use of incentive spirometer. Wean off oxygen for SPO2 more than 94% 2. Acute COVID-19 pneumonia with hypoxia, remains worse, in the setting of chronic lung disease CTA of the chest was negative for acute PE Repeat chest x-ray on 10/10/20 showed progressive bibasilar infiltrates, worse on the left side superimposed on chronic scarring Off dexamethasone, breathing treatments Continue to hold Lasix 3. MARCOS, prerenal, likely secondary to dehydration/overdiuresis Cr improved to 1.19 Off Lasix and ramipril; received gentle fluids yesterday with some improvement in Cr Labs in am 4. Hypercalcemia secondary to supplements, improved Off calcium and magnesium supplements Needs to be trended 5. Acute COPD/bronchiectasis exacerbation, improved Continue management as in #1, Continue on Decadron, breathing treatments 6. Hypertension/hyperlipidemia, all remain stable Continue on atorvastatin, isosorbide, ramipril 7. Recent hip replacement for right hip femoral neck fracture, on 09/08/20 8. DVT prophylaxis with Lovenox subcu 9. Disposition: DC to LTACH when bed is available Inpatient E&M: 16445 Subs Hosp L3
[2020-10-13] MEDS: Budesonide Respules 0.5 MG/2 ML AMPUL.NEB. INHALATION (18:49)
[2020-10-13] MEDS: Atorvastatin Calcium 40 MG Tablet PO (20:35)
[2020-10-14] VITALS (9 sets, daily range): BP systolic 101–144; BP diastolic 53–74; PULSE 86–101; RESP 12–23; TEMP 36.7–37.3; O2SAT 91–95
[2020-10-14 05:36] LABS: Absolute Lymphocyte Count 1.17 X10^3/uL (0.83-4.51); Absolute Neutrophil Count 7.8 X10^3/uL (2.0-7.7); Basophil# 0.06 X10^3/uL; Basophil% 0.6 % (0-1); Hemoglobin 10.2 g/dL (12.0-15.0); Lymphocyte # 1.17 X10^3/ul (4.0); Lymphocyte % 11.7 % (19-41); Mean Corp Hgb Conc 31.9 g/dL (32-36); Mean Corpuscular Hgb 32.4 pg (27.0-32.0); Mean Corpuscular Volume 101.6 fL (81-99); Monocyte# 0.74 X10^3/uL; Monocyte% 7.4 % (0-10); NRBC Flagged by Analyzer 0 % (0-5); Neutrophil # 7.79 X10^3/uL (2.7-7.7); Platelet Count 236 K/mm3 (150-450); RBC Distribution Width CV 14.3 % (11.6-14.6); RBC Distribution Width SD 53.1 fl (35.1-43.9); Red Blood Count 3.15 M/mm3 (4.2-5.4)
--- NOTE | 2020-10-14 05:50 | NURSING ---
Pt cleaned of urinary incontinence, O2 sat dropped to 67%, pt pulled up in bed and HOB raised; pt encouraged to breathe deeply through her nose. O2 sat only recovers to 77-78% and to 81% briefly. BiPAP applied w/FiO2 at 65%. Pt recovers after 2min to 91%. BiPAP left in place, RT Dunia notified of application and O2 settings.
[2020-10-14 06:01] LABS: ALB/GLOB Ratio 0.6 RATIO (0.9-2.4); AST(SGOT) 19 U/L (15-37); Alanine Aminotransfer ALT/SGPT 16 U/L (13-56); Albumin, Serum 2.3 g/dL (3.2-5.0); Alkaline Phosphatase 65 U/L (45-117); Anion Gap 5 (5-15); BUN 22 mg/dL (7-18); BUN/Creat Ratio 22.1 RATIO (10-20); Calcium,Total 9.1 mg/dL (8.5-10.1); Chloride 107 mmol/L (98-107); EST Glomerular Filtration Rate 57 mL/min (>60); Est Glom Filt Rate - Afr Amer 69 mL/min (>60); Estimated Creatinine Clearance 35.17 ml/min; Globulin 3.6 g/dL (2.2-4.2); Glucose 97 mg/dL (74-106); Potassium 3.9 mmol/L (3.5-5.1); Protein, Total 5.9 g/dL (6.4-8.2); Sodium Level 144 mmol/L (136-145)
--- NOTE | 2020-10-14 06:57 | PCM.PN.PUL ---
Patient Problems: Active and Suspected Problems (Last Reviewed 09/27/20 @ 13:[address] Ean Chirinos, DO) COVID-19 (Acute) pneumonia Pneumonia (Acute) COVID-19 Acute and chronic respiratory failure with hypoxia (Acute) Subjective: The patient was seen and examined at the bedside this morning. Events from the last 24 hours have been reviewed. The patient is currently afebrile, hemodynamically stable and maintaining appropriate oxygen saturations on Airvo heated high flow oxygen with an FiO2 requirement of 74%. The patient did for short period of time have to be placed on BiPAP this morning as she readily desaturated when being cleaned up this morning by nursing staff. Objective: The patient's most recent lab work, culture data and imaging studies have all been personally reviewed. Coronavirus PCR was positive on September 27. - Physical Exam Vitals/I&O's: Vital Signs Temp Pulse Resp BP Pulse Ox 98.4 F 86 22 H 144/74 H 92 10/14/20 02:38 10/14/20 02:57 10/14/20 02:57 10/14/20 02:38 10/14/20 02:57 Oxygen Flow Rate (L/min) 50 Oxygen Delivery Method Airvo Weight: 111 lb 5.335 oz Body Mass Index (BMI) 19.7 Intake and Output for Last 24 Hours 10/12/20 10/13/20 10/14/20 23:59 23:59 23:59 Intake Total 1020 / 1260 420 / 420 Balance 1020 / 1260 420 / 420 General: Alert, Cooperative HEENT: Atraumatic, Normocephalic Oral: No Gingival or Mucosal Lesions/ Ulcerations Neck: Supple, No Nodes, Trachea Midline Lungs: Diminished Cardiovascular: Regular rate, Regular Rhythm Abdomen: Bowel Sounds Present, Soft, Non Tender Extremities: No clubbing, No cyanosis, No edema Skin: No breakdown Musculoskeletal: No Tenderness to Palpation of Joints or Extremities Lymphatic: No Cervical, Supraclavicular, or Inguinal Adenopathy Neurological: Cranial nerves II-XII grossly intact, Neuro grossly intact Psych/Mental Status: Flat Affect Labs (Last 48 Hours) 10/11/20 10/12/20 10/12/20 05:50 07:57 07:57 WBC 10.7 RBC 2.94 L Hgb 9.6 L Hct 30.3 L MCV 103.1 H MCH 32.7 H MCHC 31.7 L RDW Std Deviation 54.4 H RDW Coeff of Linette 14.4 Plt Count 236 MPV 11.5 Immature Gran % (Auto) Neut % (Auto) Lymph % (Auto) [place] % (Auto) Eos % (Auto) Baso % (Auto) Absolute Neuts (auto) Absolute Lymphs (auto) Nucleated RBC % Sodium 142 Potassium 3.7 Chloride 105 Carbon Dioxide 34.0 H Anion Gap 3 L BUN 33 H Creatinine 1.29 H Estim Creat Clear Calc 27.27 Est GFR (MDRD) Af Amer 51 L Est GFR (MDRD) Non-Af 42 L BUN/Creatinine Ratio 25.6 H Glucose 87 Calcium 9.2 Ionized Calcium 6.4 H Total Bilirubin AST ALT Alkaline Phosphatase Total Protein Albumin Globulin Albumin/Globulin Ratio 10/13/20 10/13/20 10/14/20 07:13 07:13 05:28 WBC 11.8 H 10.0 RBC 3.15 L 3.15 L Hgb 10.3 L 10.2 L Hct 32.8 L 32.0 L MCV 104.1 H 101.6 H MCH 32.7 H 32.4 H MCHC 31.4 L 31.9 L RDW Std Deviation 54.9 H 53.1 H RDW Coeff of [place]ette 14.5 14.3 Plt Count 245 236 MPV 11.4 11.0 Immature Gran % (Auto) 0.400 0.300 Neut % (Auto) 85.2 H 78.0 H Lymph % (Auto) 6.2 L 11.7 L [place] % (Auto) 6.5 7.4 Eos % (Auto) 1.3 2.0 Baso % (Auto) 0.4 0.6 Absolute Neuts (auto) 10.1 H 7.8 H Absolute Lymphs (auto) 0.73 L 1.17 Nucleated RBC % 0 0 Sodium 143 Potassium 3.5 Chloride 106 Carbon Dioxide 33.0 H Anion Gap 4 L BUN 24 H Creatinine 1.16 H Estim Creat Clear Calc 30.32 Est GFR (MDRD) Af Amer 58 L Est GFR (MDRD) Non-Af 48 L BUN/Creatinine Ratio 20.7 H Glucose 106 Calcium 9.3 Ionized Calcium Total Bilirubin 0.40 AST 21 ALT 15 Alkaline Phosphatase 68 Total Protein 6.6 Albumin 2.3 L Globulin 4.3 H Albumin/Globulin Ratio 0.5 L 10/14/20 05:28 WBC RBC Hgb Hct MCV MCH MCHC RDW Std Deviation RDW Coeff of Linette Plt Count MPV Immature Gran % (Auto) Neut % (Auto) Lymph % (Auto) [place] % (Auto) Eos % (Auto) Baso % (Auto) Absolute Neuts (auto) Absolute Lymphs (auto) Nucleated RBC % Sodium 144 Potassium 3.9 Chloride 107 Carbon Dioxide 32.0 Anion Gap 5 BUN 22 H Creatinine 1.00 Estim Creat Clear Calc 35.17 Est GFR (MDRD) Af Amer 69 Est GFR (MDRD) Non-Af 57 L BUN/Creatinine Ratio 22.1 H Glucose 97 Calcium 9.1 Ionized Calcium Total Bilirubin 0.30 AST 19 ALT 16 Alkaline Phosphatase 65 Total Protein 5.9 L Albumin 2.3 L Globulin 3.6 Albumin/Globulin Ratio 0.6 L Clinical Impression(s) from Imaging Studies Chest X-Ray 09/27/20 10:30 IMPRESSION: Persistent bibasilar infiltrates worse on the left side although there has been moderate clearing as compared to prior study. This is superimposed on emphysematous changes and pulmonary scarring. Electronically Signed: Shreyas Westbrook MD at 10:52 EST , Service support , Chest CTA 09/27/20 10:36 IMPRESSION: No evidence of pulmonary embolism. Improved aeration of both lungs as compared to prior study with residual changes present superimposed on emphysematous changes and bronchiectasis. Electronically Signed: Shreyas Westbrook MD at 11:13 EST , Service support , Chest X-Ray 10/10/20 13:45 IMPRESSION: Progressive bibasilar infiltrates worse on the left side superimposed on chronic scarring. Electronically Signed: Shreyas Westbrook MD at 14:12 EST , Service support , Current Medications Acetaminophen (Acetaminophen 500 Mg Tablet) 1,000 mg PO Q8H PRN PRN Reason: Pain 1-10 or Fever Last Admin: 10/11/20 21:15 Dose: 1,000 mg Documented by: Albuterol Sulfate (Albuterol Sulfate 18 Gm Inhaler (200 Puffs)) 2 puff IH Q2H PRN PRN PRN Reason: SHORTNESS OF BREATH Albuterol/Ipratropium (Ipratropium/Albuterol Sulfate 3 Ml Ampul.Neb) 3 ml INHALATION Q4HWA.RT [facility] Last Admin: 10/13/20 18:49 Dose: 3 ml Documented by: Aspirin (Aspirin 81 Mg Tab.Chew) 81 mg PO DAILY [facility] Last Admin: 10/13/20 08:41 Dose: 81 mg Documented by: Atorvastatin Calcium (Atorvastatin Calcium 40 Mg Tablet) 40 mg PO DAILY@2200 [facility] Last Admin: 10/13/20 20:35 Dose: 40 mg Documented by: Budesonide (Budesonide Respules 0.5 Mg/2 Ml Ampul.Neb.) 0.5 mg INHALATION Q12H.RT [facility] Last Admin: 10/13/20 18:49 Dose: 0.5 mg Documented by: Buspirone HCl (Buspirone 15 Mg Tablet) 15 mg PO DAILY [facility] Last Admin: 10/13/20 08:41 Dose: 15 mg Documented by: Enoxaparin Sodium (Enoxaparin 30 Mg/0.3 Ml Syringe) 30 mg SC DAILY [facility] Last Admin: 10/13/20 08:40 Dose: 30 mg Documented by: Famotidine (Famotidine 20 Mg Tablet) 20 mg PO DAILY [facility] Last Admin: 10/13/20 08:41 Dose: 20 mg Documented by: Fluticasone Propionate (Fluticasone 0.05% 1 [place] Nasal.Sry) 1 spray NASAL BID [facility] Last Admin: 10/13/20 20:35 Dose: 1 spray Documented by: Sodium Chloride () 250 mls @ 15 mls/hr IV .[id number] PRN PRN Reason: Saline Flush Last Infusion: 10/09/20 07:24 Dose: Infused Documented by: Sodium Chloride () 250 mls @ 15 mls/hr IV .[id number] PRN PRN Reason: Additional IVPB Infusion Isosorbide Mononitrate (Isosorbide Mononitrate 30 Mg Tablet) 30 mg PO DAILY [facility] Last Admin: 10/13/20 08:41 Dose: 30 mg Documented by: Lactobacillus Acidophilus (Lactobacillus Acidophilus) 1 tablet PO DAILY [facility] Last Admin: 10/12/20 09:03 Dose: 1 tablet Documented by: Lorazepam (Lorazepam 0.5 Mg Tablet) 0.5 mg PO Q6H PRN PRN PRN Reason: ANXIETY Last Admin: 10/13/20 13:06 Dose: 0.5 mg Documented by: Miscellaneous Information (Inhaler, Assist Devices 1 Each Spacer) 0 each INHALATION PRN PRN PRN Reason: WITH INHALER Multivitamins (Multivitamins,Therapeutic Tablet) 1 tablet PO DAILY [facility] Last Admin: 10/13/20 08:41 Dose: 1 tablet Documented by: Nystatin (Nystatin 500,000 Unit/5 Ml Udc) 500,000 unit PO 4X/DAY [facility] Last Admin: 10/13/20 20:35 Dose: 500,000 unit Documented by: Paroxetine HCl (Paroxetine Cr 12.5 Mg Tablet) 37.5 mg PO DAILY [facility] Last Admin: 10/13/20 08:40 Dose: 37.5 mg Documented by: Polyethylene Glycol (Polyethylene Glycol 3350 17 Gm Packet) 17 gm PO DAILY [facility] Last Admin: 10/13/20 08:41 Dose: 17 gm Documented by: Sodium Chloride (0.9% Saline Lock 10 Ml Syringe) 10 - 40 ml IV UD PRN PRN Reason: SALINE FLUSH Last Admin: 10/11/20 13:26 Dose: 10 ml Documented by: Sodium Chloride (Sodium Chloride 0.65% 1 [place].Btl) 2 spray NASAL BID PRN PRN PRN Reason: NASAL DRYNESS Last Admin: 10/11/20 17:50 Dose: 2 spray Documented by: Medical Necessity - Tobacco Use Smoking Status: Former smoker Assessment/Plan All Active Problems (Last Reviewed 09/27/20 @ 13:[address] Ean Chirinos, DO) COVID-19 (Acute) Pneumonia (Acute) Acute and chronic respiratory failure with hypoxia (Acute) Pulmonary edema (Resolved) Pneumonia (Resolved) Physical debility (Acute) Dehydration (Acute) Tachycardia (Acute) RECOMMENDATIONS: 1. Continue supplemental oxygen and wean FiO2 to maintain saturations at or above 90%. 2. Continue Decadron. 3. Continue scheduled bronchodilator therapy. Resume triple therapy inhaler regimen at discharge. 4. Encourage incentive spirometer use and mobilize patient as tolerated. 5. Continue aggressive bronchopulmonary hygiene. IMPRESSIONS: 1. Acute on chronic hypoxemic respiratory failure secondary to COVID-19 pneumonia The patient does have baseline severe COPD based upon pulmonary function studies from March 2020. She has completed her treatment course of remdesivir and remains on Decadron. I would also advise continuing scheduled bronchodilator therapy as ordered. The patient will be continued on Airvo heated high flow oxygen with plans to wean FiO2 to maintain saturations at or above 90%. Encourage incentive spirometer use and mobilize patient as tolerated. There is no evidence of pulmonary embolism identified on CTA chest. Continue bronchopulmonary hygiene. 2. Recent hip surgery/advanced age/hypertension/hyperlipidemia/anxiety Complicates care, management, recovery and prognosis. Continue home medications as indicated. This note was generated with [employer] dictation software. It may contain incorrect words, spelling, and punctuation that were not noted in checking the note before signing. Inpatient E&M: [id number] [facility] L3
[2020-10-14] MEDS: Ipratropium/Albuterol Sulfate 3 ML AMPUL.NEB INHALATION ×3 (06:58→15:26)
[2020-10-14] MEDS: Budesonide Respules 0.5 MG/2 ML AMPUL.NEB. INHALATION (06:58)
[2020-10-14] MEDS: busPIRone 15 MG TABLET PO (09:44)
[2020-10-14] MEDS: Fluticasone 0.05% 1 SPRAY NASAL.SRY NASAL (09:44)
[2020-10-14] MEDS: Aspirin 81 MG TAB.CHEW PO (09:44)
[2020-10-14] MEDS: Enoxaparin 30 MG/0.3 ML Syringe SC (09:45)
[2020-10-14] MEDS: Isosorbide Mononitrate 30 MG Tablet PO (09:45)
[2020-10-14] MEDS: Famotidine 20 MG Tablet PO (09:46)
[2020-10-14] MEDS: NYSTATIN 500,000 UNIT/5 ML UDC 500000 UNIT PO ×3 (09:46→18:21)
[2020-10-14] MEDS: PARoxetine CR 12.5 MG Tablet 37.5 MG PO (09:46)
[2020-10-14] MEDS: Multivitamins,Therapeutic Tablet 1 TABLET PO (09:46)
[2020-10-14] MEDS: Polyethylene Glycol 3350 17 GM PACKET PO (09:51)
--- NOTE | 2020-10-14 11:10 | CASEMGMT ---
DIANE CM Note: Message received from Annie @ [facility] re: probable bed availability today. Updated clinical faxed to Annie and physician updated. He has not seen pt yet and will update when she has been approved for discharge. Kaylee BAXTERN RN ACM
--- NOTE | 2020-10-14 13:55 | CASEMGMT ---
Addendum entered by Tanmay Hernandez 10/14/20 14:41: Dr. Sol spoke with patient earlier re: dc today to [facility]. Kaylee TERRY Addendum entered by Tanmay Hernandez 10/14/20 14:00: nurse to nurse report # [phone]. Kaylee TERRY Original Note: RN CM Note: Per Dr. Sol, pt is medically stable for discharge. [facility] has a bed available today. Per williams, would like pt arrival after 7 pm, so pickup 6 pm or after. Per Williams, patient can transport with [facility]. Current settings recommended by [facility] for transport are 14/10 rate of 12 and 50% O2. -Williams will contact daughter re: dc today -call to physicians ambulance to set up transport for around 6 pm tonight. information taken, and rep jessica work on setting up and call back with confirmation. Kaylee ALAMO
--- NOTE | 2020-10-14 14:04 | PCM.TXEXTCAR ---
- Diet 09/27/20 13:11 Diet: Regular - General Food consistency:: Regular Liquid Consistency:: Regular/Thin Type of Dietary Supplement:: Ensure Enlive Diet Comments: 240 ml Ensure Enlive w/ pt meals. - Routine Orders/Code Status O2 Frequency: , Bipap at nite 14/10 with FIO2 .65 Keep PO Greater than or Equal to (%): 90 Code Status: DNRCC-A - with intubation - Wound(s) R hip Wound Type: Surgical Incision - hip replacement 09/08/20 - Therapies Weight Bearing: Weight bearing as tolerated Physical Therapy: Eval and Treat Occupational Therapy: Eval and Treat - Problem/Diagnosis (1) Acute and chronic respiratory failure with hypoxia Status: Acute (2) COVID-19 Status: Acute Comment: pneumonia (3) Pneumonia Status: Acute Comment: COVID-19 (4) COPD (chronic obstructive pulmonary disease) Status: Chronic (5) Anxiety and depression Status: Chronic - Allergies/Procedures Done in Hospital Allergies/Adverse Reactions: Allergies cefaclor [From Ceclor] Allergy (Verified 09/27/20 09:09) Hives Procedures: None - Type of Care/Length of Stay Estimated LOS: More Than 30 Days Type of Care Needed: LTAC Rehab Potential: Fair Prognosis: Fair - Additional Orders/Day of Discharge H&P will serve as current which was dated: 09/27/20 Day of Discharge: 10/14/20 - Dietary and Speech Recommendations Dietitian Recommendations/Changes: Continue Regular diet and ensure w/ meals - increase ensure enlive from 120 ml to 240 ml w/ meals per pt request - Follow Up Care Primary Care Physician: Nicci King DO [Primary Care Provider] -
--- NOTE | 2020-10-14 14:43 | CASEMGMT ---
RN CM Note: Physician's ambulance has patient set up for 6 pm hot die picker time from [facility] to go to [facility] in [place]. Ambulance form on packet. [facility] settings listed as well as address for [facility]. -orders and med list were faxed and original in packet for transfer. -Mariia updated on orders being faxed. per Mariia she spoke with daughter who is aware of transfer today and no concerns voiced. Kaylee BAXTERN RN ACM
--- NOTE | 2020-10-14 16:00 | NURSING ---
ATTEMPTED TO CALL REPORT TO [facility], BUT WAS INFORMED THAT STAFF WERE ALL BUSY AND THEY WOULD RETURN CALL. CALL WAS ATTEMPTED AT BOTH 1500 AND 1600.
--- NOTE | 2020-10-15 18:06 | DS.PCM_ITS ---
Discharge Date and Diagnosis - Problem List Patient Problems: Active and Suspected Problems (Last Reviewed 09/27/20 @ 13:[address] Ean Chirinos DO) COVID-19 (Acute) pneumonia Pneumonia (Acute) COVID-19 Acute and chronic respiratory failure with hypoxia (Acute) Date of Admission: 09/27/20 Date of Discharge: 10/14/20 - Primary Discharge Diagnosis Acute Problems: Active Problems (Last Reviewed 09/27/20 @ 13:[address] Ean Chirinos DO) #1 acute COVID-19 pneumonia #2 acute hypoxic respiratory failure secondary to acute COVID-19 pneumonia #3 acute kidney injury #4 acute exacerbation of COPD #5 essential hypertension #6 acute debility secondary to #1 Patient was not felt to have bacterial pneumonia - Secondary Discharge Diagnosis Chronic Problems: Chronic Problems (Last Reviewed 09/27/20 @ 13:[address] Ean Chirinos DO) Closed right hip fracture (Chronic) Former tobacco use (Chronic) She quit in 1994 COPD (chronic obstructive pulmonary disease) (Chronic) Anxiety and depression (Chronic) CKD (chronic kidney disease) (Chronic) ? unclear. The GFR came up to 86 with hydration. 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 Patient has a history of COPD and is on chronic oxygen at home. She had been recently admitted due to a right hip fracture and underwent a total hip replacement, this recovery was complicated with pneumonia and she was discharged home approximately week before she was seen in the emergency room. Patient stated that she got her first Covid vaccination and awoke and was dizzy and had a fever the next day. Work-up in the emergency room showed a leukocytosis at 13.4, Covid antigen test was positive, she underwent a CTA which showed an improving left lower lobe infiltrate but also showed a new right lower lobe infiltrate. No evidence of pulmonary embolism was noted. Patient was admitted and placed on IV antibiotics, she received a dose of Decadron in the emergency room, she was seen in consultation by pulmonary medicine and infectious diseases. Infectious diseases did not feel the patient had any evidence of bacterial infection, she was kept on antibiotics briefly in the hospital but these were finally stopped. Patient was placed on remdesivir and her dexamethasone was continued. Patient's respiratory status remained tenuous during her hospitalization and she underwent a long protracted course in the hospital. Due to the patient being on high flow oxygen, it was felt that she would benefit from hospitalization at an LTAC and the patient agreed. On 10/14/2020, patient was seen and examined: On examination she appeared frail and elderly, she does not appear to be in any distress. Vital signs as documented. Skin warm and dry and without overt rashes. Neck without JVD, thyroid appears normal, trachea is midline, neck is supple. Lungs clear, normal air movement was noted. Heart exam notable for regular rhythm, normal sounds and absence of murmurs, rubs or gallops. Abdomen unremarkable and without evidence of organomegaly, masses, or abdominal aortic enlargement, bowel sounds are present in all 4 quadrants, no abdominal tenderness was noted. Extremities nonedematous, no cyanosis was noted, no clubbing was noted. Neuro: Cranial nerves II through XII are grossly intact, no focal motor deficits were noted, sensation to light touch and pinprick is intact, motor exam 5/5 throughout. Psych: Patient is alert and oriented x3, she does not appear anxious or depressed, she does not appear agitated. On 10/14/2020, patient appears stable for transfer to an LTAC for further care, prognosis was guarded. Patient Problems: Active and Suspected Problems (Last Reviewed 09/27/20 @ 13:[address] Ean Chirinos, DO) COVID-19 (Acute) pneumonia Pneumonia (Acute) COVID-19 Acute and chronic respiratory failure with hypoxia (Acute) - Physical Exam Vitals/I&O's: Vital Signs Temp Pulse Resp BP Pulse Ox 98.1 F 101 H 18 101/63 95 10/14/20 14:11 10/14/20 15:26 10/14/20 15:26 10/14/20 14:11 10/14/20 15:26 Oxygen Flow Rate (L/min) 45 Oxygen Delivery Method Airvo Weight: 50.5 kg Body Mass Index (BMI) 19.7 Intake and Output for Last 24 Hours 10/13/20 10/14/20 10/15/20 23:59 23:59 23:59 Intake Total 420 / 420 Balance 420 / 420 Home Medications: Medications to take at Discharge Atorvastatin Calcium 40 mg PO DAILY 12/28/17 Isosorbide Mononitrate [Imdur] 30 mg PO DAILY 12/28/17 Multivitamin [Daily Multiple Vitamin] 1 tab PO DAILY 12/28/17 Paroxetine HCl [Paxil Cr] 37.5 mg PO DAILY 12/28/17 lactobacillus combination no.8 3 billion cell capsule 3,000 mmu cells PO QDAY 12/30/17 buspirone 15 mg tablet 15 mg PO DAILY 30 Days #60 tab 09/22/18 Famotidine [Pepcid] 20 mg PO BID 09/09/20 Acetaminophen [Tylenol] 1,000 mg PO Q8 PRN #1 tab 09/21/20 Aspirin [Aspirin, Baby] 81 mg PO BIDCM #1 09/21/20 Albuterol Sulfate [Albuterol Sulfate HFA] 2 puff IH Q2H PRN PRN inhaler 10/14/20 Budesonide Aerosol [Pulmicort Respules] 0.5 mg INHALATION Q12H.RT ampul.neb. 10/14/20 Enoxaparin [Lovenox] 30 mg SC DAILY syringe 10/14/20 Fluticasone 0.05% [Flonase Nasal [employer]] 1 spray NASAL BID nasal.sry 10/14/20 Ipratropium/Albuterol Sulfate [Duoneb] 3 ml INHALATION Q4HWA.RT ampul.neb 10/14/20 Polyethylene Glycol 3350 [Miralax] 17 gm PO DAILY packet 10/14/20 Sodium Chloride 0.65% [[place] Nasal [employer]] 2 spray NASAL BID PRN PRN spray.btl 10/14/20 Primary Care Physician: Nicci King DO [Primary Care Provider] - Disposition: Residential Acute Care Minutes spent on discharge:: 33 Patient Condition:: Stable Medical Necessity - Tobacco Use Smoking Status: Former smoker Meaningful Use Info Meaningful Use Diagnoses (Choose all that apply): None applicable Inpatient E&M: 44398 [facility] H[facility]
== END 2020-10-14 19:40 | disposition skilled nursing facility (03) | DRG 177 ==
LOC: ED 12:13 → MS2 13:27
PROVIDERS: Internal Medicine; Internal Medicine Critical Care Medicine; Internal Medicine Infectious Disease; Emergency Provider Emergency Medicine; PCP Internal Medicine; Visit Provider Internal Medicine
DX: U07.1 COVID-19 (principal); J12.82 Pneumonia due to coronavirus disease 2019; J96.21 Acute and chronic respiratory failure with hypoxia; E44.0 Moderate protein-calorie malnutrition; J44.0 Chronic obstructive pulmonary disease with (acute) lower respiratory infection; J44.1 Chronic obstructive pulmonary disease with (acute) exacerbation; N17.9 Acute kidney failure, unspecified; Z68.1 Body mass index [BMI] 19.9 or less, adult; B37.0 Candidal stomatitis; R79.89 Other specified abnormal findings of blood chemistry; E78.00 Pure hypercholesterolemia, unspecified; E78.5 Hyperlipidemia, unspecified; E83.52 Hypercalcemia; E86.0 Dehydration; F32.9 Major depressive disorder, single episode, unspecified; F41.9 Anxiety disorder, unspecified; H81.10 Benign paroxysmal vertigo, unspecified ear; I12.9 Hypertensive chronic kidney disease with stage 1 through stage 4 chronic kidney disease, or unspecified chronic kidney disease; I25.10 Atherosclerotic heart disease of native coronary artery without angina pectoris; I34.0 Nonrheumatic mitral (valve) insufficiency; N18.9 Chronic kidney disease, unspecified; Z90.49 Acquired absence of other specified parts of digestive tract; Z99.81 Dependence on supplemental oxygen; Z87.891 Personal history of nicotine dependence; Z87.01 Personal history of pneumonia (recurrent); Z79.82 Long term (current) use of aspirin; Z79.899 Other long term (current) drug therapy; Z96.641 Presence of right artificial hip joint
CPT/HCPCS: 36415; 36600; 71045; 71275; 80048; 80053; 80202; 81001; 81002; 82330; 82803; 83605; 83735; 83880; 84075; 84145; 84484; 85025; 85027; 85379; 85610; 85730; 87040; 87086; 87426; 87449; 87635; 87804; 93005; 94002; 94003; 94640; 94660; 94667; 94668; 97110; 97116; 97162; 97165; 97530; 97535; 97802; 99285; J7030; J7040; J7050; Q9967; A4216; J1940; U0002

== ENCOUNTER 2021-04-24 15:42 | Emergency (ER) | payer MEDICARE, OTHER, SELFPAY ==
[2021-04-24 15:44] VITALS: BP 174/99; PULSE 101; RESP 16; TEMP 36.8; O2SAT 88; BMI 22.3
--- NOTE | 2021-04-24 16:32 | CT_ITS ---
STUDY: CT BRAIN WITHOUT CONTRAST REASON FOR EXAM: Female, 80 years old. Headache RADIATION DOSAGE (If Supplied By Facility): CTDIvol = ( 38.43 ) mGy, DLP = ( 727.10 ) mGycm TECHNIQUE: Transaxial CT imaging of the brain was performed without administration of intravenous contrast material. Individualized dose optimization techniques were used for this CT. COMPARISON: 04/11/2019 FINDINGS: Normal soft tissue structures. Normal calvarium. Normal size ventricles and extra-axial spaces for the patient''s age. Mild white matter microangiopathic ischemic changes of the cerebral hemispheres. Normal basal ganglia and thalami. Normal brainstem. Normal cerebellum. There is no intracranial hemorrhage. There are no findings of an acute ischemic infarction. Normal visualized paranasal sinuses. CT/Brain/Head without Contrast IMPRESSION: No acute intracranial pathology of the brain. Electronically Signed: Zane Ortiz DO at 18:01 EDT Tel [phone], Service support ,
--- NOTE | 2021-04-24 16:34 | EX.ED.DYSGE1 ---
HPI History of Present Illness Chief Complaint: Headache Informant: patient and family Onset/Context/Timing Onset: Yesterday Context: Gradual Onset Timing: Waxes and wanes Current Severity: Mild Maximum Severity: Moderate Narrative Narrative: Patient presents with headache and just not feeling right. She states she developed a headache yesterday afternoon that was generalized in location. She states headache does seem to be worse when she turns her head to the right. This afternoon she had a temperature up to 101.2. She took ibuprofen about an hour and a half ago. She denies cough or congestion. No nausea, vomiting, diarrhea, abdominal pain. She does report having increased urination last night but no dysuria. [facility] Medical History (Updated 04/24/21 @ 18:[address] Ivet Martins MD) Atherosclerotic heart disease of [place] coronary artery without angina pectoris COPD (chronic obstructive pulmonary disease) Depression Essential hypertension Nonrheumatic mitral valve regurgitation Pure hypercholesterolemia Home Medications atorvastatin 40 mg PO DAILY 12/28/17 [History Last Taken 09/07/20 08:00] isosorbide mononitrate 30 mg PO DAILY 12/28/17 [History Last Taken 09/07/20 08:00] multivitamin 1 tab PO DAILY 12/28/17 [History Last Taken 09/07/20 08:00] paroxetine HCl 37.5 mg PO DAILY 12/28/17 [History Last Taken 09/07/20 08:00] lactobacillus combination no.8 3 billion cell capsule 3,000 mmu cells PO QDAY 12/30/17 [History Last Taken 09/07/20 08:00] buspirone 15 mg tablet 15 mg PO DAILY 30 Days #60 tab 09/22/18 [History Last Taken 09/07/20 08:00] acetaminophen 1,000 mg PO Q8 PRN #1 tab 09/21/20 [Rx Last Taken Unknown] budesonide 0.5 mg INHALATION Q12H.RT ampul.neb. 10/14/20 [Rx Last Taken Unknown] aspirin 81 mg PO DAILY 04/24/21 [History Last Taken Unknown] [id number] [Trelegy Ellipta] 1 inh INHALATION DAILY 04/24/21 [History Last Taken Unknown] Allergy/AdvReac Type Severity Reaction Status Date / Time cefaclor [From [facility]] Allergy Hives Verified 04/24/21 15:44 Family History Father Myocardial infarction, Onset Age: 43 Brother Myocardial infarction, Onset Age: 52 Brother CAD (coronary artery disease) Surgical History History of cholecystectomy Social History Smoking Status: Former smoker alcohol intake: never substance use type: does not use ROS ROS ED Constitutional Constitutional ED: Reports fever(s); Denies chills Eyes Eyes: Denies change in vision ENT ENT ED: Denies sore throat Cardiovascular Cardiovascular: Denies chest pain Respiratory/Chest Respiratory/Chest: Denies cough or dyspnea Gastrointestinal Gastrointestinal: Denies abdominal pain, diarrhea, nausea or vomiting Genitourinary Genitourinary ED: Reports urinary frequency; Denies dysuria Musculoskeletal Musculoskeletal: Denies back pain Integumentary Denies rash Neurologic Neurologic: Reports headache(s); Denies paresthesias or weakness Psychiatric Psychiatric: Denies anxiety or depression Allergic/Immunologic Allergic/Immunologic ED: Denies urticaria EXAM Physical Exam Const Vital Signs: 04/24/21 15:44 04/24/21 16:37 04/24/21 18:00 Temperature 98.2 F Temperature Source Temporal Pulse Rate 101 H 87 Respiratory Rate 16 20 H Blood Pressure 174/99 H Blood Pressure Mean 124 Pulse Ox 88 97 100 Oxygen Delivery Method Room Air Nasal Cannula Room Air Oxygen Flow Rate (L/min) 4 Positive well nourished and well developed General Appearance ED: well developed HEENT Reports normocephalic and head/scalp atraumatic Eyes PERRL and EOMs intact bilaterally Neck supple Neck Narrative: No reproducible C-spine tenderness. No meningismus. Chest Wall inspection of chest normal and palpation of chest normal Resp normal respiratory effort and clear to auscultation bilaterally Cardio regular rate and regular rhythm GI normal to inspection, nondistended, normoactive bowel sounds Palpation: soft Extremity normal to inspection Neuro oriented x3 and no sensory deficits noted Sensorium / Orientation: alert Motor Exam: strength 5/5 throughout Psych mental status grossly normal Skin no rashes or lesions noted MDM MDM MDM Narrative Medical decision making narrative: Due to patient's reported fever today work-up was pursued. Lab work, urinalysis, CT head obtained. Patient had taken ibuprofen just prior to arrival. Lab Data Attestation: I reviewed the patient's lab results. Labs: Laboratory Results - last 24 hr 04/24/21 04/24/21 04/24/21 17:15 17:15 18:12 WBC 6.4 RBC 3.53 L Hgb 11.5 L Hct 35.8 L MCV 101.4 H MCH 32.6 H MCHC 32.1 RDW Std Deviation 49.8 H RDW Coeff of Linette 13.4 Plt Count 195 MPV 10.8 Immature Gran % (Auto) 0.300 Neut % (Auto) 76.1 H Lymph % (Auto) 13.2 L O'Brien % (Auto) 8.2 Eos % (Auto) 1.7 Baso % (Auto) 0.5 Absolute Neuts (auto) 4.9 Absolute Lymphs (auto) 0.84 Nucleated RBC % 0 Sodium 141 Potassium 4.0 Chloride 106 Carbon Dioxide 32.0 Anion Gap 3 L BUN 16 Creatinine 0.85 Estim Creat Clear Calc 42.21 Est GFR (MDRD) Af Amer 82 Est GFR (MDRD) Non-Af 68 BUN/Creatinine Ratio 18.8 Glucose 96 Calcium 8.8 Urine Color Yellow Urine Clarity Clear Urine pH 8.0 Ur Specific [place] 1.010 Urine Protein Negative Urine Glucose (UA) Normal Urine Ketones Negative Urine Occult Blood 10 H Urine Nitrite Negative Urine Bilirubin Negative Urine Urobilinogen Normal Ur Leukocyte Esterase Negative Urine RBC 0 SEEN Urine WBC 0 SEEN Ur Squamous Epith Cells 0 SEEN Urine Bacteria 0 SEEN Urine Mucus 0 SEEN Radiography Diagnostic Testing: Radiology Impression Brain CT 04/24/21 16:32 IMPRESSION: No acute intracranial pathology of the brain. Electronically Signed: Zane Ortiz DO at 18:01 EDT Tel [phone], Service support , Treatment and Re-Evaluation Comments:: On repeat evaluation patient resting comfortably. Test results discussed with patient and daughter at bedside. At this time I see no acute infectious etiology of her reported fever. I did advise her to continue to watch her symptoms over the next couple days and see if anything declares itself. At this time she feels back to baseline and comfortable with discharge to home. Return instructions are provided. Discharge Plan Triage Chief Complaint: Headache ED Provider: Ivet Martins Dx/Rx/DC Orders Clinical Impression: Cephalgia, Fever Instructions: ED Fever Control (Adult), ED Headache Unspecified Prescriptions: No Action lactobacillus combination no.8 [Adult Probiotic] 3 billion cell capsule 3,000 mmu cells PO QDAY RF: 0 buspirone 15 mg tablet 15 mg PO DAILY 30 Days Qty: 60 RF: 0 multivitamin 1 EACH tablet 1 tab PO DAILY RF: 0 atorvastatin 40 MG tablet 40 mg PO DAILY RF: 0 isosorbide mononitrate 30 MG tablet 30 mg PO DAILY RF: 0 paroxetine HCl 37.5 MG tablet extended release 24 hr 37.5 mg PO DAILY RF: 0 acetaminophen 500 MG tablet 1,000 mg PO Q8 PRN (Reason: Pain 1-10 Or Fever) Qty: 1 RF: 0 budesonide 0.5 MG/2 ML suspension for nebulization 0.5 mg INHALATION Q12H.RT RF: 0 Trelegy Ellipta 100-62.5-25 mcg Blister With Device 1 inh INHALATION DAILY RF: 0 aspirin 81 MG tablet,chewable 81 mg PO DAILY RF: 0 Primary Care Provider: Nicci King Referrals: Nicci King DO [Primary Care Provider] - 3-5 Days if not improving Disposition Disposition: Home, Self Care
[2021-04-24 16:37] VITALS: O2SAT 97
[2021-04-24] MEDS: 0.9% Normal Saline 1,000 ML 150 ML IV (17:14)
[2021-04-24 17:25] LABS: Absolute Lymphocyte Count 0.84 X10^3/uL (0.83-4.51); Absolute Neutrophil Count 4.9 X10^3/uL (2.0-7.7); Basophil# 0.03 X10^3/uL; Basophil% 0.5 % (0-1); Eosinophil# 0.11 X10^3/uL; Eosinophils% 1.7 % (0-5); Hematocrit 35.8 % (37-47); Hemoglobin 11.5 g/dL (12.0-15.0); Lymphocyte # 0.84 X10^3/ul (0.83-4.51); Lymphocyte % 13.2 % (19-41); Mean Corp Hgb Conc 32.1 g/dL (32-36); Mean Corpuscular Hgb 32.6 pg (27.0-32.0); Mean Corpuscular Volume 101.4 fL (81-99); Mean Platelet Vol. 10.8 fl (6.2-12.0); Monocyte# 0.52 X10^3/uL; Monocyte% 8.2 % (0-10); NRBC Flagged by Analyzer 0 % (0-5); Neutrophil # 4.85 X10^3/uL (2.7-7.7); Neutrophil % 76.1 % (47-70); Platelet Count 195 K/mm3 (150-450); RBC Distribution Width CV 13.4 % (11.6-14.6); RBC Distribution Width SD 49.8 fl (35.1-43.9); Red Blood Count 3.53 M/mm3 (4.2-5.4); White Blood Count 6.4 K/mm3 (4.4-11.0)
[2021-04-24 17:26] LABS: POSITIVE COUNT NO; POSITIVE DIFFERENTIAL NO; POSITIVE MORPHOLOGY NO
[2021-04-24 17:38] LABS: Anion Gap 3 (5-15); BUN 16 mg/dL (7-18); BUN/Creat Ratio 18.8 RATIO (10-20); Calcium,Total 8.8 mg/dL (8.5-10.1); Chloride 106 mmol/L (98-107); Creatinine, Serum 0.85 mg/dL (0.55-1.02); EST Glomerular Filtration Rate 68 mL/min (>60); Est Glom Filt Rate - Afr Amer 82 mL/min (>60); Estimated Creatinine Clearance 42.21 ml/min; Glucose 96 mg/dL (74-106); Sodium Level 141 mmol/L (136-145)
[2021-04-24 18:00] VITALS: PULSE 87; RESP 20; O2SAT 100
[2021-04-24 18:16] LABS: Bacteria 0 SEEN /hpf (None Seen); Mucous, Urine 0 SEEN /hpf (<or=2+); Red Blood Cells-Urine 0 SEEN /hpf (0-5); Squamous Epithelial Cells - UA 0 SEEN /hpf (5-10); White Blood Cells 0 SEEN /hpf (0-5)
[2021-04-24 18:17] LABS: Color, Urine Yellow (Yellow); Glucose, Dipstick Normal (Normal); Ketone-Dipstick Negative (Negative); Leukocyte Esterase-Dipstick Negative /ul (Negative); Nitrite-Dipstick Negative (Negative); Occult Blood-Urine 10 /ul (Negative); Protein-Dipstick Negative (Negative); Urine Bilirubin Dipstick Negative (Negative); Urine Clarity Clear (Clear); Urine Urobilinogen Normal (Normal)
[2021-04-24 18:58] VITALS: PULSE 87; RESP 15; O2SAT 97
== END 2021-04-24 19:20 | disposition home or self-care (01) ==
PROVIDERS: Emergency Provider Emergency Medicine; PCP Internal Medicine
DX: R51.9 Headache, unspecified (principal); R50.9 Fever, unspecified; R35.0 Frequency of micturition; I10 Essential (primary) hypertension; I34.0 Nonrheumatic mitral (valve) insufficiency; F32.9 Major depressive disorder, single episode, unspecified; E78.00 Pure hypercholesterolemia, unspecified; J44.9 Chronic obstructive pulmonary disease, unspecified; I25.10 Atherosclerotic heart disease of native coronary artery without angina pectoris; Z79.82 Long term (current) use of aspirin; Z79.899 Other long term (current) drug therapy; Z87.891 Personal history of nicotine dependence
CPT/HCPCS: 70450; 80048; 81001; 85025; 96360; 96361; 99282; J7030; A4216

== ENCOUNTER → 2021-08-27 10:22 | Outpatient (CLI) | payer MEDICARE, OTHER, SELFPAY ==
--- NOTE | 2021-08-27 10:25 | BI_ITS ---
MAMMOGRAPHY - BILATERAL SCREENING REASON FOR EXAM: Female, 80 years old. Routine annual screening examination. PERTINENT HISTORY: Non-contributory. TECHNIQUE: Digital bilateral breast guero (3D mammographic acquisition) in the CC and MLO projections. 2-D mediolateral oblique (MLO) and craniocaudad (CC) views of both breasts were obtained. CAD: Full Field Digital Mammography with Computer Added Detection was performed. COMPARISON: Comparison is made with prior examination dated 07/19/2020 and 09/13/2018. FINDINGS: Breast Composition: The breasts are heterogeneously dense, which may obscure small masses. There are no dominant masses or suspicious calcifications. No other significant abnormalities are identified. There has been no significant change since the prior study. BI/SCRN MAMM (CAD)W/GUERO BILAT IMPRESSION: Stable bilateral screening mammogram. Yearly follow-up mammogram recommended. (A) ASSESSMENT CATEGORY: BIRADS Category 1: Negative. A letter regarding these results will be sent to the patient by the facility within 30 days. Approximately 10% of breast cancers are not detected by mammography. A normal mammogram should not delay biopsy of a clinically suspicious abnormality. [id number] Electronically Signed: Shreyas Westbrook MD at 12:23 EST , Service support ,
--- NOTE | 2021-08-27 10:29 | BD_ITS ---
STUDY: DUAL ENERGY X-RAY ABSORPTIOMETRY / DXA REASON FOR EXAM: Female, 80 years old. [id number]. Patient is postmenopausal. TECHNIQUE: Bone Mineral Density (BMD) measurements of lumbar spine and left hip were obtained. COMPARISON: Comparison is made with prior study dated 09/13/2018. FINDINGS: Lumbar Spine (L1-L4): g/cm2 (0.847) / T-score (-1.6) / Z-score (1.2) Findings are suggestive of osteopenia with a moderate fracture risk. Left Femur Total: g/cm2 (0.577) / T-score (-3.0) / Z-score (-0.8) Left Femoral Neck: g/cm2 (0.477) / T-score (-3.4) / Z-score (-0.9) The T-Scores on the most recent prior examination were: Lumbar Spine (L1-L4): There has been improvement of bone density since the previous examination. Left Femur Total: which represents a worsening of 7.8%. BD/Dexa Bone Density Study IMPRESSION: The patient is considered osteoporotic as outlined below according to World Ernesto Organization (WHO) criteria with a high fracture risk. There has been worsening of bone density since the previous examination. Reference Information: The T-score is the number of standard deviations above or below the standard which is normal for young adults at their peak bone mineral density. The World Health Organization (WHO) interprets the T-scores as follows: Above -1 Normal bone density Between -1 and -2.5 Osteopenia Equal to / or below -2.5 Osteoporosis As a practical clinical guideline, osteopenia may be graded as follows: Mild -1 through -1.5 Moderate -1.6 through -2.0 Severe -2.1 through -2.4 The Z-score is the number of standard deviations above or below age-matched controls. A Z-score of less than -1.5 would be considered abnormal. References: 1. NIH Osteoporosis and Related Bone Diseases www osteo.org 2. International Society for Clinical Densitometry www iscd.org 3. National Osteoporosis Foundation www nof.org Electronically Signed: Shreyas Westbrook MD at 9:29 EST , Service support ,
== END ==
PROVIDERS: PCP Internal Medicine; Visit Provider Internal Medicine
DX: Z12.31 Encounter for screening mammogram for malignant neoplasm of breast (principal); Z78.0 Asymptomatic menopausal state
CPT/HCPCS: 77063; 77067; 77080

== ENCOUNTER 2021-11-29 09:57 | Outpatient (CLI) | payer MEDICARE, OTHER, SELFPAY ==
--- NOTE | 2021-11-29 10:00 | RAD_ITS ---
STUDY: X-RAY CHEST REASON FOR EXAM: Female, 81 years old. Fever and cough TECHNIQUE: PA and lateral views of the chest. COMPARISON: 10/10/2020 FINDINGS: Lungs are hyperexpanded with chronic interstitial changes no superimposed process. Normal size heart. Normal mediastinum and roger. Normal visualized pulmonary arteries. There is atherosclerotic calcification of the aortic arch with tortuosity. There are diffuse degenerative changes of the visualized thoracic spine. There is degenerative osteoarthritis of the bilateral shoulders. There is no demonstrated abnormality of the visualized soft tissue structures of the upper abdomen. RAD/Chest PA and Lateral IMPRESSION: Hyperexpanded lungs with chronic interstitial changes, no superimposed acute pulmonary process Electronically Signed: Antoine Patten MD at 11:40 EDT ,
== END 2021-11-29 23:59 | disposition home or self-care (01) ==
LOC: RAD 09:59
PROVIDERS: PCP Internal Medicine; Referring Provider Internal Medicine; Visit Provider Internal Medicine
DX: J39.9 Disease of upper respiratory tract, unspecified (principal)
CPT/HCPCS: 71046

== ENCOUNTER → 2022-09-01 | Outpatient (CLI) | payer MEDICARE, OTHER, SELFPAY ==
--- NOTE | 2022-09-01 13:43 | BI_ITS ---
MAMMOGRAPHY - BILATERAL SCREENING REASON FOR EXAM: Female, 81 years old. Routine annual screening examination. PERTINENT HISTORY: Non-contributory. TECHNIQUE: Digital bilateral breast guero (3D mammographic acquisition) in the CC and MLO projections. 2-D mediolateral oblique (MLO) and craniocaudad (CC) views of both breasts were obtained. CAD: Full Field Digital Mammography with Computer Added Detection was performed. COMPARISON: Mammogram from 08/27/2021, 07/19/2020. FINDINGS: Breast Composition: There are scattered areas of fibroglandular density. There are no dominant masses or suspicious calcifications. No other significant abnormalities are identified. There has been no significant change since the prior study. BI/SCRN MAMM (CAD)W/GUERO BILAT IMPRESSION: Stable bilateral screening mammogram. Yearly follow-up mammogram recommended. (A) ASSESSMENT CATEGORY: BIRADS Category 1: Negative. A letter regarding these results will be sent to the patient by the facility within 30 days. Approximately 10% of breast cancers are not detected by mammography. A normal mammogram should not delay biopsy of a clinically suspicious abnormality. Electronically Signed: Babatunde Rowland, at 13:54 EST ,
== END | disposition home or self-care (01) ==
PROVIDERS: PCP Internal Medicine; Visit Provider Internal Medicine
DX: Z12.31 Encounter for screening mammogram for malignant neoplasm of breast (principal); Z78.0 Asymptomatic menopausal state
CPT/HCPCS: 77063; 77067

== ENCOUNTER → 2022-10-21 | Outpatient (CLI) | payer MEDICARE, OTHER, SELFPAY ==
--- NOTE | 2022-10-21 10:40 | RAD_ITS ---
STUDY: X-RAY CHEST REASON FOR EXAM: Female, 81 years old. COUGH TECHNIQUE: PA and lateral views of the chest. COMPARISON: Comparison is made with prior study dated 09/11/2022. FINDINGS: Hyperinflation. Decreased bronchovascular markings in the upper lobes worse on the right side suggestive of emphysematous changes. Stable reticular nodular pattern in the left midlung and left lung base. This is suggestive of scarring. Stable scarring at the right lung base. There is no demonstrated pleural abnormality. Normal size heart. Normal mediastinum and roger. Normal visualized pulmonary arteries. There is atherosclerotic calcification of the aortic arch with tortuosity. There are diffuse degenerative changes of the visualized thoracic spine. Normal visualized ribs, clavicles, and shoulders. There is no demonstrated abnormality of the visualized soft tissue structures of the upper abdomen. RAD/Chest PA and Lateral IMPRESSION: Stable examination. Findings suggestive of a emphysematous changes worse in the right upper lobe with bibasilar scar versus on the left side. Electronically Signed: Shreyas Westbrook MD at 16:51 EST ,
== END | disposition home or self-care (01) ==
LOC: RAD 10:37
PROVIDERS: PCP Internal Medicine; Visit Provider Internal Medicine Pulmonary Disease
DX: R05.9 Cough, unspecified (principal)
CPT/HCPCS: 71046

== ENCOUNTER → 2022-10-29 | Outpatient (CLI) | payer MEDICARE, OTHER, SELFPAY ==
[2022-10-29 11:35] LABS: Allen Test Positive; Base Excess 5 mmol/L (-2 to +2); Bicarbonate 28.4 mmol/L (22-26); Blood Gas Specimen Type ART; O2 Delivery Device Cannula; PO2 65 mmHG (75-100); SITE R Brach; SO2 94 % (95-99); Total Carbon Dioxide 30 mmol/L; pCO2 38.2 mmHg (35-45); pH 7.48 (7.35-7.45)
== END | disposition home or self-care (01) ==
LOC: PSN 11:07
PROVIDERS: PCP Internal Medicine; Referring Provider Internal Medicine Pulmonary Disease; Visit Provider Internal Medicine Pulmonary Disease
DX: R06.02 Shortness of breath (principal)
CPT/HCPCS: 36600; 82803

== ENCOUNTER 2022-11-08 15:05 | Emergency (ER) | payer MEDICARE, SELFPAY ==
[2022-11-08 15:06] VITALS: BP 132/57; PULSE 83; RESP 14; TEMP 36.6; O2SAT 91
--- NOTE | 2022-11-08 15:19 | EX.ED.GENINJ ---
HPI History of Present Illness Chief Complaint: Chest Other Detail of Chief Complaint: Fall with left chest injury. Informant: patient Narrative Narrative: Patient presents with a fall that occurred about an hour ago with injury to her left ribs. Patient states that she had gotten up and went to the kitchen when she started feeling somewhat dizzy and so she tried to quickly change directions and fell onto her left ribs against some stacked up Food cans. Patient denied striking her head or loss consciousness. She denies neck pain. She denies shortness of breath. She denies abdominal pain. She has been ambulatory. She currently denies feeling dizzy. She denies recent illness. Patient complains of pain with deep breath. Patient normally wears 4 L of home O2 due to history of COPD. [facility] Medical History (Updated 11/08/22 @ 16:[address] Radu Gill, ) Atherosclerotic heart disease of [place] coronary artery without angina pectoris COPD (chronic obstructive pulmonary disease) Depression Essential hypertension Nonrheumatic mitral valve regurgitation Pure hypercholesterolemia Home Medications atorvastatin 40 mg tablet 40 mg PO DAILY cholesterol 12/28/17 [History Last Taken 09/07/20 08:00] isosorbide mononitrate 30 mg tablet,extended release 24 hr 30 mg PO DAILY heart 12/28/17 [History Last Taken 09/07/20 08:00] multivitamin 1 tab PO DAILY supplement 12/28/17 [History Last Taken 09/07/20 08:00] paroxetine HCl 37.5 mg tablet,extended release 24 hr 37.5 mg PO DAILY mood 12/28/17 [History Last Taken 09/07/20 08:00] lactobacillus combination no.8 3 billion cell capsule (Adult Probiotic) 3,000 mmu cells PO QDAY supplement 12/30/17 [History Last Taken 09/07/20 08:00] buspirone 15 mg tablet 15 mg PO DAILY mood 30 days #60 tabs 09/22/18 [History Last Taken 09/07/20 08:00] acetaminophen 500 mg tablet 1,000 mg PO Q8 PRN Pain 1-10 Or Fever #1 TAB 09/21/20 [Rx Last Taken Unknown] budesonide 0.5 mg/2 mL suspension for nebulization 0.5 mg (2 mL) inhalation Q12H.RT 10/14/20 [Rx Last Taken Unknown] aspirin 81 mg chewable tablet 81 mg PO DAILY HEART 04/24/21 [History Last Taken Unknown] fluticasone fur. 100 mcg-umeclid 62.5 mcg-vilant 25 mcg inhalat.powder (Trelegy Ellipta) 1 inh inhalation DAILY 04/24/21 [History Last Taken Unknown] hydrocodone-acetaminophen 5-325mg 5mg-325mg 1 tab PO Q4H PRN PRN Pain 2 days #10 TABLETS 11/08/22 [Rx Last Taken Unknown] Allergy/AdvReac Type Severity Reaction Status Date / Time cefaclor [From [facility]] Allergy Hives Verified 11/08/22 15:06 Family History Father Myocardial infarction, Onset Age: 43 Brother Myocardial infarction, Onset Age: 52 Brother CAD (coronary artery disease) Surgical History History of cholecystectomy Social History Smoking Status: Former smoker alcohol intake: never substance use type: does not use ROS ROS ED Review of Systems ROS Unobtainable: other Constitutional Constitutional ED: Reports lethargy; Denies chills, fever(s), sweats or weight loss Eyes Eyes: Denies blurry vision, change in vision or diplopia ENT ENT ED: Denies rhinorrhea or sore throat Cardiovascular Cardiovascular: Reports chest pain; Denies orthopnea or racing heartbeat Respiratory/Chest Respiratory/Chest: Denies cough, dyspnea, dyspnea on exertion, orthopnea or sputum Gastrointestinal Gastrointestinal: Denies abdominal pain, diarrhea, nausea or vomiting Genitourinary Genitourinary ED: Denies dysuria, hematuria or urinary frequency Musculoskeletal Musculoskeletal: Denies arthralgias, back pain, myalgias or neck pain Integumentary Denies abscess, Abrasions or rash Neurologic Neurologic: Denies headache(s) or weakness Psychiatric Psychiatric: Denies anxiety, depression or suicidal thoughts Endocrine Endocrinology: Denies polydipsia, polyphagia or polyuria Hematologic/Lymphatic Hematologic/Lymphatic: Denies easy bleeding, easy bruising or lymphadenopathy Allergic/Immunologic Allergic/Immunologic ED: Denies mouth swelling, tongue swelling or urticaria EXAM Physical Exam Const Vital Signs: 11/08/22 15:06 11/08/22 15:24 Temperature 98 F Temperature Source Temporal Pulse Rate 83 Respiratory Rate 14 Respiratory Effort Normal Respiratory Depth Normal Respiratory Pattern Normal Blood Pressure 132/57 H Blood Pressure Mean 82 Pulse Ox 91 Oxygen Delivery Method Room Air Room Air Positive well nourished and well developed General Appearance ED: well developed and NAD HEENT Reports TM's clear and moist mucous membranes normocephalic and atraumatic; Negative for trauma or tenderness Tympanic Membrane ED: Yes TM's clear Eyes PERRL and EOMs intact bilaterally General Eye ED: Negative for pale conjunctiva or scleral icterus Neck no lymphadenopathy, supple and no JVD General: Negative for tenderness Chest Wall inspection of chest normal Chest Narrative: Tenderness palpation over the left ribs in the midaxillary line. There is no ecchymosis or bruising noted. No subcu emphysema noted. Chest: Negative for tenderness Resp normal respiratory effort and clear to auscultation bilaterally Effort and Inspection: Negative for respiratory distress or pain with movement Auscultation: Negative for rhonchi, wheezes or diminished lung sounds Cardio regular rate, regular rhythm, S1 normal heart sound, S2 normal heart sound and no murmurs Peripheral Pulses: pulses 2+ throughout GI normal to inspection, nondistended, normoactive bowel sounds, soft to palpation, non-tender, non-distended and no masses Back/Spine no CVA tenderness and no thoracic nor lumbar tenderness Extremity Extremity Narrative: Patient has superficial skin tear over left elbow. No bony tenderness on exam. Normal range of motion. Neurovascular intact. General Extremety ED: Negative for edema General Extremity: Negative for edema Neuro oriented x3, CN's II-XII intact bilaterally, no sensory deficits noted and gait normal Sensorium / Orientation: awake, alert, oriented to person, oriented to place and oriented to time Motor Exam: strength 5/5 throughout and strength abnormal Psych mental status grossly normal Skin no rashes or lesions noted and no wounds MDM MDM MDM Narrative Medical decision making narrative: Patient presents with a fall with injury to her left ribs. She is nontoxic-appearing. On 4 L she satting around 100%. Patient had x-rays of the left ribs and PA chest which showed no evidence of fracture or pneumothorax. Patient was medicated morphine and Zofran. I will write her prescription for [place] for pain. Patient advised to follow-up with her primary care physician within next 3 to 5 days. Radiography Diagnostic Testing: Clinical Impression(s) from Imaging Studies Ribs w/Chest X-Ray 11/08/22 15:30 IMPRESSION: No acute findings in the chest or left ribs. Electronically Signed: Anselmo Hercules MD at 15:59 EST Reading Location ID and State: [facility] / [place] , Service support , Three-view x-rays of left ribs and chest x-ray obtained interpreted by myself as no acute fractures and no evidence of pneumothorax. Radiology in agreement. Discharge Plan Triage Chief Complaint: Chest Other ED Provider: Radu Gill Dx/Rx/DC Orders Clinical Impression: Chest wall contusion, Fall Instructions: ED Chest Wall Contusion Prescriptions: New hydrocodone-acetaminophen [hydrocodone-acetaminophen] 5-325 mg tablet 1 tab PO Q4H PRN PRN (Reason: Pain) 2 Days Qty: 10 0RF No Action lactobacillus combination no.8 [Adult Probiotic] 3 billion cell capsule 3,000 mmu cells PO QDAY buspirone 15 mg tablet 15 mg PO DAILY 30 Days Qty: 60 multivitamin 1 EACH tablet 1 tab PO DAILY atorvastatin 40 MG tablet 40 mg PO DAILY isosorbide mononitrate 30 MG tablet 30 mg PO DAILY Label Comments: patient's medication list stated isosorb, was not specific about dinatrate/mononitrate etc. patient was unaware of what it was. paroxetine HCl 37.5 MG tablet extended release 24 hr 37.5 mg PO DAILY acetaminophen 500 MG tablet 1,000 mg PO Q8 PRN (Reason: Pain 1-10 Or Fever) Qty: 1 0RF Rx Instructions: Take 2 Tylenol every 6-8 hours as needed for pain budesonide 0.5 MG/2 ML suspension for nebulization 0.5 mg INHALATION Q12H.RT 0RF Trelegy Ellipta 100-62.5-25 mcg Blister With Device 1 inh INHALATION DAILY aspirin 81 MG tablet,chewable 81 mg PO DAILY Rx Instructions: take aspirin twice a day for 2 more weeks and then decrease to 1 aspirin daily Primary Care Provider: Nicci King Referrals: Nicci King DO [Primary Care Provider] - 3-5 Days Disposition Disposition: Home, Self Care
[2022-11-08 15:27] VITALS: BMI 10.7
--- NOTE | 2022-11-08 15:30 | RAD_ITS ---
EXAM: XR LEFT RIBS AND AP CHEST, 3 OR MORE VIEWS CLINICAL INDICATION: fall TECHNIQUE: Frontal and oblique views of the left ribs and frontal view of the chest. This report was created using [employer] report generation technology. COMPARISON: 10.21.22 FINDINGS: LUNGS AND PLEURAL SPACES: Lower lobe fibrosis is stable. No pneumothorax. No effusion. HEART: Unremarkable. Cardiac silhouette not enlarged. MEDIASTINUM: Central airways and mediastinal contour are unremarkable. BONES/JOINTS: Unremarkable. No evidence of displaced rib fractures. VASCULATURE: There are atherosclerotic vascular calcifications. RAD/Ribs Uni Min 3V w/PA Chest IMPRESSION: No acute findings in the chest or left ribs. Electronically Signed: Anselmo Hercules MD at 15:59 EST ,
[2022-11-08] MEDS: Morphine 4 MG/ML Syringe IM (15:34)
[2022-11-08] MEDS: Diphth,Pertuss(Acell),Tet Vac 0.5 ML Vial IM (16:31)
[2022-11-08 16:43] VITALS: BP 138/74; PULSE 81; RESP 18; O2SAT 98
== END 2022-11-08 16:44 | disposition home or self-care (01) ==
PROVIDERS: Emergency Provider Emergency Medicine; PCP Internal Medicine; Visit Provider Emergency Medicine
DX: S20.20XA Contusion of thorax, unspecified, initial encounter (principal); J44.9 Chronic obstructive pulmonary disease, unspecified; I25.10 Atherosclerotic heart disease of native coronary artery without angina pectoris; E78.00 Pure hypercholesterolemia, unspecified; Z87.891 Personal history of nicotine dependence; I10 Essential (primary) hypertension; W19.XXXA Unspecified fall, initial encounter; Y92.89 Other specified places as the place of occurrence of the external cause; Z99.81 Dependence on supplemental oxygen; Z79.899 Other long term (current) drug therapy; Z79.82 Long term (current) use of aspirin; Z79.51 Long term (current) use of inhaled steroids; Z23 Encounter for immunization
CPT/HCPCS: 71101; 90471; 96372; 99283; J2405

== ENCOUNTER 2022-11-12 06:42 | Observation (INO) | payer MEDICARE, SELFPAY ==
[2022-11-12] VITALS (13 sets, daily range): BP systolic 110–195; BP diastolic 62–103; PULSE 84–94; RESP 16–22; TEMP 36.4–37.2; O2SAT 90–100; BMI 21.7; BMI 21.9
--- NOTE | 2022-11-12 07:08 | CT_ITS ---
STUDY: CTA CHEST REASON FOR EXAM: Female, 81 years old. colvin, high risk PE. COPD. Recent left rib fracture. RADIATION DOSAGE (If Supplied By Facility): CTDIvol = ( 5.97 ) mGy, DLP = ( 191.87 ) mGycm TECHNIQUE: The examination was performed with the intravenous administration of IV 75mL [id number]-370. Post-processing of the angiographic images was performed, with multiplanar reformation and 3D reconstruction. Individualized dose optimization techniques were used for this CT. COMPARISON: Comparison is made with prior study dated September 27, 2020. FINDINGS: Normal enhancement of the main pulmonary artery and right and left pulmonary arteries. Normal enhancement of the bilateral peripheral pulmonary arteries. There is no demonstrated pulmonary embolism. Normal thoracic aorta and visualized great vessels. There is no demonstrated aortic dissection. There are calcifications of the coronary arteries. Normal mediastinum. Normal hilar regions. Normal visualized trachea and bronchi. Hyperinflation. Diffuse emphysematous changes with bullous formation worse in the upper lobes. Scarring in the lingular segment of the left upper lobe as well as at the right lung base. Increased markings in the left lower lobe suggestive of a possible early left basilar infiltrate. This has improved as compared to prior study. Stable bronchiectasis in the lower lobes. Normal pleura. Nondisplaced fractures of the left lower ribs posteriorly medially. There are degenerative changes of thoracic spine. There is evidence of adrenal hyperplasia. CT/CTA Chest W/WO Contrast IMPRESSION: No evidence of pulmonary embolism. Diffuse emphysematous changes with bullous formation and scarring as described. Electronically Signed: Shreyas Westbrook MD at 9:08 EST ,
--- NOTE | 2022-11-12 07:15 | EDS_ITS ---
HPI History of Present Illness Chief Complaint: Shortness of Breath Informant: patient and family Narrative Narrative: Patient is an 81-year-old female with history of severe emphysema on 4 L of oxygen at baseline, pneumonia and recent fall with subsequent left sided rib fracture. Patient was seen in our emergency room on 11/08/2022 and clinically diagnosed with a rib fracture and started on [place]. The following day patient was having pain control issues and was taken by EMS to [facility]. At that time patient had a CT was found to have pulmonary nodules as well as seventh rib fracture. Initially they thought she had pneumonia however CT did not infection with pneumonia so she was not admitted to the hospital. Daughter states they are instructed to not take [place] because it can decrease her respiratory drive into the patient has only been taking ibuprofen. Had significant pain since discharge and is now having increased dyspnea on exertion. Patient states she has to stop and sit down to catch her breath and because of pain when just walking from 1 room to another. She coughed up green sputum today which is abnormal for her. She had a hard time coughing prior to today. Denies any fever. Denies any leg swelling. Denies a history of DVT or PE. Is concerned that she might now have developed pneumonia or other side effects of her rib fractures also has continued to have severe pain with no adequate pain control. [facility] Medical History Atherosclerotic heart disease of [place] coronary artery without angina pectoris COPD (chronic obstructive pulmonary disease) Depression Essential hypertension Nonrheumatic mitral valve regurgitation Pure hypercholesterolemia Home Medications atorvastatin 40 mg tablet 40 mg PO DAILY cholesterol 12/28/17 [History Last Taken 09/07/20 08:00] isosorbide mononitrate 30 mg tablet,extended release 24 hr 30 mg PO DAILY heart 12/28/17 [History Last Taken 09/07/20 08:00] multivitamin 1 tab PO DAILY supplement 12/28/17 [History Last Taken 09/07/20 08:00] paroxetine HCl 37.5 mg tablet,extended release 24 hr 37.5 mg PO DAILY mood 12/28/17 [History Last Taken 09/07/20 08:00] lactobacillus combination no.8 3 billion cell capsule (Adult Probiotic) 3,000 mmu cells PO QDAY supplement 12/30/17 [History Last Taken 09/07/20 08:00] buspirone 15 mg tablet 15 mg PO DAILY mood 30 days #60 tabs 09/22/18 [History Last Taken 09/07/20 08:00] acetaminophen 500 mg tablet 1,000 mg PO Q8 PRN Pain 1-10 Or Fever #1 TAB 09/21/20 [Rx Last Taken Unknown] budesonide 0.5 mg/2 mL suspension for nebulization 0.5 mg (2 mL) inhalation Q12H.RT 10/14/20 [Rx Last Taken Unknown] aspirin 81 mg chewable tablet 81 mg PO DAILY HEART 04/24/21 [History Last Taken Unknown] fluticasone fur. 100 mcg-umeclid 62.5 mcg-vilant 25 mcg inhalat.powder (Trelegy Ellipta) 1 inh inhalation DAILY 04/24/21 [History Last Taken Unknown] hydrocodone-acetaminophen 5-325mg 5mg-325mg 1 tab PO Q4H PRN PRN Pain 2 days #10 TABLETS 11/08/22 [Rx Last Taken Unknown] Allergy/AdvReac Type Severity Reaction Status Date / Time cefaclor [facility] Allergy Hives Verified 11/12/22 06:48 Family History Father Myocardial infarction, Onset Age: 43 Brother Myocardial infarction, Onset Age: 52 Brother CAD (coronary artery disease) Surgical History History of cholecystectomy Social History Smoking Status: Former smoker alcohol intake: never substance use type: does not use ROS ROS ED Constitutional Constitutional ED: Denies chills or fever(s) Eyes Eyes: Denies change in vision Cardiovascular Cardiovascular: Reports chest pain Respiratory/Chest Respiratory/Chest: Reports cough, dyspnea and dyspnea on exertion Gastrointestinal Gastrointestinal: Denies abdominal pain, nausea or vomiting Musculoskeletal Musculoskeletal: Reports back pain; Denies arthralgias or myalgias Integumentary Denies rash Neurologic Neurologic: Denies headache(s) or weakness Hematologic/Lymphatic Hematologic/Lymphatic: Denies easy bleeding or easy bruising EXAM Physical Exam Const Vital Signs: 11/12/22 06:43 11/12/22 06:50 Temperature 97.5 F L Temperature Source Temporal Pulse Rate 94 Respiratory Rate 16 Respiratory Effort Short of Breath Respiratory Depth Normal Respiratory Pattern Normal Blood Pressure 176/103 H Blood Pressure Mean 127 Pulse Ox 90 Oxygen Delivery Method Nasal Cannula Nasal Cannula Oxygen Flow Rate (L/min) 4 4 Positive well nourished and well developed General Appearance ED: well developed and NAD HEENT Reports moist mucous membranes atraumatic Eyes PERRL and EOMs intact bilaterally Neck supple and no JVD Chest Wall Chest Narrative: Significant tenderness palpation to the area of the left seventh rib. No chest wall movement or crepitus appreciated. Consistent with patient's prior rib fracture. Resp Resp Narrative: Diminished breath sounds at the bases. Patient is a very difficult time taking a deep breath citing pain. No wheezing appreciated. Cardio regular rate, regular rhythm and no murmurs GI non-tender and non-distended Back/Spine no CVA tenderness Extremity normal to inspection Extremity Narrative: Normal range of motion of the upper extremities General Extremety ED: Negative for edema or tenderness General Extremity: Negative for edema Neuro oriented x3 Motor Exam: general weakness Psych mental status grossly normal Skin Skin Narrative: Healing abrasion to the left elbow with surrounding ecchymosis, no secondary signs of infection MDM MDM History & Record Review Additional record(s) reviewed:: Prior outpatient record (Family brought in summary from outside hospital visit which showed CT, labs and disposition. Patient ultimately was discharged home, and instructed to decrease use of [place] and just take ibuprofen. ) Discharge Plan Triage Chief Complaint: Shortness of Breath ED Provider: Margoth Klein Dx/Rx/DC Orders Prescriptions: No Action lactobacillus combination no.8 [Adult Probiotic] 3 billion cell capsule 3,000 mmu cells PO QDAY buspirone 15 mg tablet 15 mg PO DAILY 30 Days Qty: 60 multivitamin 1 EACH tablet 1 tab PO DAILY atorvastatin 40 MG tablet 40 mg PO DAILY isosorbide mononitrate 30 MG tablet 30 mg PO DAILY Label Comments: patient's medication list stated isosorb, was not specific about dinatrate/mononitrate etc. patient was unaware of what it was. paroxetine HCl 37.5 MG tablet extended release 24 hr 37.5 mg PO DAILY acetaminophen 500 MG tablet 1,000 mg PO Q8 PRN (Reason: Pain 1-10 Or Fever) Qty: 1 0RF Rx Instructions: Take 2 Tylenol every 6-8 hours as needed for pain budesonide 0.5 MG/2 ML suspension for nebulization 0.5 mg INHALATION Q12H.RT 0RF Trelegy Ellipta 100-62.5-25 mcg Blister With Device 1 inh INHALATION DAILY aspirin 81 MG tablet,chewable 81 mg PO DAILY Rx Instructions: take aspirin twice a day for 2 more weeks and then decrease to 1 aspirin daily hydrocodone-acetaminophen [hydrocodone-acetaminophen] 5-325 mg tablet 1 tab PO Q4H PRN PRN (Reason: Pain) 2 Days Qty: 10 0RF Primary Care Provider: Nicci King Referrals: Nicci King, [Primary Care Provider] -
--- NOTE | 2022-11-12 07:15 | ED.VIS.DYS ---
HPI History of Present Illness Chief Complaint: Shortness of Breath Informant: patient and family Narrative Narrative: Patient is an 81-year-old female with history of severe emphysema on 4 L of oxygen at baseline, pneumonia and recent fall with subsequent left sided rib fracture. Patient was seen in our emergency room on 11/08/2022 and clinically diagnosed with a rib fracture and started on [place]. The following day patient was having pain control issues and was taken by EMS to [facility]. At that time patient had a CT was found to have pulmonary nodules as well as seventh rib fracture. Initially they thought she had pneumonia however CT did not infection with pneumonia so she was not admitted to the hospital. Daughter states they are instructed to not take [place] because it can decrease her respiratory drive into the patient has only been taking ibuprofen. Had significant pain since discharge and is now having increased dyspnea on exertion. Patient states she has to stop and sit down to catch her breath and because of pain when just walking from 1 room to another. She coughed up green sputum today which is abnormal for her. She had a hard time coughing prior to today. Denies any fever. Denies any leg swelling. Denies a history of DVT or PE. Is concerned that she might now have developed pneumonia or other side effects of her rib fractures also has continued to have severe pain with no adequate pain control. [facility] Medical History (Updated 11/12/22 @ 17:[address] Margoth Klein, ) Atherosclerotic heart disease of [place] coronary artery without angina pectoris COPD (chronic obstructive pulmonary disease) Depression Essential hypertension Nonrheumatic mitral valve regurgitation Pure hypercholesterolemia Home Medications atorvastatin 40 mg tablet 40 mg PO QHS CHOLESTEROL 12/28/17 [History Last Taken 11/11/22] isosorbide mononitrate 30 mg tablet,extended release 24 hr 30 mg PO DAILY HEART/CHEST PAIN 12/28/17 [History Last Taken 11/11/22] multivitamin 1 tab PO DAILY SUPPLEMENT 12/28/17 [History Last Taken 11/11/22] paroxetine HCl 37.5 mg tablet,extended release 24 hr 37.5 mg PO DAILY MOOD 12/28/17 [History Last Taken 11/11/22] buspirone 15 mg tablet 15 mg PO DAILY ANXIETY 30 days #60 tabs 09/22/18 [History Last Taken 11/11/22] acidophilus 100 million cell-pectin, citrus 10 mg capsule 1 cap PO DAILY GUT HEALTH 11/12/22 [History Last Taken 11/11/22] albuterol sulfate 90 mcg/actuation aerosol inhaler 1 inh inhalation Q4H PRN SHORTNESS OF BREATH 11/12/22 [History Last Taken Unknown] ascorbic acid (vitamin C) 100 mg tablet (Vitamin C) 100 mg PO DAILY SUPPLEMENT 11/12/22 [History Last Taken 11/11/22] aspirin 81 mg tablet,delayed release 81 mg PO DAILY HEART HEALTH 11/12/22 [History Last Taken 11/11/22] bupropion HCl 75 mg tablet 75 mg PO BID DEPRESSION 11/12/22 [History Last Taken 11/11/22] calcium carbonate 500 mg-vitamin D3 3.125 mcg (125 unit) tablet 1 tab PO DAILY SUPPLEMENT 11/12/22 [History Last Taken 11/11/22] cholecalciferol (vitamin D3) 125 mcg (5,000 unit) tablet 125 mcg PO DAILY SUPPLEMENT 11/12/22 [History Last Taken 11/11/22] cranberry fruit concentrate 250 mg chewable tablet (Azo Cranberry) 250 mg PO DAILY UTI PREVENTION 11/12/22 [History Last Taken 11/11/22] fluticasone fur. 100 mcg-umeclid 62.5 mcg-vilant 25 mcg inhalat.powder (Trelegy Ellipta) 1 inh inhalation DAILY COPD 11/12/22 [History Last Taken 11/11/22] omega-3 fatty acids 1,000 mg capsule 1,000 mg PO DAILY SUPPLEMENT 11/12/22 [History Last Taken 11/11/22] ramipril 2.5 mg capsule 2.5 mg PO DAILY HEART 11/12/22 [History Last Taken 11/11/22] roflumilast 500 mcg tablet 500 mcg PO DAILY COPD 11/12/22 [History Last Taken 11/11/22] vitamin B complex 1 cap PO DAILY SUPPLEMENT 11/12/22 [History Last Taken 11/11/22] Allergy/AdvReac Type Severity Reaction Status Date / Time cefaclor [From [facility]] Allergy Hives Verified 11/12/22 06:48 Family History Father Myocardial infarction, Onset Age: 43 Brother Myocardial infarction, Onset Age: 52 Brother CAD (coronary artery disease) Surgical History History of cholecystectomy Social History Smoking Status: Former smoker alcohol intake: never substance use type: does not use ROS ROS ED Constitutional Constitutional ED: Denies chills or fever(s) Eyes Eyes: Denies change in vision Cardiovascular Cardiovascular: Reports chest pain Respiratory/Chest Respiratory/Chest: Reports cough, dyspnea and dyspnea on exertion Gastrointestinal Gastrointestinal: Denies abdominal pain, nausea or vomiting Musculoskeletal Musculoskeletal: Reports back pain; Denies arthralgias or myalgias Integumentary Denies rash Neurologic Neurologic: Denies headache(s) or weakness Hematologic/Lymphatic Hematologic/Lymphatic: Denies easy bleeding or easy bruising EXAM Physical Exam Const Vital Signs: 11/12/22 06:43 11/12/22 06:50 11/12/22 08:42 Temperature 97.5 F L Temperature Source Temporal Pulse Rate 94 91 Respiratory Rate 16 22 H Respiratory Effort Short of Breath Respiratory Depth Normal Respiratory Pattern Normal Blood Pressure 176/103 H 159/87 H Blood Pressure Mean 127 111 Pulse Ox 90 97 Oxygen Delivery Method Nasal Cannula Nasal Cannula Nasal Cannula Oxygen Flow Rate (L/min) 4 4 4 11/12/22 10:11 Temperature Temperature Source Pulse Rate 85 Respiratory Rate 16 Respiratory Effort Respiratory Depth Respiratory Pattern Blood Pressure 179/90 H Blood Pressure Mean 119 Pulse Ox 99 Oxygen Delivery Method Nasal Cannula Oxygen Flow Rate (L/min) 4 Positive well nourished and well developed General Appearance ED: well developed and NAD HEENT Reports moist mucous membranes atraumatic Eyes PERRL and EOMs intact bilaterally Neck supple and no JVD Chest Wall Chest Narrative: Significant tenderness palpation to the area of the left seventh rib. No chest wall movement or crepitus appreciated. Consistent with patient's prior rib fracture. Resp Resp Narrative: Diminished breath sounds at the bases. Patient is a very difficult time taking a deep breath citing pain. No wheezing appreciated. Cardio regular rate, regular rhythm and no murmurs GI non-tender and non-distended Back/Spine no CVA tenderness Extremity normal to inspection Extremity Narrative: Normal range of motion of the upper extremities General Extremety ED: Negative for edema or tenderness General Extremity: Negative for edema Neuro oriented x3 Motor Exam: general weakness Psych mental status grossly normal Skin Skin Narrative: Healing abrasion to the left elbow with surrounding ecchymosis, no secondary signs of infection MDM MDM MDM Narrative Medical decision making narrative: patient presented with worsening left sided chest pain and [place]. Patient was quite uncomfortable upon arrival but no acute distress. Outpatient records from [facility] reviewed which shows stable labs, mild leukocytosis and confirmed left 7th rib fracture. Patient is given a dose of Dilaudid with significant improvement of her pain. Patient to 4 L of oxygen. Because patient had recent embolization with increased shortness of breath, PE is now in the differential. CTA is obtained which does not show any associated pneumothorax or pneumonia but does show multiple rib fractures as well as no PE. Patient is ambulated and is quite weak and desaturates to 88% on her baseline of 4 L. Patient does not have any significant laboratory abnormalities. She is mildly hypokalemic. Case is discussed with hospitalist who will except the patient for observation given her debility associated with rib fractures, pain and hypoxia with ambulation. History & Record Review Additional record(s) reviewed:: Prior outpatient record (Family brought in summary from outside hospital visit which showed CT, labs and disposition. Patient ultimately was discharged home, and instructed to decrease use of [place] and just take ibuprofen. ) Lab Data Attestation: I reviewed the patient's lab results. Labs: Laboratory Results - last 24 hr 11/12/22 11/12/22 11/12/22 07:20 07:20 07:20 WBC 12.4 H RBC 3.70 L Hgb 12.2 Hct 37.1 MCV 100.3 H MCH 33.0 H MCHC 32.9 RDW Std Deviation 51.0 H RDW Coeff of Linette 14.0 Plt Count 233 MPV 11.8 Immature Gran % (Auto) 0.400 Neut % (Auto) 82.4 H Lymph % (Auto) 7.2 L Lee % (Auto) 8.1 Eos % (Auto) 1.5 Baso % (Auto) 0.4 Absolute Neuts (auto) 10.2 H Absolute Lymphs (auto) 0.89 Nucleated RBC % 0 Sodium 144 Potassium 3.3 L Chloride 108 H Carbon Dioxide 30.0 Anion Gap 6 BUN 22 H Creatinine 1.05 H Estim Creat Clear Calc 30.63 Est GFR (MDRD) Af Amer 64 Est GFR (MDRD) Non-Af 53 L BUN/Creatinine Ratio 21.0 H Glucose 124 H Calcium 9.5 Phosphorus 2.8 Magnesium 2.0 Radiography Diagnostic Testing: Clinical Impression(s) from Imaging Studies Chest CTA 11/12/22 07:08 IMPRESSION: No evidence of pulmonary embolism. Diffuse emphysematous changes with bullous formation and scarring as described. Electronically Signed: Shreyas Westbrook MD at 9:08 EST , Rhythm Strip Rhythm Strip: Sinus Rhythm Rate: 91 Ectopy: None EKG Initial EKG: Attestation: I personally reviewed and interpreted this EKG as follows: Interpretation: Sinus Rhythm Comments: Normal sinus rhythm at a rate of 91 beats per minutes with occasional PVCs Normal axis Normal ST segments No prior EKG available for comparison Differential Diagnosis Chest pain/SOB: pulmonary embolism, pneumothorax and pneumonia Management Discussion w/another healthcare provider: Hospitalist Discharge Plan Dx/Rx/DC Orders Clinical Impression: Multiple fractures of ribs of left side, Physical debility, Chronic respiratory failure with hypoxia Disposition Disposition: Acute Care Hospital [facility] Discharge Date/Time: 11/12/22 12:20
[2022-11-12] MEDS: 0.9% Normal Saline 1,000 ML 75 ML IV (07:24)
[2022-11-12] MEDS: Lidocaine 5% Patch 1 PATCH TOPICAL (07:34)
[2022-11-12] MEDS: HYDROmorphone 0.5 MG/0.5 ML SYRINGE IV (07:35)
[2022-11-12 07:41] LABS: Absolute Lymphocyte Count 0.89 X10^3/uL (0.83-4.51); Absolute Neutrophil Count 10.2 X10^3/uL (2.0-7.7); Basophil# 0.05 X10^3/uL; Basophil% 0.4 % (0-1); Eosinophil# 0.18 X10^3/uL; Eosinophils% 1.5 % (0-5); Hematocrit 37.1 % (37-47); Hemoglobin 12.2 g/dL (12.0-15.0); Lymphocyte # 0.89 X10^3/ul (0.83-4.51); Lymphocyte % 7.2 % (19-41); Mean Corp Hgb Conc 32.9 g/dL (32-36); Mean Corpuscular Volume 100.3 fL (81-99); Mean Platelet Vol. 11.8 fl (6.2-12.0); Monocyte% 8.1 % (0-10); NRBC Flagged by Analyzer 0 % (0-5); Neutrophil # 10.21 X10^3/uL (2.7-7.7); Neutrophil % 82.4 % (47-70); Platelet Count 233 K/mm3 (150-450); White Blood Count 12.4 K/mm3 (4.4-11.0)
[2022-11-12 07:55] LABS: Anion Gap 6 (5-15); BUN 22 mg/dL (7-18); Calcium,Total 9.5 mg/dL (8.5-10.1); Chloride 108 mmol/L (98-107); Creatinine, Serum 1.05 mg/dL (0.55-1.02); EST Glomerular Filtration Rate 53 mL/min (>60); Est Glom Filt Rate - Afr Amer 64 mL/min (>60); Estimated Creatinine Clearance 30.63 ml/min; Glucose 124 mg/dL (74-106); Potassium 3.3 mmol/L (3.5-5.1); Sodium Level 144 mmol/L (136-145)
--- NOTE | 2022-11-12 11:35 | HP.PCM.HOS_ITS ---
HPI - General General Date of Admission: 11/12/22 Date of Service: 11/12/22 Chief Complaint: Recent fall and left-sided rib fracture on 11/08/2022 with excruciating pain, cough and shortness of breath. HPI Narrative ZAHIDA FRYE, is a 81 F was brought to ED on 11/08 for fall and left-sided rib fracture. Patient was sent home on [place] after imaging. Patient has worsening pain and the following day patient went to [facility] . Initially there was doubt of pneumonia but ruled out after CT scan. There she was told not to take [place] at this might cause respiratory failure/apnea therefore patient has been taking ibuprofen. Her pain has increased and now having more increased dyspnea on exertion even with ADLs. Pain gets more worse with coughing, with slight movement or deep breathing. Patient also has increased cough with greenish sputum and mild hypoxia. Pulse ox was in 80s on her usual 4 L of oxygen. Patient is further admitted with pain control for rib fracture and mild COPD exacerbation. Twelve-lead EKG done in ED showed normal sinus rhythm with occasional PVCs, 91 bpm. QTc 418 ms. Vitals, CT scan and labs reviewed and discussed in assessment and plan [facility] Medical History (Updated 11/12/22 @ 11:[address] Geoff Almaraz MD) Atherosclerotic heart disease of [place] coronary artery without angina pectoris COPD (chronic obstructive pulmonary disease) Depression Essential hypertension Nonrheumatic mitral valve regurgitation Pure hypercholesterolemia Home Medications atorvastatin 40 mg tablet 40 mg PO QHS CHOLESTEROL 12/28/17 [History Last Taken 11/11/22] isosorbide mononitrate 30 mg tablet,extended release 24 hr 30 mg PO DAILY HEART/CHEST PAIN 12/28/17 [History Last Taken 11/11/22] multivitamin 1 tab PO DAILY SUPPLEMENT 12/28/17 [History Last Taken 11/11/22] paroxetine HCl 37.5 mg tablet,extended release 24 hr 37.5 mg PO DAILY MOOD 12/28/17 [History Last Taken 11/11/22] buspirone 15 mg tablet 15 mg PO DAILY ANXIETY 30 days #60 tabs 09/22/18 [History Last Taken 11/11/22] acidophilus 100 million cell-pectin, citrus 10 mg capsule 1 cap PO DAILY GUT HEALTH 11/12/22 [History Last Taken 11/11/22] albuterol sulfate 90 mcg/actuation aerosol inhaler 1 inh inhalation Q4H PRN SHORTNESS OF BREATH 11/12/22 [History Last Taken Unknown] ascorbic acid (vitamin C) 100 mg tablet (Vitamin C) 100 mg PO DAILY SUPPLEMENT 11/12/22 [History Last Taken 11/11/22] aspirin 81 mg tablet,delayed release 81 mg PO DAILY HEART HEALTH 11/12/22 [History Last Taken 11/11/22] bupropion HCl 75 mg tablet 75 mg PO BID DEPRESSION 11/12/22 [History Last Taken 11/11/22] calcium carbonate 500 mg-vitamin D3 3.125 mcg (125 unit) tablet 1 tab PO DAILY SUPPLEMENT 11/12/22 [History Last Taken 11/11/22] cholecalciferol (vitamin D3) 125 mcg (5,000 unit) tablet 125 mcg PO DAILY SUPPLEMENT 11/12/22 [History Last Taken 11/11/22] cranberry fruit concentrate 250 mg chewable tablet (Azo Cranberry) 250 mg PO DAILY UTI PREVENTION 11/12/22 [History Last Taken 11/11/22] fluticasone fur. 100 mcg-umeclid 62.5 mcg-vilant 25 mcg inhalat.powder (Trelegy Ellipta) 1 inh inhalation DAILY COPD 11/12/22 [History Last Taken 11/11/22] omega-3 fatty acids 1,000 mg capsule 1,000 mg PO DAILY SUPPLEMENT 11/12/22 [History Last Taken 11/11/22] ramipril 2.5 mg capsule 2.5 mg PO DAILY HEART 11/12/22 [History Last Taken 11/11/22] roflumilast 500 mcg tablet 500 mcg PO DAILY COPD 11/12/22 [History Last Taken 11/11/22] vitamin B complex 1 cap PO DAILY SUPPLEMENT 11/12/22 [History Last Taken 11/11/22] Allergy/AdvReac Type Severity Reaction Status Date / Time cefaclor [From [facility]] Allergy Hives Verified 11/12/22 06:48 Family History Father Myocardial infarction, Onset Age: 43 Brother Myocardial infarction, Onset Age: 52 Brother CAD (coronary artery disease) Surgical History History of cholecystectomy Social History Smoking Status: Former smoker alcohol intake: never substance use type: does not use ROS ROS Narrative Constitutional: Reports fatigue and weakness, severe pain and mild hypoxia. Denies fever. HEENT: Reports systems reviewed and no addt'l complaints, except as documented Respiratory/Chest: Left-sided rib pain. Shortness of breath/dyspnea on exertion. CVS: No precordial chest pain/angina. Denies irregular heartbeat, dizziness or syncope. Gastrointestinal: Chronic constipation. Denies coffee ground emesis, hematemesis or vomiting Genitourinary: Denies burning urination or new urinary tract symptoms Musculoskeletal: Fall. Reports joint pain and limited range of motion. Neurologic: Denies seizure-like activity. No stroke. skin: No ulcer. No rash Endocrinology: Reports systems reviewed and no addt'l complaints, except as documented Hematologic/Lymphatic: Reports systems reviewed and no addt'l complaints, except as documented Rest 14 ROS are negative except as mentioned in HPI Vital Signs Vital Signs Vital Signs: 11/12/22 06:43 11/12/22 06:50 11/12/22 08:42 Temperature 97.5 F L Temperature Source Temporal Pulse Rate 94 91 Respiratory Rate 16 22 H Respiratory Effort Short of Breath Respiratory Depth Normal Respiratory Pattern Normal Blood Pressure 176/103 H 159/87 H Blood Pressure Mean 127 111 Pulse Ox 90 97 Oxygen Delivery Method Nasal Cannula Nasal Cannula Nasal Cannula Oxygen Flow Rate (L/min) 4 4 4 11/12/22 10:11 Temperature Temperature Source Pulse Rate 85 Respiratory Rate 16 Respiratory Effort Respiratory Depth Respiratory Pattern Blood Pressure 179/90 H Blood Pressure Mean 119 Pulse Ox 99 Oxygen Delivery Method Nasal Cannula Oxygen Flow Rate (L/min) 4 Weight Weight: 114 lb 13.773 oz Body Mass Index (BMI) 21.7 Physical Exam Narrative Physical exam General: Alert, Oriented x3, Cooperative HEENT: Atraumatic, PERRLA, EOMI, Normocephalic Oral: Oral mucosa dry. No Gingival or Mucosal Lesions/ Ulcerations Neck: Supple, No JVD, Negative Carotid Bruits Lungs: Air entry diminished in bilateral lung bases. Bilateral expiratory rhonchi, expiratory phase prolonged. Cardiovascular: Regular rate, Regular Rhythm, Normal S1, Normal S2, no murmurs/gallops/rubs. Abdomen: Bowel Sounds Present, Soft, Non Tender, Non-Distended : No renal angle tenderness. No suprapubic tenderness. Extremities: No edema, Capillary Refill Less than 3 Seconds Skin: No rashes, No breakdown Musculoskeletal: No Tenderness to Palpation of Joints or Extremities. Muscle strength 4+/5 at knee and hip joints. ROM restricted. Neurological: Cranial nerves II-XII grossly intact, DTR 2+/4 and Symmetrical, Neuro grossly intact Psych/Mental Status: Flat affect. Mild depression. Results Lab / Micro Data Result Diagrams: 11/12/22 07:20 11/12/22 07:20 Labs: Laboratory Results - last 24 hr 11/12/22 07:20: WBC 12.4 H, RBC 3.70 L, Hgb 12.2, Hct 37.1, MCV 100.3 H, MCH 33.0 H, MCHC 32.9, RDW Std Deviation 51.0 H, RDW Coeff of Linette 14.0, Plt Count 233, MPV 11.8, Immature Gran % (Auto) 0.400, Neut % (Auto) 82.4 H, Lymph % (Auto ) 7.2 L, [place] % (Auto) 8.1, Eos % (Auto) 1.5, Baso % (Auto) 0.4, Absolute Neuts (auto) 10.2 H, Absolute Lymphs (auto) 0.89, Nucleated RBC % 0 11/12/22 07:20: Sodium 144, Potassium 3.3 L, Chloride 108 H, Carbon Dioxide 30.0, Anion Gap 6, BUN 22 H, Creatinine 1.05 H, Estim Creat Clear Calc 30.63, Est GFR (MDRD) Af Amer 64, Est GFR (MDRD) Non-Af 53 L, BUN/Creatinine Ratio 21.0 H, Glucose 124 H, Calcium 9.5 Radiology Impression Chest CTA 11/12/22 07:08 IMPRESSION: No evidence of pulmonary embolism. Diffuse emphysematous changes with bullous formation and scarring as described. Electronically Signed: Shreyas Westbrook MD at 9:08 EST , Assessment & Plan Assessment/Plan (1) Fall: (2) COPD exacerbation: PLAN: Plan This is a 81-year-old female who is being admitted for excruciating left-sided rib pain even at rest, increased cough and shortness of breath consistent with COPD exacerbation 1. Mild COPD exacerbation probably due to left lower rib fracture, increased pain with decreased chest wall movement/respiratory drive with history of chronic emphysema and bronchiectasis: [facility]. Started on bronchodilator, IV Solu-Medrol 40 mg x 2 doses then transition to prednisone 40 mg daily, incentive spirometry, Pep and Mucinex DM. Azithromycin 500 mg for 3 days for COPD exacerbation. Patient has increased cough, shortness of breath and sputum production greenish-yellow in color. CT chest individually reviewed and shows fracture of left lower ribs posteromedially. Diffuse emphysematous changes with bullous formation worse on upper lobes. Increased atelectasis and scarring of lingular segment and right and left lung base. Stable bronchiectasis of lower lobes. 2. Left lower posterior medial rib fracture with severe pain and mild hypoxia: Patient pulse ox was in 80s on 4 L of baseline oxygen but here it was in 90s on 4 L of oxygen. Patient has chronic hypoxic respiratory failure. Pain control with NSAID, ibuprofen for anti-inflammatory effect, oxycodone, incentive spirometry. She does not meet criteria for acute hypoxic respiratory failure 3. Fall with distal creatinine and degenerative arthritis of lower extremity joints: PT and OT ordered. 4. History of COVID-19 pneumonia in October 2020, hypertension, dyslipidemia, right hip arthroplasty for right hip fracture in September 08, 2020, anxiety and depression: Patient was last admitted in October 2020 for acute COVID-19 pneumonia with acute on chronic hypoxic respiratory failure. Home medication reconciliation done. Living will/advanced directive/end of life care: Patient does have living will or advanced directive. Her power of contract attorney for health is her daughter near the bedside. After discussion of benefits/risks procedures involved with full code, DNR CC arrest and DNR CC, the patient opted for full code. Patient does want artificial life support including intubation, tube feed, ventilator and/chest compression, central venous catheter, vasopressor and DC shock if needed Total time spent in [id number] encounter in discussion of advanced directive 17 minutes. Charges/Coding Visit Charges Inpatient E&M: 60990 Init Hosp L3 Procedures Hospitalists Procedures: 58804 Advncd Care Plan 30 Min
[2022-11-12 11:52] LABS: Phosphorus 2.8 mg/dL (2.5-4.9)
[2022-11-12] MEDS: Lactated Ringers 1,000 ML 75 ML IV (12:50)
[2022-11-12] MEDS: Ibuprofen 400 MG Tablet PO ×2 (14:28→21:42)
[2022-11-12] MEDS: Azithromycin 250 MG Tablet 500 MG PO (14:28)
[2022-11-12] MEDS: guaiFENesin/D-Methorphan TAB.SR.12H 1 TABLET PO (14:28)
[2022-11-12] MEDS: Isosorbide Mononitrate 30 MG Tablet PO (14:28)
[2022-11-12] MEDS: busPIRone 15 MG TABLET PO (14:28)
[2022-11-12] MEDS: Senna/Docusate Sodium 1 Tablet 2 TABLET PO ×2 (14:28→21:42)
[2022-11-12] MEDS: oxyCODONE 5 MG Tablet PO (14:32)
--- NOTE | 2022-11-12 16:34 | CASEMGMT ---
DIANE SAUL NOTE: Per ED note, pt's home O2 is 4 l/m @ baseline. Call to Jovany, who states current home O2 orders are 2 l/m @ rest and 2l/m w/exertion and 4 l/m @ HS. DIANE SAUL to room. Pt verifies it used to be 2l/m @ rest and w/exertion, but Dr Joy told her she could go up to 4 l/m w/exertion and that she started using it so often on the 4 l/m that she has been just keeping it @ 4. Discussed discharge planning. Pt states she lives alone, but her daughter lives just up the driveway. She states she did not originally think she would need to go anywhere @ discharge, but states It was either my daughter or the doctor that thinks I should go somewhere for awhile before I go home and I've been thinking about it and I think it would be best. Pt states her 1st choice is [facility] and then it [facility] be [facility] [facility] [place], d/t they are closer to her and her dtr's home. She declines wanting list of other SNF choices at this time. NELSY Dexter, made aware and states will notify [facility] in TCU. DIANE SAUL spoke w/[facility] who states there are no beds available in TCU and there will be no beds available until after the . PT/OT normaals pending. SW to f/u on Wednesday. Kyleigh BSN DIANE SAUL
[2022-11-12] MEDS: Ipratropium/Albuterol Sulfate 3 ML AMPUL.NEB INHALATION (18:44)
[2022-11-12] MEDS: Atorvastatin Calcium 40 MG Tablet PO (21:43)
[2022-11-12] MEDS: buPROPion 75 MG Tablet PO (21:43)
[2022-11-12] MEDS: 0.9% Saline Lock 10 ML Syringe IV (21:43)
[2022-11-13 05:59] VITALS: BP 134/81; PULSE 89; RESP 18; TEMP 37.1; O2SAT 94
[2022-11-13 06:00] VITALS: BMI 22.0
[2022-11-13] MEDS: Ibuprofen 400 MG Tablet PO ×3 (06:02→20:26)
[2022-11-13 06:18] LABS: Absolute Lymphocyte Count 0.61 X10^3/uL (0.83-4.51); Basophil# 0.01 X10^3/uL; Basophil% 0.1 % (0-1); Hematocrit 34.1 % (37-47); Hemoglobin 11.3 g/dL (12.0-15.0); Lymphocyte # 0.61 X10^3/ul (0.83-4.51); Lymphocyte % 5.5 % (19-41); Mean Corp Hgb Conc 33.1 g/dL (32-36); Mean Corpuscular Hgb 32.8 pg (27.0-32.0); Mean Corpuscular Volume 98.8 fL (81-99); Monocyte# 0.37 X10^3/uL; Monocyte% 3.4 % (0-10); NRBC Flagged by Analyzer 0 % (0-5); Neutrophil % 90.5 % (47-70); Platelet Count 230 K/mm3 (150-450); RBC Distribution Width CV 13.3 % (11.6-14.6); RBC Distribution Width SD 48.3 fl (35.1-43.9); Red Blood Count 3.45 M/mm3 (4.2-5.4)
[2022-11-13 06:45] VITALS: PULSE 74; RESP 17; O2SAT 93
[2022-11-13 06:53] LABS: Anion Gap 9 (5-15); BUN 20 mg/dL (7-18); BUN/Creat Ratio 25.2 RATIO (10-20); Calcium,Total 8.8 mg/dL (8.5-10.1); Chloride 106 mmol/L (98-107); Creatinine, Serum 0.79 mg/dL (0.55-1.02); EST Glomerular Filtration Rate 73 mL/min (>60); Est Glom Filt Rate - Afr Amer 89 mL/min (>60); Estimated Creatinine Clearance 32.17 ml/min; Glucose 144 mg/dL (74-106); Potassium 3.6 mmol/L (3.5-5.1); Sodium Level 142 mmol/L (136-145)
[2022-11-13] MEDS: Ipratropium/Albuterol Sulfate 3 ML AMPUL.NEB INHALATION ×2 (06:55→19:27)
--- NOTE | 2022-11-13 07:44 | CPS ---
patient found on 2 lpm at time of visit.
[2022-11-13 09:00] VITALS: BP 113/58; PULSE 100; RESP 20; TEMP 37.2; O2SAT 92
[2022-11-13] MEDS: busPIRone 15 MG TABLET PO (09:08)
[2022-11-13] MEDS: predniSONE 20 MG Tablet 40 MG PO (09:09)
[2022-11-13] MEDS: Enoxaparin 30 MG/0.3 ML Syringe SC (09:09)
[2022-11-13] MEDS: guaiFENesin/D-Methorphan TAB.SR.12H 1 TABLET PO ×2 (09:09→20:26)
[2022-11-13] MEDS: Isosorbide Mononitrate 30 MG Tablet PO (09:09)
[2022-11-13] MEDS: Aspirin E.C. 81 MG Tablet PO (09:09)
[2022-11-13] MEDS: Azithromycin 250 MG Tablet 500 MG PO (09:10)
[2022-11-13] MEDS: buPROPion 75 MG Tablet PO ×2 (09:10→20:25)
[2022-11-13] MEDS: PARoxetine CR 12.5 MG Tablet 37.5 MG PO (09:10)
[2022-11-13] MEDS: Senna/Docusate Sodium 1 Tablet 2 TABLET PO ×2 (09:10→20:25)
--- NOTE | 2022-11-13 09:57 | CASEMGMT ---
Addendum entered by Yara Perales 11/13/22 13:32: SW received call from Concepción at [facility]. Concepción stated pt has been accepted and precert has been started. Addendum entered by Yara Perales 11/13/22 11:35: Pt daughter now present in the room and requesting to speak to SW. Daughter, Piper, had questions regarding TCU and wanted SW to explain to pt once again why pt not able to go to TCU. SW explained TCU has no open beds and will not for some time. Daughter asked SW to explain to pt why SNF is needed. SW discussed need for rehab as pt is weak and needs to build back strength in order to safely return home. Pt asked why cannot stay on hospital floor and receive therapy here. SW explained pt would not be receiving acute care and MDs would not be doing any medical interventions that would support the need for pt to stay in [facility]. Pt voiced understanding. SW explained to pt that the SNF will need to accept and then it could take 1-3 days to hear back from [employer] about approval for SNF. Daughter and pt both voiced understanding and will await news of acceptance at SNF. Original Note: Social Work ? SW in to meet with pt following update from MD that pt will need/requesting placement at nursing facility. SW introduced self and role at the hospital. Pt agreeable to discussing discharge planning. A list of SNF providers including quality and resource use data consistent with the patient?s preferred geographic region, medical needs, and insurance network were provided from the [employer] Guide. Pt reviewed list stated [facility] is preference. NELSY informed that TCU admissions emailed today that no beds are available until 11/20 at the earliest. Pt agreeable to looking at alternative options and gave next choice as [facility] as it is close to pt home. SW faxed referral to [facility]?via [employer]. PLAN: [facility], pending acceptance and precert. LEIDY Cunningham?
[2022-11-13] MEDS: Bisacodyl 5 MG Tablet PO (10:21)
--- NOTE | 2022-11-13 11:58 | CASEMGMT ---
DIANE SAUL in to discuss [employer] form with patient. RN DORYS explained [employer] form, patient voiced understanding. Pt signed form and filed in chart. Pt provided with a copy of signed [employer] form. Pt dtr present in room and asks about a notary for financial documents. Discussed with SW and she is aware that there is not one available in the hospital for this. Patient had no further questions or concerns at this time.
--- NOTE | 2022-11-13 12:56 | CPS ---
patient refused due to nausea.
--- NOTE | 2022-11-13 12:57 | CPS ---
patient refused pep and incentive due to nausea.
--- NOTE | 2022-11-13 12:57 | CPS ---
patient refused due to nausea.
[2022-11-13] MEDS: oxyCODONE 5 MG Tablet PO ×2 (13:34→20:25)
[2022-11-13 15:04] VITALS: BP 168/74; PULSE 100; RESP 20; TEMP 37; O2SAT 94
--- NOTE | 2022-11-13 15:17 | PN.HOSP_ITS ---
Reason for Visit Reason for Visit: Diagnoses Chronic obstructive pulmonary disease with (acute) exacerbation (11/12/22) Unspecified fall, initial encounter (11/12/22) Subjective Subjective Follow-up for severe pain due to left-sided rib fracture. Objective Data Objective Data Vital Signs: Vital Signs Temp Pulse Resp BP Pulse Ox O2 Del Method O2 Flow Rate 98.6 F 100 20 H 168/74 H 94 Nasal Cannula 3 11/13/22 15:04 11/13/22 15:04 11/13/22 15:04 11/13/22 15:04 11/13/22 15:04 11/13/22 15:05 11/13/22 15:04 Oxygen Flow Rate (L/min) 3 Oxygen Delivery Method Nasal Cannula Weight: 116 lb 9.992 oz Body Mass Index (BMI) 22.0 Intake & Output: Intake and Output for Last 24 Hours 11/11/22 11/12/22 11/13/22 23:59 23:59 23:59 Intake Total 710 / 710 1000 / 1000 Output Total 150 / 150 Balance 560 / 560 1000 / 1000 Lab / Micro Data Result Diagrams: 11/13/22 05:40 11/13/22 05:40 Labs: Laboratory Results - last 24 hr 11/13/22 05:40: WBC 11.0, RBC 3.45 L, Hgb 11.3 L, Hct 34.1 L, MCV 98.8, MCH 32.8 H, MCHC 33.1, RDW Std Deviation 48.3 H, RDW Coeff of Linette 13.3, Plt Count 230, MPV 12.0, Immature Gran % (Auto) 0.500, Neut % (Auto) 90.5 H, Lymph % (Auto) 5.5 L, [place] % (Auto) 3.4, Eos % (Auto) 0.0, Baso % (Auto) 0.1, Absolute Neuts (auto) 10.0 H, Absolute Lymphs (auto) 0.61 L, Nucleated RBC % 0 11/13/22 05:40: Sodium 142, Potassium 3.6, Chloride 106, Carbon Dioxide 27.0, Anion Gap 9, BUN 20 H, Creatinine 0.79, Estim Creat Clear Calc 32.17, Est GFR (MDRD) Af Amer 89, Est GFR (MDRD) Non-Af 73, BUN/Creatinine Ratio 25.2 H, Glucose 144 H, Calcium 8.8 Micro: Microbiology 11/12/22 17:55 Urine, Clean Catch Legionella Antigen - Final 11/12/22 17:55 Urine, Clean Catch Streptococcus pneumoniae Antigen (M - Final 11/12/22 12:50 Nasal Secretion SARS-CoV-2 & FLU Antigen (Rapid) - Final Rhythm Strip Rhythm Strip: Sinus Rhythm Rate: 91 Ectopy: None Physical Exam Narrative Patient states her left-sided rib pain is better about 5-6/10 intensity localized. Left-sided chest still hurts while moving. Evaluated by PT. PT recommended SNF. Physical exam General: Alert, Oriented x3, Cooperative HEENT: Atraumatic, PERRLA, EOMI, Normocephalic Oral: Oral mucosa moist.. No Gingival or Mucosal Lesions/ Ulcerations Neck: Supple, No JVD, Negative Carotid Bruits Chest wall/lungs: Air entry diminished in bilateral lung bases. Bilateral expiratory rhonchi. Left lower posterior lateral rib tenderness Cardiovascular: Regular rate, Regular Rhythm, Normal S1, Normal S2, no murmurs /gallops/rubs. Abdomen: Bowel Sounds Present, Soft, Non Tender, Non-Distended : No renal angle tenderness. No suprapubic tenderness. Extremities: No edema, Capillary Refill Less than 3 Seconds Skin: No rashes, No breakdown Musculoskeletal: No Tenderness to Palpation of Joints or Extremities. Muscle strength 4+/5 at knee and hip joints. ROM restricted. Neurological: Cranial nerves II-XII grossly intact, DTR 2+/4 and Symmetrical, Neuro grossly intact Psych/Mental Status: Flat affect. Mild depression. Assessment & Plan Assessment/Plan (1) Fall: (2) COPD exacerbation: PLAN: Plan This is a 81-year-old female who is being admitted for excruciating left-sided rib pain even at rest, increased cough and shortness of breath consistent with COPD exacerbation 1. Mild COPD exacerbation probably due to left lower rib fracture, increased pain with decreased chest wall movement/respiratory drive with history of chronic emphysema and bronchiectasis: Patient is being admitted on [facility] floo r. Started on bronchodilator, IV Solu-Medrol 40 mg x 2 doses then transition to prednisone 40 mg daily, incentive spirometry, Pep and Mucinex DM. Azithromycin 500 mg for 3 days for COPD exacerbation. Patient has increased cough, shortness of breath and sputum production greenish-yellow in color. CT chest individually reviewed and shows fracture of left lower ribs posteromedially. Diffuse emp hysematous changes with bullous formation worse on upper lobes. Increased atelectasis and scarring of lingular segment and right and left lung base. Stable bronchiectasis of lower lobes. 11/13: Continue incentive spirometry. Bronchodilator as needed and Mucinex DM. Urinary antigens for Legionella and strep is negative. Rapid SARS-CoV-2 and flu antigens are negative. Shortness of breath is much improved. 2. Left lower posterior medial rib fracture with severe pain and mild hypoxia: Patient pulse ox was in 80s on 4 L of baseline oxygen but here it was in 90s on 4 L of oxygen. Patient has chronic hypoxic respiratory failure. Pain control with NSAID, ibuprofen for anti-inflammatory effect, oxycodone, incentive spirometry. She does not meet criteria for acute hypoxic respiratory failure 3. Fall with disequilibrium and degenerative arthritis of lower extremity joints: PT and OT evaluated the patient and recommended SNF. 4. History of COVID-19 pneumonia in October 2020, hypertension, dyslipidemia, right hip arthroplasty for right hip fracture in September 08, 2020, anxiety and depression: Patient was last admitted in October 2020 for acute COVID-19 pneumonia with acute on chronic hypoxic respiratory failure. Home medication reconciliation done. Living will/advanced directive/end of life care: Patient does have living will or advanced directive. Her power of commercial litigation attorney for health is her daughter near the bedside. After discussion of benefits/risks procedures involved with full code, DNR CC arrest and DNR CC, the patient opted for full code. Patient does want artificial life support including intubation, tube feed, ventilator and/chest compression, central venous catheter, vasopressor and DC shock if needed Charges/Coding Visit Charges Inpatient E&M: 88525 Subs Hosp L2
[2022-11-13 19:27] VITALS: PULSE 90; RESP 22; O2SAT 93
[2022-11-13 20:23] VITALS: BP 137/73; PULSE 91; RESP 18; TEMP 37.1; O2SAT 94
[2022-11-13] MEDS: Atorvastatin Calcium 40 MG Tablet PO (20:26)
[2022-11-14] VITALS (11 sets, daily range): BP systolic 102–153; BP diastolic 55–81; PULSE 86–98; RESP 16–20; TEMP 36.6–37.3; O2SAT 92–97; BMI 22.0
[2022-11-14] MEDS: Ipratropium/Albuterol Sulfate 3 ML AMPUL.NEB INHALATION ×4 (00:42→20:08)
[2022-11-14] MEDS: oxyCODONE 5 MG Tablet PO (06:10)
[2022-11-14] MEDS: Acetaminophen 325 MG Tablet 650 MG PO (06:10)
[2022-11-14] MEDS: Bisacodyl 5 MG Tablet PO (06:10)
[2022-11-14] MEDS: Ibuprofen 400 MG Tablet PO ×3 (06:11→20:54)
[2022-11-14] MEDS: predniSONE 20 MG Tablet 40 MG PO (07:35)
[2022-11-14] MEDS: PARoxetine CR 12.5 MG Tablet 37.5 MG PO (07:36)
[2022-11-14] MEDS: Aspirin E.C. 81 MG Tablet PO (07:36)
[2022-11-14] MEDS: buPROPion 75 MG Tablet PO ×2 (07:36→20:54)
[2022-11-14] MEDS: Senna/Docusate Sodium 1 Tablet 2 TABLET PO ×2 (07:36→20:54)
[2022-11-14] MEDS: guaiFENesin/D-Methorphan TAB.SR.12H 1 TABLET PO ×2 (07:37→20:54)
[2022-11-14] MEDS: Enoxaparin 30 MG/0.3 ML Syringe SC (07:37)
[2022-11-14] MEDS: Isosorbide Mononitrate 30 MG Tablet PO (07:37)
[2022-11-14] MEDS: Azithromycin 250 MG Tablet 500 MG PO (07:37)
[2022-11-14] MEDS: busPIRone 15 MG TABLET PO (07:37)
--- NOTE | 2022-11-14 09:30 | US_ITS ---
INDICATION: Dysphagia/odynophagia, feels like marble on swallow EXAMINATION: Ultrasound US Thyroid (eg thyroid, parathyroid, parotid) TECHNIQUE: [place] scale and color doppler imaging was performed of the thyroid gland. COMPARISON: None. FINDINGS: RIGHT THYROID LOBE: 3.6 x 1.8 x 1.5 cm. Heterogenous echotexture with normal vascularity. [Single nodule midpole 8 x 7 x 4 mm with solid and mildly hyperechoic echotexture, regular margins, wider than tall with no internal echogenic foci. TIRADS level 3. LEFT THYROID LOBE: 3.0 x 1.1 x 0.8 cm. Heterogenous echotexture with normal vascularity. [2 nodules, superior and mid pole. Superior nodule measures 3 x 3 x 3 mm, mixed solid and cystic, overall hypoechoic echotexture, wider than tall with smooth margins and no internal echogenic foci. TIRADS level 3. Midpole nodule measures 5 x 5 x 4 mm largely cystic and anechoic, taller than wide, smooth margins with peripheral rim calcification. TIRADS level 4. ISTHMUS: 1.1 mm. No thyroid nodules are present. US/Thyroid IMPRESSION: Bilateral subcentimeter thyroid nodules, mildly to moderately suspicious. Due to small size these may be followed annually. Electronically Signed: Adi Lezama MD at 16:01 EST ,
--- NOTE | 2022-11-14 10:11 | PCM.PN.HOSP ---
Reason for Visit Reason for Visit: Diagnoses Chronic obstructive pulmonary disease with (acute) exacerbation (11/12/22) Unspecified fall, initial encounter (11/12/22) Subjective Subjective Follow-up for left rib fracture with pain. Patient also has coughing and mild swallowing difficulty in the morning. Objective Data Objective Data Vital Signs: Vital Signs Temp Pulse Resp BP Pulse Ox O2 Del Method O2 Flow Rate 98.9 F 88 16 153/59 H 94 Nasal Cannula 2 11/14/22 08:26 11/14/22 08:26 11/14/22 08:26 11/14/22 08:26 11/14/22 08:31 11/14/22 08:26 11/14/22 08:31 Oxygen Flow Rate (L/min) 2 Oxygen Delivery Method Nasal Cannula Weight: 116 lb 13.52 oz Body Mass Index (BMI) 22.0 Intake & Output: Intake and Output for Last 24 Hours 11/12/22 11/13/22 11/14/22 23:59 23:59 23:59 Intake Total 710 / 710 1000 / 1000 Output Total 150 / 150 Balance 560 / 560 1000 / 1000 Lab / Micro Data Result Diagrams: 11/13/22 05:40 11/13/22 05:40 Micro: Microbiology 11/12/22 17:55 Urine, Clean Catch Legionella Antigen - Final 11/12/22 17:55 Urine, Clean Catch Streptococcus pneumoniae Antigen (M - Final 11/12/22 12:50 Nasal Secretion SARS-CoV-2 & FLU Antigen (Rapid) - Final Rhythm Strip Rhythm Strip: Sinus Rhythm Rate: 91 Ectopy: None Physical Exam Narrative Patient had cough while swallowing. She feels that she has marblelike sensation on left thyroid lobe region. On my testing it took longer time for her to swallow gulp of fluid. Patient states her left-sided rib pain is better about 4-5/10 intensity localized. Left-sided chest still hurts while moving. Evaluated by PT. PT recommended SNF. Physical exam General: Alert, Oriented x3, Cooperative HEENT: Atraumatic, PERRLA, EOMI, Normocephalic Oral: Oral mucosa moist.. No Gingival or Mucosal Lesions/ Ulcerations Neck/thyroid: Thyroid palpation on right side during swallowing provoked cough and choking sensation. No definite palpation of thyroid nodule. Supple, No JVD, Negative Carotid Bruits Chest wall/lungs: Air entry diminished in bilateral lung bases. Bilateral expiratory rhonchi. Mild left lower posterior lateral rib tenderness Cardiovascular: Regular rate, Regular Rhythm, Normal S1, Normal S2, no murmurs/gallops/rubs. Abdomen: Bowel Sounds Present, Soft, Non Tender, Non-Distended : No renal angle tenderness. No suprapubic tenderness. Extremities: No edema, Capillary Refill Less than 3 Seconds Skin: No rashes, No breakdown Musculoskeletal: No Tenderness to Palpation of Joints or Extremities. Muscle strength 4+/5 at knee and hip joints. ROM restricted. Neurological: Cranial nerves II-XII grossly intact, DTR 2+/4 and Symmetrical, Neuro grossly intact Psych/Mental Status: Flat affect. Mild depression. Assessment & Plan Assessment/Plan (1) Fall: (2) COPD exacerbation: PLAN: Plan This is a 81-year-old female who is being admitted for excruciating left-sided rib pain even at rest, increased cough and shortness of breath consistent with COPD exacerbation 1. Mild COPD exacerbation probably due to left lower rib fracture, increased pain with decreased chest wall movement/respiratory drive with history of chronic emphysema and bronchiectasis: Patient is being admitted on MedSurg floor. Started on bronchodilator, IV Solu-Medrol 40 mg x 2 doses then transition to prednisone 40 mg daily, incentive spirometry, Pep and Mucinex DM. Azithromycin 500 mg for 3 days for COPD exacerbation. Patient has increased cough, shortness of breath and sputum production greenish-yellow in color. CT chest individually reviewed and shows fracture of left lower ribs posteromedially. Diffuse emphysematous changes with bullous formation worse on upper lobes. Increased atelectasis and scarring of lingular segment and right and left lung base. Stable bronchiectasis of lower lobes. 11/13: Continue incentive spirometry. Bronchodilator as needed and Mucinex DM. Urinary antigens for Legionella and strep is negative. Rapid SARS-CoV-2 and flu antigens are negative. Shortness of breath is much improved. 11/14: Patient is getting better. Oropharyngeal cervical dysphagia seems due to thyroid enlargement: On bedside swallow test seems mild enlargement of right thyroid lobe that provoked coughing and mild choking sensation. Speech therapy for swallow evaluation. Thyroid ultrasound ordered. N.p.o. until nursing swallow screen and then dysphagia diet. 2. Left lower posterior medial rib fracture with severe pain and mild hypoxia: Patient pulse ox was in 80s on 4 L of baseline oxygen but here it was in 90s on 4 L of oxygen. Patient has chronic hypoxic respiratory failure. Pain control with NSAID, ibuprofen for anti-inflammatory effect, oxycodone, incentive spirometry. She does not meet criteria for acute hypoxic respiratory failure 3. Fall with disequilibrium and degenerative arthritis of lower extremity joints: PT and OT evaluated the patient and recommended SNF. 4. History of COVID-19 pneumonia in October 2020, hypertension, dyslipidemia, right hip arthroplasty for right hip fracture in September 08, 2020, anxiety and depression: Patient was last admitted in October 2020 for acute COVID-19 pneumonia with acute on chronic hypoxic respiratory failure. Home medication reconciliation done. Living will/advanced directive/end of life care: Patient does have living will or advanced directive. Her power of automatic machine attendant for health is her daughter near the bedside. After discussion of benefits/risks procedures involved with full code, DNR CC arrest and DNR CC, the patient opted for full code. Patient does want artificial life support including intubation, tube feed, ventilator and/chest compression, central venous catheter, vasopressor and DC shock if needed Charges/Coding Visit Charges Inpatient E&M: 50525 Subs Hosp L2
[2022-11-14 11:37] LABS: Thyroid Stim Hormone (TSH) 3.96 uIU/mL (0.358-3.74)
[2022-11-14] MEDS: Atorvastatin Calcium 40 MG Tablet PO (20:54)
[2022-11-15] VITALS (10 sets, daily range): BP systolic 119–164; BP diastolic 73–81; PULSE 85–97; RESP 16–20; TEMP 36.7–37.3; O2SAT 90–97; BMI 22.3
[2022-11-15] MEDS: Ipratropium/Albuterol Sulfate 3 ML AMPUL.NEB INHALATION ×4 (01:36→20:09)
[2022-11-15] MEDS: Ibuprofen 400 MG Tablet PO ×3 (05:48→20:39)
[2022-11-15] MEDS: Acetaminophen 325 MG Tablet 650 MG PO (05:56)
[2022-11-15] MEDS: Bisacodyl 5 MG Tablet PO (05:56)
--- NOTE | 2022-11-15 08:21 | PCM.PN.HOSP ---
Reason for Visit Reason for Visit: Diagnoses Chronic obstructive pulmonary disease with (acute) exacerbation (11/12/22) Unspecified fall, initial encounter (11/12/22) Subjective Subjective Follow-up for left-sided rib pain. Mild dysphagia. Objective Data Objective Data Vital Signs: Vital Signs Temp Pulse Resp BP Pulse Ox O2 Del Method O2 Flow Rate 99.1 F 97 18 159/81 H 94 Nasal Cannula 2 11/15/22 08:00 11/15/22 08:00 11/15/22 08:00 11/15/22 08:00 11/15/22 08:00 11/15/22 08:00 11/15/22 08:00 Oxygen Flow Rate (L/min) 2 Oxygen Delivery Method Nasal Cannula Weight: 118 lb 2.684 oz Body Mass Index (BMI) 22.3 Intake & Output: Intake and Output for Last 24 Hours 11/13/22 11/14/22 11/16/22 23:59 23:59 00:59 Intake Total 1000 / 1000 300 / 300 Balance 1000 / 1000 300 / 300 Lab / Micro Data Result Diagrams: 11/13/22 05:40 11/13/22 05:40 Labs: Laboratory Results - last 24 hr 11/14/22 10:40: TSH 3.96 H Micro: Microbiology 11/12/22 17:55 Urine, Clean Catch Legionella Antigen - Final 11/12/22 17:55 Urine, Clean Catch Streptococcus pneumoniae Antigen (M - Final 11/12/22 12:50 Nasal Secretion SARS-CoV-2 & FLU Antigen (Rapid) - Final Radiography Diagnostic Testing: Radiology Impression Thyroid Ultrasound 11/14/22 09:30 IMPRESSION: Bilateral subcentimeter thyroid nodules, mildly to moderately suspicious. Due to small size these may be followed annually. Electronically Signed: Adi Lezama MD at 16:01 EST , Rhythm Strip Rhythm Strip: Sinus Rhythm Rate: 91 Ectopy: None Physical Exam Narrative Patient had cough while swallowing. She feels that she has marblelike sensation on left thyroid lobe region. On my testing it took longer time for her to swallow gulp of fluid. Patient states her left-sided rib pain is better about 4-5/10 intensity localized. Left-sided chest still hurts while moving. Evaluated by PT. PT recommended SNF. Physical exam General: Alert, Oriented x3, Cooperative HEENT: Atraumatic, PERRLA, EOMI, Normocephalic Oral: Oral mucosa moist.. No Gingival or Mucosal Lesions/ Ulcerations Neck/thyroid: Thyroid palpation no clinically palpable nodule. Supple, No JVD, Negative Carotid Bruits Chest wall/lungs: Air entry diminished in bilateral lung bases. Bilateral expiratory rhonchi. Mild left lower posterior lateral rib tenderness Cardiovascular: Regular rate, Regular Rhythm, Normal S1, Normal S2, no murmurs/gallops/rubs. Abdomen: Bowel Sounds Present, Soft, Non Tender, Non-Distended : No renal angle tenderness. No suprapubic tenderness. Extremities: No edema, Capillary Refill Less than 3 Seconds Skin: No rashes, No breakdown Musculoskeletal: No Tenderness to Palpation of Joints or Extremities. Muscle strength 4+/5 at knee and hip joints. ROM restricted. Neurological: Cranial nerves II-XII grossly intact, DTR 2+/4 and Symmetrical, Neuro grossly intact Psych/Mental Status: Flat affect. Mild depression. Assessment & Plan Assessment/Plan (1) Fall: (2) COPD exacerbation: PLAN: Plan This is a 81-year-old female who is being admitted for excruciating left-sided rib pain even at rest, increased cough and shortness of breath consistent with COPD exacerbation 1. Mild COPD exacerbation probably due to left lower rib fracture, increased pain with decreased chest wall movement/respiratory drive with history of chronic emphysema and bronchiectasis: [facility]. Started on bronchodilator, IV Solu-Medrol 40 mg x 2 doses then transition to prednisone 40 mg daily, incentive spirometry, Pep and Mucinex DM. Azithromycin 500 mg for 3 days for COPD exacerbation. Patient has increased cough, shortness of breath and sputum production greenish-yellow in color. CT chest individually reviewed and shows fracture of left lower ribs posteromedially. Diffuse emphysematous changes with bullous formation worse on upper lobes. Increased atelectasis and scarring of lingular segment and right and left lung base. Stable bronchiectasis of lower lobes. 11/13: Continue incentive spirometry. Bronchodilator as needed and Mucinex DM. Urinary antigens for Legionella and strep is negative. Rapid SARS-CoV-2 and flu antigens are negative. Shortness of breath is much improved. 11/14: Patient is getting better. Oropharyngeal cervical dysphagia seems due to thyroid enlargement: On bedside swallow test seems mild enlargement of right thyroid lobe that provoked coughing and mild choking sensation. Speech therapy for swallow evaluation. Thyroid ultrasound ordered. N.p.o. until nursing swallow screen and then dysphagia diet. 11/15: Patient evaluated by his speech therapist. Recommended regular texture diet with minced and moist thin liquid via straw with compensatory strategies. I feel patient is sometimes reflexive spasm to cold water and choking. Patient advised to drink normal temperature water. Thyroid ultrasound shows bilateral subcentimeter thyroid nodules. Due to her advanced age, I do not think it will progress to clinically significant large nodule or malignant lesion. Although recommended annual ultrasound but she does not want to follow and I agree with her. 2. Left lower posterior medial rib fracture with severe pain and mild hypoxia: Patient pulse ox was in 80s on 4 L of baseline oxygen but here it was in 90s on 4 L of oxygen. Patient has chronic hypoxic respiratory failure. Pain control with NSAID, ibuprofen for anti-inflammatory effect, oxycodone, incentive spirometry. She does not meet criteria for acute hypoxic respiratory failure 3. Fall with disequilibrium and degenerative arthritis of lower extremity joints: PT and OT evaluated the patient and recommended SNF. 4. History of COVID-19 pneumonia in October 2020, hypertension, dyslipidemia, right hip arthroplasty for right hip fracture in September 08, 2020, anxiety and depression: Patient was last admitted in October 2020 for acute COVID-19 pneumonia with acute on chronic hypoxic respiratory failure. Home medication reconciliation done. Clinical Impression(s) from Imaging Studies Chest CTA 11/12/22 07:08 IMPRESSION: No evidence of pulmonary embolism. Diffuse emphysematous changes with bullous formation and scarring as described. Electronically Signed: Shreyas Westbrook MD at 9:08 EST , Thyroid Ultrasound 11/14/22 09:30 IMPRESSION: Bilateral subcentimeter thyroid nodules, mildly to moderately suspicious. Due to small size these may be followed annually. Living will/advanced directive/end of life care: Patient does have living will or advanced directive. Her power of doctor of dental medicine for health is her daughter near the bedside. After discussion of benefits/risks procedures involved with full code, DNR CC arrest and DNR CC, the patient opted for full code. Patient does want artificial life support including intubation, tube feed, ventilator and/chest compression, central venous catheter, vasopressor and DC shock if needed Charges/Coding Visit Charges Inpatient E&M: 36571 Subs Hosp L2
[2022-11-15] MEDS: Senna/Docusate Sodium 1 Tablet 2 TABLET PO ×2 (08:49→20:39)
[2022-11-15] MEDS: predniSONE 20 MG Tablet 40 MG PO (08:50)
[2022-11-15] MEDS: Isosorbide Mononitrate 30 MG Tablet PO (08:50)
[2022-11-15] MEDS: PARoxetine CR 12.5 MG Tablet 37.5 MG PO (08:50)
[2022-11-15] MEDS: guaiFENesin/D-Methorphan TAB.SR.12H 1 TABLET PO ×2 (08:50→20:39)
[2022-11-15] MEDS: Aspirin E.C. 81 MG Tablet PO (08:50)
[2022-11-15] MEDS: busPIRone 15 MG TABLET PO (08:51)
[2022-11-15] MEDS: Enoxaparin 30 MG/0.3 ML Syringe SC (08:51)
[2022-11-15] MEDS: buPROPion 75 MG Tablet PO ×2 (08:52→20:39)
[2022-11-15] MEDS: Atorvastatin Calcium 40 MG Tablet PO (20:39)
[2022-11-16] VITALS (10 sets, daily range): BP systolic 117–156; BP diastolic 72–85; PULSE 84–98; RESP 16–20; TEMP 36.7–37.2; O2SAT 91–99; BMI 22.3
[2022-11-16] MEDS: Ipratropium/Albuterol Sulfate 3 ML AMPUL.NEB INHALATION ×4 (01:15→19:25)
[2022-11-16] MEDS: Ibuprofen 400 MG Tablet PO ×3 (05:24→20:38)
[2022-11-16] MEDS: Bisacodyl 5 MG Tablet PO (05:28)
--- NOTE | 2022-11-16 07:46 | PN.HOSP_ITS ---
Reason for Visit Reason for Visit: Diagnoses Chronic obstructive pulmonary disease with (acute) exacerbation (11/12/22) Unspecified fall, initial encounter (11/12/22) Subjective Subjective Breathing better. Rib pain ongoing, but improved. Objective Data Objective Data Vital Signs: Vital Signs Temp Pulse Resp BP Pulse Ox O2 Del Method O2 Flow Rate 36.8 C 92 18 152/85 H 97 Nasal Cannula 2 11/16/22 03:11 11/16/22 03:11 11/16/22 03:11 11/16/22 03:11 11/16/22 03:11 11/16/22 03:11 11/16/22 03:11 Oxygen Flow Rate (L/min) 2 Oxygen Delivery Method Nasal Cannula Weight: 53.6 kg Body Mass Index (BMI) 22.3 Intake & Output: Intake and Output for Last 24 Hours 11/14/22 11/15/22 11/16/22 22:59 23:59 23:59 Intake Total Balance Lab / Micro Data Result Diagrams: 11/13/22 05:40 11/13/22 05:40 Micro: Microbiology 11/12/22 17:55 Urine, Clean Catch Legionella Antigen - Final 11/12/22 17:55 Urine, Clean Catch Streptococcus pneumoniae Antigen (M - Final 11/12/22 12:50 Nasal Secretion SARS-CoV-2 & FLU Antigen (Rapid) - Final Rhythm Strip Rhythm Strip: Sinus Rhythm Rate: 91 Ectopy: None Physical Exam Const alert and no apparent distress HEENT head/scalp atraumatic and moist oral mucous membranes Resp normal respiratory effort, no retractions, no use of accessory muscles and clear to auscultation bilaterally Cardio regular rate, regular rhythm, S1 normal heart sound and S2 normal heart sound GI normal to inspection, nondistended, normoactive bowel sounds, soft to palpation, non-tender and non-distended Extremity normal to inspection Assessment & Plan Assessment/Plan (1) COPD exacerbation: PLAN: Mild COPD exacerbation probably due to left lower rib fracture, increased pain with decreased chest wall movement/respiratory drive with history of chronic emphysema and bronchiectasis: Patient is being admitted on MedSurg floor. Started on bronchodilator, IV Solu-Medrol 40 mg x 2 doses then transition to prednisone 40 mg daily, incentive spirometry, Pep and Mucinex DM. Azithromycin 500 mg for 3 days for COPD exacerbation. Patient has increased cough, shortness of breath and sputum production greenish-yellow in color. CT chest individually reviewed and shows fracture of left lower ribs posteromedially. Diffuse emphysematous changes with bullous formation worse on upper lobes. Increased atelectasis and scarring of lingular segment and right and left lung base. Stable bronchiectasis of lower lobes. 11/13: Continue incentive spirometry. Bronchodilator as needed and Mucinex DM. Urinary antigens for Legionella and strep is negative. Rapid SARS-CoV-2 and flu antigens are negative. Shortness of breath is much improved. 11/14: Patient is getting better. (2) Dysphagia: PLAN: Oropharyngeal cervical dysphagia seems due to thyroid enlargement: On bedside swallow test seems mild enlargement of right thyroid lobe that provoked coughing and mild choking sensation. Speech therapy for swallow evaluation. Thyroid ultrasound ordered. N.p.o. until nursing swallow screen and then dysphagia diet. 11/15: Patient evaluated by his speech therapist. Recommended regular texture diet with minced and moist thin liquid via straw with compensatory strategies. I feel patient is sometimes reflexive spasm to cold water and choking. Patient advised to drink normal temperature water. Thyroid ultrasound shows bilateral subcentimeter thyroid nodules. Due to her advanced age, I do not think it will progress to clinically significant large nodule or malignant lesion. Although recommended annual ultrasound but she does not want to follow and I agree with her. (3) Fall: PLAN: Fall with disequilibrium and degenerative arthritis of lower extremity joints: PT and OT evaluated the patient and recommended SNF. (4) Multiple fractures of ribs of left side: PLAN: Left lower posterior medial rib fracture with severe pain and mild hypoxia: Patient pulse ox was in 80s on 4 L of baseline oxygen but here it was in 90s on 4 L of oxygen. Patient has chronic hypoxic respiratory failure. Pain control with NSAID, ibuprofen for anti-inflammatory effect, oxycodone, incentive spirometry. She does not meet criteria for acute hypoxic respiratory failure PLAN: Plan Chronic conditions: * History of COVID-19 pneumonia in October 2020, * hypertension, * dyslipidemia, * right hip arthroplasty for right hip fracture in September 08, 2020, * anxiety and depression: Home medication reconciliation done. VTE prophylaxis: LMWH Living will/advanced directive/end of life care: Patient does have living will or advanced directive. Her power of gang head saw operator for health is her daughter near the bedside. After discussion of benefits/risks procedures involved with full code, DNR CC arrest and DNR CC, the patient opted for full code. Patient does want artificial life support including intubation, tube feed, ventilator and/chest compression, central venous catheter, vasopressor and DC shock if needed Disposition: to SNF Charges/Coding Visit Charges Inpatient E&M: 48175 Subs Hosp L2
[2022-11-16] MEDS: predniSONE 20 MG Tablet 40 MG PO (08:00)
[2022-11-16] MEDS: Aspirin E.C. 81 MG Tablet PO (10:05)
[2022-11-16] MEDS: PARoxetine CR 12.5 MG Tablet 37.5 MG PO (10:05)
[2022-11-16] MEDS: Isosorbide Mononitrate 30 MG Tablet PO (10:06)
[2022-11-16] MEDS: Enoxaparin 30 MG/0.3 ML Syringe SC (10:06)
[2022-11-16] MEDS: busPIRone 15 MG TABLET PO (10:06)
--- NOTE | 2022-11-16 10:06 | CASEMGMT ---
Social Work SW contacted [facility] via [email or web address] to check on precert. Will await response. LEIDY Cunningham
[2022-11-16] MEDS: guaiFENesin/D-Methorphan TAB.SR.12H 1 TABLET PO ×2 (10:07→20:38)
[2022-11-16] MEDS: buPROPion 75 MG Tablet PO ×2 (10:07→20:38)
[2022-11-16] MEDS: Atorvastatin Calcium 40 MG Tablet PO (20:38)
[2022-11-17] VITALS (11 sets, daily range): BP systolic 119–154; BP diastolic 68–77; PULSE 81–98; RESP 12–18; TEMP 36.8–37.2; O2SAT 88–98; BMI 21.9
[2022-11-17] MEDS: Ibuprofen 400 MG Tablet PO ×3 (06:03→20:52)
--- NOTE | 2022-11-17 07:26 | PN.HOSP_ITS ---
Reason for Visit Reason for Visit: Diagnoses Chronic obstructive pulmonary disease with (acute) exacerbation (11/12/22) Dysphagia, unspecified (11/12/22) Multiple fractures of ribs, left side, initial encounter for closed fracture (11/12/22) Unspecified fall, initial encounter (11/12/22) Subjective Subjective Well. Breathing well. Rib pain is feeling better. Would like her diet change from transitional to regular. Objective Data Objective Data Vital Signs: Vital Signs Temp Pulse Resp BP Pulse Ox O2 Del Method O2 Flow Rate 36.8 C 89 18 142/77 H 95 Nasal Cannula 4 11/17/22 02:29 11/17/22 02:29 11/17/22 02:29 11/17/22 02:29 11/17/22 02:29 11/17/22 02:31 11/17/22 02:31 FiO2 3 11/16/22 07:49 Oxygen Flow Rate (L/min) 4 Oxygen Delivery Method Nasal Cannula Weight: 52.8 kg Body Mass Index (BMI) 21.9 Intake & Output: Intake and Output for Last 24 Hours 11/15/22 11/16/22 11/17/22 23:59 23:59 23:59 Intake Total 400 / 400 Balance 400 / 400 Lab / Micro Data Result Diagrams: 11/13/22 05:40 11/13/22 05:40 Micro: Microbiology 11/12/22 17:55 Urine, Clean Catch Legionella Antigen - Final 11/12/22 17:55 Urine, Clean Catch Streptococcus pneumoniae Antigen (M - Final 11/12/22 12:50 Nasal Secretion SARS-CoV-2 & FLU Antigen (Rapid) - Final Rhythm Strip Rhythm Strip: Sinus Rhythm Rate: 91 Ectopy: None Physical Exam Const alert and no apparent distress Resp normal respiratory effort and no retractions Resp Narrative: Diminished but clear Cardio regular rate, regular rhythm, S1 normal heart sound and S2 normal heart sound GI normal to inspection, nondistended, normoactive bowel sounds, soft to palpation, non-tender and non-distended Extremity normal to inspection Assessment & Plan Assessment/Plan (1) COPD exacerbation: PLAN: Mild COPD exacerbation probably due to left lower rib fracture, increased pain with decreased chest wall movement/respiratory drive with history of chronic emphysema and bronchiectasis: Patient is being admitted on [facility] floor. Started on bronchodilator, IV Solu-Medrol 40 mg x 2 doses then transition to prednisone 40 mg daily, incentive spirometry, Pep and Mucinex DM. Azithromycin 500 mg for 3 days for COPD exacerbation. Patient has increased cough, shortness of breath and sputum production greenish-yellow in color. CT chest individually reviewed and shows fracture of left lower ribs posteromedially. Diffuse emphysematous changes with bullous formation worse on upper lobes. Increased atelectasis and scarring of lingular segment and right and left lung base. Stable bronchiectasis of lower lobes. 11/13: Continue incentive spirometry. Bronchodilator as needed and Mucinex DM. Urinary antigens for Legionella and strep is negative. Rapid SARS-CoV-2 and flu antigens are negative. Shortness of breath is much improved. 11/14: Patient is getting better. (2) Dysphagia: PLAN: Oropharyngeal cervical dysphagia seems due to thyroid enlargement: On bedside swallow test seems mild enlargement of right thyroid lobe that provoked coughing and mild choking sensation. Speech therapy for swallow evaluation. Thyroid ultrasound ordered. N.p.o. until nursing swallow screen and then dysphagia diet. 11/15: Patient evaluated by his speech therapist. Recommended regular texture diet with minced and moist thin liquid via straw with compensatory strategies. I feel patient is sometimes reflexive spasm to cold water and choking. Patient advised to drink normal temperature water. Thyroid ultrasound shows bilateral subcentimeter thyroid nodules. Due to her advanced age, I do not think it will progress to clinically significant large nodule or malignant lesion. Although recommended annual ultrasound but she does not want to follow and I agree with her. Seen by speech therapy on the and recommended a regular diet. Will change. (3) Fall: PLAN: Fall with disequilibrium and degenerative arthritis of lower extremity joints: PT and OT evaluated the patient and recommended SNF. (4) Multiple fractures of ribs of left side: PLAN: Left lower posterior medial rib fracture with severe pain and mild hypoxia: Patient pulse ox was in 80s on 4 L of baseline oxygen but here it was in 90s on 4 L of oxygen. Patient has chronic hypoxic respiratory failure. Pain control with NSAID, ibuprofen for anti-inflammatory effect, oxycodone, incentive spirometry. She does not meet criteria for acute hypoxic respiratory failure PLAN: Plan Chronic conditions: * History of COVID-19 pneumonia in October 2020, * hypertension, * dyslipidemia, * right hip arthroplasty for right hip fracture in September 08, 2020, * anxiety and depression: Home medication reconciliation done. VTE prophylaxis: LMWH Living will/advanced directive/end of life care: Patient does have living will or advanced directive. Her power of consumer marketing manager for health is her daughter near the bedside. After discussion of benefits/risks procedures involved with full code, DNR CC arrest and DNR CC, the patient opted for full code. Patient does want artificial life support including intubation, tube feed, ventilator and/chest compression, central venous catheter, vasopressor and DC shock if needed Disposition: to SNF pending insurance authorization. Charges/Coding Visit Charges Inpatient E&M: 25288 Subs Hosp L2
[2022-11-17] MEDS: Ipratropium/Albuterol Sulfate 3 ML AMPUL.NEB INHALATION ×3 (07:35→19:49)
[2022-11-17] MEDS: predniSONE 20 MG Tablet 40 MG PO (08:02)
[2022-11-17] MEDS: busPIRone 15 MG TABLET PO (09:01)
[2022-11-17] MEDS: Enoxaparin 30 MG/0.3 ML Syringe SC (09:02)
[2022-11-17] MEDS: guaiFENesin/D-Methorphan TAB.SR.12H 1 TABLET PO ×2 (09:02→20:52)
[2022-11-17] MEDS: PARoxetine CR 12.5 MG Tablet 37.5 MG PO (09:02)
[2022-11-17] MEDS: Isosorbide Mononitrate 30 MG Tablet PO (09:02)
[2022-11-17] MEDS: Aspirin E.C. 81 MG Tablet PO (09:02)
[2022-11-17] MEDS: buPROPion 75 MG Tablet PO ×2 (09:03→20:52)
--- NOTE | 2022-11-17 09:25 | TREXTCAR_ITS ---
Diet Diet Order/Speech Therapy: 11/17/22 08:30 Diet: Regular - General Is pt able to select menu?: Yes Diet Comments: 2001 joel Routine Orders/Code Status O2 Liters per Minute: 4 O2 Frequency: Continuous Code Status: Full Code Therapies Weight Bearing: Full weight bearing Physical Therapy: Eval and Treat Occupational Therapy: Eval and Treat Problem/Diagnosis (1) COPD exacerbation: Status: Chronic Code(s): J44.1 - Chronic obstructive pulmonary disease with (acute) exacerbation Plan: Mild COPD exacerbation probably due to left lower rib fracture, increased pain with decreased chest wall movement/respiratory drive with history of chronic emphysema and bronchiectasis: Patient is being admitted on [facility] floor. Started on bronchodilator, IV Solu-Medrol 40 mg x 2 doses then transition to prednisone 40 mg daily, incentive spirometry, Pep and Mucinex DM. Azithromycin 500 mg for 3 days for COPD exacerbation. Patient has increased cough, shortness of breath and sputum production greenish-yellow in color. CT chest individually reviewed and shows fracture of left lower ribs posteromedially. Diffuse emphysematous changes with bullous formation worse on upper lobes. Increased atelectasis and scarring of lingular segment and right and left lung base. Stable bronchiectasis of lower lobes. 11/13: Continue incentive spirometry. Bronchodilator as needed and Mucinex DM. Urinary antigens for Legionella and strep is negative. Rapid SARS-CoV-2 and flu antigens are negative. Shortness of breath is much improved. 11/14: Patient is getting better. (2) Dysphagia: Status: Acute Code(s): R13.10 - Dysphagia, unspecified Plan: Oropharyngeal cervical dysphagia seems due to thyroid enlargement: On bedside swallow test seems mild enlargement of right thyroid lobe that provoked coughing and mild choking sensation. Speech therapy for swallow evaluation. Thyroid ultrasound ordered. N.p.o. until nursing swallow screen and then dysphagia diet. 11/15: Patient evaluated by his speech therapist. Recommended regular texture diet with minced and moist thin liquid via straw with compensatory strategies. I feel patient is sometimes reflexive spasm to cold water and choking. Patient advised to drink normal temperature water. Thyroid ultrasound shows bilateral subcentimeter thyroid nodules. Due to her advanced age, I do not think it will progress to clinically significant large nodule or malignant lesion. Although recommended annual ultrasound but she does not want to follow and I agree with her. Seen by speech therapy on the and recommended a regular diet. Will change. (3) Fall: Status: Inactive Code(s): W19.XXXA - Unspecified fall, initial encounter Plan: Fall with disequilibrium and degenerative arthritis of lower extremity joints: PT and OT evaluated the patient and recommended SNF. (4) Multiple fractures of ribs of left side: Status: Acute Code(s): S22.42XA - Multiple fractures of ribs, left side, initial encounter for closed fracture Plan: Left lower posterior medial rib fracture with severe pain and mild hypoxia: Patient pulse ox was in 80s on 4 L of baseline oxygen but here it was in 90s on 4 L of oxygen. Patient has chronic hypoxic respiratory failure. Pain control with NSAID, ibuprofen for anti-inflammatory effect, oxycodone, incentive sp irometry. She does not meet criteria for acute hypoxic respiratory failure Plan Chronic conditions: * History of COVID-19 pneumonia in October 2020, * hypertension, * dyslipidemia, * right hip arthroplasty for right hip fracture in September 08, 2020, * anxiety and depression: Home medication reconciliation done. VTE prophylaxis: LMWH Living will/advanced directive/end of life care: Patient does have living will or advanced directive. Her power of brimming machine operator for health is her daughter near the bedside. After discussion of benefits/risks procedures involved with full code, DNR CC arrest and DNR CC, the patient opted for full code. Patient does want artificial life support including intubation, tube feed, ventilator and/chest compression, central venous catheter, vasopressor and DC shock if needed Disposition: to SNF pending insurance authorization. Allergies/Procedures Done in Hospital Allergies cefaclor [From [facility]] Allergy (Verified 11/12/22 06:48) Hives Type of Care/Length of Stay Estimated LOS: Convalescent Care Less Than 30 days Type of Care Needed: Skilled Rehab Potential: Fair Prognosis: Fair Additional Orders/Day of Discharge Day of Discharge: 11/17/22 Discharge Plan Admission Admit Date/Time: 11/12/22 11:24 Attending Provider: Ean Chirinos Primary Care Provider: Nicci King Consulting Providers: Geoff Almaraz Discharge Orders/Prescriptions Prescriptions: New acetaminophen 325 mg Tablet 650 mg PO Q6H PRN PRN (Reason: Pain 1-10 Or Fever >100.7) Qty: 0 0RF ibuprofen 400 mg Tablet 400 mg PO Q8 PRN (Reason: Pain, Moderate) Qty: 0 0RF [place] Nasal 0.65 % Aerosol,[place] 2 spray NASAL Q4H PRN PRN (Reason: NASAL DRYNESS) Qty: 0 0RF Continued buspirone 15 mg tablet 15 mg PO DAILY 30 Days Qty: 60 multivitamin 1 EACH tablet 1 tab PO DAILY atorvastatin 40 MG tablet 40 mg PO QHS isosorbide mononitrate 30 MG tablet 30 mg PO DAILY paroxetine HCl 37.5 MG tablet extended release 24 hr 37.5 mg PO DAILY omega-3 fatty acids 1,000 mg Capsule 1,000 mg PO DAILY aspirin 81 mg Tablet,Delayed Release (Dr/Ec) 81 mg PO DAILY ramipril 2.5 mg Capsule 2.5 mg PO DAILY bupropion HCl 75 mg Tablet 75 mg PO BID Vitamin C 100 mg Tablet 100 mg PO DAILY albuterol sulfate 90 mcg/actuation HFA aerosol inhaler 1 inh INHALATION Q4H PRN (Reason: SHORTNESS OF BREATH ) vitamin B complex Capsule 1 cap PO DAILY calcium carbonate-vitamin D3 500 mg-3.125 mcg (125 unit) Tablet 1 tab PO DAILY cholecalciferol (vitamin D3) 125 mcg (5,000 unit) Tablet 125 mcg PO DAILY roflumilast 500 mcg tablet 500 mcg PO DAILY acidophilus-pectin, citrus 100 million cell-10 mg Capsule 1 cap PO DAILY Trelegy Ellipta 100-62.5-25 mcg blister with device 1 inh INHALATION DAILY Azo Cranberry 250 mg Tablet,Chewable 250 mg PO DAILY Referrals / Follow Up: Nicci King DO [Primary Care Provider] - Within 2 Weeks Pedro Joy MD [Med Staff - Active Staff] - Within 1 Month Disposition Disposition (needs filled in before D/C Order can be placed): Long Term Facility
--- NOTE | 2022-11-17 10:32 | CASEMGMT ---
Social Work SW in to pt room to give update that precert is still pending. Pt voiced understanding. SW shared intent to call daughter, Piper and also give update. SW called Piper. Left message informing precert is still pending. LEIDY Cunningham
--- NOTE | 2022-11-17 10:34 | CASEMGMT ---
Social Work Pt stated daughter is POA. SW called daughter to inquire about copies of documents being brought in for pt file. SW left message and informed Piper, pt daughter that the documents can be left with [employer] Specialist or SW. LEIDY Cunningham
--- NOTE | 2022-11-17 14:40 | CASEMGMT ---
Social Work SW inquired about news of precert via [employer]. Will await response from [employer]. PLAN: [employer] [facility], pending precert LEIDY Cunningham
[2022-11-17] MEDS: Atorvastatin Calcium 40 MG Tablet PO (20:52)
[2022-11-18] VITALS (11 sets, daily range): BP systolic 123–154; BP diastolic 65–79; PULSE 79–91; RESP 16–19; TEMP 36.6–36.8; O2SAT 94–99; BMI 21.8
[2022-11-18] MEDS: Ibuprofen 400 MG Tablet PO ×3 (04:56→20:20)
[2022-11-18] MEDS: Ipratropium/Albuterol Sulfate 3 ML AMPUL.NEB INHALATION ×3 (07:05→19:22)
--- NOTE | 2022-11-18 07:37 | PN.HOSP_ITS ---
Reason for Visit Reason for Visit: Diagnoses Chronic obstructive pulmonary disease with (acute) exacerbation (11/12/22) Dysphagia, unspecified (11/12/22) Multiple fractures of ribs, left side, initial encounter for closed fracture (11/12/22) Unspecified fall, initial encounter (11/12/22) Subjective Subjective Breathing well. Rib pain present but improving. Objective Data Objective Data Vital Signs: Vital Signs Temp Pulse Resp BP Pulse Ox O2 Del Method O2 Flow Rate 36.8 C 80 18 151/79 H 99 Nasal Cannula 4 11/18/22 07:36 11/18/22 07:36 11/18/22 07:36 11/18/22 07:36 11/18/22 07:36 11/18/22 07:36 11/18/22 07:36 FiO2 3 11/16/22 07:49 Oxygen Flow Rate (L/min) 4 Oxygen Delivery Method Nasal Cannula Weight: 52.4 kg Body Mass Index (BMI) 21.8 Intake & Output: Intake and Output for Last 24 Hours 11/16/22 11/17/22 11/18/22 23:59 23:59 23:59 Intake Total 400 / 600 450 / 450 Balance 400 / 600 450 / 450 Lab / Micro Data Result Diagrams: 11/13/22 05:40 11/13/22 05:40 Micro: Microbiology 11/12/22 17:55 Urine, Clean Catch Legionella Antigen - Final 11/12/22 17:55 Urine, Clean Catch Streptococcus pneumoniae Antigen (M - Final 11/12/22 12:50 Nasal Secretion SARS-CoV-2 & FLU Antigen (Rapid) - Final Rhythm Strip Rhythm Strip: Sinus Rhythm Rate: 91 Ectopy: None Physical Exam Const alert and no apparent distress HEENT head/scalp atraumatic and moist oral mucous membranes Resp normal respiratory effort, no retractions, no use of accessory muscles and clear to auscultation bilaterally Cardio regular rate, regular rhythm, S1 normal heart sound and S2 normal heart sound Neuro oriented x3 and moves all extremities Sensorium / Orientation: awake and alert Psych affect normal Assessment & Plan Assessment/Plan (1) COPD exacerbation: PLAN: Mild COPD exacerbation probably due to left lower rib fracture, increased pain with decreased chest wall movement/respiratory drive with history of chronic emphysema and bronchiectasis: [facility] Started on bronchodilator, IV Solu-Medrol 40 mg x 2 doses then transition to prednisone 40 mg daily, incentive spirometry, Pep and Mucinex DM. Azithromycin 500 mg for 3 days for COPD exacerbation. Patient has increased cough, shortness of breath and sputum production greenish-yellow in color. CT chest individually reviewed and shows fracture of left lower ribs posteromedially. Diffuse emphysematous changes with bullous formation worse on upper lobes. Increased atelectasis and scarring of lingular segment and right and left lung base. Stable bronchiectasis of lower lobes. Overall improved. Patient has received 6 days of 40 mg of prednisone. We will discontinue. (2) Dysphagia: PLAN: Oropharyngeal cervical dysphagia seems due to thyroid enlargement: On bedside swallow test seems mild enlargement of right thyroid lobe that provoked coughing and mild choking sensation. Speech therapy for swallow evaluation. Thyroid ultrasound ordered. N.p.o. until nursing swallow screen and then dysphagia diet. 11/15: Patient evaluated by his speech therapist. Recommended regular texture diet with minced and moist thin liquid via straw with compensatory strategies. I feel patient is sometimes reflexive spasm to cold water and choking. Patient advised to drink normal temperature water. Thyroid ultrasound shows bilateral subcentimeter thyroid nodules. Due to her advanced age, I do not think it will progress to clinically significant large nodule or malignant lesion. Although recommended annual ultrasound but she does not want to follow and I agree with her. Seen by speech therapy on the and recommended a regular diet. Will change. (3) Fall: PLAN: Fall with disequilibrium and degenerative arthritis of lower extremity joints: PT and OT evaluated the patient and recommended SNF. (4) Multiple fractures of ribs of left side: PLAN: Left lower posterior medial rib fracture with severe pain and mild hypoxia: Patient pulse ox was in 80s on 4 L of baseline oxygen but here it was in 90s on 4 L of oxygen. Patient has chronic hypoxic respiratory failure. Pain control with NSAID, ibuprofen for anti-inflammatory effect, oxycodone, incentive spirometry. She does not meet criteria for acute hypoxic respiratory failure PLAN: Plan Chronic conditions: * History of COVID-19 pneumonia in October 2020, * hypertension, * dyslipidemia, * right hip arthroplasty for right hip fracture in September 08, 2020, * anxiety and depression: Home medication reconciliation done. VTE prophylaxis: LMWH Living will/advanced directive/end of life care: Patient does have living will o r advanced directive. Her power of trade mark attorney for health is her daughter near the bedside. After discussion of benefits/risks procedures involved with full code, DNR CC arrest and DNR CC, the patient opted for full code. Patient does want artificial life support including intubation, tube feed, ve ntilator and/chest compression, central venous catheter, vasopressor and DC shock if needed Disposition: to SNF pending insurance authorization. Charges/Coding Visit Charges Inpatient E&M: 82055 Subs Hosp L2
[2022-11-18] MEDS: PARoxetine CR 12.5 MG Tablet 37.5 MG PO (07:38)
[2022-11-18] MEDS: Senna/Docusate Sodium 1 Tablet 2 TABLET PO ×2 (07:38→20:21)
[2022-11-18] MEDS: predniSONE 20 MG Tablet 40 MG PO (07:38)
[2022-11-18] MEDS: busPIRone 15 MG TABLET PO (07:44)
[2022-11-18] MEDS: Isosorbide Mononitrate 30 MG Tablet PO (07:44)
[2022-11-18] MEDS: Aspirin E.C. 81 MG Tablet PO (07:44)
[2022-11-18] MEDS: guaiFENesin/D-Methorphan TAB.SR.12H 1 TABLET PO ×2 (07:45→20:21)
[2022-11-18] MEDS: buPROPion 75 MG Tablet PO ×2 (07:45→20:21)
--- NOTE | 2022-11-18 08:23 | CASEMGMT ---
Addendum entered by Yara Perales 11/18/22 11:58: SW in to speak with pt and give update that insurance auth is still pending. Pt voiced understanding, asked SW to call daughter Piper to provide information. SW informed pt that daughter had also been called and is aware that percert is pending. Pt hopeful to leave soon. Pt stated I've been here for two weeks. SW informed pt that hospital stay has been 6 days. Pt replied Oh, well it feels so much longer. PLAN: [place] [facility], pending precert LEIDY Cunningham Original Note: Social Work SW received message in [employer] from [employer]. director economic for [employer], Concepción Mcclellan, shared that precert has still not be obtained. Concepción reported that for the last two weeks there have been significant delays with insurance companies. Concepción also shared that collaboration with the SNF's complex case manager will occur to determine if there have been any changes in the auth status. PLAN: [employer] [facility], Pending precert LEIDY Cunningham
[2022-11-18] MEDS: Enoxaparin 30 MG/0.3 ML Syringe SC (09:27)
[2022-11-18] MEDS: Atorvastatin Calcium 40 MG Tablet PO (20:20)
[2022-11-19 04:01] VITALS: BP 164/92; PULSE 81; RESP 18; TEMP 36.6; O2SAT 98
[2022-11-19 05:51] VITALS: BMI 22.1
[2022-11-19 06:05] VITALS: BP 144/84
[2022-11-19] MEDS: Ibuprofen 400 MG Tablet PO ×2 (06:06→14:38)
[2022-11-19] MEDS: Ipratropium/Albuterol Sulfate 3 ML AMPUL.NEB INHALATION ×2 (07:14→13:19)
[2022-11-19 07:15] VITALS: PULSE 74; RESP 16; O2SAT 98
--- NOTE | 2022-11-19 07:35 | PCM.PN.HOSP ---
Reason for Visit Reason for Visit: Diagnoses Chronic obstructive pulmonary disease with (acute) exacerbation (11/12/22) Dysphagia, unspecified (11/12/22) Multiple fractures of ribs, left side, initial encounter for closed fracture (11/12/22) Unspecified fall, initial encounter (11/12/22) Subjective Subjective Feels that she can go home now. Objective Data Objective Data Vital Signs: Vital Signs Temp Pulse Resp BP Pulse Ox O2 Del Method O2 Flow Rate 36.6 C 81 18 144/84 H 98 Nasal Cannula 4 11/19/22 04:01 11/19/22 04:01 11/19/22 04:01 11/19/22 06:05 11/19/22 04:01 11/19/22 04:01 11/19/22 04:01 FiO2 3 11/16/22 07:49 Oxygen Flow Rate (L/min) 4 Oxygen Delivery Method Nasal Cannula Weight: 53.3 kg Body Mass Index (BMI) 22.1 Intake & Output: Intake and Output for Last 24 Hours 11/17/22 11/18/22 11/19/22 23:59 23:59 23:59 Intake Total 400 / 600 450 / 850 650 / 650 Balance 400 / 600 450 / 850 650 / 650 Lab / Micro Data Result Diagrams: 11/13/22 05:40 11/13/22 05:40 Micro: Microbiology 11/12/22 17:55 Urine, Clean Catch Legionella Antigen - Final 11/12/22 17:55 Urine, Clean Catch Streptococcus pneumoniae Antigen (M - Final 11/12/22 12:50 Nasal Secretion SARS-CoV-2 & FLU Antigen (Rapid) - Final Rhythm Strip Rhythm Strip: Sinus Rhythm Rate: 91 Ectopy: None Physical Exam Const alert and no apparent distress HEENT head/scalp atraumatic and moist oral mucous membranes Resp normal respiratory effort, no retractions, no use of accessory muscles and clear to auscultation bilaterally Cardio regular rate, regular rhythm, S1 normal heart sound and S2 normal heart sound GI normal to inspection, nondistended, normoactive bowel sounds, soft to palpation, non-tender and non-distended Extremity normal to inspection Assessment & Plan Assessment/Plan (1) COPD exacerbation: PLAN: Mild COPD exacerbation probably due to left lower rib fracture, increased pain with decreased chest wall movement/respiratory drive with history of chronic emphysema and bronchiectasis: Patient is being admitted on [facility] floor. Started on bronchodilator, IV Solu-Medrol 40 mg x 2 doses then transition to prednisone 40 mg daily, incentive spirometry, Pep and Mucinex DM. Azithromycin 500 mg for 3 days for COPD exacerbation. Patient has increased cough, shortness of breath and sputum production greenish-yellow in color. CT chest individually reviewed and shows fracture of left lower ribs posteromedially. Diffuse emphysematous changes with bullous formation worse on upper lobes. Increased atelectasis and scarring of lingular segment and right and left lung base. Stable bronchiectasis of lower lobes. Overall improved. Patient has received 6 days of 40 mg of prednisone. We will discontinue. (2) Dysphagia: PLAN: Oropharyngeal cervical dysphagia seems due to thyroid enlargement: On bedside swallow test seems mild enlargement of right thyroid lobe that provoked coughing and mild choking sensation. Speech therapy for swallow evaluation. Thyroid ultrasound ordered. N.p.o. until nursing swallow screen and then dysphagia diet. 11/15: Patient evaluated by his speech therapist. Recommended regular texture diet with minced and moist thin liquid via straw with compensatory strategies. I feel patient is sometimes reflexive spasm to cold water and choking. Patient advised to drink normal temperature water. Thyroid ultrasound shows bilateral subcentimeter thyroid nodules. Due to her advanced age, I do not think it will progress to clinically significant large nodule or malignant lesion. Although recommended annual ultrasound but she does not want to follow and I agree with her. Seen by speech therapy on the and recommended a regular diet. Will change. (3) Fall: PLAN: Fall with disequilibrium and degenerative arthritis of lower extremity joints: PT and OT evaluated the patient and recommended SNF. (4) Multiple fractures of ribs of left side: PLAN: Left lower posterior medial rib fracture with severe pain and mild hypoxia: Patient pulse ox was in 80s on 4 L of baseline oxygen but here it was in 90s on 4 L of oxygen. Patient has chronic hypoxic respiratory failure. Pain control with NSAID, ibuprofen for anti-inflammatory effect, oxycodone, incentive spirometry. She does not meet criteria for acute hypoxic respiratory failure PLAN: Plan Chronic conditions: History of COVID-19 pneumonia in October 2020, hypertension, dyslipidemia, right hip arthroplasty for right hip fracture in September 08, 2020, anxiety and depression: Home medication reconciliation done. VTE prophylaxis: LMWH Living will/advanced directive/end of life care: Patient does have living will or advanced directive. Her power of deputy prosecuting attorney for health is her daughter near the bedside. After discussion of benefits/risks procedures involved with full code, DNR CC arrest and DNR CC, the patient opted for full code. Patient does want artificial life support including intubation, tube feed, ventilator and/chest compression, central venous catheter, vasopressor and DC shock if needed Disposition: to home with home care.
[2022-11-19 09:00] VITALS: BP 130/67; PULSE 89; RESP 16; TEMP 36.9; O2SAT 98
[2022-11-19] MEDS: buPROPion 75 MG Tablet PO (09:24)
[2022-11-19] MEDS: Senna/Docusate Sodium 1 Tablet 2 TABLET PO (09:25)
[2022-11-19] MEDS: Enoxaparin 30 MG/0.3 ML Syringe SC (09:26)
[2022-11-19] MEDS: guaiFENesin/D-Methorphan TAB.SR.12H 1 TABLET PO (09:26)
[2022-11-19] MEDS: PARoxetine CR 12.5 MG Tablet 37.5 MG PO (09:26)
[2022-11-19] MEDS: Isosorbide Mononitrate 30 MG Tablet PO (09:26)
[2022-11-19] MEDS: Aspirin E.C. 81 MG Tablet PO (09:26)
[2022-11-19] MEDS: busPIRone 15 MG TABLET PO (09:26)
--- NOTE | 2022-11-19 09:43 | CASEMGMT ---
Addendum entered by Brandie Beck 11/19/22 12:33: Social Work SW received return call from [employer]. Precert continues to be pending. SW updated that pt will be returning home today and to cancel referral. RNCM updated. Plan: home with home health LEIDY Gilbert Original Note: Social Work SW received phone call from patients daughter Piper Peña who inquired if precert has been obtained yet for SNF and SW informed that as of last night precert was still pending. Piper stating she and pt have talked and decided pt can now return home. Pt will be returning home alone. Pt dgt lives next door and is able to check on her before she leaves for work and checks on her after work. Pt has another neighbor who will check on her during the day. Piper is agreeable to home health services. Pt has home O2, a BSC and a rollator. VM left with Concepción at [employer] to check on precert. RNDORYS updated on change of plan. LEIDY Gilbert
--- NOTE | 2022-11-19 10:28 | CASEMGMT ---
Addendum entered by Francesca Anders 11/19/22 13:28: Pt did not require increase in oxygen rx. Addendum entered by Francesca Anders 11/19/22 13:27: Received tc back from [facility], they will plan to see pt on Wednesday. Pt aware. Addendum entered by Francesca Anders 11/19/22 12:33: DIANE SAUL into pt room, pt states she has chosen [facility]. She states her dtr will bring in a portable tank to go home on. TC to Helene at [facility], referral made. Will await acceptance. Original Note: DIANE SAUL made aware that pt would like to dc home with [facility]. DIANE SAUL into pt room, pt states same. Patient was provided a list of [facility] providers including quality and resource use data and consistent with the patient?s preferred geographic region, medical needs, and insurance network were provided from the [employer] Guide. Pt to review list and DIANE SAUL to check back on choices. Pt agreeable to therapy as well as a SN. Pt nurse aware amb pox needed. Pt denies further needs.
--- NOTE | 2022-11-19 10:33 | DS.PCM_ITS ---
Providers Date of Admission: 11/12/22 Primary Care Physician: Dr. Nicci King, DO Reason For Visit: LEFT RIB FRACTURES WITH MILD COPD EXA Diagnosis Discharge Diagnosis (1) COPD exacerbation: Status: Chronic Code(s): J44.1 - Chronic obstructive pulmonary disease with (acute) exacerbation Plan: Mild COPD exacerbation probably due to left lower rib fracture, increased pain with decreased chest wall movement/respiratory drive with history of chronic emphysema and bronchiectasis: Patient is being admitted on [facility] floor. Started on bronchodilator, IV Solu-Medrol 40 mg x 2 doses then transition to prednisone 40 mg daily, incentive spirometry, Pep and Mucinex DM. Azithromycin 500 mg for 3 days for COPD exacerbation. Patient has increased cough, shortness of breath and sputum production greenish-yellow in color. CT chest individually reviewed and shows fracture of left lower ribs posteromedially. Diffuse emphysematous changes with bullous formation worse on upper lobes. Increased atelectasis and scarring of lingular segment and right and left lung base. Stable bronchiectasis of lower lobes. Overall improved. Patient has received 6 days of 40 mg of prednisone. We will discontinue. (2) Dysphagia: Status: Acute Code(s): R13.10 - Dysphagia, unspecified Plan: Oropharyngeal cervical dysphagia seems due to thyroid enlargement: On bedside swallow test seems mild enlargement of right thyroid lobe that provoked coughing and mild choking sensation. Speech therapy for swallow evaluation. Thyroid ultrasound ordered. N.p.o. until nursing swallow screen and then dysphagia diet. 11/15: Patient evaluated by his speech therapist. Recommended regular texture diet with minced and moist thin liquid via straw with compensatory strategies. I feel patient is sometimes reflexive spasm to cold water and choking. Patient advised to drink normal temperature water. Thyroid ultrasound shows bilateral subcentimeter thyroid nodules. Due to her advanced age, I do not think it will progress to clinically significant large nodule or malignant lesion. Although recommended annual ultrasound but she does not want to follow and I agree with h er. Seen by speech therapy on the and recommended a regular diet. Will change. (3) Fall: Status: Inactive Code(s): W19.XXXA - Unspecified fall, initial encounter Plan: Fall with disequilibrium and degenerative arthritis of lower extremity joints: PT and OT evaluated the patient and recommended SNF. (4) Multiple fractures of ribs of left side: Status: Acute Code(s): S22.42XA - Multiple fractures of ribs, left side, initial encounter for closed fracture Plan: Left lower posterior medial rib fracture with severe pain and mild hypoxia: Patient pulse ox was in 80s on 4 L of baseline oxygen but here it was in 90s on 4 L of oxygen. Patient has chronic hypoxic respiratory failure. Pain control with NSAID, ibuprofen for anti-inflammatory effect, oxycodone, incentive spirometry. She does not meet criteria for acute hypoxic respiratory failure Plan Chronic conditions: * History of COVID-19 pneumonia in October 2020, * hypertension, * dyslipidemia, * right hip arthroplasty for right hip fracture in September 08, 2020, * anxiety and depression: Home medication reconciliation done. VTE prophylaxis: LMWH Living will/advanced directive/end of life care: Patient does have living will or advanced directive. Her power of document review attorney for health is her daughter near the bedside. After discussion of benefits/risks procedures involved with full code, DNR CC arrest and DNR CC, the patient opted for full code. Patient does want artificial life support including intubation, tube feed, ventilator and/chest compression, central venous catheter, vasopressor and DC shock if needed Disposition: to home with home care. Medications at Discharge Home Medications atorvastatin 40 mg tablet 40 mg PO QHS CHOLESTEROL 12/28/17 isosorbide mononitrate 30 mg tablet,extended release 24 hr 30 mg PO DAILY HEART/CHEST PAIN 12/28/17 multivitamin 1 tab PO DAILY SUPPLEMENT 12/28/17 paroxetine HCl 37.5 mg tablet,extended release 24 hr 37.5 mg PO DAILY MOOD 12/28/17 buspirone 15 mg tablet 15 mg PO DAILY ANXIETY 30 days #60 tabs 09/22/18 acidophilus 100 million cell-pectin, citrus 10 mg capsule 1 cap PO DAILY GUT HEALTH 11/12/22 albuterol sulfate 90 mcg/actuation aerosol inhaler 1 inh inhalation Q4H PRN SHORTNESS OF BREATH 11/12/22 ascorbic acid (vitamin C) 100 mg tablet (Vitamin C) 100 mg PO DAILY SUPPLEMENT 11/12/22 aspirin 81 mg tablet,delayed release 81 mg PO DAILY HEART HEALTH 11/12/22 bupropion HCl 75 mg tablet 75 mg PO BID DEPRESSION 11/12/22 calcium carbonate 500 mg-vitamin D3 3.125 mcg (125 unit) tablet 1 tab PO DAILY SUPPLEMENT 11/12/22 cholecalciferol (vitamin D3) 125 mcg (5,000 unit) tablet 125 mcg PO DAILY SUPPLEMENT 11/12/22 cranberry fruit concentrate 250 mg chewable tablet (Azo Cranberry) 250 mg PO DAILY UTI PREVENTION 11/12/22 fluticasone fur. 100 mcg-umeclid 62.5 mcg-vilant 25 mcg inhalat.powder (Trelegy Ellipta) 1 inh inhalation DAILY COPD 11/12/22 omega-3 fatty acids 1,000 mg capsule 1,000 mg PO DAILY SUPPLEMENT 11/12/22 ramipril 2.5 mg capsule 2.5 mg PO DAILY HEART 11/12/22 roflumilast 500 mcg tablet 500 mcg PO DAILY COPD 11/12/22 vitamin B complex 1 cap PO DAILY SUPPLEMENT 11/12/22 acetaminophen 325 mg tablet 650 mg PO Q6H PRN PRN Pain 1-10 Or Fever >100.7 #0 tabs 11/17/22 ibuprofen 400 mg tablet 400 mg PO Q8 PRN Pain, Moderate #0 tabs 11/17/22 sodium chloride 0.65 % nasal spray aerosol (Deep Sea Nasal) 2 spray NASAL Q4H PRN PRN NASAL DRYNESS #0 mL 11/17/22 Hospital Course Operations None Procedures None Summary of Care Provided Minutes Spent on Discharge: 28 Hospital Course: Pt presents with falls. Sustained rib fractures. Treated for COPD exacerbation. Plan was for patient to go to SNF, however, there was a prolonged delay in feedback from insurance authorization with no answer for greater than 48 hours. During that time, pt spoke with her daughter and now wishes to go home with home health care. Weight / BMI Weight Weight: 53.3 kg Body Mass Index (BMI) 22.1 ABG / Lab / Microbiology Data Result Diagrams: 11/13/22 05:40 11/13/22 05:40 Microbiology: Microbiology 11/12/22 17:55 Urine, Clean Catch Legionella Antigen - Final 11/12/22 17:55 Urine, Clean Catch Streptococcus pneumoniae Antigen (M - Final 11/12/22 12:50 Nasal Secretion SARS-CoV-2 & FLU Antigen (Rapid) - Final D/C Instructions Discharge Diet: No restrictions Meaningful Use Info Meaningful Use Diagnoses (Choose all that apply): None applicable Discharge Plan Admission Admit Date/Time: 11/12/22 11:24 Primary Reason for Your Visit: COPD exacerbation. Attending Provider: Ean Chirinos Primary Care Provider: Nicci King Consulting Providers: Geoff Almaraz Discharge Orders/Prescriptions Prescriptions: New acetaminophen 325 mg Tablet 650 mg PO Q6H PRN PRN (Reason: Pain 1-10 Or Fever >100.7) Qty: 0 0RF ibuprofen 400 mg Tablet 400 mg PO Q8 PRN (Reason: Pain, Moderate) Qty: 0 0RF Deep Sea Nasal 0.65 % Aerosol,[place] 2 spray NASAL Q4H PRN PRN (Reason: NASAL DRYNESS) Qty: 0 0RF Continued buspirone 15 mg tablet 15 mg PO DAILY 30 Days Qty: 60 multivitamin 1 EACH tablet 1 tab PO DAILY atorvastatin 40 MG tablet 40 mg PO QHS isosorbide mononitrate 30 MG tablet 30 mg PO DAILY paroxetine HCl 37.5 MG tablet extended release 24 hr 37.5 mg PO DAILY omega-3 fatty acids 1,000 mg Capsule 1,000 mg PO DAILY aspirin 81 mg Tablet,Delayed Release (Dr/Ec) 81 mg PO DAILY ramipril 2.5 mg Capsule 2.5 mg PO DAILY bupropion HCl 75 mg Tablet 75 mg PO BID Vitamin C 100 mg Tablet 100 mg PO DAILY albuterol sulfate 90 mcg/actuation HFA aerosol inhaler 1 inh INHALATION Q4H PRN (Reason: SHORTNESS OF BREATH ) vitamin B complex Capsule 1 cap PO DAILY calcium carbonate-vitamin D3 500 mg-3.125 mcg (125 unit) Tablet 1 tab PO DAILY cholecalciferol (vitamin D3) 125 mcg (5,000 unit) Tablet 125 mcg PO DAILY roflumilast 500 mcg tablet 500 mcg PO DAILY acidophilus-pectin, citrus 100 million cell-10 mg Capsule 1 cap PO DAILY Trelegy Ellipta 100-62.5-25 mcg blister with device 1 inh INHALATION DAILY Azo Cranberry 250 mg Tablet,Chewable 250 mg PO DAILY Referrals / Follow Up: Nicci King DO [Primary Care Provider] - Within 2 Weeks Pedro Joy MD [Med Staff - Active Staff] - Within 1 Month Disposition Disposition (needs filled in before D/C Order can be placed): Home Health Service Charges/Coding Visit Charges Inpatient E&M: 98465 Disch Hosp
[2022-11-19 11:23] VITALS: O2SAT 91; O2SAT 93
[2022-11-19 14:00] VITALS: BP 104/64; PULSE 93; RESP 16; TEMP 36.9; O2SAT 95
== END 2022-11-19 16:59 | disposition home health service (06) ==
LOC: ED 10:29 → MS3 12:04
PROVIDERS: Admitting Provider Internal Medicine; Emergency Provider Emergency Medicine; PCP Internal Medicine
DX: J44.1 Chronic obstructive pulmonary disease with (acute) exacerbation (principal); J96.11 Chronic respiratory failure with hypoxia; I10 Essential (primary) hypertension; R13.12 Dysphagia, oropharyngeal phase; I25.10 Atherosclerotic heart disease of native coronary artery without angina pectoris; E78.00 Pure hypercholesterolemia, unspecified; W19.XXXD Unspecified fall, subsequent encounter; S22.42XD Multiple fractures of ribs, left side, subsequent encounter for fracture with routine healing; Z87.891 Personal history of nicotine dependence; Z79.82 Long term (current) use of aspirin; Z86.16 Personal history of COVID-19; Z79.899 Other long term (current) drug therapy; Z99.81 Dependence on supplemental oxygen; F41.9 Anxiety disorder, unspecified; F32.A Depression, unspecified
CPT/HCPCS: 36415; 71275; 76536; 80048; 83735; 84100; 84443; 85025; 87428; 87449; 92610; 93005; 94640; 94668; 96361; 96372; 96374; 96375; 96376; 97110; 97116; 97162; 97166; 97530; 97535; 99221; 99252; 99285; J7030; J7120; Q9967; A4216; G0378; G0463

== ENCOUNTER → 2023-03-13 | Outpatient (CLI) | payer MEDICARE, SELFPAY ==
--- NOTE | 2023-03-13 08:17 | CT_ITS ---
INDICATION: ABNORMAL LUNG FIELD FINDING, COPD EXAMINATION: CT CHEST WITHOUT CONTRAST - CT Chest W/O Contrast Injection TECHNIQUE: Helically acquired images were obtained of the chest. A radiation dose optimization technique was used for this scan. IV Contrast dosage and agent: None. COMPARISON: 11/12/2022 FINDINGS: LUNGS, PLEURA AND LARGE AIRWAYS: Severe emphysema. Mild bilateral apical scarring. No change in the linear nodular density in the periphery of the left upper lobe on image 34 consistent with a scar. Persistent atelectasis in the medial right middle lobe adjacent to the right heart border. There is no change in a 6 cm noncalcified nodule in the periphery of the left lower lobe lungs on image 71 dating back to 09/11/2020 consistent with a noncalcified granuloma. This requires no further follow-up. There is no change in the 2 small 4 mm noncalcified nodule posterior left lower lobe lung zone image 78 and follow-up CT is recommended in 12 months to document stability. No change in triangular density in the inferior azygos esophageal recess of the right lung which is a combination of thickening of the diaphragm and some atelectasis. No pleural effusion or thickening. No pneumothorax. THYROID: No thyroid lesions. HEART AND PERICARDIUM: Heart size is normal. No pericardial effusion. CORONARY ARTERIES: Coronary artery calcification is seen. VESSELS: Thoracic aorta is not dilated. MEDIASTINUM AND NICOLLE: No mediastinal or hilar adenopathy. Esophagus is unremarkable. No hiatal hernia. UPPER ABDOMEN: No acute pathology. BONES: Mild levoscoliosis of the thoracolumbar spine with degenerative disc disease. Multiple healed left rib fractures. CT/Chest without Contrast IMPRESSION: Severe emphysema with scarring atelectasis and nodules. Follow-up CT is recommended in 12 months to document stability 2 small nodules in the left lower lobe. Electronically Signed: Osmin Lind MD at 22:41 EDT ,
--- NOTE | 2023-03-13 08:17 | CT_ITS ---
STUDY: CT BRAIN WITHOUT CONTRAST REASON FOR EXAM: Female, 82 years old. Change in Mental Status RADIATION DOSAGE (If Supplied By Facility): CTDIvol = ( 44.99 ) mGy, DLP = ( 779.24 ) mGycm TECHNIQUE: Transaxial CT imaging of the brain was performed without administration of intravenous contrast material. Individualized dose optimization techniques were used for this CT. COMPARISON: 04/24/2021 FINDINGS: Normal soft tissue structures. Normal calvarium. There is mild cerebral atrophy with widening of the extra-axial spaces and ventricular dilatation. There are areas of decreased attenuation within the white matter tracts of the supratentorial brain, consistent with microvascular disease changes. Normal basal ganglia and thalami. Normal brainstem. Normal cerebellum. There is no intracranial hemorrhage. There are no findings of an acute ischemic infarction. Normal visualized paranasal sinuses. CT/Brain/Head without Contrast IMPRESSION: Chronic involutional changes of the brain. Electronically Signed: Osmin Lind MD at 22:21 EDT ,
== END | disposition home or self-care (01) ==
LOC: CT 08:13
PROVIDERS: PCP Internal Medicine; Referring Provider Internal Medicine; Visit Provider Internal Medicine
DX: R91.8 Other nonspecific abnormal finding of lung field (principal); J44.9 Chronic obstructive pulmonary disease, unspecified; R41.82 Altered mental status, unspecified
CPT/HCPCS: 70450; 71250

== ENCOUNTER 2023-03-14 14:47 | Inpatient (IN) | payer MEDICARE, OTHER, SELFPAY ==
[2023-03-14] VITALS (16 sets, daily range): BP systolic 91–130; BP diastolic 47–89; PULSE 77–96; RESP 14–20; TEMP 36.4–37; O2SAT 94–100; BMI 21.3; BMI 20.1
--- NOTE | 2023-03-14 15:09 | EKG12_ITS ---
Test Reason : GI BLEED Blood Pressure : / mmHG Vent. Rate : 087 BPM Atrial Rate : 087 BPM P-R Int : 132 ms QRS Dur : 088 ms QT Int : 396 ms P-R-T Axes : 080 071 054 degrees QTc Int : 476 ms Normal sinus rhythm Normal ECG Confirmed by ROSETTA VALERO, LEANA ([id number]), image editor ARIADNE GOLD ([id number]) on 03/16/2023 8:28:57 AM Referred By: Confirmed By:LEANA SARGENT MD
--- NOTE | 2023-03-14 15:11 | EDS_ITS ---
HPI HPI - GI History of Present Illness Chief Complaint: GI Bleed Informant: patient and family Narrative Narrative: Presents with daughter concerns of black stools with increasing weakness. COPD chronic 5 L oxygen on baby aspirin daily. Daughter reports 4 days ago she had a call patient was more fatigued she cannot find her oxygen and it was placed back on however she is having weakness. Yesterday noted black stools again today. S he has been using ibuprofen more frequently since her rib fracture in November of this year on the left side. Colonoscopies in the past none recently. No upper endoscopies. No abdominal pain. She blood loss anemia in 2020 from hip fracture, unclear if she was transfused at that time. Prior similar symptoms: No PFSH PFSH Medical History (Updated 03/14/23 @ 15:[address] Bryan Adams, ) Anxiety and depression Atherosclerotic heart disease of [place] coronary artery without angina pectoris Chronic respiratory failure with hypoxia Chronic respiratory failure with hypoxia, on home O2 therapy CKD (chronic kidney disease) Closed right hip fracture COPD (chronic obstructive pulmonary disease) COPD (chronic obstructive pulmonary disease) Depression Dyspnea on exertion Essential hypertension Former tobacco use Nonrheumatic mitral valve regurgitation Pure hypercholesterolemia Home Medications atorvastatin 40 mg tablet 40 mg PO QHS CHOLESTEROL 12/28/17 [History Last Taken 03/13/23] isosorbide mononitrate 30 mg tablet,extended release 24 hr 30 mg PO DAILY HEART/CHEST PAIN 12/28/17 [History Last Taken 03/14/23] multivitamin 1 tab PO DAILY SUPPLEMENT 12/28/17 [History Last Taken 03/14/23] paroxetine HCl 37.5 mg tablet,extended release 24 hr 37.5 mg PO DAILY MOOD 12/28/17 [History Last Taken 03/14/23] acidophilus 100 million cell-pectin, citrus 10 mg capsule 1 cap PO DAILY GUT HEALTH 11/12/22 [History Last Taken 03/14/23] albuterol sulfate 90 mcg/actuation aerosol inhaler 1 inh inhalation Q4H PRN SHORTNESS OF BREATH 11/12/22 [History Last Taken Unknown] ascorbic acid (vitamin C) 100 mg tablet (Vitamin C) 100 mg PO DAILY SUPPLEMENT 11/12/22 [History Last Taken 03/14/23] aspirin 81 mg tablet,delayed release 81 mg PO DAILY HEART HEALTH 11/12/22 [History Last Taken 03/14/23] calcium carbonate 500 mg-vitamin D3 3.125 mcg (125 unit) tablet 1 tab PO DAILY SUPPLEMENT 11/12/22 [History Last Taken 03/14/23] cholecalciferol (vitamin D3) 125 mcg (5,000 unit) tablet 125 mcg PO DAILY SUPPLEMENT 11/12/22 [History Last Taken 03/14/23] cranberry fruit concentrate 250 mg chewable tablet (Azo Cranberry) 250 mg PO DAILY UTI PREVENTION 11/12/22 [History Last Taken 03/14/23] fluticasone fur. 100 mcg-umeclid 62.5 mcg-vilant 25 mcg inhalat.powder (Trelegy Ellipta) 1 inh inhalation DAILY COPD 11/12/22 [History Last Taken 03/14/23] omega-3 fatty acids 1,000 mg capsule 1,000 mg PO DAILY SUPPLEMENT 11/12/22 [History Last Taken 03/14/23] ramipril 2.5 mg capsule 2.5 mg PO DAILY HEART 11/12/22 [History Last Taken 03/14/23] roflumilast 500 mcg tablet 500 mcg PO DAILY COPD 11/12/22 [History Last Taken 03/14/23] vitamin B complex 1 cap PO DAILY SUPPLEMENT 11/12/22 [History Last Taken 03/14/23] acetaminophen 325 mg tablet 650 mg (2 x 325 mg) PO Q6H PRN PRN Pain 1-10 Or Fever >100.7 #0 tabs 11/17/22 [Rx Last Taken Unknown] ibuprofen 400 mg tablet 400 mg PO Q8 PRN Pain, Moderate #0 tabs 11/17/22 [Rx Last Taken 03/13/23] guaifenesin 1,200 mg tablet, extended release 12 hr (Mucinex) 1,200 mg PO BID . 03/14/23 [History Last Taken 03/14/23] prednisone 20 mg tablet 20 mg PO ,. 03/14/23 [History Last Taken 03/14/23] Allergy/AdvReac Type Severity Reaction Status Date / Time cefaclor [From [facility]] Allergy Hives Verified 03/14/23 14:50 Family History Father Myocardial infarction, Onset Age: 43 Brother Myocardial infarction, Onset Age: 52 Brother CAD (coronary artery disease) Surgical History History of cholecystectomy Social History Smoking Status: Former smoker alcohol intake: never substance use type: does not use ROS ROS ED Constitutional Constitutional ED: Denies chills, fever(s) or sweats Eyes Eyes: Denies change in vision ENT ENT ED: Denies dysphagia or sore throat Cardiovascular Cardiovascular: Denies chest pain, leg edema, palpitations or racing heartbeat Respiratory/Chest Respiratory/Chest: Denies cough, dyspnea or dyspnea on exertion Gastrointestinal Gastrointestinal: Reports melena and other; Denies abdominal pain, diarrhea, nausea or vomiting Genitourinary Genitourinary ED: Denies dysuria, hematuria or urinary frequency Musculoskeletal Musculoskeletal: Denies back pain, extremity pain or neck pain Integumentary Denies rash or wounds Neurologic Neurologic: Reports weakness; Denies headache(s) or paresthesias EXAM Physical Exam Const Vital Signs: 03/14/23 14:48 03/14/23 15:01 03/14/23 15:23 Temperature 97.6 F L Temperature Source Temporal Pulse Rate 87 85 Pulse Rate [Lying] 83 Pulse Rate [Sitting (for 1 minute prior to obtaining)] 92 Pulse Rate [Standing (for 1 minute prior to obtaining)] 96 Respiratory Rate 18 18 Blood Pressure 91/47 L 117/57 L Blood Pressure [Lying] 101/47 L Blood Pressure [Sitting (for 1 minute prior to obtaining)] 109/78 Blood Pressure [Standing (for 1 minute prior to obtaining)] 106/57 L Blood Pressure Mean 61 77 Blood Pressure Mean [Lying] 65 Blood Pressure Mean [Sitting (for 1 minute prior to obtaining)] 88 Blood Pressure Mean [Standing (for 1 minute prior to obtaining)] 73 Pulse Ox 95 100 Oxygen Delivery Method Nasal Cannula Room Air Oxygen Flow Rate (L/min) 5 Positive well nourished and well developed General Appearance ED: well developed, NAD and pallor HEENT Reports moist mucous membranes normocephalic and atraumatic Eyes PERRL and EOMs intact bilaterally General Eye ED: Yes normal appearance of both eyes and pale conjunctiva Neck no lymphadenopathy and supple General: Negative for tenderness Chest Wall Chest: Negative for tenderness Resp normal respiratory effort and normal air movement Effort and Inspection: symmetric chest movement; Negative for respiratory distress Cardio regular rate, regular rhythm and no murmurs Peripheral Pulses: pulses 2+ throughout GI normal to inspection, nondistended, normoactive bowel sounds and non-tender GI Narrative: Examination no hemorrhoids digital exam with black stools, guaiac sent. Palpation: Negative for guarding or rebound tenderness present Back/Spine no CVA tenderness and no thoracic nor lumbar tenderness Extremity normal to inspection General Extremety ED: Negative for edema or tenderness General Extremity: Negative for edema Neuro oriented x3 and no sensory deficits noted Sensorium / Orientation: awake and alert Skin no rashes or lesions noted and no wounds General Skin Exam: pallor MDM MDM MDM Narrative Medical decision making narrative: Interventions / MDM: Differential diagnosis: Upper GI bleed, gastric ulcers, anemia Diagnosis considered but do not suspect: N/A My EKG interpretation: Sinus rate of 87, no ST or T wave changes. Imaging independently reviewed and interpreted by myself: N/A External documents reviewed: Diagnostic heart cath in 2019 minimal coronary disease ejection fraction of 65%. Test considered but not ordered:N/A ED course: Patient is a blood pressure 91/647 recheck 117/57. Pallor of the eyes and skin. Concern for symptomatic anemia causing weakness. Concern gastric ulcer with history of increasing NSAID use. Chronic 5 L oxygen stable with no respiratory distress. Labs were drawn including type and screen. IV Protonix will be ordered. Hemoglobin returned at 6.9 down from 11.34 months ago. Guaiac was positive. Orthostatics were negative by numbers have reported she was lightheaded with standing. Blood pressure remaining stable 100s to 110s. Blood consent 2 units of blood ordered. Reviewing records she was given blood transfusion in 2020. BUN 40 creatinine 0.94. 1605: I spoke with her GI doctor Dr. Forrester, updated on patient's history concerns and findings. We will start a Protonix drip. Will admit to hospital [facility]. Discussed with Dr. Sol for admission to PCU. Re-evaluation: stable Disposition discussed with patient/family/significant other: Patient and daughter Case discussed with consulting clinician: N/A This note was generated with [employer] dictation software. It may contain incorrect words, spelling, and punctuation that were not noted in checking the note before signing. Lab Data Attestation: I reviewed the patient's lab results. Labs: Laboratory Results - last 24 hr 03/14/23 15:03 WBC 11.1 H RBC 2.07 L Hgb 6.9 L Hct 21.8 L MCV 105.3 H MCH 33.3 H MCHC 31.7 L RDW Std Deviation 53.2 H RDW Coeff of Linette 14.1 Plt Count 224 MPV 11.4 Immature Gran % (Auto) 0.700 Neut % (Auto) 92.5 H Lymph % (Auto) 5.4 L [place] % (Auto) 1.1 Eos % (Auto) 0.1 Baso % (Auto) 0.2 Absolute Neuts (auto) 10.3 H Absolute Lymphs (auto) 0.60 L Nucleated RBC % 0 Differential Comment SCANNED PT 14.4 INR 1.1 APTT 25.3 Sodium 141 Potassium 3.5 Chloride 111 H Carbon Dioxide 26.0 Anion Gap 4 L BUN 40 H Creatinine 0.94 Estim Creat Clear Calc 33.62 Est GFR (MDRD) Af Amer 73 Est GFR (MDRD) Non-Af 60 BUN/Creatinine Ratio 42.4 H Glucose 145 H Calcium 8.7 Discharge Plan Triage Chief Complaint: GI Bleed ED Provider: Bryan Adams Dx/Rx/DC Orders Clinical Impression: History of COPD, Weakness, Symptomatic anemia, Acute upper GI bleed Prescriptions: No Action multivitamin 1 EACH tablet 1 tab PO DAILY atorvastatin 40 MG tablet 40 mg PO QHS isosorbide mononitrate 30 MG tablet 30 mg PO DAILY paroxetine HCl 37.5 MG tablet extended release 24 hr 37.5 mg PO DAILY omega-3 fatty acids 1,000 mg Capsule 1,000 mg PO DAILY aspirin 81 mg Tablet,Delayed Release (Dr/Ec) 81 mg PO DAILY ramipril 2.5 mg Capsule 2.5 mg PO DAILY Vitamin C 100 mg Tablet 100 mg PO DAILY albuterol sulfate 90 mcg/actuation HFA aerosol inhaler 1 inh INHALATION Q4H PRN (Reason: SHORTNESS OF BREATH ) vitamin B complex Capsule 1 cap PO DAILY calcium carbonate-vitamin D3 500 mg-3.125 mcg (125 unit) Tablet 1 tab PO DAILY cholecalciferol (vitamin D3) 125 mcg (5,000 unit) Tablet 125 mcg PO DAILY roflumilast 500 mcg tablet 500 mcg PO DAILY acidophilus-pectin, citrus 100 million cell-10 mg Capsule 1 cap PO DAILY Trelegy Ellipta 100-62.5-25 mcg blister with device 1 inh INHALATION DAILY Azo Cranberry 250 mg Tablet,Chewable 250 mg PO DAILY acetaminophen 325 mg Tablet 650 mg PO Q6H PRN PRN (Reason: Pain 1-10 Or Fever >100.7) Qty: 0 0RF ibuprofen 400 mg Tablet 400 mg PO Q8 PRN (Reason: Pain, Moderate) Qty: 0 0RF prednisone 20 mg tablet 20 mg PO Mucinex 1,200 mg tablet extended release 12hr 1,200 mg PO BID Primary Care Provider: Nicci King Referrals: Nicci King DO [Primary Care Provider] - Disposition Disposition: Acute Care Hospital [facility]
[2023-03-14 15:21] LABS: Absolute Neutrophil Count 10.3 X10^3/uL (2.0-7.7); Basophil# 0.02 X10^3/uL; Basophil% 0.2 % (0-1); Eosinophil# 0.01 X10^3/uL; Eosinophils% 0.1 % (0-5); Hematocrit 21.8 % (37-47); Hemoglobin 6.9 g/dL (12.0-15.0); Lymphocyte % 5.4 % (19-41); Mean Corp Hgb Conc 31.7 g/dL (32-36); Mean Corpuscular Hgb 33.3 pg (27.0-32.0); Mean Corpuscular Volume 105.3 fL (81-99); Mean Platelet Vol. 11.4 fl (6.2-12.0); Monocyte# 0.12 X10^3/uL; Monocyte% 1.1 % (0-10); NRBC Flagged by Analyzer 0 % (0-5); Neutrophil # 10.28 X10^3/uL (2.7-7.7); Neutrophil % 92.5 % (47-70); POSITIVE DIFFERENTIAL YES; Platelet Count 224 K/mm3 (150-450); RBC Distribution Width CV 14.1 % (11.6-14.6); RBC Distribution Width SD 53.2 fl (35.1-43.9); Red Blood Count 2.07 M/mm3 (4.2-5.4); White Blood Count 11.1 K/mm3 (4.4-11.0)
[2023-03-14 15:27] LABS: Differential Indicated SCAN CRITERIA MET
[2023-03-14] MEDS: 0.9% Normal Saline 1,000 ML 100 ML IV ×3 (15:29→18:27)
[2023-03-14 15:31] LABS: International Normalized Ratio 1.1; Prothrombin Time (Protime)PT. 14.4 SECONDS (11.7-14.9)
[2023-03-14 15:32] LABS: Partial Thromboplast Time 25.3 Seconds (24.1-36.2)
[2023-03-14 15:35] LABS: Anion Gap 4 (5-15); BUN 40 mg/dL (7-18); BUN/Creat Ratio 42.4 RATIO (10-20); Calcium,Total 8.7 mg/dL (8.5-10.1); Chloride 111 mmol/L (98-107); Creatinine, Serum 0.94 mg/dL (0.55-1.02); EST Glomerular Filtration Rate 60 mL/min (>60); Est Glom Filt Rate - Afr Amer 73 mL/min (>60); Estimated Creatinine Clearance 33.62 ml/min; Glucose 145 mg/dL (74-106); Potassium 3.5 mmol/L (3.5-5.1); Sodium Level 141 mmol/L (136-145)
[2023-03-14 15:44] LABS: Differential Comment SCANNED
--- NOTE | 2023-03-14 16:21 | ED.RN ---
protonix bolus just came up from pharmacy at [facility]
--- NOTE | 2023-03-14 17:45 | PCM.HP.STD ---
HPI - General General Date of Admission: 03/14/23 Date of Service: 03/14/23 HPI Narrative ZAHIDA FRYE, is a 82 F who presents to the emergency room at [facility] with complaints of black tarry stools x24 hours. Patient states that she has been taking ibuprofen for rib pain at home. Patient's chronic medical problems include chronic hypoxic respiratory failure-she is on 5 L of oxygen, she has been on oxygen for many years due to COPD. Patient denies any bright red rectal bleeding, she denies any stomach pain. Work-up in the emergency room included a CBC which showed a slightly elevated white count at 11.1, hemoglobin was 6.9, BUN was elevated at 40. Patient was typed and crossed for 2 units of packed red blood cells and these were ordered to be transfused. Patient will be admitted to PCU for acute upper GI bleed, repeat H&H will be performed tonwillie, I have elected to type and cross her for 1 more unit of packed red blood cells and hold it. Patient will be placed on a Protonix drip, IV fluids will be administered. FOR[facility]LY [facility] Medical History (Updated 03/14/23 @ 15:[address] Bryan Adams, ) Anxiety and depression Atherosclerotic heart disease of [place] coronary artery without angina pectoris Chronic respiratory failure with hypoxia Chronic respiratory failure with hypoxia, on home O2 therapy CKD (chronic kidney disease) Closed right hip fracture COPD (chronic obstructive pulmonary disease) COPD (chronic obstructive pulmonary disease) Depression Dyspnea on exertion Essential hypertension Former tobacco use Nonrheumatic mitral valve regurgitation Pure hypercholesterolemia Home Medications atorvastatin 40 mg tablet 40 mg PO QHS CHOLESTEROL 12/28/17 [History Last Taken 03/13/23] isosorbide mononitrate 30 mg tablet,extended release 24 hr 30 mg PO DAILY HEART/CHEST PAIN 12/28/17 [History Last Taken 03/14/23] multivitamin 1 tab PO DAILY SUPPLEMENT 12/28/17 [History Last Taken 03/14/23] paroxetine HCl 37.5 mg tablet,extended release 24 hr 37.5 mg PO DAILY MOOD 12/28/17 [History Last Taken 03/14/23] acidophilus 100 million cell-pectin, citrus 10 mg capsule 1 cap PO DAILY GUT HEALTH 11/12/22 [History Last Taken 03/14/23] albuterol sulfate 90 mcg/actuation aerosol inhaler 1 inh inhalation Q4H PRN SHORTNESS OF BREATH 11/12/22 [History Last Taken Unknown] ascorbic acid (vitamin C) 100 mg tablet (Vitamin C) 100 mg PO DAILY SUPPLEMENT 11/12/22 [History Last Taken 03/14/23] aspirin 81 mg tablet,delayed release 81 mg PO DAILY HEART HEALTH 11/12/22 [History Last Taken 03/14/23] calcium carbonate 500 mg-vitamin D3 3.125 mcg (125 unit) tablet 1 tab PO DAILY SUPPLEMENT 11/12/22 [History Last Taken 03/14/23] cholecalciferol (vitamin D3) 125 mcg (5,000 unit) tablet 125 mcg PO DAILY SUPPLEMENT 11/12/22 [History Last Taken 03/14/23] cranberry fruit concentrate 250 mg chewable tablet (Azo Cranberry) 250 mg PO DAILY UTI PREVENTION 11/12/22 [History Last Taken 03/14/23] fluticasone fur. 100 mcg-umeclid 62.5 mcg-vilant 25 mcg inhalat.powder (Trelegy Ellipta) 1 inh inhalation DAILY COPD 11/12/22 [History Last Taken 03/14/23] omega-3 fatty acids 1,000 mg capsule 1,000 mg PO DAILY SUPPLEMENT 11/12/22 [History Last Taken 03/14/23] ramipril 2.5 mg capsule 2.5 mg PO DAILY HEART 11/12/22 [History Last Taken 03/14/23] roflumilast 500 mcg tablet 500 mcg PO DAILY COPD 11/12/22 [History Last Taken 03/14/23] vitamin B complex 1 cap PO DAILY SUPPLEMENT 11/12/22 [History Last Taken 03/14/23] acetaminophen 325 mg tablet 650 mg (2 x 325 mg) PO Q6H PRN PRN Pain 1-10 Or Fever >100.7 #0 tabs 11/17/22 [Rx Last Taken Unknown] ibuprofen 400 mg tablet 400 mg PO Q8 PRN Pain, Moderate #0 tabs 11/17/22 [Rx Last Taken 03/13/23] guaifenesin 1,200 mg tablet, extended release 12 hr (Mucinex) 1,200 mg PO BID . 03/14/23 [History Last Taken 03/14/23] prednisone 20 mg tablet 20 mg PO ,. 03/14/23 [History Last Taken 03/14/23] Allergy/AdvReac Type Severity Reaction Status Date / Time cefaclor [From [facility]] Allergy Hives Verified 03/14/23 14:50 Family History Father Myocardial infarction, Onset Age: 43 Brother Myocardial infarction, Onset Age: 52 Brother CAD (coronary artery disease) Surgical History History of cholecystectomy Social History Smoking Status: Former smoker alcohol intake: never substance use type: does not use ROS Constitutional Constitutional: Denies anorexia, change in weight, chills, fatigue, fever(s), malaise, night sweats or weakness Eyes Eyes: Denies blurry vision, change in vision, discharge from eye(s) or eye pain Cardiovascular Cardiovascular: Denies chest pain, claudication, dyspnea on exertion, edema, lightheadedness or palpitations Respiratory/Chest Respiratory/Chest: Denies cough, hemoptysis, productive cough, shortness of breath at rest or shortness of breath with exertion Gastrointestinal Gastrointestinal: Reports melena; Denies abdominal pain, coffee ground emesis, constipation, diarrhea, dyspepsia, hematemesis, hematochezia, nausea or vomiting Genitourinary Genitourinary: Denies difficulty urinating, dysuria, hematuria, nocturia, urinary frequency, urinary hesitancy, urinary incontinence or urinary urgency Musculoskeletal Musculoskeletal: Denies back pain, joint pain, joint stiffness, joint swelling, myalgias or neck pain Neurologic Neurologic: Denies abnormal gait, abnormal speech, confusion, disequilibrium, dizziness, focal weakness, headache(s), loss of vision, numbness, other visual disturbances, paresthesias, syncope or tingling Psychiatric Psychiatric: Denies anxiety, cognitive impairment, depression, irritability, mood swings or suicidal ideation Endocrine Endocrinology: Denies change in body appearance, cold intolerance, excessive sweating, heat intolerance, polydipsia or polyuria Hematologic/Lymphatic Hematologic/Lymphatic: Denies none, anemia, easy bleeding, easy bruising or lymphadenopathy Allergic/Immunologic Allergic/Immunologic: Denies rhinitis, urticaria, eczemia or asthma Vital Signs Vital Signs Vital Signs: 03/14/23 14:48 03/14/23 15:01 03/14/23 15:23 Temperature 97.6 F L Temperature Source Temporal Pulse Rate 87 85 Pulse Rate [Lying] 83 Pulse Rate [Sitting (for 1 minute prior to obtaining)] 92 Pulse Rate [Standing (for 1 minute prior to obtaining)] 96 Respiratory Rate 18 18 Blood Pressure 91/47 L 117/57 L Blood Pressure [Lying] 101/47 L Blood Pressure [Sitting (for 1 minute prior to obtaining)] 109/78 Blood Pressure [Standing (for 1 minute prior to obtaining)] 106/57 L Blood Pressure Mean 61 77 Blood Pressure Mean [Lying] 65 Blood Pressure Mean [Sitting (for 1 minute prior to obtaining)] 88 Blood Pressure Mean [Standing (for 1 minute prior to obtaining)] 73 Blood Pressure Source Blood Pressure Position Blood Pressure Location Pulse Ox 95 100 Oxygen Delivery Method Nasal Cannula Room Air Oxygen Flow Rate (L/min) 5 03/14/23 16:16 03/14/23 16:40 03/14/23 16:47 Temperature 98.0 F 98.6 F Temperature Source Oral Oral Pulse Rate 79 82 80 Pulse Rate [Lying] Pulse Rate [Sitting (for 1 minute prior to obtaining)] Pulse Rate [Standing (for 1 minute prior to obtaining)] Respiratory Rate 14 18 20 H Blood Pressure 117/56 L 116/65 123/65 H Blood Pressure [Lying] Blood Pressure [Sitting (for 1 minute prior to obtaining)] Blood Pressure [Standing (for 1 minute prior to obtaining)] Blood Pressure Mean 76 82 84 Blood Pressure Mean [Lying] Blood Pressure Mean [Sitting (for 1 minute prior to obtaining)] Blood Pressure Mean [Standing (for 1 minute prior to obtaining)] Blood Pressure Source Monitor Monitor Blood Pressure Position Semi-Fowlers Semi-Fowlers Blood Pressure Location Right Arm Right Arm Pulse Ox 100 98 100 Oxygen Delivery Method Room Air Nasal Cannula Nasal Cannula Oxygen Flow Rate (L/min) 5 5 03/14/23 17:03 03/14/23 17:27 Temperature 98.6 F Temperature Source Oral Pulse Rate 83 82 Pulse Rate [Lying] Pulse Rate [Sitting (for 1 minute prior to obtaining)] Pulse Rate [Standing (for 1 minute prior to obtaining)] Respiratory Rate 18 18 Blood Pressure 123/65 H 126/89 H Blood Pressure [Lying] Blood Pressure [Sitting (for 1 minute prior to obtaining)] Blood Pressure [Standing (for 1 minute prior to obtaining)] Blood Pressure Mean 84 101 Blood Pressure Mean [Lying] Blood Pressure Mean [Sitting (for 1 minute prior to obtaining)] Blood Pressure Mean [Standing (for 1 minute prior to obtaining)] Blood Pressure Source Blood Pressure Position Blood Pressure Location Pulse Ox 98 100 Oxygen Delivery Method Room Air Nasal Cannula Oxygen Flow Rate (L/min) 5 5 Weight Weight: 51.2 kg Body Mass Index (BMI) 21.3 Physical Exam Const alert, oriented x3 and no apparent distress Constitutional Narrative: Patient appears her stated age, she does not appear in any distress General Appearance: cooperative, well kempt and well developed Orientation / Consciousness: awake, oriented to person, oriented to place and oriented to time HEENT normocephalic, head/scalp atraumatic, hearing grossly normal bilaterally and moist oral mucous membranes Eyes PERRL, EOMs intact bilaterally and conjunctivae normal Neck supple, no JVD, thyroid normal and no carotid bruits General: trachea midline Resp normal respiratory effort, no retractions and no use of accessory muscles Resp Narrative: Breath sounds are distant bilaterally Auscultation: Negative for rales, rhonchi or wheezes Cardio regular rate, regular rhythm, S1 normal heart sound, S2 normal heart sound, no murmurs, no rub and no gallops GI normal to inspection, nondistended, normoactive bowel sounds, soft to palpation, non-tender and non-distended Extremity no clubbing, cyanosis or edema Skin no rashes or lesions noted General Skin Exam: no breakdown Neuro oriented x3, CN's II-XII intact bilaterally, moves all extremities, no focal motor deficits and no sensory deficits noted Sensorium / Orientation: awake and alert Speech: speech normal Psych affect normal Results Lab / Micro Data 03/14/23 15:03 03/14/23 15:03 Labs: Laboratory Results - last 24 hr 03/14/23 15:03: WBC 11.1 H, RBC 2.07 L, Hgb 6.9 L, Hct 21.8 L, MCV 105.3 H, MCH 33.3 H, MCHC 31.7 L, RDW Std Deviation 53.2 H, RDW Coeff of Linette 14.1, Plt Count 224, MPV 11.4, Immature Gran % (Auto) 0.700, Neut % (Auto) 92.5 H, Lymph % (Auto) 5.4 L, [place] % (Auto) 1.1, Eos % (Auto) 0.1, Baso % (Auto) 0.2, Absolute Neuts (auto) 10.3 H, Absolute Lymphs (auto) 0.60 L, Nucleated RBC % 0, Differential Comment SCANNED, PT 14.4, INR 1.1, APTT 25.3, Sodium 141, Potassium 3.5, Chloride 111 H, Carbon Dioxide 26.0, Anion Gap 4 L, BUN 40 H, Creatinine 0.94, Estim Creat Clear Calc 33.62, Est GFR (MDRD) Af Amer 73, Est GFR (MDRD) Non-Af 60, BUN/Creatinine Ratio 42.4 H, Glucose 145 H, Calcium 8.7, Blood Type B POSITIVE, Antibody Screen NEGATIVE, Crossmatch See Detail 03/14/23 15:03: Crossmatch See Detail Micro: Microbiology 03/14/23 15:05 Stool Stool Occult Blood (CAIT) - Final Occult Blood Positive Assessment & Plan Assessment/Plan (1) Acute upper GI bleed: PLAN: Plan 1. Acute upper GI bleed-most probably secondary to nonsteroidal anti-inflammatory use, patient will be admitted to PCU, IV fluids will be administered, she will be given 2 units of packed red blood cells initially, repeat H&H will be performed later today. Patient is on Protonix drip, gastroenterology will consult and perform an EGD tomorrow. #2 chronic hypoxic respiratory failure-patient is on 5 L of oxygen, pulse ox will be monitored #3 chronic obstructive pulmonary disease-patient will be given aerosol treatments #4 acute blood loss anemia-secondary to upper GI bleed, again blood count will be monitored, patient will receive packed red blood cells #5 hyperlipidemia-patient's atorvastatin will be held due to her n.p.o. status except for central medications #6 mild atherosclerotic heart disease-stable at this time Total clinical time spent by myself addressing the patient's medical issues, reviewing all of her data, and collaborating with patient's care team: 55 minutes Charges/Coding Visit Charges Inpatient E&M: 62200 Init Hosp L2
[2023-03-14] MEDS: Budesonide Respules 0.5 MG/2 ML AMPUL.NEB. INHALATION (20:23)
[2023-03-14] MEDS: Ipratropium/Albuterol Sulfate 3 ML AMPUL.NEB INHALATION (20:23)
[2023-03-14 23:57] LABS: Hematocrit 26.1 % (37-47); Hemoglobin 8.5 g/dL (12.0-15.0)
[2023-03-15] VITALS (14 sets, daily range): BP systolic 115–168; BP diastolic 62–98; PULSE 80–97; RESP 16–24; TEMP 36.1–37; O2SAT 89–99
--- NOTE | 2023-03-15 | IMM_PTH ---
PATIENT: ZAHIDA FRYE LOC: [facility] U#:[id number] AGE/SX: 82/F ROOM: [facility] RE03/14/[address]: Dr. Rakesh Sol DO : 1940 BED: 1 DIS: 03/15/2023 SPEC #: [id number] RECD: 03/18/23 06:46 STATUS: BABAK REQ #: [id number] RANDY: 03/15/23 00:[address]: Lm Forrester DEPT: IMMUNOHISTOCHEMISTRY RECD BY: Aminta Brunson ENTERED: 03/18/23 06:48 SP TYPE: IMMUNO OTHR DR: Dr. Nicci King, DO Dr. Rakesh Sol DO Tissues: Esophagus, NOS Procedures: CK20 (add) CK7 (add) CK8 (add) KI-67 (add) P53 (add) HER-2-ISI (initial) Comments: @ Ordering doctor for HER2 edited from to @ by CALEB at 03/18/23 1338 @ Ordering doctor for CK20. edited from to @ by CALEB at 03/18/23 1338 @ Ordering doctor for CK7. edited from to @ by CALEB at 03/18/23 1338 @ Ordering doctor for CK8. edited from to @ by CALEB at 03/18/23 1338 @ Ordering doctor for KI67. edited from to @ by CALEB at 03/18/23 1338 @ Ordering doctor for P53. edited from to @ by CALEB at 03/18/23 1338 @ Submitting doctor edited from to @ by CALEB at 03/18/23 1338 PHYSICIAN & INSTITUTION [place] [id number] SPECIMEN INFORMATION: Tissue Source: Distal esophagus mass Clinical Info: Acute upper GI bleed Specimen Number: [id number] CPT code: 05190, 20862 x5 METHODOLOGY: Deparaffinized sections of prefer/formalin-fixed tissue or PAP/DQ stained slides are incubated with monoclonal/polyclonal antibodies/oligonucleotide probes. Localization is made via biotin free immunoperoxidase method. Appropriate controls are performed and reacted as expected. Results on target cell population are indicated in the following table: RESULTS: ANTIBODY / CLONE RESULT Her-2neu (CB11) negative (0) CK7 (OV-TL12/30) positive CK8 (54dbspZ00) positive CK20 (KS20.8) positive, focal P53 (DO-7) positive, missense mutation pattern Ki-67 (30-9) positive, high These tests were developed and their performance characteristics determined by [facility]. They may not have been cleared or approved by the U.S. Food and Drug Administration. The FDA has determined that such clearance or approval is not necessary. The above immunohistochemical/dualISH markers are ordered and reviewed by the Pathologist. 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 Case has been reviewed in consultation with Dr. Bojorquez who concurs with the above diagnosis. IDC:[email or web address] SJ:isauro 03/18/23
--- NOTE | 2023-03-15 | ESO_PTH ---
PATIENT: ZAHIDA FRYE LOC: [facility] U#:[id number] AGE/SX: 82/F ROOM: [facility] RE03/14/[address]: Dr. Rakesh Sol DO : 1940 BED: 1 DIS: 03/15/2023 SPEC #: [id number] RECD: 03/15/23 14:59 STATUS: BABAK REQ #: [id number] RANDY: 03/15/23 00:[address]: Ra Usamahsaan DEPT: SURGICAL PATHOLOGY RECD BY: Clarke Bernard ENTERED: 03/16/23 08:42 SP TYPE: ESOPH BX OTHR DR: DO Dr. Rakesh Rob DO Tissues: Esophagus, NOS Procedures: Special Stain Group II Surgery Specimen Level IV Alcian Blue/PAS (control) Comments: @ Ordering doctor for SUIV edited from to @ oralia ELLIS at 03/18/23 1902 @ Submitting doctor edited from to @ oralia ELLIS at 03/18/23 [id number] HEADER OPERATION: EGD, Electrohemostasis biopsy PRE-OP DIAGNOSIS: Acute upper GI bleed TISSUE SUBMITTED: Distal esophagus mass MICROSCOPIC DIAGNOSIS Distal esophagus mass, biopsy: A minute focus of well differentiated invasive adenocarcinoma arising in the background of high-grade dysplasia. Focal intestinal metaplasia (goblet cell metaplasia) noted. COMMENT Alcian blue/PAS stain with matched control is used in the evaluation of the specimen. Immunohistochemistry ([id number]) supports the above diagnosis. This case is discussed with Dr. Rocha on 03/18/2023. Correlation with clinical, endoscopic findings and appropriate follow up are necessary. Case has been reviewed in consultation with Dr. Bojorquez who concurs with the above diagnosis. IDC:AM MICROSCOPIC DESCRIPTION Slides are reviewed. GROSS DESCRIPTION Received is one container labeled with the patient name and designated distal esophageal mass. The specimen consists of multiple irregular fragments of light guzmán soft tissue that in aggregate measure 0.7 x 0.3 x 0.1 cm. The specimen is totally submitted in one cassette. / [SJ: 03/16/2023 TC:0 CPT:59224, 61728
--- NOTE | 2023-03-15 05:55 | EKG12_ITS ---
Test Reason : AM EKG Blood Pressure : / mmHG Vent. Rate : 083 BPM Atrial Rate : 083 BPM P-R Int : 138 ms QRS Dur : 086 ms QT Int : 378 ms P-R-T Axes : 079 074 058 degrees QTc Int : 444 ms Normal sinus rhythm Normal ECG When compared with ECG of 14-MAR-2023 15:13, MANUAL COMPARISON REQUIRED, DATA IS UNCONFIRMED Confirmed by ROSETTA VALERO, LEANA ([id number]), news copy editor ARIADNE GOLD ([id number]) on 03/16/2023 12:21:21 PM Referred By: Confirmed By:LEANA SARGENT MD
[2023-03-15] MEDS: 0.9% Normal Saline 1,000 ML 100 ML IV (06:14)
[2023-03-15 06:30] LABS: Absolute Lymphocyte Count 1.94 X10^3/uL (0.83-4.51); Absolute Neutrophil Count 6.6 X10^3/uL (2.0-7.7); Basophil# 0.06 X10^3/uL; Basophil% 0.6 % (0-1); Eosinophil# 0.16 X10^3/uL; Eosinophils% 1.7 % (0-5); Hematocrit 27.9 % (37-47); Hemoglobin 9.1 g/dL (12.0-15.0); Lymphocyte # 1.94 X10^3/ul (0.83-4.51); Lymphocyte % 20.4 % (19-41); Mean Corp Hgb Conc 32.6 g/dL (32-36); Mean Corpuscular Hgb 31.4 pg (27.0-32.0); Mean Corpuscular Volume 96.2 fL (81-99); Mean Platelet Vol. 11.3 fl (6.2-12.0); Monocyte# 0.72 X10^3/uL; Monocyte% 7.6 % (0-10); NRBC Flagged by Analyzer 0 % (0-5); Neutrophil # 6.62 X10^3/uL (2.7-7.7); Neutrophil % 69.4 % (47-70); Platelet Count 181 K/mm3 (150-450); RBC Distribution Width CV 18.2 % (11.6-14.6); RBC Distribution Width SD 63.3 fl (35.1-43.9); White Blood Count 9.5 K/mm3 (4.4-11.0)
[2023-03-15 06:35] LABS: International Normalized Ratio 1.1
[2023-03-15 06:36] LABS: Partial Thromboplast Time 26.3 Seconds (24.1-36.2)
[2023-03-15 07:00] LABS: Anion Gap 4 (5-15); BUN 26 mg/dL (7-18); BUN/Creat Ratio 35.9 RATIO (10-20); Chloride 117 mmol/L (98-107); Creatinine, Serum 0.72 mg/dL (0.55-1.02); EST Glomerular Filtration Rate 81 mL/min (>60); Est Glom Filt Rate - Afr Amer 99 mL/min (>60); Glucose 90 mg/dL (74-106); Potassium 3.3 mmol/L (3.5-5.1); Sodium Level 144 mmol/L (136-145)
--- NOTE | 2023-03-15 07:24 | EKG12_ITS ---
Test Reason : CP Blood Pressure : / mmHG Vent. Rate : 087 BPM Atrial Rate : 087 BPM P-R Int : 144 ms QRS Dur : 080 ms QT Int : 374 ms P-R-T Axes : 086 079 065 degrees QTc Int : 450 ms Normal sinus rhythm Nonspecific ST abnormality Abnormal ECG When compared with ECG of 15-MAR-2023 05:17, MANUAL COMPARISON REQUIRED, DATA IS UNCONFIRMED Confirmed by ROSETTA VALERO, LEANA ([id number]), newspaper or periodical editor ARIADNE GOLD ([id number]) on 03/16/2023 12:20:19 PM Referred By: Confirmed By:LEANA SARGENT MD
[2023-03-15] MEDS: Budesonide Respules 0.5 MG/2 ML AMPUL.NEB. INHALATION ×2 (07:35→19:28)
[2023-03-15] MEDS: Ipratropium/Albuterol Sulfate 3 ML AMPUL.NEB INHALATION ×3 (07:35→19:28)
[2023-03-15] MEDS: Ramipril 2.5 MG Capsule PO (09:04)
--- NOTE | 2023-03-15 11:27 | NURSING ---
Patient left unit for EGD
--- NOTE | 2023-03-15 12:24 | EX.PCM.CON.G ---
HPI Consult Data Date of Consult: 03/15/23 HPI Narrative Reason for Consultation: GI bleed HPI Narrative: ZAHIDA FRYE, is a 82 F who presents to the ED with daughter concerns of black stools with increasing weakness. COPD chronic 5 L oxygen on baby aspirin daily. Daughter reports 4 days ago she had a call patient was more fatigued she cannot find her oxygen and it was placed back on however she is having weakness. Yesterday noted black stools again today. She has been using ibuprofen more frequently since her rib fracture in November of this year on the left side. Colonoscopies in the past none recently. No upper endoscopies. No abdominal pain. She blood loss anemia in 2020 from hip fracture, unclear if she was transfused at that time. Her work-up in the emergency room included a CBC which showed a slightly elevated white count at 11.1, hemoglobin was 6.9, BUN was elevated at 40. Patient was typed and crossed for 2 units of packed red blood cells and these were ordered to be transfused. Patient will be admitted to PCU for acute upper GI bleed, repeat H&H will be performed jenn I have elected to type and cross her for 1 more unit of packed red blood cells and hold it. Patient will be placed on a Protonix drip, IV fluids will be administered. [facility] Medical History (Updated 03/14/23 @ 15:[address] Bryan Adams DO) Anxiety and depression Atherosclerotic heart disease of [place] coronary artery without angina pectoris Chronic respiratory failure with hypoxia Chronic respiratory failure with hypoxia, on home O2 therapy CKD (chronic kidney disease) Closed right hip fracture COPD (chronic obstructive pulmonary disease) COPD (chronic obstructive pulmonary disease) Depression Dyspnea on exertion Essential hypertension Former tobacco use Nonrheumatic mitral valve regurgitation Pure hypercholesterolemia Home Medications atorvastatin 40 mg tablet 40 mg PO QHS CHOLESTEROL 12/28/17 [History Last Taken 03/13/23] isosorbide mononitrate 30 mg tablet,extended release 24 hr 30 mg PO DAILY HEART/CHEST PAIN 12/28/17 [History Last Taken 03/14/23] multivitamin 1 tab PO DAILY SUPPLEMENT 12/28/17 [History Last Taken 03/14/23] paroxetine HCl 37.5 mg tablet,extended release 24 hr 37.5 mg PO DAILY MOOD 12/28/17 [History Last Taken 03/14/23] acidophilus 100 million cell-pectin, citrus 10 mg capsule 1 cap PO DAILY GUT HEALTH 11/12/22 [History Last Taken 03/14/23] albuterol sulfate 90 mcg/actuation aerosol inhaler 1 inh inhalation Q4H PRN SHORTNESS OF BREATH 11/12/22 [History Last Taken Unknown] ascorbic acid (vitamin C) 100 mg tablet (Vitamin C) 100 mg PO DAILY SUPPLEMENT 11/12/22 [History Last Taken 03/14/23] aspirin 81 mg tablet,delayed release 81 mg PO DAILY HEART HEALTH 11/12/22 [History Last Taken 03/14/23] calcium carbonate 500 mg-vitamin D3 3.125 mcg (125 unit) tablet 1 tab PO DAILY SUPPLEMENT 11/12/22 [History Last Taken 03/14/23] cholecalciferol (vitamin D3) 125 mcg (5,000 unit) tablet 125 mcg PO DAILY SUPPLEMENT 11/12/22 [History Last Taken 03/14/23] cranberry fruit concentrate 250 mg chewable tablet (Azo Cranberry) 250 mg PO DAILY UTI PREVENTION 11/12/22 [History Last Taken 03/14/23] fluticasone fur. 100 mcg-umeclid 62.5 mcg-vilant 25 mcg inhalat.powder (Trelegy Ellipta) 1 inh inhalation DAILY COPD 11/12/22 [History Last Taken 03/14/23] omega-3 fatty acids 1,000 mg capsule 1,000 mg PO DAILY SUPPLEMENT 11/12/22 [History Last Taken 03/14/23] ramipril 2.5 mg capsule 2.5 mg PO DAILY HEART 11/12/22 [History Last Taken 03/14/23] roflumilast 500 mcg tablet 500 mcg PO DAILY COPD 11/12/22 [History Last Taken 03/14/23] vitamin B complex 1 cap PO DAILY SUPPLEMENT 11/12/22 [History Last Taken 03/14/23] acetaminophen 325 mg tablet 650 mg (2 x 325 mg) PO Q6H PRN PRN Pain 1-10 Or Fever >100.7 #0 tabs 11/17/22 [Rx Last Taken Unknown] ibuprofen 400 mg tablet 400 mg PO Q8 PRN Pain, Moderate #0 tabs 11/17/22 [Rx Last Taken 03/13/23] guaifenesin 1,200 mg tablet, extended release 12 hr (Mucinex) 1,200 mg PO BID . 03/14/23 [History Last Taken 03/14/23] prednisone 20 mg tablet 20 mg PO ,. 03/14/23 [History Last Taken 03/14/23] Allergy/AdvReac Type Severity Reaction Status Date / Time cefaclor [From [facility]] Allergy Hives Verified 03/14/23 14:50 Family History Father Myocardial infarction, Onset Age: 43 Brother Myocardial infarction, Onset Age: 52 Brother CAD (coronary artery disease) Surgical History History of cholecystectomy Social History Smoking Status: Former smoker alcohol intake: never substance use type: does not use ROS Constitutional Constitutional: Denies anorexia, change in weight, chills, fatigue, fever(s), malaise, night sweats or weakness Eyes Eyes: Denies blurry vision, change in vision, discharge from eye(s) or eye pain Cardiovascular Cardiovascular: Denies chest pain, claudication, dyspnea on exertion, edema, lightheadedness or palpitations Respiratory/Chest Respiratory/Chest: Denies cough, hemoptysis, productive cough, shortness of breath at rest or shortness of breath with exertion Gastrointestinal Gastrointestinal: Reports melena; Denies abdominal pain, coffee ground emesis, constipation, diarrhea, dyspepsia, hematemesis, hematochezia, nausea or vomiting Genitourinary Genitourinary: Denies difficulty urinating, dysuria, hematuria, nocturia, urinary frequency, urinary hesitancy, urinary incontinence or urinary urgency Musculoskeletal Musculoskeletal: Denies back pain, joint pain, joint stiffness, joint swelling, myalgias or neck pain Neurologic Neurologic: Denies abnormal gait, abnormal speech, confusion, disequilibrium, dizziness, focal weakness, headache(s), loss of vision, numbness, other visual disturbances, paresthesias, syncope or tingling Psychiatric Psychiatric: Denies anxiety, cognitive impairment, depression, irritability, mood swings or suicidal ideation Endocrine Endocrinology: Denies change in body appearance, cold intolerance, excessive sweating, heat intolerance, polydipsia or polyuria Hematologic/Lymphatic Hematologic/Lymphatic: Denies none, anemia, easy bleeding, easy bruising or lymphadenopathy Allergic/Immunologic Allergic/Immunologic: Denies rhinitis, urticaria, eczemia or asthma Physical Exam Const alert, oriented x3 and no apparent distress Constitutional Narrative: Patient appears her stated age, she does not appear in any distress General Appearance: cooperative, well kempt and well developed Orientation / Consciousness: awake, oriented to person, oriented to place and oriented to time HEENT normocephalic, head/scalp atraumatic, hearing grossly normal bilaterally and moist oral mucous membranes Eyes PERRL, EOMs intact bilaterally and conjunctivae normal Neck supple, no JVD, thyroid normal and no carotid bruits General: trachea midline Resp normal respiratory effort, no retractions and no use of accessory muscles Resp Narrative: Breath sounds are distant bilaterally Auscultation: Negative for rales, rhonchi or wheezes Cardio regular rate, regular rhythm, S1 normal heart sound, S2 normal heart sound, no murmurs, no rub and no gallops GI normal to inspection, nondistended, normoactive bowel sounds, soft to palpation, non-tender and non-distended Extremity no clubbing, cyanosis or edema Skin no rashes or lesions noted General Skin Exam: no breakdown Neuro oriented x3, CN's II-XII intact bilaterally, moves all extremities, no focal motor deficits and no sensory deficits noted Sensorium / Orientation: awake and alert Speech: speech normal Psych affect normal Lab / Micro Data 03/15/23 06:00 03/15/23 06:00 Labs: Laboratory Results - last 24 hr 03/14/23 15:03: WBC 11.1 H, RBC 2.07 L, Hgb 6.9 L, Hct 21.8 L, MCV 105.3 H, MCH 33.3 H, MCHC 31.7 L, RDW Std Deviation 53.2 H, RDW Coeff of Linette 14.1, Plt Count 224, MPV 11.4, Immature Gran % (Auto) 0.700, Neut % (Auto) 92.5 H, Lymph % (Auto) 5.4 L, [place] % (Auto) 1.1, Eos % (Auto) 0.1, Baso % (Auto) 0.2, Absolute Neuts (auto) 10.3 H, Absolute Lymphs (auto) 0.60 L, Nucleated RBC % 0, Differential Comment SCANNED, PT 14.4, INR 1.1, APTT 25.3, Sodium 141, Potassium 3.5, Chloride 111 H, Carbon Dioxide 26.0, Anion Gap 4 L, BUN 40 H, Creatinine 0.94, Estim Creat Clear Calc 33.62, Est GFR (MDRD) Af Amer 73, Est GFR (MDRD) Non-Af 60, BUN/Creatinine Ratio 42.4 H, Glucose 145 H, Calcium 8.7, Blood Type B POSITIVE, Antibody Screen NEGATIVE, Crossmatch See Detail 03/14/23 15:03: Crossmatch See Detail 03/14/23 23:11: Hgb 8.5 L, Hct 26.1 L 03/15/23 06:00: WBC 9.5, RBC 2.90 L, Hgb 9.1 L, Hct 27.9 L, MCV 96.2 D, MCH 31.4, MCHC 32.6, RDW Std Deviation 63.3 H, RDW Coeff of Linette 18.2 H, Plt Count 181, MPV 11.3, Immature Gran % (Auto) 0.300, Neut % (Auto) 69.4, Lymph % (Auto) 20.4, [place] % (Auto) 7.6, Eos % (Auto) 1.7, Baso % (Auto) 0.6, Absolute Neuts (auto) 6.6, Absolute Lymphs (auto) 1.94, Nucleated RBC % 0, PT 14.0, INR 1.1, APTT 26.3, Sodium 144, Potassium 3.3 L, Chloride 117 H, Carbon Dioxide 23.0, Anion Gap 4 L, BUN 26 H, Creatinine 0.72, Estim Creat Clear Calc 31.60, Est GFR (MDRD) Af Amer 99, Est GFR (MDRD) Non-Af 81, BUN/Creatinine Ratio 35.9 H, Glucose 90, Calcium 8.0 L Micro: Microbiology 03/14/23 15:05 Stool Stool Occult Blood (CAIT) - Final Occult Blood Positive Assessment & Plan Assessment/Plan (1) Acute upper GI bleed: PLAN: Plan Acute upper GI bleed-most probably secondary to nonsteroidal anti-inflammatory use, patient will be admitted to PCU, IV fluids will be administered, she will be given 2 units of packed red blood cells initially, repeat H&H will be performed later today. Patient is on Protonix drip, plan is for EGD tomorrow. Charges/Coding Visit Charges Inpatient E&M: 57376 Init Hosp L2
--- NOTE | 2023-03-15 12:57 | OP.EGD_ITS ---
Patient Name: Mehnaz Fox Procedure Date: 03/15/2023 12:27 PM Date of : 1940 Age: 82 Procedure: Upper GI endoscopy Indications: Epigastric abdominal pain, Melena Providers: mL Forrester DO Medicines: Monitored Anesthesia Care Patient Profile: This is an 82 year old female. Refer to note in patient chart for documentation of history and physical. Patient has symptoms of acute epigastric abdominal pain, acute dyspepsia and acute nausea. Complications: No immediate complications. Procedure: Pre-Anesthesia Assessment: - Prior to the procedure, a History and Physical was performed, and patient medications and allergies were reviewed. The patient is competent. The risks and benefits of the procedure and the sedation options and risks were discussed with the patient. All questions were answered and informed consent was obtained. Patient identification and proposed procedure were verified by the physician in the pre-procedure area. Mental Status Examination: alert and oriented. Respiratory Examination: clear to auscultation. CV Examination: normal. Prophylactic Antibiotics: The patient does not require prophylactic antibiotics. Prior Anticoagulants: The patient has taken no previous anticoagulant or antiplatelet agents. ASA Grade Assessment: II - A patient with mild systemic disease. After reviewing the risks and benefits, the patient was deemed in satisfactory condition to undergo the procedure. The anesthesia plan was to use monitored anesthesia care (MAC). Immediately prior to administration of medications, the patient was re-assessed for adequacy to receive sedatives. The heart rate, respiratory rate, oxygen saturations, blood pressure, adequacy of pulmonary ventilation, and response to care were monitored throughout the procedure. The physical status of the patient was re-assessed after the procedure. After obtaining informed consent, the endoscope was passed under direct vision. Throughout the procedure, the patient's blood pressure, pulse, and oxygen saturations were monitored continuously. The Endoscope was introduced through the mouth, and advanced to the second part of duodenum. The upper GI endoscopy was accomplished without difficulty. The patient tolerated the procedure well. 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 The maximum longitudinal extent of these mucosal changes was 2 cm in length. A large, ulcerating mass with bleeding and stigmata of recent bleeding was found in the distal esophagus, 39 cm from the incisors. The mass was non-obstructing and not circumferential. Biopsies were taken with a cold forceps for histology. Verification of patient identification for the specimen was done. Estimated blood loss was minimal. No gross lesions were noted in the entire examined stomach. A medium-sized hiatal hernia was present. Two oozing cratered duodenal ulcers with pigmented material were found in the duodenal bulb. The largest lesion was 6 mm in largest dimension. Area was successfully injected with 5 mL of a 1:10,000 solution of epinephrine for drug delivery. One oozing cratered duodenal ulcer with a visible vessel was found in the first portion of the duodenum. The lesion was 5 mm in largest dimension. Coagulation for hemostasis using heater probe was successful. Estimated blood loss was minimal. 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 Biopsied. - No gross lesions in the stomach. - Medium-sized hiatal hernia. - Multiple oozing duodenal ulcers with pigmented material. Injected. - One oozing duodenal ulcer with a visible vessel. Treated with a heater probe. Recommendation: - [facility]. - Clear liquid diet today. - Continue present medications. Procedure Code(s): --- Professional --- 59205, 59, Esophagogastroduodenoscopy, flexible, transoral; with control of bleeding, any method 77307, 59, Esophagogastroduodenoscopy, flexible, transoral; with directed submucosal injection(s), any substance 11320, 51, Esophagogastroduodenoscopy, flexible, transoral; with biopsy, single or multiple CPT copyright 2017 [employer]. All rights reserved. The codes documented in this report are preliminary and upon entry driver operator review may be revised to meet current compliance requirements. Lm Forrester DO 03/15/2023 12:56:30 PM This report has been signed electronically. Number of Addenda: 0 Note Initiated On: 03/15/2023 12:27 PM
--- NOTE | 2023-03-15 12:58 | OP.CCLET_ITS ---
03/15/2023 Nicci King [address] [place] [address] Re : Upper GI endoscopy procedure for Mehnaz Buenoaver Dear Dr. King This procedure was performed on Wednesday, March 15, 2023. 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 Biopsied. - No gross lesions in the stomach. - Medium-sized hiatal hernia. - Multiple oozing duodenal ulcers with pigmented material. Injected. - One oozing duodenal ulcer with a visible vessel. Treated with a heater probe. Recommendations : - [facility]. - Clear liquid diet today. - Continue present medications. My findings are described in the full procedure note, which is enclosed. If I can be of further assistance, please feel free to contact me at . Sincerely, Lm Forrester, 03/15/2023 12:56:30 PM This report has been signed electronically.
--- NOTE | 2023-03-15 13:50 | CASEMGMT ---
DIANE SAUL Face to Face with patient for initial transition planning/care coordination assessment. RN DORYS introduced self and role at [facility]. Patient lying in bed, alert and oriented. Patient willing to participate in assessment and is able to answer all questions appropriately. Care providers, pharmacy, and demographics verified. Patient wishes to discharge home, denies need for home health at this time. Patient states she has no further needs or concerns at this time. CM to follow for discharge planning needs that may arise. PCP: Christine Specialists: Rufino halver machine operator Preferred Pharmacy: [facility] Insurance: That{img} [facility] Prescription Benefit: yes Living Will/HPOA: none, in the process of completing LNOK: daughter Living Arrangements: Patient lives alone in 2 story home with bed and bath on first floor. Patient has 2 steps and railing to enter the home. Patient states she is independent at home Transportation: daughter DME/HHC: Patient has shower chair, raised toilet, cane, walker, nebuilzer, pulse ox, and home oxygen with portability at 4lpm through [employer]. Patient has had [facility] in the past. Disposition Plan: Patient to discharge home with family support and follow-up plans in place. Vera MCRAE, RN, CM
--- NOTE | 2023-03-15 14:27 | CHAPLAIN ---
Type of Pastoral Visit ___ Initial Visit ___ Follow-up Visit ___ On-call Visit ___ General Patient Visit ___ Spiritual Assessment ___ Family Conference ___ Bereavement ___ Rapid Response ___ Code Blue ___ Other (describe below) Pastoral Care Referral From ___ Patient ___ Family ___ Nurse ___ Physician ___ Alumina Refinery Operator ___ Clinical Nursing Manager ___ Other (describe below) Sacrament/Intervention ___ Active listening ___ Anointing ___ Lutheran ___ Bereavement ___ Communion ___ Zhane exploration ___ ___ Life review ___ Prayer ___ Reconciliation ___ Sacrament of Sick ___ Supportive presence ___ Wedding ___ Other (describe below) Pastoral Comments patient is not in the room; left a calling card
--- NOTE | 2023-03-15 16:22 | DCINST_ITS ---
Discharge Instructions Diet Discharge Diet: No restrictions Activity Discharge Activity: Return to Normal Activity Weight Bearing Status: Full weight bearing Follow Up Care Test Results: Test results from this visit will be discussed in further detail at your follow- up appointment, if applicable. Discharge Plan Admission Admit Date/Time: 03/14/23 16:41 Primary Reason for Your Visit: DUONEAL ULCER Attending Provider: Rakesh Sol Primary Care Provider: Nicci King Instructions Additional Instructions / Restrictions: Do not resume 81 mg aspirin for three weeks Do not take Ibuprofen or Aleve, or aspirin Discharge Orders/Prescriptions Prescriptions: New sucralfate 1 gram Tablet 1 g PO TIDAC Qty: 90 0RF pantoprazole [Protonix] 40 mg tablet,delayed release (DR/EC) 40 mg PO BID Qty: 60 0RF tramadol 50 mg tablet 50 mg PO Q6H PRN (Reason: pain) Qty: 40 0RF Rx Instructions: ONE OR TWO EVERY SIX HOURS FOR PAIN, MAY TAKE WITH 650 MG TYLENOL IF YOU DESIRE Continued multivitamin 1 EACH tablet 1 tab PO DAILY atorvastatin 40 MG tablet 40 mg PO QHS isosorbide mononitrate 30 MG tablet 30 mg PO DAILY paroxetine HCl 37.5 MG tablet extended release 24 hr 37.5 mg PO DAILY omega-3 fatty acids 1,000 mg Capsule 1,000 mg PO DAILY ramipril 2.5 mg Capsule 2.5 mg PO DAILY Vitamin C 100 mg Tablet 100 mg PO DAILY albuterol sulfate 90 mcg/actuation HFA aerosol inhaler 1 inh INHALATION Q4H PRN (Reason: SHORTNESS OF BREATH ) vitamin B complex Capsule 1 cap PO DAILY calcium carbonate-vitamin D3 500 mg-3.125 mcg (125 unit) Tablet 1 tab PO DAILY cholecalciferol (vitamin D3) 125 mcg (5,000 unit) Tablet 125 mcg PO DAILY roflumilast 500 mcg tablet 500 mcg PO DAILY acidophilus-pectin, citrus 100 million cell-10 mg Capsule 1 cap PO DAILY Trelegy Ellipta 100-62.5-25 mcg blister with device 1 inh INHALATION DAILY Azo Cranberry 250 mg Tablet,Chewable 250 mg PO DAILY acetaminophen 325 mg Tablet 650 mg PO Q6H PRN PRN (Reason: Pain 1-10 Or Fever >100.7) Qty: 0 0RF ibuprofen 400 mg Tablet 400 mg PO Q8 PRN (Reason: Pain, Moderate) Qty: 0 0RF prednisone 20 mg tablet 20 mg PO Mucinex 1,200 mg tablet extended release 12hr 1,200 mg PO BID Discontinued aspirin 81 mg Tablet,Delayed Release (Dr/Ec) 81 mg PO DAILY Referrals / Follow Up: Nicci King DO [Primary Care Provider] - See Referral Note (at next scheduled visit) Lm Forrester DO [Med Staff - Active Staff] - See Referral Note (in 3-4 weeks, call for appointment) Disposition Disposition (needs filled in before D/C Order can be placed): Home, Self Care
--- NOTE | 2023-03-15 17:13 | DS.PCM_ITS ---
Providers Date of Admission: 03/14/23 Date of Discharge: 03/15/23 Primary Care Physician: Dr. Nicci King, Consultations 03/14/23 17:50 Consult: Gastroenterology Routine Consulting Provider: [facility] Reason for Consult: Upper GI bleed EMERGENT Consult: No MD Notified: Yes Date Notified: 03/14/23 Time Notified: 16:46 Method of Notification: Verbal Reason For Visit: UPPER GI BLEED, SYMPTOMATIC ANEMIA Diagnosis Discharge Diagnosis (1) Acute upper GI bleed: Status: Acute Code(s): K92.2 - Gastrointestinal hemorrhage, unspecified Plan 1. Acute upper GI bleed-secondary to duodenal ulcers from nonsteroidal anti- inflammatory usage #2 chronic hypoxic respiratory failure-patient is on 5 L of oxygen, pulse ox will be monitored #3 chronic obstructive pulmonary disease-patient will be given aerosol treatments #4 acute blood loss anemia requiring blood transfusion-secondary to upper GI bleed, again blood count will be monitored, patient will receive packed red blood cells #5 hyperlipidemia-patient's atorvastatin will be held due to her n.p.o. 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 Total clinical time spent by myself addressing the patient's medical issues, reviewing all of her data, and collaborating with patient's care team: 55 minutes Medications at Discharge Home Medications atorvastatin 40 mg tablet 40 mg PO QHS CHOLESTEROL 12/28/17 isosorbide mononitrate 30 mg tablet,extended release 24 hr 30 mg PO DAILY HEART/CHEST PAIN 12/28/17 multivitamin 1 tab PO DAILY SUPPLEMENT 12/28/17 paroxetine HCl 37.5 mg tablet,extended release 24 hr 37.5 mg PO DAILY MOOD 12/28/17 acidophilus 100 million cell-pectin, citrus 10 mg capsule 1 cap PO DAILY GUT HEALTH 11/12/22 albuterol sulfate 90 mcg/actuation aerosol inhaler 1 inh inhalation Q4H PRN SH ORTNESS OF BREATH 11/12/22 ascorbic acid (vitamin C) 100 mg tablet (Vitamin C) 100 mg PO DAILY SUPPLEMENT 11/12/22 calcium carbonate 500 mg-vitamin D3 3.125 mcg (125 unit) tablet 1 tab PO DAILY SUPPLEMENT 11/12/22 cholecalciferol (vitamin D3) 125 mcg (5,000 unit) tablet 125 mcg PO DAILY SUPPLEMENT 11/12/22 cranberry fruit concentrate 250 mg chewable tablet (Azo Cranberry) 250 mg PO DAILY UTI PREVENTION 11/12/22 fluticasone fur. 100 mcg-umeclid 62.5 mcg-vilant 25 mcg inhalat.powder (Trelegy Ellipta) 1 inh inhalation DAILY COPD 11/12/22 omega-3 fatty acids 1,000 mg capsule 1,000 mg PO DAILY SUPPLEMENT 11/12/22 ramipril 2.5 mg capsule 2.5 mg PO DAILY HEART 11/12/22 roflumilast 500 mcg tablet 500 mcg PO DAILY COPD 11/12/22 vitamin B complex 1 cap PO DAILY SUPPLEMENT 11/12/22 acetaminophen 325 mg tablet 650 mg (2 x 325 mg) PO Q6H PRN PRN Pain 1-10 Or Fever >100.7 #0 tabs 11/17/22 ibuprofen 400 mg tablet 400 mg PO Q8 PRN Pain, Moderate #0 tabs 11/17/22 guaifenesin 1,200 mg tablet, extended release 12 hr (Mucinex) 1,200 mg PO BID . 03/14/23 prednisone 20 mg tablet 20 mg PO ,. 03/14/23 pantoprazole 40 mg tablet,delayed release (Protonix) 40 mg PO BID #60 tabs 03/15/23 tramadol 50 mg tablet 50 mg PO Q6H PRN pain #40 tabs 03/15/23 Hospital Course Operations None Procedures EGD Summary of Care Provided Minutes Spent on Discharge: 31 Hospital Course: This 82-year-old white female was seen in the emergency room at [facility] with a chief complaint of black tarry stools x24 hours. Patient denied any hematochezia or hematemesis. Patient had been taking nonsteroidal anti-inflammatory agents due to recent rib fractures from a fall. Work-up in the emergency room showed the patient's hemoglobin to be 6.9, patient was admitted to PCU, she was given 2 units of packed red blood cells and her hemoglobin was monitored. On 03/15/2023, patient underwent an EGD which showed multiple duodenal ulcers 1 of which had a visible vessel, there is also noted to be a distal esophageal neoplasm felt to be benign which was biopsied. Patient had no active bleeding during her hospitalization. On 03/15/2023, patient was seen and examined: On examination she appeared in good health and spirits, she does not appear to be in any distress. Vital signs as documented. Skin warm and dry and without overt rashes. Neck without JVD, thyroid appears normal, trachea is midline, neck is supple. Lungs clear, normal air movement was noted. Heart exam notable for regular rhythm, normal sounds and absence of murmurs, rubs or gallops. Abdomen unremarkable and without evidence of organomegaly, masses, or abdominal aortic enlargement, bowel sounds are present in all 4 quadrants, no abdominal tenderness was noted. Extremities nonedematous, no cyanosis was noted, no clubbing was noted. Neuro: Cranial nerves II through XII are grossly intact, no focal motor deficits were noted, sensation to light touch and pinprick is intact, motor exam 5/5 throughout. Psych: Patient is alert and oriented x3, she does not appear anxious or depressed, she does not appear agitated. On 03/15/2023, patient was seen and examined and felt to be in stable condition for discharge home, I discussed this with gastroenterology before her discharge, I also talked with her daughter who was in the room at the time of my examination in the afternoon on 03/15/2023. Patient was warned against taking any anti-inflammatory medications for pain and she was advised to stop her baby aspirin for 3 weeks. Patient was given a prescription for tramadol for pain to take as an outpatient. Medical Records Data Medical Nutrition Assessment Dietitian: Malnutrition Criteria Met Start: 03/15/23 13:02 Freq: Status: Active Protocol: Document 03/15/23 13:02 RMA (Rec: 03/15/23 13:02 RMA [id number]) Nutrition Malnutrition Evidence of Malnutrition Exists Yes Malnutrition (severe): Chronic Evidenced By Suboptimal Energy Intake ( Moderate),Weight Loss (Severe) Intake Problem Inadequate Oral Intake Etiology related to altered GI function Signs/Symptoms as evidenced by NPO Status Active Problem Clinical Problem Chronic Disease or Condition Related Malnutrition Etiology Severe protein-calorie malnutrition in the context of chronic disease related to inadequate oral intake and increased energy expenditure Signs/Symptoms as evidenced by BMI 20.1, ~9% weight loss x 4 months and PO meeting less than 75% estimated nutrition needs Status Active Problem Recommendation Dietitian Recommendations/Changes Recommend advance PO as tolerated to Transitional diet with goal of Regular diet. Will offer PO ensure: ensure plus vs. ensure clear as diet advanced. ONS to optimize intake as diet advanced after EGD. Weight / BMI Weight Weight: 48.3 kg Body Mass Index (BMI) 20.0 ABG / Lab / Microbiology Data 03/15/23 06:00 03/15/23 06:00 Laboratory: Laboratory Results - last 24 hr 03/14/23 15:03: Crossmatch See Detail 03/14/23 23:11: Hgb 8.5 L, Hct 26.1 L 03/15/23 06:00: WBC 9.5, RBC 2.90 L, Hgb 9.1 L, Hct 27.9 L, MCV 96.2 D, MCH 31.4, MCHC 32.6, RDW Std Deviation 63.3 H, RDW Coeff of Linette 18.2 H, Plt Count 181, MPV 11.3, Immature Gran % (Auto) 0.300, Neut % (Auto) 69.4, Lymph % (Auto) 20.4, Mclean % (Auto) 7.6, Eos % (Auto) 1.7, Baso % (Auto) 0.6, Absolute Neuts (auto) 6.6, Absolute Lymphs (auto) 1.94, Nucleated RBC % 0, PT 14.0, INR 1.1, APTT 26.3, Sodium 144, Potassium 3.3 L, Chloride 117 H, Carbon Dioxide 23.0, Anion Gap 4 L, BUN 26 H, Creatinine 0.72, Estim Creat Clear Calc 31.60, Est GFR (MDRD) Af Amer 99, Est GFR (MDRD) Non-Af 81, BUN/Creatinine Ratio 35.9 H, Gluco se 90, Calcium 8.0 L Microbiology: Microbiology 03/14/23 15:05 Stool Stool Occult Blood (CAIT) - Final Occult Blood Positive D/C Instructions Discharge Diet: No restrictions Weight Bearing Status: Full weight bearing Meaningful Use Info Meaningful Use Diagnoses (Choose all that apply): None applicable Discharge Plan Admission Admit Date/Time: 03/14/23 16:41 Primary Reason for Your Visit: DUONEAL ULCER Attending Provider: Rakesh Sol Primary Care Provider: Nicci King Instructions Additional Instructions / Restrictions: Do not resume 81 mg aspirin for three weeks Do not take Ibuprofen or Aleve, or aspirin Discharge Orders/Prescriptions Prescriptions: New pantoprazole [Protonix] 40 mg tablet,delayed release (DR/EC) 40 mg PO BID Qty: 60 0RF tramadol 50 mg tablet 50 mg PO Q6H PRN (Reason: pain) Qty: 40 0RF Rx Instructions: ONE OR TWO EVERY SIX HOURS FOR PAIN, MAY TAKE WITH 650 MG TYLENOL IF YOU DESIRE Continued multivitamin 1 EACH tablet 1 tab PO DAILY atorvastatin 40 MG tablet 40 mg PO QHS isosorbide mononitrate 30 MG tablet 30 mg PO DAILY paroxetine HCl 37.5 MG tablet extended release 24 hr 37.5 mg PO DAILY omega-3 fatty acids 1,000 mg Capsule 1,000 mg PO DAILY ramipril 2.5 mg Capsule 2.5 mg PO DAILY Vitamin C 100 mg Tablet 100 mg PO DAILY albuterol sulfate 90 mcg/actuation HFA aerosol inhaler 1 inh INHALATION Q4H PRN (Reason: SHORTNESS OF BREATH ) vitamin B complex Capsule 1 cap PO DAILY calcium carbonate-vitamin D3 500 mg-3.125 mcg (125 unit) Tablet 1 tab PO DAILY cholecalciferol (vitamin D3) 125 mcg (5,000 unit) Tablet 125 mcg PO DAILY roflumilast 500 mcg tablet 500 mcg PO DAILY acidophilus-pectin, citrus 100 million cell-10 mg Capsule 1 cap PO DAILY Trelegy Ellipta 100-62.5-25 mcg blister with device 1 inh INHALATION DAILY Azo Cranberry 250 mg Tablet,Chewable 250 mg PO DAILY acetaminophen 325 mg Tablet 650 mg PO Q6H PRN PRN (Reason: Pain 1-10 Or Fever >100.7) Qty: 0 0RF ibuprofen 400 mg Tablet 400 mg PO Q8 PRN (Reason: Pain, Moderate) Qty: 0 0RF prednisone 20 mg tablet 20 mg PO Mucinex 1,200 mg tablet extended release 12hr 1,200 mg PO BID Discontinued aspirin 81 mg Tablet,Delayed Release (Dr/Ec) 81 mg PO DAILY Referrals / Follow Up: Nicci King DO [Primary Care Provider] - See Referral Note (at next schedu led visit) FriendLm DO [Med Staff - Active Staff] - See Referral Note (in 3-4 weeks, call for appointment) Disposition Disposition (needs filled in before D/C Order can be placed): Home, Self Care Charges/Coding Visit Charges Inpatient E&M: 80646 Disch Hosp >30min
[2023-03-15] MEDS: Sucralfate 1 GM Tablet PO (17:36)
== END 2023-03-15 19:20 | disposition home or self-care (01) | DRG 378 ==
LOC: ED 16:29 → PCU 17:23
PROVIDERS: Internal Medicine Gastroenterology; Admitting Provider Internal Medicine; Emergency Provider Emergency Medicine; PCP Internal Medicine; Visit Provider Internal Medicine
PROC: 0DJ08ZZ Inspection of Upper Intestinal Tract, Via Natural or Artificial Opening Endoscopic (ICD-10-PCS; CPT 43235; principal; 2023-03-15 12:25)
DX: K26.4 Chronic or unspecified duodenal ulcer with hemorrhage (principal); D62 Acute posthemorrhagic anemia; J96.11 Chronic respiratory failure with hypoxia; J44.9 Chronic obstructive pulmonary disease, unspecified; I12.9 Hypertensive chronic kidney disease with stage 1 through stage 4 chronic kidney disease, or unspecified chronic kidney disease; N18.9 Chronic kidney disease, unspecified; I25.10 Atherosclerotic heart disease of native coronary artery without angina pectoris; D13.0 Benign neoplasm of esophagus; K44.9 Diaphragmatic hernia without obstruction or gangrene; K22.70 Barrett's esophagus without dysplasia; E78.5 Hyperlipidemia, unspecified; Z79.51 Long term (current) use of inhaled steroids; K25.9 Gastric ulcer, unspecified as acute or chronic, without hemorrhage or perforation; Z87.891 Personal history of nicotine dependence; Z79.82 Long term (current) use of aspirin
CPT/HCPCS: 36415; 70450; 71250; 80048; 82274; 85014; 85018; 85025; 85610; 85730; 86850; 86900; 86901; 86920; 86922; 88305; 88313; 88341; 88342; 93005; 94640; 99285; J7030; J7040; P9016; A4216; J2405; J3490

== ENCOUNTER → 2023-04-02 | Outpatient (CLI) | payer MEDICARE, SELFPAY ==
[2023-04-02 17:36] LABS: Hematocrit 30.7 % (37-47); Hemoglobin 9.4 g/dL (12.0-15.0); Mean Corp Hgb Conc 30.6 g/dL (32-36); Mean Corpuscular Hgb 30.9 pg (27.0-32.0); Platelet Count 278 K/mm3 (150-450); Red Blood Count 3.04 M/mm3 (4.2-5.4); White Blood Count 9.6 K/mm3 (4.4-11.0)
[2023-04-02 17:51] LABS: Basophil 1 % (0-1); Eosinophil 3 % (0-5); Lymphocyte 11 % (19-41); Monocyte 6 % (0-10); Neutrophil-Segmented 79 % (47-70); Total Cells Counted 100 (MANUAL DIFF)
[2023-04-02 17:54] LABS: Absolute Neutrophil Count 7.6 X10^3/uL (2.0-7.7); Anisocytosis 2+
[2023-04-02 17:55] LABS: Macrocytosis 1+; Ovalocyte RARE; Platelet Estimate ADEQUATE (ADEQ)
[2023-04-05 15:39] LABS: Pathologist Review Reviewed
== END | disposition home or self-care (01) ==
LOC: MTLAB 16:52
PROVIDERS: PCP Internal Medicine; Referring Provider Internal Medicine; Visit Provider Internal Medicine
DX: R79.89 Other specified abnormal findings of blood chemistry (principal)
CPT/HCPCS: 36415; 85007; 85027

== ENCOUNTER → 2023-04-06 | Outpatient (CLI) | payer MEDICARE, SELFPAY ==
[2023-04-06 17:47] LABS: Absolute Lymphocyte Count 1.54 X10^3/uL (0.83-4.51); Basophil# 0.06 X10^3/uL; Basophil% 0.7 % (0-1); Eosinophils% 3.4 % (0-5); Hematocrit 30.5 % (37-47); Hemoglobin 9.6 g/dL (12.0-15.0); Lymphocyte # 1.54 X10^3/ul (0.83-4.51); Lymphocyte % 17.6 % (19-41); Mean Corp Hgb Conc 31.5 g/dL (32-36); Mean Corpuscular Hgb 31.6 pg (27.0-32.0); Mean Corpuscular Volume 100.3 fL (81-99); Mean Platelet Vol. 11.5 fl (6.2-12.0); Monocyte# 0.85 X10^3/uL; Monocyte% 9.7 % (0-10); NRBC Flagged by Analyzer 0 % (0-5); Neutrophil # 5.97 X10^3/uL (2.7-7.7); Neutrophil % 68.3 % (47-70); Platelet Count 261 K/mm3 (150-450); RBC Distribution Width CV 15.3 % (11.6-14.6); RBC Distribution Width SD 56.6 fl (35.1-43.9); Red Blood Count 3.04 M/mm3 (4.2-5.4); White Blood Count 8.8 K/mm3 (4.4-11.0)
== END | disposition home or self-care (01) ==
LOC: MTLAB 16:42
PROVIDERS: PCP Internal Medicine; Referring Provider Internal Medicine; Visit Provider Internal Medicine
DX: K29.71 Gastritis, unspecified, with bleeding (principal)
CPT/HCPCS: 36415; 85025

== ENCOUNTER 2023-06-28 13:26 | Inpatient (IN) | payer MEDICARE, SELFPAY ==
[2023-06-28 13:27] VITALS: BP 114/59; PULSE 82; RESP 20; TEMP 36.3; O2SAT 99; BMI 19.6
[2023-06-28 14:05] VITALS: BP 134/71; PULSE 74; PULSE 75; RESP 16; RESP 17; TEMP 36.8; O2SAT 99
--- NOTE | 2023-06-28 14:17 | EDS_ITS ---
HPI HPI - GI History of Present Illness Chief Complaint: GI Bleed Informant: patient Nausea/Vomiting/Emesis GI Symptom: Negative for Nausea or Vomiting Diarrhea/Melena/Hematochezia GI Symptom: Positive for Melena; Negative for Hematochezia Stool Quality: Positive for Black Episodes: 2 Associated Symptoms Associated Symptoms: Negative for Dysuria, Frequency or Hematuria Narrative Narrative: Patient presents with melena that began yesterday. Patient states she has had 2 episodes of black tarry stools since yesterday. Patient states she has a history of peptic ulcer disease and has seen Dr. Forrester for this. Patient denies any abdominal pain. Patient denies any nausea or vomiting. Patient states she gets short of breath whenever she walks across the room. Patient admits to some generalized weakness as well. Patient denies any dysuria, frequency, or hematuria. Patient denies any chest pain or palpitations. Patient denies any cough. [facility] Medical History Anxiety and depression Atherosclerotic heart disease of [place] coronary artery without angina pectoris Chronic respiratory failure with hypoxia, on home O2 therapy CKD (chronic kidney disease) Closed right hip fracture COPD (chronic obstructive pulmonary disease) Depression Dyspnea on exertion Emphysema lung Essential hypertension Former tobacco use Nonrheumatic mitral valve regurgitation Pure hypercholesterolemia Symptomatic anemia Weakness Home Medications atorvastatin 40 mg tablet 40 mg PO QHS CHOLESTEROL 12/28/17 [History Last Taken 03/13/23] isosorbide mononitrate 30 mg tablet,extended release 24 hr 30 mg PO DAILY HEART/CHEST PAIN 12/28/17 [History Last Taken 03/14/23] multivitamin 1 tab PO DAILY SUPPLEMENT 12/28/17 [History Last Taken 03/14/23] paroxetine HCl 37.5 mg tablet,extended release 24 hr 37.5 mg PO DAILY MOOD 12/28/17 [History Last Taken 03/14/23] acidophilus 100 million cell-pectin, citrus 10 mg capsule 1 cap PO DAILY GUT HEALTH 11/12/22 [History Last Taken 03/14/23] albuterol sulfate 90 mcg/actuation aerosol inhaler 1 inh inhalation Q4H PRN SHORTNESS OF BREATH 11/12/22 [History Last Taken Unknown] ascorbic acid (vitamin C) 100 mg tablet (Vitamin C) 100 mg PO DAILY SUPPLEMENT 11/12/22 [History Last Taken 03/14/23] calcium carbonate 500 mg-vitamin D3 3.125 mcg (125 unit) tablet 1 tab PO DAILY SUPPLEMENT 11/12/22 [History Last Taken 03/14/23] cholecalciferol (vitamin D3) 125 mcg (5,000 unit) tablet 125 mcg PO DAILY SUPPLEMENT 11/12/22 [History Last Taken 03/14/23] cranberry fruit concentrate 250 mg chewable tablet (Azo Cranberry) 250 mg PO DAILY UTI PREVENTION 11/12/22 [History Last Taken 03/14/23] fluticasone fur. 100 mcg-umeclid 62.5 mcg-vilant 25 mcg inhalat.powder (Trelegy Ellipta) 1 inh inhalation DAILY COPD 11/12/22 [History Last Taken 03/14/23] omega-3 fatty acids 1,000 mg capsule 1,000 mg PO DAILY SUPPLEMENT 11/12/22 [History Last Taken 03/14/23] ramipril 2.5 mg capsule 2.5 mg PO DAILY HEART 11/12/22 [History Last Taken 03/14/23] roflumilast 500 mcg tablet 500 mcg PO DAILY COPD 11/12/22 [History Last Taken 03/14/23] vitamin B complex 1 cap PO DAILY SUPPLEMENT 11/12/22 [History Last Taken 03/14/23] acetaminophen 325 mg tablet 650 mg (2 x 325 mg) PO Q6H PRN PRN Pain 1-10 Or Fever >100.7 #0 tabs 11/17/22 [Rx Last Taken Unknown] tramadol 50 mg tablet 50 mg PO Q6H PRN pain #40 tabs 03/15/23 [Rx Last Taken Unknown] aspirin 81 mg tablet,delayed release (Adult Aspirin Regimen) 81 mg PO DAILY 06/24/23 [History Last Taken Unknown] docusate sodium 50 mg capsule (Stool Softener) 50 mg PO DAILY 06/24/23 [History Last Taken Unknown] echinacea 380 mg capsule 380 mg PO DAILY 06/24/23 [History Last Taken Unknown] iron, carbonyl 18 mg iron chewable tablet (Ferretts Carbonyl Iron) 18 mg PO DAILY 06/24/23 [History Last Taken Unknown] Allergy/AdvReac Type Severity Reaction Status Date / Time cefaclor [From Replaced By [facility]] Allergy Hives Verified 06/24/23 09:39 Family History Father Myocardial infarction, Onset Age: 43 Brother Myocardial infarction, Onset Age: 52 Brother CAD (coronary artery disease) Surgical History History of cholecystectomy Hx of tonsillectomy Social History Smoking Status: Former smoker alcohol intake: never substance use type: does not use ROS ROS ED Constitutional Constitutional ED: Denies chills or fever(s) Eyes Eyes: Denies blurry vision or change in vision ENT ENT ED: Denies rhinorrhea or sore throat Cardiovascular Cardiovascular: Denies chest pain or palpitations Respiratory/Chest Respiratory/Chest: Reports dyspnea and dyspnea on exertion; Denies cough Gastrointestinal Gastrointestinal: Reports melena; Denies nausea or vomiting Genitourinary Genitourinary ED: Denies dysuria or hematuria Musculoskeletal Musculoskeletal: Reports back pain; Denies neck pain Integumentary Denies abscess or rash Neurologic Neurologic: Reports weakness; Denies headache(s) Allergic/Immunologic Allergic/Immunologic ED: Denies mouth swelling or urticaria EXAM Physical Exam Const Vital Signs: 06/28/23 13:27 06/28/23 14:05 06/28/23 14:05 Temperature 97.3 F L 98.3 F Temperature Source Temporal Temporal Pulse Rate 82 75 74 Respiratory Rate 20 H 16 17 Blood Pressure 114/59 L 134/71 H 134/71 H Blood Pressure Mean 77 92 92 Pulse Ox 99 99 99 Oxygen Delivery Method Nasal Cannula Room Air Nasal Cannula Oxygen Flow Rate (L/min) 4 4 06/28/23 17:30 06/28/23 17:30 Temperature 98.3 F Temperature Source Temporal Pulse Rate 79 79 Respiratory Rate 16 16 Blood Pressure 141/76 H 141/76 H Blood Pressure Mean 97 97 Pulse Ox 100 99 Oxygen Delivery Method Nasal Cannula Nasal Cannula Oxygen Flow Rate (L/min) 4 4 Positive well nourished and well developed General Appearance ED: well developed and NAD HEENT Reports moist mucous membranes Eyes PERRL and EOMs intact bilaterally Neck supple and no JVD Resp normal respiratory effort and clear to auscultation bilaterally Cardio regular rate and regular rhythm GI non-tender and non-distended Palpation: soft Extremity full ROM Neuro CN's II-XII intact bilaterally, moves all extremities and no sensory deficits noted Sensorium / Orientation: alert Motor Exam: strength 5/5 throughout Psych mental status grossly normal and thought process normal MDM MDM MDM Narrative Medical decision making narrative: Differential diagnosis includes peptic ulcer disease, upper gastrointestinal bleeding, anemia, electrolyte abnormality, bowel obstruction, perforation, coagulopathy, COPD exacerbation, and urinary tract infection. CBC will be obtained to assess for leukocytosis and anemia. Basic metabolic profile will be obtained to assess for electrolyte abnormality and renal function. PT with INR and PTT will be obtained to assess for coagulopathy. Urinalysis will be obtained to assess for urinary tract infection. Chest x-ray will be obtained to assess for COPD exacerbation and pneumonia. CT scan of the abdomen pelvis will be obtained to assess for bowel obstruction and perforation. Stool will be sent for Hemoccult to assess for gastrointestinal bleeding. Lab Data Attestation: I reviewed the patient's lab results. Lab results narrative: CBC was reviewed. Hemoglobin was 8.3 and hematocrit was 25.5. This is decreased from previous result. Basic metabolic profile was reviewed. BUN was only slightly elevated at 25. Glucose was slightly elevated at 112. The remainder was within normal limits. Urinalysis was reviewed. There is no evidence of urinary tract infection or hematuria. PT with INR and PTT were reviewed and were within normal limits. Labs: Laboratory Results - last 24 hr 06/28/23 06/28/23 06/28/23 14:00 15:08 15:44 WBC 7.7 RBC 2.46 L Hgb 8.3 L Hct 25.5 L MCV 103.7 H MCH 33.7 H MCHC 32.5 RDW Std Deviation 54.6 H RDW Coeff of [place] 14.8 H Plt Count 244 MPV 11.7 Immature Gran % (Auto) 0.300 Neut % (Auto) 70.5 H Lymph % (Auto) 18.9 L Dickens % (Auto) 7.9 Eos % (Auto) 1.8 Baso % (Auto) 0.6 Absolute Neuts (auto) 5.5 Absolute Lymphs (auto) 1.46 Nucleated RBC % 0 PT Cancelled Cancelled INR Cancelled Cancelled APTT Cancelled Cancelled Sodium 143 Potassium 3.6 Chloride 110 H Carbon Dioxide 31.0 Anion Gap 2 L BUN 25 H Creatinine 0.78 Estim Creat Clear Calc 31.19 Est GFR (MDRD) Af Amer 90 Est GFR (MDRD) Non-Af 75 BUN/Creatinine Ratio 32.1 H Glucose 112 H Calcium 9.3 Urine Color Yellow Urine Clarity Clear Urine pH 6.5 Ur Specific Delta 1.020 Urine Protein Negative Urine Glucose (UA) Normal Urine Ketones Negative Urine Occult Blood Negative Urine Nitrite Negative Urine Bilirubin Negative Urine Urobilinogen Normal Ur Leukocyte Esterase Negative Urine RBC 0 SEEN Urine WBC 0-5 SEEN Ur Squamous Epith Cells 0 SEEN Urine Bacteria RARE Urine Mucus 0 SEEN 06/28/23 16:01 WBC RBC Hgb Hct MCV MCH MCHC RDW Std Deviation RDW Coeff of Linette Plt Count MPV Immature Gran % (Auto) Neut % (Auto) Lymph % (Auto) Dickens % (Auto) Eos % (Auto) Baso % (Auto) Absolute Neuts (auto) Absolute Lymphs (auto) Nucleated RBC % PT 14.4 INR 1.1 APTT 26.2 Sodium Potassium Chloride Carbon Dioxide Anion Gap BUN Creatinine Estim Creat Clear Calc Est GFR (MDRD) Af Amer Est GFR (MDRD) Non-Af BUN/Creatinine Ratio Glucose Calcium Urine Color Urine Clarity Urine pH Ur Specific Delta Urine Protein Urine Glucose (UA) Urine Ketones Urine Occult Blood Urine Nitrite Urine Bilirubin Urine Urobilinogen Ur Leukocyte Esterase Urine RBC Urine WBC Ur Squamous Epith Cells Urine Bacteria Urine Mucus Radiography Diagnostic Testing: Clinical Impression(s) from Imaging Studies Abdomen/Pelvis CT 06/28/23 14:28 IMPRESSION: No acute abnormalities in the abdomen or pelvis. Extensive diverticulosis. Multilevel grade 1 spondylolisthesis of the lumbar spine. Electronically Signed: Mann Montgomery MD at 16:54 EDT , Chest X-Ray 06/28/23 14:29 IMPRESSION: No acute radiographic abnormalities. Chronic lung changes. Electronically Signed: Mann Montgomery MD at 16:50 EDT , Portable 1 view chest x-ray was obtained. On my independent interpretation, lung payne show chronic changes. There is normal cardiac silhouette. Bony thorax is normal. There is no acute process noted. Radiologist also interpreted the x-ray and agrees. CT scan of the abdomen pelvis was obtained. There is no acute abnormality noted. There is diverticulosis but no evidence of diverticulitis. There is no free air or free fluid. This was interpreted by the radiologist and was also independently reviewed by myself. Management Discussion w/another healthcare provider: Hospitalist Treatment and Re-Evaluation :: Patient was advised of her findings. Patient is feeling better on reevaluation. Patient was advised of the need for hospitalization. Patient is agreeable with this. Case was discussed with the hospitalist. She recommended giving the patient a Protonix bolus and starting the patient on Protonix drip. She will admit the patient to her service. Patient and family understood and were agreeable with the plan. All questions were answered. Discharge Plan Triage Chief Complaint: GI Bleed ED Provider: Ean Langley Dx/Rx/DC Orders Clinical Impression: Acute upper gastrointestinal bleeding, COPD (chronic obstructive pulmonary disease), Anemia Prescriptions: No Action echinacea 380 mg capsule 380 mg PO DAILY Rx Instructions: administer with meals Stool Softener 50 mg capsule 50 mg PO DAILY aspirin [Adult Aspirin Regimen] 81 mg tablet,delayed release (DR/EC) 81 mg PO DAILY Ferretts Carbonyl Iron 18 mg iron tablet,chewable 18 mg PO DAILY multivitamin 1 EACH tablet 1 tab PO DAILY atorvastatin 40 MG tablet 40 mg PO QHS isosorbide mononitrate 30 MG tablet 30 mg PO DAILY paroxetine HCl 37.5 MG tablet extended release 24 hr 37.5 mg PO DAILY omega-3 fatty acids 1,000 mg Capsule 1,000 mg PO DAILY ramipril 2.5 mg Capsule 2.5 mg PO DAILY Vitamin C 100 mg Tablet 100 mg PO DAILY albuterol sulfate 90 mcg/actuation HFA aerosol inhaler 1 inh INHALATION Q4H PRN (Reason: SHORTNESS OF BREATH ) vitamin B complex Capsule 1 cap PO DAILY calcium carbonate-vitamin D3 500 mg-3.125 mcg (125 unit) Tablet 1 tab PO DAILY cholecalciferol (vitamin D3) 125 mcg (5,000 unit) Tablet 125 mcg PO DAILY roflumilast 500 mcg tablet 500 mcg PO DAILY acidophilus-pectin, citrus 100 million cell-10 mg Capsule 1 cap PO DAILY Trelegy Ellipta 100-62.5-25 mcg blister with device 1 inh INHALATION DAILY Azo Cranberry 250 mg Tablet,Chewable 250 mg PO DAILY acetaminophen 325 mg Tablet 650 mg PO Q6H PRN PRN (Reason: Pain 1-10 Or Fever >100.7) Qty: 0 0RF tramadol 50 mg tablet 50 mg PO Q6H PRN (Reason: pain) Qty: 40 0RF Rx Instructions: ONE OR TWO EVERY SIX HOURS FOR PAIN, MAY TAKE WITH 650 MG TYLENOL IF YOU DESIRE Primary Care Provider: Nicci King Referrals: Nicci King DO [Primary Care Provider] - Disposition Disposition: Acute Care Hospital [facility]
--- NOTE | 2023-06-28 14:28 | CT_ITS ---
INDICATION: Abdominal pain EXAMINATION: CT Abdomen And Pelvis W/ Contrast Injection TECHNIQUE: Helically acquired images were obtained of the abdomen and pelvis after IV contrast. A radiation dose optimization technique was used for this scan. IV Contrast dosage and agent: Oral and amp; IV Gastrografin and amp; 100mL [id number] Oral contrast: Yes COMPARISON: None. FINDINGS: Visualized lung bases: Emphysematous changes. Liver: Unremarkable Gallbladder: Unremarkable Spleen: Unremarkable Pancreas: Unremarkable Adrenal Glands: Unremarkable Kidneys: Unremarkable Vasculature: Severe aortoiliac atherosclerotic disease. GI Tract: Extensive colonic diverticula. The appendix is not visualized. Oral contrast is seen throughout the colon. Lymphadenopathy: None Peritoneum: No ascites. Bladder: Unremarkable Reproductive organs: Unremarkable Bones/Soft tissues: There are diffuse degenerative changes of the spine. Multilevel grade 1 spondylolisthesis of the lumbar spine. Right total hip arthroplasty. CT/Abdomen/Pelvis WITH Contrast IMPRESSION: No acute abnormalities in the abdomen or pelvis. Extensive diverticulosis. Multilevel grade 1 spondylolisthesis of the lumbar spine. Electronically Signed: Mann Montgomery MD at 16:54 EDT ,
--- NOTE | 2023-06-28 14:29 | RAD_ITS ---
INDICATION: Dyspnea EXAMINATION/TECHNIQUE: X-RAY - XR Chest 2 Views COMPARISON: 11/08/2022. FINDINGS: Chronic lung changes. No definite acute lung findings. Tortuous and calcified thoracic aorta. The heart is not enlarged. No pleural effusion or pneumothorax. Degenerative changes of the thoracic spine. RAD/Chest PA and Lateral IMPRESSION: No acute radiographic abnormalities. Chronic lung changes. Electronically Signed: Mann Montgomery MD at 16:50 EDT ,
[2023-06-28 14:52] LABS: Absolute Lymphocyte Count 1.46 X10^3/uL (0.83-4.51); Absolute Neutrophil Count 5.5 X10^3/uL (2.0-7.7); Basophil# 0.05 X10^3/uL; Basophil% 0.6 % (0-1); Eosinophil# 0.14 X10^3/uL; Eosinophils% 1.8 % (0-5); Hematocrit 25.5 % (37-47); Hemoglobin 8.3 g/dL (12.0-15.0); Lymphocyte # 1.46 X10^3/ul (0.83-4.51); Lymphocyte % 18.9 % (19-41); Mean Corp Hgb Conc 32.5 g/dL (32-36); Mean Corpuscular Hgb 33.7 pg (27.0-32.0); Mean Corpuscular Volume 103.7 fL (81-99); Mean Platelet Vol. 11.7 fl (6.2-12.0); Monocyte# 0.61 X10^3/uL; Monocyte% 7.9 % (0-10); NRBC Flagged by Analyzer 0 % (0-5); Neutrophil # 5.46 X10^3/uL (2.7-7.7); Neutrophil % 70.5 % (47-70); Platelet Count 244 K/mm3 (150-450); RBC Distribution Width CV 14.8 % (11.6-14.6); RBC Distribution Width SD 54.6 fl (35.1-43.9); Red Blood Count 2.46 M/mm3 (4.2-5.4); White Blood Count 7.7 K/mm3 (4.4-11.0)
--- NOTE | 2023-06-28 15:04 | NURSING ---
TUBE TOO SHORT, NEEDS REDRAWN
[2023-06-28 15:06] LABS: Anion Gap 2 (5-15); BUN 25 mg/dL (7-18); BUN/Creat Ratio 32.1 RATIO (10-20); Calcium,Total 9.3 mg/dL (8.5-10.1); Chloride 110 mmol/L (98-107); Creatinine, Serum 0.78 mg/dL (0.55-1.02); EST Glomerular Filtration Rate 75 mL/min (>60); Est Glom Filt Rate - Afr Amer 90 mL/min (>60); Estimated Creatinine Clearance 31.19 ml/min; Glucose 112 mg/dL (74-106); Potassium 3.6 mmol/L (3.5-5.1); Sodium Level 143 mmol/L (136-145)
[2023-06-28 15:52] LABS: Mucous, Urine 0 SEEN /hpf (<or=2+); Red Blood Cells-Urine 0 SEEN /hpf (0-5); Squamous Epithelial Cells - UA 0 SEEN /hpf (5-10)
[2023-06-28 16:09] LABS: Color, Urine Yellow (Yellow); Glucose, Dipstick Normal (Normal); Ketone-Dipstick Negative (Negative); Leukocyte Esterase-Dipstick Negative /ul (Negative); Nitrite-Dipstick Negative (Negative); Occult Blood-Urine Negative /ul (Negative); Protein-Dipstick Negative (Negative); Urine Bilirubin Dipstick Negative (Negative); Urine Clarity Clear (Clear); Urine Urobilinogen Normal (Normal); Urine pH 6.5 (5.0 - 8.0)
[2023-06-28 16:26] LABS: International Normalized Ratio 1.1; Prothrombin Time (Protime)PT. 14.4 SECONDS (11.7-14.9)
[2023-06-28 16:27] LABS: Partial Thromboplast Time 26.2 Seconds (24.1-36.2)
[2023-06-28 17:14] LABS: Bacteria RARE /hpf (None Seen); White Blood Cells 0-5 SEEN /hpf (0-5)
[2023-06-28 17:30] VITALS: BP 141/76; PULSE 79; RESP 16; TEMP 36.8; O2SAT 100; O2SAT 99
--- NOTE | 2023-06-28 17:41 | PCM.HP.STD ---
[facility] - General General Date of Admission: 06/28/23 Date of Service: 06/28/23 Chief Complaint: Melena HPI Narrative ZAHIDA FRYE, is a 82 F who presented to the emergency department at [facility] on 06/28/2023 due to melena, worsening shortness of breath and fatigue. Patient noted 2 episodes of black tarry stools since yesterday. She had admission in March 2023 for an acute GI bleed at which time she was found to have peptic ulcer disease and an esophageal mass. Dr. Forrester performed the EGD and cauterized and treated duodenal ulcers that were found at that time and a biopsy was taken. 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 The patient was instructed to follow-up with GI however when she called to make an appointment they were scheduling out to September so she did not follow-up. She also did follow-up with her primary care physician but reports no mention of these abnormal biopsy findings were reported. Patient does indicate she has had about a 20 pound weight loss in the last few months and her appetite is poor. She denies any nausea or vomiting and states she only has very minimal abdominal pain. When I asked her where she pointed to just below the xiphoid process. She reported she is noted increased fatigue and shortness of breath as well. She is chronically dependent on oxygen at 4 L during the day and wears BiPAP with 1 L bleed nocturnally for SAMANTHA. She is compliant with this. Patient reports that the symptoms were present as well when she had her previous GI bleeding. She has not been on Protonix as when her initial prescription ran out it was not refilled. Vital signs on presentation were unremarkable. CBC showed normal white count however hemoglobin was 8.3 which is down from the 9-10 range she had been running. Her platelet count was normal. Coags were normal. Chemistry panel was overall unremarkable however BUN was elevated at 25 in relationship to her serum creatinine which was 0.78. Her urine is unremarkable. CT of the abdomen pelvis was unremarkable other than multilevel grade 1 spondylolisthesis in the lumbar spine and extensive diverticulosis. Chest x-ray showed findings consistent with chronic emphysematous changes and hyperinflation but was otherwise unremarkable for any acute findings. We gave her a bolus of Protonix and started Protonix drip and patient was admitted to the medical floor for ongoing treatment. [facility] Medical History (Updated 06/28/23 @ 20:[address] Jonelle Orourke DO) Anxiety Anxiety and depression Atherosclerotic heart disease of [place] coronary artery without angina pectoris BiPAP (biphasic positive airway pressure) dependence Chronic respiratory failure with hypoxia, on home O2 therapy CKD (chronic kidney disease) Closed right hip fracture COPD (chronic obstructive pulmonary disease) Depression Duodenal ulcer Dyspnea on exertion Emphysema lung Essential hypertension Former smoker Former tobacco use GI bleed Hypertension Nonrheumatic mitral valve regurgitation On home oxygen therapy Pure hypercholesterolemia Symptomatic anemia Weakness Home Medications atorvastatin 40 mg tablet 40 mg PO QHS CHOLESTEROL 12/28/17 [History Last Taken 03/13/23] isosorbide mononitrate 30 mg tablet,extended release 24 hr 30 mg PO DAILY HEART/CHEST PAIN 12/28/17 [History Last Taken 03/14/23] multivitamin 1 tab PO DAILY SUPPLEMENT 12/28/17 [History Last Taken 03/14/23] paroxetine HCl 37.5 mg tablet,extended release 24 hr 37.5 mg PO DAILY MOOD 12/28/17 [History Last Taken 03/14/23] acidophilus 100 million cell-pectin, citrus 10 mg capsule 1 cap PO DAILY GUT HEALTH 11/12/22 [History Last Taken 03/14/23] albuterol sulfate 90 mcg/actuation aerosol inhaler 1 inh inhalation Q4H PRN SHORTNESS OF BREATH 11/12/22 [History Last Taken Unknown] ascorbic acid (vitamin C) 100 mg tablet (Vitamin C) 100 mg PO DAILY SUPPLEMENT 11/12/22 [History Last Taken 03/14/23] calcium carbonate 500 mg-vitamin D3 3.125 mcg (125 unit) tablet 1 tab PO DAILY SUPPLEMENT 11/12/22 [History Last Taken 03/14/23] cranberry fruit concentrate 250 mg chewable tablet (Azo Cranberry) 500 mg PO DAILY UTI PREVENTION 11/12/22 [History Last Taken 03/14/23] fluticasone fur. 100 mcg-umeclid 62.5 mcg-vilant 25 mcg inhalat.powder (Trelegy Ellipta) 1 inh inhalation DAILY COPD 11/12/22 [History Last Taken 03/14/23] omega-3 fatty acids 1,000 mg capsule 1,000 mg PO DAILY SUPPLEMENT 11/12/22 [History Last Taken 03/14/23] ramipril 2.5 mg capsule 2.5 mg PO DAILY HEART 11/12/22 [History Last Taken 03/14/23] roflumilast 500 mcg tablet 500 mcg PO DAILY COPD 11/12/22 [History Last Taken 03/14/23] vitamin B complex 1 cap PO DAILY SUPPLEMENT 11/12/22 [History Last Taken 03/14/23] acetaminophen 325 mg tablet 650 mg (2 x 325 mg) PO Q6H PRN PRN Pain 1-10 Or Fever >100.7 #0 tabs 11/17/22 [Rx Last Taken Unknown] tramadol 50 mg tablet 50 mg PO Q6H PRN pain #40 tabs 03/15/23 [Rx Last Taken Unknown] aspirin 81 mg tablet,delayed release (Adult Aspirin Regimen) 81 mg PO DAILY heart 06/24/23 [History Last Taken Unknown] docusate sodium 50 mg capsule (Stool Softener) 50 mg PO DAILY stools 06/24/23 [History Last Taken Unknown] echinacea 380 mg capsule 380 mg PO DAILY dietary suplement 06/24/23 [History Last Taken Unknown] iron, carbonyl 18 mg iron chewable tablet (Ferretts Carbonyl Iron) 9 mg PO DAILY dietary suplement 06/24/23 [History Last Taken Unknown] calcium carbonate 600 mg-vitamin D3 5 mcg (200 unit) tablet (Calcium 600 + D(3)) 1 tab PO DAILY supplement 06/28/23 [History Last Taken Unknown] Allergy/AdvReac Type Severity Reaction Status Date / Time cefaclor [From [facility]] Allergy Severe Hives Verified 06/28/23 18:08 Family History Father Myocardial infarction, Onset Age: 43 Brother Myocardial infarction, Onset Age: 52 Brother CAD (coronary artery disease) Surgical History (Updated 06/28/23 @ 20:[address] Jonelle Orourke DO) History of cholecystectomy History of esophagogastroduodenoscopy (EGD) Hx of tonsillectomy Social History Smoking Status: Former smoker alcohol intake: never substance use type: does not use ROS Constitutional Constitutional: Reports anorexia, change in weight, fatigue, malaise and weakness; Denies chills, fever(s), night sweats or other Eyes Eyes: Denies blurry vision, change in eye color, change in vision, discharge from eye(s), double vision, erythema, eye pain, loss of vision or other ENT HEENT: Denies abnormal hearing, dysphagia, ear pain, epistaxis, headache(s), hearing loss, nasal congestion, nasal discharge, post nasal drip, sinus pressure, sore throat or other Cardiovascular Cardiovascular: Denies chest pain, claudication, dyspnea on exertion, edema, lightheadedness, orthopnea, palpitations, paroxysmal nocturnal dyspnea, rapid heart rate, syncope or other Respiratory/Chest Respiratory/Chest: Reports shortness of breath at rest and shortness of breath with exertion; Denies cough, dyspnea, excessive phlegm production, hemoptysis, productive cough, wheezing or other Gastrointestinal Gastrointestinal: Reports abdominal pain and melena; Denies coffee ground emesis, constipation, diarrhea, dyspepsia, hematemesis, hematochezia, loose stools, nausea, vomiting or other Genitourinary Genitourinary: Denies burning urination, difficulty urinating, dysuria, hematuria, nocturia, urinary frequency, urinary hesitancy, urinary incontinence, urinary urgency or other Musculoskeletal Musculoskeletal: Reports back pain; Denies arthralgias, joint pain, joint stiffness, joint swelling, myalgias, neck pain or other Neurologic Neurologic: Denies abnormal gait, abnormal speech, confusion, disequilibrium, dizziness, focal weakness, headache(s), numbness, paresthesias, seizure-like activity, seizures, syncope, tingling, tremor(s) or other Psychiatric Psychiatric: Reports depression; Denies anxiety, homicidal ideation, suicidal ideation or other Endocrine Endocrinology: Denies change in body appearance, cold intolerance, excessive sweating, heat intolerance, polydipsia, polyuria or other Hematologic/Lymphatic Hematologic/Lymphatic: Reports anemia; Denies easy bleeding, easy bruising, lymphadenopathy or other Allergic/Immunologic Allergic/Immunologic: Denies rhinitis, hives, eczemia, asthma or other Vital Signs Vital Signs Vital Signs: 06/28/23 13:27 06/28/23 14:05 06/28/23 14:05 Temperature 97.3 F L 98.3 F Temperature Source Temporal Temporal Pulse Rate 82 75 74 Respiratory Rate 20 H 16 17 Blood Pressure 114/59 L 134/71 H 134/71 H Blood Pressure Mean 77 92 92 Pulse Ox 99 99 99 Oxygen Delivery Method Nasal Cannula Room Air Nasal Cannula Oxygen Flow Rate (L/min) 4 4 06/28/23 17:30 06/28/23 17:30 Temperature 98.3 F Temperature Source Temporal Pulse Rate 79 79 Respiratory Rate 16 16 Blood Pressure 141/76 H 141/76 H Blood Pressure Mean 97 97 Pulse Ox 100 99 Oxygen Delivery Method Nasal Cannula Nasal Cannula Oxygen Flow Rate (L/min) 4 4 Weight Weight: 47.174 kg Body Mass Index (BMI) 19.6 Physical Exam Const alert, oriented x3 and no apparent distress Constitutional Narrative: Frail-appearing, elderly, white female, sitting up in bed, daughter at bedside, patient appears comfortable and nontoxic, currently on 4 L nasal cannula which is her baseline General Appearance: cooperative HEENT normocephalic, head/scalp atraumatic and moist oral mucous membranes HEENT Narrative: Dentures in place, Mallampati 3, no thrush, mild hearing loss Eyes PERRL and EOMs intact bilaterally; Negative for conjunctivae normal Eyes Narrative: Significant conjunctival pallor, no scleral icterus Neck no lymphadenopathy and supple Neck Narrative: Trachea midline, no thyroid enlargement Resp normal respiratory effort, no retractions, no use of accessory muscles and clear to auscultation bilaterally Resp Narrative: Diffusely diminished but clear Auscultation: Negative for rales, rhonchi or wheezes Cardio regular rate, regular rhythm, S1 normal heart sound, S2 normal heart sound, no murmurs, no rub, no gallops and no clicks GI normal to inspection, nondistended, normoactive bowel sounds and soft to palpation GI Narrative: Minimal tenderness in epigastric area Extremity no clubbing, cyanosis or edema Extremity Narrative: Decreased lean muscle mass Skin no rashes or lesions noted, no wounds, no jaundice, no petechiae and no mottling Skin Narrative: Skin is pale, palmar creases are pale Neuro oriented x3, CN's II-XII intact bilaterally, moves all extremities and no focal motor deficits Neuro Narrative: Generalized weakness noted Speech: speech normal Psych affect normal Psych Narrative: Very pleasant, eye contact is good, patient interacts appropriately Results Lab / Micro Data 06/28/23 14:00 06/28/23 14:00 Labs: Laboratory Results - last 24 hr 10/23/23 14:00: WBC 7.7, RBC 2.46 L, Hgb 8.3 L, Hct 25.5 L, MCV 103.7 H, MCH 33.7 H, MCHC 32.5, RDW Std Deviation 54.6 H, RDW Coeff of Lin[place] 14.8 H, Plt Count 244, MPV 11.7, Immature Gran % (Auto) 0.300, Neut % (Auto) 70.5 H, Lymph % (Auto) 18.9 L, [place] % (Auto) 7.9, Eos % (Auto) 1.8, Baso % (Auto) 0.6, Absolute Neuts (auto) 5.5, Absolute Lymphs (auto) 1.46, Nucleated RBC % 0, PT Cancelled, INR Cancelled, APTT Cancelled, Sodium 143, Potassium 3.6, Chloride 110 H, Carbon Dioxide 31.0, Anion Gap 2 L, BUN 25 H, Creatinine 0.78, Estim Creat Clear Calc 31.19, Est GFR (MDRD) Af Amer 90, Est GFR (MDRD) Non-Af 75, BUN/Creatinine Ratio 32.1 H, Glucose 112 H, Calcium 9.3 06/28/23 15:08: PT Cancelled, INR Cancelled, APTT Cancelled 06/28/23 15:44: Urine Color Yellow, Urine Clarity Clear, Urine pH 6.5, Ur Specific Elsa 1.020, Urine Protein Negative, Urine Glucose (UA) Normal, Urine Ketones Negative, Urine Occult Blood Negative, Urine Nitrite Negative, Urine Bilirubin Negative, Urine Urobilinogen Normal, Ur Leukocyte Esterase Negative, Urine RBC 0 SEEN, Urine WBC 0-5 SEEN, Ur Squamous Epith Cells 0 SEEN, Urine Bacteria RARE, Urine Mucus 0 SEEN 06/28/23 16:01: PT 14.4, INR 1.1, APTT 26.2 Micro: Microbiology 06/28/23 17:06 Stool Stool Occult Blood (CAIT) - Final Radiology Impression Abdomen/Pelvis CT 06/28/23 14:28 IMPRESSION: No acute abnormalities in the abdomen or pelvis. Extensive diverticulosis. Multilevel grade 1 spondylolisthesis of the lumbar spine. Electronically Signed: Mann Montgomery MD at 16:54 EDT , Chest X-Ray 06/28/23 14:29 IMPRESSION: No acute radiographic abnormalities. Chronic lung changes. Electronically Signed: Mann Montgomery MD at 16:50 EDT , Assessment & Plan Assessment/Plan (1) Anemia: (2) Acute upper gastrointestinal bleeding: (3) Esophageal cancer: PLAN: Plan Melena -Suspect upper GI bleed with history -EGD performed on 03/15/2023 and patient was found to have Young's esophagus, esophageal tumor which was biopsied, multiple oozing duodenal ulcers that were injected and 1 oozing duodenal ulcer with a visible vessel that was treated with heater probe -Biopsy did reveal a minute focus of well-differentiated invasive adenocarcinoma in the background of high-grade dysplasia as well as focal intestinal metaplasia in the esophagus consistent with Young's esophagus -Patient did not follow-up with Dr. Forrester as recommended--> they did try to call the office and were told that the earliest appointment was September and elected not to follow-up due to the wait -Start Protonix drip -Hold aspirin -Clear liquids now with n.p.o. after midnight -Consult GI as patient will likely require repeat endoscopy Acute on chronic anemia -It appears hemoglobin has been running between 9 and 10 -Hemoglobin on presentation was 8.3 and patient reporting dark tarry stools -Hold home aspirin -Every 6 hours hemoglobin -Transfuse for precipitous drop or hemoglobin less than 7 -Check iron studies Esophageal cancer/Young's esophagus -Biopsy did reveal a minute focus of well-differentiated invasive adenocarcinoma in the background of high-grade dysplasia as well as focal intestinal metaplasia in the esophagus consistent with Young's esophagus -We will likely need repeat EGD and further discussion -Attempted 3 times to get in contact with Dr. Forrester however was not able to contact him--> we will need to discuss further Chronic hypoxic respiratory failure secondary to COPD/SAMANTHA -Patient is on 4 L during the day and wears BiPAP with 1 L bleed nocturnally -Patient is currently on baseline oxygen -Continue home inhalers-as needed albuterol Hypertension -Continue home isosorbide mononitrate -continue home ramipril Hyperlipidemia -Continue home atorvastatin Depression -Continue paroxetine History of tobacco abuse -Remote -Continue ongoing cessation DVT prophylaxis -SCDs -Chemoprophylaxis contraindicated due to GI bleeding CODE STATUS -DNR CCA with no intubation as per discussion with patient while her daughter was at the bedside in the emergency department Charges/Coding Visit Charges Inpatient E&M: 78650 Init Hosp L2
--- NOTE | 2023-06-28 17:55 | NURSING ---
MED SURG JASS GASTROINTESTINAL BLEEDING, ANEMIA
[2023-06-28 18:21] LABS: Ferritin 17 ng/mL (8-252); Iron 76 ug/dL (50-170); Iron Binding Capacity,Total 295 ug/dL (250-450); PERCENT IRON SATURATION 25.8 % (15.0-55.0)
[2023-06-28 18:30] VITALS: BP 138/72; PULSE 76; RESP 18; TEMP 36.8; O2SAT 99
[2023-06-28] MEDS: Pantoprazole Sodium 80 MG in 0.9% Normal Saline (50mL Bag) 15 ML 420 MG IV BOLUS (18:30)
[2023-06-28] MEDS: Pantoprazole Sodium 80 MG in 0.9% Normal Saline (100mL Bag) 80 ML 10 MG CONT INF (18:36)
[2023-06-28 18:57] VITALS: BMI 20.6
[2023-06-28 19:35] VITALS: O2SAT 96
[2023-06-28 20:50] LABS: Hematocrit 24.2 % (37-47); Hemoglobin 7.7 g/dL (12.0-15.0)
[2023-06-28] MEDS: Lactated Ringers 1,000 ML 75 ML IV (22:05)
[2023-06-28] MEDS: Atorvastatin Calcium 40 MG Tablet PO (22:10)
[2023-06-29] VITALS (13 sets, daily range): BP systolic 91–153; BP diastolic 51–93; PULSE 77–112; RESP 16–18; TEMP 36.6–37.5; O2SAT 95–100
[2023-06-29 02:38] LABS: Absolute Lymphocyte Count 1.39 X10^3/uL (0.83-4.51); Absolute Neutrophil Count 5.6 X10^3/uL (2.0-7.7); Basophil# 0.05 X10^3/uL; Basophil% 0.6 % (0-1); Eosinophil# 0.22 X10^3/uL; Eosinophils% 2.8 % (0-5); Hemoglobin 7.7 g/dL (12.0-15.0); Lymphocyte # 1.39 X10^3/ul (0.83-4.51); Lymphocyte % 17.7 % (19-41); Mean Corp Hgb Conc 32.1 g/dL (32-36); Mean Corpuscular Hgb 32.9 pg (27.0-32.0); Mean Corpuscular Volume 102.6 fL (81-99); Mean Platelet Vol. 11.3 fl (6.2-12.0); Monocyte% 7.6 % (0-10); NRBC Flagged by Analyzer 0 % (0-5); Neutrophil # 5.56 X10^3/uL (2.7-7.7); Neutrophil % 70.9 % (47-70); Platelet Count 223 K/mm3 (150-450); RBC Distribution Width CV 14.7 % (11.6-14.6); Red Blood Count 2.34 M/mm3 (4.2-5.4); White Blood Count 7.9 K/mm3 (4.4-11.0)
[2023-06-29 02:54] LABS: AST(SGOT) 13 U/L (15-37); Alanine Aminotransfer ALT/SGPT 17 U/L (13-56); Albumin, Serum 2.7 g/dL (3.2-5.0); Alkaline Phosphatase 47 U/L (45-117); Anion Gap 3 (5-15); BUN 16 mg/dL (7-18); BUN/Creat Ratio 19.7 RATIO (10-20); Calcium,Total 8.2 mg/dL (8.5-10.1); Chloride 111 mmol/L (98-107); Creatinine, Serum 0.81 mg/dL (0.55-1.02); EST Glomerular Filtration Rate 71 mL/min (>60); Est Glom Filt Rate - Afr Amer 86 mL/min (>60); Estimated Creatinine Clearance 37.14 ml/min; Globulin 2.8 g/dL (2.2-4.2); Glucose 97 mg/dL (74-106); Magnesium 2.1 mg/dL (1.6-2.6); Phosphorus 3.5 mg/dL (2.5-4.9); Potassium 3.4 mmol/L (3.5-5.1); Protein, Total 5.5 g/dL (6.4-8.2); Sodium Level 145 mmol/L (136-145)
[2023-06-29] MEDS: Pantoprazole Sodium 80 MG in 0.9% Normal Saline (100mL Bag) 80 ML 10 MG CONT INF ×2 (03:55→16:56)
[2023-06-29] MEDS: Budesonide Respules 0.5 MG/2 ML AMPUL.NEB. INHALATION ×2 (07:28→19:12)
[2023-06-29] MEDS: Ipratropium/Albuterol Sulfate 3 ML AMPUL.NEB INHALATION ×3 (07:28→19:12)
--- NOTE | 2023-06-29 07:43 | PCM.PN.HOSP ---
Reason for Visit Reason for Visit: Diagnoses Malignant neoplasm of esophagus, unspecified (06/28/23) Anemia, unspecified (06/28/23) Gastrointestinal hemorrhage, unspecified (06/28/23) Subjective Subjective Patient has not had any bowel movements overnight, no nausea, no abdominal pain at this time Objective Data Objective Data Vital Signs: Vital Signs Temp Pulse Resp BP Pulse Ox O2 Del Method O2 Flow Rate 98.0 F 77 18 137/66 H 100 Nasal Cannula 4 06/29/23 04:00 06/29/23 04:00 06/29/23 04:00 06/29/23 04:00 06/29/23 04:00 06/29/23 04:00 06/29/23 04:00 Oxygen Flow Rate (L/min) 4 Oxygen Delivery Method Nasal Cannula Weight: 48 kg Body Mass Index (BMI) 20.6 Intake & Output: Intake and Output for Last 24 Hours 06/27/23 06/28/23 06/29/23 23:59 23:59 23:59 Intake Total 35 / 35 93.67 / 93.67 Output Total 400 / 400 Balance 35 / 35 -306.33 / -306.33 Lab / Micro Data 06/29/23 02:10 06/29/23 02:10 Labs: Laboratory Results - last 24 hr 06/28/23 14:00: WBC 7.7, RBC 2.46 L, Hgb 8.3 L, Hct 25.5 L, MCV 103.7 H, MCH 33.7 H, MCHC 32.5, RDW Std Deviation 54.6 H, RDW Coeff of [place] 14.8 H, Plt Count 244, MPV 11.7, Immature Gran % (Auto) 0.300, Neut % (Auto) 70.5 H, Lymph % (Auto) 18.9 L, [place] % (Auto) 7.9, Eos % (Auto) 1.8, Baso % (Auto) 0.6, Absolute Neuts (auto) 5.5, Absolute Lymphs (auto) 1.46, Nucleated RBC % 0, PT Cancelled, INR Cancelled, APTT Cancelled, Sodium 143, Potassium 3.6, Chloride 110 H, Carbon Dioxide 31.0, Anion Gap 2 L, BUN 25 H, Creatinine 0.78, Estim Creat Clear Calc 31.19, Est GFR (MDRD) Af Amer 90, Est GFR (MDRD) Non-Af 75, BUN/Creatinine Ratio 32.1 H, Glucose 112 H, Calcium 9.3, Iron 76, TIBC 295, Iron Saturation 25.8, Ferritin 17 06/28/23 15:08: PT Cancelled, INR Cancelled, APTT Cancelled 06/28/23 15:44: Urine Color Yellow, Urine Clarity Clear, Urine pH 6.5, Ur Specific [place] 1.020, Urine Protein Negative, Urine Glucose (UA) Normal, Urine Ketones Negative, Urine Occult Blood Negative, Urine Nitrite Negative, Urine Bilirubin Negative, Urine Urobilinogen Normal, Ur Leukocyte Esterase Negative, Urine RBC 0 SEEN, Urine WBC 0-5 SEEN, Ur Squamous Epith Cells 0 SEEN, Urine Bacteria RARE, Urine Mucus 0 SEEN 06/28/23 16:01: PT 14.4, INR 1.1, APTT 26.2 06/28/23 20:35: Hgb 7.7 L, Hct 24.2 L 06/29/23 02:10: WBC 7.9, RBC 2.34 L, Hgb Cancelled 06/29/23 02:10: Hgb 7.7 L, Hct Cancelled 06/29/23 02:10: Hct 24.0 L, MCV 102.6 H, MCH 32.9 H, MCHC 32.1, RDW Std Deviation 54.0 H, RDW Coeff of [place] 14.7 H, Plt Count 223, MPV 11.3, Immature Gran % (Auto) 0.400, Neut % (Auto) 70.9 H, Lymph % (Auto) 17.7 L, [place] % (Auto) 7.6, Eos % (Auto) 2.8, Baso % (Auto) 0.6, Absolute Neuts (auto) 5.6, Absolute Lymphs (auto) 1.39, Nucleated RBC % 0, Diff Path Review Cancelled, Sodium 145, Potassium 3.4 L, Chloride 111 H, Carbon Dioxide 31.0, Anion Gap 3 L, BUN 16, Creatinine 0.81, Estim Creat Clear Calc 37.14, Est GFR (MDRD) Af Amer 86, Est GFR (MDRD) Non-Af 71, BUN/Creatinine Ratio 19.7, Glucose 97, Calcium 8.2 L, Phosphorus 3.5, Magnesium 2.1, Total Bilirubin 0.40, AST 13 L, ALT 17, Alkaline Phosphatase 47, Total Protein 5.5 L, Albumin 2.7 L, Globulin 2.8, Albumin/Globulin Ratio 1.0 Micro: Microbiology 06/28/23 17:06 Stool Stool Occult Blood (CAIT) - Final Radiography Diagnostic Testing: Radiology Impression Abdomen/Pelvis CT 06/28/23 14:28 IMPRESSION: No acute abnormalities in the abdomen or pelvis. Extensive diverticulosis. Multilevel grade 1 spondylolisthesis of the lumbar spine. Electronically Signed: Mann Montgomery MD at 16:54 EDT , Chest X-Ray 06/28/23 14:29 IMPRESSION: No acute radiographic abnormalities. Chronic lung changes. Electronically Signed: Mann Montgomery MD at 16:50 EDT , Physical Exam Narrative General: Alert, oriented, no apparent distress HEENT: Atraumatic, normocephalic Eyes: Anicteric, normal conjunctiva, extraocular movements grossly intact Neck: Supple Respiratory: Clear to auscultation bilaterally, normal respiratory effort Cardiovascular: Regular rate and rhythm GI: Soft, nontender, nondistended Extremities: No edema Musculoskeletal: Moving all extremities Neuro: No overt focal neurological deficits Skin: No rashes appreciated Psych: Cooperative Assessment & Plan Assessment/Plan (1) Anemia: (2) Acute upper gastrointestinal bleeding: (3) Esophageal cancer: PLAN: Plan Melena -Suspect upper GI bleed with history -EGD performed on 03/15/2023 and patient was found to have Young's esophagus, esophageal tumor which was biopsied, multiple oozing duodenal ulcers that were injected and 1 oozing duodenal ulcer with a visible vessel that was treated with heater probe -Biopsy did reveal a minute focus of well-differentiated invasive adenocarcinoma in the background of high-grade dysplasia as well as focal intestinal metaplasia in the esophagus consistent with Young's esophagus -Patient did not follow-up with Dr. Forrester as recommended--> they did try to call the office and were told that the earliest appointment was September and elected not to follow-up due to the wait -Start Protonix drip -Hold aspirin -Clear liquids now with n.p.o. after midnight -Consult GI as patient will likely require repeat endoscopy -06/29: Hgb stable, NPO, protonix, GI c/s Acute on chronic anemia -It appears hemoglobin has been running between 9 and 10 -Hemoglobin on presentation was 8.3 and patient reporting dark tarry stools -Hold home aspirin -Every 6 hours hemoglobin -Transfuse for precipitous drop or hemoglobin less than 7 -Check iron studies -06/29: Hemoglobin stable at this time, continue to trend, GI consult Esophageal cancer/Young's esophagus -Biopsy did reveal a minute focus of well-differentiated invasive adenocarcinoma in the background of high-grade dysplasia as well as focal intestinal metaplasia in the esophagus consistent with Young's esophagus -We will likely need repeat EGD and further discussion -Attempted 3 times to get in contact with Dr. Forrester however was not able to contact him--> we will need to discuss further -06/29: GI consult pending Chronic hypoxic respiratory failure secondary to COPD/SAMANTHA -Patient is on 4 L during the day and wears BiPAP with 1 L nocturnally -Patient is currently on baseline oxygen -Continue home inhalers-as needed albuterol -06/29: 100% on 4 L O2 this a.m., is at her home, continue inhalers Hypertension -Continue home isosorbide mononitrate -continue home ramipril Hyperlipidemia -Continue home atorvastatin Depression -Continue paroxetine History of tobacco abuse -Remote -Continue ongoing cessation DVT prophylaxis -SCDs -Chemoprophylaxis contraindicated due to GI bleeding CODE STATUS -DNR CCA with no intubation as per discussion with patient while her daughter was at the bedside in the emergency department Time spent in the patient's overall evaluation,decision-making process, review of diagnostic data, adjustment of management, discussion with other providers, nursing nursing and ancillary staff involved in patient's care documentation, 40 minutes Charges/Coding Visit Charges Inpatient E&M: 34874 Subs Hosp L2
[2023-06-29] MEDS: Potassium Chloride Oral Tablet 20 MEQ 40 MEQ PO (08:35)
[2023-06-29] MEDS: Lactated Ringers 1,000 ML 75 ML IV (10:34)
--- NOTE | 2023-06-29 11:10 | CASEMGMT ---
DIANE SAUL Discharge Planning Assessment: Face to Face with patient for initial transition planning/care coordination assessment. DIANE SAUL introduced self and role at [facility], pt voices understanding and is agreeable to participating in assessment. Pt is alert and answering questions appropriately. Care providers, pharmacy,?and demographics verified. ? Admitting dx: UGI bleed PCP: Christine Specialists: Rufino (pulmonary) Preferred Pharmacy: [facility] Insurance: [facility] Prescription Benefit:?yes Living Will/HPOA: yes, HPOA daughter Piper Peña. Noted documents were not present in EMR. Notified pt and requested documents be brought in to [facility] for scanning. Pt expressed understanding. LNOK: daughter Piper Living Arrangements: Pt lives alone in a two story home with a FFSU and two steps to enter w/handrail. Pt states she is independent with ADLs including self care and household tasks. Transportation: Pt's daughter transports her as needed. DME: shower chair, raised toilet seat, cane, walker, O2 at 4l/min from [employer], and bipap with 1l/min bled in at [facility]. Pt states she has an Inogen for portability. Requested that her daughter bring this in at discharge. Pt states she did have it in her room but states he daughter must have taken it home. Pt expressed understanding of need for this to be brought back in at [place]. HHC: [facility] HH in the past SNF: pt denies any previous SNF stays ? Plan: Pt plans to return home at discharge with the support of her daughter. Will follow for any additional needs following GI w/u and determined plan of care. Discussed f/u after March, admission and pt states she attempted to get an appointment with Dr. Forrester's office but was told there were not any appointments available until September. This DIANE SAUL contacted Dr. Forrester's office to discuss f/u appointment and left voicemail message requesting return call. Will continue to follow and assist with DC needs as plan of care is determined. Katrina Hightower RN CM
[2023-06-29 14:21] LABS: Hematocrit 26.1 % (37-47); Hemoglobin 8.2 g/dL (12.0-15.0)
--- NOTE | 2023-06-29 14:58 | EX.PCM.CON.G ---
HPI Consult Data Date of Consult: 06/29/23 HPI Narrative Reason for Consultation: Melena HPI Narrative: ZAHIDA FRYE, is a 82 F who presents with multiple episodes of melanotic stool. She presented to the emergency department at [facility] on 06/28/2023 due to melena, worsening shortness of breath and fatigue. Patient noted 2 episodes of black tarry stools since yesterday. She had admission in March 2023 for an acute GI bleed at which time she was found to have peptic ulcer disease and an esophageal mass. Dr. Forrester performed the EGD and cauterized and treated duodenal ulcers that were found at that time and a biopsy was taken. 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 The patient was instructed to follow-up with the clinic. However when she called to make an appointment they were scheduling out to September so she did not follow-up. Vital signs on presentation were unremarkable. CBC showed normal white count however hemoglobin was 8.3 which is down from the 9-10 range she had been running. Her platelet count was normal. Coags were normal. Chemistry panel was overall unremarkable however BUN was elevated at 25 in relationship to her serum creatinine which was 0.78. Her urine is unremarkable. CT of the abdomen pelvis was unremarkable other than multilevel grade 1 spondylolisthesis in the lumbar spine and extensive diverticulosis. Chest x-ray showed findings consistent with chronic emphysematous changes and hyperinflation but was otherwise unremarkable for any acute findings. [facility] Medical History (Updated 06/28/23 @ 20:[address] Jonelle Orourke, DO) Anxiety Anxiety and depression Atherosclerotic heart disease of [place] coronary artery without angina pectoris BiPAP (biphasic positive airway pressure) dependence Chronic respiratory failure with hypoxia, on home O2 therapy CKD (chronic kidney disease) Closed right hip fracture COPD (chronic obstructive pulmonary disease) Depression Duodenal ulcer Dyspnea on exertion Emphysema lung Essential hypertension Former smoker Former tobacco use GI bleed Hypertension Nonrheumatic mitral valve regurgitation On home oxygen therapy Pure hypercholesterolemia Symptomatic anemia Weakness Home Medications atorvastatin 40 mg tablet 40 mg PO QHS CHOLESTEROL 12/28/17 [History Last Taken 03/13/23] isosorbide mononitrate 30 mg tablet,extended release 24 hr 30 mg PO DAILY HEART/CHEST PAIN 12/28/17 [History Last Taken 03/14/23] multivitamin 1 tab PO DAILY SUPPLEMENT 12/28/17 [History Last Taken 03/14/23] paroxetine HCl 37.5 mg tablet,extended release 24 hr 37.5 mg PO DAILY MOOD 12/28/17 [History Last Taken 03/14/23] acidophilus 100 million cell-pectin, citrus 10 mg capsule 1 cap PO DAILY GUT HEALTH 11/12/22 [History Last Taken 03/14/23] albuterol sulfate 90 mcg/actuation aerosol inhaler 1 inh inhalation Q4H PRN SHORTNESS OF BREATH 11/12/22 [History Last Taken Unknown] ascorbic acid (vitamin C) 100 mg tablet (Vitamin C) 100 mg PO DAILY SUPPLEMENT 11/12/22 [History Last Taken 03/14/23] calcium carbonate 500 mg-vitamin D3 3.125 mcg (125 unit) tablet 1 tab PO DAILY SUPPLEMENT 11/12/22 [History Last Taken 03/14/23] cranberry fruit concentrate 250 mg chewable tablet (Azo Cranberry) 500 mg PO DAILY UTI PREVENTION 11/12/22 [History Last Taken 03/14/23] fluticasone fur. 100 mcg-umeclid 62.5 mcg-vilant 25 mcg inhalat.powder (Trelegy Ellipta) 1 inh inhalation DAILY COPD 11/12/22 [History Last Taken 03/14/23] omega-3 fatty acids 1,000 mg capsule 1,000 mg PO DAILY SUPPLEMENT 11/12/22 [History Last Taken 03/14/23] ramipril 2.5 mg capsule 2.5 mg PO DAILY HEART 11/12/22 [History Last Taken 03/14/23] roflumilast 500 mcg tablet 500 mcg PO DAILY COPD 11/12/22 [History Last Taken 03/14/23] vitamin B complex 1 cap PO DAILY SUPPLEMENT 11/12/22 [History Last Taken 03/14/23] acetaminophen 325 mg tablet 650 mg (2 x 325 mg) PO Q6H PRN PRN Pain 1-10 Or Fever >100.7 #0 tabs 11/17/22 [Rx Last Taken Unknown] tramadol 50 mg tablet 50 mg PO Q6H PRN pain #40 tabs 03/15/23 [Rx Last Taken Unknown] aspirin 81 mg tablet,delayed release (Adult Aspirin Regimen) 81 mg PO DAILY heart 06/24/23 [History Last Taken Unknown] docusate sodium 50 mg capsule (Stool Softener) 50 mg PO DAILY stools 06/24/23 [History Last Taken Unknown] echinacea 380 mg capsule 380 mg PO DAILY dietary suplement 06/24/23 [History Last Taken Unknown] iron, carbonyl 18 mg iron chewable tablet (Ferretts Carbonyl Iron) 9 mg PO DAILY dietary suplement 06/24/23 [History Last Taken Unknown] calcium carbonate 600 mg-vitamin D3 5 mcg (200 unit) tablet (Calcium 600 + D(3)) 1 tab PO DAILY supplement 06/28/23 [History Last Taken Unknown] Allergy/AdvReac Type Severity Reaction Status Date / Time cefaclor [From [facility]] Allergy Severe Hives Verified 06/28/23 18:08 Family History Father Myocardial infarction, Onset Age: 43 Brother Myocardial infarction, Onset Age: 52 Brother CAD (coronary artery disease) Surgical History (Updated 06/28/23 @ 20:[address] Jonelle Orourke DO) History of cholecystectomy History of esophagogastroduodenoscopy (EGD) Hx of tonsillectomy Social History Smoking Status: Former smoker alcohol intake: never substance use type: does not use ROS Constitutional Constitutional: Reports anorexia, change in weight, fatigue, malaise and weakness; Denies chills, fever(s), night sweats or other Eyes Eyes: Denies blurry vision, change in eye color, change in vision, discharge from eye(s), double vision, erythema, eye pain, loss of vision or other ENT HEENT: Denies abnormal hearing, dysphagia, ear pain, epistaxis, headache(s), hearing loss, nasal congestion, nasal discharge, post nasal drip, sinus pressure, sore throat or other Cardiovascular Cardiovascular: Denies chest pain, claudication, dyspnea on exertion, edema, lightheadedness, orthopnea, palpitations, paroxysmal nocturnal dyspnea, rapid heart rate, syncope or other Respiratory/Chest Respiratory/Chest: Reports shortness of breath at rest and shortness of breath with exertion; Denies cough, dyspnea, excessive phlegm production, hemoptysis, productive cough, wheezing or other Gastrointestinal Gastrointestinal: Reports abdominal pain and melena; Denies coffee ground emesis, constipation, diarrhea, dyspepsia, hematemesis, hematochezia, loose stools, nausea, vomiting or other Genitourinary Genitourinary: Denies burning urination, difficulty urinating, dysuria, hematuria, nocturia, urinary frequency, urinary hesitancy, urinary incontinence, urinary urgency or other Musculoskeletal Musculoskeletal: Reports back pain; Denies arthralgias, joint pain, joint stiffness, joint swelling, myalgias, neck pain or other Neurologic Neurologic: Denies abnormal gait, abnormal speech, confusion, disequilibrium, dizziness, focal weakness, headache(s), numbness, paresthesias, seizure-like activity, seizures, syncope, tingling, tremor(s) or other Psychiatric Psychiatric: Reports depression; Denies anxiety, homicidal ideation, suicidal ideation or other Endocrine Endocrinology: Denies change in body appearance, cold intolerance, excessive sweating, heat intolerance, polydipsia, polyuria or other Hematologic/Lymphatic Hematologic/Lymphatic: Reports anemia; Denies easy bleeding, easy bruising, lymphadenopathy or other Allergic/Immunologic Allergic/Immunologic: Denies rhinitis, hives, eczemia, asthma or other Physical Exam Narrative General: Alert, oriented, no apparent distress HEENT: Atraumatic, normocephalic Eyes: Anicteric, normal conjunctiva, extraocular movements grossly intact Neck: Supple Respiratory: Clear to auscultation bilaterally, normal respiratory effort Cardiovascular: Regular rate and rhythm GI: Soft, nontender, nondistended Extremities: No edema Musculoskeletal: Moving all extremities Neuro: No overt focal neurological deficits Skin: No rashes appreciated Psych: Cooperative Lab / Micro Data 06/29/23 14:15 06/29/23 02:10 Labs: Laboratory Results - last 24 hr 06/28/23 14:00: PT Cancelled, INR Cancelled, APTT Cancelled, Sodium 143, Potassium 3.6, Chloride 110 H, Carbon Dioxide 31.0, Anion Gap 2 L, BUN 25 H, Creatinine 0.78, Estim Creat Clear Calc 31.19, Est GFR (MDRD) Af Amer 90, Est GFR (MDRD) Non-Af 75, BUN/Creatinine Ratio 32.1 H, Glucose 112 H, Calcium 9.3, Iron 76, TIBC 295, Iron Saturation 25.8, Ferritin 17 06/28/23 15:08: PT Cancelled, INR Cancelled, APTT Cancelled 06/28/23 15:44: Urine Color Yellow, Urine Clarity Clear, Urine pH 6.5, Ur Specific [place] 1.020, Urine Protein Negative, Urine Glucose (UA) Normal, Urine Ketones Negative, Urine Occult Blood Negative, Urine Nitrite Negative, Urine Bilirubin Negative, Urine Urobilinogen Normal, Ur Leukocyte Esterase Negative, Urine RBC 0 SEEN, Urine WBC 0-5 SEEN, Ur Squamous Epith Cells 0 SEEN, Urine Bacteria RARE, Urine Mucus 0 SEEN 06/28/23 16:01: PT 14.4, INR 1.1, APTT 26.2 06/28/23 20:35: Hgb 7.7 L, Hct 24.2 L 06/29/23 02:10: WBC 7.9, RBC 2.34 L, Hgb Cancelled 06/29/23 02:10: Hgb 7.7 L, Hct Cancelled 06/29/23 02:10: Hct 24.0 L, MCV 102.6 H, MCH 32.9 H, MCHC 32.1, RDW Std Deviation 54.0 H, RDW Coeff of [place] 14.7 H, Plt Count 223, MPV 11.3, Immature Gran % (Auto) 0.400, Neut % (Auto) 70.9 H, Lymph % (Auto) 17.7 L, [place] % (Auto) 7.6, Eos % (Auto) 2.8, Baso % (Auto) 0.6, Absolute Neuts (auto) 5.6, Absolute Lymphs (auto) 1.39, Nucleated RBC % 0, Diff Path Review Cancelled, Sodium 145, Potassium 3.4 L, Chloride 111 H, Carbon Dioxide 31.0, Anion Gap 3 L, BUN 16, Creatinine 0.81, Estim Creat Clear Calc 37.14, Est GFR (MDRD) Af Amer 86, Est GFR (MDRD) Non-Af 71, BUN/Creatinine Ratio 19.7, Glucose 97, Calcium 8.2 L, Phosphorus 3.5, Magnesium 2.1, Total Bilirubin 0.40, AST 13 L, ALT 17, Alkaline Phosphatase 47, Total Protein 5.5 L, Albumin 2.7 L, Globulin 2.8, Albumin/Globulin Ratio 1.0 06/29/23 14:15: Hgb 8.2 L, Hct 26.1 L Micro: Microbiology 06/28/23 17:06 Stool Stool Occult Blood (CAIT) - Final Radiology Impression Abdomen/Pelvis CT 06/28/23 14:28 IMPRESSION: No acute abnormalities in the abdomen or pelvis. Extensive diverticulosis. Multilevel grade 1 spondylolisthesis of the lumbar spine. Electronically Signed: Mann Montgomery MD at 16:54 EDT , Chest X-Ray 06/28/23 14:29 IMPRESSION: No acute radiographic abnormalities. Chronic lung changes. Electronically Signed: Mann Montgomery MD at 16:50 EDT , Assessment & Plan Assessment/Plan (1) Acute upper GI bleed: PLAN: Plan Acute upper GI bleed-most probably secondary to previous nonsteroidal anti-inflammatory use, patient will be admitted to PR, IV fluids will be administered, she will be given packed red blood cells if hemoglobin drops below 7, repeat H&H will be performed later today. Patient is on Protonix drip, plan is for EGD. Charges/Coding Visit Charges Inpatient E&M: 21601 Init Hosp L3
--- NOTE | 2023-06-29 15:45 | OP.EGD_ITS ---
Patient Name: Mehnaz Fox Procedure Date: 06/29/2023 2:55 PM Date of : 1940 Age: 82 Procedure: Upper GI endoscopy Indications: Iron deficiency anemia, Melena Providers: Lm Forrester DO Medicines: Monitored Anesthesia Care Complications: No immediate complications. Procedure: Pre-Anesthesia Assessment: - Prior to the procedure, a History and Physical was performed, and patient medications and allergies were reviewed. The patient is competent. The risks and benefits of the procedure and the sedation options and risks were discussed with the patient. All questions were answered and informed consent was obtained. Patient identification and proposed procedure were verified by the physician in the pre-procedure area. Mental Status Examination: alert and oriented. Airway Examination: normal oropharyngeal airway and neck mobility. Respiratory Examination: clear to auscultation. CV Examination: normal. Prophylactic Antibiotics: The patient does not require prophylactic antibiotics. Prior Anticoagulants: The patient has taken no anticoagulant or antiplatelet agents. ASA Grade Assessment: II - A patient with mild systemic disease. After reviewing the risks and benefits, the patient was deemed in satisfactory condition to undergo the procedure. The anesthesia plan was to use monitored anesthesia care (MAC). Immediately prior to administration of medications, the patient was re-assessed for adequacy to receive sedatives. The heart rate, respiratory rate, oxygen saturations, blood pressure, adequacy of pulmonary ventilation, and response to care were monitored throughout the procedure. The physical status of the patient was re-assessed after the procedure. After obtaining informed consent, the endoscope was passed under direct vision. Throughout the procedure, the patient's blood pressure, pulse, and oxygen saturations were monitored continuously. The Endoscope was introduced through the mouth, and advanced to the second part of duodenum. The upper GI endoscopy was accomplished without difficulty. The patient tolerated the procedure well. Scope In: 3:13:05 PM Scope Out: 3:29:31 PM Total Procedure Duration Time 0 hours 16 minutes 26 seconds Findings: A medium-sized, ulcerating mass with bleeding and stigmata of recent bleeding was found at the gastroesophageal junction, 38 cm from the incisors. The mass was partially obstructing and not circumferential. Area was successfully injected with 5 mL of a 0.1 mg/mL solution of epinephrine for drug delivery. Coagulation for hemostasis using argon plasma at 0.3 liters/minute and 30 avila was successful. Estimated blood loss was minimal. The entire examined stomach was normal. The second portion of the duodenum was normal. Impression: - Partially obstructing, malignant esophageal tumor was found at the gastroesophageal junction. Injected. Treated with argon plasma coagulation (APC). - Normal stomach. - Normal second portion of the duodenum. - No specimens collected. Recommendation: - [facility]. - Clear liquid diet. - Continue present medications. Procedure Code(s): --- Professional --- 76411, Esophagogastroduodenoscopy, flexible, transoral; with control of bleeding, any method 50048, 59, Esophagogastroduodenoscopy, flexible, transoral; with directed submucosal injection(s), any substance CPT copyright 2021 [employer]. All rights reserved. The codes documented in this report are preliminary and upon box machine operator review may be revised to meet current compliance requirements. Lm Forrester DO 06/29/2023 3:44:37 PM This report has been signed electronically. Number of Addenda: 0 Note Initiated On: 06/29/2023 2:55 PM
--- NOTE | 2023-06-29 15:45 | OP.CCLET_ITS ---
06/29/2023 Nicci King [address] [place] [address] Re : Upper GI endoscopy procedure for Mehnaz Buenoaver Dear Dr. King This procedure was performed on Thursday, June 29, 2023. My impressions and recommendations are as follows: Impressions : - Partially obstructing, malignant esophageal tumor was found at the gastroesophageal junction. Injected. Treated with argon plasma coagulation (APC). - Normal stomach. - Normal second portion of the duodenum. - No specimens collected. Recommendations : - [facility]. - Clear liquid diet. - Continue present medications. My findings are described in the full procedure note, which is enclosed. If I can be of further assistance, please feel free to contact me at . Sincerely, Lm Forrester, 06/29/2023 3:44:37 PM This report has been signed electronically.
[2023-06-29] MEDS: PARoxetine CR 12.5 MG Tablet 37.5 MG PO (16:53)
[2023-06-29] MEDS: Ferrous Sulfate 325 MG Tablet PO (16:55)
[2023-06-29] MEDS: Isosorbide Mononitrate 30 MG Tablet PO (16:56)
[2023-06-29] MEDS: Calcium Carb/Vitamin D 1 TABLET Tablet PO (16:56)
[2023-06-29] MEDS: Ramipril 2.5 MG Capsule PO (16:56)
[2023-06-29] MEDS: Atorvastatin Calcium 40 MG Tablet PO (20:13)
[2023-06-30] MEDS: Lactated Ringers 1,000 ML 75 ML IV (01:54)
[2023-06-30] MEDS: Pantoprazole Sodium 80 MG in 0.9% Normal Saline (100mL Bag) 80 ML 10 MG CONT INF (01:56)
[2023-06-30 02:00] VITALS: BP 103/55; PULSE 86; RESP 16; TEMP 36.6; O2SAT 98
[2023-06-30] MEDS: Acetaminophen 325 MG Tablet 650 MG PO (04:42)
[2023-06-30 07:03] LABS: Absolute Lymphocyte Count 0.66 X10^3/uL (0.83-4.51); Absolute Neutrophil Count 6.7 X10^3/uL (2.0-7.7); Basophil# 0.04 X10^3/uL; Basophil% 0.5 % (0-1); Eosinophil# 0.17 X10^3/uL; Hematocrit 23.7 % (37-47); Hemoglobin 7.4 g/dL (12.0-15.0); Lymphocyte # 0.66 X10^3/ul (0.83-4.51); Lymphocyte % 7.9 % (19-41); Mean Corp Hgb Conc 31.2 g/dL (32-36); Mean Corpuscular Hgb 32.9 pg (27.0-32.0); Mean Corpuscular Volume 105.3 fL (81-99); Mean Platelet Vol. 11.3 fl (6.2-12.0); Monocyte# 0.69 X10^3/uL; Monocyte% 8.3 % (0-10); NRBC Flagged by Analyzer 0 % (0-5); Neutrophil # 6.72 X10^3/uL (2.7-7.7); Neutrophil % 80.9 % (47-70); Platelet Count 209 K/mm3 (150-450); RBC Distribution Width SD 57.2 fl (35.1-43.9); Red Blood Count 2.25 M/mm3 (4.2-5.4); White Blood Count 8.3 K/mm3 (4.4-11.0)
[2023-06-30] MEDS: Budesonide Respules 0.5 MG/2 ML AMPUL.NEB. INHALATION (07:12)
[2023-06-30] MEDS: Ipratropium/Albuterol Sulfate 3 ML AMPUL.NEB INHALATION ×2 (07:12→13:15)
--- NOTE | 2023-06-30 07:17 | PN.GI_ITS ---
Subjective Subjective Patient underwent upper endoscopy yesterday for an acute upper GI bleed. She was covered to have esophageal mass that was identified as having invasive adenocarcinoma. Patient has a follow-up visit with oncology. Objective Data Objective Data Vital Signs: Vital Signs Temp Pulse Resp BP Pulse Ox O2 Del Method O2 Flow Rate 98.0 F 86 18 146/86 H 100 Nasal Cannula 4 06/30/23 16:26 06/30/23 16:26 06/30/23 16:26 06/30/23 16:26 06/30/23 16:26 06/30/23 16:26 06/30/23 16:26 Oxygen Flow Rate (L/min) 4 Oxygen Delivery Method Nasal Cannula Weight: 105 lb 13.15 oz Body Mass Index (BMI) 20.6 Intake & Output: Intake and Output for Last 24 Hours 06/28/23 06/29/23 06/30/23 23:59 23:59 23:59 Intake Total 35 / 35 2128.25 / 2128.25 90 / 90 Output Total 1250 / 1250 Balance 35 / 35 878.25 / 878.25 90 / 90 Medical Nutrition Assessment Dietitian: Malnutrition Criteria Met Start: 06/29/23 15:01 Freq: Status: Active Protocol: Document 06/29/23 15:01 RMA (Rec: 06/29/23 15:01 RMA [id number]) Nutrition Malnutrition Evidence of Malnutrition Exists Yes Malnutrition (moderate): Chronic Evidenced By Suboptimal Energy Intake ( Moderate),Weight Loss ( Moderate),Physical Changes ( Moderate) Intake Problem Inadequate Oral Intake Etiology related to altered GI function Signs/Symptoms as evidenced by NPO Status Active Problem Clinical Problem Chronic Disease or Condition Related Malnutrition Etiology Moderate pro-joel malnutrition in the context of chronic disease and debility related to inadequate oral intake and malignant disease/increased energy expenditure Signs/Symptoms as evidenced by moderate muscle wasting noted in the clavicle, orbitals and temporal region; unintentional weight loss~14% x 12 months; BMI 20.7; PO meeting less than 75% estimated nutrition needs x past 6-12 months Status Active Problem Recommendation Dietitian Recommendations/Changes Recommend advance diet as tolerated to Regular. Add PO ensure clear and ensure plus high protein(lucio) as diet advanced. May need to consider enteral nutrition support given finding of esophageal cancer-- consult RD for enteral nutrition support management as indicated. Lab / Micro Data 06/30/23 06:28 06/30/23 06:28 Labs: Laboratory Results - last 24 hr 06/30/23 06:28: WBC 8.3, RBC 2.25 L, Hgb 7.4 L, Hct 23.7 L, MCV 105.3 H, MCH 32.9 H, MCHC 31.2 L, RDW Std Deviation 57.2 H, RDW Coeff of [place] 15.0 H, Plt Count 209, MPV 11.3, Immature Gran % (Auto) 0.400, Neut % (Auto) 80.9 H, Lymph % (Auto) 7.9 L, [place] % (Auto) 8.3, Eos % (Auto) 2.0, Baso % (Auto) 0.5, Absolute N euts (auto) 6.7, Absolute Lymphs (auto) 0.66 L, Nucleated RBC % 0, Sodium 144, Potassium 4.0, Chloride 112 H, Carbon Dioxide 29.0, Anion Gap 3 L, BUN 10, Creatinine 0.75, Estim Creat Clear Calc 30.08, Est GFR (MDRD) Af Amer 95, Est GFR (MDRD) Non-Af 78, BUN/Creatinine Ratio 13.4, Glucose 105, Calcium 8.1 L Micro: Microbiology 06/28/23 17:06 Stool Stool Occult Blood (CAIT) - Final Physical Exam Narrative General: Alert, oriented, no apparent distress HEENT: Atraumatic, normocephalic Eyes: Anicteric, normal conjunctiva, extraocular movements grossly intact Neck: Supple Respiratory: Clear to auscultation bilaterally, normal respiratory effort Cardiovascular: Regular rate and rhythm GI: Soft, nontender, nondistended Extremities: No edema Musculoskeletal: Moving all extremities Neuro: No overt focal neurological deficits Skin: No rashes appreciated Psych: Cooperative Assessment & Plan Assessment/Plan (1) Anemia: (2) Acute upper gastrointestinal bleeding: (3) Esophageal cancer: PLAN: Plan Esophageal cancer/Young's esophagus -Biopsy did reveal a minute focus of well-differentiated invasive adenocarcinoma in the background of high-grade dysplasia as well as focal intestinal metaplasia in the esophagus consistent with Young's esophagus -Bleeding was stopped endoscopically. She will need to follow-up with oncology. I explained to her she may need a stent in the future due to narrowing at the GE junction. Charges/Coding Visit Charges Inpatient E&M: 22937 Subs Hosp L3
[2023-06-30 07:28] LABS: Anion Gap 3 (5-15); BUN 10 mg/dL (7-18); BUN/Creat Ratio 13.4 RATIO (10-20); Calcium,Total 8.1 mg/dL (8.5-10.1); Chloride 112 mmol/L (98-107); Creatinine, Serum 0.75 mg/dL (0.55-1.02); EST Glomerular Filtration Rate 78 mL/min (>60); Est Glom Filt Rate - Afr Amer 95 mL/min (>60); Estimated Creatinine Clearance 30.08 ml/min; Glucose 105 mg/dL (74-106); Sodium Level 144 mmol/L (136-145)
[2023-06-30 07:29] VITALS: PULSE 82; RESP 20; O2SAT 96
[2023-06-30 08:00] VITALS: BP 125/55; PULSE 86; RESP 18; TEMP 36.6; O2SAT 100
--- NOTE | 2023-06-30 11:53 | DS.PCM_ITS ---
Providers Date of Admission: 06/28/23 Date of Discharge: 06/30/23 Primary Care Physician: Dr. Nicci King, Consultations 06/28/23 19:48 Consult: Gastroenterology Routine Consulting Provider: [facility] Reason for Consult: GI bleed EMERGENT Consult: No MD Notified: Yes Date Notified: 06/28/23 Time Notified: 20:47 Method of Notification: Text Reason For Visit: UGIB Diagnosis Discharge Diagnosis (1) Acute upper GI bleed: Status: Resolved Code(s): K92.2 - Gastrointestinal hemorrhage, unspecified Plan -Melena- 2/2 bleeding esophageal mass -Acute on chronic anemia -Esophageal cancer/Young's esophagus -Chronic hypoxic respiratory failure secondary to COPD/SAMANTHA -Hypertension -Depression -History of tobacco abuse -Remote Medications at Discharge Home Medications atorvastatin 40 mg tablet 40 mg PO QHS CHOLESTEROL 12/28/17 isosorbide mononitrate 30 mg tablet,extended release 24 hr 30 mg PO DAILY HEART/CHEST PAIN 12/28/17 multivitamin 1 tab PO DAILY SUPPLEMENT 12/28/17 paroxetine HCl 37.5 mg tablet,extended release 24 hr 37.5 mg PO DAILY MOOD 12/28/17 acidophilus 100 million cell-pectin, citrus 10 mg capsule 1 cap PO DAILY GUT HEALTH 11/12/22 albuterol sulfate 90 mcg/actuation aerosol inhaler 1 inh inhalation Q4H PRN SHORTNESS OF BREATH 11/12/22 ascorbic acid (vitamin C) 100 mg tablet (Vitamin C) 100 mg PO DAILY SUPPLEMENT 11/12/22 calcium carbonate 500 mg-vitamin D3 3.125 mcg (125 unit) tablet 1 tab PO DAILY SUPPLEMENT 11/12/22 cranberry fruit concentrate 250 mg chewable tablet (Azo Cranberry) 500 mg PO DAILY UTI PREVENTION 11/12/22 fluticasone fur. 100 mcg-umeclid 62.5 mcg-vilant 25 mcg inhalat.powder (Trelegy Ellipta) 1 inh inhalation DAILY COPD 11/12/22 omega-3 fatty acids 1,000 mg capsule 1,000 mg PO DAILY SUPPLEMENT 11/12/22 ramipril 2.5 mg capsule 2.5 mg PO DAILY HEART 11/12/22 roflumilast 500 mcg tablet 500 mcg PO DAILY COPD 11/12/22 vitamin B complex 1 cap PO DAILY SUPPLEMENT 11/12/22 acetaminophen 325 mg tablet 650 mg (2 x 325 mg) PO Q6H PRN PRN Pain 1-10 Or Fever >100.7 #0 tabs 11/17/22 tramadol 50 mg tablet 50 mg PO Q6H PRN pain #40 tabs 03/15/23 aspirin 81 mg tablet,delayed release (Adult Aspirin Regimen) 81 mg PO DAILY heart 06/24/23 docusate sodium 50 mg capsule (Stool Softener) 50 mg PO DAILY stools 06/24/23 echinacea 380 mg capsule 380 mg PO DAILY dietary suplement 06/24/23 iron, carbonyl 18 mg iron chewable tablet (Ferretts Carbonyl Iron) 9 mg PO DAILY dietary suplement 06/24/23 calcium carbonate 600 mg-vitamin D3 5 mcg (200 unit) tablet (Calcium 600 + D(3)) 1 tab PO DAILY supplement 06/28/23 pantoprazole 40 mg tablet,delayed release 40 mg PO DAILY #30 tabs 06/30/23 Hospital Course Procedures EGD Summary of Care Provided Minutes Spent on Discharge: 35 Hospital Course: 82-year-old female history of CKD, COPD, anxiety presented to [facility] 06[facility]28/2023 with increasing shortness of breath and fatigue as well as melena with 2 episodes. Had admission in March 2023 for acute GI bleed and was found to have peptic ulcer disease and an esophageal mass. EGD with cauterization and biopsies. 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 There were attempts to reach out to patient per report and were unable to contact patient and patient did not make appointment in office given no appointments available until September so she was lost to follow-up. During this hospitalization she had repeat ED which showed partially obstructing malignant esophageal tumor at the GE junction which was injected and treated with argon asthma coagulation. GI discussed cancer diagnosis with patient and I discussed with oncologist on-call who obtained appointment for her July 05 at 10 AM in the office. Discussed with GI and patient okay to advance diet as tolerated and hold aspirin for 2 weeks. Advance diet and patient tolerated this and did well. Discharged home in stable condition with oncology follow-up. Discharge instructions as follows: -You are scheduled to follow-up with oncology this coming July 05 at [address] Duran -You will need to follow-up with Dr. Forrester with GI in his office upon discharg e. Please call his office to schedule your hospital follow-up appointment (ph. [phone]) -Please hold aspirin for 2 weeks, you will also be discharged on Protonix daily -Would recommend lab work (CBC) to check your hemoglobin in 2 to 3 days through your primary care physician's office. Please call their office upon discharge to obtain order for lab work. -Please call your primary care provider's office upon discharge to schedule a hospital follow up within 1 week. -For any concerning signs or symptoms please call 911 or proceed to the nearest emergency departmen Physical Exam Narrative General: Alert, oriented, no apparent distress HEENT: Atraumatic, normocephalic Eyes: Anicteric, normal conjunctiva, extraocular movements grossly intact Neck: Supple Respiratory: Clear to auscultation bilaterally, normal respiratory effort Cardiovascular: Regular rate and rhythm GI: Soft, nontender, nondistended Extremities: No edema Musculoskeletal: Moving all extremities Neuro: No overt focal neurological deficits Skin: No rashes appreciated Psych: Cooperative Medical Records Data Medical Nutrition Assessment Dietitian: Malnutrition Criteria Met Start: 06/29/23 15:01 Freq: Status: Active Protocol: Document 06/29/23 15:01 RMA (Rec: 06/29/23 15:01 RMA [id number]) Nutrition Malnutrition Evidence of Malnutrition Exists Yes Malnutrition (moderate): Chronic Evidenced By Suboptimal Energy Intake ( Moderate),Weight Loss ( Moderate),Physical Changes ( Moderate) Intake Problem Inadequate Oral Intake Etiology related to altered GI function Signs/Symptoms as evidenced by NPO Status Active Problem Clinical Problem Chronic Disease or Condition Related Malnutrition Etiology Moderate pro-joel malnutrition in the context of chronic disease and debility related to inadequate oral intake and malignant disease/increased energy expenditure Signs/Symptoms as evidenced by moderate muscle wasting noted in the clavicle, orbitals and temporal region; unintentional weight loss~14% x 12 months; BMI 20.7; PO meeting less than 75% estimated nutrition needs x past 6-12 months Status Active Problem Recommendation Dietitian Recommendations/Changes Recommend advance diet as tolerated to Regular. Add PO ensure clear and ensure plus high protein(lucio) as diet advanced. May need to consider enteral nutrition support given finding of esophageal cancer-- consult RD for enteral nutrition support management as indicated. Weight / BMI Weight Weight: 48 kg Body Mass Index (BMI) 20.6 ABG / Lab / Microbiology Data 06/30/23 06:28 06/30/23 06:28 Laboratory: Laboratory Results - last 24 hr 06/29/23 14:15: Hgb 8.2 L, Hct 26.1 L 06/30/23 06:28: WBC 8.3, RBC 2.25 L, Hgb 7.4 L, Hct 23.7 L, MCV 105.3 H, MCH 32.9 H, MCHC 31.2 L, RDW Std Deviation 57.2 H, RDW Coeff of Linette 15.0 H, Plt Count 209, MPV 11.3, Immature Gran % (Auto) 0.400, Neut % (Auto) 80.9 H, Lymph % (Auto) 7.9 L, Dickey % (Auto) 8.3, Eos % (Auto) 2.0, Baso % (Auto) 0.5, Absolute Neuts (auto) 6.7, Absolute Lymphs (auto) 0.66 L, Nucleated RBC % 0, Sodium 144, Potassium 4.0, Chloride 112 H, Carbon Dioxide 29.0, Anion Gap 3 L, BUN 10, Crea tinine 0.75, Estim Creat Clear Calc 30.08, Est GFR (MDRD) Af Amer 95, Est GFR (MDRD) Non-Af 78, BUN/Creatinine Ratio 13.4, Glucose 105, Calcium 8.1 L Microbiology: Microbiology 06/28/23 17:06 Stool Stool Occult Blood (CAIT) - Final D/C Instructions Discharge Diet: Light diet - advance as tolerated Meaningful Use Info Meaningful Use Diagnoses (Choose all that apply): None applicable Discharge Plan Admission Admit Date/Time: 06/28/23 17:36 Primary Reason for Your Visit: Dark stools Attending Provider: Leticia Barry Primary Care Provider: Nicci King Consulting Providers: Jonelle Orourke Instructions Patient Instructions: ED Upper GI Bleeding (Stable) Additional Instructions / Restrictions: DISCHARGE INSTRUCTIONS PLEASE READ *Please take this with you to your next doctors appointment* -You are scheduled to follow-up with oncology this coming July 05 at [address] Duran -You will need to follow-up with Dr. Forrester with GI in his office upon discharge. Please call his office to schedule your hospital follow-up appoi david (ph. [phone]) -Please hold aspirin for 2 weeks, you will also be discharged on Protonix daily -Would recommend lab work (CBC) to check your hemoglobin in 2 to 3 days through your primary care physician's office. Please call their office upon discharge to obtain order for lab work. -Please call your primary care provider's office upon discharge to schedule a hospital follow up within 1 week. -For any concerning signs or symptoms please call 911 or proceed to the nearest emergency department Discharge Orders/Prescriptions Prescriptions: New pantoprazole 40 mg Tablet,Delayed Release (Dr/Ec) 40 mg PO DAILY Qty: 30 0RF Continued echinacea 380 mg capsule 380 mg PO DAILY Rx Instructions: administer with meals Stool Softener 50 mg capsule 50 mg PO DAILY Ferretts Carbonyl Iron 18 mg iron tablet,chewable 9 mg PO DAILY multivitamin 1 EACH tablet 1 tab PO DAILY atorvastatin 40 MG tablet 40 mg PO QHS isosorbide mononitrate 30 MG tablet 30 mg PO DAILY paroxetine HCl 37.5 MG tablet extended release 24 hr 37.5 mg PO DAILY omega-3 fatty acids 1,000 mg Capsule 1,000 mg PO DAILY ramipril 2.5 mg Capsule 2.5 mg PO DAILY Vitamin C 100 mg Tablet 100 mg PO DAILY albuterol sulfate 90 mcg/actuation HFA aerosol inhaler 1 inh INHALATION Q4H PRN (Reason: SHORTNESS OF BREATH ) vitamin B complex Capsule 1 cap PO DAILY calcium carbonate-vitamin D3 500 mg-3.125 mcg (125 unit) Tablet 1 tab PO DAILY roflumilast 500 mcg tablet 500 mcg PO DAILY acidophilus-pectin, citrus 100 million cell-10 mg Capsule 1 cap PO DAILY Trelegy Ellipta 100-62.5-25 mcg blister with device 1 inh INHALATION DAILY Azo Cranberry 250 mg Tablet,Chewable 500 mg PO DAILY acetaminophen 325 mg Tablet 650 mg PO Q6H PRN PRN (Reason: Pain 1-10 Or Fever >100.7) Qty: 0 0RF tramadol 50 mg tablet 50 mg PO Q6H PRN (Reason: pain) Qty: 40 0RF Rx Instructions: ONE OR TWO EVERY SIX HOURS FOR PAIN, MAY TAKE WITH 650 MG TYLENOL IF YOU DESIRE calcium carbonate-vitamin D3 [Calcium 600 + D(3)] 600 mg-5 mcg (200 unit) tablet 1 tab PO DAILY Held aspirin [Adult Aspirin Regimen] 81 mg tablet,delayed release (DR/EC) 81 mg PO DAILY Hold Instructions: Resume on 07/14/23. Referrals / Follow Up: Nicci King DO [Primary Care Provider] - Within 1 Week Annie Duran MD [Med Staff - Active Staff] - 07/05/23 10:00 am Lm Forrester DO [Med Staff - Active Staff] - Disposition Disposition (needs filled in before D/C Order can be placed): Home, Self Care Charges/Coding Visit Charges Inpatient E&M: 32685 Disch Hosp >30min
[2023-06-30] MEDS: Isosorbide Mononitrate 30 MG Tablet PO (12:36)
[2023-06-30] MEDS: Ferrous Sulfate 325 MG Tablet PO (12:36)
[2023-06-30] MEDS: Calcium Carb/Vitamin D 1 TABLET Tablet PO (12:36)
[2023-06-30] MEDS: Ramipril 2.5 MG Capsule PO (12:37)
[2023-06-30] MEDS: Pantoprazole Sodium 40 MG Tablet PO (12:37)
--- NOTE | 2023-06-30 12:46 | CASEMGMT ---
Pt. has order in for discharge. RN CM in to pt. room to discuss needs at D/C. Pt. denies having needs at this time. Pt. had no further questions/concerns at this time.
[2023-06-30 13:54] VITALS: PULSE 82; RESP 17
[2023-06-30 16:26] VITALS: BP 146/86; PULSE 86; RESP 18; TEMP 36.7; O2SAT 100
== END 2023-06-30 17:30 | disposition home or self-care (01) | DRG 375 ==
LOC: ED 17:39 → MS3 18:05
PROVIDERS: Internal Medicine Gastroenterology; Admitting Provider Internal Medicine; Emergency Provider Emergency Medicine; PCP Internal Medicine; Visit Provider Internal Medicine
PROC: 0DJ08ZZ Inspection of Upper Intestinal Tract, Via Natural or Artificial Opening Endoscopic (ICD-10-PCS; CPT 43235; principal; 2023-06-29 14:40)
DX: C16.0 Malignant neoplasm of cardia (principal); E44.0 Moderate protein-calorie malnutrition; J96.11 Chronic respiratory failure with hypoxia; Z68.1 Body mass index [BMI] 19.9 or less, adult; K92.1 Melena; D64.9 Anemia, unspecified; I12.9 Hypertensive chronic kidney disease with stage 1 through stage 4 chronic kidney disease, or unspecified chronic kidney disease; N18.9 Chronic kidney disease, unspecified; F32.A Depression, unspecified; E78.5 Hyperlipidemia, unspecified; D50.9 Iron deficiency anemia, unspecified; K31.89 Other diseases of stomach and duodenum; G47.33 Obstructive sleep apnea (adult) (pediatric); I25.10 Atherosclerotic heart disease of native coronary artery without angina pectoris; Z87.891 Personal history of nicotine dependence; Z79.51 Long term (current) use of inhaled steroids; Z66 Do not resuscitate
CPT/HCPCS: 36415; 71046; 74177; 80048; 80053; 81001; 82274; 82728; 83540; 83550; 83735; 84100; 85014; 85018; 85025; 85610; 85730; 94640; 94668; 97162; 97166; 99284; J7120; Q9967; A4216; J2405; J3490

== ENCOUNTER 2023-09-01 11:17 | Outpatient (RCR) | payer MEDICARE, SELFPAY | END 2023-09-05 23:59 | LOC: NS 11:17 | PROVIDERS: PCP Internal Medicine; Visit Provider Student in an Organized Health Care Education/Training Program | DX: Z71.3 Dietary counseling and surveillance (principal); R63.4 Abnormal weight loss; C15.9 Malignant neoplasm of esophagus, unspecified ==

== ENCOUNTER 2023-09-10 10:30 | Emergency (ER) | payer MEDICARE, SELFPAY ==
[2023-09-10 10:32] VITALS: BP 120/66; PULSE 92; RESP 18; TEMP 36.7; O2SAT 97
--- NOTE | 2023-09-10 10:59 | RAD_ITS ---
HISTORY: fall. TECHNIQUE: XR Shoulder Min 2 Views. COMPARISON: None. FINDINGS: BONES : No acute fracture identified. Small chronic appearing well-corticated fragment at the inferior glenoid. Generalized osteopenia. JOINTS: No dislocation. Mild degenerative change. SOFT TISSUES: Patchy opacity in the left midlung likely inflammatory or infectious. RAD/Shoulder min 2 Views IMPRESSION: No acute fracture or dislocation identified in the left shoulder. Electronically Signed: Juliana Valles MD at 11:49 EST ,
--- NOTE | 2023-09-10 11:02 | EX.ED.DYSGE1 ---
HPI History of Present Illness Chief Complaint: Shortness of Breath Detail of Chief Complaint: Fall left shoulder injury. Informant: patient and family Onset/Context/Timing Onset: Yesterday Context: Sudden Onset Timing: Continuous Current Severity: Mild Maximum Severity: Mild Narrative Narrative: 82-year-old female history of esophageal CA with COPD on 4 L of oxygen. She underwent radiation therapy but is not a candidate for surgery or chemotherapy for esophageal CA. She had a prior GI bleed also from a duodenal ulcer and bleeding from the esophageal cancer. Basically yesterday was at home tripped and fell injuring her left shoulder and came in today. Also complained of generalized weakness. No vomiting. No diarrhea. No fever. She does not want anything for pain at this time. Prior similar symptoms: No Recent Illness/Hospitalization: Yes PFSH PFSH Medical History Anxiety Anxiety and depression Atherosclerotic heart disease of [place] coronary artery without angina pectoris BiPAP (biphasic positive airway pressure) dependence Chronic respiratory failure with hypoxia, on home O2 therapy CKD (chronic kidney disease) Closed right hip fracture COPD (chronic obstructive pulmonary disease) Depression Duodenal ulcer Dyspnea on exertion Emphysema lung Essential hypertension Former smoker Former tobacco use GI bleed Hypertension Iron deficiency anemia due to chronic blood loss Nonrheumatic mitral valve regurgitation On home oxygen therapy Pure hypercholesterolemia Symptomatic anemia Weakness Weight loss, non-intentional Home Medications atorvastatin 40 mg tablet 40 mg PO QHS CHOLESTEROL 12/28/17 [History Last Taken 03/13/23] isosorbide mononitrate 30 mg tablet,extended release 24 hr 30 mg PO DAILY HEART/CHEST PAIN 12/28/17 [History Last Taken 03/14/23] multivitamin 1 tab PO DAILY SUPPLEMENT 12/28/17 [History Last Taken 03/14/23] acidophilus 100 million cell-pectin, citrus 10 mg capsule 1 cap PO DAILY GUT HEALTH 11/12/22 [History Last Taken 03/14/23] albuterol sulfate 90 mcg/actuation aerosol inhaler 1 inh inhalation Q4H PRN SHORTNESS OF BREATH 11/12/22 [History Last Taken Unknown] ascorbic acid (vitamin C) 100 mg tablet (Vitamin C) 100 mg PO DAILY SUPPLEMENT 11/12/22 [History Last Taken 03/14/23] calcium carbonate 500 mg-vitamin D3 3.125 mcg (125 unit) tablet 1 tab PO DAILY SUPPLEMENT 11/12/22 [History Last Taken 03/14/23] cranberry fruit concentrate 250 mg chewable tablet (Azo Cranberry) 500 mg PO DAILY UTI PREVENTION 11/12/22 [History Last Taken 03/14/23] fluticasone fur. 100 mcg-umeclid 62.5 mcg-vilant 25 mcg inhalat.powder (Trelegy Ellipta) 1 inh inhalation DAILY COPD 11/12/22 [History Last Taken 03/14/23] omega-3 fatty acids 1,000 mg capsule 1,000 mg PO DAILY SUPPLEMENT 11/12/22 [History Last Taken 03/14/23] ramipril 2.5 mg capsule 2.5 mg PO DAILY HEART 11/12/22 [History Last Taken 03/14/23] roflumilast 500 mcg tablet 500 mcg PO DAILY COPD 11/12/22 [History Last Taken 03/14/23] vitamin B complex 1 cap PO DAILY SUPPLEMENT 11/12/22 [History Last Taken 03/14/23] acetaminophen 325 mg tablet 650 mg (2 x 325 mg) PO Q6H PRN PRN Pain 1-10 Or Fever >100.7 #0 tabs 11/17/22 [Rx Last Taken Unknown] tramadol 50 mg tablet 50 mg PO Q6H PRN pain #40 tabs 03/15/23 [Rx Last Taken Unknown] aspirin 81 mg tablet,delayed release (Adult Aspirin Regimen) 81 mg PO DAILY heart 06/24/23 [History Last Taken Unknown] docusate sodium 50 mg capsule (Stool Softener) 50 mg PO DAILY stools 06/24/23 [History Last Taken Unknown] echinacea 380 mg capsule 380 mg PO DAILY dietary suplement 06/24/23 [History Last Taken Unknown] pantoprazole 40 mg tablet,delayed release 40 mg PO DAILY #30 tabs 06/30/23 [Rx Last Taken Unknown] Disability Placard #1 ea 07/13/23 [Rx Last Taken Unknown] ondansetron HCl 4 mg tablet 4 mg PO TID PRN nausea and vomiting #30 tabs 07/13/23 [Rx Last Taken Unknown] lorazepam 0.5 mg tablet 0.5 mg PO Q8H PRN anxiety 08/02/23 [History Last Taken Unknown] sertraline 50 mg tablet 50 mg PO DAILY 08/02/23 [History Last Taken Unknown] MAGIC MOUTH WASH (BMX) 180 mL suspension 15 ml PO .qid PRN pain #180 mL 08/11/23 [Rx Last Taken Unknown] azithromycin 250 mg tablet (Zithromax) 250 mg PO DAILY 4 days #4 tabs 09/10/23 [Rx Last Taken Unknown] Allergy/AdvReac Type Severity Reaction Status Date / Time cefaclor [From [facility]] Allergy Severe Hives Verified 09/10/23 10:31 Family History Father Myocardial infarction, Onset Age: 43 Brother Myocardial infarction, Onset Age: 52 Brother CAD (coronary artery disease) Mother Pancreatic cancer Grandfather Colon cancer maternal Brother Cancer unknown blood cancer dx Surgical History History of cholecystectomy History of esophagogastroduodenoscopy (EGD) Hx of tonsillectomy Social History household members: none Smoking Status: Former smoker how long ago did patient quit smokin.5-3ppd >30 years; quit in 1994 alcohol intake: current alcohol intake frequency: 0-2 drinks per day Alcohol type: other details: 1 thierry daily substance use type: does not use 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 Review of Systems ROS Unobtainable: Denies due to encephalopathy Constitutional Constitutional ED: Denies chills or fever(s) Eyes Eyes: Denies blurry vision ENT ENT ED: Denies ear pain Cardiovascular Cardiovascular: Denies chest pain Respiratory/Chest Respiratory/Chest: Denies cough or dyspnea Gastrointestinal Gastrointestinal: Denies abdominal pain Genitourinary Genitourinary ED: Denies dysuria or hematuria Musculoskeletal Musculoskeletal: Denies arthralgias or back pain Integumentary Denies abscess or Abrasions Neurologic Neurologic: Denies headache(s) Psychiatric Psychiatric: Denies anxiety Endocrine Endocrinology: Denies cold intolerance Hematologic/Lymphatic Hematologic/Lymphatic: Reports none Allergic/Immunologic Allergic/Immunologic ED: Denies mouth swelling, tongue swelling or urticaria EXAM Physical Exam Narrative Exam Narrative: 82-year-old female. No acute distress. Vital signs stable afebrile. On her chronic 4 L of oxygen her pulse ox is 97%. She does not hypoxia. H EENT exam atraumatic. Pupils round reactive light. Neck nontender no JVD. Lungs clear to auscultation bilaterally. Chest wall and ribs nontender. Heart regular rhythm rate about 90 no murmur. Abdomen soft nontender. Pelvic girdle intact. She is able to flex and extend both knees and hips. Normal dorsi plantarflexion. She has normal title insurance examiner strength in both hands. No gross deformities. Mild tenderness left shoulder. No obvious dislocation. Left clavicle nontender. Back nontender. Kyphotic. No bruising. Neurologically she is awake and alert with no focal motor deficits. Answering questions following commands. Daughter present in room. Const Vital Signs: 09/10/23 10:32 09/10/23 11:23 09/10/23 11:31 Temperature 98.1 F 97.4 F L Temperature Source Temporal Temporal Pulse Rate 92 84 Respiratory Rate 18 16 Respiratory Effort Respiratory Depth Respiratory Pattern Blood Pressure 120/66 127/96 H Blood Pressure Mean 84 106 Pulse Ox 97 96 94 Oxygen Delivery Method Nasal Cannula Nasal Cannula Room Air Oxygen Flow Rate (L/min) 4 4 09/10/23 11:41 09/10/23 12:35 Temperature Temperature Source Pulse Rate 72 Respiratory Rate 16 Respiratory Effort Short of Breath Respiratory Depth Normal Respiratory Pattern Tachypnea Blood Pressure 129/71 H Blood Pressure Mean 90 Pulse Ox 95 Oxygen Delivery Method Nasal Cannula Oxygen Flow Rate (L/min) Positive well nourished and well developed; Negative for obese, cachectic, contractures or unkempt General Appearance ED: well developed and NAD; Negative for unkempt, cachectic, contractures, cyanotic, diaphoretic or pallor Nutritional Appearance: Negative for cachectic or obese HEENT Reports moist mucous membranes; Denies dry mucous membranes Negative for trauma or tenderness Mouth ED: No dry mucous membranes Mouth: No dry mucous membranes Eyes PERRL and EOMs intact bilaterally General Eye ED: Negative for pale conjunctiva, scleral icterus or other Neck no lymphadenopathy, supple and no JVD General: Negative for tenderness Lymph Lymphatic: Negative for other Chest Wall inspection of chest normal and palpation of chest normal Chest: Negative for other Resp normal respiratory effort and clear to auscultation bilaterally Effort and Inspection: Negative for retractions Auscultation: Negative for rales, rhonchi, wheezes or diminished lung sounds Cardio regular rate, regular rhythm, S1 normal heart sound, S2 normal heart sound and no murmurs Palpation: Negative for palpable S3 or palpable S4 Rate: Negative for bradycardia, tachycardic or other Rhythm: Negative for abnormal rhythm GI normal to inspection, nondistended, normoactive bowel sounds, non-tender, non-distended and no masses Inspection: Negative for abdominal distention Auscultation: normoactive bowel sounds Palpation: soft; Negative for tender or guarding Bladder / Kidney Exam: No other Back/Spine no CVA tenderness General Back: Negative for CVA tenderness Cervical Spine: Negative for cervical spine tenderness Thoracic Spine / Upper Back: Negative for thoracic spinal tenderness or paraspinal muscle tenderness Lumbar Spine / Lower Back: Negative for lumbar spinal tenderness Extremity Negative for normal to inspection Extremity Narrative: Tenderness left shoulder. No deformity. Decreased range of motion due to discomfort. She is unable to lift her left arm over her shoulder due to pain. The distal humerus, elbow, forearm wrist and hand are nontender with normal title insurance examiner strength. Right upper extremity is unremarkable. General Extremety ED: Yes tenderness; Negative for edema General Extremity: Negative for edema Neuro oriented x3 and CN's II-XII intact bilaterally Sensorium / Orientation: alert; Negative for orientation impaired, lethargic or stuporous Motor Exam: strength 5/5 throughout; Negative for general weakness or strength abnormal Psych mental status grossly normal Appearance: Negative for unkempt Attitude: No agitated Mood & Affect: Negative for depressed, anxious or tearful Skin no rashes or lesions noted and no wounds General Skin Exam: Negative for jaundice or pallor Lesions: No lesion noted Rashes: No rashes noted Trauma: Negative for abrasion Wounds: Negative for wounds noted MDM MDM MDM Narrative Medical decision making narrative: 82-year-old female esophageal CA and underwent radiation but is not a candidate for chemo or surgery. Fell last night complaint left shoulder discomfort. Generalized weakness. X-ray of the left shoulder and screening labs are being obtained. Repeat exam patient is doing well. Resting comfortably. Family at bedside. She has pain medication at home for shoulder. I went over the x-ray with him. Her labs were unremarkable and chronic and consistent with prior labs. The chest x-ray is questionable versus infiltrate or not. She has had a chronic cough. I will put her on Zithromax. She can follow-up with her primary care physician to ensure she is improving. Given a dose of Zithromax here prior to discharge. History & Record Review Discussion w/independent historian: Patient and Family Additional record(s) reviewed:: Prior inpatient record, Prior outpatient record, Prior ED visit, Prior labs and No prior records Lab Data Attestation: I reviewed the patient's lab results. Lab results narrative: CBC shows a white count 11.7. H&H 9.7 and 30.4. Patient is a chronic anemia. Platelets 194. Chemistries show a gap of 4. Normal BUN of 12 creatinine 0.7. Glucose 127. Labs: Laboratory Results - last 24 hr 09/10/23 11:17 WBC 11.7 H RBC 3.16 L Hgb 9.7 L Hct 30.4 L MCV 96.2 MCH 30.7 MCHC 31.9 L RDW Std Deviation 55.3 H RDW Coeff of Linette 15.6 H Plt Count 194 MPV 10.7 Immature Gran % (Auto) 0.400 Neut % (Auto) 90.8 H Lymph % (Auto) 1.5 L Garvin % (Auto) 6.9 Eos % (Auto) 0.3 Baso % (Auto) 0.1 Absolute Neuts (auto) 10.6 H Absolute Lymphs (auto) 0.18 L Nucleated RBC % 0 Sodium 140 Potassium 3.5 Chloride 105 Carbon Dioxide 31.0 Anion Gap 4 L BUN 12 Creatinine 0.72 Est GFR (MDRD) Af Amer 99 Est GFR (MDRD) Non-Af 82 BUN/Creatinine Ratio 16.7 Glucose 127 H Calcium 8.8 Radiography Chest X-Ray - ED: 1 View, Read by ED Physician, Read by Radiologist, Heart, Mediastinum, Bony Structures and Left Infiltrate Diagnostic Testing: Clinical Impression(s) from Imaging Studies Shoulder X-Ray 09/10/23 10:59 IMPRESSION: No acute fracture or dislocation identified in the left shoulder. Electronically Signed: Juliana Valles MD at 11:49 EST , Chest X-Ray 09/10/23 11:30 IMPRESSION: Increased opacity in the left midlung concerning for pneumonia or pneumonitis. Recommend follow-up to resolution. Electronically Signed: Juliana Valles MD at 11:48 EST , Left shoulder, 2 views, interpreted by myself and the radiologist shows no acute abnormality. No fracture or dislocation. Chest x-ray, single view, interpreted by myself shows increased linear density on the left which may be from radiation and pneumonitis versus a possible infiltrate. Rhythm Strip Rhythm Strip: Sinus Rhythm Rate: 87 Ectopy: PVC(s) EKG Initial EKG: Attestation: I personally reviewed and interpreted this EKG as follows: Interpretation: Sinus Rhythm and No Acute Injury Pattern Comments: Normal sinus rhythm rate 87 no acute signs of AL or ischemia. Occasional PVC. Prior EKG tracings: not available for review Discharge Plan Triage Chief Complaint: Shortness of Breath ED Provider: Wm Mendiola Dx/Rx/DC Orders Clinical Impression: Fall, History of COPD, Contusion of shoulder, left, Hx of esophageal malignancy Instructions: ED Contusion, Upper Extremity Prescriptions: New azithromycin [Zithromax] 250 mg tablet 250 mg PO DAILY 4 Days Qty: 4 0RF Rx Instructions: start on day 2 of therapy No Action echinacea 380 mg capsule 380 mg PO DAILY Rx Instructions: administer with meals Stool Softener 50 mg capsule 50 mg PO DAILY aspirin [Adult Aspirin Regimen] 81 mg tablet,delayed release (DR/EC) 81 mg PO DAILY Hold Instructions: Resume on 07/14/23. lorazepam 0.5 mg tablet 0.5 mg PO Q8H PRN (Reason: anxiety) Rx Instructions: taking 1/2 tab sertraline 50 mg tablet 50 mg PO DAILY ondansetron HCl 4 mg tablet 4 mg PO TID PRN (Reason: nausea and vomiting) Qty: 30 0RF Rx Instructions: take one tab up to TID PO prior to XRT and with nausea MAGIC MOUTH WASH (BMX) 180 mL suspension 15 ml PO .qid PRN (Reason: pain) Qty: 180 5RF Rx Instructions: diphenhydramine 12.5 mg/5 mL oral liquid 60 mL; aluminum-mag hydroxide-simethicone 400 mg-400 mg-40 mg/5 mL oral susp 60 mL; Lidocaine Viscous 2 % mucosal solution 60 mL; Per 180 mL multivitamin 1 EACH tablet 1 tab PO DAILY atorvastatin 40 MG tablet 40 mg PO QHS isosorbide mononitrate 30 MG tablet 30 mg PO DAILY omega-3 fatty acids 1,000 mg Capsule 1,000 mg PO DAILY ramipril 2.5 mg Capsule 2.5 mg PO DAILY Vitamin C 100 mg Tablet 100 mg PO DAILY albuterol sulfate 90 mcg/actuation HFA aerosol inhaler 1 inh INHALATION Q4H PRN (Reason: SHORTNESS OF BREATH ) vitamin B complex Capsule 1 cap PO DAILY calcium carbonate-vitamin D3 500 mg-3.125 mcg (125 unit) Tablet 1 tab PO DAILY roflumilast 500 mcg tablet 500 mcg PO DAILY acidophilus-pectin, citrus 100 million cell-10 mg Capsule 1 cap PO DAILY Trelegy Ellipta 100-62.5-25 mcg blister with device 1 inh INHALATION DAILY Azo Cranberry 250 mg Tablet,Chewable 500 mg PO DAILY acetaminophen 325 mg Tablet 650 mg PO Q6H PRN PRN (Reason: Pain 1-10 Or Fever >100.7) Qty: 0 0RF tramadol 50 mg tablet 50 mg PO Q6H PRN (Reason: pain) Qty: 40 0RF Rx Instructions: ONE OR TWO EVERY SIX HOURS FOR PAIN, MAY TAKE WITH 650 MG TYLENOL IF YOU DESIRE pantoprazole 40 mg Tablet,Delayed Release (Dr/Ec) 40 mg PO DAILY Qty: 30 0RF (DME) Disability Placard See Rx Instructions .Route .MEDSUPPLY Qty: 1 0RF Rx Instructions: Lifetime; No expiration Primary Care Provider: Nicci King Referrals: Nicci King DO [Primary Care Provider] - 3-5 Days Activity Restrictions/Additional Instructions: Zithromax 1 pill a day starting tomorrow. Follow-up with your primary care physician next week to ensure you are improving. The x-ray of your shoulder today did not show any broken bones.Ice to the shoulder. Use your pain medications at home. Disposition Disposition: Home, Self Care
[2023-09-10 11:23] VITALS: O2SAT 96
[2023-09-10 11:25] LABS: Absolute Lymphocyte Count 0.18 X10^3/uL (0.83-4.51); Absolute Neutrophil Count 10.6 X10^3/uL (2.0-7.7); Basophil# 0.01 X10^3/uL; Basophil% 0.1 % (0-1); Eosinophil# 0.03 X10^3/uL; Eosinophils% 0.3 % (0-5); Hematocrit 30.4 % (37-47); Hemoglobin 9.7 g/dL (12.0-15.0); Lymphocyte # 0.18 X10^3/ul (0.83-4.51); Lymphocyte % 1.5 % (19-41); Mean Corp Hgb Conc 31.9 g/dL (32-36); Mean Corpuscular Hgb 30.7 pg (27.0-32.0); Mean Corpuscular Volume 96.2 fL (81-99); Mean Platelet Vol. 10.7 fl (6.2-12.0); Monocyte# 0.81 X10^3/uL; Monocyte% 6.9 % (0-10); NRBC Flagged by Analyzer 0 % (0-5); Neutrophil # 10.58 X10^3/uL (2.7-7.7); Neutrophil % 90.8 % (47-70); POSITIVE DIFFERENTIAL YES; Platelet Count 194 K/mm3 (150-450); RBC Distribution Width CV 15.6 % (11.6-14.6); RBC Distribution Width SD 55.3 fl (35.1-43.9); Red Blood Count 3.16 M/mm3 (4.2-5.4); White Blood Count 11.7 K/mm3 (4.4-11.0)
[2023-09-10 11:29] LABS: Differential Indicated SCAN CRITERIA MET
--- NOTE | 2023-09-10 11:30 | RAD_ITS ---
HISTORY: dyspnea. TECHNIQUE: XR Chest 1 View. COMPARISON: 06/28/2023. FINDINGS: CARDIOMEDIASTINAL BORDERS: Cardiac silhouette within normal limits in size. Mediastinal contour unremarkable with calcification of the aorta. LUNGS: Hyperinflation with upper lobe lucency and chronic reticular bibasilar scarring, compatible with COPD. New and increased patchy opacity in the left midlung. Decreased patchy opacity in the right lung base. PLEURA: No pleural effusion or pneumothorax seen. OSSEOUS STRUCTURES: Degenerative change. RAD/Chest 1 View (Portable) IMPRESSION: Increased opacity in the left midlung concerning for pneumonia or pneumonitis. Recommend follow-up to resolution. Electronically Signed: Juliana Valles MD at 11:48 EST ,
[2023-09-10 11:31] VITALS: BP 127/96; PULSE 84; RESP 16; TEMP 36.3; O2SAT 94
[2023-09-10 11:36] LABS: Anion Gap 4 (5-15); BUN 12 mg/dL (7-18); BUN/Creat Ratio 16.7 RATIO (10-20); Calcium,Total 8.8 mg/dL (8.5-10.1); Chloride 105 mmol/L (98-107); Creatinine, Serum 0.72 mg/dL (0.55-1.02); EST Glomerular Filtration Rate 82 mL/min (>60); Est Glom Filt Rate - Afr Amer 99 mL/min (>60); Glucose 127 mg/dL (74-106); Potassium 3.5 mmol/L (3.5-5.1); Sodium Level 140 mmol/L (136-145)
[2023-09-10] MEDS: 0.9% Normal Saline (500mL Bag) 500 ML 1000 ML IV (11:37)
[2023-09-10 11:41] VITALS: O2SAT 95
[2023-09-10] MEDS: Morphine 4 MG/ML Syringe IV (12:08)
[2023-09-10] MEDS: Ondansetron 4 MG/2 ML Vial IV (12:08)
[2023-09-10 12:35] VITALS: BP 129/71; PULSE 72; RESP 16; O2SAT 95
[2023-09-10 14:39] VITALS: BP 124/71; PULSE 67; RESP 15; O2SAT 95
[2023-09-10] MEDS: Azithromycin 250 MG Tablet 500 MG PO (15:02)
== END 2023-09-10 15:19 | disposition home or self-care (01) ==
PROVIDERS: Emergency Provider Emergency Medicine; PCP Internal Medicine; Visit Provider Emergency Medicine
DX: S40.012A Contusion of left shoulder, initial encounter (principal); J44.9 Chronic obstructive pulmonary disease, unspecified; Z87.891 Personal history of nicotine dependence; Z85.01 Personal history of malignant neoplasm of esophagus; W01.10XA Fall on same level from slipping, tripping and stumbling with subsequent striking against unspecified object, initial encounter; Y92.009 Unspecified place in unspecified non-institutional (private) residence as the place of occurrence of the external cause; I25.10 Atherosclerotic heart disease of native coronary artery without angina pectoris; I12.9 Hypertensive chronic kidney disease with stage 1 through stage 4 chronic kidney disease, or unspecified chronic kidney disease; N18.9 Chronic kidney disease, unspecified; Z99.81 Dependence on supplemental oxygen; Z79.899 Other long term (current) drug therapy; Z79.51 Long term (current) use of inhaled steroids; Z79.82 Long term (current) use of aspirin; F41.8 Other specified anxiety disorders
CPT/HCPCS: 71045; 73030; 80048; 85025; 93005; 96361; 96374; 96375; 99284; J7030; J2405

== ENCOUNTER 2023-09-27 14:00 | Outpatient (RCR) | payer MEDICARE, SELFPAY | END 2023-10-06 23:59 | LOC: NS 14:00 | PROVIDERS: PCP Internal Medicine; Visit Provider Student in an Organized Health Care Education/Training Program | DX: Z71.3 Dietary counseling and surveillance (principal) ==

== ENCOUNTER 2023-10-27 07:42 | Emergency (ER) | payer MEDICARE, SELFPAY ==
[2023-10-27 07:43] VITALS: BP 125/77; PULSE 88; RESP 24; TEMP 36.6; O2SAT 90
--- NOTE | 2023-10-27 07:44 | EDS_ITS ---
HPI History of Present Illness HPI Narrative: Patient presents with right hip pain that has been constant for the last 6 months. Patient states it is gradually getting worse. Patient describes it as burning. Patient states nothing makes it better and nothing makes it worse. Patient admits to some numbness and tingling in the skin overlying her right hip. Patient denies any weakness. Patient states she is able to ambulate. Patient denies any falls however, daughter states sometimes the patient falls an d does not realize it. 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 BiPAP (biphasic positive airway pressure) dependence Chronic respiratory failure with hypoxia, on home O2 therapy CKD (chronic kidney disease) Closed right hip fracture COPD (chronic obstructive pulmonary disease) Depression Duodenal ulcer Dyspnea on exertion Emphysema lung Essential hypertension Former smoker Former tobacco use GI bleed Hypertension Iron deficiency anemia due to chronic blood loss Nonrheumatic mitral valve regurgitation On home oxygen therapy Pure hypercholesterolemia Symptomatic anemia Weakness Weight loss, non-intentional Home Medications atorvastatin 40 mg tablet 40 mg PO QHS CHOLESTEROL 12/28/17 [History Last Taken 03/13/23] isosorbide mononitrate 30 mg tablet,extended release 24 hr 30 mg PO DAILY HEART/CHEST PAIN 12/28/17 [History Last Taken 03/14/23] multivitamin 1 tab PO DAILY SUPPLEMENT 12/28/17 [History Last Taken 03/14/23] acidophilus 100 million cell-pectin, citrus 10 mg capsule 1 cap PO DAILY GUT HEALTH 11/12/22 [History Last Taken 03/14/23] albuterol sulfate 90 mcg/actuation aerosol inhaler 1 inh inhalation Q4H PRN SHORTNESS OF BREATH 11/12/22 [History Last Taken Unknown] ascorbic acid (vitamin C) 100 mg tablet (Vitamin C) 100 mg PO DAILY SUPPLEMENT 11/12/22 [History Last Taken 03/14/23] calcium carbonate 500 mg-vitamin D3 3.125 mcg (125 unit) tablet 1 tab PO DAILY SUPPLEMENT 11/12/22 [History Last Taken 03/14/23] cranberry fruit concentrate 250 mg chewable tablet (Azo Cranberry) 500 mg PO DAILY UTI PREVENTION 11/12/22 [History Last Taken 03/14/23] fluticasone fur. 100 mcg-umeclid 62.5 mcg-vilant 25 mcg inhalat.powder (Trelegy Ellipta) 1 inh inhalation DAILY COPD 11/12/22 [History Last Taken 03/14/23] omega-3 fatty acids 1,000 mg capsule 1,000 mg PO DAILY SUPPLEMENT 11/12/22 [History Last Taken 03/14/23] roflumilast 500 mcg tablet 500 mcg PO DAILY COPD 11/12/22 [History Last Taken 03/14/23] vitamin B complex 1 cap PO DAILY SUPPLEMENT 11/12/22 [History Last Taken 03/14/23] acetaminophen 325 mg tablet 650 mg (2 x 325 mg) PO Q6H PRN PRN Pain 1-10 Or Fever >100.7 #0 tabs 11/17/22 [Rx Last Taken Unknown] tramadol 50 mg tablet 50 mg PO Q6H PRN pain #40 tabs 03/15/23 [Rx Last Taken Unknown] aspirin 81 mg tablet,delayed release (Adult Aspirin Regimen) 81 mg PO DAILY heart 06/24/23 [History Last Taken Unknown] docusate sodium 50 mg capsule (Stool Softener) 50 mg PO DAILY stools 06/24/23 [History Last Taken Unknown] echinacea 380 mg capsule 380 mg PO DAILY dietary suplement 06/24/23 [History Last Taken Unknown] pantoprazole 40 mg tablet,delayed release 40 mg PO DAILY #30 tabs 06/30/23 [Rx Last Taken Unknown] Disability Placard #1 ea 07/13/23 [Rx Last Taken Unknown] ondansetron HCl 4 mg tablet 4 mg PO TID PRN nausea and vomiting #30 tabs 07/13/23 [Rx Last Taken Unknown] lorazepam 0.5 mg tablet 0.5 mg PO Q8H PRN anxiety 08/02/23 [History Last Taken Unknown] sertraline 50 mg tablet 50 mg PO DAILY 08/02/23 [History Last Taken Unknown] azithromycin 250 mg tablet (Zithromax) 250 mg PO DAILY 4 days #4 tabs 09/10/23 [Rx Last Taken Unknown] oxycodone 5 mg tablet 5 mg PO Q4H PRN 09/17/23 [History Last Taken Unknown] Allergy/AdvReac Type Severity Reaction Status Date / Time cefaclor [From [facility], 1928–[facility]] Allergy Severe Hives Verified 10/27/23 07:45 Family History Father Myocardial infarction, Onset Age: 43 Brother Myocardial infarction, Onset Age: 52 Brother CAD (coronary artery disease) Mother Pancreatic cancer Grandfather Colon cancer maternal Brother Cancer unknown blood cancer dx Surgical History (Updated 10/27/23 @ 08:[address] 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 ROS ED Constitutional Constitutional ED: Denies chills or fever(s) Eyes Eyes: Denies blurry vision or change in vision ENT ENT ED: Denies rhinorrhea or sore throat Cardiovascular Cardiovascular: Denies chest pain or palpitations Respiratory/Chest Respiratory/Chest: Denies cough or dyspnea Gastrointestinal Gastrointestinal: Denies nausea or vomiting Genitourinary Genitourinary ED: Denies dysuria or hematuria Musculoskeletal Musculoskeletal: Denies back pain or neck pain Integumentary Denies abscess or rash Neurologic Neurologic: Reports headache(s); Denies weakness Allergic/Immunologic Allergic/Immunologic ED: Denies mouth swelling or urticaria EXAM Physical Exam Const Vital Signs: 10/27/23 07:43 Temperature 97.8 F Temperature Source Temporal Pulse Rate 88 Respiratory Rate 24 H Blood Pressure 125/77 H Blood Pressure Mean 93 Pulse Ox 90 Oxygen Delivery Method Nasal Cannula Positive well nourished and well developed General Appearance ED: well developed and NAD HEENT Reports moist mucous membranes Neck full ROM and supple Extremity Extremity Narrative: There is tenderness palpation over the right hip. There is no obvious deformity noted. There is no pain with internal or external rotation. Neuro oriented x3, CN's II-XII intact bilaterally, moves all extremities and no sensory deficits noted Sensorium / Orientation: alert Motor Exam: strength 5/5 throughout Psych mental status grossly normal MDM MDM MDM Narrative Medical decision making narrative: Differential diagnosis includes loosening of the prosthesis, periprosthetic fracture, degenerative arthritis, muscle strain, neuropathy, and radiculopathy. X-rays of the right hip will be obtained to assess for periprosthetic fracture and loosening of the prosthesis. Radiography Diagnostic Testing: Clinical Impression(s) from Imaging Studies Hip/Pelvis X-Ray 10/27/23 08:26 IMPRESSION: Status post right total hip replacement. There is good alignment. No acute abnormality is seen. Electronically Signed: Shreyas Westbrook MD at 8:38 EST , X-rays of the right hip were obtained. There are 3 views. On my independent interpretation, there is no acute fracture or dislocation noted. There is no lo osening of the prosthesis. There are some degenerative changes of the lumbar spine. Radiologist also interpreted the x-ray and agrees. Treatment and Re-Evaluation Narrative: Patient was given injection of morphine here. Patient was able to ambulate here in the emergency department. Patient was advised of her findings. Patient was instructed to continue her pain medication as previously prescribed. Patient was instructed to use ice to the area. Patient was instructed to follow-up with her primary care physician in 5 to 7 days. Patient was instructed to return if worse in any way. Patient understood and was agreeable with the plan. All questions were answered. Discharge Plan Triage Chief Complaint: Lower Extremity Injury ED Provider: Ean Langley Dx/Rx/DC Orders Clinical Impression: Acute right hip pain, Esophageal cancer Instructions: ED Pain, Acute, Uncertain Cause Prescriptions: No Action echinacea 380 mg capsule 380 mg PO DAILY Rx Instructions: administer with meals Stool Softener 50 mg capsule 50 mg PO DAILY aspirin [Adult Aspirin Regimen] 81 mg tablet,delayed release (DR/EC) 81 mg PO DAILY Hold Instructions: Resume on 07/14/23. lorazepam 0.5 mg tablet 0.5 mg PO Q8H PRN (Reason: anxiety) Rx Instructions: taking 1/2 tab sertraline 50 mg tablet 50 mg PO DAILY ondansetron HCl 4 mg tablet 4 mg PO TID PRN (Reason: nausea and vomiting) Qty: 30 0RF Rx Instructions: take one tab up to TID PO prior to XRT and with nausea oxycodone 5 mg tablet 5 mg PO Q4H PRN multivitamin 1 EACH tablet 1 tab PO DAILY atorvastatin 40 MG tablet 40 mg PO QHS isosorbide mononitrate 30 MG tablet 30 mg PO DAILY omega-3 fatty acids 1,000 mg Capsule 1,000 mg PO DAILY Vitamin C 100 mg Tablet 100 mg PO DAILY albuterol sulfate 90 mcg/actuation HFA aerosol inhaler 1 inh INHALATION Q4H PRN (Reason: SHORTNESS OF BREATH ) vitamin B complex Capsule 1 cap PO DAILY calcium carbonate-vitamin D3 500 mg-3.125 mcg (125 unit) Tablet 1 tab PO DAILY roflumilast 500 mcg tablet 500 mcg PO DAILY acidophilus-pectin, citrus 100 million cell-10 mg Capsule 1 cap PO DAILY Trelegy Ellipta 100-62.5-25 mcg blister with device 1 inh INHALATION DAILY Azo Cranberry 250 mg Tablet,Chewable 500 mg PO DAILY acetaminophen 325 mg Tablet 650 mg PO Q6H PRN PRN (Reason: Pain 1-10 Or Fever >100.7) Qty: 0 0RF tramadol 50 mg tablet 50 mg PO Q6H PRN (Reason: pain) Qty: 40 0RF Rx Instructions: ONE OR TWO EVERY SIX HOURS FOR PAIN, MAY TAKE WITH 650 MG TYLENOL IF YOU DESIRE pantoprazole 40 mg Tablet,Delayed Release (Dr/Ec) 40 mg PO DAILY Qty: 30 0RF azithromycin [Zithromax] 250 mg tablet 250 mg PO DAILY 4 Days Qty: 4 0RF Rx Instructions: start on day 2 of therapy (DME) Disability Placard See Rx Instructions .Route .MEDSUPPLY Qty: 1 0RF Rx Instructions: Lifetime; No expiration Primary Care Provider: Nicci King Referrals: Nicci King DO [Primary Care Provider] - 5-7 Days Disposition Disposition: Home, Self Care
--- NOTE | 2023-10-27 08:26 | RAD_ITS ---
STUDY: X-RAY - PELVIS AND RIGHT HIP REASON FOR EXAM: Female, 82 years old. 6 month history of right hip pain. TECHNIQUE: 3 views of the pelvis and hip. COMPARISON: Comparison is made with prior study dated September 08, 2020. FINDINGS: Moderate amount of fecal material is seen in the colon. Normal visualized soft tissue structures. There is a 1.5 cm rounded sclerotic focus overlying the left sacral wing. This most likely represents a bone island. This is unchanged. Normal bilateral superior and inferior pubic rami. There are degenerative changes of the pubic symphysis with articular narrowing and sclerosis. Normal bilateral ischial tuberosities. The patient is status post right total hip replacement. There is good alignment. No acute abnormality is seen. RAD/HIP, UNI W/ Pelvis 2-3 Views IMPRESSION: Status post right total hip replacement. There is good alignment. No acute abnormality is seen. Electronically Signed: Shreyas Westbrook MD at 8:38 EST ,
[2023-10-27] MEDS: Morphine 4 MG/ML Syringe IM (08:37)
[2023-10-27 08:46] VITALS: O2SAT 97
[2023-10-27 09:33] VITALS: O2SAT 99
[2023-10-27 09:45] VITALS: BP 132/77; PULSE 71; RESP 16; TEMP 36.8; O2SAT 99
== END 2023-10-27 09:46 | disposition home or self-care (01) ==
PROVIDERS: Emergency Provider Emergency Medicine; PCP Internal Medicine; Visit Provider Emergency Medicine
DX: M25.551 Pain in right hip (principal); C15.9 Malignant neoplasm of esophagus, unspecified; J44.9 Chronic obstructive pulmonary disease, unspecified; Z87.891 Personal history of nicotine dependence; I25.10 Atherosclerotic heart disease of native coronary artery without angina pectoris; I12.9 Hypertensive chronic kidney disease with stage 1 through stage 4 chronic kidney disease, or unspecified chronic kidney disease; N18.9 Chronic kidney disease, unspecified; Z99.81 Dependence on supplemental oxygen; Z79.899 Other long term (current) drug therapy; Z79.51 Long term (current) use of inhaled steroids; Z79.82 Long term (current) use of aspirin; F41.8 Other specified anxiety disorders; Z90.49 Acquired absence of other specified parts of digestive tract; Z96.641 Presence of right artificial hip joint
CPT/HCPCS: 73502; 96372; 99282

== ENCOUNTER → 2023-11-01 | Outpatient (CLI) | payer MEDICARE, SELFPAY ==
[2023-11-01 17:44] LABS: Absolute Lymphocyte Count 0.59 X10^3/uL (0.83-4.51); Basophil# 0.02 X10^3/uL; Basophil% 0.2 % (0-1); Eosinophil# 0.23 X10^3/uL; Eosinophils% 2.3 % (0-5); Hematocrit 31.9 % (37-47); Hemoglobin 10.2 g/dL (12.0-15.0); Lymphocyte # 0.59 X10^3/ul (0.83-4.51); Mean Corpuscular Hgb 31.8 pg (27.0-32.0); Mean Corpuscular Volume 99.4 fL (81-99); Mean Platelet Vol. 11.8 fl (6.2-12.0); Monocyte% 9.2 % (0-10); NRBC Flagged by Analyzer 0 % (0-5); Neutrophil # 8.04 X10^3/uL (2.7-7.7); POSITIVE DIFFERENTIAL YES; Platelet Count 215 K/mm3 (150-450); RBC Distribution Width CV 15.6 % (11.6-14.6); RBC Distribution Width SD 57.9 fl (35.1-43.9); Red Blood Count 3.21 M/mm3 (4.2-5.4); White Blood Count 9.8 K/mm3 (4.4-11.0)
[2023-11-01 18:05] LABS: Differential Comment SCANNED; Differential Indicated SCAN CRITERIA MET
[2023-11-01 18:14] LABS: AST(SGOT) 18 U/L (15-37); Alanine Aminotransfer ALT/SGPT 18 U/L (13-56); Albumin, Serum 3.5 g/dL (3.2-5.0); Alkaline Phosphatase 77 U/L (45-117); Anion Gap 4 (5-15); BUN 18 mg/dL (7-18); BUN/Creat Ratio 21.8 RATIO (10-20); Calcium,Total 9.5 mg/dL (8.5-10.1); Chloride 109 mmol/L (98-107); Creatinine, Serum 0.83 mg/dL (0.55-1.02); EST Glomerular Filtration Rate 70 mL/min (>60); Est Glom Filt Rate - Afr Amer 84 mL/min (>60); Globulin 3.6 g/dL (2.2-4.2); Glucose 109 mg/dL (74-106); Potassium 3.7 mmol/L (3.5-5.1); Protein, Total 7.1 g/dL (6.4-8.2); Sodium Level 141 mmol/L (136-145); Thyroid Stim Hormone (TSH) 1.71 uIU/mL (0.358-3.74)
[2023-11-01 18:30] LABS: Vitamin B12 898 pg/mL (211-911)
== END | disposition home or self-care (01) ==
PROVIDERS: PCP Internal Medicine; Referring Provider Internal Medicine; Visit Provider Internal Medicine
DX: R41.3 Other amnesia (principal)
CPT/HCPCS: 36415; 80053; 82607; 84443; 85025

== ENCOUNTER → 2024-01-17 | Outpatient (CLI) | payer MEDICARE, SELFPAY ==
--- NOTE | 2024-01-17 09:42 | RAD_ITS ---
INDICATION: COPD EXAMINATION/TECHNIQUE: X-RAY - XR Chest 2 Views COMPARISON: No relevant prior comparison study available FINDINGS: LINES/DEVICES: None. LUNGS: The lungs are hyperinflated with COPD changes. Patchy opacity/infiltrate in the left midlung zone. No evidence of pleural effusions. MEDIASTINUM AND CARDIOVASCULAR STRUCTURES: Cardiac silhouette not enlarged. Central airways and mediastinal contour are unremarkable. BONES AND SOFT TISSUES: Levoscoliosis and increased kyphosis of the thoracic spine. RAD/Chest PA and Lateral IMPRESSION: Vague opacity in the left midlung zone could represent early infiltrate. Electronically Signed: Yaakov Marcelino MD at 10:11 EDT ,
== END | disposition home or self-care (01) ==
LOC: MTRAD 09:41
PROVIDERS: PCP Internal Medicine; Referring Provider Internal Medicine Pulmonary Disease; Visit Provider Internal Medicine Pulmonary Disease
DX: J44.9 Chronic obstructive pulmonary disease, unspecified (principal)
CPT/HCPCS: 71046

== ENCOUNTER → 2024-03-21 | Outpatient (CLI) | payer MEDICARE, SELFPAY ==
--- NOTE | 2024-03-21 11:30 | PET_ITS ---
EXAMINATION: FDG PET-CT INDICATIONS: An 82-year-old female with a history of esophageal carcinoma presenting for restaging examination. COMPARISON EXAMINATION: FDG PET/CT study dated 07/27/2023. INDEX LESION SIZE SUV INTERPRETATION NEW: Left upper lung field, left upper lobe 1.8 Quantitative criteria for viable neoplasm are not fulfilled, sequential radiologic investigation recommended. PERSISTENT: Gastric cardia 23.9 mm comp to 25.5 mm 4.1 comp to 4.5 Fulfills quantitative criteria for viable neoplasm, minimal interim metabolic change. TECHNIQUE: Following the intravenous administration of 10.4 mCi of F-18 deoxyglucose via the left hand, multiplanar image acquisitions of the head, neck, chest, abdomen and pelvis to level of mid-thigh, lower extremities obtained at one hour post radiopharmaceutical administration contemporaneously interpreted with the current CT of the head, neck, chest, abdomen and pelvis to level of mid-thigh, lower extremities dated 03/21/24 via coregistration and previous FDG PET CT study dated 07/27/2023 reveal: SERUM GLUCOSE LEVEL: 101 mg/dl. HEIGHT: 62 inches. WEIGHT: 133 lbs. FINDINGS: Head/Neck: There is no evidence of abnormal increased glucose metabolism in the pharyngeal mucosal space, parapharyngeal space, bilateral-lateral and anterior neck, hypopharynx and distribution of the laryngeal structures. The visualized portion of the cerebral cortical-subcortical structures demonstrate symmetric and preserved glucose metabolism. CHEST: Facilitated uptake is noted in the left mid anteromedial lung zone, presumed left upper lobe. The calculated maximum standard uptake value is 1.8. Otherwise, the previously defined morphologic-anatomic changes described on the prior FDG PET-CT report dated 07/27/23, are essentially unchanged on the current examination. Abdomen/Pelvis: Increased radiopharmaceutical concentration is defined in the gastric cardia. The calculated maximum standard uptake value is 4.1 compared to 4.5. The maximum axial diameter of the metabolic abnormality is 23.9 mm compared to 25.5 mm. Normal physiologic distribution of the radiopharmaceutical is apparent in the hepatic and splenic parenchyma, both renal units, bladder and visualized intestinal tract. Diffuse radiopharmaceutical concentration is noted in all four quadrants of the abdomen and pelvis. Otherwise, the previously defined morphologic-anatomic changes described on the prior FDG PET-CT report dated 07/27/23, are essentially unchanged on the current examination. Skeletal: A right hip arthroplasty is defined. Degenerative changes are noted in the cervical, thoracic and lumbar spine. PET/PET/CT Tumor Base -Thigh Init IMPRESSION: 1. The increase in radiopharmaceutical concentration redefined in the region of the gastric cardia continues to fulfill quantitative criteria for viable neoplasm with single point technique. 2. Enhanced tracer uptake currently identified in the left mid anteromedial lung field does not fulfill quantitative criteria for viable neoplastic transformation. (Radames et al, Annals of Internal Medicine, 138:724, 2003) 3. Metabolic and/or anatomic stability may be ensured in the left hemithorax pulmonary parenchymal abnormality with repeat FDG PET study and/or CT of the thorax in three-six months if clinically indicated. ([place], Journal of Nuclear Medicine 45:88, P2004 Miguel A, Seminars in Thoracic and Cardiovascular Surgery 14:292, 2001) 4. Overall, compared to the prior FDG PET CT study dated 07/27/23, persistent increased uptake noted at the level of the gastric cardia continues to fulfill quantitative criteria for viable neoplasm. Electronic Signature Osmin Donohue D.O. Accurate Quantification of SUVs for this report are calculated using the exclusive [employer], ([place] Patent No. [id number] [phone] [place] patent [id number] [phone] [id number] ). Standardization and correction of the FDG SUV metric exclusively available with [employer] intellectual property, allow for vendor non-specific objective quantitative sequential FDG PET-CT comparison and otherwise unobtainable optimization of the sensitivity and specificity of the examination. [email or web address] Electronically Signed: Osmin Donohue DO at 8:48 EDT ,
== END | disposition home or self-care (01) ==
LOC: ONC 11:16
PROVIDERS: PCP Internal Medicine; Referring Provider Internal Medicine Pulmonary Disease; Visit Provider Internal Medicine Pulmonary Disease
DX: R91.1 Solitary pulmonary nodule (principal)
CPT/HCPCS: 78815; A9552